=== PATIENT | female | born 1970 | race Caucasian/White ===

== ENCOUNTER 2020-08-24 21:05 | Observation (INO) | payer BC, SELFPAY ==
[2020-08-24] VITALS (17 sets, daily range): BP systolic 127–141; BP diastolic 72–91; PULSE 63–81; RESP 12–25; TEMP 36.5; O2SAT 95–100
--- NOTE | 2020-08-24 21:15 | RT.EKG_ITS ---
APPROVED REPORT Exam: Resting ECG Reason for Exam: dr orozco Patient Location: E HR:69 bpm ECG Measurements Heart Rate 69 AXIS MO 150 P -32 QRSd 94 QRS 70 QT 386 T 4 QTc 412 Conclusion Sinus rhythm...normal P axis, V-rate 60- 99 Probable left ventricular hypertrophy...multiple LVH criteria Abnormal T, consider ischemia, anterior leads...T <-0.20mV, V2-V4. T wave inversion in lead III, aVF, V2-4. 1mm ST depression in V3. No STEMI. I have reviewed and interpreted ECG and agree with software generated interpretation.
--- NOTE | 2020-08-24 21:24 | ED.GENADUL_ITS ---
Discharge Plan Disposition Patient Disposition: [facility] INPATIENT Condition: Stable Discharge Details Clinical Impression: Palpitations, Elevated troponin, Abnormal EKG Admit Date/Time: 08/24/20 22:56 Admit Provider: Baldev Tong Attending Provider: Baldev Tong Primary Care Provider: Evert Perdomo ED Provider: Radha Haro Discharge Data Discharge Date/Time-TO BE ENTERED AT DEPARTURE: 08/25/20 00:15 Medical Decision Making 50-year-old female with a history of breast cancer diagnosed in 2011 with double ostectomy, now with recurrence since February 2019 on monthly Faslodex presents with palpitations since her last Faslodex injection 4 days ag Denies any chest pain, shortness of breath or dizziness. She is hemodynamically stable. EKG notes T wave inversions in inferior and anterior leads and ST depression and V3. No STEMI but EKG is concerning. Will obtain a cardiac work- up and discuss with cardiology. She requests [facility] as she is followed by her pcp and oncology there. Labs reviewed and note an elevated troponin at 0.1. Magnesium 1.7, will replete. Chest x-ray negative. Case discussed and EKG reviewed with [facility] cardiology Dr. Hahn --he does not feel the EKG and the troponin are consistent with ischemia. Suspect most likely cardiomyopathy. Is agreeable with plan for aspirin but does not recommend P lavix or heparin. Accepts patient for transfer tomorrow as there are currently no beds available and accepting transfers in [address] Hahn --he recommends contacting him if a repeat troponin is greater than 2. Plan discussed with patient and she is agreeable. Case discussed with hospitalist who accepts patient for admission while awaiting transfer to [facility]. Medical Records Medical records reviewed: Yes I reviewed the patient's medical records. Imaging Data Radiologic Study: Radiologist's impression: XR CHEST 2V PA LATERAL CLINICAL HISTORY: palpitations, r/o acute disease TECHNIQUE: 2D digital imaging was performed. COMPARISON: No exams were available for comparison FINDINGS: MEDIASTINUM: Normal. HEART: Normal. PULMONARY VASCULATURE: Normal. LUNGS: Clear. PLEURAL SPACE: No pleural effusion or pneumothorax. BONE:Mild pectus excavatum deformity. OTHER FINDINGS:Surgical clips anterior chest related to previous breast surgery. IMPRESSION: No acute pulmonary findings. Lab Data Lab results reviewed: Yes I reviewed the patient's lab results. ECG Data Attestation: I personally reviewed and interpreted this ECG (s) as follows: Interpretation: Rate of 69, sinus, T wave inversions in lead III, aVF, V2, V3 and V4. Questionable ST depression in V3. No STEMI. HPI General Mode of arrival: ambulatory . Date/Time Provider Initiated Documentation: 08/24/20 21:23 . Limitations to Documentation: no limitations . Information obtained by: patient . HPI Narrative: Patient is a 50-year-old female with a history of breast cancer first diagnosed in 2011 treated with double discectomy and a clean lymph node resection and tamoxifen with negative follow-up PET scans with recurrence of breast cancer noted on a cystectomy to the breast in February 2019 treated briefly with tamoxifen and currently now on Faslodex for the past 6 months presents with a feeling of skipped beats after her Faslodex injection on Thursday. Patient states she has been receiving Faslodex injections once monthly for the past 6 months and denies any previous reaction to this. She states within 2 to 3 hours of the injection she developed sensation of her heart skipping or missing a beat . She denies any fever, chest pain, shortness of breath, dizziness, nausea, vomiting. She denies any recent illnesses with fever, cough, injury, other new medications including antibiotics. Patient states she called her oncologist at [facility] regarding the symptoms for the past 2 days and was advised to come to the ER for an EKG. Related Data Home Medications Medication Instructions Recorded Confirmed bupropion HCl 300 mg PO DAILY 08/24/20 08/24/20 fulvestrant 500 mg IM QMONTH 08/24/20 08/24/20 lisdexamfetamine [Vyvanse] 40 mg PO DAILY 08/24/20 08/24/20 melatonin 10 mg PO HS PRN 08/24/20 08/24/20 testosterone 1 packet TRANSDERMAL QAM 08/24/20 08/24/20 trazodone 100 mg PO HS 08/24/20 08/24/20 Allergies Allergy/AdvReac Type Severity Reaction Status Date / Time No Known Allergies Allergy Unverified 08/24/20 21:25 Review of Systems All systems reviewed & are unremarkable except as noted in HPI and below Constitutional Constitutional: Reports as per HPI, Denies chills and Denies fever(s) Eyes Eyes: Denies blurry vision ENT Ears, Nose, Mouth, and Throat: Denies dizziness, Denies sore throat and Denies throat swelling Cardiovascular Cardiovascular: Denies chest pain and Denies dyspnea Respiratory Respiratory: Denies cough and Denies dyspnea Gastrointestinal Gastrointestinal: Denies abdominal pain, Denies diarrhea and Denies vomiting Genitourinary Genitourinary: Denies hematuria and Denies dysuria Musculoskeletal Musculoskeletal: Denies back pain and Denies numbness Integumentary/Breasts Skin/Breast: Denies lesions and Denies rash Neurologic Neurologic: Denies dizziness, Denies localized weakness and Denies numbness Allergic/Immunologic Allergic/Immunologic: Denies throat swelling [facility] Medical History Breast cancer Surgical History H/O mastectomy Social History Smoking/Tobacco Use Status: Never Smoking risk assessment performed?: Yes Alcohol Intake: current Alcohol Intake frequency: holidays/special occasions only Substance use type: does not use Do you feel safe at home: Yes Do you feel safe in your relationship?: Yes Exam Const General: cooperative, healthy appearing and no acute distress HENMT Head: normal to inspection Face and sinus: normal facial exam Eyes General: appearance normal, both eyes and all related structures Pupils: PERRL EOM: EOM intact bilaterally Neck Neck: normal visual inspection and No submandibular swelling Lymphatic: no lymphadenopathy noted Chest Chest: normal inspection of the chest and no tenderness Chest/axillae images: 1. Well healed incision scar from prior cystectomy. No cellulitis. Resp Effort & Inspection: normal respiratory effort and able to speak in complete sentences Auscultation: clear to auscultation bilaterally Cardio Rate: regular rate Rhythm: regular rhythm GI Inspection: normal to inspection Palpation: soft, not firm, not rigid and nontender Auscultation: normal bowel sounds Skin General skin exam: no rashes or lesions noted Neuro General: patient alert, patient awake and patient oriented x3 Cognition: normal cognition Speech: speech normal Motor: muscle tone normal throughout Sensory Exam: no sensory deficits noted Extrem General: normal to inspection, full ROM, capillary refill normal, no calf tenderness bilaterally and no edema Psych Appearance: grossly normal Mental Status: mental status grossly normal Speech and Movement: speech and movement normal Affect: normal affect
[2020-08-24 21:40] LABS: Abs Immature Grans 0.05 10^3/uL (0.0-0.06); Absolute Basophil Count 0.03 10^3/uL (0.0-0.2); Absolute Eosinophil Count 0.07 10^3/uL (0.0-0.7); Absolute Lymphocyte Count 1.94 10^3/uL (1.2-3.4); Absolute Monocyte Count 0.55 10^3/uL (0.1-0.8); Absolute Neutrophil Count 6.83 10^3/uL (1.2-6.7); Basophils % 0.3; Eosinophils % 0.7; HCT 40.3 % (36.0-46.0); HGB 13.3 g/dL (11.2-15.7); Immature Grans % 0.5; Lymphocytes % 20.5; MCH 31.1 pg (27.0-33.0); MCV 94.2 fL (80-95); MPV 8.8 fL (8.0-11.0); Monocytes % 5.8; Neutrophils % 72.2; Nucleated RBC 0 %; Platelet Count 223 10^3/uL (130-400); RBC 4.28 10^6/uL (3.93-5.22); RDW 12.4 % (11.7-14.6); RDW-SD 42.8 fL; WBC 9.47 10^3/uL (4.4-10.8)
[2020-08-24 21:58] LABS: ALT 30 U/L (14-59); AST 22 U/L (15-37); Albumin 3.5 g/dL (3.4-5.0); Alkaline Phosphatase 50 U/L (46-116); Anion Gap 7.5 mmol/L (3-11); BUN 27 mg/dL (7-18); Bilirubin, Total 0.3 mg/dL (0.2-1.0); CO2 27.5 mmol/L (21.0-32.0); CREATININE 0.9 mg/dL (0.55-1.02); Calcium 9.2 mg/dL (8.5-10.1); Chloride 106 mmol/L (98-107); Glucose 90 mg/dL (74-106); Magnesium 1.7 mg/dL (1.8-2.4); Potassium 3.8 mmol/L (3.5-5.1); Sodium 141 mmol/L (136-145); Total Protein 6.5 g/dL (6.4-8.2)
--- NOTE | 2020-08-24 23:10 | DI.RAD_ITS ---
Exam(s) XR CHEST 2V PA LATERAL EXAM: XR CHEST 2V PA LATERAL CLINICAL HISTORY: palpitations, r/o acute disease TECHNIQUE: 2D digital imaging was performed. COMPARISON: No exams were available for comparison FINDINGS: MEDIASTINUM: Normal. HEART: Normal. PULMONARY VASCULATURE: Normal. LUNGS: Clear. PLEURAL SPACE: No pleural effusion or pneumothorax. BONE:Mild pectus excavatum deformity. OTHER FINDINGS:Surgical clips anterior chest related to previous breast surgery. IMPRESSION: No acute pulmonary findings. DATA REPOSITORY: RADIATION DOSE DELIVERED:
[2020-08-24] MEDS: Aspirin 325 MG TAB PO (23:14)
[2020-08-24 23:23] LABS: Source Nasal/Nares
--- NOTE | 2020-08-24 23:30 | DI.VRAD_ITS ---
PROCEDURE INFORMATION: Exam: XR Chest Exam date and time: 08/24/2020 11:06 PM Age: 50 years old Clinical indication: Pain; Other: Palpitations, rule out acute disease TECHNIQUE: Imaging protocol: XR of the chest. Views: 2 views. COMPARISON: No relevant prior studies available. FINDINGS: Lungs: Unremarkable. No consolidation. Pleural spaces: Unremarkable. No pleural effusion. No pneumothorax. Heart/Mediastinum: Unremarkable. No cardiomegaly. Bones/joints: Unremarkable. Soft tissues: Surgical clips are noted in the chest wall regions bilaterally, presumably related to previous breast surgery. IMPRESSION: No evidence for acute abnormality. Dictated and Authenticated by: My Hart MD. Ordering:FLACO Garcia MD
[2020-08-24] MEDS: MAGNESIUM SULFATE 1 GM/100 ML BAG IVPB (23:53)
[2020-08-25] VITALS (8 sets, daily range): BP systolic 94–106; BP diastolic 47–66; PULSE 56–77; RESP 14–20; TEMP 36.5–36.9; O2SAT 95–98
[2020-08-25 00:14] LABS: COVID-19 PCR Negative (Negative)
[2020-08-25 00:27] LABS: Troponin I 0.11 ng/mL (<0.06)
--- NOTE | 2020-08-25 07:17 | W.PM.HP.N ---
Date of service: 08/24/20 Time of Service: 21:00 [facility] Medical History Breast cancer Surgical History H/O mastectomy Social History Smoking/Tobacco Use Status: Never Smoking risk assessment performed?: Yes Alcohol Intake: current Alcohol Intake frequency: holidays/special occasions only Substance use type: does not use Do you feel safe at home: Yes Do you feel safe in your relationship?: Yes Meds Allergies and Home Medications Allergies Allergy/AdvReac Type Severity Reaction Status Date / Time No Known Allergies Allergy Unverified 08/24/20 21:25 Home Medications Medication Instructions Recorded Confirmed Type bupropion HCl 300 mg PO DAILY 08/24/20 08/24/20 History fulvestrant 500 mg IM QMONTH 08/24/20 08/24/20 History lisdexamfetamine [Vyvanse] 40 mg PO DAILY 08/24/20 08/24/20 History melatonin 10 mg PO HS PRN 08/24/20 08/24/20 History testosterone 1 packet TRANSDERMAL QAM 08/24/20 08/24/20 History trazodone 100 mg PO HS 08/24/20 08/24/20 History Results Labs Result diagrams: 08/24/20 21:30 08/24/20 21:30 Labs: Laboratory Results - last 24 hr 08/24/20 08/24/20 08/24/20 21:30 21:30 23:22 WBC 9.47 RBC 4.28 Hgb 13.3 Hct 40.3 MCV 94.2 MCH 31.1 MCHC 33.0 RDW 12.4 Plt Count 223 MPV 8.8 Immature Gran % 0.5 Neutrophils % 72.2 Lymphocytes % 20.5 Monocytes % 5.8 Eosinophils % 0.7 Basophils % 0.3 Nucleated RBC % 0 Absolute Neutrophils 6.83 H Absolute Lymphocytes 1.94 Absolute Monocytes 0.55 Absolute Eosinophils 0.07 Absolute Basophils 0.03 Sodium 141 Potassium 3.8 Chloride 106 Carbon Dioxide 27.5 Anion Gap 7.5 BUN 27 H Creatinine 0.9 Estimated GFR/1.73 m2 >= 60.00 Glucose 90 Calcium 9.2 Magnesium 1.7 L Total Bilirubin 0.3 AST 22 ALT 30 Alkaline Phosphatase 50 Troponin I 0.10 H* Total Protein 6.5 Albumin 3.5 COVID-19 Source Nasal/Nares SARS-CoV-2 (PCR) Negative 08/25/20 08/25/20 00:00 01:53 WBC RBC Hgb Hct MCV MCH MCHC RDW Plt Count MPV Immature Gran % Neutrophils % Lymphocytes % Monocytes % Eosinophils % Basophils % Nucleated RBC % Absolute Neutrophils Absolute Lymphocytes Absolute Monocytes Absolute Eosinophils Absolute Basophils Sodium Potassium Chloride Carbon Dioxide Anion Gap BUN Creatinine Estimated GFR/1.73 m2 Glucose Calcium Magnesium Total Bilirubin AST ALT Alkaline Phosphatase Troponin I 0.11 H* 0.10 H* Total Protein Albumin COVID-19 Source SARS-CoV-2 (PCR) Last Vital Signs Temp 36.9 C 08/25/20 03:10 Pulse 62 08/25/20 04:01 Resp 20 08/25/20 03:10 BP 96/60 L 08/25/20 03:10 Pulse Ox 96 08/25/20 03:10
--- NOTE | 2020-08-25 07:55 | HPE_ITS ---
Date of service: 08/24/20 Time of Service: 21:00 Assessment and Plan Assessment and plan (1) Palpitations: Status: Acute Assessment and plan: These are stable. Will admit and monitor. (2) Elevated troponin: Status: Acute Assessment and plan: Serial troponins will be done. Patient is accepted for transfer to [facility] in [place], [place] to the cardiology service when a bed is available. (3) Abnormal EKG: Status: Acute Assessment and plan: ECG is non specific. No prior ECG is available for comparison. History of Present Illness History of Present Illness Chief Complaint: Palpitations Narrative: This 50-year-old female has a history of breast cancer. She had mastectomies done in 2011. She developed a cyst that was found to be malignant a year ago. She has been treated with Faslodex by oncology at [facility]. Her last dose was done 3 days ago and she developed some nausea following that dose. She also developed intermittent palpitations since then. She has felt single episodes of skipped beats but no episodes of rapid palpitations. She called her oncologist who recommended she get a electrocardiogram done. She could not get it done through her doctor's office so she presented to the emergency department. Evaluation was done in the department and she was found to have a slightly abnormal electrocardiogram and a slightly elevated troponin. Consultation was done with [facility] cardiology who accepted her for transfer however no beds were available so she is going to be transferred on August 25 when a bed is available. Echocardiogram is not available here in the next week. Review of Systems Constitutional Constitutional: Denies body ache(s), Denies chills, Denies fever(s) and Denies weakness Cardiovascular Cardiovascular: Denies chest pain, Reports irregular heart rhythm and Denies dyspnea Respiratory Respiratory: Denies cough and Denies dyspnea Gastrointestinal Gastrointestinal: Denies constipation, Denies diarrhea and Denies vomiting Musculoskeletal Musculoskeletal: Denies joint swelling Neurologic Neurologic: Denies weakness [facility] Medical History (Updated 08/24/20 @ 22:58 by Radha Haro DO) Breast cancer Surgical History (Updated 08/24/20 @ 22:15 by Filomena Barba) H/O mastectomy Social History Smoking/Tobacco Use Status: Never Smoking risk assessment performed?: Yes Alcohol Intake: current Alcohol Intake frequency: holidays/special occasions only Substance use type: does not use Do you feel safe at home: Yes Do you feel safe in your relationship?: Yes Meds Allergies and Home Medications Allergies Allergy/AdvReac Type Severity Reaction Status Date / Time No Known Allergies Allergy Unverified 08/24/20 21:25 Home Medications Medication Instructions Recorded Confirmed Type bupropion HCl 300 mg PO DAILY 08/24/20 08/24/20 History fulvestrant 500 mg IM QMONTH 08/24/20 08/24/20 History lisdexamfetamine [Vyvanse] 40 mg PO DAILY 08/24/20 08/24/20 History melatonin 10 mg PO HS PRN 08/24/20 08/24/20 History testosterone 1 packet TRANSDERMAL QAM 08/24/20 08/24/20 History trazodone 100 mg PO HS 08/24/20 08/24/20 History Exam Const General: cooperative, healthy appearing, comfortable and no acute distress Nutritional Appearance: average body habitus and well nourished Neck Neck: normal visual inspection and no lymphadenopathy Resp Effort & Inspection: normal respiratory effort and able to speak in complete sentences Auscultation: clear to auscultation bilaterally Cardio Jugular venous pressure: no JVD Rhythm: regular rhythm and other (occasional extra beats that are PVC on monitor. ) Heart Sounds: S1 normal, S2 normal, no click, no gallops and no murmurs GI Inspection: normal to inspection and non-distended Palpation: nontender and No ascites Neuro General: patient alert, patient awake and patient oriented x3 Results Labs Result diagrams: 08/24/20 21:30 08/24/20 21:30 Labs: Laboratory Results - last 24 hr 08/24/20 08/24/20 08/24/20 21:30 21:30 23:22 WBC 9.47 RBC 4.28 Hgb 13.3 Hct 40.3 MCV 94.2 MCH 31.1 MCHC 33.0 RDW 12.4 Plt Count 223 MPV 8.8 Immature Gran % 0.5 Neutrophils % 72.2 Lymphocytes % 20.5 Monocytes % 5.8 Eosinophils % 0.7 Basophils % 0.3 Nucleated RBC % 0 Absolute Neutrophils 6.83 H Absolute Lymphocytes 1.94 Absolute Monocytes 0.55 Absolute Eosinophils 0.07 Absolute Basophils 0.03 Sodium 141 Potassium 3.8 Chloride 106 Carbon Dioxide 27.5 Anion Gap 7.5 BUN 27 H Creatinine 0.9 Estimated GFR/1.73 m2 >= 60.00 Glucose 90 Calcium 9.2 Magnesium 1.7 L Total Bilirubin 0.3 AST 22 ALT 30 Alkaline Phosphatase 50 Troponin I 0.10 H* Total Protein 6.5 Albumin 3.5 COVID-19 Source Nasal/Nares SARS-CoV-2 (PCR) Negative 08/25/20 08/25/20 00:00 01:53 WBC RBC Hgb Hct MCV MCH MCHC RDW Plt Count MPV Immature Gran % Neutrophils % Lymphocytes % Monocytes % Eosinophils % Basophils % Nucleated RBC % Absolute Neutrophils Absolute Lymphocytes Absolute Monocytes Absolute Eosinophils Absolute Basophils Sodium Potassium Chloride Carbon Dioxide Anion Gap BUN Creatinine Estimated GFR/1.73 m2 Glucose Calcium Magnesium Total Bilirubin AST ALT Alkaline Phosphatase Troponin I 0.11 H* 0.10 H* Total Protein Albumin COVID-19 Source SARS-CoV-2 (PCR) Last Vital Signs Temp 36.5 C 08/25/20 07:42 Pulse 75 08/25/20 07:42 Resp 16 08/25/20 07:42 BP 94/57 L 08/25/20 07:42 Pulse Ox 98 08/25/20 07:42
[2020-08-25] MEDS: buPROPion-XL 150 MG TABCR 300 MG PO (08:33)
[2020-08-25 08:34] LABS: Troponin I 0.09 ng/mL (<0.06)
[2020-08-25] MEDS: Aspirin 81 MG CHEW PO (08:34)
--- NOTE | 2020-08-25 08:43 | W.PM.DS.N ---
Date of service: 08/25/20 Time of Service: 08:44 DS: Diagnosis Discharge Diagnosis (1) Palpitations: Start date: 08/25/20 Start time: 08:44 Status: Acute Asessment and Plan: Stable being transferred to [facility] where she receives care for breast care and last dose Faslodex was 3 days ago. Since developing palpitations and feeling of skipped beats. Oncology would like an echo done, which is not available to us, therefore she is being transferred to [facility] for further management (2) Elevated troponin: Start date: 08/25/20 Start time: 08:55 Status: Acute Asessment and Plan: Accepted to [facility], trops trending down (3) Abnormal EKG: Start date: 08/25/20 Start time: 08:56 Status: Acute Asessment and Plan: ECG is non specific. No prior ECG is available for comparison. discussed with Dr. Salvador Discharge Plan Disposition Patient Disposition: [facility] Condition: Stable Discharge Details Reason For Visit: PALPITATIONS,ELEVATED TROPONIN,ABNORMAL EKG Admit Date/Time: 08/24/20 22:56 Admit Provider: Baldev Tong Attending Provider: Baldev Tong Primary Care Provider: Evert Perdomo Hospital Course Hospital Course: This 50-year-old female has a history of breast cancer. She had mastectomies done in 2011. She developed a cyst that was found to be malignant a year ago. She has been treated with Faslodex by oncology at [facility]. Her last dose was done 3 days ago and she developed some nausea following that dose. She also developed intermittent palpitations since then. She has felt single episodes of skipped beats but no episodes of rapid palpitations. She called her oncologist who recommended she get a electrocardiogram done. She could not get it done through her doctor's office so she presented to the emergency department. Evaluation was done in the department and she was found to have a slightly abnormal electrocardiogram and a slightly elevated troponin. Consultation was done with [facility] cardiology who accepted her for transfer however no beds were available so she is going to be transferred on August 25 when a bed is available. Echocardiogram is not available this week. [facility] called bed available, patient being transferred to [facility] for further care. Home Meds and New Rx's Prescriptions: No Action trazodone 100 mg tablet 100 mg PO HS RF: 0 fulvestrant 250 mg/5 mL Syringe 500 mg IM QMONTH RF: 0 bupropion HCl 300 mg tablet extended release 24 hr 300 mg PO DAILY RF: 0 Vyvanse 40 mg capsule 40 mg PO DAILY RF: 0 melatonin 10 mg Tablet 10 mg PO HS PRNRF: 0 testosterone 1 % (25 mg/2.5gram) Gel In Packet 1 packet TRANSDERMAL QAM RF: 0 Discharge Instructions Stand Alone Forms: Nursing Discharge Form Activity:: Activity as Tolerated Equipment/Supplies:: No Equipment Needed Diet:: As Tolerated Discharge Orders Discharge Orders: Discharge Order (Routine); Ordered 08/25/20 Ordered By: Brenda Medrano DS: Summary Time Spent with Patient providing and/or coordinating discharge services: Less than 30 minutes Status at Discharge Functional status at discharge: independent ambulation Overall status at discharge: patient is not back to baseline Mental Status: mental status grossly normal Speech and Movement: speech and movement normal Mood: congruent mood Affect: normal affect Exam Const General: cooperative, healthy appearing, comfortable and no acute distress Nutritional Appearance: average body habitus and well nourished Neck Neck: normal visual inspection and no lymphadenopathy Resp Effort & Inspection: normal respiratory effort and able to speak in complete sentences Auscultation: clear to auscultation bilaterally Cardio Jugular venous pressure: no JVD Rhythm: regular rhythm and other (occasional extra beats that are PVC on monitor. ) Heart Sounds: S1 normal, S2 normal, no click, no gallops and no murmurs GI Inspection: normal to inspection and non-distended Palpation: nontender and No ascites Neuro General: patient alert, patient awake and patient oriented x3 Psych Mental Status: mental status grossly normal Speech and Movement: speech and movement normal Mood: congruent mood Affect: normal affect DS: Data Vitals/I&O Vitals and I&O: Vital Signs Temperature 36.5 C 08/25/20 07:42 Temperature Source Skin 08/25/20 07:42 Pulse 75 08/25/20 07:42 Pulse Rhythm Regular 08/25/20 00:21 Pulse 77 08/25/20 00:00 Respiratory Rate 16 08/25/20 07:42 Respiratory Effort Non-Labored 08/25/20 00:21 Respiratory Depth Normal 08/25/20 00:21 Respiratory Pattern Normal 08/25/20 00:21 Blood Pressure 94/57 L 08/25/20 07:42 Blood Pressure Mean 100 08/24/20 22:46 Pulse Oximetry 98 08/25/20 07:42 Oxygen Delivery Method Room Air 08/25/20 07:42 Oxygen Flow Rate 0 08/25/20 07:42 Pain Level 0 08/25/20 07:42 Intake & Output 08/24/20 08/24/20 08/25/20 11:59 23:59 11:59 Output Total 250 / 250 Balance -250 / -250 Weight 63.503 kg 64.3 kg Output: Urine 250 / 250 Other: Urine Color Yellow Urine Appearance Clear Urine Odor Normal Voiding Methods Toilet Data Completed and Pending Completed studies during hospitalization [Text1]: Exam(s) PROCEDURE INFORMATION: Exam: XR Chest Exam date and time: 08/24/2020 11:06 PM Age: 50 years old Clinical indication: Pain; Other: Palpitations, rule out acute disease TECHNIQUE: Imaging protocol: XR of the chest. Views: 2 views. COMPARISON: No relevant prior studies available. FINDINGS: Lungs: Unremarkable. No consolidation. Pleural spaces: Unremarkable. No pleural effusion. No pneumothorax. Heart/Mediastinum: Unremarkable. No cardiomegaly. Bones/joints: Unremarkable. Soft tissues: Surgical clips are noted in the chest wall regions bilaterally, presumably related to previous breast surgery. IMPRESSION: No evidence for acute abnormality. Labs on day of discharge: Labs from last 24 hours 08/25/20 08/25/20 08/25/20 08:07 01:53 00:00 WBC RBC Hgb Hct MCV MCH MCHC RDW Plt Count MPV Immature Gran % Neutrophils % Lymphocytes % Monocytes % Eosinophils % Basophils % Nucleated RBC % Absolute Neutrophils Absolute Lymphocytes Absolute Monocytes Absolute Eosinophils Absolute Basophils Sodium Potassium Chloride Carbon Dioxide Anion Gap BUN Creatinine Estimated GFR/1.73 m2 Glucose Calcium Magnesium Total Bilirubin AST ALT Alkaline Phosphatase Troponin I 0.09 H* 0.10 H* 0.11 H* Total Protein Albumin COVID-19 Source SARS-CoV-2 (PCR) 08/24/20 08/24/20 08/24/20 23:22 21:30 21:30 WBC 9.47 RBC 4.28 Hgb 13.3 Hct 40.3 MCV 94.2 MCH 31.1 MCHC 33.0 RDW 12.4 Plt Count 223 MPV 8.8 Immature Gran % 0.5 Neutrophils % 72.2 Lymphocytes % 20.5 Monocytes % 5.8 Eosinophils % 0.7 Basophils % 0.3 Nucleated RBC % 0 Absolute Neutrophils 6.83 H Absolute Lymphocytes 1.94 Absolute Monocytes 0.55 Absolute Eosinophils 0.07 Absolute Basophils 0.03 Sodium 141 Potassium 3.8 Chloride 106 Carbon Dioxide 27.5 Anion Gap 7.5 BUN 27 H Creatinine 0.9 Estimated GFR/1.73 m2 >= 60.00 Glucose 90 Calcium 9.2 Magnesium 1.7 L Total Bilirubin 0.3 AST 22 ALT 30 Alkaline Phosphatase 50 Troponin I 0.10 H* Total Protein 6.5 Albumin 3.5 COVID-19 Source Nasal/Nares SARS-CoV-2 (PCR) Negative [facility] Medical History Breast cancer Surgical History H/O mastectomy Social History Smoking/Tobacco Use Status: Never Smoking risk assessment performed?: Yes Alcohol Intake: current Alcohol Intake frequency: holidays/special occasions only Substance use type: does not use Do you feel safe at home: Yes Do you feel safe in your relationship?: Yes
== END 2020-08-25 09:33 ==
LOC: ER 23:04 → MS 08-25 00:16
PROVIDERS: Admitting Provider Family Medicine; Emergency Provider Physician Assistant; PCP Internal Medicine; Visit Provider Family Medicine
DX: R00.2 Palpitations (principal); R94.31 Abnormal electrocardiogram [ECG] [EKG]; R74.8 Abnormal levels of other serum enzymes; C50.919 Malignant neoplasm of unspecified site of unspecified female breast; Z79.899 Other long term (current) drug therapy; Z20.822 Contact with and (suspected) exposure to COVID-19
CPT/HCPCS: 36415; 80053; 81025; 87635; 93005; 96365; 99285; 71046; 83735; 84484; 85025; 93010; 99217; G0378; J3475

== ENCOUNTER 2020-08-31 14:32 | Outpatient (RCR) | payer BC, SELFPAY ==
--- NOTE | 2020-08-31 14:30 | HOLTER_ITS ---
APPROVED REPORT Conclusion There is a 24-hour monitor ordered for indication of palpitations. Patient was in normal sinus rhythm with majority the recording with an average heart rate of 86 bpm. There were no episodes of ventricular tachycardia and rare PVCs. There was 1, 6 beat run of SVT and rare PACs. There were no episodes of atrial fibrillation, no pauses greater than 3 seconds and no evidence of hi gh degree. There are multiple patient triggered events (emailed to me after the monitor was delivered) associate d with skipped beats. Most of these episodes are associated with sinus tachycardia and occasional PV C.
== END 2020-09-22 23:59 | disposition home or self-care (01) ==
LOC: RT 14:32
PROVIDERS: PCP Internal Medicine; Visit Provider Physician Assistant
DX: R00.2 Palpitations (principal); I47.1 Supraventricular tachycardia; I45.9 Conduction disorder, unspecified; I49.3 Ventricular premature depolarization
CPT/HCPCS: 93225; 93226

== ENCOUNTER 2021-11-20 15:26 | Outpatient (CLI) | payer BC, SELFPAY ==
--- NOTE | 2021-11-20 15:15 | DI.RAD_ITS ---
Exam(s) XR SHOULDER RT COMPLETE 2+V EXAM: XR SHOULDER RT COMPLETE 2+V CLINICAL HISTORY: pain TECHNIQUE: COMPARISON: No exams were available for comparison FINDINGS: Three views were obtained. There are vascular clips projected over the right axilla and the thoracic midline. Cartilaginous joint space of the glenohumeral joint appears well maintained. No bony or soft tissue abnormality seen. IMPRESSION: RADIATION DOSE DELIVERED: Total DLP
== END 2021-11-20 15:27 | disposition home or self-care (01) ==
LOC: DIORS 15:27
PROVIDERS: PCP Internal Medicine; Referring Provider Internal Medicine; Visit Provider Physician Assistant Surgical
DX: S49.91XA Unspecified injury of right shoulder and upper arm, initial encounter (principal); X58.XXXA Exposure to other specified factors, initial encounter
CPT/HCPCS: 73030

== ENCOUNTER → 2021-11-29 00:18 | Outpatient (CLI) | payer BC, SELFPAY ==
--- OUTSIDE RECORDS SUMMARY | 2021-11-29 00:20 | XMS_ITS | Encounter Summary ---
:1970 Author Organization [facility] [address] Care Team Providers Name Role Phone Filomena Ochoa Primary Care Provider Reason for Referral Psychiatric (Routine) - Closed Specialty Diagnoses / Procedures Referred By Contact Refer red To Contact Hematology and Diagnoses Malignant neoplasm of overlapping sites of right breast in female, estrogen receptor positive Dustin Camp MD [facility] [address] [facility] enter [address] HEMATOLOGY/ONCOLOGY [place], [place] DEPT. [id number] [place] [address] Referral ID Status Reason Start Date Expiration Date Visits V isits Requested Authorized [id number] Closed Specialty 11/30/2019 11/29/2020 1 1 Service Requested Reason for Visit Reason Comments Follow-up Consultation (Routine) - Closed Specialty Diagnoses / Procedures Referred By Contact Refer red To Contact Hematology and Diagnoses Malignant neoplasm of unspecified site of unspecified female breast RECURRENT RIGHT BREAST CANCER Filomena Ochoa Schwartz, Gary N, [facility] [address] [place] HEMATOLOGY/ON COLOGY [id number] [place] [address] Phone: Fax: Referral ID Status Reason Start Date Expiration Date Visits V isits Requested Authorized [id number] Closed Consult, Test 10/17/2019 10/16/2020 1 [facility] PCP Updated and/or Approved Encounter Details Date Type Department Care Team Description 11/29/2019 Office Visit Hematology and Dustin Camp MD [facility] DR HEMATOLOGY/[place] [address] Malignant neoplasm of [place] [facility] Suad Worthy, LAMAR overlapping sites of [facility] right young ast in Drive female, estrogen [place], [place] [id number] Social History Tobacco Use Types Packs/Day Years Used Date Never Smoker Smokeless Tobacco: Never Used Alcohol Use Standard Drinks/Week Comments Not Currently 0 (1 standard drink = 0.6 oz pure alcoho l) occ Alcohol Habits Answer Date Recorded How often do you have a drink containing alcohol? Not asked How many drinks containing alcohol do you have on a typical Not asked day when you are drinking? How often do you have six or more drinks on one occasion? No t asked Comment: occ 11/02/2018 Sex Assigned at Date Recorded Not on file documented as of this encounter Last Filed Vital Signs Vital Sign Reading Time Taken Comments Blood Pressure 128/66 11/29/2019 9:09 AM EDT Pulse 77 11/29/2019 9:09 AM EDT Temperature 35.9 ??C (96.7 ??F) 11/29/2019 9:09 AM EDT Respiratory Rate 18 11/29/2019 9:09 AM EDT Oxygen Saturation 100% 11/29/2019 9:09 AM EDT Inhaled Oxygen Concentration - - Weight 65.2 kg (143 lb 12.8 oz) 11/29/2019 9:09 AM EDT Height 168.4 cm (5' 6.3) 11/29/2019 9:09 AM EDT Body Mass Index 23 11/29/2019 9:09 AM EDT documented in this encounter Progress Notes Dustin Camp MD - 11/29/2019 9:00 AM EDT Subjective: Patient ID: Jia Dow is a 49 y.o. female who is self-referred for an opinion regarding systemicadjuvant therapy. HPI Ms. Dow presented in 2011 with a palpable mass in the right breast. 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 On August 14, 2011 she underwent bilateral mastectomies, a right sentinel node biopsy, and bilateral immediate implant reconstructions. There was a multifocal invasive ductal carcinoma with foci measuring 12, 1.8, and less than 1 mm. Estrogen receptors were positive in 95% of cells, progesterone receptors were positive in 95% of cells, and Her-2 was 2+ by IHC but unamplified by FISH. Four sentinel nodes were negative. Her Oncotype Recurrence Score was 20. She received tamoxifen from August 2011 until February 2016 which was complicated by depression, a decline in libido, hot flashes, and a vaginal discharge. She tried toremifene briefly in 2016 and did not better. She notes a skin nodule in proximity to the mastectomy scar in mid-2017, and it was excised on March 16, 2019. There was a focus of a well-differentiated (SBR=5) invasive ductal carcinoma excised with positive margins, strongly estrogen receptor positive in 95% of cells, strongly progesterone receptor positive in 95% of cells, andHer-2 0 by IHC. There was a re-excision on April 08 that found a low grade (SBR=4) invasive ductal carcinoma with tubular features within the dermis measuring 4 mm, excised with a 1 mm inferior margin. She resumed tamoxifen at 10 mg daily on May 16, 2019, but she stopped it again on October 10. She received radiotherapy from June 26 through July 15, 2019, 40.05 Gy in 15 fractions to a field limited to the excision scar. The tamoxifen had been complicated by depression, mood swings and emotional lability, and word-finding difficulties. She also had escalating hot flashes with sweats. These side effects resolved quicklyoff the tamoxifen. Her mood is fine now on bupropion 300 mg daily, she has night sweats every night but she has infrequent hot flashes. She has pain in her lower back and in her knees. 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 Review of Systems She denies a cough, shortness of breath, chest pain, nausea, vomiting, diarrhea, constipation, headaches, double vision, skin rashes, pain, redness, or swelling in her lower extremities, or any other sites of joint or skeletal pain. The remainder of her review of systems is negative. Past Medical History: ADHD Depression S/p hand surgery in Family History: Her maternal grandmother was diagnosed with breast cancer A brother was diagnosed with thyroid cancer She tested negative for a germline mutation in BRCA 1/2 on BRACAnalysis in 2011. 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 Her Dexa scan from July 12, 2019 showed T scores of -0.8 at the femur, -1.0 at the femoral neck, and -1.[address] A [address] of the CAP from April 06, 2019 showed only a sclerotic focus in the right ilium consistent with a bone island. A bone scan from April 06, 2019 showed degenerative joint disease of bilateral shoulders, the sternoclavicular joints, and the right ankle. Assessment and Plan: Ms. Dow is a 49 year old woman with a focal chest wall recurrence of a low grade invasive ductal carcinoma, strongly estrogen and progesterone receptor positive and Her-2 negative. She has no evidence of distant metastases. She has been unable to tolerate tamoxifen and she is looking for advice on adjuvant therapy. She tells me that she had a conversation with a pathologist at [facility] who told her that the tumor in the skin was probably an implant along a needle track or had arrived by contiguous spread and did not need to be managed seriously. I first discussed with her the clinical significance of this recurrence. The metastatic implant is found in dermis, there is no evidence of normal breast tissue in the biopsy specimen. There is no evidence on the initial mastectomy specimen that the tumor involved the margin of the mastectomy specimen, so it is highly unlikely that the tumor arrived within the dermis by contiguous spread. There is no evidence that breast cancers, particularly low grade breast cancers, canseed the needle track after a percutaneous biopsy. Therefore, I have to conclude that the cancer arrived at this site through lymphovascular spread. Although the focus of spread is small and of low grade, it is illogical to conclude that this would be the only site of tumor spread. We have a number of case series of locoregional recurrence of breast cancers after mastectomy. Juan et al (IJROBP 37:853, 1996) published a series of 145 patients with locoregional recurrence after mastectomy. Five year survival for the group as a whole was only 42%, as recurrences occurred in 89% of patients within five years. They identified a number of clinical features which define a relatively favorable prognosis, including T2 or smaller primary tumors, node negativity, absence of LVI, hormone receptor positivity, small size of the recurrence, and ability to control the site of recurrence, all of which apply to Ms. Dow. The five year survival in the favorable subgroup ranged only from 33% to 65%. A second survey (Damon Junior et al. IJROBP 57:128, 2002) identified patients with chest wall recurrences who received radiotherapy for their chest wall recurrence. Among patients with T1-T2N0 primary tumors at diagnosis, five year distant metastasis free survival was 75% and overall survival was 80%. Therefore, although she has a relatively favorable prognosis for a chest wall recurrence, the mere fact of a chest wall recurrence is associated with an increased risk of distant recurrence and of breast cancer mortality. In general, adjuvant endocrine therapy reduces breast cancer mortality by one-third. If her risk of breast cancer mortality without endocrine therapy is 20-50% at five years, then endocrine therapy would be expected to reduce her absolute risk of breast cancer mortality by 7-17%. The CALOR trial showed that endocrine therapy is appropriate systemic therapy for an estrogen receptor positive Her-2 negative local recurrence. Optimal treatment for a premenopausal patient with a local recurrence after four to five years of adjuvant tamoxifen might not be tamoxifen, I would consider either ovarian suppression alone, or in combination with an aromatase inhibitor. Given that she is unable or unwilling to resume tamoxifen at either a reduced dose or a full dose, I think ovarian suppression/ablation would be a better choice forher. The ZIPP trial showed that the efficacy of two years of ovarian suppression is equivalent to that of five years of tamoxifen. Given the neuropsychiatric effects she has had from tamoxifen, I wouldrecommend a referral to Janeth Herrmann in psychiatry to help with management of depression or mood swi ngs with future endocrine interventions. I suggested starting with low dose goserelin at 3.6 mg subcut every 28 days to determine her tolerability of ovarian suppression. I told her that the effects ofone dose of goserelin may persist for three to six months and may include hot flashes, night sweats,mood swings, and longer term effects may include a loss of bone density. Jia expressed concern over the potential effects of ovarian suppression on her mood, cognition, and ability to exercise, yet she is willing to continue this discussion. She has a friend who referred her to me, and I asked her to discuss her friend's experience with her breast cancer treatment with her. I will bring her back in three weeks to meet our psychiatry HATCH TENDER, to resume this discussion, and if she agrees, to receive herfirst dose of goserelin. I answered Ms. Dow's questions, and I gave her my business card so that she could call with any questions. I spent 40 minutes with her, from 9:20 am until 10:00 am, and 30 minutes were spent in counseling about the indications for, risks, and benefits of endocrine therapy for a patient with a local breast cancer recurrence. Dustin Camp MD social services coordinator in Hematology-Oncology Cc: TANIYA Pimentel Cc: Tim Tinajero MD documented in this encounter Plan of Treatment Scheduled Referrals Name Type Priority Associated Diagnoses Order S chedule Referral to Outpatient Referral Routine Malignant neoplasm Or dered: Psychiatry of overlapping sites 020 of right breast in female, estrogen receptor positive documented as of this encounter Visit Diagnoses Diagnosis Malignant neoplasm of overlapping sites of right breast in female, estrogen receptor positive documented in this encounter Care Teams Trimmer Tailer Relationship Specialty Start Date End Date Filomena Ochoa PA PCP - General Family Medicine 11/01/[address] [place] [id number] documented as of this encounter
--- OUTSIDE RECORDS SUMMARY | 2021-11-29 00:20 | XMS_ITS | Encounter Summary ---
:1970 Author Organization [facility] [place] [address] Care Team Providers Name Role Phone Filomena Ochoa Primary Care Provider Encounter Details Date Type Department Care Team Description 11/17/2019 [place] [address] Social History Tobacco Use Types Packs/Day Years Used Date Never Smoker Smokeless Tobacco: Never Used Alcohol Use Standard Drinks/Week Comments Not Currently 0 (1 standard drink = 0.6 oz pure alcoho l) [facility] Alcohol Habits Answer Date Recorded How often [...] on file documented as of this encounter Medications at Time of Discharge Medication Sig Dispensed Refills Start Date End Date ANTHONY'S WORT ORAL Take by mouth. 0 LORAZEPAM ORAL Take by mouth. 0 tamoxifen (Nolvadex) 10 Take 10 mg by mouth 0 mg Tablet 2 times daily. albuterol 90 Inhale 1 puff into 0 12/24/2018 mcg/actuation HFA Aerosol the lungs Every 4 Inhaler hours as needed. buPROPion (WELLBUTRIN XL) 300 mg every 0 09/11/19 19 300 mg Tablet Extended morning. Release 24 hr VYVANSE 40 mg Capsule 0 09/22/2018 traZODone (DESYREL) 100 0 09/10/2018 mg Tablet melatonin/pyridoxine Take by mouth. 0 01/03/2020 (MELATONIN, WITH B6, ORAL) documented as of this encounter Plan of Treatment Not on filedocumented as of this encounter Procedures Procedure Name Priority Date/Time Associated Diagnosis Comme nts SURGICAL PATHOLOGY Routine 11/17/2019 2:32 PM Res ults for this REPORT EDT procedure are i n the results section. SURGICAL PATHOLOGY Routine 11/17/2019 2:30 PM Res ults for this REPORT EDT procedure are i n the results section. documented in this encounter Results Surgical Pathology Report (11/17/2019 2:32 PM EDT) Component Value Ref Test Analysis Performed At [facility] Range Method Time Signature Surgical [id number] ? Location: [facility] Pathology [place] Report The signing pathologist has (i) examined the relevant preparation(s) for the MEMORIAL specimen(s) and (ii) rendered or confirmed the diagnosis(es) . [facility] . ?Surgic al Pathology DIAGNOSIS CONSULTATION CASE Outside slide(s) labeled [id number], collection date 04/08/19 20. Right breast, mastectomy site, skin excision: - Well differentiated invasive adenocarcinoma, compatible wi th breast ??low-grade invasive ductal carcinoma (see Discussion). ??- Tumor measures 0.4 cm in greatest dimension in this spe cimen. ??- Margins negative; closest margin is 1.0 mm to inferior margin. ??- No lymphovascular invasion identified. ??- Focal prior biopsy/surgical site and dermal scar presen t. Electronically signed by: ??Carrie Gomez DO Verified: ??11/18/2019 ?Pathologist Performed at: ??[facility] [place], [place], [place] DISCUSSION It does not appear that ER, AR, and HER2 studies were performed on this specimen from the outside surgical p athology report. If clinically relevant, a block can be requested and these studies can be performed. Please also see [id number]. SPECIMEN(S) SUBMITTED CONSULTATION CASE A - 9 slide(s) labeled [id number], collection date 04/08/2019 . [id number] Report to: [facility] Surgical Pathology Department [facility], [place], [address], [place] ??[address] CLINICAL INFORMATION Recurrent Breast Cancer skin right mastectomy site SPECIMEN PROCESSING [facility] ([facility]) pathology slide(s) are reviewed. ??Refer to Diagnosis and Specimen Submitted for specific case infor juan carlosbuzz. For the full text of the [facility] ([facility]) report(s) please refer to Non- Documentati on Pathology in the electronic health record (eDH). Specimen (Source) Anatomical Collection Method Collection Time Re ceived Time Location / / Volume Laterality 11/17/2019 2:32 PM EDT Dustin Camp MD PATHOLOGY/CYTOLOGY ORDERABLE S Performing Organization Address City/State/[place] [address] Surgical Pathology Report (11/17/2019 2:30 PM EDT) Component Value Ref Test Analysis Performed At [facility] gist Range Method Time Signature Surgical [id number] ? Location: [facility] Report The signing pathologist has (i) examined the relevant preparation(s) for the MEMORIAL specimen(s) and (ii) rendered or confirmed the diagnosis(es) . [facility] . ? Addendum ADDENDUM DISCUSSION The addendum was created to report the margin status in this specimen. Invasive carcinoma extends broadly to the inked specimen edges. Electronically signed by: ??Carrie Gomez DO Verified: ??11/18/2019 ?Pathologist Performed at: ??[facility] [place] [place], [place], [place] ?Surgic al Pathology DIAGNOSIS CONSULTATION CASE Outside slide(s) labeled [id number], collection date 03/16/19 20. A - Right medial breast 2-3:00 region, skin ?excision: Well differentiated adenocarcinoma infiltrating the de rmis and subcutis (see Discussion). ER, AR, and HER2 studies ([facility] slides reviewed): ER: Positive (>90%, ??strong ) AR: Positive (>90%, ??strong ) HER2 IHC: Negative (score 0) B - Right anterior lateral distal upper arm, skin ?excis ion: Angiolipoma, by report (slides for part B not provided for devora torres). Electronically signed by: ??Carrie Gomez DO Verified: ??11/18/2019 ?Pathologist Performed at: ??-[facility] [place] [place], [place], [place] DISCUSSION The biopsy shows a well diff erentiated adenocarcinoma. Provided immunohistochemical stains show the tumor cells are positive for GATA3, ER, and AR, compatible with a low-grade invasive ductal carcinoma of the breast. The tumor is morphologically identical to the tumor in t he specimen labeled skin of right breast, mastectomy site ([id number]). SPECIMEN(S) SUBMITTED CONSULTATION CASE A - 6 slide(s) labeled [id number], collection date 03/16/2019 . [id number] Report to: [facility] [address] [place] [address] CLINICAL INFORMATION A(a) - Flesh-colored nodule without follicular pore present. A(b) - Soft, movable subcutaneous tumor. . SPECIMEN PROCESSING [facility] ?? pathology slide(s) are reviewed. ??Refer to Diagnosis and Specimen Submitted for specific case information. For the full text of the ?? [facility] ??report(s) please refer to Non- Documentation Pathology in the electronic health record (eD H). Specimen (Source) Anatomical Collection Method Collection Time Re ceived Time Location / / Volume Laterality 11/17/2019 2:30 PM EDT Dustin Camp MD PATHOLOGY/CYTOLOGY ORDERABLE S Performing Organization Address City/State/[place] [address] documented in this encounter Visit Diagnoses Not on filedocumented in this encounter Care Teams Computerized Mill Mill Recorder Relationship Specialty Start Date End Date Filomena Ochoa PA PCP - General Family Medicine 11/01/18 2 [place] [address] documented as of this encounter
--- OUTSIDE RECORDS SUMMARY | 2021-11-29 00:20 | XMS_ITS | Encounter Summary ---
:1970 Author Organization [facility] [place] [address] Care Team Providers Name Role Phone Filomena Ochoa Primary Care Provider Reason for Visit Reason Onset Date Comments Questions 11/01/2018 Encounter Details Date Type Department Care Team Description 11/01/2018 [place] [facility] [place], TANIYA Bales Questions [facility] [place] [address] ORTHOPAEDIC SURGERY [phone] [place] [id number] (Wo rk) Social History Tobacco Use Types Packs/Day Years Used Date Never Assessed Sex Assigned at Date Recorded Not on file documented as of this encounter Miscellaneous Notes Telephone Encounter - Deandra Hyde B - 11/01/2018 4:23 PM EDT Jia called into [facility] to see if she had to get XR done before her appt with Filomena tomorrow for her left wrist injury. I told her that we cannot make her get XR and it is her decision but it would help with Filomena's evaluation and the completeness of her care. She feels that it could be a scaphoid fracture due to the location of her pain. We discussed that with scaphoids it can take 1-2 weeks after injury to be able to see on film but it would help us rule out anything else that my be going on. She opted to wait until after seeing Filomena to get XR. Routing to S. Kuldeep so she is aware. documented in this encounter Plan of Treatment Not on filedocumented as of this encounter Visit Diagnoses Not on filedocumented in this encounter Care Teams Decorative Cutting Machine Tender Relationship Specialty Start Date End Date Filomena Ochoa PA PCP - General Family Medicine 11/01/18 2 [place] [id number] documented as of this encounter
--- OUTSIDE RECORDS SUMMARY | 2021-11-29 00:20 | XMS_ITS | Encounter Summary ---
:1970 Author Organization [facility] [place] [address] Care Team Providers Name Role Phone Filomena Ochoa Primary Care Provider Reason for Referral Diagnostic Test (Routine) - Closed Specialty Diagnoses / Procedures Referred By Contact Refer red To Contact Radiology Diagnoses Elevated troponin Cuco Caballero MD [facility] Rad Mri Procedures MRI Cardiac Morphology Function and Stress wwo Contrast [address] [place] [id number] Referral ID Status Reason Start Date Expiration Date Visits V isits Requested Authorized [id number] Closed Specialty 09/03/2020 03/06/2022 1 1 Service Requested Reason for Visit Diagnostic Test (Routine) - Closed Specialty Diagnoses / Procedures Referred By Contact Refer red To Contact Radiology Diagnoses Elevated troponin Cuco Caballero MD [facility] Rad Mri Procedures MRI Cardiac Morphology Function and Stress wwo Contrast [address] [place] [id number] Referral ID Status Reason Start Date Expiration Date Visits V isits Requested Authorized [id number] Closed Specialty 09/03/2020 03/06/2022 1 1 Service Requested Encounter Details Date Type Department Care Team Description 10/09/2020 Hospital Encounter MRI at [facility] NanciCuco barrientos, Elevated troponin [facility] [address] [place], [place], [address] [place] [address] [phone] Social History Tobacco Use Types Packs/Day Years [...] Sig Dispensed Refills Start Date End Date melatonin 5 mg Tablet Take 10 mg by mouth. 0 ANTHONY'S WORT ORAL Take by mouth. 0 LORAZEPAM ORAL Take by mouth. 0 tamoxifen (Nolvadex) 10 mg Take 10 mg by mouth 2 0 Tablet times daily. albuterol 90 mcg/actuation Inhale 1 puff into 0 1 02/23/2018 HFA Aerosol Inhaler the lungs Every 4 hours as needed. buPROPion (WELLBUTRIN XL) 300 mg every morning. 0 09/10/2018 300 mg Tablet Extended Release 24 hr VYVANSE 40 mg Capsule 0 09/22/2018 traZODone (DESYREL) 100 mg 0 9 Tablet documented as of this encounter Progress Notes Daina Varma RN - 10/09/2020 10:57 AM EDT Regadenoson injected. documented in this encounter Plan of Treatment Not on filedocumented as of this encounter Procedures Procedure Name Priority Date/Time Associated Comments Diagnosis MRI CARDIAC Routine 10/09/2020 11:13 AM Elevated troponin Res ults for this MORPHOLOGY FUNCTION EDT procedur e are in AND STRESS WWO the results CONTRAST section. documented in this encounter Results MRI Cardiac Morphology Function and Stress wwo Contrast (10/09/2020 11:13 AM EDT) Anatomical Region Laterality Modality Chest, Cardiac Magnetic Resonance Specimen (Source) Anatomical Location Collection Method / Collectio n Time Received Time / Laterality Volume Impressions 10/09/2020 1:43 PM EDT 1. ??No evidence of myocardial ischemia on this stress cardiac MRI 2. ??Normal left and right ventricular f unction 3. ??No delayed enhancement to suggest p revious infarct, myocarditis, or infiltrative disease of the left or righ t ventricles. Thank you for letting us participate in the care of this patient. ??If you are a health care provider and have any questi ons regarding this report, please contact the number below. ??For patients who have questions please contact the health healthcare consulting manager that requested your imaging first. ? Electronically signed by: Brody Kemp MD, [facility] ([phone]), at 10/09/2020 1:43 PM Narrative 10/09/2020 1:43 PM EDT EXAMINATION: MRI CARDIAC MORPHOLOGY FUNCTION AND STRESS WWO CONTRAST CLINICAL HISTORY: Palpitations; Elevated troponin; Holter monitor showed rare PVC's. COMPARISON: None TECHNIQUE: Cardiac MRI with and without IV contrast IV CONTRAST: 26 mL Dotarem Quantification: ?? LEFT VENTRICLE: End-diastolic volume 149 mL End-systolic volume 59 mL Stroke volume 90 mL Ejection fraction 60% End-diastolic volume index 85 mL/sq m 3 chamber end-diastolic width 4.1 cm 3 chamber septal thickness 1.1 cm 3 chamber inferolateral wall thickness 0 .7 cm RIGHT VENTRICLE: End-diastolic volume 186 mL End-systolic volume 88 mL Stroke volume 98 mL Ejection fraction 53% End-diastolic volume index 106 mL/sq m Chambers: At rest, the left ventricle is normal in size and function. Quantitated left ventricular ejection fraction is 60%. Th ere are no regional wall motion abnormalities present. Wall thickness is normal. The right ventricle is dilated dilated with normal function. Quantitate d right ventricular ejection fraction is 53%. There are no right ventricular gregg onal wall motion abnormalities present. The left atrium is normal in size. The r ight atrium is normal in size. Interventricular and interatrial septum are intact. The aortic root is normal in size. There is a trivial pericardial eff usion. Valves: Mitral valve: Normal in structure and fu nction with trace regurgitation and no stenosis present. Aortic valve: Trileaflet. Normal in stru cture and function with no regurgitation. There is no aortic valve stenosis present. Tricuspid valve: Normal in structure and function with trace tricuspid regurgitation and no stenosis present. Pulmonic valve: Not well visualized. Nor mal in structure and function with trace pulmonic insufficiency Stress perfusion: Stress perfusion was performed in short axis planes. There were no stress perfusion defects to suggest previous in farct or resting myocardial ischemia. Resting perfusion: Resting perfusion was performed in short axis planes. There were no resting perfusion defects to suggest previous in farct or resting myocardial ischemia. TI Cargo Vessel Stewardess: TI Cargo Vessel Stewardess demonstrates normal nulling pat terns. Delayed enhancement: Delayed enhancement was performed in bot h long and short axis planes. There was no delayed enhancement to suggest previo us infarct, myocarditis, or infiltrative disease of the left or right ventricles. Extracardiac: Extracardiac imaging performed for the p urposes of cardiac planning only. The aorta is normal in course and caliber. T here are no signficant pleural effusions present. Procedure Note Brody Kemp MD - 10/09/2020Formatt ing of this note might be different from the original. EXAMINATION: MRI CARDIAC MORPHOLOGY FUNC TION AND STRESS WWO CONTRAST CLINICAL HISTORY: Palpitations; Elevated troponin; Holter monitor showed rare PVC's. COMPARISON: None TECHNIQUE: Cardiac MRI with and without IV contrast IV CONTRAST: 26 mL Dotarem Quantification: LEFT VENTRICLE: End-diastolic volume 149 mL End-systolic volume 59 mL Stroke volume 90 mL Ejection fraction 60% End-diastolic volume index 85 mL/sq m 3 chamber end-diastolic width 4.1 cm 3 chamber septal thickness 1.1 cm 3 chamber inferolateral wall thickness 0 .7 cm RIGHT VENTRICLE: End-diastolic volume 186 mL End-systolic volume 88 mL Stroke volume 98 mL Ejection fraction 53% End-diastolic volume index 106 mL/sq m Chambers: At rest, the left ventricle is normal in size and function. Quantitated left ventricular ejection fraction is 60%. Th ere are no regional wall motion abnormalities present. Wall thickness is normal. The right ventricle is dilated dilated with normal function. Quantitate d right ventricular ejection fraction is 53%. There are no right ventricular gregg onal wall motion abnormalities present. The left atrium is normal in size. The r ight atrium is normal in size. Interventricular and interatrial septum are intact. The aortic root is normal in size. There is a trivial pericardial eff usion. Valves: Mitral valve: Normal in structure and fu nction with trace regurgitation and no stenosis present. Aortic valve: Trileaflet. Normal in stru cture and function with no regurgitation. There is no aortic valve stenosis present. Tricuspid valve: Normal in structure and function with trace tricuspid regurgitation and no stenosis present. Pulmonic valve: Not well visualized. Nor mal in structure and function with trace pulmonic insufficiency Stress perfusion: Stress perfusion was performed in short axis planes. There were no stress perfusion defects to suggest previous in farct or resting myocardial ischemia. Resting perfusion: Resting perfusion was performed in short axis planes. There were no resting perfusion defects to suggest previous in farct or resting myocardial ischemia. TI Cargo Vessel Stewardess: TI Cargo Vessel Stewardess demonstrates normal nulling pat terns. Delayed enhancement: Delayed enhancement was performed in bot h long and short axis planes. There was no delayed enhancement to suggest previo us infarct, myocarditis, or infiltrative disease of the left or right ventricles. Extracardiac: Extracardiac imaging performed for the p urposes of cardiac planning only. The aorta is normal in course and caliber. T here are no signficant pleural effusions present. IMPRESSION 1. No evidence of myocardial ischemia on this stress cardiac MRI 2. Normal left and right ventricular fun ction 3. No delayed enhancement to suggest pre vious infarct, myocarditis, or infiltrative disease of the left or righ t ventricles. Thank you for letting us participate in the care of this patient. If you are a health care provider and have any questi ons regarding this report, please contact the number below. For patients w ho have questions please contact the health healthcare consulting manager that requested your imaging first. Electronically signed by: Brody Kemp MD, [facility] ([phone]), at 10/09/2020 1:43 PM Cuco Caballero MD IMG MRI ORDERABLES documented in this encounter Visit Diagnoses Diagnosis Elevated troponin Other abnormal blood chemistry Elevated troponin Other abnormal blood chemistry documented in this encounter Administered Medications Inactive Administered Medications - up to 3 most recent administrations Medication Order MAR Action Action Date Dose Rate Site regadenoson (Lexiscan) injection Given 10/09/2020 10:40 AM EDT 0 .4 mg 0.4 mg 0.4 mg, Intravenous, ONCE, 1 dose, On Thu10/09/20 at 1000, Radiology Contrast, Routine documented in this encounter Care Teams Link Trainer Maintenance Man Relationship Specialty Start Date End Date Filomena Ochoa PA PCP - General Family Medicine 11/01/18 2 [place] [phone] documented as of this encounter
--- OUTSIDE RECORDS SUMMARY | 2021-11-29 00:20 | XMS_ITS | Encounter Summary ---
:1970 Author Organization [facility] [place] [address] Care Team Providers Name Role Phone Filomena Ochoa Primary Care Provider Encounter Details Date Type Department Care Team Description 11/16/2019 Telephone [facility] [address] Social History Tobacco Use Types Packs/Day Years Used Date Never Smoker Smokeless Tobacco: Never Used Alcohol Use Standard Drinks/Week Comments Not Currently 0 (1 standard drink = 0.6 oz pure alcoho l) [facility] Alcohol Habits Answer Date Recorded How [...] this encounter Miscellaneous Notes Telephone Encounter - Margarita Cannon - 11/16/2019 8:53 AM EDT Patient Info: Jia Dow 1970 Attn: Pathology Department From: [facility] [phone] [x]Urgent [] For Review [] Please Reply []Please Recycle Comments: Please overnight all Pathology slides to include Core Biopsy's and Surgical Path. Mail to:Department of Pathology, [facility], Attn: Carrie Gomez MD. [place] [id number] Fed-Ex # [id number] If questions please call [phone] Dustin Camp. We are looking For all, but specifically for path slides and reports dated 03/16/2019 and 04/08/2019 Notice of Confidentiality: The documents accompanying this FAX transmission cover contain information from [facility] that is confidential and privileged. The information is intended for the use of the individual or entity named on this transmittal sheet. If you are not the intended recipient, be aware that any disclosure, copying, distribution or use of the contents is prohibited. If you have received the FAX in error, please notify us by telephone (collect) immediately to permit us to arrange for theretrieval of the documents at no cost to you documented in this encounter Plan of Treatment Not on filedocumented as of this encounter Visit Diagnoses Not on filedocumented in this encounter Care Teams Qlikview Developer Relationship Specialty Start Date End Date Filomena Ochoa PA PCP - General Family Medicine 11/01/18 2 [place] [phone] documented as of this encounter
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
--- OUTSIDE RECORDS SUMMARY | 2021-11-29 00:20 | XMS_ITS | Encounter Summary ---
:1970 [place] [address] Care Team Providers Name Role Phone Filomena Ochoa Primary Care Provider Encounter Details Date Type Department Care Team Description 04/06/2019 Ancillary Procedure [facility] [place] [address] [place] [address] HEMATOLOGY/ONCOLOGY [phone] [address] [place] [id number] (Wo rk) Social History Tobacco Use Types [...] on file documented as of this encounter Plan of Treatment Not on filedocumented as of this encounter Procedures Procedure Name Priority Date/Time Associated Diagnosis Comme nts FILM LIBRARY Routine 04/06/2019 12:00 AM Results for this STORAGE ONLY EST procedure are i n NUCLEAR MEDICINE the results section. documented in this encounter Results Film Library- Storage Only nuclear medicine (04/06/2019 12:00 AM EST) Specimen (Source) Anatomical Location Collection Method / Collectio n Time Received Time / Laterality Volume Narrative RAD - 11/09/2019 4:47 PM EDT This exam is auto-finalizing. It's purpo se is for storage only. Dustin Camp MD IMG FILM LIBRARY ORDERABLES Performing Organization Address City/State/ZIP Code Phon e Number [place], [place] documented in this encounter Visit Diagnoses Not on filedocumented in this encounter Care Teams Exposure Machine Operator Relationship Specialty Start Date End Date Filomena Ochoa PA PCP - General Family Medicine 11/01/18 [address] [place] [address] documented as of this encounter
--- OUTSIDE RECORDS SUMMARY | 2021-11-29 00:20 | XMS_ITS | Encounter Summary ---
:1970 Author Organization [facility] [place] [address] Care Team Providers Name Role Phone Filomena Ochoa Primary Care Provider Encounter Details Date Type Department Care Team Description 03/11/2020 Notes Only Psychiatry and Behavioral [place] [address] [place] [phone] Social History Tobacco Use Types Packs/Day Years [...] on file documented as of this encounter Progress Notes Janeth Herrmann APRN - 03/11/2020 9:45 PM EST Patient contacted this mortgage loan underwriter thru apt scheduling and asked to cancel her apt due to making medication changes with other providers. She will contact this mortgage loan underwriter with further questions. Janeth Herrmann, Psychiatric Nurse Practitioner documented in this encounter Plan of Treatment Not on filedocumented as of this encounter Visit Diagnoses Not on filedocumented in this encounter Care Teams Stabilizing Machine Operator Relationship Specialty Start Date End Date Filomena Ochoa PA PCP - General Family Medicine 11/01/18 [address] [place] [address] documented as of this encounter
--- OUTSIDE RECORDS SUMMARY | 2021-11-29 00:20 | XMS_ITS | Encounter Summary ---
:1970 Author Organization [facility] [place] [address] Care Team Providers Name Role Phone Filomena Ochoa Primary Care Provider Reason for Visit Reason Comments Radiation Consult Consultation (Routine) - Closed Specialty Diagnoses / Procedures Referred By Contact Refer red To Contact Radiation Oncology Diagnoses Breast cancer BREAST CANCER Asa Cmaeron MD Fariss, Anna K, MD Procedures TREATMENT OPTIONS [address] [place], Level 2 RADIATION ONCOLOGY [place], [place] [id number] Referral ID Status Reason Start Date Expiration Date Visits Requ ested Visits Authorized [id number] Closed 05/06/2019 05/05/2020 1 1 Encounter Details Date Type Department Care Team Description 06/06/2019 TH Visit Radiation Oncology Livia Cabral Hormon e receptor (TeleHealth) at [facility] MD positive malignant [address] [facility] [place], [place] CENTER breast [phone] RADIATION [phone] ONCOLOGY [place], [place] [address] Social History Tobacco Use Types Packs/Day Years [...] documented as of this encounter Progress Notes Livia Cabral MD - 06/06/2019 9:00 AM EDT Images from the original note were not included. Phone consult during Covid-19 pandemic. CC: Referred by Dr. Cameron for eval for xrt for breast ca HPI: Jia is a 49 y/o f July 2011- pt presented with a palpable right breast mass in the UIQ at 3:00 07/30/11- s/p right breast u/s core bx- 3:00 (3.5 cm FN) palpable mass ([facility] path review) IDC, grade 1, 0.9 cm, LVI present DCIS-cribriform, intermediate grade with necrosis, no calcifications ER>95% / AZ>95% 08/14/11- s/p Bilateral simple mastectomy with right SLNB and bilateral tissue expanders: ([facility] path review) Left breast path: benign tissue Right breast path: IDC, grade 1, 1.2 cm in UIQ with 3 additional foci measuring 0.18 cm, <0.1cm and <0.1cm, all located in UIQ associated with DCIS and adjacent to main mass. LVI is present adjacent to larger focus of invasion. DCIS- cribriform, intermediate grade with necrosis and without microcalcifications, is associated with invasive cancer in UIQ in 2/15 blocks, EIC negative. Deep margin is negative for carcinoma by >0.3cm Skin and nipple negative 4 sentinel nodes negative HER2-2+, FISH negative Oncotype DX returned at 20 She did not receive adjuvant radiation Endocrine therapy with tamoxifen which she took for 4 years finishing in 2017. 2011- Genetic testing with BRCA 1 & 2 negative 12/31/11- [facility]- s/p bilateral tissue shot grinder operator removal with placement of bilateral permanent implants with Dr. Jozef Castellanos. Over the past year a nodule was noted in the right chest wall in UIQ just above the implant and it was believed to be a cyst (August 2017) and was observed without much change until recently when it slightly increased in size. She underwent an excision of this nodule by dermatology. 03/16/19- [place]- s/p right medial breast excision of nodule- 2:00-3:00 ([facility] path review) IDC, grade 1, 0.4 cm, no LVI, no in situ ca Cancer involving dermis, no breast tissue seen in this limited specimen. No epidermal involvement or skin ulceration seen. Carcinoma is present at inked tissue edge. This is c/w local recurrence of known breast cancer ER-95%/ AZ-95% / HER2-0 04/06/19- [facility]- Staging CT???s and Bone scan: CCT- Chest wall with bilateral implants. No enlarged SCL, axillary, mediastinal or hilar nodes. Abd/pelvis CT- no mets Sclerotic focus in right ilium which is indeterminate, likely a bone island. Bone scan- no definite uptake related to sclerotic focus in right ilium. 04/08/19- [facility]- s/p Re-excision of dermal recurrence right mastectomy site: (surgeon: Dr. Asa Cameron) (spec size: 2 x 1 x 0.5 cm) IDC with tubular features, 4 mm, grade 1, within dermis, No DCIS, no LVI, no perineural invasion,closest margin is 1mm from inferior margin. Prior bx site changes are seen. ([facility] path review) Invasive ductal carcinoma grade 1 at least 0.4 cm without in situ carcinoma seen. No lymphovascular invasion is seen. No dermal lymphovascular invasion is seen. Carcinoma involves the superficial and deep dermis and subcutis with no definite epidermal involvement and no skin ulcerations seen. No definite normal breast tissue seen. Invasive carcinoma is present 0.1 cm from the superior and 0.1 cm fromthe black inked inferior margins. 04/14/19- Consulted with [place] radiation oncologist, Dr. Cristina Avitia, who recommended radiation (simulation scheduled). Pt is reluctant to do radiation and reluctant to take ET. 05/02/19- Follow up with Dr. Tinajero, who recommended seeing radiation oncology at [facility] and recommended re-introduction of ET. 05/12/19 consult w/Dr. Reyes, rad onc [facility], w/rec for xrt to R chest wall & draining lymphatics, however review of CT images showed breast implants compressing chest wall. If DIBH did not improve geometry well enough with respect to volume of lung irradiated, Dr. Amy de la rosa'd removal of implants& then xrt. Due to concern about timely removal of implants during Covid-19 pandemic, option of partial chest wall xrt just to site of chest wall recurrence with implants in place discussed. 05/16/19 fu w/Dr. Tinajero, who rx'd gomes & Jia is taking 10 mg gomes daily. 05/27/[address] Reyes to Jia, w/discussion about communication from local [place] plastic surgeon who thinks rebound of compressed chest wall after removal of implants likely will not be immediate, will likely take months/years. Dr. Amy de la rosa'malena removal of L breast implant to improve geometry of lung irradiated, followed by xrt to full R chest wall. Subjective: Healed ok. No pain. No swelling hand/arm. ROM arms around shoulders fine. Energy level fine; exercises a lot. Past Medical History: Diagnosis Date ??? ADHD ??? Asthma ??? Breast cancer, right 2012 ??? Depression No lupus/scleroderma. No prior xrt. Past Surgical History: Procedure Laterality Date ??? HAND TENDON SURGERY 1989' ??? MASTECTOMY Bilateral 2011 with implant reconstruction Your Medications Accurate as of June 06, 2019 11:59 PM. If you have any questions, ask your nurse or doctor. Continued medications, unchanged Dose Details albuterol 90 mcg/actuation Hfaa Inhale 1 puff into the lungs Every 4 hours as needed. 1 puff Refills: 0 buPROPion XL 300 mg Tablet Extended Release 24 hr Commonly known as: Wellbutrin XL TAKE 1 TABLET DAILY Refills: 0 LORAZEPAM ORAL Take by mouth. Refills: 0 MELATONIN (WITH B6) ORAL Take by mouth. Refills: 0 ANTHONY'S WORT ORAL Take by mouth. Refills: 0 tamoxifen 10 mg Tab Commonly known as: Nolvadex Take 10 mg by mouth 2 times daily. 10 mg Refills: 0 traZODone 100 mg Tab Commonly known as: Desyrel Refills: 0 Vyvanse 40 mg Cap Generic drug: lisdexamfetamine Refills: 0 P&SHx: Never smoker A: Recurrent breast ca in reconstructed R breast/chest wall, s/p lumpectomy followed by reexcision, IDC, gr 1, ER+AZ+, Her2 neg. Her original breast ca was IDC, gr 1, ER+AZ+, Her2 neg, pmT1b pN0, +LVI,tx'd in 2011 w/B simple mastectomy, R SNB, shot grinder operator placement B, followed by recon w/B implants; on gomes until 2017. Decision Making/Plan: Discussion about standard of care treatment, which would be xrt to R reconstructed breast/chest wall & draining lymphatics. Xrt would be given in 33 fxs. We started to discuss the possible side effects of xrt. She said she had previously heard about the side effects & she is concerned about xrt to her entire R chest wall due to the amount of lung which would be irradiated. 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 I suggested that CTsimulation to assess amount of lung which would be irradiated & explained that she could be evaluated for use of deep inspiration breath hold (DIBH) to decrease amount of lung irradiated. We also discussed possible removal of L sided implant to improve geometry of lung irradiated from full R chest wall xrt, however, she is not interested in having L sided implant removed. She informed me that she prefers to undergo xrt only to site of excised recurrence, not to entire chest wall. I explained that xrt localized only to site of excised recurrence would be considered unconventional& would place her @ higher risk of another recurrence. She states she is willing to take that risk. She was very gracious throughout the encounter & ultimately informed me that because she is familiar w/[facility], she will likely contact Dr. Avitia @ [facility] to proceed w/xrt @ that locale. Patient verbally consents to this telephone visit and understands that this visit may be billed, similar to a clinic office visit. I provided care to the patient today via telephone call. The total time associated with this visit was 60 minutes, including pre phone call medical chart review, phone call & post phone call medical charting. documented in this encounter Plan of Treatment Not on filedocumented as of this encounter Visit Diagnoses Diagnosis Hormone receptor positive malignant neop lasm of right breast documented in this encounter Care Teams Tire Sorter Relationship Specialty Start Date End Date Filomena Ochoa PA PCP - General Family Medicine 11/01/18 [address] [place] [address] documented as of this encounter
--- OUTSIDE RECORDS SUMMARY | 2021-11-29 00:20 | XMS_ITS | Clinical Summary ---
:1970 Author Organization [facility] Address [place] [id number] Care Team Providers Name Role Phone Filomena Ochoa Primary Care Provider Allergies No known active allergies Medications Medication Sig Dispensed Refills Start Date End Date Status buPROPion (WELLBUTRIN 300 mg every 0 09/10/2018 Active XL) 300 mg Tablet morning. Extended Release 24 hr VYVANSE 40 mg Capsule 0 09/22/2018 Active traZODone (DESYREL) 0 09/10/2018 Active 100 mg Tablet albuterol 90 Inhale 1 puff into 0 12/24/2018 Active mcg/actuation HFA the lungs Every 4 Aerosol Inhaler hours as needed. ANTHONY'S WORT ORAL Take by mouth. 0 Active LORAZEPAM ORAL Take by mouth. 0 Active tamoxifen (Nolvadex) Take 10 mg by 0 Active 10 mg Tablet mouth 2 times daily. melatonin 5 mg Tablet Take 10 mg by 0 Active mouth. Active Problems Problem Noted Date Depression 06/02/2019 ADHD (attention deficit hyperactivity disorder), combi susie type 06/02/2019 Radon exposure 06/02/2019 Asthma 06/02/2019 Malignant neoplasm of overlapping sites of right breas t in female, 08/14/2011 estrogen receptor positive Overview: Ms. Dow presented in 2011 with a palp able mass in the right breast. A core biopsy showed a low grade invasive ductal carcinoma with lymphovascular invasion, estrogen and progesterone receptor positiv e. On August 14, 2011 she underwent bilate ral mastectomies, a right sentinel node biopsy, and bilateral immediate implant reconstructions. There was a multifocal invasive ductal carcinoma with foci measur ing 12, 1.8, and less than 1 mm. Estroge n receptors were positive in 95% of cells, progesterone receptors were positive in 95% of cells, and Her-2 was 2+ by IHC but unamplified by FISH. Four sentinel no amos were negative. Her Oncotype Recurren ce Score was 20. She received tamoxifen from August 2011 until February 2016 which was complicated by de[pression, a decline in libido, hot flashes, and a vaginal di scharge. She tried toremifene briefly in 2016 and did not better. She notes a skin nodule in proximity to the mastectomy scar in mid-2017, and it was excised on March 16, 2019. There was a focus of a well-differentiated (SBR=5) invasive silvino fanny carcinoma excised with positive margins, strongly estrogen receptor positive in 95% of cells, strongly progesterone receptor positive in 95% of cells, and Her -2 0 by IHC. There was a re-excision on April 08 that found a low grade (SBR=4) invasive ductal carcinoma with tubular features within the dermis measuring 4 mm, excised with a 1 mm inferior margin. She resumed tamoxifen at 10 mg daily on May 16, 2019, but she stopped it again on October 10. She received radiotherapy from June 26 through July 14, 40.05 Gy in 15 fractions to a field limited to the excision scar. Immunizations Name Administration Dates Next Due Moderna Covid-19 (Field Sales Manager 100mcg) Vaccine 01/02/2021 Social History Tobacco Use Types Packs/Day Years Used Date Never Smoker Smokeless Tobacco: Never Used Alcohol Use Standard Drinks/Week Comments Not Currently 0 (1 standard drink = 0.6 oz pure alcoho l) [facility] Alcohol Habits Answer Date Recorded How often do you have a drink containing alcohol? Not asked How many drinks containing alcohol do you have on a typical Not asked day when you are drinking? How often do you have six or more drinks on one occasion? No t asked Comment: [facility] 11/02/2018 Sex Assigned at Date Recorded Not on file Last Filed Vital Signs Vital Sign Reading Time Taken Comments Blood Pressure 110/57 10/09/2020 11:00 AM EDT Pulse 51 10/09/2020 11:00 AM EDT Temperature 35.9 ??C (96.7 ??F) 11/29/2019 9:09 AM EDT Respiratory Rate 18 11/29/2019 9:09 AM EDT Oxygen Saturation 100% 10/09/2020 11:00 AM EDT Inhaled Oxygen Concentration - - Weight 65.2 kg (143 lb 12.8 oz) 11/29/2019 9:09 AM EDT Height 168.4 cm (5' 6.3) 11/29/2019 9:09 AM EDT Body Mass Index 23 11/29/2019 9:09 AM EDT Plan of Treatment Health Maintenance Due Date Last Done Comments Pneumococcal Vaccine: At-Risk 5-64yrs 1978 (1 - PCV) HIV screen 1990 Hepatitis C Screening 1990 Tdap adult 05/21/1991 Tetanus vaccine 05/21/1991 HPV test 2002 PAP Smear 2002 Breast Cancer Share Decision Needed 2012 Colonoscopy 2017 Influenza (Flu) vaccine (1 - 10/24/2021 Influenza standard series) Covid-19 Vaccine Completed 01/02/2021, 05/24/2020, 04/26/2020 Insurance Payer Benefit Plan / Subscriber ID Effective Dates Phone Addre ss Type Group [facility] [id number] 2018-Prese [phone] [address] [facility] O[place] PPO nt [address] [place], [place] [address] [facility] [id number] 2019-Prese [phone] [address] [facility] [employer]ATIONAL OOS nt [address] [place], [place] [address] Care Teams Radiology Equipment Servicer Relationship Specialty Start Date End Date Filomena Ochoa, PA PCP - General Family Medicine 11/01/18 [address] [place] [address]
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
--- OUTSIDE RECORDS SUMMARY | 2021-11-29 00:20 | XMS_ITS | Encounter Summary ---
:1970 Author Organization [facility] [place] [address] Care Team Providers Name Role Phone Filomena Ochoa Primary Care Provider Encounter Details Date Type Department Care Team Description 11/17/2019 External Results Medical Records Provider, [place] [address] Social History Tobacco Use Types Packs/Day Years Used Date Never Smoker Smokeless Tobacco: Never Used Alcohol Use Standard Drinks/Week Comments Not Currently 0 (1 standard drink = 0.6 oz pure alcoho l) [facility] Alcohol Habits Answer Date Recorded How often [...] Diagnosis Comme nts SURGICAL PATHOLOGY Routine 11/17/2019 Results f or this SCAN procedure are i n the results section . documented in this encounter Results Scan Doc: Surgical Pathology (11/17/2019) Narrative This result has an attachment that is no t available. Dustin Camp MD MEDIA MGR SCAN EXT ORDR/RSLT documented in this encounter Visit Diagnoses Not on filedocumented in this encounter Care Teams Public Information Specialist Relationship Specialty Start Date End Date Filomena Ochoa PA PCP - General Family Medicine 11/01/[address] [place] [address] [place] [phone] documented as of this encounter
--- OUTSIDE RECORDS SUMMARY | 2021-11-29 00:20 | XMS_ITS | Encounter Summary ---
:1970 Author Organization [facility] [place] [address] Care Team Providers Name Role Phone Filomena Ochoa Primary Care Provider Reason for Visit Diagnostic Test (Routine) - Closed Specialty Diagnoses / Procedures Referred By Contact Refer red To Contact Radiology Diagnoses Elevated troponin Cuco Caballero MD [facility] Rad Mri Procedures MRI Cardiac Morphology Function and Stress wwo Contrast [address] [place] [id number] Referral ID Status Reason Start Date Expiration Date Visits V isits Requested Authorized [id number] Closed Specialty 09/03/2020 03/06/2022 1 1 Service Requested Encounter Details Date Type Department Care Team Description 10/09/2020 Hospital Encounter MRI at [facility] Cuco Caballero, Elevated troponin [facility] [address] [place] [address] [place] [address] [phone] Social History Tobacco Use Types Packs/Day Years [...] AND STRESS WWO the results CONTRAST section. EKG 12-LEAD Routine 10/09/2020 9:16 AM Elevated troponin Resu lts for this EDT procedure are i n the results section. documented in this encounter Results EKG 12 Lead (10/09/2020 9:16 AM EDT) Component Value Ref Range Test Analysis Performed Pathologis t Method Time At Signature Ventricular rate 57 BPM MUSE SYSTEM Atrial Rate 57 BPM MUSE SYSTEM P-R Interval 154 ms MUSE SYSTEM QRS Duration 110 ms MUSE SYSTEM Q-T Interval 436 ms MUSE SYSTEM QTC Calculated 424 ms MUSE SYSTEM (Bezet) Calculated P [place] -24 degrees MUSE SYSTEM Calculated R [place] 71 degrees MUSE SYSTEM Calculated T [place] 22 degrees MUSE SYSTEM INTERPRETATION Sinus bradycardia MUSE SY STEM Minimal voltage criteria for LVH, may be normal variant ( So kolow-Vazquez ) Nonspecific T wave abnormality Abnormal ECG No previous ECGs available I personally reviewed the tracing and edited the fellows int erpretation Confirmed by fellow Guilherme Vaughn ([id number]) on 10/09/2020 12 :13:52 PM Confirmed by MD Junior, Delonte Morocho ([id number]) on 10/09/2020 3:1 8:00 PM Specimen Anatomical Collection Method Collection Time Receive d Time (Source) Location / / Volume Laterality 10/09/2020 9:16 AM 3:18 EDT PM EDT Brody Kemp MD ECG ORDERABLES Performing Organization Address City/State/ZIP Code Phon e Number Loop SYSTEM documented in this encounter Visit Diagnoses Diagnosis Elevated troponin Other abnormal blood chemistry documented in this encounter Administered Medications Inactive Administered Medications - up to 3 most recent administrations Medication Order MAR Action Action Date Dose Rate Site gadoterate meglumine (Dotarem) Given 10/09/2020 11:15 AM EDT 26 mLs (0.5 mMol/mL) injection solution 0-100 mL 0-100 mL, Intravenous, ONCE PRN, 1 dose, Starting on Thu10/09/20 at 1114, Until Thu10/09/20 at 1115, Per Protocol, Radiology Contrast, Routine documented in this encounter Care Teams Lamination Inspector Relationship Specialty Start Date End Date Filomena Ochoa PA PCP - General Family Medicine 11/01/18 [address] [place] [phone] documented as of this encounter
--- OUTSIDE RECORDS SUMMARY | 2021-11-29 00:20 | XMS_ITS | Encounter Summary ---
:1970 Author Organization [facility] [place] [address] Care Team Providers Name Role Phone iFlomena Ochoa Primary Care Provider Encounter Details Date Type Department Care Team Description 11/02/2018 Orders Only Orthopaedics at [facility] KuldeepFilomena, Left wrist injury, [facility] [place] [address] ORTHOPAEDIC SURGERY [place] [address] Social History Tobacco Use Types Packs/Day Years [...] Not on filedocumented as of this encounter Results XR Wrist 3 Views Left (11/02/2018 11:10 [...] Diagnoses Diagnosis Left wrist injury, initial encounter Left wrist injury, initial encounter documented in this encounter Care Teams Ranch Manager Relationship Specialty Start Date End Date Filomena Ochoa PA PCP - General Family Medicine 11/01/18 [address] [place] [address] documented as of this encounter
--- OUTSIDE RECORDS SUMMARY | 2021-11-29 00:20 | XMS_ITS | Encounter Summary ---
:1970 Author Organization [place] [address] Care Team Providers Name Role Phone Filomena Ochoa Primary Care Provider Encounter Details Date Type Department Care Team Description 11/16/2019 Telephone Hematology [place] [address] Social History Tobacco Use Types Packs/Day Years Used Date Never Smoker Smokeless Tobacco: Never Used Alcohol Use Standard Drinks/Week Comments Not Currently 0 (1 standard drink = 0.6 oz pure alcoho l) [facility] Alcohol Habits Answer Date Recorded How [...] Telephone Encounter - Margarita Cannon - 11/16/2019 10:17 AM EDT Patient Info: Jia Dow 1970 Case # [id number] 03/16/2019 Attn: Pathology Department ( [facility]) From: [facility] [phone] [x]Urgent [] For Review [] Please Reply []Please Recycle Comments: Please overnight all Pathology slides to include Core Biopsy's and Surgical Path. Mail to:Department of Pathology, [facility], Attn: [place] [address] Fed-Ex # [id number] If questions please call [phone] Notice of Confidentiality: The documents accompanying this FAX transmission cover contain information from [facility] that is confidential and privileged. The [...] on filedocumented in this encounter Care Teams Complaint Adjuster Relationship Specialty Start Date End Date Filomena Ochoa PA PCP - General Family Medicine 11/01/18 [address] [place] [phone] documented as of this encounter
--- OUTSIDE RECORDS SUMMARY | 2021-11-29 00:20 | XMS_ITS | Encounter Summary ---
:1970 Author Organization [facility] [place] [address] Care Team Providers Name Role Phone Filomena Ochoa Primary Care Provider Encounter Details Date Type Department Care Team Description 12/06/2019 TH Visit Hematology and Dustin Camp Malignan t neoplasm of (TeleHealth) Oncology at [facility] MD overlapping sites of One [facility] young ast in [facility] [address] freeman, estrogen [place], [place] HEMATOLOGY/ONCOLO receptor p ositive [address] [place] DEPT. [phone] [place], [place] [address] Social History Tobacco Use Types [...] documented as of this encounter Progress Notes Dustin Camp MD - 12/06/2019 4:00 PM EDT Heme-Onc Staff Subjective: I spoke with Jia Dow by phone at her request today to followup with her with questions about my consultation on November 28. Briefly, she is a 49 year old woman with an isolated dermal recurrence in her chest wall, which presented about six years after primary therapy with a mastectomy and four and one half years of tamoxifen. The original tumor was a multifocal invasive ductal carcinoma, strongly ER/DE positive and Her-2 negative, with a Recurrence Score of 20. She underwent resection in March 2019 of a 4 mm low grade invasive ductal carcinoma within the dermis, again strongly estrogen and progesterone receptor positive and Her-2 negative. She received a limited field of chest wall radiotherapy, and she took tamoxifen at 10 mg daily from April through September 2019, but she tolerated it poorly and she stopped it. I was concerned that a chest wall recurrence carries a worrisome prognosis, and although the original tumor had a favorable prognosis and the recurrence was small, localized, low grade, and strongly ER/DE positive, I think she still had somewhere between a 20-50% risk of breast cancer mortality over the next five years. I therefore think its important for her to receive additional endocrine therapy, and as she had significant neurocognitive toxicity from tamoxifen, I suggested treatment with an alternative such as goserelin. Jia has concerns about bone health and about the possible sexual side effects of goserelin. I had asked her to speak with another patient of [facility] who has received goserelin, and I do not know if they have spoken specifically about goserelin. I told her that in my experience, goserelin or ovarian ablation generally goes well in tamoxifen intolerant premenopausal women. The advantage of starting with the monthly dose of goserelin is that if she is intolerant of it, the effects should wear off within three months. If she is willing to stick with it, I proposed that the efficacy of two years of goserelin would be equivalent to that of five years of tamoxifen based on the [facility] trial. Jia asked me about the Dee trial, published in BCRT 169(9) 570-504, 2018. In her reading of thetrial, there was a small number of patients with isolated chest wall recurrence after mastectomy fora T1-2N0 breast cancer, and These patients had a very favorable prognosis. The article cites a 97% five year survival, but that number applies to the total population of patients entered into the trial. The five year overall survival of the patients who suffered the isolated chest wall recurrence was 55%, which is in line with the estimates that I gave her last week. Decision Making/Plan: Jia is scheduled to meet with Dr. Tinajero next week at [facility], to ascertain whether he agrees with her prognosis that I have cited. If he does, she may be willing to try the goserelin. I am scheduled to followup with her here on December 22, and I have scheduled her first dose of goserelin forth day. She will let me know if she needs more time for a phone discussion prior to December 22. Patient verbally consents to this telephone visit and understands that this visit may be billed, similar to a clinic office visit. I provided care to the patient today via telephone call. The total time associated with this visit was 34 minutes. Dustin Camp MD shrink pit operator in Hematology-Oncology documented in this encounter Plan of Treatment Not on filedocumented as of this encounter Visit Diagnoses Diagnosis Malignant neoplasm of overlapping sites of right breast in female, estrogen receptor positive documented in this encounter Care Teams Yard Jacker Relationship Specialty Start Date End Date Filomena Ochoa PA PCP - General Family Medicine 11/01/18 [address] [place] [address] documented as of this encounter
--- OUTSIDE RECORDS SUMMARY | 2021-11-29 00:20 | XMS_ITS | Encounter Summary ---
:1970 Author Organization [place] [address] Care Team Providers Name Role Phone Filomena Ochoa Primary Care Provider Encounter Details Date Type Department Care Team Description 12/10/2019 Orders Only Hematology and Oncology at Dustin Carrasco MD [facility] [place] HEMATOLOGY/[place] [address] DEPT. [phone] [place] [id number] (Wo rk) Social History Tobacco Use Types [...] on filedocumented in this encounter Care Teams Shop Tech Relationship Specialty Start Date End Date Filomena Ochoa PA PCP - General Family Medicine 11/01/18 [address] [place] [address] documented as of this encounter
--- OUTSIDE RECORDS SUMMARY | 2021-11-29 00:20 | XMS_ITS | Encounter Summary ---
:1970 Author Organization [facility] [place] [address] Care Team Providers Name Role Phone Filomena Ochoa Primary Care Provider Encounter Details Date Type Department Care Team Description 11/17/2019 External Results Medical Records Provider, [place] [address] Social History Tobacco Use Types Packs/Day Years Used Date Never Smoker Smokeless Tobacco: Never Used Alcohol Use Standard Drinks/Week Comments Not Currently 0 (1 standard drink = 0.6 oz pure alcoho l) [facility] Alcohol Habits Answer Date Recorded How often [...] on filedocumented in this encounter Care Teams Soil Conservation Teacher Relationship Specialty Start Date End Date Filomena Ochoa PA PCP - General Family Medicine 11/01/[address] [place] [address] [place] [phone] documented as of this encounter
--- OUTSIDE RECORDS SUMMARY | 2021-11-29 00:20 | XMS_ITS | Encounter Summary ---
:1970 Author Organization [facility] [place] [address] Care Team Providers Name Role Phone Filomena Ochoa Primary Care Provider Encounter Details Date Type Department Care Team Description 12/23/2019 TH Visit Hematology and Dustin Camp Malignan t neoplasm of (TeleHealth) Oncology at [facility] MD overlapping sites of [facility] young ast in [facility] [address] freeman, estrogen [place], [place] HEMATOLOGY/ONCOLO receptor p ositive [id number] [place] DEPT. [phone] [place], [place] [address] Social History Tobacco Use Types [...] encounter Progress Notes Dustin Camp MD - 12/23/2019 9:00 AM EDT Heme-Onc Staff Subjective: I spoke with Jia Dow by phone this morning to followup with my consultation of November 28. Briefly, she is a 49 year old woman with an isolated dermal recurrence in her chest wall, which presentedabout six years after primary therapy with a mastectomy and four and one half years of tamoxifen. 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 There were questions raised in my consultation about her prognosis and about the next appropriate endocrine therapy. She spoke with Dr. Tinajero twice, last on December 13, and he said that he thought she had a 20-25% risk of distant recurrence after this recurrence, and he discussed treatment with ovarian suppression with an aromatase inhibitor or with fulvestrant. Jia resumed treatment with half-dose tamoxifen a week ago, and she is hoping to start fulvestrant in January. It is not clear where she will be receiving fulvestrant, she is thinking about returning to [facility]. Decision Making/Plan: Jia will get back to me if she wants me to participate in her care. Patient verbally consents to this telephone visit and understands that this visit may be billed, similar to a clinic office visit. I provided care to the patient today via telephone call. The total time associated with this visit was 20 minutes. Dustin Camp MD aerial tram operator in Hematology-Oncology documented in this encounter Plan of Treatment Not on filedocumented as of this encounter Visit Diagnoses Diagnosis Malignant neoplasm of overlapping sites of right breast in female, estrogen receptor positive documented in this encounter Care Teams Casting Wheel Operator Relationship Specialty Start Date End Date Filomena Ochoa PA PCP - General Family Medicine 11/01/18 [address] [place] [phone] documented as of this encounter
--- OUTSIDE RECORDS SUMMARY | 2021-11-29 00:20 | XMS_ITS | Encounter Summary ---
:1970 [place] [address] Care Team Providers Name Role Phone Filomena Ochoa Primary Care Provider Encounter Details Date Type Department Care Team Description 04/06/2019 Ancillary [facility] [place] [address] HEMATOLOGY/ONCOLOGY [phone] DEPT. [place] [phone] (Wo rk) Social History Tobacco Use Types [...] Diagnosis Comme nts FILM LIBRARY Routine 04/06/2019 12:05 AM Results for this STORAGE ONLY CT EST procedure ar e in CHEST ABDOMEN the results PELVIS section. documented in this encounter Results Film Library- Storage Only CT Chest Abdomen Pelvis (04/06/2019 12:05 AM EST) Specimen (Source) Anatomical Location Collection Method / Collectio n Time Received Time / Laterality Volume Narrative RAD - 11/09/2019 4:48 PM EDT This exam is auto-finalizing. It's purpo se is for storage only. Dustin Camp MD IMG FILM LIBRARY ORDERABLES Performing Organization Address City/State/ZIP Code Phon e Number RAD [place], [place] documented in this encounter Visit Diagnoses Not on filedocumented in this encounter Care Teams Machine Operator Slitter Technician Relationship Specialty Start Date End Date Filomena Ochoa PA PCP - General Family Medicine 11/01/18 [address] [place] [phone] documented as of this encounter
--- OUTSIDE RECORDS SUMMARY | 2021-11-29 00:20 | XMS_ITS | Encounter Summary ---
:1970 Author Organization [facility] [place] [address] Care Team Providers Name Role Phone Filomena Ochoa Primary Care Provider Encounter Details Date Type Department Care Team Description 06/03/2019 Telephone Radiation Oncology a t [facility] Fransisco Chung [address] [place] [phone] Social History Tobacco Use Types Packs/Day Years Used Date Never Smoker Smokeless Tobacco: Never Used Alcohol Use Standard Drinks/Week Comments Not Currently 0 (1 standard drink = 0.6 oz pure alcoho l) [facility] Alcohol Habits Answer Date Recorded How often [...] on filedocumented in this encounter Care Teams Assistant Auto Center Manager Relationship Specialty Start Date End Date Filomena Ochoa PA PCP - General Family Medicine 11/01/[address] [place] [phone] documented as of this encounter
--- OUTSIDE RECORDS SUMMARY | 2021-11-29 00:20 | XMS_ITS | Encounter Summary ---
:1970 Author Organization [facility] [place] [address] Care Team Providers Name Role Phone Filomena Ochoa Primary Care Provider Encounter Details Date Type Department Care Team Description 06/14/2019 Telephone Radiation Oncology at [facility] RN [place] [phone] Social History Tobacco Use Types Packs/Day Years Used Date Never Smoker Smokeless Tobacco: Never Used Alcohol Use Standard Drinks/Week Comments Not Currently 0 (1 standard drink = 0.6 oz pure alcoho l) [facility] Alcohol Habits Answer Date Recorded How [...] this encounter Miscellaneous Notes Telephone Encounter - Izabel Santos RN - 06/14/2019 4:50 PM EDT Telephone call to patient as requested by Dr. Livia Cabral to inquire as to if patient has decided toto have radiation therapy at [facility]. No answer. Voice mail is unidentifiable so no message left. Plan: Will try contact again tomorrow. documented in this encounter Plan of Treatment Not on filedocumented as of this encounter Visit Diagnoses Not on filedocumented in this encounter Care Teams Molded Goods Embossing Press Operator Relationship Specialty Start Date End Date Filomena Ochoa PA PCP - General Family Medicine 11/01/18 [address] [place] [phone] documented as of this encounter
--- OUTSIDE RECORDS SUMMARY | 2021-11-29 00:22 | XMS_ITS | Encounter Summary ---
:1970 Author Organization [facility] Address [address] [place] [address] Care Team Providers Name Role Phone Filomena Ochoa PA-C Primary Care Provider [phone] Reason for Visit Reason Comments Injections Prior Authorization (Routine/Next Available) - Closed Specialty Diagnoses / Procedures Referred By Contact Refer red To Contact Hematology and Diagnoses Malignant neoplasm of female breast, unspecified estrogen receptor status, unspecified laterality, unspecified site of breast ([facility]) (HCC) Jessi Pleitez MD PhD Ep2 Hem/Onc Oncology 111 [facility] [address] [place], [place] [id number] [place] [address], [address] [place], [place] Fax: [phone] Referral ID Status Reason Start Date Expiration Date Visits Requ ested Visits Authorized [id number] Closed Other 02/06/2020 09/11/2021 15 15 Encounter Details Date Type Department Care Team Description 08/19/2021 Hospital Encounter [facility] Recu rrent cancer of Hematology & Oncology right breast ([facility]) [facility] ([facility]) (Primary Dx) [address] [place] [address] Social History Tobacco Use Types Packs/Day Years Used Date Never Smoker Smokeless Tobacco: Never Used Alcohol Use Standard Drinks/Week Comments Yes 2 (1 standard drink = 0.6 oz pure alcoho l) Alcohol Habits Answer Date Recorded How often do you have a drink containing alcohol? 2-3 times a week 11/08/2019 How many drinks containing alcohol do you have on a 1 or 2 11/08/2019 typical day when you are drinking? How often do you have six or more drinks on one Never 11/08/2019 occasion? Comment: rare 12/18/2009 Food Insecurity Answer Date Recorded Within the past 12 months, you worried that your food would Never true 08/22/2019 run out before you got money to buy more. Within the past 12 months, the food you bought just didn't N ever true 08/22/2019 last and you didn't have money to get more. Sex Assigned at Date Recorded Not on file documented as of this encounter Last Filed Vital Signs Vital Sign Reading Time Taken Comments Blood Pressure 110/79 08/19/2021 1136 EDT Pulse 52 08/19/2021 1136 EDT Temperature 36.4 ??C (97.5 ??F) 08/19/2021 1136 EDT Respiratory Rate 16 08/19/2021 1136 EDT Oxygen Saturation 100% 08/19/2021 1136 EDT Inhaled Oxygen Concentration - - Weight 63 kg (138 lb 12.8 oz) 08/19/2021 1136 EDT Height - - Body Mass Index 21.79 06/12/2021 1016 EDT documented in this encounter Functional Status Functional Status Response Date of Assessment Are you deaf or do you have serious difficulty hearing? No 08/25/2020 Are you blind or do you have serious difficulty seeing, No 08/25/2020 even when wearing glasses? Do you have serious difficulty walking or climbing No 08/25/2020 stairs? (5 years old or older) Do you have difficulty dressing or bathing? (5 years old No 08/25/2020 or older) Because of a physical, mental, or emotional condition, do No 08/25/2020 you have difficulty doing errands alone such as visiting a doctor's office or shopping? (15 years old or older) Cognitive Status Response Date of Assessment Because of a physical, mental, or emotional condition, do No 08/25/2020 you have serious difficulty concentrating, remembering, or making decisions? (5 years old or older) documented as of this encounter Medications at Time of Discharge Medication Sig Dispensed Refills Start Date End Date buPROPion (WELLBUTRIN XL) Take 1 Tablet by 90 Tablet 3 04/23 300 mg XL mouth daily. tabletIndications: Depression, unspecified depression type ergocalciferol, vitamin Take by mouth. 0 D2, (VITAMIN D ORAL) fluticasone propionate Instill 100 mcg 0 (FLONASE) 50 mcg/actuation into both nostrils nasal spray as needed. LORazepam (ATIVAN) 0.5 mg Take 1 Tablet by 10 Tablet 0 02/24 tablet mouth at bedtime as needed for Anxiety or Sleep. Daily Max: 0.5 mg melatonin 10 mg tablet Take by mouth at 0 bedtime. Miscellaneous Medication - CS-TESTOSTERONE 3 1 Each 3 See Admin MG/GM Cream InstructionsIndications: Dispenser Recurrent cancer of right Directions: Apply breast (HCC-CMS) (HCC) 1 gram (4 clicks) every day. Dispense 90 grams with 3 refills traZODone (DESYREL) 100 mg Take 1.5 Tablets 135 Tablet 3 tablet by mouth at bedtime. UNABLE TO FIND as needed. Med 0 Name: Brian'cherelle Lubin lisdexamfetamine (VYVANSE) Take 1 capsule by 84 capsule 0 11/18/2021 40 mg capsule mouth every morning for 84 days. Daily Max: 40 mg documented as of this encounter Discharge Disposition Disposition Code Departure Means Destination Home or Self Care documented in this encounter Progress Notes Carmen Calloway RN - 08/19/2021 1100 EDT Patient arrives today for Cycle 16 of Faslodex. Labs were drawn prior, and there are no dose adjustments from last month's labs. Faslodex 500 mg administered IM to bilateral upper/outer gluteal muscles in two 250 mg injections; each given over approximately 2 minutes with patient lying prone in a bed. Patient tolerated these injections without issue, sites are clean/dry/intact, bands aid applied. Perpatient, she has a spot to right buttock, more medial than lateral that is sore from a previous injection. Patient will return on 09/19 for her next faslodex. She has a zometa infusion this week on 08/21. I was supervised by Dr. Delvalle who was present and immediately available in the office suite. CARMEN CALLOWAY RN 08/19/2021 11:25 documented in this encounter Miscellaneous Notes Addendum Note - Juan Joyce - 08/19/2021 1100 EDT Encounter addended by: Juan Joyce on: 08/27/2021 10:00 Actions taken: Charge Capture section accepted documented in this encounter Plan of Treatment Upcoming Encounters Date Type Specialty Care Team Description 12/16/2021 Appointment Infusion Therapy 04/15/2022 Office Visit Hematology and Oncology Poppy Felton, PAChuyC 111 [facility] 2 [place], [place] [phone] (Wo rk) 05/30/2022 Office Visit Surgical Oncology Asa Cameron MD 111 [facility] 2 [place], [place] [phone] (Wo rk) Scheduled Orders Name Type Priority Associated Diagnoses Order S chedule COMPLETE BLOOD COUNT AND Lab STAT Recurrent cancer of 20 Occurrences starting DIFFERENTIAL right breast ([facility]) 08/19 until ([facility]) 08/19/2022, 3 c ompleted documented as of this encounter Procedures Procedure Name Priority Date/Time Associated Comments Diagnosis COMPREHENSIVE STAT 08/19/2021 11:16 Recurrent cancer of Res ults for this METABOLIC PANEL EDT right breast procedure ar e in (ONCOLOGY USE ONLY-INC ([facility]) ([facility]) th e results MG) section. COMPLETE BLOOD COUNT STAT 08/19/2021 11:16 Recurrent cancer of Results for this AND DIFFERENTIAL EDT right breast procedure a re in ([facility]) ([facility]) the results section. documented in this encounter Results (ABNORMAL) COMPLETE BLOOD COUNT AND DIFFERENTIAL (10/18/2021 9:52 EDT) Pathologist Sig nature WBC 5.46 4.00 - 12.40 [facility] LABORATORY SERVICES RBC 4.17 3.86 - 5.04 [facility] LABORATORY SERVICES Hemoglobin 13.2 11.6 - 15.2 [facility] gm/dL LABORATORY SERVICES HCT 38.6 34.9 - 44.4 % [facility] LABORATORY SERVICES MCV 93 81 - 98 fl [facility] LABORATORY SERVICES MCH 31.7 26.7 - 33.3 pg [facility] LABORATORY SERVICES MCHC 34.2 32.1 - 35.9 [facility] gm/dL LABORATORY SERVICES RDW-CV 11.9 <14.7 % [facility] LABORATORY SERVICES RDW-SD 40.5 <50.4 fl [facility] LABORATORY SERVICES PLT 229 141 - 377 [facility] LABORATORY SERVICES MPV 8.5 (L) 9.5 - 12.7 fl [facility] LABORATORY SERVICES Neutrophils 51.7 % [facility] LABORATORY SERVICES Lymphocytes 36.8 % [facility] LABORATORY SERVICES Monocytes 9.3 % [facility] LABORATORY SERVICES Eosinophils 1.3 % [facility] LABORATORY SERVICES Basophils 0.7 % [facility] LABORATORY SERVICES Immature Grans 0.2 % [facility] LABORATORY SERVICES Absolute Neutrophils 2.82 2.20 - 8.85 [facility] LABORATORY SERVICES Absolute Lymphocytes 2.01 1.09 - 3.30 [facility] LABORATORY SERVICES Absolute Monocytes 0.51 0.10 - 0.80 [facility] LABORATORY SERVICES Absolute Eosinophils 0.07 0.03 - 0.61 [facility] LABORATORY SERVICES Absolute Basophils 0.04 0.01 - 0.11 [facility] LABORATORY SERVICES Absolute Immature 0.01 0.00 - 0.06 [facility] LABORATORY SERVICES Type of Differential: Auto [facility] LABORATORY SERVICES Specimen Blood - Venous blood (substance) Performing Organization Address City/State/ZIP Code Phon e Number [facility] LABORATORY [address] [place] [address] SERVICES (ABNORMAL) COMPLETE BLOOD COUNT AND DIFFERENTIAL (09/19/2021 16:28 EDT) Pathologist [facility] nature WBC 6.02 4.00 - 12.40 [facility] LABORATORY SERVICES RBC 4.13 3.86 - 5.04 [facility] LABORATORY SERVICES Hemoglobin 13.1 11.6 - 15.2 [facility] gm/dL LABORATORY SERVICES HCT 39.0 34.9 - 44.4 % [facility] LABORATORY SERVICES MCV 94 81 - 98 fl [facility] LABORATORY SERVICES MCH 31.7 26.7 - 33.3 pg [facility] LABORATORY SERVICES MCHC 33.6 32.1 - 35.9 [facility] gm/dL LABORATORY SERVICES RDW-CV 12.5 <14.7 % [facility] LABORATORY SERVICES RDW-SD 43.2 <50.4 fl [facility] LABORATORY SERVICES PLT 217 141 - 377 [facility] LABORATORY SERVICES MPV 8.6 (L) 9.5 - 12.7 fl [facility] LABORATORY SERVICES Neutrophils 54.8 % [facility] LABORATORY SERVICES Lymphocytes 35.0 % [facility] LABORATORY SERVICES Monocytes 8.1 % [facility] LABORATORY SERVICES Eosinophils 1.2 % [facility] LABORATORY SERVICES Basophils 0.7 % [facility] LABORATORY SERVICES Immature Grans 0.2 % [facility] LABORATORY SERVICES Absolute Neutrophils 3.30 2.20 - 8.85 [facility] LABORATORY SERVICES Absolute Lymphocytes 2.11 1.09 - 3.30 [facility] LABORATORY SERVICES Absolute Monocytes 0.49 0.10 - 0.80 [facility] LABORATORY SERVICES Absolute Eosinophils 0.07 0.03 - 0.61 [facility] LABORATORY SERVICES Absolute Basophils 0.04 0.01 - 0.11 [facility] LABORATORY SERVICES Absolute Immature 0.01 0.00 - 0.06 [facility] LABORATORY SERVICES Type of Differential: Auto [facility] LABORATORY SERVICES Specimen Blood - Venous blood (substance) Performing Organization Address City/State/ZIP Code Phon e Number [facility] LABORATORY [address] [place] [address] SERVICES (ABNORMAL) COMPREHENSIVE METABOLIC PANEL (ONCOLOGY USE ONLY-INC MG) (08/19/2021 11:16 EDT) Pathologist Sig nature Sodium 137 136 - 145 [facility] mmol/L LABORATORY SERVICES Potassium 4.3 3.5 - 5.0 [facility] mmol/L LABORATORY SERVICES Chloride 105 96 - 110 mmol/L [facility] LABORATORY SERVICES CO2 Total 28 22 - 32 mmol/L [facility] LABORATORY SERVICES Glucose 103 (H) 70 - 100 mg/dL [facility] LABORATORY SERVICES BUN 21 10 - 26 mg/dL [facility] LABORATORY SERVICES Creatinine 0.87 0.52 - 1.04 [facility] mg/dL LABORATORY SERVICES eGFR 82 >60 [facility] mL/min/1.73m2 LABORATORY SERVICES Total Protein 6.6 6.3 - 8.2 g/dL [facility] LABORATORY SERVICES Albumin 4.1 3.4 - 4.9 g/dL [facility] LABORATORY SERVICES Alkaline Phosphatase 45 38 - 126 U/L [facility] LABORATORY SERVICES AST 23 15 - 46 U/L [facility] LABORATORY SERVICES ALT 19 <35 U/L [facility] LABORATORY SERVICES Bilirubin, Total <0.5 <1.4 mg/dL [facility] LABORATORY SERVICES Calcium 9.5 8.5 - 10.5 [facility] mg/dL LABORATORY SERVICES Magnesium 2.2 1.7 - 2.8 mg/dL [facility] LABORATORY SERVICES Albumin/Globulin 1.6 1.0 - 2.5 [facility] Ratio LABORATORY SERVICES Anion Gap 4 (L) 5 - 14 [facility] LABORATORY SERVICES Specimen Blood - Venous blood (substance) Performing Organization Address City/State/ZIP Code Phon e Number [facility] LABORATORY [address] [place] [address] SERVICES (ABNORMAL) COMPLETE BLOOD COUNT AND DIFFERENTIAL (08/19/2021 11:16 EDT) Pathologist Sig nature WBC 5.94 4.00 - 12.40 [facility] LABORATORY SERVICES RBC 4.33 3.86 - 5.04 [facility] LABORATORY SERVICES Hemoglobin 13.7 11.6 - 15.2 [facility] gm/dL LABORATORY SERVICES HCT 41.7 34.9 - 44.4 % [facility] LABORATORY SERVICES MCV 96 81 - 98 fl [facility] LABORATORY SERVICES MCH 31.6 26.7 - 33.3 pg [facility] LABORATORY SERVICES MCHC 32.9 32.1 - 35.9 [facility] gm/dL LABORATORY SERVICES RDW-CV 13.2 <14.7 % [facility] LABORATORY SERVICES RDW-SD 46.7 <50.4 fl [facility] LABORATORY SERVICES PLT 235 141 - 377 [facility] MPV 8.5 (L) 9.5 - 12.7 fl [facility] LABORATORY SERVICES Neutrophils 47.4 % [facility] LABORATORY SERVICES Lymphocytes 41.6 % [facility] LABORATORY SERVICES Monocytes 8.8 % [facility] LABORATORY SERVICES Eosinophils 1.5 % [facility] LABORATORY SERVICES Basophils 0.5 % [facility] LABORATORY SERVICES Immature Grans 0.2 % [facility] LABORATORY SERVICES Absolute Neutrophils 2.82 2.20 - 8.85 [facility] LABORATORY SERVICES Absolute Lymphocytes 2.47 1.09 - 3.30 [facility] LABORATORY SERVICES Absolute Monocytes 0.52 0.10 - 0.80 [facility] LABORATORY SERVICES Absolute Eosinophils 0.09 0.03 - 0.61 [facility] LABORATORY SERVICES Absolute Basophils 0.03 0.01 - 0.11 [facility] LABORATORY SERVICES Absolute Immature 0.01 0.00 - 0.06 [facility] LABORATORY SERVICES Type of Differential: Auto [facility] LABORATORY SERVICES Specimen Blood - Venous blood (substance) Performing Organization Address City/State/ZIP Code Phon e Number [facility] LABORATORY [address] [place] [address] SERVICES documented in this encounter Visit Diagnoses Diagnosis Recurrent cancer of right breast (HCC-CM S) (HCC) - Primary documented in this encounter Administered Medications Inactive Administered Medications - up to 3 most recent administrations Medication Order MAR Action Action Date Dose Rate Site fulvestrant (FASLODEX) injection 500 Given 08/19/2021 11:38 EDT 500 mg mg 500 mg, intramuscular, NOW X1, 1 dose, On 08/19/21 at 1145, Routine documented in this encounter Orders Medications Ordered That Might Not Have Count Last Ord ered Date First Ordered Date Been Administered fulvestrant (FASLODEX) injection 500 mg 1 08/20/19 22 Appointment Requests Count Last Ordered Date First Ord ered Date ONCBCN INFUSION APPOINTMENT REQUEST - 1 08/19/2021 CALCULATED documented in this encounter Care Teams Aircraft Engine Mechanic Supervisor Relationship Specialty Start Date End Date Filomena Ochoa PA-C PCP - General 03/02/18 [address] [place] [phone] documented as of this encounter
--- OUTSIDE RECORDS SUMMARY | 2021-11-29 00:22 | XMS_ITS | Encounter Summary ---
:1970 Author Organization [facility] Address [address] [place] [address] Care Team Providers Name Role Phone Filomena Ochoa PA-C Primary Care Provider [phone] Reason for Visit Reason Comments Injections Prior Authorization (Routine/Next Available) - Closed Specialty Diagnoses / Procedures Referred By Contact Refer red To Contact Hematology and Diagnoses Malignant neoplasm of female breast, unspecified estrogen receptor status, unspecified laterality, unspecified site of breast ([facility]) (HCC) Jessi Pleitez MD PhD Ep2 Hem/Onc Oncology 111 [facility] [address] [place], [place] [id number] [place] [address], Level [address] [place], [place] Fax: [phone] Referral ID Status Reason Start Date Expiration Date Visits Requ ested Visits Authorized [id number] Closed Other 02/06/2020 09/11/2021 15 15 Encounter Details Date Type Department Care Team Description 06/17/[address] [facility] Cancer Center Recu rrent cancer of Hematology & Oncology right breast ([facility]) [facility] ([facility]) (Primary Dx) [address] [place] [address] Social History Tobacco Use Types Packs/Day Years [...] Assigned at Date Recorded Not on file COVID-19 Exposure Response Date Recorded In the last 10 days, have you been in contact with No / Unsu re 05/31/2021 16:05 EDT someone who was confirmed or suspected to have Coronavirus/COVID-19? documented as of this encounter Last Filed Vital Signs Vital Sign Reading Time Taken Comments Blood Pressure 94/55 06/17/2021 0839 EDT Pulse 56 06/17/2021 0839 EDT Temperature 36.8 ??C (98.2 ??F) 06/17/2021 0839 EDT Respiratory Rate 12 06/17/2021 0839 EDT Oxygen Saturation 98% 06/17/2021 0839 EDT Inhaled Oxygen Concentration - - Weight 64.4 kg (142 lb) 06/17/2021 0839 EDT Height - - Body Mass Index 22.29 06/12/2021 1016 EDT documented in this encounter [...] tablet Take by mouth at 0 bedtime. traZODone (DESYREL) 100 mg Take 1.5 Tablets 135 Tablet 3 tablet by mouth at bedtime. UNABLE TO FIND as needed. Med 0 Name: [facility] Russell lisdexamfetamine (VYVANSE) Take 1 capsule by 84 capsule 0 08/07/2021 40 mg capsule mouth every morning for 84 days. Daily Max: 40 mg documented as of this encounter Discharge Disposition Disposition Code Departure Means Destination Home or Self Care documented in this encounter Progress Notes Lisseth Armenta RN - 06/17/2021 0830 EDT .This is cycle 14 of supportive treatment with Faslodex.she reports her right side was numb after last injection to that side and flt different for several days. She does not have any complaints today or questions. Jia finds it best to lie on her stomach for administration of Fulvestrant IM into her right and left upper outer gluteus muscles. They were administered over two minutes and this improves comfort for Jia. She has a appointment next month and knows to contact team with any concerns. I was supervised by Dr. Delvalle who was present at the clinic and immediately available. Lisseth Armenta RN 06/17/2021 documented in this encounter Miscellaneous Notes Addendum Note - My Benz - 06/17/2021 0830 EDT Encounter addended by: My Benz on: 06/24/2021 14:16 Actions taken: Charge Capture section accepted documented in this encounter Plan of Treatment Upcoming Encounters Date Type Specialty Care Team Description 12/16/2021 Appointment Infusion Therapy 04/15/2022 Office Visit Hematology and Oncology Poppy Felton PA-C 111 [facility] 2 [place], [place] [phone] (Wo rk) 05/30/2022 Office Visit Surgical Oncology Asa Cameron MD [address] [phone] (Wo rk) documented as of this encounter Visit Diagnoses Diagnosis Recurrent cancer of right breast (HCC-CM S) (HCC) - Primary documented in this encounter Administered Medications Inactive Administered Medications - up to 3 most recent administrations Medication Order MAR Action Action Date Dose Rate Site fulvestrant (FASLODEX) injection 500 Given 06/17/2021 8:56 EDT 5 00 mg mg 500 mg, intramuscular, NOW X1, 1 dose, On 06/17/21 at 0915, Routine documented in this encounter Orders Medications Ordered That Might Not Have Count Last Ord ered Date First Ordered Date Been Administered fulvestrant (FASLODEX) injection 500 mg 1 06/18/19 22 Appointment Requests Count Last Ordered Date First Ord ered Date ONCBCN INFUSION APPOINTMENT REQUEST - 1 06/17/2021 CALCULATED documented in this encounter Care Teams [employer] Tube Bender Relationship Specialty Start Date End Date Filomena Ochoa PA-C PCP - General 03/02/18 [address] [place] [phone] documented as of this encounter
--- OUTSIDE RECORDS SUMMARY | 2021-11-29 00:22 | XMS_ITS | Encounter Summary ---
:1970 Author Organization [facility] Address [address] [place] [address] Care Team Providers Name Role Phone Filomena Ochoa PA-C Primary Care Provider [phone] Reason for Visit Reason Comments Follow-up Injections Encounter Details Date Type Department Care Team Description 09/19/2021 Telemedicine [facility] Jessi Pleitez MD Recur [facility] cancer of Hematology & PhD right breast Oncology - [address] ([facility]) (HCC) [address] (Primary Dx) [address] [place] [address] Pavilion, [place] [phone] (Wo rk) Social History Tobacco Use Types [...] Sign Reading Time Taken Comments Blood Pressure 215/71 09/19/2021 1602 EDT Pulse 64 09/19/2021 1602 EDT Temperature 36.1 ??C (96.9 ??F) 09/19/2021 1602 EDT Respiratory Rate 16 09/19/2021 1602 EDT Oxygen Saturation 98% 09/19/2021 1602 EDT Inhaled Oxygen Concentration - - Weight 63.1 kg (139 lb 3.2 oz) 09/19/2021 1602 EDT Height - - Body Mass Index 21.85 06/12/2021 1016 EDT documented in this encounter [...] or older) documented as of this encounter Progress Notes Jessi Pleitez MD PhD - 09/19/2021 1600 EDT REASON FOR OFFICE VISIT: Discussion of side effects related to faslodex. ? The concept of ???Telemedicine?? has been described to the patient. Patient has been informed of the anticipated benefits and possible risks. Patient understands the information provided regarding telemedicine, has had the opportunity to ask questions about this information, and all questions have been answered to patient???s satisfaction. Patient consents for the use of telemedicine in his/her medical care and authorizes the transmission of any relevant medical information to providers and their staff involved in patient???s medical or mental health care. PROBLEM LIST: ?? 1. Recurrence of invasive adenocarcinoma presenting as a nodule near right surgical scar A. Excision 03/16/2019 with a reexcision for positive margins on 04/06/2019 B. Pathology consistent with invasive ductal carcinoma with tubular features in the dermis, 4mm, thewell differentiated, ER positive 95%, AL +95%, HER-2 0 by IHC [address] scans and nuclear bone scan negative D. Radiation 15 fractions to right chest wall June 2019 E. Tamoxifen 10 mg initiated April 2019 stopped September 2019 because of mood issues. Restarted November through December and discontinued in December 2019 F. Fulvestrant initiated 02/10/20 2. Invasive adenocarcinoma of the right breast identified based palpable mass in June 2011. ?? a.??Total mastectomy and prophylactic mastectomy performed 08/14/2011 with pathology revealing a 1.2 cm invasive ductal carcinoma of the right breast, well-differentiated, lymphovascular invasion identified on the core biopsy and by DFCI there was an area on the mastectomy specimen. 0/4 lymph nodes; ER+ >90%, AL+ >??90%; HER-2 2+ by immunohistochemistry and negative by FISH. Oncotype DX score 20(intermediate range). ?? b. Tamoxifen 08/2011 until Mar 2016 with a small break to try toremefine, but then back to tamoxifen which she took approximately 4/ 1/2 years 3. Family history of breast cancer, grandmother of breast cancer; genetic testing negative for BRCA mutation 4. Gynecologic history: Perimenopausal 5. Bone Density April 2019: low end of normal spine and hips A. Zometa initiated June 2020 6. Other chronic health problems include ADHD, depression??and anxiety. ?? SUBJECTIVE: Ms Dow presents to clinic today to discuss side effects related to fluvestrant. She has been on it for about 18 months. She took tamoxifen for 6months prior to that She does not have hotflashes. She sometime she has fatigue after the injection but it is consistent. She had some aching after zometa but it is tolerable. She has occasional menstrual periods. She will be gone again Dec ROS: A 10 point review of systems was obtained. Other than described in the subjective she has no medical concerns or issues. Medications Prior to Today's Visit Medication Sig ??? buPROPion (WELLBUTRIN XL) 300 mg XL tablet Take 1 Tablet by mouth daily. ??? ergocalciferol, vitamin D2, (VITAMIN D ORAL) Take by mouth. ??? fluticasone propionate (FLONASE) 50 mcg/actuation nasal spray Instill 100 mcg into both nostrilsas needed. ??? lisdexamfetamine (VYVANSE) 40 mg capsule Take 1 capsule by mouth every morning for 84 days. Daily Max: 40 mg ??? LORazepam (ATIVAN) 0.5 mg tablet Take 1 Tablet by mouth at bedtime as needed for Anxiety or Sleep. Daily Max: 0.5 mg ??? melatonin 10 mg tablet Take by mouth at bedtime. ??? Miscellaneous Medication - See Admin Instructions CS-TESTOSTERONE 3 MG/GM Cream Dispenser Directions: Apply 1 gram (4 clicks) every day. Dispense 90 grams with 3 refills ??? traZODone (DESYREL) 100 mg tablet Take 1.5 Tablets by mouth at bedtime. ??? UNABLE TO FIND as needed. Med Name: Bourbon'cherelle Russell No facility-administered medications prior to visit. Social History Tobacco Use ??? Smoking status: Never Smoker ??? Smokeless tobacco: Never Used Substance Use Topics ??? Alcohol use: Yes Alcohol/week: 2.0 standard drinks Types: 2 Standard drinks or equivalent per week Very physically active Objective: There were no vitals taken for this visit. Estimated body mass index is 22.22 kg/m?? as calculated from the following: Height as of 06/12/21: 170 cm (66.93). Weight as of 08/21/21: 64.2 kg (141 lb 9.6 oz). ECOG Performance Status: 0 General: Comfortable, cooperative and in no apparent distress NEURO: Alert and oriented x 3; Grossly neurologically intact DIAGNOSTIC DATA No visits with results within 1 Day(s) from this visit. Latest known visit with results is: Hospital Outpatient Visit on 08/19/2021 Component Date Value Ref Range Status ??? Sodium 08/19/2021 137 136 - 145 mmol/L Final ??? Potassium 08/19/2021 4.3 3.5 - 5.0 mmol/L Final ??? Chloride 08/19/2021 105 96 - 110 mmol/L Final ??? CO2 Total 08/19/2021 28 22 - 32 mmol/L Final ??? Glucose 08/19/2021 103 (A) 70 - 100 mg/dL Final ??? BUN 08/19/2021 21 10 - 26 mg/dL Final ??? Creatinine 08/19/2021 0.87 0.52 - 1.04 mg/dL Final ? ? eGFR 08/19/2021 82 >60 mL/min/1.73m2 Final ??? Total Protein 08/19/2021 6.6 6.3 - 8.2 g/dL Final ??? Albumin 08/19/2021 4.1 3.4 - 4.9 g/dL Final ??? Alkaline Phosphatase 08/19/2021 45 38 - 126 U/L Final ??? AST 08/19/2021 23 15 - 46 U/L Final ? ? ALT 08/19/2021 19 <35 U/L Final ? ? Bilirubin, Total 08/19/2021 <0.5 <1.4 mg/dL Final ??? Calcium 08/19/2021 9.5 8.5 - 10.5 mg/dL Final ??? Magnesium 08/19/2021 2.2 1.7 - 2.8 mg/dL Final ??? Albumin/Globulin Ratio 08/19/2021 1.6 1.0 - 2.5 Final ??? Anion Gap 08/19/2021 4 (A) 5 - 14 Final ??? WBC 08/19/2021 5.94 4.00 - 12.40 K/cmm Final ??? RBC 08/19/2021 4.33 3.86 - 5.04 M/cmm Final ??? Hemoglobin 08/19/2021 13.7 11.6 - 15.2 gm/dL Final ??? HCT 08/19/2021 41.7 34.9 - 44.4 % Final ??? MCV 08/19/2021 96 81 - 98 fl Final ??? MCH 08/19/2021 31.6 26.7 - 33.3 pg Final ??? MCHC 08/19/2021 32.9 32.1 - 35.9 gm/dL Final ? ? RDW-CV 08/19/2021 13.2 <14.7 % Final ? ? RDW-SD 08/19/2021 46.7 <50.4 fl Final ??? PLT 08/19/2021 235 141 - 377 K/cmm Final ??? MPV 08/19/2021 8.5 (A) 9.5 - 12.7 fl Final ??? Neutrophils 08/19/2021 47.4 % Final ??? Lymphocytes 08/19/2021 41.6 % Final ??? Monocytes 08/19/2021 8.8 % Final ??? Eosinophils 08/19/2021 1.5 % Final ??? Basophils 08/19/2021 0.5 % Final ??? Immature Grans 08/19/2021 0.2 % Final ??? Absolute Neutrophils 08/19/2021 2.82 2.20 - 8.85 K/cmm Final ??? Absolute Lymphocytes 08/19/2021 2.47 1.09 - 3.30 K/cmm Final ??? Absolute Monocytes 08/19/2021 0.52 0.10 - 0.80 K/cmm Final ??? Absolute Eosinophils 08/19/2021 0.09 0.03 - 0.61 K/cmm Final ??? Absolute Basophils 08/19/2021 0.03 0.01 - 0.11 K/cmm Final ??? Absolute Immature Grans 08/19/2021 0.01 0.00 - 0.06 K/cmm Final ??? Type of Differential: 08/19/2021 Auto Final ASSESSMENT: ?Ms Dow is a 51-year-old female with a history of a [id number] invasive ductal carcinoma which was??ER positive, well-differentiated in 2011. She had a local recurrence February 2019. She is currently receiving monthly fulvestrant. Which she is tolerating better than tamoxifen. She willalso receive zometa every 6 months. PLAN: 1. Fulvestrant 500mg Monthly. 5 years of anti estrogen therapy would be completed July 2024 2. Next Zometa Mar 2022 when she returns to [place] 3. Next bone density scan would be due April 2023. Will check a Vit D level 4. Continued follow up with Dr Cameron who she sees in November 2021 5. Follow-up return in Mar when she will be receiving zometa again. ?? TELEMEDICINE VIDEO VISIT Today's visit was provided through telemedicine video conferencing: I have reviewed the appropriateness of using video technology with the patient with regards to today's visit. The location of the patient : clinical exam room Patient location state: Visit Location State: [place] The location of the provider: Office Provider location state: Visit Location State: [place] The following people and their roles were present for today's visit: Appointment Provider: Jessi Pleitez MD PhD Jessi Pleitez MD PhD documented in this encounter Plan of Treatment Upcoming Encounters Date Type Specialty Care Team Description 12/16/2021 Appointment Infusion Therapy 04/15/2022 Office Visit Hematology and Oncology Poppy Felton PA-C [address] [phone] (Larissa rk) 05/30/2022 Office Visit Surgical Oncology Asa Cameron MD [address] [phone] (Wo rk) documented as of this encounter Results VITAMIN D (25,OH) (09/19/2021 16:28 EDT) 25OH Vitamin D 37 30 - 100 [facility] Comment: ng/mL [facility] Vitamin D 25,OH Interpretive Ranges: SERV ICES Deficiency: ??<10.0 ng/mL Insufficiency: ??10.0 - 30.0 ng/mL Sufficiency: ??30.0 - 100.0 ng/mL Toxicity: ??>100.0 ng/mL Specimen Blood - Venous blood (substance) Performing Organization Address City/State/ZIP Code Phon e Number [facility] [address] [place] [address] SERVICES documented in this encounter Visit Diagnoses Diagnosis Recurrent cancer of right breast (HCC-CM S) (HCC) - Primary documented in this encounter Care Teams Product Ambassador Relationship Specialty Start Date End Date Filomena Ochoa PA-C PCP - General 03/02/[address] [place] [phone] documented as of this encounter
--- OUTSIDE RECORDS SUMMARY | 2021-11-29 00:22 | XMS_ITS | Encounter Summary ---
:1970 Author Organization [facility] Address [address] [place] [address] Care Team Providers Name Role Phone Filomena Ochoa PA-C Primary Care Provider Reason for Visit Reason Onset Date Comments Appointment Related 11/27/2021 Encounter Details Date Type Department Care Team Description 11/27/2021 Telephone [facility] Asa Cameron MD Appointment Related Surgical Oncology - [address] [place] [address], [address], [address] [place], [place] [id number] [place] [address] [phone] (Wo rk) Social History Tobacco Use Types [...] on file documented as of this encounter Functional Status Functional Status Response [...] or older) documented as of this encounter Miscellaneous Notes Telephone Encounter - Mary Landers - 11/27/2021 1010 EDT Gave pt a call per her message requesting to reschedule her visit with Dr. Cameron on: 11/28/2021 While on the phone with the patient I let her know that we currently have an opening on: 12/03/2021 and then the next available after that would be February, - the patient has opted to keep her appt with on 11/28/2021 Mary Landers 11/27/2021 10:11 elephone Encounter - Evelyn Levin - 11/27/2021 0949 EDT Patient calling to reschedule tomorrow's appt. Please call back to schedule documented in this encounter Plan of Treatment Upcoming Encounters Date Type Specialty Care Team Description 12/16/2021 Appointment Infusion Therapy 04/15/2022 Office Visit Hematology and Oncology Poppy Felton, PAChuyC 111 [facility] 2 [place] [phone] (Wo rk) 05/30/2022 Office Visit Surgical Oncology Asa Cameron MD 111 [facility] 2 [place] [phone] (Wo rk) documented as of this encounter Visit Diagnoses Not on filedocumented in this encounter Care Teams Database Tester Relationship Specialty Start Date End Date Filomena Ochoa PA-C PCP - General 03/02/18 [address] [place] [phone] documented as of this encounter
--- OUTSIDE RECORDS SUMMARY | 2021-11-29 00:22 | XMS_ITS | Encounter Summary ---
:1970 Author Organization [facility] Address [address] [place] [address] Care Team Providers Name Role Phone Filomena Ochoa PA-C Primary Care Provider [phone] Encounter Details Date Type Department Care Team Description 11/28/2021 Ancillary Procedure [facility] Surgical Arrived Oncology - Main [address] [address] Social History Tobacco Use Types Packs/Day Years [...] in contact with No / Unsu re 11/28/2021 15:02 EDT someone who was confirmed or suspected to have Coronavirus/COVID-19? documented as of this encounter Functional Status [...] or older) documented as of this encounter Plan of Treatment Upcoming Encounters Date Type Specialty Care Team Description 12/16/2021 Appointment Infusion Therapy 04/15/2022 Office Visit Hematology and Oncology Poppy Felton PA-C [address] [phone] (Wo rk) 05/30/2022 Office Visit Surgical Oncology Asa Cameron MD [address] [phone] (Wo rk) documented as of this encounter Procedures Procedure Name Priority Date/Time Associated Diagnosis Comme nts [facility] US BREAST - Routine 11/28/2021 16:17 Results for this BREAST CARE CENTER EDT procedure are in ONLY the results section. documented in this encounter Results [facility] BREAST - BREAST CARE CENTER ONLY (11/28/2021 16:17 EDT) Specimen Narrative [facility] POINT OF CARE - 11/28/2021 16:17 E DT This is a non-reportable exam. Performing Organization Address City/State/ZIP Code Phon e Number [facility] POINT OF CARE documented in this encounter Visit Diagnoses Not on filedocumented in this encounter Care Teams Customer Strategy Manager Relationship Specialty Start Date End Date Filomena Ochoa PA-C PCP - General 03/02/18 [address] [place] [phone] documented as of this encounter
--- OUTSIDE RECORDS SUMMARY | 2021-11-29 00:22 | XMS_ITS | Encounter Summary ---
:1970 Author Organization [facility] Address [address] [place] [address] Care Team Providers Name Role Phone Filomena Ochoa PA-C Primary Care Provider [phone] Reason for Visit Reason Onset Date Comments Medications Refill 11/18/2021 Encounter Details Date Type Department Care Team Description 11/18/2021 Refill [facility] Adult Nova Ochoa, Medications Refill Primary Care - Hallie GUDINO [address] [place] [address] [place], [place] [phone] (Wo rk) Social History Tobacco Use Types [...] or older) documented as of this encounter Ordered Prescriptions Prescription Sig Dispensed Refills Start Date End Date lisdexamfetamine (VYVANSE) Take 1 capsule by 84 capsule 0 02/10/2022 40 mg capsule mouth every morning for 84 days. Daily Max: 40 mg documented in this encounter Miscellaneous Notes Telephone Encounter - Filomena Ochoa PA-C - 11/18/2021 1655 EDT eprescribed elephone Encounter - Hermelindo Garcia RN - 11/18/2021 1638 EDT Requested Prescriptions Pending Prescriptions Disp Refills ??? lisdexamfetamine (VYVANSE) 40 mg capsule 84 capsule 0 Sig: Take 1 capsule by mouth every morning for 84 days. Daily Max: 40 mg [facility] - [place], [place] - [address] Confirmed Pharmacy? Yes Patient out of medication? Unknown Last Refill Date: 08/14/21 Refills left? (explain exceptions requiring early refill) No Recent Visits Date Type Provider Dept 05/08/21 Office Visit [place]er, Filomena H, PA-C [place] [facility] Showing recent visits within past 540 days with a meds authorizing provider and meeting all other requirements Future Appointments No visits were found meeting these conditions. Showing future appointments within next 150 days with a meds authorizing provider and meeting all other requirements Future appointment: Other no HERMELINDO GARCIA RN 11/18/2021 16:38 elephone Encounter - Hermelindo Garcia RN - 11/18/2021 1638 EDT From: Jia Dow To: Office of Filomena Ochoa PA-C Sent: 11/18/2021 2:05 EDT Subject: Medication Renewal Request Refills have been requested for the following medications: lisdexamfetamine (VYVANSE) 40 mg capsule [Filomena Ochoa PA-C] Patient Comment: Please refill abby as I am pretty much out (sorry not to request earlier; I've been out of town). I get the 3 month supply. Thank you so mu ch! Preferred pharmacy: [facility] - [address] documented in this encounter Plan of Treatment Upcoming Encounters Date Type Specialty Care Team Description 12/16/2021 Appointment Infusion Therapy 04/15/2022 Office Visit Hematology and Oncology Poppy Felton PA-C [address] [phone] (Larissa felder) 05/30/2022 Office Visit Surgical Oncology Asa Cameron MD [address] [phone] (Larissa felder) documented as of this encounter Visit Diagnoses Diagnosis Attention deficit hyperactivity disorder (ADHD), unspecified ADHD type documented in this encounter Discontinued Medications Medication Sig Discontinue Reason Start Date End Date lisdexamfetamine (VYVANSE) Take 1 capsule by Reorder 2 11/18/2021 40 mg capsule mouth every morning for 84 days. Daily Max: 40 mg documented as of this encounter Care Teams Therapy Administrative Assistant Relationship Specialty Start Date End Date Filomena Ochoa PA-C PCP - General 03/02/18 [address] [place] [phone] documented as of this encounter
--- OUTSIDE RECORDS SUMMARY | 2021-11-29 00:22 | XMS_ITS | Encounter Summary ---
:1970 Author Organization [facility] Address [address] [place] [address] Care Team Providers Name Role Phone Filomena Ochoa PA-C Primary Care Provider [phone] Encounter Details Date Type Department Care Team Description 06/17/2021 Phlebotomy Only [facility] Blood Doctor, Recurr ent cancer of Hematology & Oncology [facility] Hem Onc [facility] (HCC-CMS) (HCC) 111 [facility] (Primary Dx) [place] [address] Social History Tobacco Use Types Packs/Day [...] documented as of this encounter Progress Notes Pawan Cochran MA - 06/17/2021 0800 EDT Venipuncture performed for Dittus Per orders of Dittus Number of attempts 1, left AC I was supervised by Barbara who was present and immediately available in the office suite. PAWAN COCHRAN MA 06/17/2021 8:28 documented in this encounter Plan of Treatment Upcoming Encounters Date Type Specialty Care Team Description 12/16/2021 Appointment Infusion Therapy 04/15/2022 Office Visit Hematology and Oncology Poppy Felton PA-C 111 [facility] 2 [place], [place] [phone] (Larissa felder) 05/30/2022 Office Visit Surgical Oncology Asa Cameron MD 111 [facility], [facility] 2 [place], [place] [phone] (Larissa felder) documented as of this encounter Procedures Procedure Name Priority Date/Time Associated Comments Diagnosis COMPREHENSIVE STAT 06/17/2021 8:34 Recurrent cancer of Resu lts for this METABOLIC PANEL EDT right breast procedure ar e in (ONCOLOGY USE ONLY-INC (HCC-CMS) (HCC) th e results MG) section. documented in this encounter Results (ABNORMAL) COMPREHENSIVE METABOLIC PANEL (ONCOLOGY USE ONLY-INC MG) (06/17/2021 8:34 EDT) Pathologist Sig nature Sodium 138 136 - 145 [facility] mmol/L LABORATORY SERVICES Potassium 4.3 3.5 - 5.0 [facility] mmol/L LAB[facility]ATORY SERVICES Chloride 107 96 - 110 mmol/L [facility] CO2 Total 28 22 - 32 mmol/L [facility] Glucose 65 (L) 70 - 100 mg/dL [facility] BUN 29 (H) 10 - 26 mg/dL [facility] Creatinine 0.83 0.52 - 1.04 [facility] mg/dL LABORATORY SERVICES eGFR 86 >60 [facility] mL/min/1.73m2 LABORATORY SERVICES Total Protein 6.1 (L) 6.3 - 8.2 g/dL [facility] Albumin 3.9 3.4 - 4.9 g/dL [facility] Alkaline Phosphatase 34 (L) 38 - 126 U/L [facility] AST 20 15 - 46 U/L [facility] ALT 16 <35 U/L [facility] Bilirubin, Total <0.5 <1.4 mg/dL [facility] Calcium 9.8 8.5 - 10.5 [facility] mg/dL LABORATORY SERVICES Magnesium 2.1 1.7 - 2.8 mg/dL [facility] Albumin/Globulin 1.8 1.0 - 2.5 [facility] Ratio LAB[facility]ATORY SERVICES Anion Gap 3 (L) 5 - 14 [facility] Specimen Blood - Venous blood (substance) Performing Organization Address City/State/ZIP Code Phon e Number [facility] [address] [place] [address] SERVICES documented in this encounter Visit Diagnoses Diagnosis Recurrent cancer of right breast (HCC-CM S) (HCC) - Primary documented in this encounter Care Teams Fitness Attendant Relationship Specialty Start Date End Date Filomena Ochoa PA-C PCP - General 03/02/18 [address] [place] [phone] documented as of this encounter
--- OUTSIDE RECORDS SUMMARY | 2021-11-29 00:22 | XMS_ITS | Encounter Summary ---
:1970 Author Organization [facility] Address [address] [place] [address] Care Team Providers Name Role Phone Filomena Ochoa PA-C Primary Care Provider [phone] Reason for Visit Reason Comments Infusion Episode Based Medications (Routine) - Authorized Specialty Diagnoses / Procedures Referred By Contact Refer red To Contact Diagnoses Recurrent cancer of right breast ([facility]) ([facility]) Jessi Pleitez MD PhD Ep2 Infusion 111 [facility] e [address] [place] [address] [address], Level 2 [place] [address] Referral ID Status Reason Start Date Expiration Date Visits V isits Requested Authorized [id number] Authorized 09/19/2021 04/03/2022 4 4 Encounter Details Date Type Department Care Team Description 10/18/2021 Hospital Encounter [facility] Cancer Center Recu rrent cancer of Hematology & Oncology right breast (HCC-CMS) - [facility] ([facility]) (Primary Dx) [address] [place], [place] [address] Social History Tobacco Use Types Packs/Day Years [...] Sign Reading Time Taken Comments Blood Pressure 107/58 10/18/2021 0948 EDT Pulse 58 10/18/2021 0948 EDT Temperature 36.3 ??C (97.3 ??F) 10/18/2021 0948 EDT Respiratory Rate 16 10/18/2021 0948 EDT Oxygen Saturation 99% 10/18/2021 0948 EDT Inhaled Oxygen Concentration - - Weight 64.4 kg (142 lb) 10/18/2021 0948 EDT Height - - Body Mass Index [...] Take 1 Tablet by 90 Tablet 3 03/1 07/2021 300 mg XL mouth daily. tabletIndications: Depression, [...] Care documented in this encounter Progress Notes Minerva Atwood RN - 10/18/2021 0943 EDT Patient presents to clinic today for cycle # 18, day # 1 of Faslodex treatment plan. Labs drawn and sent to lab. ?? 500 mg IM injection administered to bilateral gluteal muscles (250 mg X 2) while lying down in bed, her preference (see MAR). No complications at sites, band-aid dressings applied. Pt d/c from clinic in stable condition. ?? Patient tolerating treatment at this time with no signs of reaction or side effects. ?? Patient education: Patient educated on all medications administered today. Patient expressed understanding of education provided and no barriers identified. I was supervised by Namrata who was present and immediately available in the office suite. MINERVA ATWOOD RN 10/18/2021 10:20 ?? documented in this encounter Miscellaneous Notes Addendum Note - Taylor Montilla - 10/18/2021 0945 EDT Encounter addended by: Taylor Montilla on: 10/25/2021 13:48 Actions taken: Charge Capture section accepted documented in this encounter Plan of Treatment Upcoming Encounters Date Type Specialty Care Team Description 12/16/2021 Appointment Infusion Therapy 04/15/2022 Office Visit Hematology and Oncology Poppy Felton PA-C 111 [facility], [facility] 2 [place] [address] (Wo rk) 05/30/2022 Office Visit Surgical Oncology Asa Cameron MD 111 [facility] 2 [place] [address] (Wo rk) documented as of this encounter Procedures Procedure Name Priority Date/Time Associated Comments Diagnosis COMPREHENSIVE STAT 10/18/2021 9:52 Recurrent cancer of Resu lts for this METABOLIC PANEL EDT right breast procedure ar e in (ONCOLOGY USE ONLY-INC ([facility]) ([facility]) th e results MG) section. COMPLETE BLOOD COUNT STAT 10/18/2021 9:52 Recurrent cancer of Results for this AND DIFFERENTIAL EDT right breast procedure a re in ([facility]) ([facility]) the results section. documented in this encounter Results (ABNORMAL) COMPREHENSIVE METABOLIC PANEL (ONCOLOGY USE ONLY-INC MG) (10/18/2021 9:52 EDT) Pathologist Sig nature Sodium 141 136 - 145 [facility] mmol/L [facility] Potassium 4.3 3.5 - 5.0 [facility] mmol/L LAB[facility] Chloride 104 96 - 110 mmol/L [facility] CO2 Total 28 22 - 32 mmol/L [facility] Glucose 55 (L) 70 - 100 mg/dL [facility] BUN 25 10 - 26 mg/dL [facility] Creatinine 0.93 0.52 - 1.04 [facility] mg/dL [facility] eGFR 75 >60 [facility] mL/min/1.73m2 LAB[facility] Total Protein 6.4 6.3 - 8.2 g/dL [facility] Albumin 4.1 3.4 - 4.9 g/dL [facility] Alkaline Phosphatase 37 (L) 38 - 126 U/L [facility] AST 24 15 - 46 U/L [facility] ALT 18 <35 U/L [facility] Bilirubin, Total <0.5 <1.4 mg/dL [facility] Calcium 9.7 8.5 - 10.5 [facility] mg/dL [facility] Magnesium 2.1 1.7 - 2.8 mg/dL [facility] Albumin/Globulin Ratio 1.8 1.0 - 2.5 [facility] Anion Gap 9 5 - 14 [facility] Specimen Blood - Venous blood (substance) Performing Organization Address City/State/ZIP Code Phon e Number [facility] [address] [place] [address] SERVICES (ABNORMAL) COMPLETE BLOOD COUNT AND DIFFERENTIAL (10/18/2021 9:52 EDT) Pathologist Sig nature WBC 5.46 4.00 - 12.40 [facility] RBC 4.17 3.86 - 5.04 [facility] hospital [facility] Hemoglobin 13.2 11.6 - 15.2 [facility] gm/dL [facility] HCT 38.6 34.9 - 44.4 % [facility] MCV 93 81 - 98 fl [facility] MCH 31.7 26.7 - 33.3 pg [facility] MCHC 34.2 32.1 - 35.9 [facility] gm/dL LAB[facility] SERVICES RDW-CV 11.9 <14.7 % [facility] RDW-SD 40.5 <50.4 fl [facility] PLT 229 141 - 377 /m [facility] MPV 8.5 (L) 9.5 - 12.7 fl [facility] Neutrophils 51.7 % [facility] Lymphocytes 36.8 % [facility] Monocytes 9.3 % [facility] Eosinophils 1.3 % [facility] Basophils 0.7 % [facility] Immature Grans 0.2 % [facility] Absolute Neutrophils 2.82 2.20 - 8.85 [facility] hospital [facility] Absolute Lymphocytes 2.01 1.09 - 3.30 [facility] access hospital LABOR[facility]ORY [facility] Absolute Monocytes 0.51 0.10 - 0.80 [facility] LABORATORY SERVICES Absolute Eosinophils 0.07 0.03 - 0.61 [facility] LABOR[facility]ORY SERVICES Absolute Basophils 0.04 0.01 - 0.11 [facility] LABORATORY SERVICES Absolute Immature 0.01 0.00 - 0.06 [facility] Type of Differential: Auto [facility] Specimen Blood - Venous blood (substance) Performing Organization Address City/State/ZIP Code Phon e Number [facility] [address] [place] [address] SERVICES documented in this encounter Visit Diagnoses Diagnosis Recurrent cancer of right breast (HCC-CM S) (HCC) - Primary documented in this encounter Administered Medications Inactive Administered Medications - up to 3 most recent administrations Medication Order MAR Action Action Date Dose Rate Site fulvestrant (FASLODEX) injection 500 Given 10/18/2021 10:08 EDT 500 mg mg 500 mg, intramuscular, NOW X1, 1 dose, On Thu10/18/21 at 1015, Routine documented in this encounter Orders Medications Ordered That Might Not Have Count Last Ord ered Date First Ordered Date Been Administered fulvestrant (FASLODEX) injection 500 mg 1 10/19/19 22 Nursing Count Last Ordered Date First Ordered Date INFORMED CONSENT 10/18/2021 Appointment Requests Count Last Ordered Date First Ord ered Date ONCBCN INJECTION APPOINTMENT REQUEST 1 10/18/2021 documented in this encounter Care Teams Distribution District Supervisor Relationship Specialty Start Date End Date Filomena Ochoa PA-C PCP - General 03/02/18 2 [place] [phone] documented as of this encounter
--- OUTSIDE RECORDS SUMMARY | 2021-11-29 00:22 | XMS_ITS | Encounter Summary ---
:1970 Author Organization [facility] Address [address] [place] [address] Care Team Providers Name Role Phone Filomena Ochoa PA-C Primary Care Provider [phone] Encounter Details Date Type Department Care Team Description 07/09/2021 Orders Only [facility] Cancer Center Jessi Pleitez MD PhD Hematology & Oncology - [address] [place] [address] 2 [place], [place] [address] [place] [phone] (Wo rk) Social History Tobacco Use Types [...] Hematology and Oncology Poppy Felton PA-C [address] [phone] (Wo rk) 05/30/2022 Office Visit Surgical Oncology Asa Cameron MD [address] [phone] (Wo rk) documented as of this encounter Visit Diagnoses Not on filedocumented in this encounter Care Teams C Software Engineer Relationship Specialty Start Date End Date Filomena Ochoa PA-C PCP - General 03/02/18 2 [place] [address] documented as of this encounter
--- OUTSIDE RECORDS SUMMARY | 2021-11-29 00:22 | XMS_ITS | Encounter Summary ---
:1970 Author Organization [facility] Address [address] [place] [address] Care Team Providers Name Role Phone Filomena Ochoa PA-C Primary Care Provider [phone] Encounter Details Date Type Department Care Team Description 10/10/2021 Orders Only [facility] Cancer Center Jessi Pleitez MD PhD Hematology & Oncology - [address] [place] [address] 2 [place], [place] [address] [place] [phone] (Wo rk) Social History Tobacco Use Types [...] Hematology and Oncology Poppy Felton PA-C [address] [phone] (Wo rk) 05/30/2022 Office Visit Surgical Oncology Asa Cameron MD [address] [phone] (Wo rk) documented as of this encounter Visit Diagnoses Not on filedocumented in this encounter Care Teams Loading Machine Tool Setter Relationship Specialty Start Date End Date Filomena Ochoa PA-C PCP - General 03/02/18 2 [place] [address] documented as of this encounter
--- OUTSIDE RECORDS SUMMARY | 2021-11-29 00:22 | XMS_ITS | Encounter Summary ---
:1970 Author Organization [facility] Address [address] [place] [address] Care Team Providers Name Role Phone Filomena Ochoa PA-C Primary Care Provider [phone] Reason for Visit Reason Onset Date Comments Appointment Related 11/27/2021 Encounter Details Date Type Department Care Team Description 11/27/2021 Telephone [facility] Asa Cameron MD Appointment Related Surgical Oncology - [address] [place] [address], [address], Level 2 [place], [place] [address] [place] [address] [phone] (Wo rk) Social History Tobacco Use [...] Telephone Encounter - Mary Landers - 11/27/2021 1014 EDT received a call back from the patient - while on the phone with the patient she requested that we reschedule her visit with Dr. Cameron on: 11/28/2021 from: 2:45pm to 3:00pm - this appt has been changes - pt is aware Mary Landers 11/27/2021 10:15 documented in this encounter Plan of Treatment Upcoming Encounters Date Type Specialty Care Team Description 12/16/2021 Appointment Infusion Therapy 04/15/2022 Office Visit Hematology and Oncology Poppy Felton PA-C 111 [place] [facility], [facility] 2 [place], [place] [phone] (Wo bradford) 05/30/2022 Office Visit Surgical Oncology Asa Cameron MD 111 [place] [facility], [facility] 2 [place], [place] [phone] (Larissa felder) documented as of this encounter Visit Diagnoses Not on filedocumented in this encounter Care Teams Scientist Engineer Relationship Specialty Start Date End Date Filomena Ochoa PA-C PCP - General 03/02/18 2 [place] [address] documented as of this encounter
--- OUTSIDE RECORDS SUMMARY | 2021-11-29 00:22 | XMS_ITS | Encounter Summary ---
:1970 Author Organization [facility] Address [address] [place] [address] Care Team Providers Name Role Phone Filomena Ochoa PA-C Primary Care Provider [phone] Encounter Details Date Type Department Care Team Description 07/15/2021 Orders Only [facility] Cancer Center Hematology & Shameka Mckeon card player - [address] [address] Social History Tobacco Use Types [...] Hematology and Oncology Poppy Felton PA-C 111 [facility] 2 [place], [place] [phone] (Wo rk) 05/30/2022 Office Visit Surgical Oncology Asa Cameron MD [address] [phone] (Wo rk) documented as of this encounter Visit Diagnoses Not on filedocumented in this encounter Care Teams Aircraft Design Engineer Relationship Specialty Start Date End Date Filomena Ochoa PA-C PCP - General 03/02/18 2 [place] [phone] documented as of this encounter
--- OUTSIDE RECORDS SUMMARY | 2021-11-29 00:22 | XMS_ITS | Encounter Summary ---
:1970 Author Organization [facility] Address [address] [place] [address] Care Team Providers Name Role Phone Filomena Ochoa PA-C Primary Care Provider [phone] Reason for Visit Reason Onset Date Comments Follow-up 09/23/2021 Encounter Details Date Type Department Care Team Description 09/23/2021 Telephone [facility] Cancer Center Hematology & MckeonShameka mooney RN Follow-up Oncology - [facility] [address] [place] [address] Social History Tobacco Use Types [...] this encounter Miscellaneous Notes Telephone Encounter - Janelle cMkeon RN - 09/23/2021 0605 EDT ----- Message from Janelle Mckeon RN sent at 09/19/2021 16:35 EDT ----- May need to help her find places to get faslodex for Dec, Jan and Feb documented in this encounter Plan of Treatment Upcoming Encounters Date Type Specialty Care Team Description 12/16/2021 Appointment Infusion Therapy 04/15/2022 Office Visit Hematology and Oncology Poppy Felton PA-C 111 [facility], [facility] 2 [place], [place] [phone] (Wo bradford) 05/30/2022 Office Visit Surgical Oncology Asa Cameron MD 111 [facility], [facility] 2 [place], [place] [phone] (Wo rk) documented as of this encounter Visit Diagnoses Not on filedocumented in this encounter Care Teams Mirror Finishing Machine Operator Relationship Specialty Start Date End Date Filomena Ochoa PA-C PCP - General 03/02/18 2 [place] [address] documented as of this encounter
--- OUTSIDE RECORDS SUMMARY | 2021-11-29 00:22 | XMS_ITS | Encounter Summary ---
:1970 Author Organization [facility] Address [address] [place] [address] Care Team Providers Name Role Phone Filomena Ochoa PA-C Primary Care Provider [phone] Reason for Visit Reason Comments Follow-up Encounter Details Date Type Department Care Team Description 11/28/2021 Office Visit [facility] Asa Cameron MD Routine cancer follow-up visit (Primary Dx); Surgical Oncology - [address] [place] [address] al history of breast cancer [facility] [address] [place] [address] [place], [place] [phone] (Wo rk) Social History Tobacco Use [...] documented as of this encounter Progress Notes Asa Cameron MD - 11/28/2021 1500 EDT Jia Dow is a 51-year-old woman seen in follow-up for history of breast cancer. Patient had a right breast cancer in 2011. Treated with a total mastectomy with sentinel node biopsy and a prophylactic left total mastectomy with bilateral implant reconstructions. Tumor stage was T1CN0. Patient took tamoxifen for 4 and half years. In June 2019 she was found to have a recurrence of disease in the mastectomy flap on the right side in the upper aspect. This was a small area. She underwent staging work-up which showed no other disease. She underwent excision of that area, this was followed by radiation. She has been on Faslodex since then. She has been tolerating that quite well so far. Patient seenhere in routine follow-up she had an injury recently to her right shoulder which is limited her range of motion otherwise is no complaints. On exam the patient is well-appearing without scleral icterus. There is no palpable neck masses. There is no palpable cervical or supraclavicular lymph nodes. There is no nodules in the thyroid gland, no carotid bruits or JVD were noted. Lungs are clear to auscultation, heart is a regular rate and rhythm without S3-S4 murmurs. Breast exam reveals bilateral mastectomies with implant reconstructions noskin changes are noted on either side. Right side is no palpable abnormality suspicious for recurrence is no palpable lymph nodes in the right axilla. The left side has no palpable abnormality suspicious for recurrence is no palpable lymph nodes in the left axilla. There is no abdominal masses, no hepatosplenomegaly was noted. There is good range of motion of the left side she has decreased range of motion on the right side no edema of the upper extremities are noted in either side. Ultrasound evaluation of the right mastectomy site shows no evidence of recurrent disease. There is no abnormal lymph nodes in the internal mammary or in the axillary region. On the left side there is no evidence of recurrent disease in the mastectomy site there is no abnormal lymph nodes in the internal mammary or axillary region. Impression: Patient is without evidence of recurrent disease we will plan follow-up again myself in 6 months. documented in this encounter Plan of Treatment Upcoming Encounters Date Type Specialty Care Team Description 12/16/2021 Appointment Infusion Therapy 04/15/2022 Office Visit Hematology and Oncology Poppy Felton PA-C 111 [facility], [facility] 2 [place], [place] [phone] (Larissa felder) 05/30/2022 Office Visit Surgical Oncology Asa Cameron MD 111 [facility], [facility] 2 [place], [place] [phone] (Larissa felder) documented as of this encounter Visit Diagnoses Diagnosis Routine cancer follow-up visit - Primary Other follow-up examination Personal history of breast cancer Personal history of malignant neoplasm o f breast documented in this encounter Care Teams Machine Tool Operator Relationship Specialty Start Date End Date Filomena Ochoa PA-C PCP - General 03/02/18 2 [address] [facility] [place] [address] documented as of this encounter
--- OUTSIDE RECORDS SUMMARY | 2021-11-29 00:22 | XMS_ITS | Encounter Summary ---
:1970 Author Organization [facility] Address [address] [place] [address] Care Team Providers Name Role Phone Filomena Ochoa PA-C Primary Care Provider [phone] Reason for Visit Reason Onset Date Comments Medications Refill 08/07/2021 Encounter Details Date Type Department Care Team Description 08/07/2021 Refill [facility] Adult Nova Ochoa, Medications Refill Primary Care - Hallie GUDINO [address] [place] [address] [place], [place] [phone] (Wo rk) Social History Tobacco Use [...] Telephone Encounter - Filomena Ochoa PA-C - 08/08/2021 0807 EDT eprscribed elephone Encounter - Susana Starr RN - 08/07/2021 1622 EDT Medication(s) Requested: vyvance Preferred Pharmacy: [facility] Is patient out of medication? Unknown Last Refill Date: 05/22, due 08/14 but it is a mail order pharmacy Last Visit Date with Ordering Provider: 05/08/21 Next Non-Acute Visit Date Scheduled with Care Team: No. Chronic controlled medication yes Vpms check No Prescription agreement No Patient due for refill yes Is there a plan for tapering of medication noted in chart? no SUSANA STARR RN 08/07/2021 16:22 elephone Encounter - Susana Starr RN - 08/07/2021 1620 EDT From: Jia Dow To: Office of Filomena Ochoa PA-C Sent: 08/07/2021 12:06 EDT Subject: Medication Renewal Request Refills have been requested for the following medications: lisdexamfetamine (VYVANSE) 40 mg capsule [Filomena Ochoa PA-C] Patient Comment: Please renew this 3 month prescription abby. Thank you! Preferred pharmacy: [facility] - [address] documented in this encounter Plan of Treatment Upcoming Encounters Date Type Specialty Care Team Description 12/16/2021 Appointment Infusion Therapy 04/15/2022 Office Visit Hematology and Oncology Poppy Felton PA-C [address] [phone] (Wo rk) 05/30/2022 Office Visit Surgical Oncology Asa Cameron MD [address] [phone] (Wo rk) documented as of this encounter Visit Diagnoses Not on filedocumented in this encounter Discontinued Medications Medication Sig Discontinue Reason Start Date End Date lisdexamfetamine (VYVANSE) Take 1 capsule by Reorder 2 08/07/2021 40 mg capsule mouth every morning for 84 days. Daily Max: 40 mg documented as of this encounter Care Teams Graduate Studies Dean Relationship Specialty Start Date End Date Filomena Ochoa PA-C PCP - General 03/02/18 2 [place] [phone] documented as of this encounter
--- OUTSIDE RECORDS SUMMARY | 2021-11-29 00:22 | XMS_ITS | Encounter Summary ---
:1970 Author Organization [facility] Address [address] [place] [address] Care Team Providers Name Role Phone Filomena Ochoa PA-C Primary Care Provider [phone] Encounter Details Date Type Department Care Team Description 08/10/2021 Orders Only [facility] Cancer Center Jessi Pleitez MD PhD Hematology & Oncology - [address] [place] [address] 2 [place], [place] [address] [place] [phone] (Wo rk) Social History Tobacco Use Types [...] Hematology and Oncology Poppy Felton PA-C [address] [phone] (Wo rk) 05/30/2022 Office Visit Surgical Oncology Asa Cameron MD [address] [phone] (Wo rk) documented as of this encounter Visit Diagnoses Not on filedocumented in this encounter Care Teams Ct Scan Tech Relationship Specialty Start Date End Date Filomena Ochoa PA-C PCP - General 03/02/18 2 [place] [address] documented as of this encounter
--- OUTSIDE RECORDS SUMMARY | 2021-11-29 00:22 | XMS_ITS | Clinical Summary ---
:1970 Author Organization [facility] Address [address] [place] [address] Care Team Providers Name Role Phone Filomena Ochoa PA-C Primary Care Provider [phone] Allergies No known active allergies Medications Medication Sig Dispensed Refills Start End Date Status Date fluticasone Instill 100 0 Active propionate (FLONASE) mcg into both 50 mcg/actuation nostrils as nasal spray needed. UNABLE TO FIND as needed. 0 Acti ve Med Name: [facility] melatonin 10 mg Take by mouth 0 Active tablet at bedtime. LORazepam (ATIVAN) Take 1 Tablet 10 Tablet 0 Active 0.5 mg tablet by mouth at 2 bedtime as needed for Anxiety or Sleep. Daily Max: 0.5 mg ergocalciferol, Take by 0 Acti ve vitamin D2, (VITAMIN mouth. D ORAL) traZODone (DESYREL) Take 1.5 135 Tablet 3 Active 100 mg tablet Tablets by 2 mouth at bedtime. buPROPion Take 1 Tablet 90 Tablet 3 Active (WELLBUTRIN XL) 300 by mouth 2 mg XL daily. tabletIndications: Depression, unspecified depression type Miscellaneous CS-TESTOSTERO 1 Each 3 Ac tive Medication - See NE 3 MG/GM 2 Admin Cream InstructionsIndicati Dispenser ons: Recurrent Directions: cancer of right Apply 1 gram breast (HCC-CMS) (4 clicks) ([facility]) every day. Dispense 90 grams with 3 refills lisdexamfetamine Take 1 84 capsule 0 02/11/20 Ac tive (VYVANSE) 40 mg capsule by 2 22 capsule mouth every morning for 84 days. Daily Max: 40 mg lisdexamfetamine Take 1 84 capsule 0 11/19/19 Di scontinued (VYVANSE) 40 mg capsule by 2 22 (Re order) capsule mouth every morning for 84 days. Daily Max: 40 mg Active Problems Patient Care Coordination Note Formatting of this note might be differe nt from the original. Per patient communication sent via [email or web address] on 03/29/19: [facility] pathologists Dr. Elyssa Renner and Dr. Marion Felton to be added to my care team so that they are able to anitha june access all of my medical information through the [employer] and/or any other system for accessing my medical information. Problem Noted Date Skipped heart beats 08/25/2020 Elevated troponin 08/25/2020 Asthma 06/02/2019 Recurrent cancer of right breast ([facility]) 04/14/2019 Cancer Staging: Clinical: cT1 - Unsigned Radon exposure 12/26/2018 S/P bilateral mastectomy 09/17/2011 Overview: Overview: S/P Bilateral mastectomy Seasonal allergies 09/17/2011 Overview: Overview: Seasonal allergy Malignant neoplasm of breast 08/04/2011 Cancer Staging: Clinical: Stage IIA (T2, N0, cM0) - Signed by Cristina Avitia MD on 08/04/2011 Pathologic: Stage IA (T1c, N0, cM0) - Si gned by Asa Cameron MD on 02/20/2014 Episodic mood disorder ([facility]) 09/09/2010 Overview: ICD10 Update Auto Replacement Depression 12/18/2009 ADHD (attention deficit hyperactivity disorder) 2009 Resolved Problems Problem Noted Date Resolved Date Personal history of malignant neoplasm of breast 02/13/2015 08/04/2016 Encounters Date Type Specialty Care Team Description 11/28/2021 Ancillary Procedure Surgical Oncology Arr ived 11/28/2021 Office Visit Surgical Oncology Asa Cameron MD Rout ine cancer follow-up visit (Primary Dx); Personal histor y of breast cancer 11/28/2021 Travel 11/27/2021 Telephone Surgical Oncology Asa Cameron MD Appo intment Related 11/27/2021 Telephone Surgical Oncology sAa Cameron MD Appo intment Related 11/18/2021 Refill General Internal Filomena Ochoa Refill Medicine SHAHAB Wolf 10/18/2021 Hospital Encounter Infusion Therapy Recur rent cancer of right breast (HCC-CMS) (HCC) (Primary Dx) 10/10/2021 Orders Only Hematology and Jessi Pleitez MD Oncology PhD 09/23/2021 Telephone Hematology and Janelle Mckeon, Follow-up street department dispatcher 09/19/2021 Phlebotomy Only Clinical Metal Bonder, Acc Recurrent c ancer Laboratory Phlebotomy of right breast (HCC-CMS) (HCC) 09/19/2021 Hospital Encounter Infusion Therapy Recur rent cancer of right breast (HCC-CMS) (HCC) (Primary Dx) 09/19/2021 Telemedicine Hematology and Jessi Pleitez MD Recurren t cancer Oncology PhD of right breast (HCC-CMS) (HCC) (Primary Dx) from Last 3 Months Immunizations Name Administration Dates Next Due Covid-19 mRNA Vaccine (MODERNA COVID-19) PF 0.5 ml IM 2020, 04/26/2020 (12 yrs+) Influenza Vaccine Quad (AFLURIA) PF 0.5 ml IM (3 02/11/2016 yrs+) Td 02/23/2005 Tdap (BOOSTRIX) Vaccine =>7YO IM 09/25/2017 Surgical History Surgery Date Site/Laterality Comments HAND TENDON SURGERY MASTECTOMY BREAST RECONSTRUCTION Medical History Medical History Date Comments Breast cancer (HCC-CMS) (HCC) 07/2011 Environmental allergies Seborrheic dermatitis 12/20/2019 [facility] Complication of anesthesia N after gener al anesthesia Mental disorder Family History Medical History Relation Name Comments Cancer Brother thyroid Colon Polyps Brother Thyroid Disease Brother Thryoid Cancer Arrhythmia Father Afib Colon Polyps Father Stroke Father debilitated, reno t Cancer Maternal Grandmother breast, pos tmenopausal Pacemaker Mother Thyroid Disease Mother Atrial fibrillation Paternal Grandmother Stroke Paternal Grandmother Breast Cancer Neg Hx Colon Cancer Neg Hx Endometrial Cancer Neg Hx Esophageal Cancer Neg Hx Ovarian Cancer Neg Hx Pancreatic Cancer Neg Hx Rectal Cancer Neg Hx Stomach Cancer Neg Hx Relation Name Status Comments Brother Father Alive Maternal Grandmother Mother Alive Paternal Grandmother Social History Tobacco Use Types Packs/Day Years Used Date Never Smoker Smokeless Tobacco: Never Used Tobacco Cessation: Counseling Given: No Alcohol Use Standard Drinks/Week Comments Yes 2 [...] was confirmed or suspected to have Coronavirus/COVID-19? Last Filed Vital Signs Vital Sign Reading Time Taken Comments Blood Pressure 107/58 10/18/2021 0948 EDT Pulse 58 10/18/2021 0948 EDT Temperature 36.3 ??C (97.3 ??F) 10/18/2021 0948 EDT Respiratory Rate 16 10/18/2021 0948 EDT Oxygen Saturation 99% 10/18/2021 0948 EDT Inhaled Oxygen Concentration - - Weight 64.4 kg (142 lb) 10/18/2021 0948 EDT Height 170 cm (5' 6.93) 06/12/2021 1016 EDT Body Mass Index 22.29 06/12/2021 1016 EDT Plan of Treatment Upcoming Encounters Date Type Specialty Care Team Description 12/16/2021 Appointment Infusion Therapy 04/15/2022 Office Visit Hematology and Oncology Poppy Felton, PAChuyC [address] [facility], [address] [place], [place] [phone] (Wo rk) 05/30/2022 Office Visit Surgical Oncology Asa Cameron MD [address] [facility], [facility] [place], [place] [phone] (Wo rk) Health Maintenance Due Date Last Done Comments Hepatitis C Screen 1970 Social Determinants Of Health 1970 (SDOH) Barium Enema (Colon Cancer 2017 Screening) Fecal Blood Test (Colon 2017 Cancer Screening) Fecal DNA (Colon Cancer 2017 Screening) Sigmoidoscopy (Colon Cancer 2017 Screening) COVID-19 Vaccine (4 - Booster 02/27/2021 01/02/2021, for Moderna series) 05/24/2020, 04/26/2020 Preventive Care Visit 08/21/2021 08/22/2019, 08/22/2019 Behavioral Health Screen 05/08/2022 05/08/2021, 05/08/2021, 02/22/2014 Cervical Cancer Screening 08/21/2022 08/22/2019, 10/22/2015, 10/22/2011 Colonoscopy (Colon Cancer 09/11/2023 09/10/2020 Screening) Colorectal Cancer Screening 09/11/2023 Lipid Profile Screening 10/18/2024 10/19/2019, (Cholesterol) 08/19/2012 Tetanus (Adult) Immunization 09/26/2027 09/25/2017, 02/23/2005 HIV Screening Completed 12/13/2007 Pertussis (Adult) Completed 09/25/2017 Immunization Asthma Action Plan Discontinued Lung Function Test Discontinued (Spirometry) Pneumococcal Immunization Aged Out No shai sudhakar eligible based on patient 's age to complete this topic Implants Implanted Type Area Contract Project Manager Device Identifier Shelf Exp iration Model / Date Serial / L ot Bilateral Silicone Breast Implants Procedures Procedure Name Priority Date/Time Associated Comments Diagnosis BCC US BREAST - BREAST Routine 11/28/2021 16:17 R esults for this CARE CENTER ONLY EDT procedure a re in the results section. COMPREHENSIVE STAT 10/18/2021 9:52 Recurrent cancer of Resu lts for this METABOLIC PANEL EDT right breast procedure ar e in (ONCOLOGY USE ONLY-INC ([facility]) ([facility]) th e results MG) section. COMPLETE BLOOD COUNT STAT 10/18/2021 9:52 Recurrent cancer of Results for this AND DIFFERENTIAL EDT right breast procedure a re in ([facility]) ([facility]) the results section. VITAMIN D (25,[place]) Routine 09/19/2021 16:28 Recurrent cancer of Results for this EDT right breast procedure are i n ([facility]) ([facility]) the results section. COMPREHENSIVE STAT 09/19/2021 16:28 Recurrent cancer of Res ults for this METABOLIC PANEL EDT right breast procedure ar e in (ONCOLOGY USE ONLY-INC ([facility]) ([facility]) th e results MG) section. COMPLETE BLOOD COUNT STAT 09/19/2021 16:28 Recurrent cancer of Results for this AND DIFFERENTIAL EDT right breast procedure a re in ([facility]) ([facility]) the results section. from Last 3 Months Results [facility] BREAST - BREAST CARE CENTER ONLY (11/28/2021 16:17 EDT) Specimen Narrative [facility] POINT OF CARE - 11/28/2021 16:17 E DT This is a non-reportable exam. Performing Organization Address City/State/ZIP Code Phon e Number [facility] POINT OF CARE (ABNORMAL) COMPREHENSIVE METABOLIC PANEL (ONCOLOGY USE ONLY-INC MG) (10/18/2021 9:52 EDT)Only the most recent of2 resultswithin the time period is included. Pathologist Sig nature Sodium 141 136 - 145 [facility] mmol/L LABORATORY SERVICES Potassium 4.3 3.5 - 5.0 [facility] mmol/L LABORATORY SERVICES Chloride 104 96 - 110 mmol/L [facility] LABOR[facility]ORY SERVICES CO2 Total 28 22 - 32 mmol/L [facility] SERVICES Glucose 55 (L) 70 - 100 mg/dL [facility] SERVICES BUN 25 10 - 26 mg/dL [facility] SERVICES Creatinine 0.93 0.52 - 1.04 [facility] mg/dL LABORATORY SERVICES eGFR 75 >60 [facility] mL/min/1.73m2 LABORATORY SERVICES Total Protein 6.4 6.3 - 8.2 g/dL [facility] LABOR[facility] SERVICES Albumin 4.1 3.4 - 4.9 g/dL [facility]OR[facility] SERVICES Alkaline Phosphatase 37 (L) 38 - 126 U/L [facility] SERVICES AST 24 15 - 46 U/L [facility] SERVICES ALT 18 <35 U/L [facility] SERVICES Bilirubin, Total <0.5 <1.4 mg/dL [facility] SERVICES Calcium 9.7 8.5 - 10.5 [facility] mg/dL LABORATORY SERVICES Magnesium 2.1 1.7 - 2.8 mg/dL [facility] LABOR[facility] SERVICES Albumin/Globulin Ratio 1.8 1.0 - 2.5 [facility] SERVICES Anion Gap 9 5 - 14 [facility] LABORATORY SERVICES Specimen Blood - Venous blood (substance) Performing Organization Address City/State/ZIP Code Phon e Number [facility] LABORATORY [address] [place] [address] SERVICES (ABNORMAL) COMPLETE BLOOD COUNT AND DIFFERENTIAL (10/18/2021 9:52 EDT)Only the most recent of2 resultswithin the time period is included. Pathologist Sig nature WBC 5.46 4.00 - 12.40 [facility] LABORATORY SERVICES RBC 4.17 3.86 - 5.04 [facility] LABORATORY SERVICES Hemoglobin 13.2 11.6 - 15.2 [facility] gm/dL LABORATORY SERVICES HCT 38.6 34.9 - 44.4 % [facility] LABORATORY SERVICES MCV 93 81 - 98 fl [facility] LABORATORY SERVICES MCH 31.7 26.7 - 33.3 pg [facility] LABORATORY SERVICES MCHC 34.2 32.1 - 35.9 [facility] gm/dL LABORATORY SERVICES RDW-CV 11.9 <14.7 % [facility] LABORATORY SERVICES RDW-SD 40.5 <50.4 fl [facility] LABORATORY SERVICES PLT 229 141 - 377 /[facility] LABORATORY SERVICES MPV 8.5 (L) 9.5 - 12.7 fl [facility] LABORATORY SERVICES Neutrophils 51.7 % [facility] LABORATORY SERVICES Lymphocytes 36.8 % [facility] LABORATORY SERVICES Monocytes 9.3 % [facility]ORATORY SERVICES Eosinophils 1.3 % [facility] LABORATORY SERVICES Basophils 0.7 % [facility] LABORATORY SERVICES Immature Grans 0.2 % [facility] LABORATORY SERVICES Absolute Neutrophils 2.82 2.20 - 8.85 [facility] LABORATORY SERVICES Absolute Lymphocytes 2.01 1.09 - 3.30 [facility] K/[facility] LABORATORY SERVICES Absolute Monocytes 0.51 0.10 - 0.80 [facility] K/[facility] LABORATORY SERVICES Absolute Eosinophils 0.07 0.03 - 0.61 [facility] K/[facility] LABORATORY SERVICES Absolute Basophils 0.04 0.01 - 0.11 [facility] K/[facility] LABORATORY SERVICES Absolute Immature 0.01 0.00 - 0.06 [facility] Grans /[facility] LABORATORY SERVICES Type of Differential: Auto [facility] LABORATORY SERVICES Specimen Blood - Venous blood (substance) Performing Organization Address [facility] Phon e Number [facility] LABORATORY [address] [place] [address] SERVICES VITAMIN D (25,[place]) (09/19/2021 16:28 EDT) 25OH Vitamin D 37 30 - 100 [facility] Comment: ng/mL CENTER LABORATORY Vitamin D 25,[place] Interpretive Ranges: SERV ICES Deficiency: ??<10.0 ng/mL Insufficiency: ??10.0 - 30.0 ng/mL Sufficiency: ??30.0 - 100.0 ng/mL Toxicity: ??>100.0 ng/mL Specimen Blood - Venous blood (substance) Performing Organization Address [facility] Phon e Number [facility] LABORATORY [address] [place] [address] SERVICES from Last 3 Months Insurance Payer Benefit Plan / Subscriber ID Effective Dates Phone Addre ss Type Group SEDRICK BROUSSARD [id number] 2018-Present [address] [address] [place] [address] [place] [address] Jia Dow Ester Personal/Family Self 1970 [address] (Home) [place] [address] Jia Dow Ester Personal/Family Self 1970 [address] (Home) [place] [address] Advance Directives For more information, please contact: [phone] Documents on File Type Date Recorded Patient I&C Tech Explanati on Advance Directives and Living Will Advance Directive 09/04/2020 8:26 Advance Direct axel for Health Care-Sign ed 2012-07-28 Latest Code Status on File Code Status Date Activated Date Inactivated Comments Full Code 08/25/2020 12:19 08/25/2020 20:08 Reason for decision includes: Full code consistent with over all plan of care Who participated in the discussion? Patient Full Code 08/14/2011 23:40 08/16/2011 17:30 Care Teams [employer] Internship Relationship Specialty Start Date End Date Filomena Ochoa PA-C PCP - General 03/02/18 [address] [place] [address]
--- OUTSIDE RECORDS SUMMARY | 2021-11-29 00:22 | XMS_ITS | Encounter Summary ---
:1970 Author Organization [facility] Address [address] [place] [address] Care Team Providers Name Role Phone Filomena Ochoa PA-C Primary Care Provider [phone] Encounter Details Date Type Department Care Team Description 11/28/2021 Travel Social History Tobacco Use Types Packs/Day Years [...] Hematology and Oncology Poppy Felton PA-C [address] [phone] (Wo rk) 05/30/2022 Office Visit Surgical Oncology Asa Cameron MD [address] [phone] (Wo rk) documented as of this encounter Visit Diagnoses Not on filedocumented in this encounter Care Teams Casino Controller Relationship Specialty Start Date End Date Filomena Ochoa PA-C PCP - General 03/02/[address] [place] [phone] documented as of this encounter
--- OUTSIDE RECORDS SUMMARY | 2021-11-29 00:22 | XMS_ITS | Encounter Summary ---
:1970 Author Organization [facility] Address [address] [place] [address] Care Team Providers Name Role Phone Filomena Ochoa PA-C Primary Care Provider [phone] Reason for Visit Reason Comments Injections Prior Authorization (Routine/Next Available) - Closed Specialty Diagnoses / Procedures Referred By Contact Refer red To Contact Hematology and Diagnoses Malignant neoplasm of female breast, unspecified estrogen receptor status, unspecified laterality, unspecified site of breast ([facility]) (HCC) Jessi Pleitez MD PhD Ep2 Hem/Onc Oncology [address] [facility] [address] [place], [place] [address] [place] [address], [address] [place], [place] Fax: [phone] Referral ID Status Reason Start Date Expiration Date Visits Requ ested Visits Authorized [id number] Closed Other 02/06/2020 09/11/2021 15 15 Encounter Details Date Type Department Care Team Description 07/19/2021 Hospital Encounter [facility] Recu rrent cancer of Hematology & Oncology right breast ([facility]) [facility] ([facility]) (Primary Dx) [address] [place] [address] Social History Tobacco Use Types Packs/Day Years [...] Sign Reading Time Taken Comments Blood Pressure 114/65 07/19/2021 1601 EDT Pulse 60 07/19/2021 1601 EDT Temperature 36.9 ??C (98.4 ??F) 07/19/2021 1601 EDT Respiratory Rate 12 07/19/2021 1601 EDT Oxygen Saturation 100% 07/19/2021 1601 EDT Inhaled Oxygen Concentration - - Weight 64.5 kg (142 lb 1.6 oz) 07/19/2021 1601 EDT Height - - Body Mass Index 22.3 06/12/2021 1016 EDT documented in this encounter [...] Care documented in this encounter Progress Notes Kendra Kenny RN - 07/19/2021 1600 EDT Patient presents to clinic today for cycle # 15, day # 1 of Faslodex treatment plan. Patient states she has been having discomfort in right buttock since receiving an injection approximately 2 months ago; it is tolerable but bothers her most when she is running. Faslodex 500 mg IM injection administered lying down in bed to bilateral gluteal muscles (250 mg X 2); see MAR. Patient prefers lying down and slow injection time (over 2 min), this is more comfortablefor her. No complications at sites, dressings applied. Pt d/c from clinic in stable condition. Patient tolerating treatment at this time with no signs of reaction or side effects. Patient education: Patient educated on all medications administered today. Patient expressed understanding of education provided and no barriers identified I was supervised by Dr. Allred who was present and immediately available in the office suite. KENDRA KENNY RN 07/19/2021 15:47 documented in this encounter Miscellaneous Notes Addendum Note - My Benz - 07/19/2021 1600 EDT Encounter addended by: My Benz on: 07/26/2021 8:29 Actions taken: Charge Capture section accepted ddendum Note - My Benz - 07/19/2021 1600 EDT Encounter addended by: My Benz on: 07/26/2021 8:17 Actions taken: Charge Capture section accepted documented in this encounter Plan of Treatment Upcoming Encounters Date Type Specialty Care Team Description 12/16/2021 Appointment Infusion Therapy 04/15/2022 Office Visit Hematology and Oncology Poppy Felton, SHAHAB [address] [phone] (Wo rk) 05/30/2022 Office Visit Surgical Oncology Asa Cameron MD [address] [phone] (Wo rk) documented as of this encounter Visit Diagnoses Diagnosis Recurrent cancer of right breast (HCC-CM S) (HCC) - Primary documented in this encounter Administered Medications Inactive Administered Medications - up to 3 most recent administrations Medication Order MAR Action Action Date Dose Rate Site fulvestrant (FASLODEX) injection 500 Given 07/19/2021 16:02 EDT 500 mg mg 500 mg, intramuscular, NOW X1, 1 dose, On Thu07/19/21 at 1615, Routine documented in this encounter Orders Medications Ordered That Might Not Have Count Last Ord ered Date First Ordered Date Been Administered fulvestrant (FASLODEX) injection 500 mg 1 07/20/19 22 Nursing Count Last Ordered Date First Ordered Date INFORMED CONSENT 1 07/19/2021 Appointment Requests Count Last Ordered Date First Ord ered Date ONCBCN INFUSION APPOINTMENT REQUEST - 1 07/19/2021 CALCULATED documented in this encounter Care Teams Oim Architect Relationship Specialty Start Date End Date Filomena Ochoa PA-C PCP - General 03/02/18 [address] [place] [phone] documented as of this encounter
--- OUTSIDE RECORDS SUMMARY | 2021-11-29 00:22 | XMS_ITS | Encounter Summary ---
:1970 Author Organization [facility] Address [address] [facility] [place] [address] Care Team Providers Name Role Phone Filomena Ochoa PA-C Primary Care Provider [phone] Encounter Details Date Type Department Care Team Description 09/19/2021 Phlebotomy Only [facility] ED Center 2 Tax Record Clerk, Acc Recurr ent cancer of Phlebotomy Phlebotomy right breast [address] [facility] ([facility]) ([facility]) [place] [address] Social History Tobacco Use Types [...] Hematology and Oncology Poppy Felton PA-C [address] [phone] (Wo rk) 05/30/2022 Office Visit Surgical Oncology Asa Cameron MD [address] [phone] (Wo rk) documented as of this encounter Procedures Procedure Name Priority Date/Time Associated Comments Diagnosis COMPREHENSIVE STAT 09/19/2021 16:28 Recurrent cancer of Res ults for this METABOLIC PANEL EDT right breast procedure ar e in (ONCOLOGY USE ONLY-INC ([facility]) ([facility]) th e results MG) section. VITAMIN D (25,[place]) Routine 09/19/2021 16:28 Recurrent cancer of Results for this EDT right breast procedure are i n ([facility]) ([facility]) the results section. COMPLETE BLOOD COUNT STAT 09/19/2021 16:28 Recurrent cancer of Results for this AND DIFFERENTIAL EDT right breast procedure a re in ([facility]) ([facility]) the results section. documented in this encounter Results VITAMIN D (25,[place]) (09/19/2021 16:28 EDT) 25OH Vitamin D 37 30 - 100 [facility] Tot Comment: ng/mL [facility] Vitamin D 25,OH Interpretive Ranges: SERV ICES Deficiency: ??<10.0 ng/mL Insufficiency: ??10.0 - 30.0 ng/mL Sufficiency: ??30.0 - 100.0 ng/mL Toxicity: ??>100.0 ng/mL Specimen Blood - Venous blood (substance) Performing Organization Address City/State/ZIP Code Phon e Number [facility] [address] [place] [address] SERVICES COMPREHENSIVE METABOLIC PANEL (ONCOLOGY USE ONLY-INC MG) (09/19/2021 16:28 EDT) Pathologist Sig nature Sodium 136 136 - 145 mmol/L [facility] SERVICES Potassium 4.0 3.5 - 5.0 mmol/L [facility] SERVICES Chloride 101 96 - 110 mmol/L [facility] SERVICES CO2 Total 30 22 - 32 mmol/L [facility] Glucose 92 70 - 100 mg/dL [facility] BUN 24 10 - 26 mg/dL [facility] SERVICES Creatinine 0.91 0.52 - 1.04 [facility] mg/dL LABORATORY SERVICES eGFR 77 >60 [facility] mL/min/1.73m2 LABORATORY SERVICES Total Protein 6.5 6.3 - 8.2 g/dL [facility] SERVICES Albumin 4.1 3.4 - 4.9 g/dL [facility] SERVICES Alkaline Phosphatase 40 38 - 126 U/L [facility] AST 25 15 - 46 U/L [facility] ALT 19 <35 U/L [facility] SERVICES Bilirubin, Total <0.5 <1.4 mg/dL [facility] SERVICES Calcium 9.8 8.5 - 10.5 mg/dL [facility] SERVICES Magnesium 2.1 1.7 - 2.8 mg/dL [facility] SERVICES Albumin/Globulin Ratio 1.7 1.0 - 2.5 [facility] Anion Gap 5 5 - 14 [facility] SERVICES Specimen Blood - Venous blood (substance) Performing Organization Address City/[facility] Code Phon e Number [facility] [address] [place] [address] SERVICES (ABNORMAL) COMPLETE BLOOD COUNT AND DIFFERENTIAL (09/19/2021 16:28 EDT) Pathologist Sig nature WBC 6.02 4.00 - 12.40 [facility] K/[facility] LABORATORY SERVICES RBC 4.13 3.86 - 5.04 [facility] M/[facility] LABORATORY SERVICES Hemoglobin 13.1 11.6 - 15.2 [facility] gm/dL LABORATORY SERVICES HCT 39.0 34.9 - 44.4 % [facility] SERVICES MCV 94 81 - 98 fl [facility] SERVICES MCH 31.7 26.7 - 33.3 pg [facility] SERVICES MCHC 33.6 32.1 - 35.9 [facility] gm/dL LABORATORY SERVICES RDW-CV 12.5 <14.7 % [facility] SERVICES RDW-SD 43.2 <50.4 fl [facility] SERVICES PLT 217 141 - 377 K/[facility] LABORATORY SERVICES MPV 8.6 (L) 9.5 - 12.7 fl [facility] SERVICES Neutrophils 54.8 % [facility] SERVICES Lymphocytes 35.0 % [facility] SERVICES Monocytes 8.1 % [facility] SERVICES Eosinophils 1.2 % [facility] SERVICES Basophils 0.7 % [facility] SERVICES Immature Grans 0.2 % [facility] SERVICES Absolute Neutrophils 3.30 2.20 - 8.85 [facility] LABORATORY SERVICES Absolute Lymphocytes 2.11 1.09 - 3.30 [facility] LABORATORY SERVICES Absolute Monocytes 0.49 0.10 - 0.80 [facility] K/[facility] LABORATORY SERVICES Absolute Eosinophils 0.07 0.03 - 0.61 [facility] LABORATORY SERVICES Absolute Basophils 0.04 0.01 - 0.11 [facility] LABORATORY SERVICES Absolute Immature 0.01 0.00 - 0.06 [facility] Grans /[facility] LABORATORY SERVICES Type of Differential: Auto [facility] SERVICES Specimen Blood - Venous blood (substance) Performing Organization Address City/State/ZIP Code Phon e Number [facility] [address] [place] [address] SERVICES documented in this encounter Visit Diagnoses Diagnosis Recurrent cancer of right breast (HCC-CM S) (HCC) documented in this encounter Care Teams Installation Drafter Relationship Specialty Start Date End Date Filomena Ochoa PA-C PCP - General 03/02/18 2 [place] [phone] documented as of this encounter
--- OUTSIDE RECORDS SUMMARY | 2021-11-29 00:22 | XMS_ITS | Encounter Summary ---
:1970 Author Organization [facility] Address [address] [place] [address] Care Team Providers Name Role Phone Filomena Ochoa PA-C Primary Care Provider [phone] Reason for Visit Reason Comments Chemotherapy And Provider Visit Episode Based Medications (Routine) - Authorized Specialty Diagnoses / Procedures Referred By Contact Refer red To Contact Diagnoses Recurrent cancer of right breast ([facility]) ([facility]) Jessi Pleitez MD PhD Ep2 Infusion [address] [place] [address] [address], Level [address] [place] [phone] Referral ID Status Reason Start Date Expiration Date Visits V isits Requested Authorized [id number] Authorized 09/19/2021 04/03/2022 4 4 Encounter Details Date Type Department Care Team Description 09/19/2021 Hospital Encounter [facility] Cancer Center Recu rrent cancer of Hematology & Oncology right breast (HCC-CMS) - [facility] ([facility]) (Primary Dx) [address] [place], [place] [address] Social History Tobacco Use Types Packs/Day Years [...] encounter Progress Notes Kendra Kenny RN - 09/19/2021 1630 EDT Patient presents to clinic today for cycle # 17, day # 1 of Faslodex treatment plan. Seen by Dr. Pleitez today and labs drawn. Jia states she still has some discomfort in the right buttock with exercise, but remains stable, has not worsened. 500 mg IM injection administered to bilateral [...] in the office suite. KENDRA KENNY RN 09/19/2021 16:23 documented in this encounter Miscellaneous Notes Addendum Note - Lianna Grimes - 09/19/2021 1630 EDT Encounter addended by: Lianna Grimes on: 09/25/2021 16:25 Actions taken: Charge Capture section accepted documented in this encounter Plan of Treatment Upcoming Encounters Date Type Specialty Care Team Description 12/16/2021 Appointment Infusion Therapy 04/15/2022 Office Visit Hematology and Oncology Poppy Felton PA-C [address] [facility] 2 [place], [place] [phone] (Wo rk) 05/30/2022 Office Visit Surgical Oncology Asa Cameron MD [address] [facility] 2 [place] [phone] (Wo rk) Scheduled Orders Name Type Priority Associated Diagnoses Order S chedule COMPREHENSIVE METABOLIC Lab STAT Recurrent cancer of 12 Occurrences starting PANEL (ONCOLOGY USE right breast (HCC-[facility] ) 09/19/2021 until ONLY-INC MG) ([facility]) 09/19/2022, 2 c ompleted documented as of this encounter Results (ABNORMAL) COMPREHENSIVE METABOLIC PANEL (ONCOLOGY USE ONLY-INC MG) (10/18/2021 9:52 EDT) Pathologist Health system Sodium 141 136 - 145 [facility] mmol/L LABORATORY SERVICES Potassium 4.3 3.5 - 5.0 [facility] mmol/L LABORATORY SERVICES Chloride 104 96 - 110 mmol/L [facility]ORY SERVICES CO2 Total 28 22 - 32 mmol/L [facility] SERVICES Glucose 55 (L) 70 - 100 mg/dL [facility]ORY SERVICES BUN 25 10 - 26 mg/dL [facility]ORY SERVICES Creatinine 0.93 0.52 - 1.04 [facility] mg/dL LABORATORY SERVICES eGFR 75 >60 [facility] mL/min/1.73m2 LABORATORY SERVICES Total Protein 6.4 6.3 - 8.2 g/dL [facility]ORATORY SERVICES Albumin 4.1 3.4 - 4.9 g/dL [facility]ORY SERVICES Alkaline Phosphatase 37 (L) 38 - 126 U/L [facility]ATORY SERVICES AST 24 15 - 46 U/L [facility]ORY SERVICES ALT 18 <35 U/L [facility] SERVICES Bilirubin, Total <0.5 <1.4 mg/dL [facility]ORY SERVICES Calcium 9.7 8.5 - 10.5 [facility] mg/dL LABORATORY SERVICES Magnesium 2.1 1.7 - 2.8 mg/dL [facility]ORATORY SERVICES Albumin/Globulin Ratio 1.8 1.0 - 2.5 [facility]OR[facility]ORY SERVICES Anion Gap 9 5 - 14 [facility] SERVICES Specimen Blood - Venous blood (substance) Performing Organization Address [facility] Phon e Number [facility] [address] [place] [address] SERVICES COMPREHENSIVE METABOLIC PANEL (ONCOLOGY USE ONLY-INC MG) (09/19/2021 16:28 EDT) Pathologist Sig nature Sodium 136 136 - 145 mmol/L [facility]ORY SERVICES Potassium 4.0 3.5 - 5.0 mmol/L [facility]ORY SERVICES Chloride 101 96 - 110 mmol/L [facility] LAB[facility]ORY SERVICES CO2 Total 30 22 - 32 mmol/L [facility] LABORATORY SERVICES Glucose 92 70 - 100 mg/dL [facility]ORATORY SERVICES BUN 24 10 - 26 mg/dL [facility]ORATORY SERVICES Creatinine 0.91 0.52 - 1.04 [facility] mg/dL LABORATORY SERVICES eGFR 77 >60 [facility] mL/min/1.73m2 LABORATORY SERVICES Total Protein 6.5 6.3 - 8.2 g/dL [facility]ORATORY SERVICES Albumin 4.1 3.4 - 4.9 g/dL [facility] LABORATORY SERVICES Alkaline Phosphatase 40 38 - 126 U/L [facility]ATORY SERVICES AST 25 15 - 46 U/L [facility]ORATORY SERVICES ALT 19 <35 U/L [facility]ATORY SERVICES Bilirubin, Total <0.5 <1.4 mg/dL [facility]ORY SERVICES Calcium 9.8 8.5 - 10.5 mg/dL [facility]ORY SERVICES Magnesium 2.1 1.7 - 2.8 mg/dL [facility]ORY SERVICES Albumin/Globulin Ratio 1.7 1.0 - 2.5 [facility]ORY SERVICES Anion Gap 5 5 - 14 [facility]ORY SERVICES Specimen Blood - Venous blood (substance) Performing Organization Address [facility] Phon e Number [facility] [address] [place] [address] SERVICES documented in this encounter Visit Diagnoses Diagnosis Recurrent cancer of right breast (HCC-CM S) (HCC) - Primary documented in this encounter Administered Medications Inactive Administered Medications - up to 3 most recent administrations Medication Order MAR Action Action Date Dose Rate Site fulvestrant (FASLODEX) injection 500 Given 09/19/2021 16:34 EDT 500 mg mg 500 mg, intramuscular, NOW X1, 1 dose, On Luz 09/19/21 at 1630, Routine documented in this encounter Orders Medications Ordered That Might Not Have Count Last Ord ered Date First Ordered Date Been Administered fulvestrant (FASLODEX) injection 500 mg 1 09/20/19 22 Nursing Count Last Ordered Date First Ordered Date INFORMED CONSENT 1 09/19/2021 Appointment Requests Count Last Ordered Date First Ord ered Date ONCBCN CLINIC APPOINTMENT REQUEST 3 09/19/2021 ONCBCN INFUSION APPOINTMENT REQUEST - 1 09/19/2021 CALCULATED documented in this encounter Care Teams Kiln Firer Relationship Specialty Start Date End Date Filomena Ochoa PA-C PCP - General 03/02/18 2 [place] [phone] documented as of this encounter
--- OUTSIDE RECORDS SUMMARY | 2021-11-29 00:22 | XMS_ITS | Encounter Summary ---
:1970 Author Organization [facility] Address [address] [place] [address] Care Team Providers Name Role Phone Filomena Ochoa PA-C Primary Care Provider [phone] Reason for Visit Reason Comments Infusion Prior Authorization (See Order Priority) - Authorized Specialty Diagnoses / Procedures Referred By Contact Refer red To Contact Infusion Therapy Diagnoses Recurrent cancer of right breast ([facility]) ([facility]) Jessi Pleitez MD PhD [facility] Adult Infusion [address] [facility] She [address] Phone: [phone] Referral ID Status Reason Start Expiration Visits Visits Date Date Requested Authorized [id number] Authorized Specialty 08/21/2021 08/21/2022 3 3 Services Required Encounter Details Date Type Department Care Team Description 08/21/2021 Hospital Encounter [facility] Cancer Center Recu rrent cancer of Hematology & Oncology right breast (HCC-[facility]) - [facility] ([facility]) (Primary Dx) [address] [place] [address] Social History Tobacco Use Types Packs/Day Years [...] Sign Reading Time Taken Comments Blood Pressure 128/84 08/21/2021 1546 EDT Pulse 66 08/21/2021 1546 EDT Temperature 35.9 ??C (96.7 ??F) 08/21/2021 1546 EDT Respiratory Rate 16 08/21/2021 1546 EDT Oxygen Saturation 98% 08/21/2021 1546 EDT Inhaled Oxygen Concentration - - Weight 64.2 kg (141 lb 9.6 oz) 08/21/2021 1546 EDT Height - - Body Mass Index 22.22 06/12/2021 1016 EDT documented in this encounter [...] Care documented in this encounter Progress Notes Ning Silveira, RN - 08/21/2021 1530 EDT Out-patient Chemotherapy Note Patient presents to clinic today for cycle Zometa infusion treatment plan. Pt states feeling well, no complaints. Reviewed lab results with patient Chemistry: Lab Results Component Value Date NA 137 08/19/2021 K 4.3 08/19/2021 BUN 21 08/19/2021 CREATININE 0.87 08/19/2021 CALCIUM 9.5 08/19/2021 MG 2.2 08/19/2021 . Parameters for today???s treatment met Patient noted with Peripheral IV Right antecubital for access. IV flushed, site unremarkable and without redness and brisk blood return noted before and after infusion. Confirmed with the patient that she has had no dental procedures done recently and she doesn't anticipate any upcoming dental procedures. Pt states she doesn't take Vit D in the summer. Zometa was administered over 20 min. Patient tolerated infusion well. Patient education: Patient verbally educated on all medications administered today. Patient expressed understanding of education provided and no barriers identified Patient' s Peripheral IV Right forearm noted to have brisk blood return and device flushed per hospital policy. Access site noted to be unremarkable and without redness. PIV removed, dressing applied. Patient and family encouraged to call clinic with any issues. I was supervised by Dr. Mandujano who was present and immediately available in the office suite. Ronel Silveira, RN documented in this encounter Miscellaneous Notes Addendum Note - Juan Joyce - 08/21/2021 1530 EDT Encounter addended by: Juan Joyce on: 08/27/2021 10:01 Actions taken: Charge Capture section accepted documented in this encounter Plan of Treatment Upcoming Encounters Date Type Specialty Care Team Description 12/16/2021 Appointment Infusion Therapy 04/15/2022 Office Visit Hematology and Oncology Poppy Felton, PACl 111 [facility] 2 [place], [place] [phone] (Larissa felder) 05/30/2022 Office Visit Surgical Oncology Asa Cameron MD [address] [facility] 2 [place], [place] [phone] (Wo rk) documented as of this encounter Visit Diagnoses Diagnosis Recurrent cancer of right breast (HCC-CM S) (HCC) - Primary documented in this encounter Administered Medications Inactive Administered Medications - up to 3 most recent administrations Medication Order MAR Action Action Date Dose Rate Site sodium chloride 0.9 % (NS) New Bag 08/21/2021 16:00 EDT 250 mL 100 mL/hr infusion at 100 mL/hr, 250 mL, intravenous, CONTINUOUS, Starting on Thu08/21/21 at 1615, Until Luz 08/22/21 at 1559, Routine zoledronic acid (ZOMETA) 4 mg/100 mL IVP B 4 mg New Bag 08/21/2021 16:02 EDT 4 mg 4 mg, intravenous, Administer over 20 Minutes, NOW X1, 1 dose, On Thu08/21/21 at 1615, Routine documented in this encounter Orders Medications Ordered That Might Not Have Count Last Ord ered Date First Ordered Date Been Administered diphenhydrAMINE (BENADRYL) injection 50 mg 1 08/21 EPINEPHrine (ADRENALIN) injection 0.3 mg 1 022 methylPREDNISolone sod suc(PF) 1 08/21/2021 (SOLU-MEDROL) injection 100 mg sodium chloride 0.9 % (flush) flush 20 mL 1 2021 Nursing Count Last Ordered Date First Ordered Date INFORMED CONSENT 1 08/21/2021 NURSING COMMUNICATION 1 08/21/2021 Appointment Requests Count Last Ordered Date First Ord ered Date ONCBCN INFUSION APPOINTMENT REQUEST - 2 08/21/2021 08/19/2021 CALCULATED documented in this encounter Care Teams Fur Cleaner Relationship Specialty Start Date End Date Filomena Ochoa PA-C PCP - General 03/02/18 2 [place] [phone] documented as of this encounter
--- OUTSIDE RECORDS SUMMARY | 2021-11-29 00:22 | XMS_ITS | Encounter Summary ---
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 Recurr ent cancer of Phlebotomy Phlebotomy right breast [address] [facility] ([facility]) ([facility]) [place] [address] Social History Tobacco Use Types [...] and Oncology Poppy Felton PA-C [address] [phone] (Wo rk) 05/30/2022 Office Visit Surgical Oncology Asa Cameron MD [address] [phone] (Wo rk) documented as of this encounter Procedures Procedure Name Priority Date/Time Associated Comments Diagnosis COMPREHENSIVE STAT 07/19/2021 13:51 Recurrent cancer of Res ults for this METABOLIC PANEL EDT right breast procedure ar e in (ONCOLOGY USE ONLY-INC ([facility]) ([facility]) th e results MG) section. documented in this encounter Results COMPREHENSIVE METABOLIC PANEL (ONCOLOGY USE ONLY-INC MG) (07/19/2021 13:51 EDT) Pathologist Sig nature Sodium 136 136 - 145 mmol/L [facility] Potassium 3.6 3.5 - 5.0 mmol/L [facility] Chloride 101 96 - 110 mmol/L [facility] CO2 Total 27 22 - 32 mmol/L [facility] SERVICES Glucose 92 70 - 100 mg/dL [facility] BUN 14 10 - 26 mg/dL [facility] Creatinine 0.82 0.52 - 1.04 [facility] mg/dL LABORATORY SERVICES eGFR 88 >60 [facility] mL/min/1.73m2 LABORATORY SERVICES Total Protein 6.4 6.3 - 8.2 g/dL [facility] SERVICES Albumin 3.9 3.4 - 4.9 g/dL [facility] Alkaline Phosphatase 40 38 - 126 U/L [facility] AST 24 15 - 46 U/L [facility] ALT 18 <35 U/L [facility] Bilirubin, Total <0.5 <1.4 mg/dL [facility] Calcium 9.3 8.5 - 10.5 mg/dL [facility] Magnesium 1.9 1.7 - 2.8 mg/dL [facility] Albumin/Globulin Ratio 1.6 1.0 - 2.5 [facility] Anion Gap 8 5 - 14 [facility] SERVICES Specimen Blood - Venous blood (substance) Performing Organization Address City/State/ZIP Code Phon e Number [facility] [address] [place] [address] SERVICES documented in this encounter Visit Diagnoses Diagnosis Recurrent cancer of right breast (HCC-CM S) (HCC) documented in this encounter Care Teams Block Layer Relationship Specialty Start Date End Date Filomena Ochoa PA-C PCP - General 03/02/18 2 [place] [phone] documented as of this encounter
--- OUTSIDE RECORDS SUMMARY | 2021-11-29 00:23 | XMS_ITS | Encounter Summary ---
:1970 Author Organization [facility] Address [address] [place] [address] Care Team Providers Name Role Phone Filomena Ochoa PA-C Primary Care Provider [phone] Reason for Visit Reason Onset Date Comments Appointment Related 02/20/2021 Encounter Details Date Type Department Care Team Description 02/20/2021 Telephone [facility] Jessi Pleitez MD PhD Appointment Related Ambulatory Infusion 111 [facility], [address] Level 2 [place], [place] [address] [place] [address] [phone] (Wo rk) Social History Tobacco Use [...] this encounter Miscellaneous Notes Telephone Encounter - Matilde Singletary - 02/20/2021 1152 EST Screening Questions prior to Med Release 1. Do you have a fever or have had a fever of 100.4 degrees F. in the last 24 hours? no 2. Are you taking any medication for a recent infection? no 3. Have you had a recent illness, or changes in your health since your last infusion? If so, is yourordering provider aware? no 4. Have you had a recent COVID vaccination or have one scheduled? If so, does your ordering provideraware? no 5. (for Remicade, Entyvio, Renflexis, Rituximab, Ocrevus, pts, 'mab' patients) Have you had any recent surgeries in the last month or have any planned in the near future? no documented in this encounter Plan of Treatment Upcoming Encounters Date Type Specialty Care Team Description 12/16/2021 Appointment Infusion Therapy 04/15/2022 Office Visit Hematology and Oncology Poppy [place], SHAHAB 111 [facility] venue [facility], [facility], [facility] 2 [place], [place] [phone] (Wo rk) 05/30/2022 Office Visit Surgical Oncology Asa [place] MD 111 [facility], [facility], [facility] 2 [place], [place] [phone] (Wo rk) documented as of this encounter Visit Diagnoses Not on filedocumented in this encounter Care Teams Wind Science And Planning Relationship Specialty Start Date End Date Filomena Ochoa PA-C PCP - General 03/02/18 2 [place] [address] documented as of this encounter
--- OUTSIDE RECORDS SUMMARY | 2021-11-29 00:23 | XMS_ITS | Encounter Summary ---
:1970 Author Organization [facility] Address [address] [place] [address] Care Team Providers Name Role Phone Filomena Ochoa PA-C Primary Care Provider Encounter Details Date Type Department Care Team Description 04/19/2021 Orders Only [facility] Hematology [place], Carmen, & Oncology - Main Ca mpus RN [address] [place] [address] Social History Tobacco Use Types [...] and Oncology Poppy [place]ton PA-C [address] [phone] (Wo rk) 05/30/2022 Office Visit Surgical Oncology Asa [place] MD [address] [phone] (Wo rk) documented as of this encounter Visit Diagnoses Not on filedocumented in this encounter Care Teams News Camera Person Relationship Specialty Start Date End Date Filomena Ochoa PA-C PCP - General 03/02/18 2 [place] [phone] documented as of this encounter
--- OUTSIDE RECORDS SUMMARY | 2021-11-29 00:23 | XMS_ITS | Encounter Summary ---
:1970 Author Organization [facility] Address [address] [place] [address] Care Team Providers Name Role Phone Filomena Ochoa PA-C Primary Care Provider [phone] Reason for Visit Reason Onset Date Comments Appointment Related 05/30/2021 Encounter Details Date Type Department Care Team Description 05/30/2021 Telephone [facility] Asa [place] MD Appointment Related Surgical Oncology - [address] [place] [address], [address], Level 2 [place], [place] [address] [place] [address] [phone] (Wo rk) Social History Tobacco Use [...] Notes Telephone Encounter - Mary Landers - 05/30/2021 1346 EDT LVM for the patient inquiring to see if she would be interested in coming in a little earlier for her visit with Dr. [place] on: 05/31/2021 @ 4:00pm instead of 4:30pm I have requested that the give us a call back to the psychiatric Mary Landers 05/30/2021 13:46 documented in this encounter Plan of Treatment Upcoming Encounters Date Type Specialty Care Team Description 12/16/2021 Appointment Infusion Therapy 04/15/2022 Office Visit Hematology and Oncology Poppy [place], PACl 111 [facility] venue [facility], [facility], [facility] 2 [place], [place] [phone] (Wo rk) 05/30/2022 Office Visit Surgical Oncology Asa [place] MD 111 [facility], [facility], Level 2 [place], [place] [phone] (Wo rk) documented as of this encounter Visit Diagnoses Not on filedocumented in this encounter Care Teams Legal Paraprofessional Relationship Specialty Start Date End Date Filomena Ochoa PA-C PCP - General 03/02/18 2 [place] [phone] documented as of this encounter
--- OUTSIDE RECORDS SUMMARY | 2021-11-29 00:23 | XMS_ITS | Encounter Summary ---
:1970 Author Organization [facility] Address [address] [place] [address] Care Team Providers Name Role Phone Filomena Ochoa PA-C Primary Care Provider [phone] Reason for Visit Reason Onset Date Comments Appointment Related 2021 Encounter Details Date Type Department Care Team Description 2021 Telephone [facility] Asa [place] MD Appointment Related Surgical Oncology - [address] [place] [address], [address], Level 2 [place], [place] [address] [place] [address] [phone] (Wo rk) Social History Tobacco Use [...] Notes Telephone Encounter - Mary Landers - 2021 1210 EDT Gave pt a call to offer her a sooner appt off of Dr. [place]'s wait list. While on the phone with thepatient she accepted a sooner appt on: 05/31/2021 @ 4:30pm Mary Landers 2021 12:10 documented in this encounter Plan of Treatment Upcoming Encounters Date Type Specialty Care Team Description 12/16/2021 Appointment Infusion Therapy 04/15/2022 Office Visit Hematology and Oncology Poppy [place] PA-C 111 [facility], [facility] 2 [place], [place] [phone] (Larissa felder) 05/30/2022 Office Visit Surgical Oncology Asa [place] MD 111 [facility], [facility] 2 [place] [phone] (Larissa felder) documented as of this encounter Visit Diagnoses Not on filedocumented in this encounter Care Teams Integration Developer Relationship Specialty Start Date End Date Filomena Ochoa PA-C PCP - General 03/02/18 2 [place] [phone] documented as of this encounter
--- OUTSIDE RECORDS SUMMARY | 2021-11-29 00:23 | XMS_ITS | Encounter Summary ---
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 Recurr ent cancer of Phlebotomy Phlebotomy right breast 111 [facility] ([facility] ([facility]) [place] [address] Social History Tobacco Use Types [...] Hematology and Oncology Poppy [place] PA-C [address] [phone] (Wo rk) 05/30/2022 Office Visit Surgical Oncology Asa [place] MD [address] [phone] (Wo rk) documented as of this encounter Procedures Procedure Name Priority Date/Time Associated Comments Diagnosis COMPREHENSIVE STAT 2021 14:51 Recurrent cancer of Res ults for this METABOLIC PANEL EDT right breast procedure ar e in (ONCOLOGY USE ONLY-INC ([facility] ([facility]) th e results MG) section. documented in this encounter Results (ABNORMAL) COMPREHENSIVE METABOLIC PANEL (ONCOLOGY USE ONLY-INC MG) (2021 14:51 EDT) Pathologist Sig nature Sodium 137 136 - 145 mmol/L [facility] Potassium 4.3 3.5 - 5.0 mmol/L [facility] Chloride 105 96 - 110 mmol/L [facility] CO2 Total 30 22 - 32 mmol/L [facility] Glucose 93 70 - 100 mg/dL [facility] BUN 20 10 - 26 mg/dL [facility] Creatinine 0.79 0.52 - 1.04 [facility] mg/dL LABOR[facility]ORY SERVICES eGFR 88 >60 [facility] mL/min/1.73m2 [facility] Total Protein 6.6 6.3 - 8.2 g/dL [facility] Albumin 4.2 3.4 - 4.9 g/dL [facility] Alkaline Phosphatase 45 38 - 126 U/L [facility] AST 28 15 - 46 U/L [facility] ALT 25 <35 U/L [facility] Bilirubin, Total <0.5 <1.4 mg/dL [facility] Calcium 9.8 8.5 - 10.5 mg/dL [facility] Magnesium 2.1 1.7 - 2.8 mg/dL [facility] Albumin/Globulin Ratio 1.8 1.0 - 2.5 [facility] Anion Gap 2 (L) 5 - 14 [facility] Specimen Blood - Venous blood (substance) Performing Organization Address City/State/ZIP Code Phon e Number [facility] [address] [place] [address] SERVICES documented in this encounter Visit Diagnoses Diagnosis Recurrent cancer of right breast (HCC-CM S) (HCC) documented in this encounter Care Teams Security Threat Analyst Relationship Specialty Start Date End Date Filomena Ochoa PA-C PCP - General 03/02/18 2 [place] [phone] documented as of this encounter
--- OUTSIDE RECORDS SUMMARY | 2021-11-29 00:23 | XMS_ITS | Encounter Summary ---
:1970 Author Organization [facility] Address [address] [place] [address] Care Team Providers Name Role Phone Filomena Ochoa PA-C Primary Care Provider Reason for Visit Reason Comments Injections Prior Authorization (Routine/Next Available) - Closed Specialty Diagnoses / Procedures Referred By Contact Refer red To Contact Hematology and Diagnoses Malignant neoplasm of female breast, unspecified estrogen receptor status, unspecified laterality, unspecified site of breast ([facility]) (HCC) Jessi Pleitez MD PhD Ep2 Hem/Onc Oncology 111 [facility] 111 [place], [place] [address] [place] [address], Level 2 [place], [place] Fax: [phone] Referral ID Status Reason Start Date Expiration Date Visits Requ ested Visits Authorized [id number] Closed Other 02/06/2020 09/11/2021 15 15 Encounter Details Date Type Department Care Team Description 03/20/2021 Hospital Encounter [facility] Cancer Center Recu rrent cancer of Hematology & Oncology right breast ([facility]) [facility] ([facility]) (Primary Dx) [address] [place] [address] Social History Tobacco Use Types Packs/Day Years [...] Sig Dispensed Refills Start Date End Date fluticasone propionate Instill 100 mcg 0 (FLONASE) 50 mcg/actuation into both nostrils nasal spray as needed. melatonin 10 mg tablet Take by mouth at 0 bedtime. UNABLE TO FIND as needed. Med 0 Name: [facility] buPROPion (WELLBUTRIN XL) TAKE 1 TABLET 90 Tab 3 021 05/08/2021 300 mg XL DAILY tabletIndications: Depression, unspecified depression type lisdexamfetamine (VYVANSE) Take 1 capsule by 28 capsule 0 03/21/2021 40 mg capsule mouth every morning for 28 days. Daily Max: 40 mg LORazepam (ATIVAN) 0.5 mg Take 1 Tablet by 10 Tablet 1 /08/202003/21/2021 tablet mouth at bedtime as needed for Anxiety or Sleep. Daily Max: 0.5 mg ondansetron (ZOFRAN-ODT) 4 Take 1 Tab by 10 Tab 0 201905/12/2021 mg disintegrating mouth every 8 tabletIndications: hours as needed Recurrent cancer of right for Nausea. breast (HCC-CMS) (HCC) traZODone (DESYREL) 100 mg Take 1.5 Tablets 45 Tablet 0 03/21/2021 tablet by mouth at bedtime. documented as of this encounter Discharge Disposition Disposition Code Departure Means Destination Home or Self Care documented in this encounter Progress Notes Christopher Beverly RN - 03/20/2021 1100 EST Patient arrives today for cycle 11 day 1 of Fulvestrant. Pt. Will have labs drawen today. Fulvestrant 500 mg administered IM to left and right gluteal region 250 mg dose x 1 to each side. Patient tolerated without issue, band aids applied. I was supervised by Dr. Pleitez who was present and immediately available in the office suite. CHRISTOPHER BEVERLY RN 03/20/2021 11:16 documented in this encounter Miscellaneous Notes Addendum Note - Yanna Astudillo - 03/20/2021 1100 EST Encounter addended by: Yanna Astudillo on: 03/27/2021 14:50 Actions taken: Charge Capture section accepted documented in this encounter Plan of Treatment Upcoming Encounters Date Type Specialty Care Team Description 12/16/2021 Appointment Infusion Therapy 04/15/2022 Office Visit Hematology and Oncology Poppy [place] PA-C 111 [place] [facility] venue [facility], [facility], [facility] 2 [place], [place] [phone] (Wo rk) 05/30/2022 Office Visit Surgical Oncology Asa [place] MD 111 [facility], [facility], Level 2 [place], [place] [phone] (Wo rk) documented as of this encounter Visit Diagnoses Diagnosis Recurrent cancer of right breast (HCC-CM S) (HCC) - Primary documented in this encounter Administered Medications Inactive Administered Medications - up to 3 most recent administrations Medication Order MAR Action Action Date Dose Rate Site fulvestrant (FASLODEX) Given 03/20/2021 11:09 500 mg Left Gluteus Medius injection 500 mg EST 500 mg, intramuscular, NOW X1, 1 dose, On Thu03/20/21 at 1130, Routine documented in this encounter Orders Medications Ordered That Might Not Have Count Last Ord ered Date First Ordered Date Been Administered fulvestrant (FASLODEX) injection 500 mg 1 03/20/19 22 Nursing Count Last Ordered Date First Ordered Date INFORMED CONSENT 03/20/2021 Appointment Requests Count Last Ordered Date First Ord ered Date ONCBCN INFUSION APPOINTMENT REQUEST - 1 03/20/2021 CALCULATED documented in this encounter Care Teams Psychology Lecturer Relationship Specialty Start Date End Date Filomena Ochoa PA-C PCP - General 03/02/18 2 [place] [address] documented as of this encounter
--- OUTSIDE RECORDS SUMMARY | 2021-11-29 00:23 | XMS_ITS | Encounter Summary ---
:1970 Author Organization [facility] Address [address] [place] [address] Care Team Providers Name Role Phone Filomena Ochoa PA-C Primary Care Provider [phone] Reason for Visit Reason Onset Date Comments Medications Refill 02/18/2021 Medications Refill 02/22/2021 Encounter Details Date Type Department Care Team Description 02/18/2021 Refill [facility] Adult Nova Ochoa Medications Refill; Primary Care - Hallie Wolf PA-C Medications Refill [address] [place] [address] [place], [place] [phone] (Wo rk) Social History Tobacco Use [...] Date lisdexamfetamine (VYVANSE) Take 1 capsule by 28 capsule 0 03/21/2021 40 mg capsule mouth every morning for 28 days. Daily Max: 40 mg documented in this encounter Miscellaneous Notes Telephone Encounter - Filomena Ochoa PA-C - 02/20/2021 1253 EST eprescribed elephone Encounter - Kenzie Osborne - 02/20/2021 1155 EST patient is out of medication and is also asking it be sent to [facility] instead of [facility] elephone Encounter - Filomena Coker RN - 02/20/2021 1128 EST From: Jia Dow To: Office of Filomena Ochoa PA-C Sent: 02/18/2021 17:29 EST Subject: Medication Renewal Request Refills have been requested for the following medications: lisdexamfetamine (VYVANSE) 40 mg capsule [Filomena Ochoa PA-C] Patient Comment: 30 day, instead of 84, please! I've been in [place] for the past couple of months andwas unable to get mail order prescriptions. I have to b e at [facility] on Thursday for my infusion and injection and am therefore hoping I can have the 40mg vyvanse 30 day called in there. Thanks! Preferred pharmacy: Other - [facility] Pharm[facility] ([address] documented in this encounter Plan of Treatment Upcoming Encounters Date Type Specialty Care Team Description 12/16/2021 Appointment Infusion Therapy 04/15/2022 Office Visit Hematology and Oncology Poppy [place] PA-C 111 [facility], [facility] 2 [place], [place] [phone] (Wo rk) 05/30/2022 Office Visit Surgical Oncology Asa [place] MD 111 [facility], [facility] 2 [place] [phone] (Wo rk) documented as of this encounter Visit Diagnoses Not on filedocumented in this encounter Discontinued Medications Medication Sig Discontinue Reason Start Date End Date lisdexamfetamine (VYVANSE) Take 1 capsule by Reorder 1 02/18/2021 40 mg capsule mouth every morning for 84 days. Daily Max: 40 mg documented as of this encounter Care Teams Body Make Up Artist Relationship Specialty Start Date End Date Filomena Ochoa PA-C PCP - General 03/02/18 2 [place] [phone] documented as of this encounter
--- OUTSIDE RECORDS SUMMARY | 2021-11-29 00:23 | XMS_ITS | Encounter Summary ---
:1970 Author Organization [facility] Address [address] [place] [address] Care Team Providers Name Role Phone Filomena Ochoa PA-C Primary Care Provider [phone] Encounter Details Date Type Department Care Team Description 03/20/2021 Phlebotomy Only [facility] Blood Doctor, Recurr ent cancer of Hematology & Oncology [facility] Hem Onc [facility] (HCC-CMS) (HCC) 111 [facility] (Primary Dx) [place] [address] Social History Tobacco Use Types [...] documented as of this encounter Progress Notes Tonny Richardson MA - 03/20/2021 1130 EST Venipuncture performed for Dittus Per orders of Pricilla Number of attempts 1 RT AC I was supervised by Pricilla who was present and immediately available in the office suite. TONNY RICHARDSON MA 03/20/2021 11:26 documented in this encounter Plan of Treatment Upcoming Encounters Date Type Specialty Care Team Description 12/16/2021 Appointment Infusion Therapy 04/15/2022 Office Visit Hematology and Oncology Poppy [place] PA-C 111 [facility], [facility] 2 [place], [place] [phone] (Larissa felder) 05/30/2022 Office Visit Surgical Oncology Asa [place] MD 111 [facility] 2 [place], [place] [address] (Larissa felder) documented as of this encounter Procedures Procedure Name Priority Date/Time Associated Comments Diagnosis COMPREHENSIVE STAT 03/20/2021 11:25 Recurrent cancer of Res ults for this METABOLIC PANEL EST right breast procedure ar e in (ONCOLOGY USE ONLY-INC (HCC-CMS) (HCC) th e results MG) section. documented in this encounter Results (ABNORMAL) COMPREHENSIVE METABOLIC PANEL (ONCOLOGY USE ONLY-INC MG) (03/20/2021 11:25 EST) Pathologist Sig nature Sodium 139 136 - 145 mmol/L [facility] Potassium 4.1 3.5 - 5.0 mmol/L [facility] Chloride 106 96 - 110 mmol/L [facility] CO2 Total 27 22 - 32 mmol/L [facility] Glucose 81 70 - 100 mg/dL [facility] BUN 25 10 - 26 mg/dL [facility] Creatinine 0.85 0.52 - 1.04 [facility] mg/dL LABOR[facility]ORY SERVICES eGFR 81 >60 [facility] mL/min/1.73m2 [facility] Total Protein 6.8 6.3 - 8.2 g/dL [facility] Albumin 4.4 3.4 - 4.9 g/dL [facility] Alkaline Phosphatase 48 38 - 126 U/L [facility] AST 31 15 - 46 U/L [facility] ALT 18 <35 U/L [facility] Bilirubin, Total <0.5 <1.4 mg/dL [facility] Calcium 9.9 8.5 - 10.5 mg/dL [facility] Magnesium 2.1 1.7 - 2.8 mg/dL [facility] Albumin/Globulin Ratio 1.8 1.0 - 2.5 [facility] Anion Gap 6 (L) 8 - 16 [facility] Specimen Blood - Venous blood (substance) Performing Organization Address City/State/ZIP Code Phon e Number [facility] [address] [place] [address] SERVICES documented in this encounter Visit Diagnoses Diagnosis Recurrent cancer of right breast (HCC-CM S) (HCC) - Primary documented in this encounter Care Teams Meat Slicer Relationship Specialty Start Date End Date Filomena Ochoa PA-C PCP - General 03/02/18 2 [place] [phone] documented as of this encounter
--- OUTSIDE RECORDS SUMMARY | 2021-11-29 00:23 | XMS_ITS | Encounter Summary ---
:1970 Author Organization [facility] Address [address] [place] [address] Care Team Providers Name Role Phone Filomena Ochoa PA-C Primary Care Provider [phone] Encounter Details Date Type Department Care Team Description 11/21/2020 Phlebotomy Only [facility] 2 Pet Care Technician, Acc Recurr ent cancer of Phlebotomy Phlebotomy right breast 111 [facility] ([facility] [place], [place] [id number] Social History Tobacco Use Types Packs/Day Years [...] Exposure Response Date Recorded In the last month, have you been in contact with No / Unsure 10/26/2020 11:40 EDT someone who was confirmed or suspected to have Coronavirus / COVID-19? documented as of this encounter Functional Status [...] Hematology and Oncology Poppy Felton PA-C [address] [phone] (Wo rk) 05/30/2022 Office Visit Surgical Oncology Asa Cameron MD [address] [phone] (Wo rk) documented as of this encounter Procedures Procedure Name Priority Date/Time Associated Comments Diagnosis COMPREHENSIVE STAT 11/21/2020 10:46 Recurrent cancer of Res ults for this METABOLIC PANEL EDT right breast procedure ar e in (ONCOLOGY USE ONLY-INC ([facility]) the r esults MG) section. BILIRUBIN Routine 11/21/2020 10:46 Recurrent cancer of Resu lts for this DIRECT/INDIRECT EDT right breast procedure ar e in ([facility]) the results section. documented in this encounter Results BILIRUBIN DIRECT/INDIRECT (11/21/2020 10:46 EDT) Pathologist Sig nature Conjugated Bilirubin 0.0 0.0 - 0.3 mg/dL [facility] Unconjugated Bilirubin 0.1 0.0 - 1.1 mg/dL [facility] Specimen Blood - Venous blood (substance) Performing Organization Address City/[facility] Phon e Number [facility] [address] [place] [address] SERVICES (ABNORMAL) COMPREHENSIVE METABOLIC PANEL (ONCOLOGY USE ONLY-INC MG) (11/21/2020 10:46 EDT) Sodium 138 136 - 145 [facility] mmol/L [facility] Potassium 4.1 3.5 - 5.0 [facility] mEq/L [facility] Chloride 103 96 - 110 [facility] mEq/L [facility] CO2 Total 29 22 - 32 mEq/L [facility] Glucose 88 70 - 100 [facility] mg/dL [facility] BUN 30 (H) 10 - 26 mg/dL [facility] Creatinine 0.83 0.52 - 1.04 [facility] mg/dL [facility] eGFR 84Comment: eGFR >60 [facility] calculated using mL/min/1.73m2 CENTER LABORATORY CKD-EPI equation SERVICES for non- Americans. Multiply eGFR by 1.16 for patients. Total Protein 6.7 6.3 - 8.2 [facility] g/dL [facility] Albumin 4.3 3.4 - 4.9 [facility] g/dL [facility] Alkaline 37 (L) 38 - 126 U/L [facility] Phosphatase [facility] AST 24 15 - 46 U/L [facility] ALT 20 <35 U/L [facility] Bilirubin, Total <0.5 <1.4 mg/dL [facility] Calcium 10.3 8.5 - 10.5 [facility] mg/dL [facility] Calculated Calcium 10.1 8.5 - 10.5 [facility] mg/dL [facility] Magnesium 2.1 1.7 - 2.8 [facility] mg/dL [facility] Specimen Blood - Venous blood (substance) Performing Organization Address City/[facility] Phon e Number [facility] [address] [place] [address] SERVICES documented in this encounter Visit Diagnoses Diagnosis Recurrent cancer of right breast (HCC-CM S) (HCC) documented in this encounter Care Teams Hair Dryer Relationship Specialty Start Date End Date Filomena Ochoa PA-C PCP - General 03/02/18 [address] [place] [phone] documented as of this encounter
--- OUTSIDE RECORDS SUMMARY | 2021-11-29 00:23 | XMS_ITS | Encounter Summary ---
:1970 Author Organization [facility] Address [address] [place] [address] Care Team Providers Name Role Phone Filomena Ochoa PA-C Primary Care Provider [phone] Reason for Visit Reason Onset Date Comments Medications Refill 03/21/2021 Encounter Details Date Type Department Care Team Description 03/21/2021 Refill [facility] Adult Nova Ochoa, Medications Refill Primary Care - Hallie GUDINO [address] [place] [address] [place], [place] [phone] (Wo rk) Social History Tobacco Use [...] Sig Dispensed Refills Start Date End Date LORazepam (ATIVAN) 0.5 mg Take 1 Tablet by 10 Tablet 0 02/24 tablet mouth at bedtime as needed for Anxiety or Sleep. Daily Max: 0.5 mg traZODone (DESYREL) 100 mg Take 1.5 Tablets 45 Tablet 0 04/22/2021 tablet by mouth at bedtime. lisdexamfetamine (VYVANSE) Take 1 capsule by 28 capsule 0 04/22/2021 40 mg capsule mouth every morning for 28 days. Daily Max: 40 mg documented in this encounter Miscellaneous Notes Telephone Encounter - Filomena North RN - 03/22/2021 1054 EST Spoke to patient who is traveling to [place] for a month tomorrow. The Vyvanse also costs her the same high copay no matter the length of prescription. Please see pended for 28 days due to travel if appropriate. Has appointment with Filomena Ochoa on 04/26. Patient has been dealing with recurrence of breast cancer so her care has been primarily through them in the past year. elephone Encounter - Kenzie Osborne - 03/22/2021 1018 EST patient schedule an appt. Will be out of state, leaving 03.23.21 and needs abby elephone Encounter - Ailyn Sequeira - 03/22/2021 0849 EST mychart sent to schedule elephone Encounter - Cesar Burns RN - 03/21/2021 1805 EST Medication(s) Requested: vyvanse 40mg, lorazepam 0.5mg, trazodone 100mg [facility]acy[facility] Is patient out of medication? Unknown Last Refill Date: 02/20/21, 08/29/20, 02/22/21 Last Visit Date with Ordering Provider: 05/04/20 Next Non-Acute Visit Date Scheduled with Care Team: No. CESAR BURNS RN 03/21/2021 18:05 elephone Encounter - Cesar Burns RN - 03/21/2021 1803 EST From: Jia Dow To: Office of Filomena Ochoa PA-C Sent: 03/21/2021 12:57 EST Subject: Medication Renewal Request Refills have been requested for the following medications: LORazepam (ATIVAN) 0.5 mg tablet [Filomena Ochoa PA-C] lisdexamfetamine (VYVANSE) 40 mg capsule [Filomena Ochoa PA-C] Preferred pharmacy: [id number] Medication renewals requested in this message routed separately: traZODone (DESYREL) 100 mg tablet [Ailyn Hernandez MD] documented in this encounter Plan of Treatment Upcoming Encounters Date Type Specialty Care Team Description 12/16/2021 Appointment Infusion Therapy 04/15/2022 Office Visit Hematology and Oncology Poppy Felton PA-C 111 [facility] [place], [facility] 2 [place], [place] [phone] (Wo rk) 05/30/2022 Office Visit Surgical Oncology Asa Cameron MD [address] [phone] (Wo rk) documented as of this encounter Visit Diagnoses Not on filedocumented in this encounter Discontinued Medications Medication Sig Discontinue Reason Start Date End Date LORazepam (ATIVAN) 0.5 mg Take 1 Tablet by Reorder 08/29/2020 03/21/2021 tablet mouth at bedtime as needed for Anxiety or Sleep. Daily Max: 0.5 mg lisdexamfetamine (VYVANSE) Take 1 capsule by Reorder 03/21/2021 40 mg capsule mouth every morning for 28 days. Daily Max: 40 mg traZODone (DESYREL) 100 mg Take 1.5 Tablets Reorder 02/22/2021 03/21/2021 tablet by mouth at bedtime. documented as of this encounter Care Teams Drag Car Racer Relationship Specialty Start Date End Date Filomena Ochoa PA-C PCP - General 03/02/18 [address] [place] [phone] documented as of this encounter
--- OUTSIDE RECORDS SUMMARY | 2021-11-29 00:23 | XMS_ITS | Encounter Summary ---
:1970 Author Organization [facility] Address [address] [place] [address] Care Team Providers Name Role Phone Filomena Ochoa PA-C Primary Care Provider [phone] Reason for Visit Reason Onset Date Comments Medications Refill 03/21/2021 Medications Refill 03/22/2021 Encounter Details Date Type Department Care Team Description 03/21/2021 Refill [facility] Ailyn Hernandez Medic ations Refill; Primary Care Weekend MD Marilyn Medications Refill Clinic [address] [phone] (Wo rk) Social History Tobacco Use Types [...] this encounter Miscellaneous Notes Telephone Encounter - Ailyn Irizarry RN - 03/22/2021 1731 EST traZODone (DESYREL) 100 mg tablet [[id number]] ?? Order Details Dose: 150 mg Route: oral Frequency: AT BEDTIME Dispense Quantity: 45 Tablet Refills: 0 ?? Sig: Take 1.5 Tablets by mouth at bedtime. ?? Start Date: 03/22/21 End Date: -- Written Date: 03/22/21 elephone Encounter - Ailyn Irizarry RN - 03/22/2021 1731 EST From: Jia Dow To: Office of Ailyn Hernandez MD Sent: 03/21/2021 12:57 EST Subject: Medication Renewal Request Refills have been requested for the following medications: traZODone (DESYREL) 100 mg tablet [Ailyn Hernandez MD] Preferred pharmacy: [id number] Medication renewals requested in this message routed separately: LORazepam (ATIVAN) 0.5 mg tablet [Filomena Ochoa PA-C] lisdexamfetamine (VYVANSE) 40 mg capsule [Filomena Ochoa PA-C] documented in this encounter Plan of Treatment Upcoming Encounters Date Type Specialty Care Team Description 12/16/2021 Appointment Infusion Therapy 04/15/2022 Office Visit Hematology and Oncology Poppy Felton PA-C [address] [phone] (Wo rk) 05/30/2022 Office Visit Surgical Oncology Asa Cameron MD [address] [phone] (Wo rk) documented as of this encounter Visit Diagnoses Not on filedocumented in this encounter Care Teams Outsole Cutter Machine Relationship Specialty Start Date End Date Filomena Ochoa PA-C PCP - General 03/02/18 [address] [place] [phone] documented as of this encounter
--- OUTSIDE RECORDS SUMMARY | 2021-11-29 00:23 | XMS_ITS | Encounter Summary ---
:1970 Author Organization [facility] Address [address] [place] [address] Care Team Providers Name Role Phone Filomena Ochoa PA-C Primary Care Provider [phone] Reason for Visit Reason Onset Date Comments Medications Refill 02/22/2021 Encounter Details Date Type Department Care Team Description 02/22/2021 Telephone [facility] Filomena Ochoa M edications Refill Primary Care Weekend SHAHAB [address] [phone] (Wo rk) Social History Tobacco Use [...] Sig Dispensed Refills Start Date End Date traZODone (DESYREL) 100 Take 1.5 Tablets by 45 Tablet 0 03/21/2021 mg tablet mouth at bedtime. documented in this encounter Miscellaneous Notes Telephone Encounter - Ailyn Hernandez MD - 02/22/2021 1115 EST The only thing I could do in the computer is right for her to take 1.5 tablets at night (it would not let me right 1.25) so I have written the prescription for that though she can continue to try to take 1-1/4 tablets. elephone Encounter - Nani [place] RN - 02/22/2021 1045 EST Spoke with patient. Reports that she has been taking Trazodone 1 1/4 tabs at bedtime on and off for couple months. Reports that she has been having increased menopause symptoms and this helps her sleep at night. Reports that she is out of medication and needs a refill through local pharmacy. Will forward to providers in clinic and to PCP for future refills. elephone Encounter - LuigicullenLesly - 02/22/2021 1005 EST Patient is calling to state she is out of her Trazodon and she takes 1 1/4 tablets. Patient is requesting this dose change be added to her new script. Patient has mail order and hasn't received her script yet. Patient would like to have this sent to [facility]. Medication(s) Requested: Trazdone Preferred Pharmacy: [facility] Is patient out of medication? Yes Last Refill Date: 06/21/2020 Last Visit Date with Ordering Provider: 08/30/2020 Next Non-Acute Visit Date Scheduled with Care Team: No. Lesly Aguirre 02/22/2021 10:06 documented in this encounter Plan of Treatment Upcoming Encounters Date Type Specialty Care Team Description 12/16/2021 Appointment Infusion Therapy 04/15/2022 Office Visit Hematology and Oncology Poppy Felton PA-C 111 [facility], [facility] 2 [place], [place] [phone] (Wo rk) 05/30/2022 Office Visit Surgical Oncology Asa Cameron MD 111 [facility] 2 [place], [place] [phone] (Wo rk) documented as of this encounter Visit Diagnoses Not on filedocumented in this encounter Discontinued Medications Medication Sig Discontinue Reason Start Date End Date traZODone (DESYREL) 100 Take 1 Tab by mouth Reorder 06/21/2020 02/22/2021 mg tablet at bedtime. documented as of this encounter Care Teams Account Services Manager Relationship Specialty Start Date End Date Filomena Ochoa PA-C PCP - General 03/02/18 2 [place] [phone] (work) documented as of this encounter
--- OUTSIDE RECORDS SUMMARY | 2021-11-29 00:23 | XMS_ITS | Encounter Summary ---
:1970 Author Organization [facility] Address [address] [place] [address] Care Team Providers Name Role Phone Filomena Ochoa PA-C Primary Care Provider [phone] Reason for Visit Reason Onset Date Comments Pre-visit Orders 11/09/2020 Encounter Details Date Type Department Care Team Description 11/09/2020 Telephone [facility], Pre-visit Orders Hematology & Oncology - [facility] [place] [address] [place], [place] [phone] Social History Tobacco Use Types Packs/Day Years [...] this encounter Miscellaneous Notes Telephone Encounter - Carmen Overton RN - 11/09/2020 1255 EDT Faxed order form and pt demographics to the [facility] for faslodex injections. documented in this encounter Plan of Treatment Upcoming Encounters Date Type Specialty Care Team Description 12/16/2021 Appointment Infusion Therapy 04/15/2022 Office Visit Hematology and Oncology Poppy Felton PA-C [address] [phone] (Wo rk) 05/30/2022 Office Visit Surgical Oncology sAa Cameron MD [address] [phone] (Wo rk) documented as of this encounter Visit Diagnoses Not on filedocumented in this encounter Care Teams Conduit Cleaner Relationship Specialty Start Date End Date Filomena Ochoa PA-C PCP - General 03/02/18 2 [place] [phone] documented as of this encounter
--- OUTSIDE RECORDS SUMMARY | 2021-11-29 00:23 | XMS_ITS | Encounter Summary ---
:1970 Author Organization [facility] Address [address] [place] [address] Care Team Providers Name Role Phone Filomena Ochoa PA-C Primary Care Provider [phone] Reason for Visit Reason Comments Follow-up Encounter Details Date Type Department Care Team Description 10/31/2020 Telemedicine [facility] Jessi Pleitez MD [facility] cancer of Hematology & PhD right breast Oncology - [address] ([facility]) (Primary [address]) [address] [place] [address] [place], [place] [phone] (Wo rk) Social History Tobacco [...] this encounter Progress Notes Jessi Pleitez MD - 10/31/2020 1300 EDT REASON FOR OFFICE VISIT: Discussion of side effects related to faslodex. ?? The concept of ???Telemedicine?? has been described to the patient.?? Patient has been informed of the anticipated benefits and possible risks.?? Patient understands the information provided regardingtelemedicine, has had the opportunity to ask questions about this information, and all questions have been answered to patient???s satisfaction. Patient consents for the use of telemedicine in his/her medical care and authorizes the transmission of any relevant medical information to providers and their staff involved in patient???s medical or mental health care. ?? PROBLEM LIST: ?? 1. Recurrence of invasive adenocarcinoma presenting as a nodule near right surgical scar A. Excision 03/16/2019 with a reexcision for positive margins on 04/06/2019 B. Pathology consistent with invasive ductal carcinoma with tubular features in the dermis, 4mm, thewell differentiated, ER positive 95%, VT +95%, HER-2 0 by IHC C. Staging [...] mastectomy specimen. 0/4 lymph nodes; ER+ >90%, VT+ >??90%; HER-2 2+ by immunohistochemistry and negative by FISH. Oncotype DX score 20(intermediate range). ?? b. Tamoxifen 08/2011 until Mar 2016 with a small break to try toremefine, but then back to tamoxifen which she took approximately 4/ /2 years 3. Family history of breast cancer, grandmother of breast cancer; genetic testing negative for BRCA mutation 4. Gynecologic history: Perimenopausal January 2020 5. Bone Density April 2019: low end of normal spine and hips A. Zometa initiated June 2020 6. Other chronic health problems include ADHD, depression??and anxiety. ?? SUBJECTIVE: Ms Dow is receiving a televideo consultation today to discuss side effects related tofluvestrant. No heart palpitations or beat skipping. For a few days after she notices smells and taste changes. Cardiology has completed their work up. She received zometa in June and tolerated it without event. She had been off fluvesterant for a bit recently because of a family member's health issue.She noticed that she was less depressed when off the drug and got more done. Activity has helped with dealing with depression. For now she is willing to continue it . She will be going out to [place] for Dec and January. ROS: A 10 point review of systems was obtained. Other than described in the subjective she has no medical concerns or issues. Medications Prior to Today's Visit Medication Sig ??? buPROPion (WELLBUTRIN XL) 300 mg XL tablet TAKE 1 TABLET DAILY ??? fluticasone propionate (FLONASE) 50 mcg/actuation nasal spray Instill 100 mcg into both nostrilsas needed. (Patient not taking: Reported on 08/25/2020) ??? lisdexamfetamine (VYVANSE) 30 mg capsule Take 1 capsule by mouth every morning for 28 days. Daily Max: 30 mg ??? LORazepam (ATIVAN) 0.5 mg tablet Take 1 Tablet by mouth at bedtime as needed for Anxiety or Sleep. Daily Max: 0.5 mg ??? melatonin 10 mg tablet Take by mouth at bedtime. ??? ondansetron (ZOFRAN-ODT) 4 mg disintegrating tablet Take 1 Tab by mouth every 8 hours as needed for Nausea. (Patient not taking: Reported on 09/10/2020) ??? traZODone (DESYREL) 100 mg tablet Take 1 Tab by mouth at bedtime. ??? UNABLE TO FIND as needed. Med Name: [facility] No facility-administered medications prior to visit. Social History Tobacco Use ??? Smoking status: Never Smoker ??? Smokeless tobacco: Never Used Substance Use Topics ??? Alcohol use: Yes Alcohol/week: 2.0 standard drinks Types: 2 Standard drinks or equivalent per week Currently in [place]. She will be returning to [place] end of May Objective: There were no vitals taken for this visit. Estimated body mass index is 22.26 kg/m?? as calculated from the following: Height as of 09/10/20: 168.9 cm (66.5). Weight as of 09/10/20: 63.5 kg (140 lb). ECOG Performance Status: 0 General: Comfortable, cooperative and in no apparent distress NEURO: Alert and oriented x 3; Grossly neurologically intact DIAGNOSTIC DATA No visits with results within 1 Day(s) from this visit. Latest known visit with results is: Hospital Outpatient Visit on 09/10/2020 Component Date Value Ref Range Status ??? Note to Patient 09/10/2020 Final Value:This result contains rich text formatting which cannot be displayed here. ??? Final Diagnosis 09/10/2020 Final Value:This result contains rich text formatting which cannot be displayed here. ??? Attestation 09/10/2020 Final Value:This result contains rich text formatting which cannot be displayed here. ??? Clinical History 09/10/2020 Final Value:This result contains rich text formatting which cannot be displayed here. ??? Gross Description 09/10/2020 Final Value:This result contains rich text formatting which cannot be displayed here. ??? Performing Lab 09/10/2020 Final Value:This result contains rich text formatting which cannot be displayed here. ASSESSMENT: ?Ms Dow is a 50-year-old female with a history of a [id number] invasive ductal carcinoma which was??ER positive, well-differentiated in 2011. She had a local recurrence February 2019. She is currently receiving monthly fulvestrant. Which she is tolerating. It is unclear of the heart palpitations are related. She has had a workup completed by cardiology. For now we will continue monthly. She will also receive zometa every 6 months. She tolerated her first infusion. PLAN: 1. Fulvestrant 500mg Monthly. We will adjust dates to accommodate a trip to [place]. 2. Zometa December 14 3. Next bone density scan would be due April 2021 4. Consider initiating zoledronic acid. We have asked the patient to check in with her dentist 5. Continued follow up with Dr Cameron who she sees in April 2020 6. Follow-up return approximately 2 months when she will be receiving Faslodex again. ?? TELEMEDICINE VIDEO VISIT ?? Today's visit was provided through telemedicine video conferencing: ?? I have reviewed the appropriateness of using video technology with the patient with regards to today's visit. The location of the patient : Home ?? The location of the provider: Office ?? The following staff and their role did participate in today's encounter visit: Jessi Pleitez MD documented in this encounter Plan of Treatment Upcoming Encounters Date Type Specialty Care Team Description 12/16/2021 Appointment Infusion Therapy 04/15/2022 Office Visit Hematology and Oncology Poppy Felton, PACl [address] [place] [address] [facility], [facility] 2 [place], [place] [phone] (Wo rk) 05/30/2022 Office Visit Surgical Oncology Asa Cameron MD [address] [place] [address] [facility], [facility], [facility] [address] [place], [place] [phone] (Wo rk) documented as of this encounter Visit Diagnoses Diagnosis Recurrent cancer of right breast (HCC-CM S) (HCC) - Primary documented in this encounter Orders Appointment Requests Count Last Ordered Date First Ord ered Date ONCBCN CLINIC APPOINTMENT REQUEST 1 10/31/2020 ONCBCN INFUSION APPOINTMENT REQUEST - 1 10/31/2020 CALCULATED documented in this encounter Care Teams Talent Manager Relationship Specialty Start Date End Date Filomena Ochoa PA-C PCP - General 03/02/18 2 [place] [phone] documented as of this encounter
--- OUTSIDE RECORDS SUMMARY | 2021-11-29 00:23 | XMS_ITS | Encounter Summary ---
:1970 Author Organization [facility] Address [address] [place] [address] Care Team Providers Name Role Phone Filomena Ochoa PA-C Primary Care Provider [phone] Encounter Details Date Type Department Care Team Description 12/12/2020 Orders Only [facility] Cancer Center Jessi Pleitez MD PhD Hematology & Oncology - [address] [place] [address] [address] [place], [place] [phone] [place] [phone] (Wo rk) Social History Tobacco Use Types [...] Hematology and Oncology Poppy Felton PA-C [address] [phone] (Wo rk) 05/30/2022 Office Visit Surgical Oncology Asa Cameron MD [address] [phone] (Wo rk) documented as of this encounter Visit Diagnoses Not on filedocumented in this encounter Care Teams Duct Cleaner Relationship Specialty Start Date End Date Filomena Ochoa PA-C PCP - General 03/02/18 2 [place] [phone] documented as of this encounter
--- OUTSIDE RECORDS SUMMARY | 2021-11-29 00:23 | XMS_ITS | Encounter Summary ---
:1970 Author Organization [facility] Address [address] [place] [address] Care Team Providers Name Role Phone Filomena Ochoa PA-C Primary Care Provider [phone] Reason for Visit Reason Onset Date Comments Medications Refill 04/22/2021 Medications Refill 04/25/2021 Encounter Details Date Type Department Care Team Description 04/22/2021 Refill [facility] Adult Jia Minor ie, Medications Refill; Primary Care - Hallie GUDINO Medications Refill 2 [place], [place] [address] Social History Tobacco Use Types Packs/Day Years [...] Start Date End Date traZODone (DESYREL) 100 mg Take 1.5 Tablets 45 Tablet 1 03/202105/08/2021 tablet by mouth at bedtime. lisdexamfetamine (VYVANSE) Take 1 capsule by 28 capsule 0 05/08/2021 40 mg capsule mouth every morning for 28 days. Daily Max: 40 mg documented in this encounter Miscellaneous Notes Telephone Encounter - Filomena Ochoa PA-C - 04/24/2021 1615 EST eprescribed elephone Encounter - Kenzie Osborne - 04/24/2021 1506 EST Requested Prescriptions Pending Prescriptions Disp Refills ??? lisdexamfetamine (VYVANSE) 40 mg capsule 28 capsule 0 Sig: Take 1 capsule by mouth every morning for 28 days. Daily Max: 40 mg ??? traZODone (DESYREL) 100 mg tablet 45 Tablet 0 Sig: Take 1.5 Tablets by mouth at bedtime. [facility] Confirmed Pharmacy? Yes Patient out of medication? Yes: Needs Refill Now Last Refill Date: Refills left? (explain exceptions requiring early refill) No Recent Visits No visits were found meeting these conditions. Showing recent visits within past 540 days with a meds authorizing provider and meeting all other requirements Future Appointments Date Type Provider Dept 04/26/21 Appointment Filomena Ochoa PA-C [facility] Showing future appointments within next 150 days with a meds authorizing provider and meeting all other requirements Future appointment: Already Scheduled Kenzie Osborne 04/24/2021 15:06 documented in this encounter Plan of Treatment Upcoming Encounters Date Type Specialty Care Team Description 12/16/2021 Appointment Infusion Therapy 04/15/2022 Office Visit Hematology and Oncology Poppy Felton PA-C [address] [phone] (Wo rk) 05/30/2022 Office Visit Surgical Oncology Asa Cameron MD [address] [phone] (Wo rk) documented as of this encounter Visit Diagnoses Not on filedocumented in this encounter Discontinued Medications Medication Sig Discontinue Reason Start Date End Date lisdexamfetamine (VYVANSE) Take 1 capsule by Reorder 2 04/22/2021 40 mg capsule mouth every morning for 28 days. Daily Max: 40 mg traZODone (DESYREL) 100 mg Take 1.5 Tablets Reorder 03/22/2021 04/22/2021 tablet by mouth at bedtime. documented as of this encounter Care Teams Forestry Extension Specialist Relationship Specialty Start Date End Date Filomena Ochoa PA-C PCP - General 03/02/18 [address] [place] [address] documented as of this encounter
--- OUTSIDE RECORDS SUMMARY | 2021-11-29 00:23 | XMS_ITS | Encounter Summary ---
:1970 Author Organization [facility] Address [address] [place] [address] Care Team Providers Name Role Phone Filomena Ochoa PA-C Primary Care Provider [phone] Reason for Visit Reason Comments Follow-up Encounter Details Date Type Department Care Team Description 12/14/2020 Telemedicine [facility] Cancer Center Jessi Pleitez MD [facility] cancer of Hematology & PhD right breast Oncology - [address] ([facility]) (HCC) [facility] (Primary Dx) [address] [place] [address] Pavilion, [place] [address] (Wo rk) Social History Tobacco [...] encounter Progress Notes Jessi Pleitez MD - 12/14/2020 1300 EDT REASON FOR OFFICE VISIT: Discussion [...] dermis, 4mm, thewell differentiated, ER positive 95%, CO +95%, HER-2 0 by IHC C. Staging [...] mastectomy specimen. 0/4 lymph nodes; ER+ >90%, CO+ >??90%; HER-2 2+ by immunohistochemistry and negative by FISH. Oncotype DX score 20(intermediate range). ?? b. Tamoxifen 08/2011 until Mar 2016 with a small break to try toremefine, but then back to tamoxifen which she took approximately 02/24 years 3. Family history of breast cancer, [...] today to discuss side effects related tofluvestrant. She has had no return of heart palpitations or beat skipping. She has not a period in 4months. She has been having hot flashes. She will be leaving for [place] soon. ROS: A 10 point review of systems [...] taking: Reported on 08/25/2020) ??? lisdexamfetamine (VYVANSE) 40 mg capsule Take [...] this visit. Estimated body mass index is 22.47 kg/m?? as calculated from the following: Height as of 11/21/20: 169 cm (66.54). Weight as of 10/25/20: 64.2 kg (141 lb 8 oz). ECOG Performance Status: 0 General: Comfortable, cooperative and in no apparent distress NEURO: Alert and oriented x 3; Grossly neurologically intact DIAGNOSTIC DATA No visits with results within 1 Day(s) from this visit. Latest known visit with results is: Phlebotomy Only on 11/21/2020 Component Date Value Ref Range Status ??? Sodium 11/21/2020 138 136 - 145 mmol/L Final ??? Potassium 11/21/2020 4.1 3.5 - 5.0 mEq/L Final ??? Chloride 11/21/2020 103 96 - 110 mEq/L Final ??? CO2 Total 11/21/2020 29 22 - 32 mEq/L Final ??? Glucose 11/21/2020 88 70 - 100 mg/dL Final ??? BUN 11/21/2020 30* 10 - 26 mg/dL Final ??? Creatinine 11/21/2020 0.83 0.52 - 1.04 mg/dL Final ? ? eGFR 11/21/2020 84 >60 mL/min/1.73m2 Final eGFR calculated using CKD-EPI equation for non- Americans. Multiply eGFR by 1.16 for AfricanAmerican patients. ??? Total Protein 11/21/2020 6.7 6.3 - 8.2 g/dL Final ??? Albumin 11/21/2020 4.3 3.4 - 4.9 g/dL Final ??? Alkaline Phosphatase 11/21/2020 37* 38 - 126 U/L Final ??? AST 11/21/2020 24 15 - 46 U/L Final ? ? ALT 11/21/2020 20 <35 U/L Final ? ? Bilirubin, Total 11/21/2020 <0.5 <1.4 mg/dL Final ??? Calcium 11/21/2020 10.3 8.5 - 10.5 mg/dL Final ??? Calculated Calcium 11/21/2020 10.1 8.5 - 10.5 mg/dL Final ??? Magnesium 11/21/2020 2.1 1.7 - 2.8 mg/dL Final ??? Conjugated Bilirubin 11/21/2020 0.0 0.0 - 0.3 mg/dL Final ??? Unconjugated Bilirubin 11/21/2020 0.1 0.0 - 1.1 mg/dL Final ASSESSMENT: ?Ms Dow is a 50-year-old female with a history of a [id number] invasive ductal carcinoma which was??ER positive, well-differentiated in 2011. She had a local recurrence February 2019. She is currently receiving monthly fulvestrant. Which she is tolerating better than tamoxifen which shehad in the past. She will also receive zometa every 6 months. PLAN: 1. Fulvestrant 500mg Monthly. November dose in Jan dose back here 2. Zometa will plan for the end of Jan 2021. 3. Next bone density scan would be due April 2021 4. Continued follow up with Dr Cameron who she sees in April 2020 5. Follow-up return in 3 months when she will be receiving Faslodex [...] Poppy Felton PA-C 111 [facility] 2 [place], [place] [phone] (Wo rk) 05/30/2022 Office Visit Surgical Oncology Asa Cameron MD 111 [facility] 2 [place], [place] [phone] (Wo rk) documented as of this encounter Visit Diagnoses Diagnosis Recurrent cancer of right breast (HCC-CM S) (HCC) - Primary documented in this encounter Orders Appointment Requests Count Last Ordered Date First Ord ered Date ONCBCN CLINIC APPOINTMENT REQUEST 1 12/14/2020 documented in this encounter Care Teams Bilingual Customer Service Specialist Relationship Specialty Start Date End Date Filomena Ochoa PA-C PCP - General 03/02/18 2 [place] [phone] documented as of this encounter
--- OUTSIDE RECORDS SUMMARY | 2021-11-29 00:23 | XMS_ITS | Encounter Summary ---
:1970 Author Organization [facility] Address [address] [place] [address] Care Team Providers Name Role Phone Filomena Ochoa PA-C Primary Care Provider [phone] Reason for Visit Reason Onset Date Comments Medications Refill 11/19/2020 Encounter Details Date Type Department Care Team Description 11/19/2020 Refill [facility] Adult Nova Ochoa, Medications Refill Primary Care - Hallie GUDINO [address] [place] [address] [place], [place] [phone] (Wo rk) Social History Tobacco Use [...] Take 1 capsule by 84 capsule 0 02/18/2021 40 mg capsule mouth every morning for 84 days. Daily Max: 40 mg documented in this encounter Miscellaneous Notes Telephone Encounter - Filomena Ochoa PA-C - 11/20/20202032 EDT Changed to 84 day rx. Eprescribed. elephone Encounter - Merlyn Drake RN - 11/20/20201910 EDT From: Jia Dow To: Office of Filomena Ochoa PA-C Sent: 11/19/2020 15:16 EDT Subject: Medication Renewal Request Refills have been requested for the following medications: lisdexamfetamine (VYVANSE) 40 mg capsule [Filomena H Bushweller, PA-C] Patient Comment: Can I please resume this prescription as a 3 month mail order, rather than 28 day local potato picker? This is how it's been done in the past and saves me money and time. Thanks! Preferred pharmacy: [facility] - [address] documented in this encounter Plan of Treatment Upcoming Encounters Date Type Specialty Care Team Description 12/16/2021 Appointment Infusion Therapy 04/15/2022 Office Visit Hematology and Oncology Poppy Felton PA-C 111 [facility] 2 [place], [place] [phone] (Wo rk) 05/30/2022 Office Visit Surgical Oncology Asa Cameron MD [address] [phone] (Wo rk) documented as of this encounter Visit Diagnoses Not on filedocumented in this encounter Discontinued Medications Medication Sig Discontinue Reason Start Date End Date lisdexamfetamine (VYVANSE) Take 1 capsule by Reorder 1 11/19/2020 40 mg capsule mouth every morning for 28 days. Daily Max: 40 mg documented as of this encounter Care Teams Shoe Lay Out Planner Relationship Specialty Start Date End Date Filomena Ochoa PA-C PCP - General 03/02/18 2 [place] [phone] documented as of this encounter
--- OUTSIDE RECORDS SUMMARY | 2021-11-29 00:23 | XMS_ITS | Encounter Summary ---
:1970 Author Organization [facility] Address [address] [place] [address] Care Team Providers Name Role Phone Filomena Ochoa PA-C Primary Care Provider Reason for Visit Reason Onset Date Comments Appointment Related 05/09/2021 Encounter Details Date Type Department Care Team Description 05/09/2021 Telephone [facility] Asa Cameron MD Appointment Related Surgical Oncology - [address] [place] [address], [address], [address] [place], [place] [address] [place] [address] [phone] (Wo rk) Social History Tobacco Use [...] Notes Telephone Encounter - Mary Landers - 05/09/2021 1124 EDT Gave pt a call to offer her an a sooner appt off of Dr. Cameron's waitlist. I was offering her an opening on: 05/10/2021 @ 1:00pm. The patient stated that she wanted a few minutes before deciding. I let the patient know that I would send her a secure imprivata text message that she can respond to (so the patient doesn't have to wait on hold when calling us back) Mary Landers 05/09/2021 11:27 received a text message back from the patient: thank you so much Mary! Unfortunately I won't be able to make this appointment tomorrow, but please do let me know if another one comes available, especially with a little more notice. And thank you so much! I sent the patient back a message: no worries, I will of course keep you on his wait list. Should anew opening become available we will give you a call. Thanks, Mary Landers 05/09/2021 13:39 documented in this encounter Plan of Treatment Upcoming Encounters Date Type Specialty Care Team Description 12/16/2021 Appointment Infusion Therapy 04/15/2022 Office Visit Hematology and Oncology Poppy Felton PA-C 111 [facility] 2 [place], [place] [phone] (Wo rk) 05/30/2022 Office Visit Surgical Oncology Asa Cameron MD [address] [phone] (Wo rk) documented as of this encounter Visit Diagnoses Not on filedocumented in this encounter Care Teams Key Person Relationship Specialty Start Date End Date Filomena Ochoa PA-C PCP - General 03/02/[address] [place] [phone] documented as of this encounter
--- OUTSIDE RECORDS SUMMARY | 2021-11-29 00:23 | XMS_ITS | Encounter Summary ---
:1970 Author Organization [facility] Address [address] [place] [address] Care Team Providers Name Role Phone Filomena Ochoa PA-C Primary Care Provider [phone] Encounter Details Date Type Department Care Team Description 06/14/2021 Orders Only [facility] Cancer Center Jessi Pleitez MD PhD Hematology & Oncology - [address] [place] [address] 2 [place], [place] [phone] [place] [phone] (Wo rk) Social History Tobacco Use Types [...] Hematology and Oncology Poppy Felton PA-C 111 [facility] 2 [place], [place] [phone] (Wo rk) 05/30/2022 Office Visit Surgical Oncology Asa Cameron MD [address] [phone] (Wo rk) documented as of this encounter Visit Diagnoses Not on filedocumented in this encounter Care Teams Forest Fire Management Officer Relationship Specialty Start Date End Date Filomena Ochoa PA-C PCP - General 03/02/[address] [place] [phone] documented as of this encounter
--- OUTSIDE RECORDS SUMMARY | 2021-11-29 00:23 | XMS_ITS | Encounter Summary ---
:1970 Author Organization [facility] Address [address] [place] [address] Care Team Providers Name Role Phone Filomena Ochoa PA-C Primary Care Provider [phone] Reason for Referral Prior Authorization (See Order Priority) - Authorized Specialty Diagnoses / Procedures Referred By Contact Refer red To Contact Infusion Therapy Diagnoses Recurrent cancer of right breast (HCC-CMS) (HCC) Jessi Pleitez MD PhD [facility] Adult Infusion 111 [facility] 4 [facility], [address], [address] 2 [place], [place] [address] [place] [address] Phone: [phone] Referral ID Status Reason Start Expiration Visits Visits Date Date Requested Authorized [id number] Authorized Specialty 08/21/2021 08/21/2022 3 3 Services Required Question Answer Is this appt for transfusion, medication, test or inje ction? Infusion How many infusions need to be ordered for appt? 1 Infusion Name Other Please specify: zometa Infusion Dose 4mg What is the infusion frequency? every 6 months Is this the first dose of infusion(s)? No Are labs to be obtained during the appt? No Have orders been place for this appt? (i.e.: Blood Tra nsfusion Order Yes Set, Therapy Plan, Lab Orders, Supportive Plan, Etc) Comments Please schedule on 02/20 after appts in hem onc around 3:30 Reason for Visit Prior Authorization (Routine/Next Available) - Closed Specialty Diagnoses / Referred By Contact Referred To Contact Procedures Hematology and Diagnoses Recurrent cancer of right breast ([facility]) ([facility]) Jessi Pleitez, PhD Ep2 Hem/Onc Oncology 111 [facility] 111 [place] [address] Pavilion, Level 2 [place], [place] Fax: [phone] Referral ID Status Reason Start Date Expiration Date Visits Requ ested Visits Authorized [id number] Closed Other 06/26/2020 06/26/2021 2 2 Encounter Details Date Type Department Care Team Description 02/20/2021 Hospital Encounter [facility] Rec urrent cancer of Ambulatory Infusion right br east ([facility]) Center ([facility]) (Primary Dx) [address] [place], [place] [id number] Social History Tobacco Use Types Packs/Day Years [...] FIND as needed. Med 0 Name: [facility] buPROPion (WELLBUTRIN XL) TAKE 1 TABLET 90 Tab 3 021 05/08/2021 300 mg XL DAILY tabletIndications: Depression, unspecified depression type lisdexamfetamine (VYVANSE) Take 1 capsule by 28 capsule 0 03/21/2021 40 mg capsule mouth every morning for 28 days. Daily Max: 40 mg LORazepam (ATIVAN) 0.5 mg Take 1 Tablet by 10 Tablet 1 08/202003/21/2021 tablet mouth at bedtime as needed for Anxiety or Sleep. Daily Max: 0.5 mg ondansetron (ZOFRAN-ODT) 4 Take 1 Tab by 10 Tab 0 201905/12/2021 mg disintegrating mouth every 8 tabletIndications: hours as needed Recurrent cancer of right for Nausea. breast (HCC-CMS) (HCC) traZODone (DESYREL) 100 mg Take 1 Tab by 90 Tab 3 202002/22/2021 tablet mouth at bedtime. documented as of this encounter Discharge Disposition Disposition Code Departure Means Destination Home or Self Group Home documented in this encounter Progress Notes Audelia Rivero RN - 02/20/2021 1530 EST Jia Dow arrived to [facility] for Zometa infusion related to diagnosis code of C50.911 Identification verified verbally and on patient wristband. Allergies verified and vital signs taken. Action: A PIV was placed by RN with one attempt pt tolerated well. Premedications:None I Main medication: Zometa 4mg Infusion started at 1524 Infusion completed at 1551. pt tolerated infusion well, no s/s of reaction. Zoledronic Acid was administered and titrated as per manufacturers directions and therapy protocol. PIV flushed with NS per protocol, removed, clean, sterile dressing applied; pt tolerated PIV removal with no adverse issues. Patient educated to call if complications or any concerns any time. Reminded of over the counter medications (ie benadryl and tylenol) to use at home for side effects of sensitivity/ allergic reaction and to call clinic and/or 911 for difficulty breathing and/or chest pain. Patient discharged home. documented in this encounter Plan of Treatment Upcoming Encounters Date Type Specialty Care Team Description 12/16/2021 Appointment Infusion Therapy 04/15/2022 Office Visit Hematology and Oncology Poppy Felton PA-C [address] [phone] (Larissa felder) 05/30/2022 Office Visit Surgical Oncology Asa Cameron MD [address] [phone] (Larissa felder) Scheduled Referrals Name Type Priority Associated Order Schedule Diagnoses AMB CONS/FOLLOW Outpatient Routine/Next Recurrent cancer 1 Occurr ences [facility] Referral Available of right breast starting INFUSIONS (HCC-CMS) ([facility]) 02/20/2021 u ntil 02/20/2021 documented as of this encounter Visit Diagnoses Diagnosis Recurrent cancer of right breast (HCC-CM S) (HCC) - Primary documented in this encounter Administered Medications Inactive Administered Medications - up to 3 most recent administrations Medication Order MAR Action Action Date Dose Rate Site zoledronic acid (ZOMETA) 4 mg/100 mL New Bag 02/20/2021 15:24 EST 4 mg IVPB 4 mg 4 mg, intravenous, Administer over 20 Minutes, NOW X1, 1 dose, On Thu02/20/21 at 1230, Routine documented in this encounter Orders Medications Ordered That Might Not Have Count Last Ord ered Date First Ordered Date Been Administered diphenhydrAMINE (BENADRYL) injection 50 mg 1 02/20 EPINEPHrine (ADRENALIN) injection 0.3 mg 1 021 methylPREDNISolone sod suc(PF) 1 02/20/2021 (SOLU-MEDROL) injection 100 mg sodium chloride 0.9 % (NS) infusion 1 02/20/2021 Nursing Count Last Ordered Date First Ordered Date INFORMED CONSENT 1 02/20/2021 NURSING COMMUNICATION 1 02/20/2021 documented in this encounter Care Teams Bowling Alley Mechanic Relationship Specialty Start Date End Date Filomena Ochoa PA-C PCP - General 03/02/18 2 [place] [phone] documented as of this encounter
--- OUTSIDE RECORDS SUMMARY | 2021-11-29 00:23 | XMS_ITS | Encounter Summary ---
:1970 Author Organization [facility] Address [address] [place] [address] Care Team Providers Name Role Phone Filomena Ochoa PA-C Primary Care Provider [phone] Reason for Visit Reason Onset Date Comments Coordination Of Care 11/09/2020 Encounter Details Date Type Department Care Team Description 11/09/2020 Telephone [facility] Hematology & Oncology - L[facility] [place] [address] [place] [address] Social History Tobacco Use Types [...] Encounter - Carmen Overton RN - 11/09/2020 1209 EDT Called and spoke to the Cancer [facility] in [place] which pt will need to have her injection in Nov and possible December. Their office will fax order form to be completed and will need to be faxed back to them along with labs and office notes. documented in this encounter Plan of Treatment Upcoming Encounters Date Type Specialty Care Team Description 12/16/2021 Appointment Infusion Therapy 04/15/2022 Office Visit Hematology and Oncology Poppy Felton PA-C 111 [facility] 2 [place], [place] [phone] (Larissa felder) 05/30/2022 Office Visit Surgical Oncology Asa Cameron MD 111 [facility], [facility] 2 [place], [place] [phone] (Larissa felder) documented as of this encounter Visit Diagnoses Not on filedocumented in this encounter Care Teams Strategic Marketing Associate Relationship Specialty Start Date End Date Filomena Ochoa PA-C PCP - General 03/02/18 2 [place] [phone] documented as of this encounter
--- OUTSIDE RECORDS SUMMARY | 2021-11-29 00:23 | XMS_ITS | Encounter Summary ---
:1970 Author Organization [facility] Address [address] [place] [address] Care Team Providers Name Role Phone Filomena Ochoa PA-C Primary Care Provider [phone] Reason for Visit Reason Onset Date Comments Medications Refill 10/26/2020 Encounter Details Date Type Department Care Team Description 10/26/2020 Refill [facility] Adult Nova Ochoa, Medications Refill Primary Care - Hallie GUDINO [address] [place] [address] [place], [place] [phone] (Wo rk) Social History Tobacco Use [...] Take 1 capsule by 28 capsule 0 11/19/2020 40 mg capsule mouth every morning for 28 days. Daily Max: 40 mg documented in this encounter Miscellaneous Notes Telephone Encounter - Filomena Ochoa PA-C - 10/26/20202056 EDT Eprescribed. elephone Encounter - Filomena Coker RN - 10/26/2020 8879 EDT From: Jia Dow To: Office of Filomena Ochoa PA-C Sent: 10/26/2020 16:00 EDT Subject: Medication Renewal Request Refills have been requested for the following medications: lisdexamfetamine (VYVANSE) 30 mg capsule [Filomena Ochoa PA-C] Patient Comment: 40 MG not 30 MG please! I was temporarily on 30 mg due to heart palpitations, but have returned to the 40 mg dose. Thank you! Preferr ed pharmacy: [id number] documented in this encounter Plan of Treatment Upcoming Encounters Date Type Specialty Care Team Description 12/16/2021 Appointment Infusion Therapy 04/15/2022 Office Visit Hematology and Oncology Poppy Felton PA-C [address] [phone] (Wo rk) 05/30/2022 Office Visit Surgical Oncology Asa Cameron MD [address] [phone] (Wo rk) documented as of this encounter Visit Diagnoses Not on filedocumented in this encounter Discontinued Medications Medication Sig Discontinue Reason Start Date End Date lisdexamfetamine (VYVANSE) Take 1 capsule by Reorder 1 10/26/2020 30 mg capsule mouth every morning for 28 days. Daily Max: 30 mg documented as of this encounter Care Teams Termite Treater Helper Relationship Specialty Start Date End Date Filomena Ochoa PA-C PCP - General 03/02/[address] [place] [phone] documented as of this encounter
--- OUTSIDE RECORDS SUMMARY | 2021-11-29 00:23 | XMS_ITS | Encounter Summary ---
:1970 Author Organization [facility] Address [address] [place] [address] Care Team Providers Name Role Phone Filomena Ochoa PA-C Primary Care Provider [phone] Encounter Details Date Type Department Care Team Description 04/22/2021 Orders Only [facility] Cancer Center Hematology [place], [place], & Oncology - Main Ca mpus RN [address] [place] [address] Social History Tobacco Use Types [...] Hematology and Oncology Poppy Felton PA-C [address] [phone] (Wo rk) 05/30/2022 Office Visit Surgical Oncology Asa Cameron MD [address] [phone] (Wo rk) documented as of this encounter Visit Diagnoses Not on filedocumented in this encounter Care Teams Prepared Foods Supervisor Relationship Specialty Start Date End Date Filomena Ochoa PA-C PCP - General 03/02/18 2 [place] [phone] documented as of this encounter
--- OUTSIDE RECORDS SUMMARY | 2021-11-29 00:23 | XMS_ITS | Encounter Summary ---
:1970 Author Organization [facility] Address [address] [place] [address] Care Team Providers Name Role Phone Filomena Ochoa PA-C Primary Care Provider [phone] Reason for Referral Prior Authorization (See Order Priority) - Authorized Specialty Diagnoses / Procedures Referred By Contact Refer red To Contact Infusion Therapy Diagnoses Recurrent cancer of right breast (HCC-CMS) (HCC) Jessi Pleitez MD PhD [facility] Adult Infusion 111 [facility] 4 [facility], [address], [address] [place], [place] [address] [place] [address] Phone: [phone] Referral ID Status Reason Start Expiration Visits Visits Date Date Requested Authorized [id number] Authorized Specialty 08/21/2021 08/21/2022 3 3 Services [...] after appts in hem onc around 3:30 Encounter Details Date Type Department Care Team Description 12/17/2020 Orders Only [facility] Cancer Center [place], [facility] cancer of Hematology & Oncology - LAMAR Morales rig breast ([facility]) Main [place] ([facility]) (Primary Dx) [address] [place] [address] Social History Tobacco Use Types Packs/Day Years [...] documented as of this encounter Progress Notes Carmen Overton RN - 12/17/2020 1124 EDT [email or web address] documented in this encounter Plan of Treatment Upcoming Encounters Date Type Specialty Care Team Description 12/16/2021 Appointment Infusion Therapy 04/15/2022 Office Visit Hematology and Oncology Poppy Felton PA-C 111 [facility] 2 [place], [place] [phone] (Wo rk) 05/30/2022 Office Visit Surgical Oncology Asa Cameron MD [address] [phone] (Wo rk) Scheduled Referrals Name Type Priority Associated Order Schedule Diagnoses AMB CONS/FOLLOW Outpatient Routine/Next Recurrent cancer Expected : UP [facility] 4 Referral Available of right breast 01/17/2021 INFUSIONS (HCC-CMS) (Approximate), Expires: 12/17/2021 documented as of this encounter Visit Diagnoses Diagnosis Recurrent cancer of right breast (HCC-CM S) (HCC) - Primary documented in this encounter Care Teams Electron Gun Inspector Relationship Specialty Start Date End Date Filomena Ochoa PA-C PCP - General 03/02/18 2 [place] [phone] documented as of this encounter
--- OUTSIDE RECORDS SUMMARY | 2021-11-29 00:23 | XMS_ITS | Encounter Summary ---
:1970 Author Organization [facility] Address [address] [place] [address] Care Team Providers Name Role Phone Filomena Ochoa PA-C Primary Care Provider [phone] Encounter Details Date Type Department Care Team Description 10/26/2020 Travel Social History Tobacco Use Types Packs/Day [...] Hematology and Oncology Poppy Felton PA-C [address] [phone] (Wo rk) 05/30/2022 Office Visit Surgical Oncology Asa Cameron MD [address] [phone] (Wo rk) documented as of this encounter Visit Diagnoses Not on filedocumented in this encounter Care Teams Electrician Ship Relationship Specialty Start Date End Date Filomena Ochoa PA-C PCP - General 03/02/18 2 [place] [phone] documented as of this encounter
--- OUTSIDE RECORDS SUMMARY | 2021-11-29 00:23 | XMS_ITS | Encounter Summary ---
:1970 Author Organization [facility] Address [address] [place] [address] Care Team Providers Name Role Phone Filomena Ochoa PA-C Primary Care Provider [phone] Reason for Visit Prior Authorization (Routine/Next Available) - Closed Specialty Diagnoses / Procedures Referred By Contact Refer red To Contact Hematology and Diagnoses Malignant neoplasm of female breast, unspecified estrogen receptor status, unspecified laterality, unspecified site of breast ([facility]) (HCC) Jessi Pleitez MD PhD Ep2 Hem/Onc Oncology [address] [place] [id number] [place] [address], Level 2 [place], [place] Fax: [phone] Referral ID Status Reason Start Date Expiration Date Visits Requ ested Visits Authorized [id number] Closed Other 02/06/2020 09/11/2021 15 15 Encounter Details Date Type Department Care Team Description 2021 Hospital Encounter [facility] Cancer Center Recu rrent cancer of Hematology & Oncology right breast ([facility]) [facility] ([facility]) (Primary Dx) [address] [place] [address] Social History Tobacco Use Types Packs/Day Years [...] Care documented in this encounter Progress Notes Coleen [place] RN - 2021 1530 EDT Out-patient Chemotherapy Note Patient presents to clinic today for cycle # 13 , day # 1 of Supportive care treatment plan. Reviewed lab results with patient LFT: Lab Results Component Value Date TBIL <0.5 2021 ALKPHOS 45 2021 AST 28 2021 ALT 25 2021 . Parameters for today???s treatment met Patient received Fulvestrant right and left upper outer gluteus region IM. Patient tolerating chemotherapy treatment at this time with no signs of reaction or side effects. Patient education: Patient educated on all medications administered today. Patient expressed understanding of education provided and no barriers identified She knows to contact team if there are any changes or concerns.i was supervised by dr. Jimenez who was present at the clinic and immediately available. COLEEN JACKSON RN 2021 15:17 documented in this encounter Miscellaneous Notes Addendum Note - Yanna Astudillo - 2021 1530 EDT Encounter addended by: Yanna Astudillo on: 05/26/2021 12:41 Actions taken: Charge Capture section accepted documented in this encounter Plan of Treatment Upcoming Encounters Date Type Specialty Care Team Description 12/16/2021 Appointment Infusion Therapy 04/15/2022 Office Visit Hematology and Oncology Poppy Felton PA-C 111 [facility] 2 [place], [place] [phone] (Wo rk) 05/30/2022 Office Visit Surgical Oncology Asa Cameron MD 111 [facility], [facility] 2 [place], [place] [phone] (Wo rk) documented as of this encounter Visit Diagnoses Diagnosis Recurrent cancer of right breast (HCC-CM S) (HCC) - Primary documented in this encounter Administered Medications Inactive Administered Medications - up to 3 most recent administrations Medication Order MAR Action Action Date Dose Rate Site fulvestrant (FASLODEX) injection 500 Given 2021 15:21 EDT 500 mg mg 500 mg, intramuscular, NOW X1, 1 dose, On 05/20/21 at 1545, Routine documented in this encounter Orders Medications Ordered That Might Not Have Count Last Ord ered Date First Ordered Date Been Administered fulvestrant (FASLODEX) injection 500 mg 1 05/21/19 22 Appointment Requests Count Last Ordered Date First Ord ered Date ONCBCN INFUSION APPOINTMENT REQUEST - 1 2021 CALCULATED documented in this encounter Care Teams Coating Machine Feeder Relationship Specialty Start Date End Date Filomena Ochoa PA-C PCP - General 03/02/18 2 [place] [phone] documented as of this encounter
--- OUTSIDE RECORDS SUMMARY | 2021-11-29 00:23 | XMS_ITS | Encounter Summary ---
:1970 Author Organization [facility] Address [address] [place] [address] Care Team Providers Name Role Phone Filomena Ochoa PA-C Primary Care Provider [phone] Reason for Visit Reason Comments Breast Cancer Radiology Services (Routine/Next Available) - Specialty Report Received Specialty Diagnoses / Procedures Referred By Contact Refer red To Contact Diagnoses Malignant neoplasm of female breast, unspecified estrogen receptor status, unspecified laterality, unspecified site of breast ([facility]) ([facility]) Jessi Pleitez MD PhD Procedures DXA DUAL XRAY ABSORPTIOMETRY FOR BONE DENSITY ([facility]) 111 [facility] 2 [place] [phone] Referral ID Status Reason Start Date Expiration Date Visits V isits Requested Authorized [id number] Specialty 03/20/2021 1 1 Report Received Encounter Details Date Type Department Care Team Description 06/12/2021 Procedure visit [facility] Center Rad, Tech 1, Malign ant neoplasm of female breast, unspecified estrogen receptor status, unspecified laterality, unspecified site of breast ([facility]) ([facility]); Endocrinology - Bernice beal MD Osteoporosis screening; [address] Encounter for monitoring [place] [address] Social History Tobacco Use Types Packs/Day Years [...] Sign Reading Time Taken Comments Blood Pressure - - Pulse - - Temperature - - Respiratory Rate - - Oxygen Saturation - - Inhaled Oxygen Concentration - - Weight 60.9 kg (134 lb 4.2 oz) 06/12/2021 1016 EDT Height 170 cm (5' 6.93) 06/12/2021 1016 EDT Body Mass Index 21.07 06/12/2021 1016 EDT documented in this encounter [...] documented as of this encounter Progress Notes Eva Woods, RT - 06/12/2021 1000 EDT Procedure Date: 06-12-2021 Referring Physician: Jessi Pleitez MD PhD Previous Scan Date: 07-11-2019 ABN Necessary: No There were no vitals taken for this visit. Done AP SPINE yes FEMUR yes TOTAL BODY FOREARM LVA/VFA HEEL US PATIENT HISTORY: Patient Active Problem List Diagnosis ??? Depression ??? ADHD (attention deficit hyperactivity disorder) ??? Episodic mood disorder (HCC-CMS) (HCC) ??? Malignant neoplasm of breast (HCC) ??? Radon exposure ??? Recurrent cancer of right breast (HCC-CMS) (HCC) ??? Asthma ??? S/P bilateral mastectomy ??? Seasonal allergies ??? Skipped heart beats ??? Elevated troponin Past Medical History: Diagnosis Date ??? Breast cancer (HCC-CMS) (HCC) 07/2011 ??? Complication of anesthesia N after general anesthesia ??? Environmental allergies ??? Mental disorder ??? Seborrheic dermatitis 12/20/2019 [facility] Additional Comments: Previous/Prior Comparison? Yes Pharmacologic? Yes Osteoporosis Center Patient Information Ethnicity/Race: Nutrition and Habits: Do you consume dairy? Yes Number of servings per day? 2-3 Do you take calcium supplements? No Amount? Do you drink 3 or more alcoholic beverages daily? No Have you now or have you had in the past an eating disorder? No Do you or have you smoked in the last 6 months? No Family History: Did your mother or father have a hip fracture? No Do you have a parent or sibling who suffered a broken hip, shoulder, wrist or ribs after age 45? No Patient History-Medications: Have you taken any of the following medications or treatments. (Now or in the past)?: Steroid (prednisone, cortisone, Medrol) 5mg. or more for at least 3 months? No Thyroid medication for thyroid cancer suppression? No Anticonvulsants (phenytoin, Dilantin, phenobarbital) No GnRH Agonist (for endometriosis or prostate cancer, Example - Lupron) No Depo Povera (Current use) No Aromatase inhibitor: Letrozol (Femera), Anastrozole (arimidex), Exemestane (Aromasin) No TZD's for diabetes (Actos, Avandia) No Medical History: Have you had any of the following?: Hyperthyroidism (over active thyroid) No Hyperparathyroidism (over active parathyroid, high blood calcium) No Kidney failure No Rheumatoid arthritis No Seizure disorder (epilepsy) No Diabetes mellitus No Bariatric surgery/Gastric bypass No Back Surgery No Back X-ray No Fractures after age 40 Yes Area: Radial head FX Treatments: Alendronate (Fosamax) Never, Date stopped: Calcitonin (Miacalcin) Never, Date stopped: Denosumab (Prolia) Never, Date stopped: Ibandronate (Boniva) Never, Date stopped: Pamidronate (Aredia) Never, Date stopped: Raloxifene (Evista) Never, Date stopped: Risendronate (Actonel) Never, Date stopped: Teriparatide (Forteo) Never, Date stopped: Zoledronic Acid (Reclast, Zomata) Currently X 2020, Date stopped: Other: Never, Date stopped: For Women Only: What was your age at menopause? N/A LMP 3 weeks ago PT jose preg Are you taking estrogen now or within the past year? Never, Date stopped: Have you been treated for breast cancer? Currently Comments: RT YULISA 06/11/2021 12:01 documented in this encounter Plan of Treatment Upcoming Encounters Date Type Specialty Care Team Description 12/16/2021 Appointment Infusion Therapy 04/15/2022 Office Visit Hematology and Oncology Poppy Felton PA-C [address] [phone] (Larissa felder) 05/30/2022 Office Visit Surgical Oncology Asa Cameron MD [address] [phone] (Larissa felder) documented as of this encounter Procedures Procedure Name Priority Date/Time Associated Diagnosis Comme nts DXA DUAL XRAY ABSORPTIOMETRY Routine 06/13/2021 Malignant ne oplasm of FOR BONE DENSITY ([facility] female breast, un specified PERFORMED) estrogen receptor status, unspecified laterality, unspecified site of breast ([facility]) ([facility]) documented in this encounter Results DXA DUAL XRAY ABSORPTIOMETRY FOR BONE DENSITY ([facility]) (06/13/2021) Pathologist Sig nature DEXA Bone Density DEXA Bone Density, External Anatomical Region Laterality Modality Other Specimen Narrative This result has an attachment that is no t available. documented in this encounter Visit Diagnoses Diagnosis Malignant neoplasm of female breast, uns pecified estrogen receptor status, unspecified laterality, unspecified site of breast ([facility]) ([facility]) Osteoporosis screening Special screening for osteoporosis Encounter for monitoring bisphosphonate therapy Encounter for therapeutic drug monitorin g documented in this encounter Care Teams Publication Distributor Relationship Specialty Start Date End Date Filomena Ochoa PA-C PCP - General 03/02/18 2 [place] [phone] documented as of this encounter
--- OUTSIDE RECORDS SUMMARY | 2021-11-29 00:23 | XMS_ITS | Encounter Summary ---
:1970 Author Organization [facility] Address [address] [place] [address] Care Team Providers Name Role Phone Filomena Ochoa PA-C Primary Care Provider [phone] Encounter Details Date Type Department Care Team Description 10/26/2020 Ancillary Procedure [facility] Surgical Oncology - Main [address] [address] Social History Tobacco Use Types [...] Hematology and Oncology Poppy Felton PA-C [address] [phone] (Wo rk) 05/30/2022 Office Visit Surgical Oncology Asa Cameron MD [address] [phone] (Wo rk) documented as of this encounter Procedures Procedure Name Priority Date/Time Associated Diagnosis Comme nts [facility] - Routine 10/26/2020 12:02 Results for this BREAST CARE CENTER EDT procedure are in ONLY the results section. documented in this encounter Results [facility] BREAST - BREAST CARE CENTER ONLY (10/26/2020 12:02 EDT) Specimen Narrative [facility] POINT OF CARE - 10/26/2020 12:02 E DT This is a non-reportable exam. Performing Organization Address City/State/ZIP Code Phon e Number [facility] documented in this encounter Visit Diagnoses Not on filedocumented in this encounter Care Teams Director Product Management Relationship Specialty Start Date End Date Filomena Ochoa PA-C PCP - General 03/02/18 2 [place] [phone] documented as of this encounter
--- OUTSIDE RECORDS SUMMARY | 2021-11-29 00:23 | XMS_ITS | Encounter Summary ---
:1970 Author Organization [facility] Address [address] [place] [address] Care Team Providers Name Role Phone Filomena Ochoa PA-C Primary Care Provider [phone] Encounter Details Date Type Department Care Team Description 05/14/2021 Orders Only [facility] Cancer Center Hematology [place], [place], & Oncology - Main Ca mpus RN [address] [place] [address] Social History Tobacco Use Types [...] Hematology and Oncology Poppy Felton PA-C [address] [phone] (Wo rk) 05/30/2022 Office Visit Surgical Oncology Asa Cameron MD [address] [phone] (Wo rk) documented as of this encounter Visit Diagnoses Not on filedocumented in this encounter Care Teams Net Software Engineer Relationship Specialty Start Date End Date Filomena Ochoa PA-C PCP - General 03/02/18 2 [place] [phone] documented as of this encounter
--- OUTSIDE RECORDS SUMMARY | 2021-11-29 00:23 | XMS_ITS | Encounter Summary ---
:1970 Author Organization [facility] Address [address] [place] [address] Care Team Providers Name Role Phone Filomena Ochoa PA-C Primary Care Provider [phone] Encounter Details Date Type Department Care Team Description 05/31/2021 Ancillary Procedure [facility] Surgical Oncology - Main [address] [address] Social History Tobacco Use Types [...] Hematology and Oncology Poppy Felton PA-C [address] [phone] (Wo rk) 05/30/2022 Office Visit Surgical Oncology Asa Cameron MD [address] [phone] (Wo rk) documented as of this encounter Procedures Procedure Name Priority Date/Time Associated Diagnosis Comme nts [facility] US BREAST - Routine 05/31/2021 16:29 Results for this BREAST CARE CENTER EDT procedure are in ONLY the results section. documented in this encounter Results [facility] BREAST - BREAST CARE CENTER ONLY (05/31/2021 16:29 EDT) Specimen Narrative [facility] POINT OF CARE - 05/31/2021 16:29 E DT This is a non-reportable exam. Performing Organization Address City/State/ZIP Code Phon e Number [facility] documented in this encounter Visit Diagnoses Not on filedocumented in this encounter Care Teams Implementation Architect Relationship Specialty Start Date End Date Filomena cOhoa PA-C PCP - General 03/02/18 2 [place] [phone] documented as of this encounter
--- OUTSIDE RECORDS SUMMARY | 2021-11-29 00:23 | XMS_ITS | Encounter Summary ---
:1970 Author Organization [facility] Address [address] [place] [address] Care Team Providers Name Role Phone Filomena Ochoa PA-C Primary Care Provider Reason for Visit Reason Comments Injections Prior Authorization (Routine/Next Available) - Closed Specialty Diagnoses / Procedures Referred By Contact Refer red To Contact Hematology and Diagnoses Malignant neoplasm of female breast, unspecified estrogen receptor status, unspecified laterality, unspecified site of breast ([facility]) (HCC) Jessi Pleitez MD PhD Ep2 Hem/Onc Oncology [address] [place] [phone] [place] [address], Level 2 [place], [place] Fax: [phone] Referral ID Status Reason Start Date Expiration Date Visits Requ ested Visits Authorized [id number] Closed Other 02/06/2020 09/11/2021 15 15 Encounter Details Date Type Department Care Team Description 11/21/2020 Hospital Encounter [facility] Cancer Center Recu rrent cancer of Hematology & Oncology right breast ([facility]) - [facility] (Primary Dx) [address] [place] [address] Social History Tobacco Use Types Packs/Day Years [...] / COVID-19? documented as of this encounter Last Filed Vital Signs Vital Sign Reading Time Taken Comments Blood Pressure 128/66 11/21/2020 1118 EDT Pulse 62 11/21/2020 1118 EDT Temperature 36.2 ??C (97.2 ??F) 11/21/2020 1118 EDT Respiratory Rate 16 11/21/2020 1118 EDT Oxygen Saturation 100% 11/21/2020 1118 EDT Inhaled Oxygen Concentration - - Weight - - Height 169 cm (5' 6.54) 11/21/2020 1118 EDT Body Mass Index - - documented in this encounter Functional Status Functional [...] type lisdexamfetamine (VYVANSE) Take 1 capsule by 84 capsule 0 02/18/2021 40 mg capsule mouth every morning for 84 days. Daily Max: 40 mg LORazepam (ATIVAN) 0.5 mg Take 1 Tablet by 10 Tablet 1 07/08/202003/21/2021 tablet mouth at bedtime as needed for [...] encounter Progress Notes Lisseth Armenta RN - 11/21/2020 1030 EDT Today is cycle 9 of treatment for Jia. Her labs were drawn prior to treatment. I administered the IM injections in her right and left ventrogluteal sites and they were well tolerated. Jia relaxes best by lying down for injections. She did not have concerns regarding her treatment. I was supervised by Dr. Pleitez who was present and immediately available at the clinic. Lisseth Armenta RN 11/21/2020 1138 documented in this encounter Miscellaneous Notes Addendum Note - Yanna Astudillo - 11/21/2020 1030 EDT Encounter addended by: Yanna Astudillo on: 11/23/2020 15:45 Actions taken: Charge Capture section accepted documented in this encounter Plan of Treatment Upcoming Encounters Date Type Specialty Care Team Description 12/16/2021 Appointment Infusion Therapy 04/15/2022 Office Visit Hematology and Oncology Poppy Felton PA-C 111 [facility], [facility] 2 [place], [place] [phone] (Wo rk) 05/30/2022 Office Visit Surgical Oncology Asa Cameron MD 111 [facility] 2 [place], [place] [phone] (Wo rk) documented as of this encounter Visit Diagnoses Diagnosis Recurrent cancer of right breast (HCC-CM S) (HCC) - Primary documented in this encounter Administered Medications Inactive Administered Medications - up to 3 most recent administrations Medication Order MAR Action Action Date Dose Rate Site fulvestrant (FASLODEX) injection 500 Given 11/21/2020 11:17 EDT 500 mg mg 500 mg, intramuscular, NOW X1, 1 dose, On 11/21/20 at 1115, Routine documented in this encounter Orders Medications Ordered That Might Not Have Count Last Ord ered Date First Ordered Date Been Administered fulvestrant (FASLODEX) injection 500 mg 1 11/22/19 21 Appointment Requests Count Last Ordered Date First Ord ered Date ONCBCN INFUSION APPOINTMENT REQUEST - 1 11/21/2020 CALCULATED documented in this encounter Care Teams Cheese Cook Relationship Specialty Start Date End Date Filomena Ochoa PA-C PCP - General 03/02/18 2 [place] [phone] documented as of this encounter
--- OUTSIDE RECORDS SUMMARY | 2021-11-29 00:23 | XMS_ITS | Encounter Summary ---
:[address] [facility] Address [address] [place] [address] Care Team Providers Name Role Phone Filomena Ochoa PA-C Primary Care Provider [phone] Encounter Details Date Type Department Care Team Description 05/31/2021 Travel Social History Tobacco Use Types Packs/Day [...] Hematology and Oncology Poppy Felton PA-C [address] [phone] (Wo rk) 05/30/2022 Office Visit Surgical Oncology Asa Cameron MD [address] [phone] (Wo rk) documented as of this encounter Visit Diagnoses Not on filedocumented in this encounter Care Teams Telephone Supervisor Relationship Specialty Start Date End Date Filomena Ochoa PA-C PCP - General 03/02/[address] [place] [phone] documented as of this encounter
--- OUTSIDE RECORDS SUMMARY | 2021-11-29 00:23 | XMS_ITS | Encounter Summary ---
:1970 Author Organization [facility] Address [address] [place] [address] Care Team Providers Name Role Phone Filomena Ochoa PA-C Primary Care Provider [phone] Encounter Details Date Type Department Care Team Description 03/01/2021 Orders Only [facility] Cancer [facility], Recurrent cancer of Hematology & Oncology - LAMAR Morales [facility] breast ([facility] [place] ([facility]) (Primary Dx) [address] [place] [address] Social History Tobacco Use Types [...] encounter Progress Notes Carmen Overton RN - 03/01/2021 1219 EST Pt called to report the pharmacy did receive the prescription for CS testosterone vaginal cream. documented in this encounter Plan of Treatment Upcoming Encounters Date Type Specialty Care Team Description 12/16/2021 Appointment Infusion Therapy 04/15/2022 Office Visit Hematology and Oncology Poppy Felton PA-C [address] [phone] (Wo rk) 05/30/2022 Office Visit Surgical Oncology Asa Cameron MD [address] [phone] (Wo rk) documented as of this encounter Visit Diagnoses Diagnosis Recurrent cancer of right breast (HCC-CM S) (HCC) - Primary documented in this encounter Care Teams Timber Robber Relationship Specialty Start Date End Date Filomena Ochoa PA-C PCP - General 03/02/[address] [place] [phone] documented as of this encounter
--- OUTSIDE RECORDS SUMMARY | 2021-11-29 00:23 | XMS_ITS | Encounter Summary ---
:1970 Author Organization [facility] Address [address] [place] [address] Care Team Providers Name Role Phone Filomena Ochoa PA-C Primary Care Provider [phone] Encounter Details Date Type Department Care Team Description 06/13/2021 Transcribe Orders [facility] Maye Giles, Endocrinology - [address] [phone] Social History Tobacco Use Types Packs/Day Years [...] and Oncology Poppy Felton PA-C [address] [phone] (Wo rk) 05/30/2022 Office Visit Surgical Oncology Asa Cameron MD [address] [phone] (Wo rk) documented as of this encounter Visit Diagnoses Not on filedocumented in this encounter Care Teams Hand Singer Relationship Specialty Start Date End Date Filomena Ochoa PA-C PCP - General 03/02/18 2 [place] [phone] documented as of this encounter
--- OUTSIDE RECORDS SUMMARY | 2021-11-29 00:23 | XMS_ITS | Encounter Summary ---
:1970 Author Organization [facility] Address [address] [place] [address] Care Team Providers Name Role Phone Filomena Ochoa PA-C Primary Care Provider [phone] Encounter Details Date Type Department Care Team Description 03/18/2021 Orders Only [facility] Cancer Center Hematology & Bharat Singletary manufacturing scheduler - [facility] [address] [place] [address] Social History Tobacco [...] Hematology and Oncology Poppy Felton PA-C [address] [phone] (Wo rk) 05/30/2022 Office Visit Surgical Oncology Asa Cameron MD [address] [phone] (Wo rk) documented as of this encounter Visit Diagnoses Not on filedocumented in this encounter Care Teams Cafeteria Supervisor Relationship Specialty Start Date End Date Filomena Ochoa PA-C PCP - General 03/02/18 2 [place] [phone] documented as of this encounter
--- OUTSIDE RECORDS SUMMARY | 2021-11-29 00:23 | XMS_ITS | Encounter Summary ---
:1970 Author Organization [facility] Address [address] [place] [address] Care Team Providers Name Role Phone Filomena Ochoa PA-C Primary Care Provider [phone] Encounter Details Date Type Department Care Team Description 02/26/2021 Orders Only [facility] Cancer Center Allen Adan ironmolder & Oncology - [address] [place], [place] [phone] [place] [phone] Social History Tobacco Use Types Packs/Day Years [...] documented as of this encounter Progress Notes Minerva Adan RN - 02/26/2021 1224 EST Left a message with [facility] for a cs testosterone cream to be refill for thept. documented in this encounter Plan of Treatment Upcoming Encounters Date Type Specialty Care Team Description 12/16/2021 Appointment Infusion Therapy 04/15/2022 Office Visit Hematology and Oncology Poppy Felton PA-C 111 [facility] 2 [place], [place] [phone] (Wo rk) 05/30/2022 Office Visit Surgical Oncology Asa Cameron MD [address] [phone] (Wo rk) documented as of this encounter Visit Diagnoses Not on filedocumented in this encounter Care Teams [place] Guide Relationship Specialty Start Date End Date Filomena Ochoa PA-C PCP - General 03/02/[address] [place] [phone] documented as of this encounter
--- OUTSIDE RECORDS SUMMARY | 2021-11-29 00:23 | XMS_ITS | Encounter Summary ---
:1970 Author Organization [facility] Address [address] [place] [address] Care Team Providers Name Role Phone Filomena Ochoa PA-C Primary Care Provider [phone] Encounter Details Date Type Department Care Team Description 11/08/2020 Orders Only [facility] Cancer Center Jessi Pleitez MD PhD Hematology & Oncology - [address] [place] [address] [address] [place], [place] [phone] [place] [phone] (Wo rk) Social History Tobacco Use Types [...] Hematology and Oncology Poppy Felton PA-C 111 [facility] 2 [place] [phone] (Wo rk) 05/30/2022 Office Visit Surgical Oncology Asa Cameron MD [address] [phone] (Wo rk) documented as of this encounter Visit Diagnoses Not on filedocumented in this encounter Care Teams Market Asset Protection Manager Relationship Specialty Start Date End Date Filomena Ochoa PA-C PCP - General 03/02/[address] [place] [phone] documented as of this encounter
--- OUTSIDE RECORDS SUMMARY | 2021-11-29 00:23 | XMS_ITS | Encounter Summary ---
:1970 Author Organization [facility] Address [address] [place] [address] Care Team Providers Name Role Phone Filomena Ochoa PA-C Primary Care Provider [phone] Encounter Details Date Type Department Care Team Description 02/20/2021 Phlebotomy Only [facility] Blood Doctor, Recurr ent cancer of Hematology & Oncology [facility] Hem Onc [facility] (HCC-CMS) (HCC) 111 [facility] (Primary Dx) [place] [address] Social History Tobacco Use Types [...] encounter Progress Notes Tonny Richardson MA - 02/20/2021 1346 EST Venipuncture performed for Dittus Per orders of Pricilla Number of attempts 1 RT AC I was supervised by Pricilla who was present and immediately available in the office suite. TONNY RICHARDSON MA 02/20/2021 14:05 documented in this encounter Plan of Treatment Upcoming Encounters Date Type Specialty Care Team Description 12/16/2021 Appointment Infusion Therapy 04/15/2022 Office Visit Hematology and Oncology Poppy Felton PA-C 111 [facility] 2 [place], [place] [phone] (Larissa felder) 05/30/2022 Office Visit Surgical Oncology Asa Cameron MD 111 [facility] [place] [facility] 2 [place], [place] [phone] (Larissa felder) documented as of this encounter Procedures Procedure Name Priority Date/Time Associated Comments Diagnosis COMPREHENSIVE STAT 02/20/2021 14:02 Recurrent cancer of Res ults for this METABOLIC PANEL EST right breast procedure ar e in (ONCOLOGY USE ONLY-INC (HCC-CMS) (HCC) th e results MG) section. documented in this encounter Results (ABNORMAL) COMPREHENSIVE METABOLIC PANEL (ONCOLOGY USE ONLY-INC MG) (02/20/2021 14:02 EST) Pathologist Sig nature Sodium 135 (L) 136 - 145 [facility] mmol/L LABORATORY SERVICES Potassium 4.1 3.5 - 5.0 [facility] mmol/L LAB[facility]ORY SERVICES Chloride 101 96 - 110 mmol/L [facility] CO2 Total 28 22 - 32 mmol/L [facility] Glucose 93 70 - 100 mg/dL [facility] BUN 18 10 - 26 mg/dL [facility] Creatinine 0.95 0.52 - 1.04 [facility] mg/dL LAB[facility]ORY SERVICES eGFR 71 >60 [facility] mL/min/1.73m2 LAB[facility] Total Protein 7.0 6.3 - 8.2 g/dL [facility] Albumin 4.1 3.4 - 4.9 g/dL [facility] Alkaline Phosphatase 55 38 - 126 U/L [facility] AST 29 15 - 46 U/L [facility] ALT 22 <35 U/L [facility] Bilirubin, Total <0.5 <1.4 mg/dL [facility] Calcium 9.8 8.5 - 10.5 [facility] mg/dL LAB[facility] Magnesium 2.1 1.7 - 2.8 mg/dL [facility] Albumin/Globulin 1.4 1.0 - 2.5 [facility] Ratio [facility] Anion Gap 6 (L) 8 - 16 [facility] SERVICES Specimen Blood - Venous blood (substance) Performing Organization Address City/State/ZIP Code Phon e Number [facility]ORY [address] [place] [address] SERVICES documented in this encounter Visit Diagnoses Diagnosis Recurrent cancer of right breast (HCC-CM S) (HCC) - Primary documented in this encounter Care Teams Expander Machine Operator Relationship Specialty Start Date End Date Filomena Ochoa PA-C PCP - General 03/02/18 [address] [place] [phone] documented as of this encounter
--- OUTSIDE RECORDS SUMMARY | 2021-11-29 00:23 | XMS_ITS | Encounter Summary ---
:1970 Author Organization [facility] Address [address] [place] [address] Care Team Providers Name Role Phone Filomena Ochoa PA-C Primary Care Provider [phone] Reason for Visit Reason Comments Medications Refill Depression, ADHD Encounter Details Date Type Department Care Team Description 05/08/2021 Office Visit [facility] Gabriela, Attention deficit hyperactivity disorder (ADHD), unspecified ADHD type (Primary Dx); Adult Primary Care - TANIYA Huang Depression, unspecified depression type Hallie [address] [place] [address] [place] [phone] Social History Tobacco Use Types Packs/Day Years [...] Sign Reading Time Taken Comments Blood Pressure 100/66 05/08/2021 1056 EDT Pulse 60 05/08/2021 1056 EDT Temperature 36.2 ??C (97.2 ??F) 05/08/2021 1056 EDT Respiratory Rate 12 05/08/2021 1056 EDT Oxygen Saturation - - Inhaled Oxygen Concentration - - Weight 64.6 kg (142 lb 6.4 oz) 05/08/2021 1056 EDT Height - - Body Mass Index 22.62 03/20/2021 1043 EST documented in this encounter Functional Status Functional [...] mouth daily. tabletIndications: Depression, unspecified depression type traZODone (DESYREL) 100 mg Take 1.5 Tablets 135 Tablet 3 tablet by mouth at bedtime. lisdexamfetamine (VYVANSE) Take 1 capsule by 84 capsule 0 08/07/2021 40 mg capsule mouth every morning for 84 days. Daily Max: 40 mg documented in this encounter Progress Notes Filomena Ochoa PA-C - 05/08/2021 1045 EDT Subjective: Patient ID: Jia Dow is an 50 y.o. female. Chief Complaint Patient presents with ??? Medications Refill Depression, ADHD Pt has been feeling well. She has felt some shooting pain in her left lateral knee at times. This isnot bothering her now. She has been feeling well. She has been seeing Oncology for a monthly injection of faslodex. She has been able to focus/concentrate OK with the vyvanse. She had no baca x 6mo. Her menses returned recently. She has not had hot flashes recently. She has been mountain biking regularly which has been extremely helpful for her. Patient Active Problem List Diagnosis ??? Depression ??? ADHD (attention deficit hyperactivity disorder) ??? Episodic mood disorder (HCC-CMS) (HCC) ??? Malignant neoplasm of breast (HCC) ??? Radon exposure ??? Recurrent cancer of right breast (HCC-CMS) (HCC) ??? Asthma ??? S/P bilateral mastectomy ??? Seasonal allergies ??? Skipped heart beats ??? Elevated troponin Outpatient Medications Marked as Taking for the 05/08/21 encounter (Office Visit) with Filomena Ochoa PA-C Medication Sig Note Dispense Refill ??? buPROPion (WELLBUTRIN XL) 300 mg XL tablet TAKE 1 TABLET DAILY 90 Tab 3 ??? ergocalciferol, vitamin D2, (VITAMIN D ORAL) Take by mouth. ??? fluticasone propionate (FLONASE) 50 mcg/actuation nasal spray Instill 100 mcg into both nostrilsas needed. ??? lisdexamfetamine (VYVANSE) 40 mg capsule Take 1 capsule by mouth every morning for 28 days. Daily Max: 40 mg 28 capsule 0 ??? LORazepam (ATIVAN) 0.5 mg tablet Take 1 Tablet by mouth at bedtime as needed for Anxiety or Sleep. Daily Max: 0.5 mg 05/08/2021: Rarely 1-2x yr 10 Tablet 0 ??? melatonin 10 mg tablet Take by mouth at bedtime. ??? traZODone (DESYREL) 100 mg tablet Take 1.5 Tablets by mouth at bedtime. 45 Tablet 1 ??? UNABLE TO FIND as needed. Med Name: [facility] Review of Systems Constitutional: Negative. Musculoskeletal: Positive for joint pain (at times - knee pain). - See HPI Objective: BP 100/66 (BP Cuff Location: Left arm, BP Patient Position: Sitting, BP Cuff Sizes: Adult, regular) Pulse 60 Temp 36.2 ??C (97.2 ??F) (Tympanic) Resp 12 Wt 64.6 kg (142 lb 6.4 oz) BMI 22.62 kg/m?? Physical Exam Constitutional: General: She is not in acute distress. Appearance: She is well-developed and well-nourished. She is not diaphoretic. Cardiovascular: Rate and Rhythm: Normal rate and regular rhythm. Pulmonary: Effort: Pulmonary effort is normal. Breath sounds: Normal breath sounds. No wheezing, rhonchi or rales. Neurological: Mental Status: She is alert and oriented to person, place, and time. Psychiatric: Mood and Affect: Mood and affect normal. Behavior: Behavior normal. Thought Content: Thought content normal. Judgment: Judgment normal. Assessment / Plan: Primary? Depression, unspecified depression type ??? Attention deficit hyperactivity disorder (ADHD), unspecified ADHD type Yes Depression - stable Taking wellbutrin XL 300mg daily Prn lorazepam 0.5mg - rare prn Trazodone 100-150mg at bedtime prn ADHD vyvanse 40mg daily Following with PSYCHIATRIC Filomena Ochoa PA-C 05/08/2021 11:02 documented in this encounter Plan of Treatment Upcoming Encounters Date Type Specialty Care Team Description 12/16/2021 Appointment Infusion Therapy 04/15/2022 Office Visit Hematology and Oncology Poppy Felton PA-C [address] [place] [address] [phone] (Wo rk) 05/30/2022 Office Visit Surgical Oncology Asa Cameron MD [address] [place] [address] [phone] (Wo rk) documented as of this encounter Visit Diagnoses Diagnosis Attention deficit hyperactivity disorder (ADHD), unspecified ADHD type - Primary Depression, unspecified depression type documented in this encounter Discontinued Medications Medication Sig Discontinue Reason Start Date End Date buPROPion (WELLBUTRIN XL) TAKE 1 TABLET Reorder 06/15/2020 0 05/08/2021 300 mg XL DAILY tabletIndications: Depression, unspecified depression type lisdexamfetamine (VYVANSE) Take 1 capsule by Reorder 2 05/08/2021 40 mg capsule mouth every morning for 28 days. Daily Max: 40 mg traZODone (DESYREL) 100 mg Take 1.5 Tablets Reorder 04/24/2021 05/08/2021 tablet by mouth at bedtime. ondansetron (ZOFRAN-ODT) 4 Take 1 Tab by Patient Stopped 02/10/2020 05/12/2021 mg disintegrating mouth every 8 Taking tabletIndications: hours as needed Recurrent cancer of right for Nausea. breast (HCC-[facility]) (HCC) documented as of this encounter Historical Medications This list may reflect changes made after this encounter. Medication Sig Dispensed Refills Start Date End Date ergocalciferol, vitamin D2, Take by mouth. 0 (VITAMIN D ORAL) added in this encounter Care Teams Shearer Operator Relationship Specialty Start Date End Date Filomena Ochoa PA-C PCP - General 03/02/18 2 [place] [phone] documented as of this encounter
--- OUTSIDE RECORDS SUMMARY | 2021-11-29 00:24 | XMS_ITS | Encounter Summary ---
:1970 Author Organization [facility] Address [address] [place] [address] Care Team Providers Name Role Phone Filomena Ochoa PA-C Primary Care Provider Reason for Visit Reason Onset Date Comments Medication Management 07/31/2020 Encounter Details Date Type Department Care Team Description 07/31/2020 Telephone [facility] Adult Nova Ochoa Medication Management Primary Care - Hallie Wolf PA-C [address] [place] [address] [place], [place] [phone] Social History Tobacco Use Types Packs/Day [...] Status Functional Status Response Date of Assessment Because of a physical, mental, or emotional condition, No 03/26/2016 does this person have difficulty doing errands alone such as visiting a doctor's office or shopping? Cognitive Status Response Date of Assessment Because of a physical, mental, or emotional condition, No 03/26/2016 does this person have serious difficulty concentrating, remembering, or making decisions? documented as of this encounter Miscellaneous Notes Telephone Encounter - Kenzie Osborne - 08/01/2020 1423 EDT Left message for patient to call and schedule appointment with gastro. Once that is done, they will sent new script elephone Encounter - Filomena Ochoa PA-C - 08/01/2020 1222 EDT This was very clearly conveyed to providers that GI was the one to prescribe and change prep due to this being a GI procedure. Please call GI so they can correct this. Telephone Encounter - Kenzie Osborne - 08/01/2020 1207 EDT Gastro sent them back to us because script was written out of this office.. They can switch it verbally to what they have which is PEG 3350 powder lemon flavored 4000ml [phone] to call back verbally Ref [id number] elephone Encounter - Filomena Ochoa PA-C - 07/31/2020 1526 EDT This is supposed to be directed to GI. They are supposed to sign any changes to prep. Telephone Encounter - Cristiane Bautista - 07/31/2020 1443 EDT Rec'd fax from [facility] regarding the Rx that was done for Golytely for this pt's colonoscopy. [facility] states that the medication is on back order. It says that PEG-3350 POW HARINI, 4000 (PEG 420GM, [id number] (NaCI/NaHCO3/KCL/peg) gen Nulytely is available. They are asking for a new Rx. documented in this encounter Plan of Treatment Upcoming Encounters Date Type Specialty Care Team Description 12/16/2021 Appointment Infusion Therapy 04/15/2022 Office Visit Hematology and Oncology Poppy Felton PA-C 111 [facility] 2 [place], [place] [phone] (Wo rk) 05/30/2022 Office Visit Surgical Oncology Asa Cameron MD [address] [phone] (Wo rk) documented as of this encounter Visit Diagnoses Not on filedocumented in this encounter Care Teams Director Of Strategic Sales Relationship Specialty Start Date End Date Filomena Ochoa PA-C PCP - General 03/02/18 2 [place] [phone] documented as of this encounter
--- OUTSIDE RECORDS SUMMARY | 2021-11-29 00:24 | XMS_ITS | Encounter Summary ---
:1970 Author Organization [facility] Address [address] [place] [address] Care Team Providers Name Role Phone Filomena Ochoa PA-C Primary Care Provider [phone] Reason for Visit Reason Onset Date Comments Medications Refill 06/28/2020 Encounter Details Date Type Department Care Team Description 06/28/2020 Refill [facility] Adult Nova Ochoa, Medications Refill Primary Care - Hallie GUDINO [address] [place] [address] [place], [place] [phone] (Wo rk) Social History Tobacco Use [...] making decisions? documented as of this encounter Ordered Prescriptions Prescription Sig Dispensed Refills Start Date End Date lisdexamfetamine (VYVANSE) Take 1 Cap by 84 Cap 0 202008/25/2020 40 mg capsule mouth every morning for 84 days. Daily Max: 40 mg documented in this encounter Miscellaneous Notes Telephone Encounter - Filomena Ochoa PA-C - 06/28/2020 1132 EDT eprescribe elephone Encounter - Filomena Coker RN - 06/28/2020 1021 EDT From: Jia Dow To: Office of Filomena Ochoa PA-C Sent: 06/28/2020 0:17 EDT Subject: Medication Renewal Request Refills have been requested for the following medications: lisdexamfetamine (VYVANSE) 40 mg capsule [Filomena Ochoa PA-C] Patient Comment: Please note: I picked this up at a pharmacy last month, so they could only fill a one month supply (even though written for 3 months). A thr ee month supply needs to go through the mail order pharmacy ([facility]). As it takes several days for them to process, it would be great if this prescription could be sent at this time, for the 3 month supply. Thanks very much. Jia Preferred pharmacy: [facility] [place], [place] - [address] [place] [address] COURT documented in this encounter Plan of Treatment Upcoming Encounters Date Type Specialty Care Team Description 12/16/2021 Appointment Infusion Therapy 04/15/2022 Office Visit Hematology and Oncology Poppy Felton PA-C 111 [facility] 2 [place], [place] [phone] (Wo rk) 05/30/2022 Office Visit Surgical Oncology Asa Cameron MD 111 [facility] 2 [place], [place] [phone] (Wo rk) documented as of this encounter Visit Diagnoses Not on filedocumented in this encounter Discontinued Medications Medication Sig Discontinue Reason Start Date End Date lisdexamfetamine (VYVANSE) Take 1 Cap by Reorder 06/06/2020 06/28/2020 40 mg capsule mouth every morning for 84 days. Daily Max: 40 mg documented as of this encounter Care Teams Head Of Strategy Relationship Specialty Start Date End Date Filomena Ochoa PA-C PCP - General 03/02/18 2 [place] [phone] documented as of this encounter
--- OUTSIDE RECORDS SUMMARY | 2021-11-29 00:24 | XMS_ITS | Encounter Summary ---
:1970 Author Organization [facility] Address [address] [place] [address] Care Team Providers Name Role Phone Filomena Ochoa PA-C Primary Care Provider [phone] Reason for Visit Reason Onset Date Comments Appointment Related 09/21/2020 Encounter Details Date Type Department Care Team Description 09/21/2020 Telephone [facility] Cancer Center Poppy Felton, Mary ointment Related Hematology & Oncology PA-Nori - [address] [address] [address], [place] [phone] (Wo rk) Social History Tobacco [...] been in contact with No / Unsure 09/10/2020 13:39 EDT someone who was confirmed or suspected [...] this encounter Miscellaneous Notes Telephone Encounter - Cuba Mueller MA - 09/21/2020 1134 EDT Called Patient regarding telemedicine visit on 09/24/2020. Left a voicemail and will call back later CUBA MUELLER MA 09/21/2020 11:34 documented in this encounter Plan of Treatment Upcoming Encounters Date Type Specialty Care Team Description 12/16/2021 Appointment Infusion Therapy 04/15/2022 Office Visit Hematology and Oncology Poppy Felton PA-C [address] [phone] (Wo rk) 05/30/2022 Office Visit Surgical Oncology Asa Cameron MD [address] [phone] (Wo rk) documented as of this encounter Visit Diagnoses Not on filedocumented in this encounter Care Teams Jig And Fixture Builder Apprentice Relationship Specialty Start Date End Date Filomena Ochoa PA-C PCP - General 03/02/[address] [place] [phone] documented as of this encounter
--- OUTSIDE RECORDS SUMMARY | 2021-11-29 00:24 | XMS_ITS | Encounter Summary ---
:1970 Author Organization [facility] Address [address] [place] [address] Care Team Providers Name Role Phone Filomena Ochoa PA-C Primary Care Provider [phone] Encounter Details Date Type Department Care Team Description 09/14/2020 Orders Only [facility] Jessi Pleitez MD PhD Hematology & Oncology - [address] [place] [address] [address] [place], [place] [id number] [place] [phone] (Wo rk) Social History Tobacco Use Types [...] Hematology and Oncology Poppy Felton PA-C 111 [facility] 2 [place], [place] [phone] (Wo rk) 05/30/2022 Office Visit Surgical Oncology Asa Cameron MD [address] [phone] (Wo rk) documented as of this encounter Visit Diagnoses Not on filedocumented in this encounter Care Teams Housekeeping Supervisor Hotel Relationship Specialty Start Date End Date Filomena Ochoa PA-C PCP - General 03/02/[address] [place] [phone] documented as of this encounter
--- OUTSIDE RECORDS SUMMARY | 2021-11-29 00:24 | XMS_ITS | Encounter Summary ---
:1970 Author Organization [facility] Address [address] [place] [id number] Care Team Providers Name Role Phone Filomena Ochoa PA-C Primary Care Provider [phone] Reason for Visit Reason Onset Date Comments Appointment Related 10/25/2020 Encounter Details Date Type Department Care Team Description 10/25/[address] [facility] Asa Cameron MD Appointment Related Surgical Oncology - [address] [place] [address], [address] [place], [place] [address] [place] [address] [phone] (Wo rk) Social History Tobacco Use [...] this encounter Miscellaneous Notes Telephone Encounter - Yuliana Nieves - 10/25/2020 1419 EDT Patient calling back; rescheduled appt to 10/26/2020 @ 11:[address] Cameron. Patient is aware. Yuliana Nieves 10/25/2020 14:19 elephone Encounter - Yuliana Feng - 10/25/2020 1327 EDT Reschedule from wait list; rescheduled appt to 10/26/2020 @ 15:[address] Cameron. Patient is aware.Yuliana Nieves 10/25/2020 13:28 documented in this encounter Plan of Treatment Upcoming Encounters Date Type Specialty Care Team Description 12/16/2021 Appointment Infusion Therapy 04/15/2022 Office Visit Hematology and Oncology Poppy Felton PA-C [address] [facility] 2 [place], [place] [phone] (Wo rk) 05/30/2022 Office Visit Surgical Oncology Asa Cameron MD 111 [facility], Level [address] [place], [place] [phone] (Wo rk) documented as of this encounter Visit Diagnoses Not on filedocumented in this encounter Care Teams First Beater Relationship Specialty Start Date End Date Filomena Ochoa PA-C PCP - General 03/02/18 [address] [place] [phone] documented as of this encounter
--- OUTSIDE RECORDS SUMMARY | 2021-11-29 00:24 | XMS_ITS | Encounter Summary ---
:1970 Author Organization [facility] Address [address] [place] [address] Care Team Providers Name Role Phone Filomena Ochoa PA-C Primary Care Provider Encounter Details Date Type Department Care Team Description 07/24/2020 Phlebotomy Only [facility] Blood Doctor, Recurr ent cancer of Hematology & Oncology [facility] Hem Onc [facility] (Primary 111 [facility] Dx) [place] [address] Social History Tobacco Use Types [...] making decisions? documented as of this encounter Progress Notes Tonny Richardson MA - 07/24/2020 1530 EDT Venipuncture performed for Dittus Per orders of Dittus Number of attempts 1 RT AC I was supervised by Miller who was present and immediately available in the office suite. TONNY RICHARDSON MA 07/24/2020 15:57 documented in this encounter Plan of Treatment Upcoming Encounters Date Type Specialty Care Team Description 12/16/2021 Appointment Infusion Therapy 04/15/2022 Office Visit Hematology and Oncology Poppy Felton, PAChuyC [address] [phone] (Wo rk) 05/30/2022 Office Visit Surgical Oncology Asa Cameron MD [address] [phone] (Wo rk) documented as of this encounter Procedures Procedure Name Priority Date/Time Associated Diagnosis Comme nts HEPATIC FUNCTION Routine 07/24/2020 15:54 Recurrent cancer of Results for this PANEL (ALB,ALK EDT right breast procedure are in PHOS,ALT,AST,DBIL,T (HCC-CMS) the resu lts OT YOLANDA,TOT PROT) section. documented in this encounter Results (ABNORMAL) HEPATIC FUNCTION PANEL (ALB,ALK PHOS,ALT,AST,DBIL,TOT YOLANDA,TOT PROT) (07/24/2020 15:54 EDT) Pathologist Sig nature Total Protein 7.2 6.3 - 8.2 g/dL [facility] Albumin 4.6 3.4 - 4.9 g/dL [facility] Bilirubin, Total <0.5 <1.4 mg/dL [facility] Conjugated Bilirubin 0.0 0.0 - 0.3 mg/dL [facility] Unconjugated Bilirubin 0.6 0.0 - 1.1 mg/dL [facility] Alkaline Phosphatase 64 38 - 126 U/L [facility] ALT 36 (H) <35 U/L [facility] AST 35 15 - 46 U/L [facility] Specimen Blood - Venous blood (substance) Performing Organization Address City/State/ZIP Code Phon e Number [facility] [address] [place] [address] SERVICES documented in this encounter Visit Diagnoses Diagnosis Recurrent cancer of right breast (HCC-CM S) (HCC) - Primary documented in this encounter Care Teams Dining Room Host Relationship Specialty Start Date End Date Filomena Ochoa PA-C PCP - General 03/02/18 [address] [place] [phone] documented as of this encounter
--- OUTSIDE RECORDS SUMMARY | 2021-11-29 00:24 | XMS_ITS | Encounter Summary ---
:1970 Author Organization [facility] Address [address] [place] [address] Care Team Providers Name Role Phone Filomena Ochoa PA-C Primary Care Provider [phone] Reason for Referral Consult (Routine) - Closed Specialty Diagnoses / Procedures Referred By Contact Refer red To Contact Cardiology Diagnoses NSTEMI (non-ST elevated myocardial infarction) (HCC-CMS) ([facility]) Elevated troponin Skipped heart beats [facility] [address] [address] [place] [address] [place] [address] Phone: Fax: Referral ID Status Reason Start Date Expiration Date Visits V isits Requested Authorized [id number] Closed Specialty 08/25/2020 1 1 Services Required Question Answer Reason for Request: After holter- for skipped be ats with intermittent palpitations ardiology (Routine/Next Available) - Authorization Not Required Specialty Diagnoses / Procedures Referred By Contact Refer red To Contact Diagnoses Skipped heart beats Bassam Cort[facility] Cardiology Procedures HOLTER MONITOR - [address] [place] [address] Referral ID Status Reason Start Expiration Visits Visits Date Date Requested Authorized [id number] Authorization Not 08/25/2020 1 1 Required ollow Up (Routine) - New Request Specialty Diagnoses / Procedures Referred By Contact Refer red To Contact Diagnoses NSTEMI (non-ST elevated myocardial infarction) (HCC-CMS) ([facility]) Elevated troponin Skipped heart beats Filomena Ochoa PA-C [address] [place] [phone] Referral ID Status Reason Start Expiration Visits Visits Date Date Requested Authorized [id number] New Request Continuity of 08/25/2020 1 1 Care Question Answer Reason for Request: hospital f/u Reason for Visit Auth/Cert Specialty Diagnoses / Procedures Referred By Contact Refer red To Contact Diagnoses Skipped heart beats Abnormal EKG Referral ID Status Reason Start Date Expiration Date Visits Requ ested Visits Authorized [id number] 1 1 Encounter Details Date Type Department Care Team Description 08/25/2020 Hospital Encounter [facility] Jeancarlos Hahn MD [address] [phone] Elevated troponin (Primary Dx); Cardiac Unit Bob Andrews MD [address] [phone] NSTEMI (non-ST elevated myocardial infar ction) ([facility]-CMS); [address] [place] [address] Skipped heart beats [place], [place] [id number] Social History Tobacco Use Types Packs/Day Years [...] month, have you been in contact with Unable to a ssess 08/24/2020 22:26 EDT someone who was confirmed or suspected to have Coronavirus / COVID-19? documented as of this encounter Last Filed Vital Signs Vital Sign Reading Time Taken Comments Blood Pressure 114/74 08/25/2020 1646 EDT Pulse - - Temperature 37.5 ??C (99.5 ??F) 08/25/2020 1646 EDT Respiratory Rate 16 08/25/2020 1646 EDT Oxygen Saturation 99% 08/25/2020 1646 EDT Inhaled Oxygen Concentration - - Weight 63.8 kg (140 lb 10.5 oz) 08/25/2020 1200 EDT Height 167.6 cm (5' 6) 08/25/2020 1200 EDT Body Mass Index 22.7 08/25/2020 1200 EDT documented in this encounter Functional Status [...] or older) documented as of this encounter Discharge Summaries Lupis Santillan MD - 08/25/2020 1750 EDT Cardiology Discharge Summary Primary Care Provider: Filomena Ochoa Attending Physician: Bob Andrews,* Admit Date: 08/25/2020 Discharge Date: 08/25/20 Disposition: Home or self care Problems and Procedures Admitting Diagnosis: Elevated troponin Final Hospital Diagnosis: Elevated Troponin and Palpitation with skipped beats Additional Problems Managed in the Hospital Active Hospital Problems Diagnosis Date Noted ??? *Elevated troponin 08/25/2020 Resolved Hospital Problems No resolved problems to display. Principal Procedure: ECHO Date: 08/25/20 Normal study Hospital Course Ms. Botello is a pleasant and athletic 50 y.o. female with PMH significant for breast cancer s/p B/L Mastectomies, malignant breast cyst (Feb 2019) on Faslodex therapy since January 2020 who was referred from [facility] for evaluation of adynamic troponin elevation, intermittent palpitation and skipped beat. She reported that the episodes of intermitted palpitations with episodes of skipped beat associated with nausea started after her Faslodex therapy 3 days ago. Documentation at [facility] included ECG with sinus rhythm and some ST depressions with t wave inversions in anterior leads with some PVCs. Lab results at [facility] were significant for troponin elevation- 0.11; 0.10; 0.09 (most recent). She had no episodes of skipped beat or palpitations since she was admitted at [facility]. Her ECG showed ectopic atrial bradycardia with RSr' pattern in lead V2 with possible LVH and non-specific ST & T wave abnormality. Her TTE studies were normal. Telemetry evaluation showed sinus rhythm with HR in 60's-70's. The likely etiology of her skipped beats is premature atrial or premature ventricular complexes. Thetroponin elevation appears to be adynamic secondary to unknown causes rather than myocardial infarction. We further ordered TSH, Lyme test, and Holter monitoring with follow-up outpatient to evaluatethe cause of her skipped beat with palpitations. Allergies and Immunizations No Known Allergies Immunization History Administered Date(s) Administered ??? Influenza Vaccine Quad (AFLURIA) PF 0.5 ml IM (3 yrs+) 02/11/2016 ??? Td 02/23/2005 ? ? Tdap Vaccine =>7YO IM 09/25/2017 Transition of Care Plans Condition at Discharge Excellent Assessment at Discharge Vital signs: Patient Vitals for the past 12 hrs: BP Heart Rate Resp Temp SpO2 O2 Device 08/25/20 1646 114/74 80 BPM 16 37.5 ??C (99.5 ??F) 99 % ??? 08/25/20 1130 113/76 65 BPM 16 36.8 ??C (98.2 ??F) 98 % None Is the patient being discharged with a diagnosis of Systolic Heart Failure? No Coumadin Management N/A Non-Cardiac Studies at Time of Discharge none Results Pending at Discharge Test results still pending from this admission Procedure Component Value Units Date/Time Lyme Antibody [[id number]] Collected: 08/25/20 1623 Lab Status: In process Specimen: Blood, Venous Updated: 08/25/20 1630 Last Lab Results at Discharge BUN: Lab Results Component Value Date BUN 21 08/25/2020 Creatinine: Lab Results Component Value Date CREATININE 0.96 08/25/2020 CBC: Lab Results Component Value Date WBC 6.02 08/25/2020 RBC 4.20 08/25/2020 HGB 13.0 08/25/2020 HCT 37.8 08/25/2020 MCV 90 08/25/2020 MCH 31.0 08/25/2020 MCHC 34.4 08/25/2020 PLT 204 08/25/2020 DIFFTYPE Auto 06/26/2020 Electrolytes: Lab Results Component Value Date NA 140 08/25/2020 K 4.3 08/25/2020 CL 104 08/25/2020 CO2 28 08/25/2020 INR: Lab Results Component Value Date INR 1.0 08/25/2020 INR 1.0 12/11/2015 PROTIME 11.5 08/25/2020 PROTIME 11.9 12/11/2015 No results found for: HGBA1C Discharge Follow Up Upcoming Appointments Sep 10, 2020 13:30 Colonoscopy Request with Matthew Cho MD [facility] Endoscopy - [facility] ([facility] All Departments) [address] [facility] [id number] Sep 18, 2020 9:30 LAB VISIT with BLOOD DOCTOR, [facility] HEM ONC [facility] Hematology & Oncology - [facility] ([facility] Cancer Center) [address] [facility] [id number] Sep 18, 2020 10:00 Follow Up Visit with Poppy Felton PA-C [facility] Hematology & Oncology [facility] ([facility]) [address] [facility] [id number] Sep 18, 2020 11:00 Injection with SHORT STAY CHAIR 1, HEM/ONC INF [facility] Hematology & Oncology [facility] ([facility]) [address] [facility] [id number] Oct 08, 2020 15:15 (Arrive by 15:05) Follow Up Visit with Asa Cameron MD [facility] Surgical Oncology [facility] ([facility]) [address] [facility] [address] Oct 16, 2020 13:30 LAB VISIT with BLOOD DOCTOR, [facility] HEM ONC [facility] Hematology & Oncology [facility] ([facility]) [address] [facility] [address] Oct 16, 2020 14:00 Injection with SHORT STAY CHAIR 1, HEM/ONC INF [facility] Hematology & Oncology [facility] ([facility]) [address] [facility] [address] Follow-up appointments and procedures Amb Consult/Follow Up Cardiology Reason for Request: After holter- for skipped beats with intermittent palpitations Authorizing Provider: Lupis Santillan MD Amb Consult/Follow Up Primary Care Physician Reason for Request: hospital f/u Authorizing Provider: Lupis Santillan MD Follow-up labs and tests HOLTER MONITOR - 24 HOUR Complete by: Aug 26, 2020 (Approximate) Authorizing Provider: Lupis Santillan MD Appointments We Recommend but have not been Scheduled N/A LUPIS SANTILLAN MD 08/25/2020 17:57 Associated attestation - Bob Andrews MD - 08/26/2020 0922 EDT I evaluated the patient (on 08/25/2020) and agree with the discharge summary as outlined by Dr. Santillan. Ms. Botello's echocardiogram was completely normal. Left ventricular size, wall thickness, systolic function, diastolic function, and strain imaging were all normal. Right ventricular size and function were also normal. The mild troponin elevation was not secondary to a myocardial infarction. There was also no echocardiographic evidence of myocarditis or a stress cardiomyopathy. The skipped beats were secondary to premature ectopic complexes. Bob Andrews MD Attending Tandem Operator [facility] documented in this encounter Medications at Time of Discharge Medication Sig Dispensed Refills Start Date End Date fluticasone propionate Instill 100 mcg into 0 (FLONASE) 50 both nostrils as mcg/actuation nasal spray needed. melatonin 10 mg tablet Take by mouth at 0 bedtime. UNABLE TO FIND as needed. Med Name: 0 [facility] buPROPion (WELLBUTRIN XL) TAKE 1 TABLET DAILY 90 Tab 3 0 06/15/2020 05/08/2021 300 mg XL tabletIndications: Depression, unspecified depression type lisdexamfetamine Take 1 Cap by mouth 28 Cap 0 07/04/2020 08/29/2020 (VYVANSE) 40 mg capsule every morning for 28 days. Daily Max: 40 mg ondansetron (ZOFRAN-ODT) Take 1 Tab by mouth 10 Tab 0 05/12/2021 4 mg disintegrating every 8 hours as tabletIndications: needed for Nausea. Recurrent cancer of right breast (HCC-CMS) (HCC) polyethylene glycol Instructions mailed 4000 mL 0 021 09/10/2020 (GOLYTELY;NULYTELY) once procedure 236-22.74-6.74 -5.86 gram scheduled. suspension Questions: [facility] Gastroenterology: [phone] or GI Doctor's Office. traZODone (DESYREL) 100 Take 1 Tab by mouth 90 Tab 3 02/22/2021 mg tablet at bedtime. documented as of this encounter Discharge Disposition Disposition Code Departure Means Destination Home or Self Retirement documented in this encounter H&P Notes Lupis Santillan MD - 08/25/2020 1155 EDT Cardiology Admitting H&P Inpatient Admit Date: 08/25/20 Initial Observation Date (if different): 08/25/2020 Date of Service: 08/25/2020 PCP: Filomena Ochoa Code Status: Full Code Chief Complaint: Intermittent Palpitation with single skipped beat with NSTEMI evaluation for mild troponin increase. HPI: Ms. Botello is a pleasant and athletic 50 y.o. female with PMH significant for breast cancer s/p B/L Mastectomies ( 2011). She was diagnosed with a malignant breast cyst in Feb 2019. She was started on Faslodex therapy in January 2020 (Initial dosage- twice/ month decreased to once per month). Her last injection was 3 days back by [facility] Oncology. She reports episodes of intermitted palpitations with single episode of skipped beat with associated Nausea. She also reports that the skipped beat was evident on her electronic watch. She reports that her HR and BP usually runs low. She went to ED at [facility] where significant findings documented include- 1. EKG at [facility]- ?? Sinus rhythm but having some ST depressions and t wave inversions in anterior leads concerning for ischemic changes. Some PVCs noted. 2. Troponin elevation- 08/24/20 (From 2100 to 2300)- 0.11; 0.10; 0.09 (most recent) She reports episode of skipped beat at [facility] and ambulance. She had no episodes since she was admitted at [facility]. She reports some episodes of skipped beat 4 years ago in [place] where her doctor recommended her Holter monitoring but the skipped beats stopped, so she never got the Holter. She denies any episode ofchest pain, dizziness, edema, bowel/ bladder discomfort. PMH PSH Past Medical History: Diagnosis Date ??? Breast cancer ([facility]) 07/2011 ??? Environmental allergies ??? Seborrheic dermatitis 12/20/2019 [facility] Past Surgical History: Procedure Laterality Date ??? BREAST RECONSTRUCTION ??? HAND TENDON SURGERY ??? MASTECTOMY Social History Family History Social History Tobacco Use ??? Smoking status: Never Smoker ??? Smokeless tobacco: Never Used Substance Use Topics ??? Alcohol use: Yes Alcohol/week: 2.0 standard drinks Types: 2 Standard drinks or equivalent per week Family History Problem Relation Age of Onset ??? Cancer Brother thyroid ??? Cancer Maternal Grandmother breast, postmenopausal ??? Pacemaker Mother ??? Thyroid Disease Mother ??? Arrhythmia Father Afib Medications Medications Prior to Admission Medication Sig Dispense Refill Last Dose ??? buPROPion (WELLBUTRIN XL) 300 mg XL tablet TAKE 1 TABLET DAILY 90 Tab 3 ??? fluticasone propionate (FLONASE) 50 mcg/actuation nasal spray Instill 100 mcg into both nostrilsas needed. ??? lisdexamfetamine (VYVANSE) 40 mg capsule Take 1 Cap by mouth every morning for 28 days. Daily Max: 40 mg 28 Cap 0 ??? lisdexamfetamine (VYVANSE) 40 mg capsule Take 1 Cap by mouth every morning for 84 days. Daily Max: 40 mg 84 Cap 0 ??? melatonin 10 mg tablet Take by mouth at bedtime. ??? ondansetron (ZOFRAN-ODT) 4 mg disintegrating tablet Take 1 Tab by mouth every 8 hours as needed for Nausea. (Patient not taking: Reported on 04/02/2020) 10 Tab 0 ??? polyethylene glycol (GOLYTELY;NULYTELY) 236-22.74-6.74 -5.86 gram suspension Instructions mailedonce procedure scheduled. Questions: [facility] Gastroenterology: [phone] or GI Doctor's Office. 4000 mL 0 ??? polyethylene glycol (GOLYTELY;NULYTELY) 236-22.74-6.74 -5.86 gram suspension Instructions mailedonce procedure scheduled. Questions: [facility] Gastroenterology: [phone] or GI Doctor's Office. 4000 mL 0 ??? traZODone (DESYREL) 100 mg tablet Take 1 Tab by mouth at bedtime. 90 Tab 3 ??? UNABLE TO FIND as needed. Med Name: [place] Allergies No Known Allergies Review of Systems: Pertinent items are noted in Subjective/HPI Objective/Physical Exam: VS: Patient Vitals for the past 8 hrs: BP Heart Rate Temp SpO2 08/25/20 1130 113/76 65 BPM 36.8 ??C (98.2 ??F) 98 % Pain: No data found. Weight: Weight : 63.8 kg (140 lb 10.5 oz) Body mass index is 22.7 kg/m??. Glucose Readings (last 8 hours): No results for input(s): GLUCOSEFINGE in the last 72 hours. Exam: General appearance: alert, cooperative, no distress Skin: Skin color, temperature, turgor normal. No rashes or lesions Lungs: clear to auscultation bilaterally Heart: regular rate and rhythm, S1, S2 normal, no murmur, click, rub or gallop Abdomen: soft, non-tender; bowel sounds normal; no masses, no organomegaly Mental Status: awake and alert; oriented to person, place, and time Extremities: extremities warm, atraumatic, no cyanosis or edema positive pulses bilat Pulses: 2+ and symmetric Pressure Ulcer Present on admission? No Data Review: Labs: I have personally reviewed NA CBC: Lab Results Component Value Date WBC 6.39 06/26/2020 RBC 4.45 06/26/2020 HGB 14.1 06/26/2020 HCT 40.5 06/26/2020 MCV 91 06/26/2020 MCH 31.7 06/26/2020 MCHC 34.8 06/26/2020 PLT 217 06/26/2020 NEUTROABS 4.00 06/26/2020 BMP: Lab Results Component Value Date NA 142 08/21/2020 K 3.9 08/21/2020 CL 105 08/21/2020 CO2 27 08/21/2020 BUN 24 08/21/2020 CREATININE 0.90 08/21/2020 CALCIUM 10.0 08/21/2020 MG 2.1 08/21/2020 LABALBU 4.4 08/21/2020 Coagulation: Lab Results Component Value Date PROTIME 11.9 12/11/2015 PTT 28 12/11/2015 Other Studies: N/A eGFR calculation: eGFR Date Value Ref Range Status 08/21/2020 76 >60 mL/min/1.73m2 Final Comment: eGFR calculated using CKD-EPI equation for non- Americans. Multiply eGFR by 1.16 for AfricanAmerican patients. Assessment: Ms. Botello is pleasant 50 y.o. F with complaint of episodes of skipped beats with intermittent palpitations who was admitted for evaluation of NSTEMI. NSTEMI: Asymptomatic. Type 2. Positive biomarkers without ST-elevations or ST- depression / non-specific changes. Likely secondary to Faslodex therapy or skipped beats. - Monitor on class I telemetry - Supplemental O2 if needed Labs/imaging: - Echo ordered - EKG ordered Skipped beat with intermittent palpitations: - telemetry monitoring - NSR VTE Prophylaxis: Unchanged plan Discharge Plan: Home or self care Admission status Observation admission due to anticipated duration of hospitalization is less than two midnights. Patient warrants hospitalization because Episodes of skipped beat LUPIS SANTILLAN MD 08/25/2020 12:41 Associated attestation - Bob Andrews MD - 08/25/2020 1412 EDT I have evaluated the patient. I agree with the assessment and plan as outlined by Dr. Santillan. I have reviewed all of 's clinical data. She is undoubtedly having premature atrial or premature ventricular complexes as the etiology of her skipped beats. I very much doubt that she has had a myocardial infarction but rather has a troponin elevation for unknown reasons. The troponin elevation appears to be adynamic. We are going to do an echocardiogram to evaluate for a regional wall motion abnormality, cardiomyopathy, and stress-induced cardiomyopathy. BOB ANDREWS MD Attending Tandem Operator [facility] documented in this encounter Miscellaneous Notes Plan of Care - Pari Wells RN - 08/25/2020 1712 EDT D: Pt admitted today from [facility] for palpitations at home following monthly chemo infusion and EKG changed upon ED arrival. Denies CP, SOB, nausea, and all other pain, very few episodes of palpitations while here. NSR on tele, VSS, A/Ox3 and independent; anxious about hospital admissionand needing to stay when nothing was being done. A: Pt received echo, labs collected, EKG. notified of pts desire to go home rather than stay awaiting results. Education provided. Pt disconnected from tele, IV removed, discharge teaching provided. R: Pt discharged to home via , plan for holter monitor follow up. Denies further questions atthis time. Problem: Daily Care Plan Goals Goal: Care Plan Documentation Outcome: Completed documented in this encounter Plan of Treatment Upcoming Encounters Date Type Specialty Care Team Description 12/16/2021 Appointment Infusion Therapy 04/15/2022 Office Visit Hematology and Oncology Poppy Felton PA-C 111 [facility], [facility], [facility] [address] [place], [place] [address] (Wo rk) 05/30/2022 Office Visit Surgical Oncology Asa Cameron MD [address] [facility], [facility], [facility] [address] [place], [place] [phone] (Wo rk) Scheduled Referrals Name Type Priority Associated Order Schedule Diagnoses AMB CONS/FOLLOW UP Outpatient Referral Routine NSTEMI (non-ST Expected: PRIMARY CARE elevated myocardial 09/02/19 21 PHYSICIAN infarction) (Approximate) ([facility]) Elevated troponi n Skipped heart beats AMB CONS/FOLLOW UP Outpatient Referral Routine NSTEMI (non-ST Expected: CARDIOLOGY elevated myocardial 09/02/19 infarction) (Approximate) ([facility]) Elevated troponi n Skipped heart beats documented as of this encounter Procedures Procedure Name Priority Date/Time Associated Comments Diagnosis ECG REPORT - SCANNED 08/30/2020 12:14 EDT ECG REPORT - SCANNED 08/30/2020 12:14 EDT TROPONIN I Routine 08/25/2020 16:27 NSTEMI (non-ST Results f or this EDT elevated myocardial procedur e are in infarction) the results ([facility]) section. LYME AB Routine 08/25/2020 16:23 Results for this EDT procedure are i n the results section. PROTIME Routine 08/25/2020 16:23 Results for this EDT procedure are i n the results section. COMPLETE BLOOD COUNT Routine 08/25/2020 16:23 Res ults for this EDT procedure are i n the results section. TSH Routine 08/25/2020 16:23 Results for this EDT procedure are i n the results section. NT PRO BNP Routine 08/25/2020 16:23 Results for this EDT procedure are i n the results section. BASIC METABOLIC PANEL Routine 08/25/2020 16:23 Re sults for this (BMP) EDT procedure are i n the results section. TRANSTHORACIC ECHO Routine 08/25/2020 15:35 Resul ts for this (TTE) COMPLETE EDT procedure are in the results section. ECG REPORT - SCANNED 08/25/2020 14:13 EDT EKG 12-LEAD Routine 08/25/2020 12:41 Results for this EDT procedure are i n the results section. documented in this encounter Results TROPONIN I (08/25/2020 16:27 EDT) [facility] Troponin I (ng/mL) <0.034 <0.034 ng/mL [facility] LABORATORY SERVICES Specimen Blood - Venous blood (substance) Narrative [facility] - 08/25/2020 16:59 EDT The results of this assay can be falsely lowered due to the consumption of Biotin. Performing Organization Address City/[facility]/ZIP Code Phon e Number [facility]ORY [address] [place] [address] SERVICES LYME AB (08/25/2020 16:23 EDT) Pathologist [facility] Lyme Ab NegativeComment: New Negative [facility] 3rd generation assay LABORATORY SERVICES in use 08/03/2019 Specimen Blood - Venous blood (substance) Performing Organization Address City/[facility]/ZIP Code Phon e Number [facility] [address] [place] [address] SERVICES NT PRO BNP (08/25/2020 16:23 EDT) [facility] NT-pro BNP 59Comment: The results <125 pg/mL [facility] of this assay can be LABORATORY SERVICES falsely lowered due to consumption of Biotin. Specimen Blood - Venous blood (substance) Performing Organization Address City/State/ZIP Code Phon e Number [facility]ORY [address] [place] [address] SERVICES TSH (08/25/2020 16:23 EDT) [facility] TSH 1.55 0.47 - 4.68 uIU/mL [facility]OR[facility]ORY SERVICES Specimen Blood - Venous blood (substance) [facility] LABORATORY SERVICES - 08/25/2020 17:31 EDT The results of this assay can be falsely lowered due to the consumption of Biotin. Performing Organization Address City/[facility]/ZIP Code Phon e Number [facility]ORY [address] [place] [address] SERVICES PROTIME (08/25/2020 16:23 EDT) Pathologist Sig nature I.N.R. 1.0 0.9 - 1.1 Ratio [facility] LABORA TORY SERVICES Pro Time 11.5 10.4 - 12.6 secs [facility] LABOR ATORY SERVICES Specimen Blood - Venous blood (substance) Narrative [facility]ORY SERVICES - 08/25/2020 16:53 EDT Moderate Intensity Coumadin INR = 2.0-3.0 Adjustments in anticoagulant therapy dos e should be based on the INR and NOT on the Protime. Performing Organization Address [facility] e Number [facility] LABORATORY [address] [phone] SERVICES BASIC METABOLIC PANEL (BMP) (08/25/2020 16:23 EDT) Sodium 140 136 - 145 [facility] [facility] mEq/L LABORATORY SERVICES Potassium 4.3 3.5 - 5.0 [facility] mEq/L LABORATORY SERVICES Chloride 104 96 - 110 [facility] mEq/L LABORATORY SERVICES CO2 Total 28 22 - 32 mEq/L [facility] LABORATORY SERVICES Glucose 99 70 - 100 [facility] mg/dL LABORATORY SERVICES Calcium 10.1 8.5 - 10.5 [facility] mg/dL LABORATORY SERVICES Calculated Calcium 10.2 8.5 - 10.5 [facility] mg/dL LABORATORY SERVICES BUN 21 10 - 26 mg/dL [facility] LABORATORY SERVICES Creatinine 0.96 0.52 - 1.04 [facility] mg/dL LABORATORY SERVICES eGFR 70Comment: eGFR >60 [facility] calculated using mL/min/1.73m2 LABORATORY CKD-EPI equation SERVICES for non- Americans. Multiply eGFR by 1.16 for patients. Specimen Blood - Venous blood (substance) Performing Organization Address [facility] Phon e Number [facility] LABORATORY [address] [place] [phone] SERVICES (ABNORMAL) COMPLETE BLOOD COUNT (08/25/2020 16:23 EDT) Pathologist Sig nature WBC 6.02 4.00 - 12.40 K/cmm [facility] LABORATORY SERVICES RBC 4.20 3.86 - 5.04 M/cmm [facility] LABORATORY SERVICES Hemoglobin 13.0 11.6 - 15.2 gm/dL [facility] LABORATORY SERVICES HCT 37.8 34.9 - 44.4 % [facility] LABORATORY SERVICES MCV 90 81 - 98 fl [facility] LABORATORY SERVICES MCH 31.0 26.7 - 33.3 pg [facility] LABORATORY SERVICES MCHC 34.4 32.1 - 35.9 gm/dL [facility] LABORATORY SERVICES RDW-CV 12.6 <14.7 % [facility] LABORATORY SERVICES RDW-SD 41.5 <50.4 fl [facility] LABORATORY SERVICES PLT 204 141 - 377 K/cmm [facility] LABORATORY SERVICES MPV 8.8 (L) 9.5 - 12.7 fl [facility] LABORATORY SERVICES Specimen Blood - Venous blood (substance) Performing Organization Address City/State/ZIP Code Phon e Number [facility] LABORATORY [address] [place] [address] SERVICES TRANSTHORACIC ECHO (TTE) COMPLETE W/DOPPLER W/CF NO CONTRAST (08/25/2020 15:35 EDT) Pathologist Sig nature [place] Atrial Length A2C 4.9 cm [facility] [place] Atrial Area A4C 16.4 cm2 [facility] LA ID/bsa, A-P 1.7 cm/m2 [facility] LA ID, A-P, ES 3.0 cm [facility] LV PW thickness, ED, PLAX 1.0 0.6 - 1.1 cm [facility] Aortic root ID 3.1 cm [facility] LV ejection fraction, 1-p 60 % [facility] A4C LV e', lateral 0.14 m/s [facility] Mitral deceleration time 173 ms [facility] LVOT area 3.5 cm2 [facility] Mitral peak gradient, D 4 mmHg [facility] RE Mitral E-wave peak 1.0 m/s [facility] velocity Mitral A-wave peak 0.7 m/s [facility] velocity LV Systolic Volume Index 19.0 mL/m2 [facility] LV Diastolic Volume Index 51.0 mL/m2 [facility] LA Atrial Length A4C 4.9 cm [facility] LVOT ID, S 2.1 cm [facility] EF 63 % [facility] LA volume, ES, BP 44.0 ml [facility] LA volume/bsa, ES, A4C 24.0 ml/m2 [facility] LA volumes, ES, A4C 42.0 ml [facility] LA volume/bsa, ES, BP 26.0 ml/m2 [facility] LV Systolic Volume 33 mL [facility] LV Diastolic Volume 88 mL [facility] Interventricular Septum to 1 [facility] Posterior Wall Thickness Ratio IVS thickness, ED, PLAX 1.0 cm [facility] LV e', medial 0.11 m/s [facility] LV e', average 0.13 m/s [facility] LA Atrial Area A2C 16.4 cm2 [facility] LA/aortic root ratio 0.97 [facility] LV ID, ED, PLAX 4.1 3.5 - 6.0 cm [facility] LV ID, ES, PLAX 2.7 2.1 - 4.0 cm [facility] LV end diastolic volume 82 ml [facility] RE 1-p A2C LV ejection fraction, 1-p 65 % [facility] A2C LV E/e', lateral 7.0 [facility] LV E/e', medial 7.0 [facility] LV E/e', average 7 [facility] LV end-diastolic volume, 84 ml [facility] 1-p A4C Specimen Narrative [facility] - 08/25/2020 16:37 E DT ?Normal study - see below for details. Performing Organization Address City/State/ZIP Code Phon e Number [facility] EKG 12-LEAD (08/25/2020 12:41 EDT) Specimen Narrative [facility] EKG - 08/25/2020 14:0 8 EDT ? [facility] ? Test Date: ?2020-08-25 Pat Name: ? JIA ROSMERY ?Department: ?? [place] [address] ? Room: ? YT0385 Gender: ? Female ? Data Steward: ?? [id number] : ?1970 ? Requested By: DEBO SOSA Order Number: [id number] ? Reading MD: ?? BOB ANDREWS MD ? Measurements Intervals ?[place] ? Rate: ? 56 ? P: ?-33 DC: ? 155 ?QRS: ?57 QRSD: ? 102 ?T: ?3 QT: ? 426 ? QTc: ?413 ? Interpretive Statements ECTOPIC ATRIAL BRADYCARDIA RSr' PATTERN IN LEAD V2 POSSIBLE LEFT VENTRICULAR HYPERTROPHY NONSPECIFIC ST & T-WAVE ABNORMALITY No previous ECG available for comparison I reviewed the tracing and have either a greed or edited the findings in this report. Electronically Signed On 14:08:06 EDT by BOB ANDREWS MD. Procedure Note Bob Andrews MD - 08/25/2020 [facility] Test Date: 2020-08-25 Pat Name: JIA BOTELLO Department: [place] [address] Room: [facility] Gender: Female Data Steward: [id number] : 1970 Requested By: DEBO MCCLELLAN Order Number: [id number] Reading MD: Destini ANDREWS MD Measurements Intervals [place] Rate: 56 P: -33 DC: 155 QRS: 57 QRSD: 102 T: 3 QT: 426 QTc: 413 Interpretive Statements ECTOPIC ATRIAL BRADYCARDIA RSr' PATTERN IN LEAD V2 POSSIBLE LEFT VENTRICULAR HYPERTROPHY NONSPECIFIC ST & T-WAVE ABNORMALITY No previous ECG available for comparison I reviewed the tracing and have either a greed or edited the findings in this report. Electronically Signed On 14:08:06 EDT by BOB ANDREWS MD. Performing Organization Address City/State/ZIP Code Phon e Number [facility] EKG documented in this encounter Visit Diagnoses Diagnosis Elevated troponin - Primary Other abnormal blood chemistry NSTEMI (non-ST elevated myocardial infar ction) ([facility]) ([facility]) Acute myocardial infarction, subendocard ial infarction, episode of care unspecified Skipped heart beats Cardiac dysrhythmia, unspecified documented in this encounter Admitting Diagnoses Diagnosis Skipped heart beats Cardiac dysrhythmia, unspecified documented in this encounter Administered Medications Inactive Administered Medications - up to 3 most recent administrations Medication Order MAR Action Action Date Dose Rate Site acetaminophen (TYLENOL) tablet 325 mg 325 mg, oral, EVERY 4 HOURS PRN, Startin g on 08/25/20 at 1209, Until 08/25/20 at 2002, Pain, Routine melatonin tablet 3 mg 3 mg, oral, AT BEDTIME PRN, Starting on 08/25/20 at 1209, Until 08/25/20 at 2002, insomnia, Routine polyethylene glycol 3350 (MIRALAX) packe t 17 g 17 g, oral, DAILY PRN, Starting on Sat at 1209, Until 08/25/20 at 2002, Constipation, Routine senna (SENOKOT) tablet 1 Tablet 1 Tablet, oral, DAILY PRN, Starting on 08/25/20 at 1 209, Until 08/25/20 at 2002, Constipation, Routine documented in this encounter Discontinued Medications Medication Sig Discontinue Reason Start Date End Date lisdexamfetamine Take 1 Cap by mouth Duplicate order 07/04/2020 0 08/25/2020 (VYVANSE) 40 mg capsule every morning for 84 days. Daily Max: 40 mg polyethylene glycol Instructions mailed 07/27/2020 0 08/25/2020 (GOLYTELY;NULYTELY) once procedure [id number] scheduled. gram suspension Questions: [facility] Gastroenterology: [phone] or GI Doctor's Office. documented as of this encounter Active and Recently Administered Medications Times are shown in EDT. Scheduled Medication Order 08/23/2020 08/24/2020 08/25/2020 buPROPion (WELLBUTRIN XL) XL tablet 300 mg 1351 (Not Given - Provider: Pari Wells RN - Reason: Other - Comment: given at OSH) 300 mg, oral, DAILY, First dose on Sat at 1345, Until Discontinued, Routine melatonin tablet 10 mg 10 mg, oral, AT BEDTIME, First dose on 08/25/20 at 2100, Until Discontinued traZODone (DESYREL) tablet 100 mg 100 mg, oral, AT BEDTIME, First dose on 08/25/20 at 2100, Until Discontinued, Routine PRN Medication Order 08/23/2020 08/24/2020 08/25/2020 acetaminophen (TYLENOL) tablet 325 mg 325 mg, oral, EVERY 4 HOURS PRN, Startin g on 08/25/20 at 1209, Until 08/25/20 at 2002, Pain, Routine melatonin tablet 3 mg 3 mg, oral, AT BEDTIME PRN, Starting on 08/25/20 at 1209, Until 08/25/20 at 2002, insomnia, Routine ondansetron (ZOFRAN-ODT) disintegrating tablet 4 mg 4 mg, oral, EVERY 8 HOURS PRN, Starting on 08/25/20 at 1322, Until 08/25/20 at 2002, Nausea, Routine polyethylene glycol 3350 (MIRALAX) packet 17 g 17 g, oral, DAILY PRN, Starting on Sat at 1209, Until 08/25/20 at 2002, Constipation, Routine senna (SENOKOT) tablet 1 Tablet 1 Tablet, oral, DAILY PRN, Starting on S at 08/25/20 at 1209, Until 08/25/20 at 2002, Constipation, Routine documented in this encounter Orders Medications Ordered That Might Not Have Count Last Ord ered Date First Ordered Date Been Administered acetaminophen (TYLENOL) tablet 325 mg 1 08/25/2020 buPROPion (WELLBUTRIN XL) XL tablet 300 mg 1 08/25 lisdexamfetamine (VYVANSE) capsule capsule 1 08/25 40 mg melatonin tablet 10 mg 1 08/25/2020 melatonin tablet 3 mg 1 08/25/2020 ondansetron (ZOFRAN-ODT) disintegrating 1 08/26/19 21 tablet 4 mg polyethylene glycol 3350 (MIRALAX) packet 1 2020 17 g senna (SENOKOT) tablet 1 Tablet 1 08/25/2020 traZODone (DESYREL) tablet 100 mg 1 08/25/2020 Procedures Count Last Ordered Date First Ordered Date ECG REPORT - SCANNED 3 08/30/2020 08/25/2020 Nursing Count Last Ordered Date First Ordered Date PATIENT AT LOW RISK FOR VTE: RISK OF 1 08/25/2020 PHARMACOLOGIC PROPHYLAXIS OUTWEIG Cardiac Services Count Last Ordered Date First Ordered Date HOLTER MONITOR - 24 1 08/25/2020 Admission Count Last Ordered Date First Ordered Date INITIATE OBSERVATION STATUS 1 08/25/2020 Discharge Count Last Ordered Date First Ordered Date DISCHARGE PATIENT 1 08/25/2020 documented in this encounter Care Teams Economic Research Analyst Relationship Specialty Start Date End Date Filomena Ochoa PA-C PCP - General 03/02/18 2 [place] [phone] documented as of this encounter
--- OUTSIDE RECORDS SUMMARY | 2021-11-29 00:24 | XMS_ITS | Encounter Summary ---
:1970 Author Organization [facility] Address [address] [place] [address] Care Team Providers Name Role Phone Filomena Ochoa PA-C Primary Care Provider [phone] Encounter Details Date Type Department Care Team Description 08/24/2020 Travel Social History Tobacco Use Types Packs/Day [...] making decisions? documented as of this encounter Plan of Treatment Upcoming Encounters Date Type Specialty Care Team Description 12/16/2021 Appointment Infusion Therapy 04/15/2022 Office Visit Hematology and Oncology Poppy Felton PA-C [address] [phone] (Wo rk) 05/30/2022 Office Visit Surgical Oncology Asa Cameron MD [address] [phone] (Wo rk) documented as of this encounter Visit Diagnoses Not on filedocumented in this encounter Care Teams Call Specialist Relationship Specialty Start Date End Date Filomena Ochoa PA-C PCP - General 03/02/18 2 [place] [phone] documented as of this encounter
--- OUTSIDE RECORDS SUMMARY | 2021-11-29 00:24 | XMS_ITS | Encounter Summary ---
:1970 Author Organization [facility] Address [address] [place] [address] Care Team Providers Name Role Phone Filomena Ochoa PA-C Primary Care Provider [phone] Encounter Details Date Type Department Care Team Description 09/24/[address] [facility] Cancer Center Hematology [place], [place], & Oncology - Main Ca mpus RN [address] [place] [address] Social History Tobacco Use Types [...] Office Visit Hematology and Oncology Poppy Felton PAChuyC [address] [phone] (Wo rk) 05/30/2022 Office Visit Surgical Oncology Asa Cameron MD [address] [phone] (Wo rk) documented as of this encounter Visit Diagnoses Not on filedocumented in this encounter Care Teams Division Superintendent Relationship Specialty Start Date End Date Filomena Ochoa PA-C PCP - General 03/02/18 [address] [place] [phone] documented as of this encounter
--- OUTSIDE RECORDS SUMMARY | 2021-11-29 00:24 | XMS_ITS | Encounter Summary ---
:1970 Author Organization [facility] Address [address] [place] [address] Care Team Providers Name Role Phone Filomena Ochoa PA-C Primary Care Provider [phone] Reason for Visit Reason Comments Injections Prior Authorization (Routine/Next Available) - Closed Specialty Diagnoses / Procedures Referred By Contact Refer red To Contact Hematology and Diagnoses Malignant neoplasm of female breast, unspecified estrogen receptor status, unspecified laterality, unspecified site of breast ([facility]) (HCC) Jessi Pleitez MD PhD Ep2 Hem/Onc Oncology [address] [place] [id number] [place] [address], Level [address] [place], [place] Fax: [phone] Referral ID Status Reason Start Date Expiration Date Visits Requ ested Visits Authorized [id number] Closed Other 02/06/2020 09/11/2021 15 15 Encounter Details Date Type Department Care Team Description 06/26/2020 Hospital Encounter [facility] Cancer Center Recu rrent cancer of Hematology & Oncology right breast ([facility]) - [facility] (Primary Dx) [address] [place] [address] Social History Tobacco Use Types Packs/Day Years [...] Sign Reading Time Taken Comments Blood Pressure 105/59 06/26/2020 1134 EDT Pulse 59 06/26/2020 1134 EDT Temperature 36 ??C (96.8 ??F) 06/26/2020 1134 EDT Respiratory Rate 16 06/26/2020 1134 EDT Oxygen Saturation 100% 06/26/2020 1134 EDT Inhaled Oxygen Concentration - - Weight 63.7 kg (140 lb 8 oz) 06/26/2020 1134 EDT Height 169 cm (5' 6.54) 06/26/2020 1134 EDT Body Mass Index 22.31 06/26/2020 1134 EDT documented in this encounter Functional Status [...] making decisions? documented as of this encounter Medications at [...] unspecified depression type lisdexamfetamine (VYVANSE) Take 1 Cap by 84 Cap 0 202006/28/2020 40 mg capsule mouth every morning for 84 days. Daily Max: 40 mg ondansetron (ZOFRAN-ODT) 4 Take 1 Tab [...] Care documented in this encounter Progress Notes Annalise Michael RN - 06/26/2020 1130 EDT Pt presents for faslodex. Per Dr Pleitez OK to treat with lab results pending. Fasolodex in two syringes administered IM to left and right gluteus without incident. Well tolerated. Sites intact. Band aids applied. Pt per her preference lay flat on abdomen in reclining chair for injections. Discharged to [facility] for infusion. Stable. No new or immediate concerns expressed. I was supervised by Wilman who was present and immediately available in the office suite. ANNALISE MIHCAEL RN 06/26/2020 12:09 documented in this encounter Miscellaneous Notes Addendum Note - Juan Joyce - 06/26/2020 1130 EDT Encounter addended by: Juan Joyce on: 07/25/2020 8:55 Actions taken: Charge Capture section accepted documented in this encounter Plan of Treatment Upcoming Encounters Date Type Specialty Care Team Description 12/16/2021 Appointment Infusion Therapy 04/15/2022 Office Visit Hematology and Oncology Poppy Felton, PAChuyC [address] [facility] 2 [place], [place] [phone] (Wo rk) 05/30/2022 Office Visit Surgical Oncology Asa Cameron MD [address] [place] [facility] 2 [place], [place] [phone] (Wo rk) documented as of this encounter Visit Diagnoses Diagnosis Recurrent cancer of right breast ([facility]CC-[facility] S) (HCC) - Primary documented in this encounter Administered Medications Inactive Administered Medications - up to 3 most recent administrations Medication Order MAR Action Action Date Dose Rate Site fulvestrant (FASLODEX) injection 500 Given 06/26/2020 11:57 EDT 500 mg mg 500 mg, intramuscular, NOW X1, 1 dose, On Thu06/26/20 at 1215, Routine documented in this encounter Orders Medications Ordered That Might Not Have Count Last Ord ered Date First Ordered Date Been Administered fulvestrant (FASLODEX) injection 500 mg 1 06/27/19 21 Appointment Requests Count Last Ordered Date First Ord ered Date ONCBCN INFUSION APPOINTMENT REQUEST - 1 06/26/2020 CALCULATED documented in this encounter Care Teams Preforming Machine Operator Relationship Specialty Start Date End Date Filomena Ochoa PA-C PCP - General 03/02/18 [address] [place] [phone] documented as of this encounter
--- OUTSIDE RECORDS SUMMARY | 2021-11-29 00:24 | XMS_ITS | Encounter Summary ---
:1970 Author Organization [facility] Address [address] [place] [address] Care Team Providers Name Role Phone Filomena Ochoa PA-C Primary Care Provider Encounter Details Date Type Department Care Team Description 09/10/2020 Travel Social History Tobacco Use Types Packs/Day [...] Hematology and Oncology Poppy Felton PA-C [address] [phone] (Wo rk) 05/30/2022 Office Visit Surgical Oncology Asa Cameron MD [address] [phone] (Wo rk) documented as of this encounter Visit Diagnoses Not on filedocumented in this encounter Care Teams Delivery Coordinator Relationship Specialty Start Date End Date Filomena Ochoa PA-C PCP - General 03/02/18 2 [place] [phone] documented as of this encounter
--- OUTSIDE RECORDS SUMMARY | 2021-11-29 00:24 | XMS_ITS | Encounter Summary ---
:1970 Author Organization [facility] Address [address] [place] [address] Care Team Providers Name Role Phone Filomena Ochoa PA-C Primary Care Provider [phone] Reason for Visit Reason Comments Injections Prior Authorization (Routine/Next Available) - Closed Specialty Diagnoses / Procedures Referred By Contact Refer red To Contact Hematology and Diagnoses Malignant neoplasm of female breast, unspecified estrogen receptor status, unspecified laterality, unspecified site of breast ([facility]) (HCC) Jessi Pleitez MD PhD Ep2 Hem/Onc Oncology [address] [place] [id number] [place] [address], [address] [place], [place] Fax: [phone] Referral ID Status Reason Start Date Expiration Date Visits Requ ested Visits Authorized [id number] Closed Other 02/06/2020 09/11/2021 15 15 Encounter Details Date Type Department Care Team Description 10/25/2020 Hospital Encounter [facility] Cancer Center Recu rrent cancer of Hematology & Oncology right breast ([facility]) - [facility] (Primary Dx) [address] [place] [address] Social History Tobacco Use Types Packs/Day Years [...] Sign Reading Time Taken Comments Blood Pressure 105/68 10/25/2020 1149 EDT Pulse 72 10/25/2020 1149 EDT Temperature 36.7 ??C (98 ??F) 10/25/2020 1149 EDT Respiratory Rate 16 10/25/2020 1149 EDT Oxygen Saturation 100% 10/25/2020 1149 EDT Inhaled Oxygen Concentration - - Weight 64.2 kg (141 lb 8 oz) 10/25/2020 1149 EDT Height - - Body Mass Index 22.5 09/10/2020 1331 EDT documented in this encounter Functional Status [...] Take 1 capsule by 28 capsule 0 10/26/2020 30 mg capsule mouth every morning for 28 days. Daily Max: 30 mg LORazepam (ATIVAN) 0.5 mg Take 1 [...] Care documented in this encounter Progress Notes Eden Lane, RN - 10/25/2020 1200 EDT Patient presents to clinic today for cycle # 8 , day # 1 of Faslodex treatment plan. Faslodex 500 mg IM injection administered to bilat gluteal muscles outer/upper (250 mg X 2). Patientlayed on abdomen in chair as flat as possible and received both injections simultaneously (given by 2 RNs). No complications at sites, dressings applied. Pt d/c from clinic in stable condition. She will call if she develops heart palpitations or present to the ED if chest pain, SOB and palpitations occur. Patient tolerating treatment at this time with no signs of reaction or side effects. Patient education: Patient educated on all medications administered today. Patient expressed understanding of education provided and no barriers identified I was supervised by Dr. Mcwilliams who was present and immediately available in the office suite. EDEN LANE RN 10/25/2020 documented in this encounter Miscellaneous Notes Addendum Note - Yanna Astudillo - 10/25/2020 1200 EDT Encounter addended by: Yanna Astudillo on: 11/23/2020 15:44 Actions taken: Charge Capture section accepted documented in this encounter Plan of Treatment Upcoming Encounters Date Type Specialty Care Team Description 12/16/2021 Appointment Infusion Therapy 04/15/2022 Office Visit Hematology and Oncology Poppy Felton, PAChuyC [address] [phone] (Wo rk) 05/30/2022 Office Visit Surgical Oncology Asa Cameron MD [address] [phone] (Wo rk) documented as of this encounter Visit Diagnoses Diagnosis Recurrent cancer of right breast (HCC-CM S) (HCC) - Primary documented in this encounter Administered Medications Inactive Administered Medications - up to 3 most recent administrations Medication Order MAR Action Action Date Dose Rate Site fulvestrant (FASLODEX) injection 500 Given 10/25/2020 12:06 EDT 500 mg mg 500 mg, intramuscular, NOW X1, 1 dose, On Luz 10/25/20 at 1215, Routine documented in this encounter Orders Medications Ordered That Might Not Have Count Last Ord ered Date First Ordered Date Been Administered fulvestrant (FASLODEX) injection 500 mg 1 10/26/19 21 Appointment Requests Count Last Ordered Date First Ord ered Date ONCBCN INFUSION APPOINTMENT REQUEST - 1 10/25/2020 CALCULATED documented in this encounter Care Teams Art Gilder Relationship Specialty Start Date End Date Filomena Ochoa PA-C PCP - General 03/02/18 2 [place] [phone] documented as of this encounter
--- OUTSIDE RECORDS SUMMARY | 2021-11-29 00:24 | XMS_ITS | Encounter Summary ---
:1970 Author Organization [facility] Address [address] [place] [address] Care Team Providers Name Role Phone Filomena Ochoa PA-C Primary Care Provider [phone] Reason for Referral Prior Authorization (Urgent) - Closed Specialty Diagnoses / Procedures Referred By Contact Refer red To Contact Infusion Therapy Diagnoses Recurrent cancer of right breast ([facility]) (HCC) Jessi Pleitez MD PhD [facility] Adult Infusion Procedures NV IV INFUSION, THERAP/PROPH/DIAGNOST,INITIAL,1ST HOUR [place] ZOLEDRONIC ACID 1MG [address] 2 [place], [place] [address] [place] [address] Phone: [phone] Referral ID Status Reason Start Date Expiration Date Visits V isits Requested Authorized [id number] Closed Specialty 06/26/2020 06/26/2020 0 0 Services Required Question Answer Is this appt for transfusion, medication, test or inje ction? Infusion How many infusions need to be ordered for appt? 1 Infusion Name Other Please specify: zometa Infusion Dose 4mg What is the infusion frequency? every 6 months Is this the first dose of infusion(s)? Yes Are labs to be obtained during the appt? No Have orders been place for this appt? (i.e.: Blood Tra nsfusion Order No Set, Therapy Plan, Lab Orders, Supportive Plan, Etc) Comments Spoke with charge-scheduled 5/4 at 12:30 in chair 5. Reason for Visit Prior Authorization (Routine/Next Available) - Closed Specialty Diagnoses / Referred By Contact Referred To Contact Procedures Hematology and Diagnoses Recurrent cancer of right breast ([facility]) ([facility]) Jessi Pleitez MD PhD Ep2 Hem/Onc Oncology [address] [place] [address] [address], [address] 2 [place], [place] Fax: [phone] Referral ID Status Reason Start Date Expiration Date Visits Requ ested Visits Authorized [id number] Closed Other 06/26/2020 06/26/2021 2 2 Encounter Details Date Type Department Care Team Description 06/26/2020 Hospital Encounter [facility] Jessi Pleitez M D Recurrent cancer of Ambulatory Infusion PhD right breast Center [address] [place] [address] ([facility]) (Primary 111 [facility] D[facility]) [facility] [address] [address], [place] [address] Social History Tobacco Use Types Packs/Day Years [...] making decisions? documented as of this encounter Discharge Instructions Bonnie Warren RN - 06/26/2020 Zoledronate (Zoledronic Acid) Reclast 5 mg/Zometa 4 mg Zoledronate Discharge Instructions: You received a Zoledronic Acid infusion today 06/26/20 Signs and symptoms of an allergic reaction include: - Difficulty breathing, wheezing - Swelling of face, lips, tongue, or throat. - Chest tightness - Fever - Rash, Itching - Severe nausea or vomiting - Chest pain or pressure Please notify your health care provider or seek medical attention if you have any signs of an allergic reaction. Also report any new adverse symptoms to your physician immediately: - Occasionally patients experience a flu-like syndrome consisting of fever, chills, bone pain and muscle aches. This may last up to 72 hours. - GI reactions such as nausea and vomiting have been reported. - Local reactions at the infusion site, such as redness or swelling are observed infrequently. Applya warm moist compress intermittently if this occurs. - Continue your supplemental Calcium and Vitamin D unless your Provider advises otherwise. - Stay well hydrated with water. Increase hydration over the next 2-3 days after the infusion. - Notify your Provider prior to any dental surgery. - Regular dental exams are recommended. - Notify your Provider of any jaw or thigh pain. Health Care Provider: Jessi Pleitez Phone [phone]--lenaoard documented in this encounter Medications at Time of Discharge Medication Sig Dispensed Refills Start Date End Date fluticasone propionate Instill 100 mcg 0 (FLONASE) 50 mcg/actuation into both nostrils nasal spray as needed. melatonin 10 mg tablet Take by mouth at 0 bedtime. UNABLE TO FIND as needed. Med 0 Name: [facility] buPROPion (WELLBUTRIN XL) TAKE 1 TABLET [...] Code Departure Means Destination Home or Self Mcc documented in this encounter Progress Notes Bonnie Gibbs RN - 06/26/2020 1230 EDT Jia Dow here for first dose zometa infusion secondary to C50.911. Identification verified verbally and on patient wristband. 1237 Infusion started 1303 Infusion completed, pt tolerated well, will continue to monitor per protocol. 1330 Pt feeling well, PIV flushed with NS, removed, CSD applied documented in this encounter Plan of Treatment Upcoming Encounters Date Type Specialty Care Team Description 12/16/2021 Appointment Infusion Therapy 04/15/2022 Office Visit Hematology and Oncology Poppy Felton PA-C 111 [facility], [facility] 2 [place], [place] [address] (Larissa felder) 05/30/2022 Office Visit Surgical Oncology Asa Cameron MD 111 [facility], [facility] 2 [place], [place] [address] (Larissa felder) Scheduled Referrals Name Type Priority Associated Order Schedule Diagnoses AMB CONS/FOLLOW UP Outpatient Referral STAT Recurrent cance r of 1 Occurrences INFUSION right breast starting 2020 (HCC-CMS) until documented as of this encounter Visit Diagnoses Diagnosis Recurrent cancer of right breast (HCC-CM S) (HCC) - Primary documented in this encounter Administered Medications Inactive Administered Medications - up to 3 most recent administrations Medication Order MAR Action Action Date Dose Rate Site sodium chloride 0.9 % (NS) New Bag 06/26/2020 12:37 EDT 250 mL 100 mL/hr infusion at 100 mL/hr, 250 mL, intravenous, CONTINUOUS, Starting on Thu06/26/20 at 1230, Until Thu06/27/20 at 1236, Routine zoledronic acid (ZOMETA) IVPB 4 mg New Bag 06/26/2020 12:37 EDT 4 mg 4 mg, intravenous, Administer over 20 Minutes, NOW X1, 1 dose, On Thu06/26/20 at 1230, Routine documented in this encounter Orders Medications Ordered That Might Not Have Count Last Ord ered Date First Ordered Date Been Administered alteplase (CATHFLO ACTIVASE) injection 2 1 021 mg diphenhydrAMINE (BENADRYL) injection 50 mg 1 06/26 EPINEPHrine (ADRENALIN) injection 0.3 mg 1 021 heparin (PF) lock flush 500 Units 1 06/26/2020 methylPREDNISolone sod suc(PF) 1 06/26/2020 (SOLU-MEDROL) injection 100 mg sodium chloride 0.9 % (flush) flush 20 mL 1 2020 Nursing Count Last Ordered Date First Ordered Date INFORMED CONSENT 1 06/26/2020 NURSING COMMUNICATION 1 06/26/2020 Appointment Requests Count Last Ordered Date First Ord ered Date ONCBCN INFUSION APPOINTMENT REQUEST - 1 07/03/2020 CALCULATED documented in this encounter Care Teams Cargo Supervisor Relationship Specialty Start Date End Date Filomena Ochoa PA-C PCP - General 03/02/18 2 [place] [phone] documented as of this encounter
--- OUTSIDE RECORDS SUMMARY | 2021-11-29 00:24 | XMS_ITS | Encounter Summary ---
:[address] [facility] Address [address] [place] [address] Care Team Providers Name Role Phone Filomena Ochoa PA-C Primary Care Provider [phone] Encounter Details Date Type Department Care Team Description 08/21/2020 Orders Only [facility] Cancer Center [place], Recurrent cancer of Hematology & Oncology - LAMAR Anderson breast ([facility]) [place] (Primary Dx) [address] [place] [address] Social History Tobacco Use Types [...] documented as of this encounter Progress Notes Monica Lindsye, RN - 08/21/2020 0830 EDT Standing CMP ordered for Faslodex and future Zometas. documented in this encounter Plan of Treatment Upcoming Encounters Date Type Specialty Care Team Description 12/16/2021 Appointment Infusion Therapy 04/15/2022 Office Visit Hematology and Oncology Poppy Felton PA-C [address] [phone] (Wo rk) 05/30/2022 Office Visit Surgical Oncology Asa Cameron MD [address] [phone] (Wo rk) documented as of this encounter Visit Diagnoses Diagnosis Recurrent cancer of right breast (HCC-CM S) (HCC) - Primary documented in this encounter Care Teams Foaming Machine Operator Relationship Specialty Start Date End Date Filomena Ochoa PA-C PCP - General 03/02/18 2 [place] [address] documented as of this encounter
--- OUTSIDE RECORDS SUMMARY | 2021-11-29 00:24 | XMS_ITS | Encounter Summary ---
:1970 Author Organization [facility] Address [address] [place] [address] Care Team Providers Name Role Phone Filomena Ochoa PA-C Primary Care Provider [phone] Reason for Visit Reason Onset Date Comments Coordination Of Care 09/03/2020 Encounter Details Date Type Department Care Team Description 09/03/2020 Telephone [facility] Shantell Goodwin RN Extension Clerk rdination Of Care Cardiology - Amita Amita Villarreal [place], [place] [address] Social History Tobacco Use Types [...] this encounter Miscellaneous Notes Telephone Encounter - Shantell Goodwin RN - 09/03/2020 1454 EDT Patient called back and ended up follow up with [facility] Cardiology; she saw them today in fact so does not need an appointment with us. SHANTELL GOODWIN RN elephone Encounter - Shantell Goodwin RN - 09/03/2020 1008 EDT Patient had called and spoke to someone in scheduling in regards to having her follow up care here at [facility] instead of [facility] as she had requested previously. She is still waiting on getting her holter monitor placed at [facility]. Left message for her to call me back to discuss symptoms. SHANTELL GOODWIN RN documented in this encounter Plan of Treatment Upcoming Encounters Date Type Specialty Care Team Description 12/16/2021 Appointment Infusion Therapy 04/15/2022 Office Visit Hematology and Oncology Poppy Felton PA-C 111 [facility] 2 [place], [place] [phone] (Wo rk) 05/30/2022 Office Visit Surgical Oncology Asa Cameron MD [address] [facility], [facility], Level 2 [place], [place] [phone] (Wo rk) documented as of this encounter Visit Diagnoses Not on filedocumented in this encounter Care Teams Plug Assembler Relationship Specialty Start Date End Date Filomena Ochoa PA-C PCP - General 03/02/18 2 [place] [phone] documented as of this encounter
--- OUTSIDE RECORDS SUMMARY | 2021-11-29 00:24 | XMS_ITS | Encounter Summary ---
:[address] [facility] Address [address] [place] [address] Care Team Providers Name Role Phone Filomena Ochoa PA-C Primary Care Provider [phone] Encounter Details Date Type Department Care Team Description 10/25/2020 Orders Only [facility] Cancer Center Jessi Pleitez MD Recur [facility] cancer of Hematology & Oncology PhD right [facility] - [address] ([facility]) (Primary 111 [facility] Dx) [place], [place] [address] [place] [address] [place], [address] [place] [address] (Wo rk) Social History Tobacco [...] and Oncology Poppy Felton PA-C [address] [phone] (Wo rk) 05/30/2022 Office Visit Surgical Oncology Asa Cameron MD [address] [phone] (Wo rk) documented as of this encounter Visit Diagnoses Diagnosis Recurrent cancer of right breast (HCC-CM S) (HCC) - Primary documented in this encounter Orders Appointment Requests Count Last Ordered Date First Ord ered Date ONCBCN CLINIC APPOINTMENT REQUEST 3 03/20/2021 10/25/2020 ONCBCN INFUSION APPOINTMENT REQUEST - 3 03/20/2021 11/21/2020 CALCULATED documented in this encounter Care Teams Transportation Security Screener Relationship Specialty Start Date End Date Filomena Ochoa PA-C PCP - General 03/02/18 2 [place] [address] documented as of this encounter
--- OUTSIDE RECORDS SUMMARY | 2021-11-29 00:24 | XMS_ITS | Encounter Summary ---
:1970 Author Organization [facility] Address [address] [place] [address] Care Team Providers Name Role Phone Filomena Ochoa PA-C Primary Care Provider Encounter Details Date Type Department Care Team Description 08/17/2020 Orders Only [facility] Cancer Center Jessi Pleitez MD PhD Hematology & Oncology - [address] [place] [address] 2 [place], [place] [address] [place] [phone] (Wo rk) Social History Tobacco Use Types [...] Hematology and Oncology Poppy Felton PA-C 111 [facility], [facility] 2 [place], [place] [phone] (Wo rk) 05/30/2022 Office Visit Surgical Oncology Asa Cameron MD 111 [facility], [facility] 2 [place], [place] [phone] (Wo rk) documented as of this encounter Visit Diagnoses Not on filedocumented in this encounter Care Teams Signals Intelligence Analyst Relationship Specialty Start Date End Date Filomena Ochoa PA-C PCP - General 03/02/18 2 [place] [phone] documented as of this encounter
--- OUTSIDE RECORDS SUMMARY | 2021-11-29 00:24 | XMS_ITS | Encounter Summary ---
:1970 Author Organization [facility] Address [address] [place] [address] Care Team Providers Name Role Phone Filomena Ochoa PA-C Primary Care Provider [phone] Reason for Visit Reason Comments Follow-up Telemedicine Video Visit Encounter Details Date Type Department Care Team Description 09/25/2020 Telemedicine [facility] Cancer Center Poppy Felton Can celed (Patient: Hematology & PACl Cancelled via Oncology - [address]) [address] [place] [address] Pavilion, [place] [address] (Wo rk) Social History Tobacco [...] Hematology and Oncology Poppy Felton PA-C 111 [facility], [facility] 2 [place], [place] [phone] (Wo rk) 05/30/2022 Office Visit Surgical Oncology Asa Cameron MD 111 [facility] 2 [place], [place] [phone] (Wo rk) documented as of this encounter Visit Diagnoses Not on filedocumented in this encounter Care Teams Shrimp Peeling Machine Tender Relationship Specialty Start Date End Date Filomena Ochoa PA-C PCP - General 03/02/[address] [place] [phone] documented as of this encounter
--- OUTSIDE RECORDS SUMMARY | 2021-11-29 00:24 | XMS_ITS | Encounter Summary ---
:1970 Author Organization [facility] Address [address] [place] [address] Care Team Providers Name Role Phone Filomena Ochoa PA-C Primary Care Provider [phone] Reason for Visit Reason Onset Date Comments Results 09/03/2020 Holter Monitor Encounter Details Date Type Department Care Team Description 09/03/2020 Telephone [facility] Filomena Ochoa lts (Holter Adult Primary Care - SHAHAB Wolf Monitor) Hallie [address] [place] [phone] Social History Tobacco Use Types Packs/Day [...] this encounter Miscellaneous Notes Telephone Encounter - Marcus Ellis RN - 09/17/2020 1427 EDT Confirmed with pharmacy patient has additional refill elephone Encounter - Filomena Ochoa PA-C - 09/16/2020 1730 EDT Back to 40mg vyvanse eprescribed lorazepam #10 lorazepam with refill was called in on 08/29 Is pt out of this? Or had she not realized she had a refill at the pharmacy? Telephone Encounter - Filomena Ochoa PA-C - 09/11/2020 1020 EDT Medication adjustment was already made Checking to see how this med change has been working for pt S/p hospitalization at [facility] [employer] message sent. Telephone Encounter - Filomena Sequeira - 09/03/2020 1506 EDT Received Holter Monitor results from [facility]. Results scanned into pt's chart. documented in this encounter Plan of Treatment Upcoming Encounters Date Type Specialty Care Team Description 12/16/2021 Appointment Infusion Therapy 04/15/2022 Office Visit Hematology and Oncology Poppy Felton PA-C 111 [facility], [facility] 2 [place], [place] [phone] (Wo rk) 05/30/2022 Office Visit Surgical Oncology Asa Cameron MD 111 [facility], [address] [phone] (Wo rk) documented as of this encounter Visit Diagnoses Not on filedocumented in this encounter Care Teams Supervisor Putty And Caluking Relationship Specialty Start Date End Date Filomena Ochoa PA-C PCP - General 03/02/18 2 [place] [phone] documented as of this encounter
--- OUTSIDE RECORDS SUMMARY | 2021-11-29 00:24 | XMS_ITS | Encounter Summary ---
:1970 Author Organization [facility] Address [address] [place] [address] Care Team Providers Name Role Phone Filomena Ochoa PA-C Primary Care Provider [phone] Reason for Visit Reason Comments Telemedicine Video Visit Follow-up Encounter Details Date Type Department Care Team Description 09/24/2020 Telemedicine [facility] Cancer Center Poppy Felton Rec urrent cancer of Hematology & SHAHAB right breast Oncology - [address] ([facility]) [address] [place] [address] Pavilion, [place] [address] (Wo rk) Social History Tobacco [...] documented as of this encounter Progress Notes Poppy Felton PA-C - 09/24/2020 0920 EDT Signed on to Zoom at scheduled time, waited 15 mins, pt no show. Called her about 5 mins into Zoom visit time, LM on voice mail, asked her to call to reschedule if not available to Zoom now. documented in this encounter Plan of Treatment Upcoming Encounters Date Type Specialty Care Team Description 12/16/2021 Appointment Infusion Therapy 04/15/2022 Office Visit Hematology and Oncology Poppy Felton PA-C 111 [facility] venue [facility], [facility], [facility] 2 [place], [place] [phone] (Wo rk) 05/30/2022 Office Visit Surgical Oncology Asa Cameron MD 111 [facility] [address] [facility], [facility], Level 2 [place], [place] [phone] (Wo rk) documented as of this encounter Visit Diagnoses Diagnosis Recurrent cancer of right breast (HCC-CM S) (HCC) documented in this encounter Orders Appointment Requests Count Last Ordered Date First Ord ered Date ONCBCN CLINIC APPOINTMENT REQUEST 1 09/24/2020 documented in this encounter Care Teams Heading Saw Operator Relationship Specialty Start Date End Date Filomena Ochoa PA-C PCP - General 03/02/18 2 [place] [phone] documented as of this encounter
--- OUTSIDE RECORDS SUMMARY | 2021-11-29 00:24 | XMS_ITS | Encounter Summary ---
:1970 Author Organization [facility] Address [address] [place] [address] Care Team Providers Name Role Phone Filomena Ochoa PA-C Primary Care Provider [phone] Encounter Details Date Type Department Care Team Description 06/26/2020 Orders Only [facility] Cancer Center Jessi Pleitez MD PhD Hematology & Oncology - [address] [place] [address] 2 [place], [place] [address] [place] [phone] (Wo rk) Social History Tobacco Use Types [...] Oncology Poppy Felton PA-C 111 [facility], [facility] 2 [place], [place] [phone] (Wo rk) 05/30/2022 Office Visit Surgical Oncology Asa Cameron MD 111 [facility], [facility] 2 [place], [place] [phone] (Wo rk) documented as of this encounter Visit Diagnoses Not on filedocumented in this encounter Care Teams Singing Messenger Relationship Specialty Start Date End Date Filomena Ochoa PA-C PCP - General 03/02/18 2 [place] [phone] documented as of this encounter
--- OUTSIDE RECORDS SUMMARY | 2021-11-29 00:24 | XMS_ITS | Encounter Summary ---
:[address] [facility] Address [address] [place] [address] Care Team Providers Name Role Phone Filomena Ochoa PA-C Primary Care Provider [phone] Reason for Visit Reason Onset Date Comments Results 09/11/2020 Encounter Details Date Type Department Care Team Description 09/11/2020 Telephone [facility] Jae Cho MD Results Gastroenterology - Main 111 [facility], [address], Level [address] [place], [place] [address] [place] [address] [phone] (Wo rk) Social History Tobacco Use [...] this encounter Miscellaneous Notes Telephone Encounter - Matthew Cho MD - 09/11/2020 3606 EDT Patient called with results of colonoscopy. She should have a follow up colonoscopy in 3 years documented in this encounter Plan of Treatment Upcoming Encounters Date Type Specialty Care Team Description 12/16/2021 Appointment Infusion Therapy 04/15/2022 Office Visit Hematology and Oncology Poppy Felton, SHAHAB 111 [facility], [facility] 2 [place], [place] [phone] (Larissa felder) 05/30/2022 Office Visit Surgical Oncology Asa Cameron MD 111 [facility] 2 [place], [place] [phone] (Larissa felder) documented as of this encounter Visit Diagnoses Not on filedocumented in this encounter Care Teams Diesel Service Journeyman Relationship Specialty Start Date End Date Filomena Ochoa PA-C PCP - General 03/02/18 2 [place] [phone] documented as of this encounter
--- OUTSIDE RECORDS SUMMARY | 2021-11-29 00:24 | XMS_ITS | Encounter Summary ---
:1970 Author Organization [facility] Address [address] [place] [address] Care Team Providers Name Role Phone Filomena Ochoa PA-C Primary Care Provider [phone] Reason for Visit Reason Onset Date Comments Medications Refill 06/21/2020 Encounter Details Date Type Department Care Team Description 06/21/2020 Refill [facility] Nova Ochoa, Medications Refill Primary Care - Hallie GUDINO [address] [place] [address] [place] [address] [phone] (Wo rk) Social History Tobacco Use [...] End Date traZODone (DESYREL) 100 mg Take 1 Tab by mouth 90 Tab 3 06/21/2020 02/22/2021 tablet at bedtime. documented in this encounter Plan of Treatment Upcoming Encounters Date Type Specialty Care Team Description 12/16/2021 Appointment Infusion Therapy 04/15/2022 Office Visit Hematology and Oncology Poppy Felton PA-C [address] [phone] (Wo rk) 05/30/2022 Office Visit Surgical Oncology Asa Cameron MD [address] [phone] (Wo rk) documented as of this encounter Visit Diagnoses Not on filedocumented in this encounter Discontinued Medications Medication Sig Discontinue Reason Start Date End Date traZODone (DESYREL) 100 Take 1 Tab by mouth Reorder 03/07/2020 06/21/2020 mg tablet at bedtime. documented as of this encounter Care Teams Patient Care Secretary Relationship Specialty Start Date End Date Filomena Ochoa PA-C PCP - General 03/02/18 2 [place] [phone] documented as of this encounter
--- OUTSIDE RECORDS SUMMARY | 2021-11-29 00:24 | XMS_ITS | Encounter Summary ---
:1970 Author Organization [facility] Address [address] [place] [address] Care Team Providers Name Role Phone Filomena Ochoa PA-C Primary Care Provider [phone] Encounter Details Date Type Department Care Team Description 06/26/2020 Phlebotomy Only [facility] Jessi Pleitez MD PhD [address] [facility] [address] [place] [address] Recurrent cancer of Hematology & Blood Doctor, [facility] Hem Onc right breast Oncology - Main (HCC-CMS) ([facility] Dx) [address] [place] [address] Social History Tobacco Use Types [...] encounter Progress Notes Tonny Richardson MA - 06/26/2020 1100 EDT Venipuncture performed for Dittus Per orders of Dittus Number of attempts 1 RT AC I was supervised by Adecherelle who was present and immediately available in the office suite. TONNY RICHARDSON MA 06/26/2020 11:33 documented in this encounter Plan of Treatment Upcoming Encounters Date Type Specialty Care Team Description 12/16/2021 Appointment Infusion Therapy 04/15/2022 Office Visit Hematology and Oncology Poppy Felton, PAChuyC [address] [facility] [address] [place], [place] [address] (Wo rk) 05/30/2022 Office Visit Surgical Oncology Asa Cameron MD [address] [facility] 2 [place], [place] [address] (Wo rk) documented as of this encounter Procedures Procedure Name Priority Date/Time Associated Comments Diagnosis COMPREHENSIVE STAT 06/26/2020 11:30 Recurrent cancer of Res ults for this METABOLIC PANEL EDT right breast procedure ar e in (ONCOLOGY USE ONLY-INC ([facility]) the r esults MG) section. VITAMIN D (25,[place]) Routine 06/26/2020 11:30 Recurrent cancer of Results for this EDT right breast procedure are i n ([facility]) the results section. COMPLETE BLOOD COUNT STAT 06/26/2020 11:30 Recurrent cancer of Results for this AND DIFFERENTIAL EDT right breast procedure a re in ([facility]) the results section. documented in this encounter Results VITAMIN D (25,[place]) (06/26/2020 11:30 EDT) 25OH Vitamin D 53.3 30.0 - 100.0 [facility] Comment: ng/mL [facility] Vitamin D 25,OH Interpretive Ranges: SERV ICES Deficiency: ??<10.0 ng/mL Insufficiency: ??10.0 - 30.0 ng/mL Sufficiency: ??30.0 - 100.0 ng/mL Toxicity: ??>100.0 ng/mL Specimen Blood - Venous blood (substance) Performing Organization Address City/State/ZIP Code Phon e Number [facility] [address] [place] [address] SERVICES (ABNORMAL) COMPLETE BLOOD COUNT AND DIFFERENTIAL (06/26/2020 11:30 EDT) Pathologist Sig nature WBC 6.39 4.00 - 12.40 [facility] LABORATORY SERVICES RBC 4.45 3.86 - 5.04 [facility] LABORATORY SERVICES Hemoglobin 14.1 11.6 - 15.2 [facility] gm/dL LABORATORY SERVICES HCT 40.5 34.9 - 44.4 % [facility] SERVICES MCV 91 81 - 98 fl [facility] SERVICES MCH 31.7 26.7 - 33.3 pg [facility] SERVICES MCHC 34.8 32.1 - 35.9 [facility] gm/dL LABORATORY SERVICES RDW-CV 12.3 <14.7 % [facility] SERVICES RDW-SD 40.9 <50.4 fl [facility] SERVICES PLT 217 141 - 377 K/[facility] LABORATORY SERVICES MPV 8.6 (L) 9.5 - 12.7 fl [facility] SERVICES Neutrophils 62.6 % [facility] SERVICES Lymphocytes 28.3 % [facility] Monocytes 7.5 % [facility] SERVICES Eosinophils 0.8 % [facility] SERVICES Basophils 0.3 % [facility] Immature Grans 0.5 % [facility] SERVICES Absolute Neutrophils 4.00 2.20 - 8.85 [facility] LABORATORY SERVICES Absolute Lymphocytes 1.81 1.09 - 3.30 [facility] LABORATORY SERVICES Absolute Monocytes 0.48 0.10 - 0.80 [facility] LABORATORY SERVICES Absolute Eosinophils 0.05 0.03 - 0.61 [facility] LABORATORY SERVICES Absolute Basophils 0.02 0.01 - 0.11 [facility] LABORATORY SERVICES Absolute Immature 0.03 0.00 - 0.06 [facility] LABORATORY SERVICES Type of Differential: Auto [facility] SERVICES Specimen Blood - Venous blood (substance) Performing Organization Address City/State/ZIP Code Phon e Number [facility] [address] [place] [address] SERVICES (ABNORMAL) COMPREHENSIVE METABOLIC PANEL (ONCOLOGY USE ONLY-INC MG) (06/26/2020 11:30 EDT) Sodium 138 136 - 145 [facility] mEq/L [facility] Potassium 3.5 3.5 - 5.0 [facility] mEq/L [facility] Chloride 102 96 - 110 [facility] mEq/L [facility] CO2 Total 28 22 - 32 mEq/L [facility] SERVICES Glucose 102 (H) 70 - 100 [facility] mg/dL [facility] BUN 21 10 - 26 mg/dL [facility] SERVICES Creatinine 0.82 0.52 - 1.04 [facility] mg/dL [facility] eGFR 85Comment: eGFR >60 [facility] calculated using mL/min/1.73m2 [facility] CKD-EPI equation SERVICES for non- Americans. Multiply eGFR by 1.16 for patients. Total Protein 6.9 6.3 - 8.2 [facility] g/dL [facility] Albumin 4.1 3.4 - 4.9 [facility] g/dL [facility] Alkaline 59 38 - 126 U/L [facility] Phosphatase [facility] AST 30 15 - 46 U/L [facility] SERVICES ALT 20 <35 U/L [facility] SERVICES Bilirubin, Total <0.5 <1.4 mg/dL [facility] SERVICES Calcium 10.1 8.5 - 10.5 [facility] mg/dL [facility] Calculated Calcium 10.0 8.5 - 10.5 [facility] mg/dL [facility] Magnesium 2.1 1.7 - 2.8 [facility] mg/dL [facility] Specimen Blood - Venous blood (substance) Performing Organization Address City/State/ZIP Code Phon e Number [facility] [address] [place] [address] SERVICES documented in this encounter Visit Diagnoses Diagnosis Recurrent cancer of right breast (HCC-CM S) (HCC) - Primary documented in this encounter Care Teams Mens Locker Room Attendant Relationship Specialty Start Date End Date Filomena Ochoa PA-C PCP - General 03/02/18 [address] [place] [id number] documented as of this encounter
--- OUTSIDE RECORDS SUMMARY | 2021-11-29 00:24 | XMS_ITS | Encounter Summary ---
:1970 Author Organization [facility] Address [address] [place] [address] Care Team Providers Name Role Phone Filomena Ochoa PA-C Primary Care Provider [phone] Reason for Visit Prior Authorization (Routine/Next Available) - Closed Specialty Diagnoses / Procedures Referred By Contact Refer red To Contact Hematology and Diagnoses Malignant neoplasm of female breast, unspecified estrogen receptor status, unspecified laterality, unspecified site of breast ([facility]) (HCC) Jessi Pletiez MD PhD Ep2 Hem/Onc Oncology [address] [place] [address] [address] [place], [place] [id number] [place] [address], [address] [place], [place] Fax: [phone] Referral ID Status Reason Start Date Expiration Date Visits Requ ested Visits Authorized [id number] Closed Other 02/06/2020 09/11/2021 15 15 Encounter Details Date Type Department Care Team Description 07/24/2020 Hospital Encounter [facility] Recu rrent cancer of Hematology & Oncology right breast ([facility]) - [facility] (Primary Dx) [address] [place] [address] Social History Tobacco Use Types Packs/Day Years [...] type lisdexamfetamine (VYVANSE) Take 1 Cap by 28 Cap 0 202008/29/2020 40 mg capsule mouth every morning for 28 days. Daily Max: 40 mg lisdexamfetamine (VYVANSE) Take 1 Cap by 84 [...] encounter Progress Notes Annalise Michael RN - 07/24/2020 1600 EDT Pt presents for faslodex Cycle 6 day 1 OK to treat with lab results pending per treatment plan condition. Fasolodex in two syringes administered IM to left and right upper lateral gluteus without incident. Well tolerated. Sites intact. Band aids applied. Pt per her preference lay flat on abdomen in reclining chair for injections. Stable. No new or immediate concerns expressed. ? I was supervised by Dr Bhatt who was present and immediately available in the office suite. ANNALISE MICHAEL RN 07/24/2020 1601 documented in this encounter Miscellaneous Notes Addendum Note - Taylor Montilla - 07/24/2020 1600 EDT Encounter addended by: Taylor Montilla on: 08/24/2020 8:38 Actions taken: Charge Capture section accepted documented in this encounter Plan of Treatment Upcoming Encounters Date Type Specialty Care Team Description 12/16/2021 Appointment Infusion Therapy 04/15/2022 Office Visit Hematology and Oncology Poppy Felton PA-C [address] [facility] [address] [place], [place] [address] (Wo rk) 05/30/2022 Office Visit Surgical Oncology Asa Cameron MD [address] [facility] 2 [place], [place] [address] (Wo rk) documented as of this encounter Visit Diagnoses Diagnosis Recurrent cancer of right breast (HCC-CM S) (HCC) - Primary documented in this encounter Administered Medications Inactive Administered Medications - up to 3 most recent administrations Medication Order MAR Action Action Date Dose Rate Site fulvestrant (FASLODEX) injection 500 Given 07/24/2020 16:11 EDT 500 mg mg 500 mg, intramuscular, NOW X1, 1 dose, On Thu07/24/20 at 1615, Routine documented in this encounter Orders Medications Ordered That Might Not Have Count Last Ord ered Date First Ordered Date Been Administered fulvestrant (FASLODEX) injection 500 mg 1 07/25/19 21 Appointment Requests Count Last Ordered Date First Ord ered Date ONCBCN INFUSION APPOINTMENT REQUEST - 1 07/24/2020 CALCULATED documented in this encounter Care Teams Communications Professor Relationship Specialty Start Date End Date Filomena Ochoa PA-C PCP - General 03/02/18 [address] [place] [phone] documented as of this encounter
--- OUTSIDE RECORDS SUMMARY | 2021-11-29 00:24 | XMS_ITS | Encounter Summary ---
:1970 Author Organization [facility] Address [address] [place] [address] Care Team Providers Name Role Phone Filomena Ochoa PA-C Primary Care Provider [phone] Reason for Referral Referral (Routine) - Authorized Specialty Diagnoses / Referred By Contact Referred To Contact Procedures Gastroenterology and Diagnoses Family history of colorectal cancer Matthew Cho Mp5 Gi Hepatology Procedures COLONOSCOPY CO COLONOSCOPY FLX DX W/COLLJ SPEC WHEN KOREY ROA [address], [facility] Phone: [employer], [address] [place] [address] Referral ID Status Reason Start Date Expiration Date Visits V isits Requested Authorized [id number] Authorized 08/09/2020 02/22/2021 1 1 Reason for Visit Referral (Routine) - Authorized Specialty Diagnoses / Referred By Contact Referred To Contact Procedures Gastroenterology and Diagnoses Family history of colorectal cancer Matthew Cho Mp5 Gi Hepatology Procedures COLONOSCOPY CO COLONOSCOPY FLX DX W/COLLJ SPEC WHEN KOREY ROA 111 [facility] [address], [facility] Phone: [employer], [address] [place] [address] Referral ID Status Reason Start Date Expiration Date Visits V isits Requested Authorized [id number] Authorized 08/09/2020 02/22/2021 1 1 Encounter Details Date Type Department Care Team Description 09/10/2020 Hospital Encounter [facility] Matthew Cho Family history of Endoscopy - Augusto John MD colorectal cancer [address] [address] [address], [place] [address] Social History Tobacco Use Types [...] Sign Reading Time Taken Comments Blood Pressure 97/70 09/10/2020 1446 EDT Pulse - - Temperature 36.4 ??C (97.5 ??F) 09/10/2020 1426 EDT Respiratory Rate 20 09/10/2020 1446 EDT Oxygen Saturation 97% 09/10/2020 1446 EDT Inhaled Oxygen Concentration - - Weight 63.5 kg (140 lb) 09/10/2020 1331 EDT Height 168.9 cm (5' 6.5) 09/10/2020 1331 EDT Body Mass Index 22.26 09/10/2020 1331 EDT documented in this encounter [...] TO FIND as needed. [facility] bu[facility]ion (WELLBUTRIN XL) TAKE 1 TABLET 90 [...] Recurrent cancer of right for Nausea. breast ([facility]) (HCC) traZODone (DESYREL) 100 mg Take 1 Tab by 90 Tab 3 202002/22/2021 tablet mouth at bedtime. documented as of this encounter Discharge Disposition Disposition Code Departure Means Destination Home or Self Long-Term documented in this encounter H&P Notes Matthew Cho MD - 09/10/2020 1330 EDT Endoscopy Sedation for Procedure History & Physical Date: 09/10/2020 Time: 13:40 Location: [facility] Endoscopy - [facility] Planned Procedure: Colonoscopy Request Chief Complaint/Indications for Procedure: Family history of colorectal cancer History Previous Complication with Sedation and/or Anesthesia? No Allergies: No Known Allergies Current Medications: Current Outpatient Medications Medication ??? buPROPion (WELLBUTRIN XL) 300 mg XL tablet ??? fluticasone propionate (FLONASE) 50 mcg/actuation nasal spray ??? lisdexamfetamine (VYVANSE) 30 mg capsule ??? LORazepam (ATIVAN) 0.5 mg tablet ??? melatonin 10 mg tablet ??? ondansetron (ZOFRAN-ODT) 4 mg disintegrating tablet ??? traZODone (DESYREL) 100 mg tablet ??? UNABLE TO FIND Current Facility-Administered Medications Medication Route Frequency ??? diphenhydrAMINE (BENADRYL) injection 25 mg intravenous Once PRN ??? sodium chloride 0.9 % (NS) infusion intravenous PRN Or ??? lactated ringers (LR) infusion intravenous PRN ??? lidocaine (PF) 10 mg/mL (1 %) injection 2 mg intradermal PRN ??? lidocaine (PF) 10 mg/mL (1 %) injection 2 mg intradermal PRN ??? sodium chloride 0.9 % (flush) flush 3 mL intravenous PRN ??? sodium chloride 0.9 % (flush) flush 5 mL intravenous Q8H Past Medical History: Past Medical History: Diagnosis Date ??? Breast cancer ([facility]) 07/2011 ??? Complication of anesthesia N after general anesthesia ??? Environmental allergies ??? Mental disorder ??? Seborrheic dermatitis 12/20/2019 [facility] Social History: Past Surgical History: Procedure Laterality Date ??? BREAST RECONSTRUCTION ??? HAND TENDON SURGERY 1990s ??? MASTECTOMY Social History Tobacco Use ??? Smoking status: Never Smoker ??? Smokeless tobacco: Never Used Substance Use Topics ??? Alcohol use: Yes Alcohol/week: 2.0 standard drinks Types: 2 Standard drinks or equivalent per week Family History: Family History Problem Relation Age of Onset ??? Cancer Brother thyroid ??? Colon Polyps Brother ??? Thyroid Disease Brother Thryoid Cancer ??? Cancer Maternal Grandmother breast, postmenopausal ??? Pacemaker Mother ??? Thyroid Disease Mother ??? Arrhythmia Father Afib ??? Colon Polyps Father ??? Breast Cancer Neg Hx ??? Colon Cancer Neg Hx ??? Endometrial Cancer Neg Hx ??? Esophageal Cancer Neg Hx ??? Ovarian Cancer Neg Hx ??? Pancreatic Cancer Neg Hx ??? Rectal Cancer Neg Hx ??? Stomach Cancer Neg Hx Review of Systems as pertinent: Physical Exam Vital Signs: BP 112/65 Temp 37 ??C (98.6 ??F) (Tympanic) Resp 12 Ht 168.9 cm (66.5) Wt 63.5kg (140 lb) SpO2 97% BMI 22.26 kg/m?? Heart Examination: Cardiac Regularity: Regular Respiratory Examination: Respiratory Pattern: Regular Breath Sounds Right: Clear Breath Sounds Left: Clear Abdominal Examination: Soft, non-tender, bowel sounds normal, no masses, no organomegaly Additional physical exam related to the proposed procedure, patient activity, disease state and treatment as pertinent: Assessment Previous complications with sedation or anesthesia?: No Airway Concerns: None/NA Plan: Proceed with sedation for procedure Fasting Time: Date of Last Liquid: 09/10/20 Time of Last Liquid: 914 Date of Last Solid: 09/08/20 Time of Last Solid: 2199 Patient Appropriate Candidate for Planned Sedation?: Yes Matthew Cho MD 09/10/2020 13:40 documented in this encounter Plan of Treatment Upcoming Encounters Date Type Specialty Care Team Description 12/16/2021 Appointment Infusion Therapy 04/15/2022 Office Visit Hematology and Oncology Poppy Felton PA-C 111 [facility], [facility] 2 [place] [address] (Wo rk) 05/30/2022 Office Visit Surgical Oncology Asa Cameron MD 111 [facility], [facility] 2 [place] [address] (Wo rk) Pending Results Name Type Priority Associated Diagnoses Date/Ti me COLONOSCOPY GI Routine Family history of colorectal cancer 09/10/2020 13:56 EDT Scheduled Orders Name Type Priority Associated Diagnoses Order S chedule COLONOSCOPY GI Routine Family history of colorectal 1 Occurrences starting cancer 09/10/2020 unti l 09/10/2020 documented as of this encounter Procedures Procedure Name Priority Date/Time Associated Comments Diagnosis COLONOSCOPY PROCEDURE Routine 09/10/2020 14:20 Re sults for this EDT procedure are i n the results section. SURGICAL PATHOLOGY Routine 09/10/2020 14:07 Family history of Results for this EDT colorectal cancer procedure are in the results section. documented in this encounter Results COLONOSCOPY PROCEDURE (09/10/2020 14:20 EDT) Specimen Narrative [facility] - 14:20 EDT Procedure Performed Colonoscopy Indications for Exam Screening Colonoscopy. family Hx of colo n cancer Procedure Technique A physical exam was performed. Informed consent was obtained from the patient after explaining all the risks (perforation, bleeding, mi ssed findings, injury to nearby organs, infection and adverse effects to the medicine), benefi ts and alternatives to the procedure which the patient appeared to understand and so stated. ?? The patient was connected to the monitoring devices and placed in the left lateral position. Con tinuous oxygen was provided with a nasal cannula and IV medicine administered thru an indwellin g cannula. After adequate sedation was achieved, a digital exam was performed and the colon oscope introduced into the rectum and advanced under direct visualization to the terminal ile um. The terminal ileum was identified by vis ual landmarks. The endoscope was subsequently removed slowly while carefully examining the col or, texture, anatomy, and integrity of the mucosa on withdrawal. Retroflexion was performed i n the rectum: Yes. The patient was subsequently transferred to the recovery area in sati sfactory condition. Rectal Exam:Normal Estimated Blood Loss: None Complications None Medications Demerol 75 mg Versed 3 mg I was in continuous face to face attenda nce during the administration of moderate sedation services that were monitored by an indep endent trained observer who had no other duties during the procedure. ??Total sedation time was ??28 ??minutes. [place] Bowel Prep Right Colon: 3 ? Transverse Colon: 3 ? Left Colon: 3 ?Total: 9 Findings 14 mm sessile polyp in the cecum. Polype ctomy performed with EMR with submucosal injection and snare resection using forced coag 2 sett ings, endoclip(s) placed. Polyp retrieved. Biopsy obtained. 7 mm sessile polyp in the ascending colo n. Polypectomy performed with snare cautery polypectomy. Polyp retrieved. Biopsy obt ained. 5 mm sessile polyp in the descending col on. Polypectomy performed with snare cautery polypectomy. Polyp retrieved. Biopsy obt ained. 3 mm sessile polyp in the sigmoid colon. Polypectomy performed with cold biopsy forcep. Polyp retrieved. Biopsy obtained. Diagnosis 14 mm sessile polyp in the cecum. Polype ctomy performed with EMR with submucosal injection and snare resection using forced coag 2 sett ings, endoclip(s) placed. Polyp retrieved. Biopsy obtained. 7 mm sessile polyp in the ascending colo n. Polypectomy performed with snare cautery polypectomy. Polyp retrieved. Biopsy obt ained. 5 mm sessile polyp in the descending col on. Polypectomy performed with snare cautery polypectomy. Polyp retrieved. Biopsy obt ained. 3 mm sessile polyp in the sigmoid colon. Polypectomy performed with cold biopsy forcep. Polyp retrieved. Biopsy obtained. Recommendations Follow biopsy results. This electronic signature authenticates all electronic and/or handwritten documentation, including orders, generated by the ottoniel r during the episode of care contained in this record. 09/10/2020 02:20:59 PM By Matthew Cho MD Performing Organization Address City/State/ZIP Code Phon e Number [facility] SURGICAL PATHOLOGY (09/10/2020 14:07 EDT) Note to Patient The following [facility] pathology results CENTER have been interpreted LABORATORY by your pathologist SERVICES and may be available to you before your health provider has had the opportunity to review them. Please allow time for your provider to receive these results and explore management options, if applicable. Final Diagnosis A. COLON, CECUM, POLYP, BIOPSY: [facility] - Fragments of sessile serrated adenoma. [facility]ENTER LABORATORY B. COLON, ASCENDING, POLYP, BIOPSY: [facility] - Fragments of sessile serrated adenoma. C. COLON, DESCENDING, POLYP, BIOPSY: - Fragments of tubular adenoma. - Hyperplastic polyp. D. COLON, SIGMOID, POLYP, BIOPSY: - Hyperplastic polyp. Attestation By the signature [facility] Electronica lly below, the attending CENTER signed by Sanam Morse, physician certifies LABORATORY Kevin Cortes MD on that they have 1) SERVICES 09/11/2020 at 1254 personally conducted a gross and/or microscopic examination of the described specimen(s), and/or personally interpreted the results of laboratory testing of the described specimen(s), and 2) personally rendered or confirmed the above diagnosis. Clinical History Screening, family hx [facility] of colon polyps CENTER LABORATORY SERVICES Gross Description A. [facility] Received in formalin jenny d with proper patient identification (initials S, A) and cecal polyp are nine pale aguirre-pink focally red speckled tissues (0.5 x 0.4 x 0.1 cm to 0.2 x 0.2 x 0.1 cm). Entirely submitted in A1-A2. CENTER LABORATORY B. SERVICES Received in formalin jenny d with proper patient identification (initials S, A) and ascending colon polyp are three insert SP focally red speckled tissues (0.4 x 0.2 x 0.2 cm to 0.3 x 0.2 by less than 0.1 cm). Entirely submitted in B1. C. Received in formalin jenny d with proper patient identification (initials S, A) and descending colon polyp are five white-pink focally pinpoint red tissues (0.3 x 0.2 by less than 0.1 cm to 0.1 by le ss than 0.1 by less than 0.1 cm). Entirely submitted i n C1. D. Received in formalin jenny d with proper patient identification (initials S, A) and sigmoid colon polyp is a pink focally red speckled tissue (0.5 x 0.3 x 0.2 cm). Submitted intact in D1Giovani Owens 09/10/2020 15:41 Performing Lab [facility] LAB [facility] LABORAT[facility] SERVICES Scanned Images [facility] LAB[facility] SERVICES Specimen Tissue - Colon, Polyp Tissue specimen (specimen) - Colon, Poly p Tissue specimen (specimen) - Colon, Poly p Tissue specimen (specimen) - Colon, Poly p Performing Organization Address City/State/ZIP Code Phon e Number [facility] [address] [place] [address] SERVICES documented in this encounter Visit Diagnoses Diagnosis Family history of colorectal cancer Family history of malignant neoplasm of gastrointestinal tract documented in this encounter Administered Medications Inactive Administered Medications - up to 3 most recent administrations Medication Order MAR Action Action Date Dose Rate Site lactated ringers (LR) infusion New Bag 09/10/2020 13:31 EDT 30 mL/hr 30 mL/hr at 30 mL/hr, 30 mL/hr, intravenous, PRN, Starting on Thu09/10/20 at 1321, Until Luz 09/13/20 at 0202, Routine, Preprocedure meperidine (PF) (DEMEROL) injection Given 09/10/2020 13:55 EDT 25 mg IV intravenous, PRN, Starting on Thu09/10/20 at 1353, Until Thu09/10/20 at 1355, Routine Given 09/10/2020 13:53 EDT 50 mg IV midazolam (MDV) (VERSED) injection Given 09/10/2020 13:55 EDT 1 mg IV intravenous, PRN, Starting on Thu09/10/20 at 1352, Until Thu09/10/20 at 1355, Routine Given 09/10/2020 13:52 EDT 2 mg IV ondansetron (PF) (ZOFRAN) injection Given 09/10/2020 13:53 EDT 4 mg IV intravenous, PRN, Starting on Thu09/10/20 at 1353, Until Thu09/10/20 at 1353, Routine documented in this encounter Discontinued Medications Medication Sig Discontinue Reason Start Date End Date polyethylene glycol Instructions mailed Therapy completed 09/10/2020 (GOLYTELY;NULYTELY) once procedure [id number] scheduled. Questions: gram suspension [facility] Gastroenterology: [phone] or GI Doctor's Office. documented as of this encounter Orders Medications Ordered That Might Not Have Count Last Ord ered Date First Ordered Date Been Administered diphenhydrAMINE (BENADRYL) injection 25 mg 1 09/10 lidocaine (PF) 10 mg/mL (1 %) injection 2 2 2020 mg sodium chloride 0.9 % (flush) flush 3 mL 1 021 sodium chloride 0.9 % (flush) flush 5 mL 1 021 sodium chloride 0.9 % (NS) infusion 1 09/10/2020 documented in this encounter Care Teams Calender Tender Relationship Specialty Start Date End Date Filomena Ochoa PA-C PCP - General 03/02/18 [address] [place] [address] documented as of this encounter
--- OUTSIDE RECORDS SUMMARY | 2021-11-29 00:24 | XMS_ITS | Encounter Summary ---
:1970 Author Organization [facility] Address [address] [place] [address] Care Team Providers Name Role Phone Filomena Ochoa PA-C Primary Care Provider [phone] Reason for Referral Referral (Routine) - Authorized Specialty Diagnoses / Referred By Contact Referred To Contact Procedures Gastroenterology and Diagnoses Family history of colorectal cancer Matthew Cho, Mp5 Gi Hepatology Procedures COLONOSCOPY SC COLONOSCOPY FLX DX W/COLLJ SPEC WHEN PFRMD 111 [facility] [address] Phone: [facility] 5 [place] [address] Referral ID Status Reason Start Date Expiration Date Visits V isits Requested Authorized [id number] Authorized 08/09/2020 02/22/2021 1 1 Encounter Details Date Type Department Care Team Description 08/09/2020 Orders Only [facility] Matthew Cho Famil y history of Gastroenterology - Augusto John MD colorectal cancer [address] (Primary Dx) [address] [phone] [address] [place] [address] Social History Tobacco Use Types [...] Sig Dispensed Refills Start Date End Date polyethylene glycol Instructions mailed 4000 mL 0 021 09/10/2020 (GOLYTELY;NULYTELY) once procedure [id number] scheduled. Questions: gram suspension [facility] Gastroenterology: [phone] or GI Doctor's Office. documented in this encounter Plan of Treatment Upcoming Encounters Date Type Specialty Care Team Description 12/16/2021 Appointment Infusion Therapy 04/15/2022 Office Visit Hematology and Oncology Poppy Felton PA-C 111 [facility], [address] [place] [address] (Wo rk) 05/30/2022 Office Visit Surgical Oncology Asa Cameron MD 111 [facility], [address] [place], [place] [address] (Wo rk) Pending Results Name Type Priority Associated Diagnoses Date/Ti me COLONOSCOPY GI Routine Family history of colorectal cancer 09/10/2020 13:56 EDT Scheduled Orders Name Type Priority Associated Diagnoses Order S chedule COLONOSCOPY GI Routine Family history of colorectal Expected: 11/09/2020 cancer (Approximate) documented as of this encounter Visit Diagnoses Diagnosis Family history of colorectal cancer - Pr imary Family history of malignant neoplasm of gastrointestinal tract documented in this encounter Care Teams Public Services Librarian Relationship Specialty Start Date End Date Filomena Ochoa PA-C PCP - General 03/02/18 [address] [place] [address] documented as of this encounter
--- OUTSIDE RECORDS SUMMARY | 2021-11-29 00:24 | XMS_ITS | Encounter Summary ---
:1970 Author Organization [facility] Address [address] [place] [address] Care Team Providers Name Role Phone Filomena Ochoa PA-C Primary Care Provider [phone] Reason for Visit Reason Onset Date Comments Appointment Related 09/17/2020 Encounter Details Date Type Department Care Team Description 09/17/2020 Telephone [facility] Poppy Felton, Mary ointment Related Hematology & Oncology PA-Nori - [address] [address] [address], [place] [address] (Wo rk) Social History Tobacco [...] this encounter Miscellaneous Notes Telephone Encounter - Suad Grover - 09/17/2020 0727 EDT Patient cancelled their 09/18/20 visit at 10:00 with Poppy Felton PA-C via Televox reminder call. Please call patient to reschedule their appointment. documented in this encounter Plan of Treatment Upcoming Encounters Date Type Specialty Care Team Description 12/16/2021 Appointment Infusion Therapy 04/15/2022 Office Visit Hematology and Oncology Poppy Felton PA-C [address] [phone] (Wo rk) 05/30/2022 Office Visit Surgical Oncology Asa Cameron MD [address] [phone] (Wo rk) documented as of this encounter Visit Diagnoses Not on filedocumented in this encounter Care Teams Dynamic Balancer Relationship Specialty Start Date End Date Filomena Ochoa PA-C PCP - General 03/02/[address] [place] [phone] documented as of this encounter
--- OUTSIDE RECORDS SUMMARY | 2021-11-29 00:24 | XMS_ITS | Encounter Summary ---
:1970 Author Organization [facility] Address [address] [place] [address] Care Team Providers Name Role Phone Filomena Ochoa PA-C Primary Care Provider [phone] Encounter Details Date Type Department Care Team Description 06/25/2020 Orders Only [facility] Cancer [facility], Recurrent cancer of Hematology & Oncology - [facility] breast ([facility]) Main [place] (Primary Dx) [address] [place] [address] Social History Tobacco Use Types [...] Hematology and Oncology Poppy [place], PAChuyC [address] [phone] (Wo rk) 05/30/2022 Office Visit Surgical Oncology Asa [place] MD [address] [phone] (Wo rk) documented as of this encounter Results (ABNORMAL) COMPLETE BLOOD COUNT AND DIFFERENTIAL (06/26/2020 11:30 EDT) Pathologist Sig nature WBC 6.39 4.00 - 12.40 [facility] LABORATORY SERVICES RBC 4.45 3.86 - 5.04 [facility] LABORATORY SERVICES Hemoglobin 14.1 11.6 - 15.2 [facility] gm/dL LABORATORY SERVICES HCT 40.5 34.9 - 44.4 % [facility] LABORATORY SERVICES MCV 91 81 - 98 fl [facility] LABORATORY SERVICES MCH 31.7 26.7 - 33.3 pg [facility] LABORATORY SERVICES MCHC 34.8 32.1 - 35.9 [facility] gm/dL LABORATORY SERVICES RDW-CV 12.3 <14.7 % [facility] LABORATORY SERVICES RDW-SD 40.9 <50.4 fl [facility] LABORATORY SERVICES PLT 217 141 - 377 K/[facility] LABORATORY SERVICES MPV 8.6 (L) 9.5 - 12.7 fl [facility] LABORATORY SERVICES Neutrophils 62.6 % [facility] LABORATORY SERVICES Lymphocytes 28.3 % [facility] LABORATORY SERVICES Monocytes 7.5 % [facility] LABORATORY SERVICES Eosinophils 0.8 % [facility] LABORATORY SERVICES Basophils 0.3 % [facility] LABORATORY SERVICES Immature Grans 0.5 % [facility] LABORATORY SERVICES Absolute Neutrophils 4.00 2.20 - 8.85 [facility] LABORATORY SERVICES Absolute Lymphocytes 1.81 1.09 - 3.30 [facility] LABORATORY SERVICES Absolute Monocytes 0.48 0.10 - 0.80 [facility] LABORATORY SERVICES Absolute Eosinophils 0.05 0.03 - 0.61 [facility] LABORATORY SERVICES Absolute Basophils 0.02 0.01 - 0.11 [facility] LABORATORY SERVICES Absolute Immature 0.03 0.00 - 0.06 [facility] LABORATORY SERVICES Type of Differential: Auto [facility] LABORATORY SERVICES Specimen Blood - Venous blood (substance) Performing Organization Address City/State/ZIP Code Phon e Number [facility] LABORATORY [address] [place] [address] SERVICES (ABNORMAL) COMPREHENSIVE METABOLIC PANEL (ONCOLOGY USE ONLY-INC MG) (06/26/2020 11:30 EDT) Sodium 138 136 - 145 [facility] mEq/L [facility] Potassium 3.5 3.5 - 5.0 [facility] mEq/L [facility] Chloride 102 96 - 110 [facility] mEq/L [facility] CO2 Total 28 22 - 32 mEq/L [facility] LABORATORY SERVICES Glucose 102 (H) 70 - 100 [facility] mg/dL [facility] BUN 21 10 - 26 mg/dL [facility] LABORATORY SERVICES Creatinine 0.82 0.52 - 1.04 [facility] mg/dL [facility] eGFR 85Comment: eGFR >60 [facility] calculated using mL/min/1.73m2 [facility] CKD-EPI equation SERVICES for non- Americans. Multiply eGFR by 1.16 for patients. Total Protein 6.9 6.3 - 8.2 [facility] g/dL [facility] Albumin 4.1 3.4 - 4.9 [facility] g/dL [facility] Alkaline 59 38 - 126 U/L [facility] Phosphatase [facility] AST 30 15 - 46 U/L [facility] LABORATORY SERVICES ALT 20 <35 U/L [facility] LABORATORY SERVICES Bilirubin, Total <0.5 <1.4 mg/dL [facility] LABORATORY SERVICES Calcium 10.1 8.5 - 10.5 [facility] MEDICAL mg/dL [facility] SERVICES Calculated Calcium 10.0 8.5 - 10.5 [facility] MEDICAL mg/dL [facility] Magnesium 2.1 1.7 - 2.8 [facility] MEDICAL mg/dL [facility] Specimen Blood - Venous blood (substance) Performing Organization Address City/State/ZIP Code Phon e Number [facility] LABORATORY [address] [place] [address] SERVICES documented in this encounter Visit Diagnoses Diagnosis Recurrent cancer of right breast (HCC-CM S) (HCC) - Primary documented in this encounter Care Teams Skiver Counter Relationship Specialty Start Date End Date Filomena Ochoa PA-C PCP - General 03/02/18 2 [place] [address] documented as of this encounter
--- OUTSIDE RECORDS SUMMARY | 2021-11-29 00:24 | XMS_ITS | Encounter Summary ---
:1970 Author Organization [facility] Address [address] [place] [address] Care Team Providers Name Role Phone Filomena Ochoa PA-C Primary Care Provider [phone] Encounter Details Date Type Department Care Team Description 06/26/2020 Orders Only [facility] Cancer Center Jessi Pleitez MD [facility] cancer of Hematology & Oncology PhD right [facility] - [address] ([facility]) (Primary 111 [facility] Dx) [place], [place] [id number] [place] [address] [place], [address] [place] [address] (Wo rk) Social History Tobacco [...] Hematology and Oncology Poppy [place] PA-C [address] [phone] (Wo rk) 05/30/2022 Office Visit Surgical Oncology Asa [place] MD [address] [phone] (Wo rk) documented as of this encounter Results VITAMIN D (25,OH) (06/26/2020 11:30 EDT) 25OH Vitamin D 53.3 30.0 - 100.0 [facility] MEDICAL [facility] Comment: ng/mL [facility]ENTER LABORATORY Vitamin D 25,OH Interpretive Ranges: SERV ICES Deficiency: ??<10.0 ng/mL Insufficiency: ??10.0 - 30.0 ng/mL Sufficiency: ??30.0 - 100.0 ng/mL Toxicity: ??>100.0 ng/mL Specimen Blood - Venous blood (substance) Performing Organization Address City/State/ZIP Code Phon e Number [facility] LABORATORY [address] [place] [address] SERVICES documented in this encounter Visit Diagnoses Diagnosis Recurrent cancer of right breast (HCC-CM S) (HCC) - Primary documented in this encounter Orders Appointment Requests Count Last Ordered Date First Ord ered Date ONCBCN INFUSION APPOINTMENT REQUEST - 1 07/03/2020 CALCULATED documented in this encounter Care Teams Mail Clerk Bills Relationship Specialty Start Date End Date Filomena Ochoa PA-C PCP - General 03/02/18 [address] [place] [phone] documented as of this encounter
--- OUTSIDE RECORDS SUMMARY | 2021-11-29 00:24 | XMS_ITS | Encounter Summary ---
:[address] [facility] Address [address] [place] [address] Care Team Providers Name Role Phone Filomena Ochoa PA-C Primary Care Provider [phone] Reason for Visit Reason Comments Injections Prior Authorization (Routine/Next Available) - Closed Specialty Diagnoses / Procedures Referred By Contact Refer red To Contact Hematology and Diagnoses Malignant neoplasm of female breast, unspecified estrogen receptor status, unspecified laterality, unspecified site of breast ([facility]) (HCC) Jessi Pleitez MD PhD Ep2 Hem/Onc Oncology [address] [place] [id number] [place] [address], [address] [place], [place] Fax: [phone] Referral ID Status Reason Start Date Expiration Date Visits Requ ested Visits Authorized [id number] Closed Other 02/06/2020 09/11/2021 15 15 Encounter Details Date Type Department Care Team Description 08/21/2020 Hospital Encounter [facility] Cancer Center Recu rrent cancer of Hematology & Oncology right breast ([facility]) - [facility] (Primary Dx) [address] [place] [address] Social History Tobacco Use Types Packs/Day Years [...] Sign Reading Time Taken Comments Blood Pressure 109/64 08/21/2020 1041 EDT Pulse 72 08/21/2020 1041 EDT Temperature 36.6 ??C (97.8 ??F) 08/21/2020 1041 EDT Respiratory Rate 16 08/21/2020 1041 EDT Oxygen Saturation 100% 08/21/2020 1041 EDT Inhaled Oxygen Concentration - - Weight 63.7 kg (140 lb 8 oz) 08/21/2020 1041 EDT Height - - Body Mass Index 22.31 06/26/2020 1134 EDT [...] TO FIND as needed. Med Name: 0 Brian'cherelle [facility] buPROPion (WELLBUTRIN XL) TAKE 1 TABLET DAILY 90 Tab 3 0 06/15/2020 05/08/2021 300 mg XL tabletIndications: Depression, unspecified depression type lisdexamfetamine Take 1 Cap by mouth 28 Cap 0 07/04/2020 08/29/2020 (VYVANSE) 40 mg capsule every morning for 28 days. Daily Max: 40 mg lisdexamfetamine Take 1 Cap by mouth 84 Cap 0 07/04/2020 08/25/2020 (VYVANSE) 40 mg capsule every morning for 84 days. Daily Max: 40 mg ondansetron (ZOFRAN-ODT) Take 1 Tab by mouth 10 Tab 0 05/12/2021 4 mg disintegrating every 8 hours as tabletIndications: needed for Nausea. Recurrent cancer of right breast (HCC-CMS) (HCC) polyethylene glycol Instructions mailed 4000 mL 0 021 09/10/2020 (GOLYTELY;NULYTELY) once procedure [id number] -5.86 gram scheduled. suspension Questions: [facility] Gastroenterology: [phone] or GI Doctor's Office. polyethylene glycol Instructions mailed 4000 mL 0 07/27/ 021 08/25/2020 (GOLYTELY;NULYTELY) once procedure [id number] -5.86 gram scheduled. suspension Questions: [facility] Gastroenterology: [phone] or GI Doctor's Office. traZODone (DESYREL) 100 Take 1 Tab by mouth 90 Tab 3 02/22/2021 mg tablet at bedtime. documented as of this encounter Discharge Disposition Disposition Code Departure Means Destination Home or Self Care documented in this encounter Progress Notes Candice Adams RN - 08/21/2020 1100 EDT Jia presents today for faslodex injections. Noted to have had labs earlier in this clinic visit. Labs from last visit in range, no need for dose adjustment. Bilateral IM injections given in gluteal muscle while in prone position per patient request. I was supervised by Dr. Stovall who was present and immediately available in the office suite. CANDICE ADAMS RN 08/21/2020 18:42 documented in this encounter Plan of Treatment Upcoming Encounters Date Type Specialty Care Team Description 12/16/2021 Appointment Infusion Therapy 04/15/2022 Office Visit Hematology and Oncology Poppy [place] PA-C 111 [facility] 2 [place], [place] [phone] (Wo rk) 05/30/2022 Office Visit Surgical Oncology Asa [place] MD 111 [facility] 2 [place] [phone] (Wo rk) documented as of this encounter Visit Diagnoses Diagnosis Recurrent cancer of right breast (HCC-CM S) (HCC) - Primary documented in this encounter Administered Medications Inactive Administered Medications - up to 3 most recent administrations Medication Order MAR Action Action Date Dose Rate Site fulvestrant (FASLODEX) injection 500 Given 08/21/2020 10:49 EDT 500 mg mg 500 mg, intramuscular, NOW X1, 1 dose, On Thu08/21/20 at 1045, Routine documented in this encounter Orders Medications Ordered That Might Not Have Count Last Ord ered Date First Ordered Date Been Administered fulvestrant (FASLODEX) injection 500 mg 1 08/22/19 21 Appointment Requests Count Last Ordered Date First Ord ered Date ONCBCN INFUSION APPOINTMENT REQUEST - 1 08/21/2020 CALCULATED documented in this encounter Care Teams Tool Grinder Relationship Specialty Start Date End Date Filomena Ochoa PA-C PCP - General 03/02/18 2 [place] [phone] documented as of this encounter
--- OUTSIDE RECORDS SUMMARY | 2021-11-29 00:24 | XMS_ITS | Encounter Summary ---
:1970 Author Organization [facility] Address [address] [place] [address] Care Team Providers Name Role Phone Filomena Ochoa PA-C Primary Care Provider [phone] Encounter Details Date Type Department Care Team Description 07/24/2020 Orders Only [facility] Cancer Center Jessi Pleitez MD PhD Hematology & Oncology - [address] [place] [address] 2 [place], [place] [phone] [place] [phone] (Wo rk) Social History Tobacco Use Types [...] Hematology and Oncology [place] PA-C 111 [facility], [facility] 2 [place], [place] [phone] (Wo rk) 05/30/2022 Office Visit Surgical Oncology Asa [place] MD 111 [facility], [facility] 2 [place], [place] [phone] (Wo rk) documented as of this encounter Visit Diagnoses Not on filedocumented in this encounter Care Teams Pickling Machine Operator Relationship Specialty Start Date End Date Filomena Ochoa PA-C PCP - General 03/02/18 2 [place] [phone] documented as of this encounter
--- OUTSIDE RECORDS SUMMARY | 2021-11-29 00:24 | XMS_ITS | Encounter Summary ---
:1970 Author Organization [facility] Address [address] [place] [address] Care Team Providers Name Role Phone Filomena Ochoa PA-C Primary Care Provider [phone] Encounter Details Date Type Department Care Team Description 06/22/2020 Orders Only [facility] Cancer Center Jessi Pleitez MD PhD Hematology & Oncology - [address] [place] [address] [address] [place], [place] [address] [place] [phone] (Wo rk) Social History Tobacco Use Types [...] and Oncology Poppy [place] PA-C 111 [facility], [facility] 2 [place], [place] [phone] (Wo rk) 05/30/2022 Office Visit Surgical Oncology Asa [place] MD 111 [facility], [facility] 2 [place], [place] [phone] (Wo rk) documented as of this encounter Visit Diagnoses Not on filedocumented in this encounter Care Teams Dust Handler Relationship Specialty Start Date End Date Filomena Ochoa PA-C PCP - General 03/02/18 2 [place] [phone] documented as of this encounter
--- OUTSIDE RECORDS SUMMARY | 2021-11-29 00:24 | XMS_ITS | Encounter Summary ---
:1970 Author Organization [facility] Address [address] [place] [address] Care Team Providers Name Role Phone Filomena Ochoa PA-C Primary Care Provider [phone] Reason for Visit Reason Onset Date Comments Appointment Related 08/20/2020 Encounter Details Date Type Department Care Team Description 08/20/2020 Telephone [facility] Cancer Center Jessi Pleitez MD PhD Appointment Related Hematology & Oncology 111 [facility], [address], [address] [place], [place] [address] [place] [address] [phone] (Wo rk) Social History Tobacco Use [...] this encounter Miscellaneous Notes Telephone Encounter - Audelia Heaton - 08/20/2020 1617 EDT Patient asking if she might be able to reschedule her 6.29 appointments to Thursday 6.30. If she does not hear back she will be here on 6.29 documented in this encounter Plan of Treatment Upcoming Encounters Date Type Specialty Care Team Description 12/16/2021 Appointment Infusion Therapy 04/15/2022 Office Visit Hematology and Oncology [place] PA-C 111 [facility], [facility] 2 [place], [place] [phone] (Wo rk) 05/30/2022 Office Visit Surgical Oncology Asa [place] MD 111 [facility], [facility] 2 [place], [place] [phone] (Wo rk) documented as of this encounter Visit Diagnoses Not on filedocumented in this encounter Care Teams Quality Technician Fiberglass Relationship Specialty Start Date End Date Filomena Ochoa PA-C PCP - General 03/02/[address] [place] [phone] documented as of this encounter
--- OUTSIDE RECORDS SUMMARY | 2021-11-29 00:24 | XMS_ITS | Encounter Summary ---
:1970 Author Organization [facility] Address [address] [place] [address] Care Team Providers Name Role Phone Filomena Ochoa PA-C Primary Care Provider [phone] Encounter Details Date Type Department Care Team Description 10/25/2020 Phlebotomy Only [facility] Blood Doctor, Recurr ent cancer of Hematology & Oncology [facility] Hem Onc [facility] ([facility]CC-[facility]) (Primary 111 [facility] Dx) [place] [address] Social History Tobacco Use Types [...] documented as of this encounter Progress Notes Dhara Peterson MA - 10/25/2020 1130 EDT Venipuncture performed for Dittus Per orders of Dittus Number of attempts 1 right ac PC I was supervised by Ades who was present and immediately available in the office suite. DHARA PETERSON MA 10/25/2020 11:48 documented in this encounter Plan of Treatment Upcoming Encounters Date Type Specialty Care Team Description 12/16/2021 Appointment Infusion Therapy 04/15/2022 Office Visit Hematology and Oncology [place] PA-C 111 [facility], [facility] 2 [place], [place] [phone] (Wo bradford) 05/30/2022 Office Visit Surgical Oncology Asa [place] MD 111 [facility], [facility] 2 [place], [place] [phone] (Wo rk) documented as of this encounter Procedures Procedure Name Priority Date/Time Associated Comments Diagnosis COMPREHENSIVE STAT 10/25/2020 11:46 Recurrent cancer of Res ults for this METABOLIC PANEL EDT right breast procedure ar e in (ONCOLOGY USE ONLY-INC ([facility]) the r esults MG) section. BILIRUBIN Routine 10/25/2020 11:46 Recurrent cancer of Resu lts for this DIRECT/INDIRECT EDT right breast procedure ar e in ([facility]) the results section. documented in this encounter Results BILIRUBIN DIRECT/INDIRECT (10/25/2020 11:46 EDT) Pathologist Sig nature Conjugated Bilirubin 0.0 0.0 - 0.3 mg/dL [facility] Unconjugated Bilirubin 0.4 0.0 - 1.1 mg/dL [facility] LABORATORY SERVICES Specimen Blood - Venous blood (substance) Performing Organization Address City/State/ZIP Code Phon e Number [facility] [address] [place] [address] SERVICES COMPREHENSIVE METABOLIC PANEL (ONCOLOGY USE ONLY-INC MG) (10/25/2020 11:46 EDT) Sodium 139 136 - 145 [facility] mmol/L [place] [facility] Potassium 4.0 3.5 - 5.0 [facility] mEq/L [place] [facility] Chloride 103 96 - 110 [facility] mEq/L [place] [facility] CO2 Total 30 22 - 32 mEq/L [facility] LABOR[facility] SERVICES Glucose 84 70 - 100 [facility] mg/dL [facility] BUN 23 10 - 26 mg/dL [facility] SERVICES Creatinine 0.81 0.52 - 1.04 [facility] mg/dL [place] [facility] eGFR 86Comment: eGFR >60 [facility] calculated using mL/min/1.73m2 [facility] CKD-EPI equation SERVICES for non- Americans. Multiply eGFR by 1.16 for patients. Total Protein 6.7 6.3 - 8.2 [facility] g/dL [facility] Albumin 4.4 3.4 - 4.9 [facility] g/dL [facility] Alkaline 41 38 - 126 U/L [facility] Phosphatase [facility] AST 29 15 - 46 U/L [facility] SERVICES ALT 21 <35 U/L [facility] SERVICES Bilirubin, Total <0.5 <1.4 mg/dL [facility] SERVICES Calcium 10.3 8.5 - 10.5 [facility] mg/dL [place] [facility] Calculated Calcium 10.0 8.5 - 10.5 [facility] mg/dL [place] [facility] Magnesium 2.1 1.7 - 2.8 [facility] mg/dL [facility] Specimen Blood - Venous blood (substance) Performing Organization Address City/State/ZIP Code Phon e Number [facility] [address] [place] [address] SERVICES documented in this encounter Visit Diagnoses Diagnosis Recurrent cancer of right breast (HCC-CM S) (HCC) - Primary documented in this encounter Care Teams Sheriffs Officer Relationship Specialty Start Date End Date Filomena Ochoa PA-C PCP - General 03/02/18 2 [place] [phone] documented as of this encounter
--- OUTSIDE RECORDS SUMMARY | 2021-11-29 00:25 | XMS_ITS | Encounter Summary ---
:1970 Author Organization [facility] Address [address] [place] [address] Care Team Providers Name Role Phone Filomena Ochoa PA-C Primary Care Provider [phone] Reason for Visit Reason Comments Mass Mass Consult (Routine) - Specialty Report Received Specialty Diagnoses / Procedures Referred By Contact Refer red To Contact Orthopedic Surgery Diagnoses Dupuytren contracture Filomena Ochoa, Asa Pandey PA-C MD [address] [place] [phone] Fax: Referral ID Status Reason Start Expiration Visits Visits Date Date Requested Authorized [id number] Specialty Specialty 08/22/2019 1 1 Report Services Received Required Encounter Details Date Type Department Care Team Description 11/08/2019 Office Visit [facility] Asa Pandey Orthopedic Surgery - MD Alec fibromatosis Bam uBrnso Dr [address] (dupuytren) (Primary [address] [facility]) [place] [phone] Social History Tobacco Use Types Packs/Day Years [...] been in contact with No / Unsure 10/20/2019 13:39 EDT someone who was confirmed or suspected to have Coronavirus / COVID-19? documented as of this encounter Last Filed Vital Signs Vital Sign Reading Time Taken Comments Blood Pressure - - Pulse - - Temperature - - Respiratory Rate - - Oxygen Saturation - - Inhaled Oxygen Concentration - - Weight 64 kg (141 lb) 11/08/2019 0912 EDT per pt Height 169.5 cm (5' 6.75) 11/08/2019 09 EDT per pt Body Mass Index 22.25 11/08/2019 0912 EDT documented in this encounter Functional Status [...] as of this encounter Progress Notes Asa Pandey MD - 11/08/2019 0900 EDT The patient presents with a mass involving her Right ring finger and left ring finger. The patient'yevgeniy is rated as 0 (No Pain) and does not radiate. Symptom onset was gradual approximately 1 years(s) ago due to unknown reasons. Symptoms are associated with nothing. REVIEW OF SYSTEMS: Yes No Yes No Fever/Chills x Joint pain x Fatigue x Muscle pain x Night sweats x Morning stiffness x Weight change x If yes, duration Gain or loss? Numbness/tingling x Headaches x If yes, where? Dizziness x Muscle weakness x Chest pain x Excessive thirst x Shortness of breath x Change in mood x Cough x Nervous or anxious x Nausea/vomiting x Sad or depressed x Abdomnial pains/cramps x Excessive bruising x Heartburn/Reflux x Urinary Changes x Rash x Balance Issues x The patient is a 49-year-old vjdpe-eunq-kqafreqb woman who presents today with bilateral ring fingerpalmar cords. She noticed the right side first and this is the more severe cord. She has some minimal pain associated with this that today she rates as a 0 out of 10. She noticed the right side cord about a year ago and does not recall any specific injury. She does enjoy mountain biking pretty aggressively and has calluses at her ring and middle fingers bilaterally associated with that mountain biking. She denies any numbness or tingling. She has seen Dr. Greenfield in the past regarding this problem. She has not had any treatment for this issue. The past medical, family and social history have been reviewed in the patient chart. OBJECTIVE: Ht 169.5 cm (66.75) Comment: per pt Wt 64 kg (141 lb) Comment: per pt BMI 22.25 kg/m?? Psych: She is alert and oriented x 3 with normal affect. Constitutional: She is well-developed and in no significant distress. Eyes: Sclerae clear. Heart: Regular rate and rhythm Resp: Breathing is regular and nonlabored without audible wheezing. Musculoskeletal: Right hand: A Dupuytren's cord is present in the palm of the hand that extends from the digital crease proximally. The total length of the cord is about 2.5 cm. She has no tenderness over the cord. Shehas no contracture present associated with the cord. Again a callus is present at her middle and ring fingers overlying the MCP joint. Digital ranges of motion are full and she is able to make a normalfist. She has good capillary refill throughout and has normal sensation to light touch throughout the hand. Left hand: A slightly less robust Dupuytren's cord is present in the palm of the hand that extends from the digital crease proximally. The total length of the cord is about 2.5 cm. She has no tenderness over the cord. She has no contracture present associated with the cord. Again a callus is present at her middle and ring fingers overlying the MCP joint. Digital ranges of motion are full and she is able to make a normal fist. She has good capillary refill throughout and has normal sensation to lighttouch throughout the hand. ASSESSMENT/PLAN: Encounter Diagnosis Name Primary? Palmar fascial fibromatosis (dupuytren) Yes The patient does not have a family history of Dupuytren's disease and I am not sure whether this represents Dupuytren's disease or palmar fasciitis associated with the repetitive microtrauma from mountain biking. At this point I think that treatment is the same either way. I have suggested that she domassage over the palmar fascia to try and soften it and she should continue to do the stretching exercises that she has been doing. I will follow-up with her as needed if the patient sees a progressionof the disease. I explained to her that if this is palmar fasciitis then we would not expect to see any progression of the disease in terms of the development of a contracture whereas if this represents Dupuytren's disease then we would anticipate that the cord will cause a contracture over time. I also gave her some literature on Dupuytren's disease. documented in this encounter Plan of Treatment Upcoming Encounters Date Type Specialty Care Team Description 12/16/2021 Appointment Infusion Therapy 04/15/2022 Office Visit Hematology and Oncology Poppy Felton PA-C [address] [phone] ([place]) 05/30/2022 Office Visit Surgical Oncology Asa Cameron MD [address] [phone] ([place]) documented as of this encounter Visit Diagnoses Diagnosis Palmar fascial fibromatosis (dupuytren) - Primary documented in this encounter Care Teams Application Development Intern Relationship Specialty Start Date End Date Filomena Ochoa PA-C PCP - General 03/02/18 [address] [place] [phone] documented as of this encounter
--- OUTSIDE RECORDS SUMMARY | 2021-11-29 00:25 | XMS_ITS | Encounter Summary ---
:1970 Author Organization [facility] Address [address] [place] [address] Care Team Providers Name Role Phone Filomena Ochoa PA-C Primary Care Provider [phone] Reason for Visit Reason Onset Date Comments Referral Request 12/21/2019 Encounter Details Date Type Department Care Team Description 12/21/2019 Telephone [facility] Asa Cameron MD Referral Request Surgical Oncology - Main [address] [place] [address], [address] [place], [place] [address] [place] [address] [phone] (Wo rk) Social History Tobacco Use [...] this encounter Miscellaneous Notes Telephone Encounter - Freida Kaba - 12/21/2019 1032 EDT Reason for Call: Referral Request Summary/Symptoms: Patient would like Dr. Cameron to put in a referral for her to be seen by Jessi Pleitez Please call back if any further questions Freida Kaba 12/21/2019 10:33 documented in this encounter Plan of Treatment Upcoming Encounters Date Type Specialty Care Team Description 12/16/2021 Appointment Infusion Therapy 04/15/2022 Office Visit Hematology and Oncology Poppy Felton PA-C 111 [facility] [place] [phone] (Wo rk) 05/30/2022 Office Visit Surgical Oncology Asa Cameron MD 111 [facility] [place] [address] (Wo rk) documented as of this encounter Visit Diagnoses Not on filedocumented in this encounter Care Teams Slat Grader Relationship Specialty Start Date End Date Filomena Ochoa PA-C PCP - General 03/02/18 2 [place] [phone] documented as of this encounter
--- OUTSIDE RECORDS SUMMARY | 2021-11-29 00:25 | XMS_ITS | Encounter Summary ---
:1970 Author Organization [facility] Address [address] [place] [address] Care Team Providers Name Role Phone Maycol Bravo PA-C Primary Care Provider Reason for Visit Reason Onset Date Comments Medications Refill 05/09/2020 Encounter Details Date Type Department Care Team Description 05/09/2020 Refill [facility] Adult Nova Bravo, Medications Refill Primary Care - Hallie GUDINO [address] [place] [address] [place], [place] [phone] (Wo rk) Social History Tobacco Use [...] Take 1 Cap by 84 Cap 0 202006/05/2020 40 mg capsule mouth every morning for 84 days. Daily Max: 40 mg documented in this encounter Miscellaneous Notes Telephone Encounter - Maycol North RN - 05/09/2020 1257 EDT Pharmacy confirmed previous script cancelled electronically at 12:23 today. elephone Encounter - Maycol Bravo PA-C - 05/09/2020 1219 EDT I signed rx and [facility] has my NICOLE attached to my signature. eprescribed again Please cancel previously sent rx. elephone Encounter - Eva Harrison RN - 05/09/2020 1024 EDT New rx pended for maycol bravo Other rx will need to be cx at mail order elephone Encounter - Kenzie Osborne - 05/09/2020 0944 EDT Requested Prescriptions Pending Prescriptions Disp Refills ??? lisdexamfetamine (VYVANSE) 40 mg capsule 84 Cap 0 Sig: Take 1 Cap by mouth every morning for 84 days. Daily Max: 40 mg *pateint states that her mail order informed her that they had some wrong information for her scriptand they have not filled it yet. Patient is asking if that one can be cancelled and a one month supply can go the [facility] [place]. Mail order will need a new script going forward. mailorder told her that the NICOLE was wrong on script Alondra loyola Confirmed Pharmacy? Yes Patient out of medication? Yes: Needs Refill Now Last Refill Date: 05.09.20 Refills left? (explain exceptions requiring early refill) No Recent Visits Date Type Provider Dept 08/22/19 Office Visit Maycol Bravo PA-C [place] [facility] 12/24/18 Office [facility] Showing recent visits within past 540 days with a meds authorizing provider and meeting all other requirements Future Appointments No visits were found meeting these conditions. Showing future appointments within next 150 days with a meds authorizing provider and meeting all other requirements Future appointment: Other saw SB last week Kenzie Osborne 05/09/2020 9:45 documented in this encounter Plan of Treatment Upcoming Encounters Date Type Specialty Care Team Description 12/16/2021 Appointment Infusion Therapy 04/15/2022 Office Visit Hematology and Oncology Poppy Felton PA-C 111 [facility], [facility] 2 [place], [place] [phone] (Wo rk) 05/30/2022 Office Visit Surgical Oncology Asa Cameron MD 111 [facility], [facility] 2 [place], [place] [phone] (Wo rk) documented as of this encounter Visit Diagnoses Not on filedocumented in this encounter Discontinued Medications Medication Sig Discontinue Reason Start Date End Date lisdexamfetamine (VYVANSE) Take 1 Cap by Reorder 05/09/2020 05/09/2020 40 mg capsule mouth every morning for 84 days. Daily Max: 40 mg documented as of this encounter Care Teams Senior Cognos Developer Relationship Specialty Start Date End Date Maycol Bravo PA-C PCP - General 03/02/18 2 [place] [phone] documented as of this encounter
--- OUTSIDE RECORDS SUMMARY | 2021-11-29 00:25 | XMS_ITS | Encounter Summary ---
:1970 Author Organization [facility] Address [address] [place] [address] Care Team Providers Name Role Phone Filomena Ochoa PA-C Primary Care Provider [phone] Reason for Visit Reason Onset Date Comments Medications Refill 06/05/2020 Encounter Details Date Type Department Care Team Description 06/05/2020 Refill [facility] Adult Nova Ochoa, Medications Refill Primary Care - Hallie GUDINO [address] [place] [address] [place], [place] [phone] (Wo rk) Social History Tobacco Use [...] Telephone Encounter - Filomena Ochoa PA-C - 06/06/2020 1425 EDT Noted. Telephone Encounter - Filomena Coker RN - 06/06/2020 1407 EDT Call to [facility] - 05/11 picked up #30 of Vvanse 40mg capsules at [place] [facility]. elephone Encounter - Filomena Ochoa PA-C - 06/06/2020 1320 EDT Please verify this with pharmacy and ensure the other 60 tabs were not dispensed. Eprescribed to new pharmacy. elephone Encounter - Filomena Coker RN - 06/06/2020 1111 EDT Patient was only able to receive #30 at local pharmacy. Now is in [place], needs 3 month fill. Pended to pcp, #84. elephone Encounter - Filomena Coker RN - 06/06/2020 1109 EDT From: Jia Dow To: Office of Filomena Ochoa PA-C Sent: 06/05/2020 12:54 EDT Subject: Medication Renewal Request Refills have been requested for the following medications: lisdexamfetamine (VYVANSE) 40 mg capsule [Filomena Ochoa PA-C] Patient Comment: As I picked up this prescription last month at my local pharmacy, they could only fill 30 days, not 90. This month I am in [place] and was hop ing e-script for 40 mg Vyvanse (30 days supply) could be sent to [place] pharmacy listed below. Please call [phone] with any questions. Thank you! Preferred pharmacy: [facility], [address] [facility] [address] documented in this encounter Plan of Treatment Upcoming Encounters Date Type Specialty Care Team Description 12/16/2021 Appointment Infusion Therapy 04/15/2022 Office Visit Hematology and Oncology Poppy Felton PA-C [address] [phone] (Wo rk) 05/30/2022 Office Visit Surgical Oncology Asa Cameron MD [address] [phone] (Wo rk) documented as of this encounter Visit Diagnoses Not on filedocumented in this encounter Discontinued Medications Medication Sig Discontinue Reason Start Date End Date lisdexamfetamine (VYVANSE) Take 1 Cap by Reorder 05/09/2020 06/05/2020 40 mg capsule mouth every morning for 84 days. Daily Max: 40 mg documented as of this encounter Care Teams Irrigation District Manager Relationship Specialty Start Date End Date Filomena Ochoa PA-C PCP - General 03/02/18 2 [place] [phone] documented as of this encounter
--- OUTSIDE RECORDS SUMMARY | 2021-11-29 00:25 | XMS_ITS | Encounter Summary ---
:1970 Author Organization [facility] Address [address] [place] [address] Care Team Providers Name Role Phone Filomena Ochoa PA-C Primary Care Provider [phone] Reason for Visit Reason Comments Telemedicine Video Visit Medication mgr., ankle injur y Encounter Details Date Type Department Care Team Description 05/04/2020 Telemedicine [facility] Filomena Ochoa ankle swelling (Primary Dx); Adult Primary Care - SHAHAB Wolf Foot swelling Hallie [address] [place] [address] [place] [phone] Social History Tobacco Use Types Packs/Day [...] documented as of this encounter Progress Notes Filomena Ochoa PA-C - 05/04/2020 6483 EST TELEMEDICINE VIDEO VISIT Today's visit was provided through telemedicine video conferencing: The location of the patient : pt at home The location of the provider: provider at office The following staff and their role did participate in today's encounter visit: ANETA Menonhe concept of ???Telemedicine?? has been described to the patient.? Patient has been informed of the anticipated benefits and possible risks.? Patient understands the information provided regarding telemedicine, has had the opportunity to ask questions about this information,and all questions have been answered to patient???s satisfaction. Patient consents for the use of telemedicine in his/her medical care and authorizes the transmission of any relevant medical information to providers and their staff involved in patient???s medical or mental health care. S: pt has pain and swelling in her right ankle after hitting it on a rock. She was biking. She did not think that she fx this. She did use ice, elevation and nsaids. She felt better after biking today as the swelling improved. She has discomfort with walking. Pt flies home on Thursday b/c she is at her 2nd home. She had the 1st covid vaccine in [place] and will get the 2nd one in [place]. Pt felt better with her ankle taking ibuprofen 600mg tid, A/P: ankle sprain R/o fx given ecchymosis Edema improved with exercise Xray ankle/foot ordered - If pain returns, then xray locally where pt is located Xu wrap/neoprene support Elevation, heat in Am, ice after use documented in this encounter Plan of Treatment Upcoming Encounters Date Type Specialty Care Team Description 12/16/2021 Appointment Infusion Therapy 04/15/2022 Office Visit Hematology and Oncology Poppy Felton PA-C [address] [phone] (Wo rk) 05/30/2022 Office Visit Surgical Oncology Asa Cameron MD [address] [phone] (Wo rk) documented as of this encounter Visit Diagnoses Diagnosis Right ankle swelling - Primary Effusion of ankle and foot joint Foot swelling Swelling of limb documented in this encounter Care Teams Nuclear Fuels Research Engineer Relationship Specialty Start Date End Date Filomena Ochoa PA-C PCP - General 03/02/18 2 [place] [phone] documented as of this encounter
--- OUTSIDE RECORDS SUMMARY | 2021-11-29 00:25 | XMS_ITS | Encounter Summary ---
:1970 Author Organization [facility] Address [address] [place] [address] Care Team Providers Name Role Phone Filomena Ochoa PA-C Primary Care Provider [phone] Reason for Visit Reason Onset Date Comments Appointment Related 02/08/2020 Encounter Details Date Type Department Care Team Description 02/08/2020 Telephone [facility] Jessi Pleitez MD PhD Appointment Related Hematology & Oncology 111 [facility], [facility] 111 [facility], Level 2 [place], [place] [address] [place] [address] [phone] (Wo rk) Social History Tobacco Use [...] this encounter Miscellaneous Notes Telephone Encounter - Jose Rafael Charles - 02/08/2020 1044 EST Spoke with pt she aware of new inj on 02/09 labs @1 inj at 130 left PAC# elephone Encounter - Brenda Pressley - 02/08/2020 1009 EST Patient states she was to call if she couldn't make 02/08/20 and she can't. Calling care team coordinator scheduler. I can't leave a voicemail, it just goes to busy. Please call to reschedule. documented in this encounter Plan of Treatment Upcoming Encounters Date Type Specialty Care Team Description 12/16/2021 Appointment Infusion Therapy 04/15/2022 Office Visit Hematology and Oncology Poppy Felton PA-C [address] [phone] (Wo rk) 05/30/2022 Office Visit Surgical Oncology Asa Cameron MD [address] [facility] 2 [place], [place] [phone] (Wo rk) documented as of this encounter Visit Diagnoses Not on filedocumented in this encounter Care Teams Manager Bar Relationship Specialty Start Date End Date Filomena Ochoa PA-C PCP - General 03/02/18 2 [place] [phone] documented as of this encounter
--- OUTSIDE RECORDS SUMMARY | 2021-11-29 00:25 | XMS_ITS | Encounter Summary ---
:1970 Author Organization [facility] Address [address] [place] [address] Care Team Providers Name Role Phone Filomena Ochoa PA-C Primary Care Provider [phone] Reason for Visit Reason Onset Date Comments Medications Refill 03/05/2020 Encounter Details Date Type Department Care Team Description 03/05/2020 Refill [facility] Adult Nova Ochoa, Medications Refill Primary Care - Hallie GUDINO [address] [place] [id number] [place] [address] [phone] (Wo rk) Social History Tobacco Use [...] 100 mg Take 1 Tab by mouth 30 Tab 1 03/07/2020 06/21/2020 tablet at bedtime. buPROPion (WELLBUTRIN XL) Take 1 Tab by mouth 30 Tab 1 0 03/07/2020 06/15/2020 300 mg XL daily. tabletIndications: Depression, unspecified depression type buPROPion (WELLBUTRIN XL) Take 1 Tab by mouth 90 Tab 1 0 03/07/2020 03/07/2020 300 mg XL daily. tabletIndications: Depression, unspecified depression type traZODone (DESYREL) 100 mg Take 1 Tab by mouth 90 Tab 1 03/07/2020 03/07/2020 tablet at bedtime. documented in this encounter Miscellaneous Notes Telephone Encounter - Filomena Ochoa PA-C - 03/07/2020 0842 EST Eprescribed. elephone Encounter - Filomena Coker RN - 03/07/2020 0817 EST Patient needing 30 day fill to local pharmacy as mail order did not send her last 90 day refill. Sheis going to contact them as directed by their message. rx pended to pcp. elephone Encounter - Filomena Coker RN - 03/06/2020 1529 EST mychart message sent. elephone Encounter - Filomena Coker RN - 03/06/2020 1527 EST From: Jia Dow To: Office of Fliomena Ochoa PA-C Sent: 03/05/2020 15:43 EST Subject: Medication Renewal Request Refills have been requested for the following medications: traZODone (DESYREL) 100 mg tablet [Filomena Ochoa PA-C] Patient Comment: I usually get these as 90 day prescriptions, which [facility], but they never came (perhaps due to the ), so I am out. So ... just hoping for a one time 30 day in-store berry picker machine operator on these 2 prescriptions ... thank you! buPROPion (WELLBUTRIN XL) 300 mg XL tablet [Filomena Ochoa PA-C] Preferred pharmacy: [facility], [address] [place] [address] documented in this encounter Plan of Treatment Upcoming Encounters Date Type Specialty Care Team Description 12/16/2021 Appointment Infusion Therapy 04/15/2022 Office Visit Hematology and Oncology Poppy Felton PA-C 111 [facility] 2 [place], [place] [phone] (Larissa rk) 05/30/2022 Office Visit Surgical Oncology Asa Cameron MD 111 [facility] 2 [place], [place] [phone] (Wo rk) documented as of this encounter Visit Diagnoses Diagnosis Depression, unspecified depression type documented in this encounter Discontinued Medications Medication Sig Discontinue Reason Start Date End Date traZODone (DESYREL) 100 Take 1 Tab by mouth Reorder 05/18/2019 03/05/2020 mg tablet at bedtime. buPROPion (WELLBUTRIN XL) Take 1 Tab by mouth Reorder 05/18/19 20 03/05/2020 300 mg XL daily. tabletIndications: Depression, unspecified depression type traZODone (DESYREL) 100 Take 1 Tab by mouth Reorder 03/07/2020 03/07/2020 mg tablet at bedtime. buPROPion (WELLBUTRIN XL) Take 1 Tab by mouth Reorder 03/07/19 21 03/07/2020 300 mg XL daily. tabletIndications: Depression, unspecified depression type documented as of this encounter Care Teams Research Archaeologist Relationship Specialty Start Date End Date Filomena Ochoa PA-C PCP - General 03/02/18 2 [place] [phone] documented as of this encounter
--- OUTSIDE RECORDS SUMMARY | 2021-11-29 00:25 | XMS_ITS | Encounter Summary ---
:1970 Author Organization [facility] Address [address] [place] [address] Care Team Providers Name Role Phone Filomena Ochoa PA-C Primary Care Provider [phone] Reason for Visit Reason Comments Follow-up discussion, implant exchange Encounter Details Date Type Department Care Team Description 10/20/2019 Office Visit [facility] Roman Chino Plastic, Reconstructive Cindy Norwood FACS reconstruction (Primary & Cosmetic Surgery - [address]) [place], [place] [address] [address] [address], [address] [place] [address] (Work) [phone] Social History Tobacco Use Types Packs/Day Years [...] Pressure - - Pulse - - Temperature 36.3 ??C (97.3 ??F) 10/20/2019 1339 EDT Respiratory Rate - - Oxygen Saturation - - Inhaled Oxygen Concentration - - Weight - - Height - - Body Mass Index - - documented in [...] documented as of this encounter Progress Notes Roman Chino MD FACS - 10/20/2019 1330 EDT Jia follows up to discuss her breast implants. I last saw her in 2017. She had an MRI in March2018 that indicated her implants were intact. Since I saw her last she has had a recurrence of her breast cancer and been treated with local excision and subsequent radiation she finished in May. Sai previously stopped her hormone therapy due to intolerance but is now back on it and seems to be doing well. We discussed that her implants are textured implants. She has a sternal notch to reconstructed nipple distance of 20.5 cm on the left and 20 cm on the right. She has no ptosis bilaterally. Her reconstructed nipple to inframammary fold distance is 8.5 cm on the left and 8.5 cm on the right. Her left inframammary fold is 1.5 cm lower than the right. Her skin envelope is tight. Her implants displace easily in their pocket. I discussed with Elyssa that she has a good result. 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 We discussed that there are only 850 or so cases in the world out of millions of implants placed and that it is very unlikely to develop ALCL. We discussed signs and symptoms of ALCL. She will need another MRI for implant surveillance 2 years fromlast. I spent 35 minutes with this patient; 30 minutes was spent in counseling and coordination of care asdescribed in the progress note. Ingrid Mercado, RN - 10/20/2019 1330 EDT Examination chaperoned by INGRID MERCADO RN. documented in this encounter Plan of Treatment Upcoming Encounters Date Type Specialty Care Team Description 12/16/2021 Appointment Infusion Therapy 04/15/2022 Office Visit Hematology and Oncology Poppy Felton PA-C [address] [phone] (Wo rk) 05/30/2022 Office Visit Surgical Oncology Asa Cameron MD [address] [phone] (Wo rk) documented as of this encounter Visit Diagnoses Diagnosis S/P breast reconstruction - Primary Breast replaced by other means documented in this encounter Discontinued Medications Medication Sig Discontinue Reason Start Date End Date LORazepam (ATIVAN) 0.5 Take 1 Tab by mouth 2 Therapy completed 02/2410/20/2019 mg tabletIndications: times daily as needed Episodic mood disorder for Anxiety (PMS). ([facility]) (HCC) Use sparingly Daily Max: 1 mg documented as of this encounter Additional Health Concerns Infection Onset Date Last Indicated Resolved Time R/O COVID-19 10/16/2019 10/16/2019 10/21/2019 22:15 EDT documented as of this encounter Care Teams Test Analyst Relationship Specialty Start Date End Date Filomena Ochoa PA-C PCP - General 03/02/[address] [place] [phone] documented as of this encounter
--- OUTSIDE RECORDS SUMMARY | 2021-11-29 00:25 | XMS_ITS | Encounter Summary ---
:1970 Author Organization [facility] Address [address] [place] [address] Care Team Providers Name Role Phone Filomena Ochoa PA-C Primary Care Provider [phone] Reason for Visit Reason Onset Date Comments Results 11/18/2019 5.18.20 DXA Encounter Details Date Type Department Care Team Description 11/16/2019 Telephone [facility] Claudio Wright MD Result s (5.18.20 DXA) Endocrinology - [place] [address] [place], [place] [address] Social History Tobacco Use [...] this encounter Miscellaneous Notes Telephone Encounter - Maye Giles - 11/18/2019 1145 EDT refaxed DXA report elephone Encounter - Alexia Richardson - 11/18/2019 0819 EDT Betsey from [facility] Breast imaging states she did not receive patients 07/10 DXA report. Please re send to [phone] signed by Alexia Richardson at 11/18/2019 8:20 EDTTelephone Encounter - Maye Giles - 11/16/2019 1318 EDT Spoke with Betsey at [facility], faxing 07/11/2019 DXA report, no images to send as our office is an outpatient clinic not radiology. elephone Encounter - Audelia Heaotn - 11/16/2019 0906 EDT Betsey asking that the July 11, 2019 DXA report be faxed to her and that the images be sent to the Film Library at [facility]. Please call with any questions. documented in this encounter Plan of Treatment Upcoming Encounters Date Type Specialty Care Team Description 12/16/2021 Appointment Infusion Therapy 04/15/2022 Office Visit Hematology and Oncology Poppy Felton PA-C [address] [place] [address] [facility] 2 [place], [place] [phone] (Wo rk) 05/30/2022 Office Visit Surgical Oncology Asa Cameron MD 111 [facility], [facility] 2 [place], [place] [phone] (Wo rk) documented as of this encounter Visit Diagnoses Not on filedocumented in this encounter Care Teams Bar Staff Relationship Specialty Start Date End Date Filomena Ochoa PA-C PCP - General 03/02/18 [address] [place] [phone] documented as of this encounter
--- OUTSIDE RECORDS SUMMARY | 2021-11-29 00:25 | XMS_ITS | Encounter Summary ---
:1970 Author Organization [facility] Address [address] [place] [address] Care Team Providers Name Role Phone Filomena Ochoa PA-C Primary Care Provider [phone] Reason for Visit Reason Comments Injections Prior Authorization (Routine/Next Available) - Closed Specialty Diagnoses / Procedures Referred By Contact Refer red To Contact Hematology and Diagnoses Malignant neoplasm of female breast, unspecified estrogen receptor status, unspecified laterality, unspecified site of breast ([facility]) (HCC) Jessi Pleitez MD PhD Ep2 Hem/Onc Oncology [address] [place] [address] [place] [address], Level [address] [place], [place] Fax: [phone] Referral ID Status Reason Start Date Expiration Date Visits Requ ested Visits Authorized [id number] Closed Other 02/06/2020 09/11/2021 15 15 Encounter Details Date Type Department Care Team Description 03/12/2020 Hospital Encounter [facility] Recu rrent cancer of Hematology & Oncology right breast ([facility]) - [facility] (Primary Dx) [address] [place] [address] Social History Tobacco Use Types Packs/Day Years [...] Sign Reading Time Taken Comments Blood Pressure 107/71 03/12/2020 1353 EST Pulse 62 03/12/2020 1353 EST Temperature 35.9 ??C (96.7 ??F) 03/12/2020 1353 EST Respiratory Rate 16 03/12/2020 1353 EST Oxygen Saturation - - Inhaled Oxygen Concentration - - Weight 65.1 kg (143 lb 9.6 oz) 03/12/2020 1353 EST Height - - Body Mass Index 22.66 11/08/2019 0912 EDT documented in this encounter [...] Name: [facility] buPROPion (WELLBUTRIN XL) Take 1 Tab by 30 Tab 1 021 06/15/2020 300 mg XL mouth daily. tabletIndications: Depression, unspecified depression type lisdexamfetamine (VYVANSE) Take 1 Cap by 84 Cap 0 201904/20/2020 40 mg capsule mouth every morning for 84 days. Daily Max: 40 mg ondansetron (ZOFRAN-ODT) 4 Take 1 Tab by 10 Tab 0 201905/12/2021 mg disintegrating mouth every 8 tabletIndications: hours as needed Recurrent cancer of right for Nausea. breast (HCC-CMS) (HCC) traZODone (DESYREL) 100 mg Take 1 Tab by 30 Tab 1 202006/21/2020 tablet mouth at bedtime. documented as of this encounter Discharge Disposition Disposition Code Departure Means Destination Home or Self Care documented in this encounter Progress Notes Norma Choen RN - 03/12/2020 2308 EST Patient presents to clinic today for Fulvestrant injections. Last administered on 02/27/20. Administered as 2 IM injections into bilateral gluteus. Pt tolerated without incident. Patient education: Patient verbally educated on all medications administered today. Patient expressed understanding of education provided and no barriers identified I was supervised by Dr. Jimenez who was present and immediately available in the office suite. Norma Cohen RN documented in this encounter Miscellaneous Notes Addendum Note - Danae Vargas - 03/12/2020 1400 EST Encounter addended by: Danae Vargas on: 03/30/2020 13:31 Actions taken: Charge Capture section accepted documented in this encounter Plan of Treatment Upcoming Encounters Date Type Specialty Care Team Description 12/16/2021 Appointment Infusion Therapy 04/15/2022 Office Visit Hematology and Oncology Poppy Felton, MARINAC [address] [phone] (Wo rk) 05/30/2022 Office Visit Surgical Oncology Asa Cameron MD [address] [phone] (Wo rk) documented as of this encounter Visit Diagnoses Diagnosis Recurrent cancer of right breast (HCC-CM S) (HCC) - Primary documented in this encounter Administered Medications Inactive Administered Medications - up to 3 most recent administrations Medication Order MAR Action Action Date Dose Rate Site fulvestrant (FASLODEX) Given 03/12/2020 14:33 500 mg Right Gluteus injection 500 mg EST Medius 500 mg, intramuscular, NOW X1, 1 dose, On 03/12/20 at 1430, Routine documented in this encounter Orders Medications Ordered That Might Not Have Count Last Ord ered Date First Ordered Date Been Administered fulvestrant (FASLODEX) injection 500 mg 1 03/12/19 21 Appointment Requests Count Last Ordered Date First Ord ered Date ONCBCN INFUSION APPOINTMENT REQUEST - 1 03/12/2020 CALCULATED documented in this encounter Care Teams Quality Control Inspector Relationship Specialty Start Date End Date Filomena Ochoa PA-C PCP - General 03/02/18 [address] [place] [phone] documented as of this encounter
--- OUTSIDE RECORDS SUMMARY | 2021-11-29 00:25 | XMS_ITS | Encounter Summary ---
:1970 Author Organization [facility] Address [address] [place] [address] Care Team Providers Name Role Phone Filomena Ochoa PA-C Primary Care Provider [phone] Encounter Details Date Type Department Care Team Description 03/12/2020 Phlebotomy Only [facility] Blood Doctor, Recurr ent cancer of Hematology & Oncology [facility] Hem Onc [facility] (HCC-[facility]) (Primary [address] [facility] Dx) [place] [address] Social History Tobacco Use Types [...] documented as of this encounter Progress Notes Krystal Barnett MA - 03/12/2020 1330 EST Venipuncture performed per orders. Venipuncture established in LAC. Patient tolerated well. I was supervised by Dr. Jimenez who was present and immediately available in the office suite. KRYSTAL BARNETT MA 03/12/2020 13:55 documented in this encounter Plan of Treatment Upcoming Encounters Date Type Specialty Care Team Description 12/16/2021 Appointment Infusion Therapy 04/15/2022 Office Visit Hematology and Oncology Poppy Felton, PAChuyC [address] [phone] (Wo rk) 05/30/2022 Office Visit Surgical Oncology Asa Cameron MD [address] [phone] (Wo rk) documented as of this encounter Procedures Procedure Name Priority Date/Time Associated Diagnosis Comme nts HEPATIC FUNCTION Routine 03/12/2020 13:52 Recurrent cancer of Results for this PANEL (ALB,ALK EST right breast procedure are in PHOS,ALT,AST,DBIL,T (HCC-CMS) the resu lts OT YOLANDA,TOT PROT) section. documented in this encounter Results HEPATIC FUNCTION PANEL (ALB,ALK PHOS,ALT,AST,DBIL,TOT YOLANDA,TOT PROT) (03/12/2020 13:52 EST) Pathologist Sig nature Total Protein 6.5 6.3 - 8.2 g/dL [facility] Albumin 4.1 3.4 - 4.9 g/dL [facility] Bilirubin, Total <0.5 <1.4 mg/dL [facility] Conjugated Bilirubin 0.0 0.0 - 0.3 mg/dL [facility] Unconjugated Bilirubin 0.2 0.0 - 1.1 mg/dL [facility] Alkaline Phosphatase 53 38 - 126 U/L [facility] ALT 22 <35 U/L [facility] AST 25 15 - 46 U/L [facility] Specimen Blood - Venous blood (substance) Performing Organization Address City/State/ZIP Code Phon e Number [facility] [address] [place] [address] SERVICES documented in this encounter Visit Diagnoses Diagnosis Recurrent cancer of right breast (HCC-CM S) (HCC) - Primary documented in this encounter Care Teams Public Health Sanitarian Technician Relationship Specialty Start Date End Date Filomena Ochoa PA-C PCP - General 03/02/18 [address] [place] [phone] documented as of this encounter
--- OUTSIDE RECORDS SUMMARY | 2021-11-29 00:25 | XMS_ITS | Encounter Summary ---
:1970 Author Organization [facility] Address [address] [place] [address] Care Team Providers Name Role Phone Filomena Ochoa PA-C Primary Care Provider [phone] Reason for Visit Reason Onset Date Comments Medications Refill 04/20/2020 Encounter Details Date Type Department Care Team Description 04/20/2020 Refill [facility] Adult Nova Ochoa, Medications Refill Primary Care - Hallie GUDINO [address] [place] [address] [place], [place] [phone] (Wo rk) Social History Tobacco Use [...] been in contact with No / Unsure 04/02/2020 15:43 EST someone who was confirmed or suspected to [...] Take 1 Cap by 84 Cap 0 202005/09/2020 40 mg capsule mouth every morning for 84 days. Daily Max: 40 mg documented in this encounter Miscellaneous Notes Telephone Encounter - Filomena Ochoa PA-C - 04/25/2020 1402 EST Eprescribed. elephone Encounter - Filomena North RN - 04/25/2020 0911 EST To PCP for script consideration To [facility] for my chart message about scheduling F/U elephone Encounter - Cristiane Bautista - 04/24/2020 1028 EST Requested Prescriptions Pending Prescriptions Disp Refills ??? lisdexamfetamine (VYVANSE) 40 mg capsule 84 Cap 0 Sig: Take 1 Cap by mouth every morning for 84 days. Daily Max: 40 mg [facility] - [place], [place] - [address] Confirmed Pharmacy? Yes Patient out of medication? Unknown Last Refill Date: 02.09.20 Refills left? (explain exceptions requiring early refill) No Recent Visits Date Type Provider Dept 08/22/19 Office Visit Filomena Ochoa PA-C [place] [facility] 12/24/18 Office Visit Dustin Fitzpatrick MD [place] [facility] Showing recent visits within past 540 days with a meds authorizing provider and meeting all other requirements Future Appointments No visits were found meeting these conditions. Showing future appointments within next 150 days with a meds authorizing provider and meeting all other requirements Future appointment: Other - pt CX'd her last appt Jacques on 12.23.19, My Chart msg sent Cristiane Bautista 04/24/2020 10:30 Telephone Encounter - Cristiane Bautista - 04/24/2020 1028 EST From: Jia Dow To: Office of Filomena Ochoa PA-C Sent: 04/20/2020 10:19 EST Subject: Medication Renewal Request Refills have been requested for the following medications: lisdexamfetamine (VYVANSE) 40 mg capsule [Filomena Ochoa PA-C] Patient Comment: Note that the only option I'm given is picker tender helper at pharmacy, but this would come through home delivery, 3 month supply. Thanks!! Preferred pharmacy: [facility] - [address] documented in this encounter Plan of Treatment Upcoming Encounters Date Type Specialty Care Team Description 12/16/2021 Appointment Infusion Therapy 04/15/2022 Office Visit Hematology and Oncology Poppy Felotn PA-C 111 [facility], [facility] 2 [place], [place] [phone] (Larissa felder) 05/30/2022 Office Visit Surgical Oncology Asa Cameron MD 111 [facility], Level 2 [place], [place] [phone] (Larissa felder) documented as of this encounter Visit Diagnoses Not on filedocumented in this encounter Discontinued Medications Medication Sig Discontinue Reason Start Date End Date lisdexamfetamine (VYVANSE) Take 1 Cap by Reorder 02/09/2020 04/20/2020 40 mg capsule mouth every morning for 84 days. Daily Max: 40 mg documented as of this encounter Care Teams Teleradiologist Relationship Specialty Start Date End Date Filomena Ochoa PA-C PCP - General 03/02/[address] [place] [phone] documented as of this encounter
--- OUTSIDE RECORDS SUMMARY | 2021-11-29 00:25 | XMS_ITS | Encounter Summary ---
:1970 Author Organization [facility] Address [address] [place] [address] Care Team Providers Name Role Phone Filomena Ochoa PA-C Primary Care Provider [phone] Encounter Details Date Type Department Care Team Description 12/19/2019 Phlebotomy Only [facility] [address] [place], Brooke herrera, unspecified COVID TESTING Phlebotomy type [address] [place] [address] Social History Tobacco Use Types Packs/Day Years [...] and Oncology Poppy Felton PA-C [address] [phone] (Wo rk) 05/30/2022 Office Visit Surgical Oncology Asa Cameron MD [address] [phone] (Wo rk) documented as of this encounter Procedures Procedure Name Priority Date/Time Associated Comments Diagnosis COMPLETE BLOOD COUNT Routine 12/19/2019 15:17 Fatigue, Res ults for this EDT unspecified type procedure a re in the results section. T3, TOTAL Routine 12/19/2019 15:16 Fatigue, Results for this EDT unspecified type procedure a re in the results section. TSH Routine 12/19/2019 15:16 Fatigue, Results for this EDT unspecified type procedure a re in the results section. T4 FREE Routine 12/19/2019 15:16 Fatigue, Results for this EDT unspecified type procedure a re in the results section. COMPREHENSIVE Routine 12/19/2019 15:16 Fatigue, Results fo r this METABOLIC PANEL (CMP) EDT unspecified type pr ocedure are in the results section. documented in this encounter Results (ABNORMAL) COMPLETE BLOOD COUNT (12/19/2019 15:17 EDT) Pathologist Sig nature WBC 6.41 4.00 - 12.40 K/cmm [facility] RBC 4.36 3.86 - 5.04 M/cmm [facility] Hemoglobin 13.3 11.6 - 15.2 gm/dL [facility] HCT 40.4 34.9 - 44.4 % [facility] MCV 93 81 - 98 fl [facility] MCH 30.5 26.7 - 33.3 pg [facility] MCHC 32.9 32.1 - 35.9 gm/dL [facility] RDW-CV 12.7 <14.7 % [facility] RDW-SD 43.5 <50.4 fl [facility] PLT 247 141 - 377 K/cmm [facility] MPV 8.9 (L) 9.5 - 12.7 [facility]ORY SERVICES Specimen Blood - Venous blood (substance) Performing Organization Address [facility]/ZIP Code Phon e Number [facility] [address] [place] [phone] SERVICES TSH (12/19/2019 15:16 EDT) Pathologist Sig nature TSH 2.78 0.47 - 4.68 uIU/mL [facility] Specimen Blood - Venous blood (substance) Narrative [facility] - 12/19/2019 18:40 EDT The results of this assay can be falsely lowered due to the consumption of Biotin. Performing Organization Address City/[facility] Code Phon e Number [facility] [address] [place] [address] SERVICES T3, TOTAL (12/19/2019 15:16 EDT) Pathologist Sig nature T3, Total 105 97 - 169 ng/dL [facility] ORY SERVICES Specimen Blood - Venous blood (substance) Performing Organization Address [facility] Phon e Number [facility] [address] [place] [address] SERVICES T4 FREE (12/19/2019 15:16 EDT) Pathologist Sig nature T4, Free 1.0 0.8 - 2.2 ng/dL [facility] T[facility] SERVICES Specimen Blood - Venous blood (substance) Performing Organization Address [facility]/ZIP [facility] Phon e Number [facility] [address] [place] [phone] SERVICES COMPREHENSIVE METABOLIC PANEL (CMP) (12/19/2019 15:16 EDT) Sodium 139 136 - 145 [facility] mEq/L [facility] Potassium 4.4 3.5 - 5.0 [facility] mEq/L [facility] Chloride 103 96 - 110 [facility] mEq/L [facility] CO2 Total 27 22 - 32 mEq/L [facility] Glucose 82 70 - 100 [facility] mg/dL [facility] BUN 19 10 - 26 mg/dL [facility] Creatinine 0.84 0.52 - 1.04 [facility] mg/dL [facility] eGFR 83Comment: eGFR >60 [facility] calculated using mL/min/1.73m2 CENTER LAB[facility] CKD-EPI equation SERVICES for non- Americans. Multiply eGFR by 1.16 for patients. Total Protein 6.4 6.3 - 8.2 [facility] g/dL [facility] Albumin 3.9 3.4 - 4.9 [facility] g/dL [facility] Alkaline 63 38 - 126 U/L [facility] Phosphatase [facility] AST 34 15 - 46 U/L [facility] ALT 26 <35 U/L [facility] Bilirubin, Total <0.5 <1.4 mg/dL [facility] Calcium 9.7 8.5 - 10.5 [facility] mg/dL [facility] Calculated Calcium 9.8 8.5 - 10.5 [facility] mg/dL [facility] Specimen Blood - Venous blood (substance) Performing Organization Address City/State/ZIP Code Phon e Number [facility] [address] [place] [address] SERVICES documented in this encounter Visit Diagnoses Diagnosis Fatigue, unspecified type documented in this encounter Care Teams Nailer Hand Relationship Specialty Start Date End Date Filomena Ochoa PA-C PCP - General 03/02/18 [address] [place] [phone] documented as of this encounter
--- OUTSIDE RECORDS SUMMARY | 2021-11-29 00:25 | XMS_ITS | Encounter Summary ---
:1970 Author Organization [facility] Address [address] [place] [address] Care Team Providers Name Role Phone Filomena Ochoa PA-C Primary Care Provider [phone] Reason for Visit Reason Onset Date Comments Medications Refill 01/23/2020 Encounter Details Date Type Department Care Team Description 01/23/2020 Refill [facility] Adult Nova Ochoa, Medications Refill Primary Care - Hallie GUDINO [address] [place] [id number] [place] [address] [phone] (Wo rk) Social History Tobacco Use [...] Take 1 Cap by 84 Cap 0 201902/09/2020 40 mg capsule mouth every morning for 84 days. Daily Max: 40 mg documented in this encounter Miscellaneous Notes Telephone Encounter - Filomena Ochoa PA-C - 01/24/2020 1627 EST Eprescribed. elephone Encounter - Filomena Yusuf RN - 01/24/2020 1618 EST Requested Prescriptions Pending Prescriptions Disp Refills ??? lisdexamfetamine (VYVANSE) 40 mg capsule 84 Cap 0 Sig: Take 1 Cap by mouth every morning for 84 days. Daily Max: 40 mg [id number] - [place], [place] - [phone] Confirmed Pharmacy? Yes Patient out of medication? No Last Refill Date: 11/04/19 Refills left? (explain exceptions requiring early refill) No Recent Visits Date Type Provider Dept 12/23/19 Appointment Filomena Ochoa PA-C [facility] 08/22/19 Office Visit Filomena Ochoa PA-C [facility] 12/24/18 Office Visit Dustin Fitzpatrick MD [facility] 10/15/18 Office Visit Jia Minor PA-C [facility] Showing recent visits within past 540 days with a meds authorizing provider and meeting all other requirements Future Appointments No visits were found meeting these conditions. Showing future appointments within next 150 days with a meds authorizing provider and meeting all other requirements Future appointment: Other [facility] patient seen during down time unsure recommended F/U time FILOMENA YUSUF RN 01/24/2020 16:18 elephone Encounter - Filomena Yusuf RN - 01/24/2020 1616 EST From: Jia Dow To: Office of Filomena Ochoa PA-C Sent: 01/23/2020 14:32 EST Subject: Medication Renewal Request Refills have been requested for the following medications: lisdexamfetamine (VYVANSE) 40 mg capsule [Filomena Ochoa PA-C] Patient Comment: Note that delivery method in [facility] is only giving me the option to select crop picker at pharmacy, however I use a home delivery pharmac y. The correct Pharmacy is displayed ([facility]), but I will not be picking up there. Also, please ensure that the prescription is 3 months, us usual. Thank you so much! Preferred pharmacy: [facility] - [address] documented in this encounter Plan of Treatment Upcoming Encounters Date Type Specialty Care Team Description 12/16/2021 Appointment Infusion Therapy 04/15/2022 Office Visit Hematology and Oncology Poppy Felton PA-C [address] [facility] [address] [place], [place] [phone] (Wo [place]) 05/30/2022 Office Visit Surgical Oncology Asa Cameron MD [address] [facility] [address] [place], [place] [phone] (Wo rk) documented as of this encounter Visit Diagnoses Not on filedocumented in this encounter Discontinued Medications Medication Sig Discontinue Reason Start Date End Date lisdexamfetamine (VYVANSE) Take 1 Cap by Reorder 11/04/2019 01/23/2020 40 mg capsule mouth every morning for 84 days. Daily Max: 40 mg documented as of this encounter Care Teams Epic Beacon Analyst Relationship Specialty Start Date End Date Filomena Ochao PA-C PCP - General 03/02/18 2 [place] [phone] documented as of this encounter
--- OUTSIDE RECORDS SUMMARY | 2021-11-29 00:25 | XMS_ITS | Encounter Summary ---
:1970 Author Organization [facility] Address [address] [place] [address] Care Team Providers Name Role Phone Filomena Ochoa PA-C Primary Care Provider [phone] Reason for Visit Reason Comments Follow-up Encounter Details Date Type Department Care Team Description 04/02/2020 Office Visit [facility] Asa Cameron MD Routine cancer follow-up visit (Primary Dx); Surgical Oncology - [address] [place] [address] al history of breast cancer [facility] [address] [place] [address] [place], [place] [address] (Wo rk) Social History Tobacco [...] encounter Progress Notes Asa Cameron MD - 04/02/2020 1547 EST Jia Dow is a 49-year-old woman seen in follow-up for history of breast cancer. Patient developed a right breast cancer in 2011 and opted to have bilateral total mastectomies with implant reconstructions. She had sentinel node biopsy on the right done at that time. Her tumor stage was T1CN0, it was a low- grade tumor and she was put on tamoxifen which she was on for about 4 and half years. Aftercoming off of tamoxifen she had noticed a small nodule that very slowly grew in the skin this was subsequently biopsied and found to be a recurrence of cancer. Metastatic work-up showed no evidence of distant disease. She underwent excision of this area in March 2019. We had clear margins on this area. She got some radiation to that local area. And after several discussions she has begun adjuvant treatment with Faslodex. So far she is tolerating that relatively well. Patient has no other complaints. On clinical exam the patient is in no acute distress, there is no scleral icterus, there is no palpable cervical or supraclavicular lymph nodes. There is no nodules in the thyroid gland, no carotid bruits or JVD were noted. Her lungs are clear to auscultation, her heart is a regular rate and rhythm there is no S3-S4 murmurs noted. Breast exam reveals bilateral mastectomies with implant reconstructions. The excision site is in the upper inner aspect of her mastectomy site on the right. Palpation of the right side reveals no palpable abnormality suspicious for recurrence, there is no palpable lymph nodes in the right axilla. On the left side there is no palpable abnormality suspicious for recurrence, there is no palpable lymph nodes in the left axilla. There is no abdominal masses, no hepatosplenomegaly was noted. Ultrasound evaluation of the right mastectomy site shows no evidence of recurrent disease the implant was a good position there are no abnormal lymph nodes seen in the internal mammary or axillary region. On the left side the implant was a good position, there is no evidence of recurrent disease in the mastectomy site, there was no abnormal lymph nodes in the internal mammary or axillary region. Impression patient has no evidence of recurrence. We will plan to follow-up with myself in 6 months. documented in this encounter Plan of Treatment Upcoming Encounters Date Type Specialty Care Team Description 12/16/2021 Appointment Infusion Therapy 04/15/2022 Office Visit Hematology and Oncology Poppy Felton PA-C [address] [phone] (Wo rk) 05/30/2022 Office Visit Surgical Oncology Asa Cameron MD [address] [phone] (Wo rk) documented as of this encounter Procedures Procedure Name Priority Date/Time Associated Diagnosis Comme nts ORDERS - SCANNED 05/29/2020 10:26 EDT documented in this encounter Visit Diagnoses Diagnosis Routine cancer follow-up visit - Primary Other follow-up examination Personal history of breast cancer Personal history of malignant neoplasm o f breast documented in this encounter Orders Admission Count Last Ordered Date First Ordered Date ORDERS - SCANNED 1 05/29/2020 documented in this encounter Care Teams Curriculum Writer Relationship Specialty Start Date End Date Filomena Ochoa PA-C PCP - General 03/02/[address] [place] [phone] documented as of this encounter
--- OUTSIDE RECORDS SUMMARY | 2021-11-29 00:25 | XMS_ITS | Encounter Summary ---
:1970 Author Organization [facility] Address [address] [place] [address] Care Team Providers Name Role Phone Filomena Ochoa PA-C Primary Care Provider [phone] Reason for Visit Reason Comments Follow-up Encounter Details Date Type Department Care Team Description 03/08/2020 Telemedicine [facility] Jessi Pleitez MD [facility] of Hematology & PhD right breast Oncology - [address] ([facility]) (Primary [address] Dx) [address] [place] [address] [address], [place] [address] (Wo rk) Social History Tobacco [...] encounter Progress Notes Jessi Pleitez MD - 03/08/2020 0919 EST REASON FOR OFFICE VISIT: Discussion of side [...] dermis, 4mm, thewell differentiated, ER positive 95%, DC +95%, HER-2 0 by IHC C. Staging [...] mastectomy specimen. 0/4 lymph nodes; ER+ >90%, DC+ >??90%; HER-2 2+ by immunohistochemistry and negative by FISH. Oncotype DX score 20(intermediate range). ?? b. Tamoxifen 08/2011 until Mar 2016 with a small break to try toremefine, but then back to tamoxifen which she took approximately 4/ /2 years 3. Family history of breast cancer, genetic testing negative for BRCA mutation 4. Gynecologic history: Perimenopausal January 2020 5. Bone Density April 2019: low end of normal spine and hips 6. Other chronic health problems include ADHD, depression??and anxiety. ?? SUBJECTIVE: Ms Dow is receiving a televideo consultation today to discuss side effects after starting fulfestrant in January. The first injection was painful. She also experienced some nausea. The 2nd injecton was better. She took zofran right before. She has not had hot flashes. She has had constipation. She has also noted more trouble sleeping. ROS: A 10 point review of systems was obtained. Other than described in the subjective she has no medical concerns or issues. Medications Prior to Today's Visit Medication Sig ??? buPROPion (WELLBUTRIN XL) 300 mg XL tablet Take 1 Tab by mouth daily. ??? fluticasone propionate (FLONASE) 50 mcg/actuation nasal spray Instill 100 mcg into both nostrilsas needed. ??? lisdexamfetamine (VYVANSE) 40 mg capsule Take 1 Cap by mouth every morning for 84 days. Daily Max: 40 mg ??? melatonin 10 mg tablet Take by mouth at bedtime. ??? ondansetron (ZOFRAN-ODT) 4 mg disintegrating tablet Take 1 Tab by mouth every 8 hours as needed for Nausea. ??? traZODone (DESYREL) 100 mg tablet Take 1 Tab by mouth at bedtime. ??? UNABLE TO FIND as needed. Med Name: [facility]Administ[facility] Medications Prior to Visit Medication ??? ondansetron (ZOFRAN-ODT) disintegrating tablet 4 mg Social History Tobacco Use ??? Smoking status: Never Smoker ??? Smokeless tobacco: Never Used Substance Use Topics ??? Alcohol use: Yes Alcohol/week: 2.0 standard drinks Types: 2 Standard drinks or equivalent per week Frequency: 2-3 times a week Drinks per session: 1 or 2 Binge frequency: Never Objective: There were no vitals taken for this visit. Estimated body mass index is 22.69 kg/m?? as calculated from the following: Height as of 11/08/19: 169.5 cm (66.75). Weight as of 02/27/20: 65.2 kg (143 lb 12.8 oz). ECOG Performance Status: 0 General: Comfortable, cooperative and in no apparent distress NEURO: Alert and oriented x 3; Grossly neurologically intact DIAGNOSTIC DATA No visits with results within 1 Day(s) from this visit. Latest known visit with results is: Phlebotomy Only on 02/27/2020 Component Date Value Ref Range Status ??? Total Protein 02/27/2020 6.5 6.3 - 8.2 g/dL Final ??? Albumin 02/27/2020 3.9 3.4 - 4.9 g/dL Final ? ? Bilirubin, Total 02/27/2020 <0.5 <1.4 mg/dL Final ??? Conjugated Bilirubin 02/27/2020 0.0 0.0 - 0.3 mg/dL Final ??? Unconjugated Bilirubin 02/27/2020 0.2 0.0 - 1.1 mg/dL Final ??? Alkaline Phosphatase 02/27/2020 54 38 - 126 U/L Final ? ? ALT 02/27/2020 25 <35 U/L Final ??? 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 She was noted to have multifocal invasive carcinoma. She received bilateral mastectomies and a right sentinel lymph node evaluation as well as bilateralimplant reconstruction.??Her Oncotype DX score??was??20 and she did not receive chemotherapy. Anti estrogen options were tried however side effects were intolerable. She had a local recurrence a year ago. She retried tamoxifen but again experienced side effects. She proceeded with a trial of fulvestrant in January. She is experiencing some constipation and sleep disruption but is otherwise tolerating it. She will continue to see Dr Cameron. ?? PLAN: 1. Fulvestrant Mar 12 and then monthly 2. Next bone density scan would be due April 2021 3. Consider initiating zoledronic acid. We have asked the patient to check in with her dentist 4. Continued follow up with Dr Cameron 5. Follow-up return April when she is due for an injection ?? TELEMEDICINE VIDEO VISIT ?? Today's visit was provided through telemedicine video conferencing: ?? I have reviewed the appropriateness of using video technology with the patient with regards to today's visit. The location of the patient : Home ?? The location of the provider: Office ?? The following staff and their role did participate in today's encounter visit: MD Jessi Posada MD 03/06/2020 10:10 documented in this encounter Plan of Treatment Upcoming Encounters Date Type Specialty Care Team Description 12/16/2021 Appointment Infusion Therapy 04/15/2022 Office Visit Hematology and Oncology Poppy Felton PA-C [address] [phone] (Wo rk) 05/30/2022 Office Visit Surgical Oncology Asa Cameron MD [address] [phone] (Wo rk) documented as of this encounter Visit Diagnoses Diagnosis Recurrent cancer of right breast (HCC-CM S) (HCC) - Primary documented in this encounter Orders Appointment Requests Count Last Ordered Date First Ord ered Date ONCBCN CLINIC APPOINTMENT REQUEST 1 03/07/2020 documented in this encounter Care Teams Lidar Scientist Relationship Specialty Start Date End Date Filomena Ochoa PA-C PCP - General 03/02/18 2 [place] [phone] documented as of this encounter
--- OUTSIDE RECORDS SUMMARY | 2021-11-29 00:25 | XMS_ITS | Encounter Summary ---
:1970 Author Organization [facility] Address [address] [place] [address] Care Team Providers Name Role Phone Filomena Ochoa PA-C Primary Care Provider [phone] Encounter Details Date Type Department Care Team Description 10/20/2019 Travel Social History Tobacco Use Types Packs/Day [...] Hematology and Oncology Poppy Felton PA-C [address] [phone] (Wo rk) 05/30/2022 Office Visit Surgical Oncology Asa Cameron MD [address] [phone] (Wo rk) documented as of this encounter Visit Diagnoses Not on filedocumented in this encounter Additional Health Concerns Infection Onset Date Last Indicated Resolved Time R/O COVID-19 10/16/2019 10/16/2019 10/21/2019 22:15 EDT documented as of this encounter Care Teams Data Consultant Relationship Specialty Start Date End Date Filomena Ochoa PA-C PCP - General 03/02/18 [address] [place] [phone] documented as of this encounter
--- OUTSIDE RECORDS SUMMARY | 2021-11-29 00:25 | XMS_ITS | Encounter Summary ---
:1970 Author Organization [facility] Address [address] [place] [address] Care Team Providers Name Role Phone Filomena Ochoa PA-C Primary Care Provider [phone] Encounter Details Date Type Department Care Team Description 05/04/2020 Orders Only [facility] Cancer Center Nikky Camacho RN Recurr ent cancer of Hematology & Oncology [facility] ([facility]) [facility] [place] (Primary Dx) [address] [place] [address] Social History Tobacco Use Types [...] Hematology and Oncology Poppy Felton, PAChuyC [address] [phone] (Wo rk) 05/30/2022 Office Visit Surgical Oncology Asa Cameron MD [address] [phone] (Wo rk) documented as of this encounter Results (ABNORMAL) COMPLETE BLOOD COUNT AND DIFFERENTIAL (05/09/2020 14:38 EDT) WBC 8.23 4.00 - 12.40 [facility] LABORATORY SERVICES RBC 5.00 3.86 - 5.04 [facility] LABORATORY SERVICES Hemoglobin 15.4 (H) 11.6 - 15.2 [facility] gm/dL LABORATORY SERVICES HCT 45.9 (H) 34.9 - 44.4 % [facility] LABORATORY SERVICES MCV 92 81 - [address] [facility] LABORATORY SERVICES MCH 30.8 26.7 - 33.[address] [facility] LABORATORY SERVICES MCHC 33.6 32.1 - 35.9 [facility] gm/dL LABORATORY SERVICES RDW-CV 12.3 <14.7 % [facility] LABORATORY SERVICES RDW-SD 41.3 <50.[address] [facility] LABORATORY SERVICES PLT [phone] /[facility] LABORATORY SERVICES MPV 8.7 (L) 9.5 - 12.[address] [facility] LABORATORY SERVICES Neutrophils 56.6 % [facility] LABORATORY SERVICES Lymphocytes 33.7 % [facility] LABORATORY SERVICES Monocytes 7.8 % [facility] LABORATORY SERVICES Eosinophils 0.9 % [facility] LABORATORY SERVICES Basophils 0.6 % [facility] LABORATORY SERVICES Immature Grans 0.4 % [facility] LABORATORY SERVICES Absolute Neutrophils 4.67 2.20 - 8.85 [facility] LABORATORY SERVICES Absolute Lymphocytes 2.77 1.09 - 3.30 [facility] LABORATORY SERVICES Absolute Monocytes 0.64 0.10 - 0.80 [facility] LABORATORY SERVICES Absolute Eosinophils 0.07 0.03 - 0.61 [facility] LABORATORY SERVICES Absolute Basophils 0.05 0.01 - 0.11 [facility] LABORATORY SERVICES Absolute Immature 0.03 0.00 - 0.06 [facility] LABORATORY SERVICES Type of Differential: Auto [facility] LABORATORY SERVICES Specimen Blood - Venous blood (substance) Performing Organization Address City/State/ZIP Code Phon e Number [facility] LABORATORY [address] [place] [address] SERVICES (ABNORMAL) COMPREHENSIVE METABOLIC PANEL (ONCOLOGY USE ONLY-INC MG) (05/09/2020 14:38 EDT) Sodium 136 136 - 145 [facility] mEq/L [facility] Potassium 4.2 3.5 - 5.0 [facility] mEq/L [facility] Chloride 99 96 - 110 [facility] mEq/L [facility] CO2 Total 27 22 - 32 mEq/L [facility] LABORATORY SERVICES Glucose 100 70 - 100 [facility] mg/dL [facility] BUN 33 (H) 10 - 26 mg/dL [facility] LABORATORY SERVICES Creatinine 0.81 0.52 - 1.04 [facility] mg/dL [facility] eGFR 87Comment: eGFR >60 [facility] calculated using mL/min/1.73m2 [facility] CKD-EPI equation SERVICES for non- Americans. Multiply eGFR by 1.16 for patients. Total Protein 8.0 6.3 - 8.2 [facility] g/dL [facility] Albumin 4.8 3.4 - 4.9 [facility] g/dL [facility] Alkaline 65 38 - 126 U/L [facility] Phosphatase [facility] AST 25 15 - 46 U/L [facility] LABORATORY SERVICES ALT 22 <35 U/L [facility] LABORATORY SERVICES Bilirubin, Total <0.5 <1.4 mg/dL [facility] LABORATORY SERVICES Calcium 10.5 8.5 - 10.5 [facility] MEDICAL mg/dL [facility] LABORAT[facility] SERVICES Calculated Calcium 9.9 8.5 - 10.5 [facility] MEDICAL mg/dL [facility] Magnesium 2.2 1.7 - 2.8 [facility] MEDICAL mg/dL [facility] Specimen Blood - Venous blood (substance) Performing Organization Address City/State/ZIP Code Phon e Number [facility] LABORATORY [address] [place] [address] SERVICES documented in this encounter Visit Diagnoses Diagnosis Recurrent cancer of right breast (HCC-CM S) (HCC) - Primary documented in this encounter Care Teams Transportation Escort Relationship Specialty Start Date End Date Filomean Ochoa PA-C PCP - General 03/02/18 [address] [place] [phone] documented as of this encounter
--- OUTSIDE RECORDS SUMMARY | 2021-11-29 00:25 | XMS_ITS | Encounter Summary ---
:1970 Author Organization [facility] Address [address] [place] [address] Care Team Providers Name Role Phone Filomena Ochoa PA-C Primary Care Provider Reason for Visit Reason Onset Date Comments Ankle Injury 05/02/2020 Encounter Details Date Type Department Care Team Description 05/02/2020 Telephone [facility] Adult Nova Ochoa, Ankle Injury Primary Care - Hallie GUDINO [address] [place] [address] [place], [place] [phone] (Wo rk) Social History Tobacco Use [...] encounter Miscellaneous Notes Telephone Encounter - Filomena Coker RN - 05/02/2020 1707 EST Spoke with patient, advised directions from pcp. She is currently in [place] and unable to come in herefor an appointment. Advised if swelling does not go down, she may need to go to a local urgent care for an xray and evaluation. She is going to try and rest, use heat/ice, and ibuprofen for a few days. elephone Encounter - Filomena Ochoa PA-C - 05/02/2020 1507 EST I would suggest ibuprofen 400-800mg q6-8hrs with food as needed for pain/inflammation. She may use heat when she first wakes up, ice after walking around or during the day. Recommend evaluation to see if she needs PT or if lots of swelling and ecchymosis, she may need xray. Can't tell over phone. I'm glad she can weight bare at this time without pain. That is reassuring. elephone Encounter - Lucero Ly RN - 05/02/2020 1425 EST Patient injured ankle mountain biking and slipped on a rock. Came down on ankle as it turned. No impact Didn't think broke anything. Had to finish the ride. Ankle is so swollen. Can put weight on it. Patient took ibuprofen for several days. No longer having constant pain. Patient asking how long should continue the ibuprofen? Is it better to take aspirin? Patient has been elevating, compression and icing ankle. For the first day took a lot of ibuprofen. Patient no longer having pain at rest. Patient has pressure from swelling. Toes are fat, everything is fat and swollen. Pain is not bother some.unless she walks on it. Encouraged patient to continue to elevate, rest ice and compression until appointment with PCP on Thursday. Should patient continue ibuprofen or aspirin? Any additional recommendations? elephone Encounter - Elida Negrete - 05/02/2020 1027 EST Reason for Call: Ankle Injury Summary/Symptoms: Patient reports she sprained her ankle Thursday and the swelling and pain is not getting any better wondering what else she can do for it. She has been taking Ibuprofen and Tylenol and would like to know how long she should be doing that. Patient is in [place] and has a video visit scheduled with Filomena Thursday05/04/20 Onset and Duration: 4 days Does the patient have a computer, laptop or smart phone with high speed & video capability? Yes If so, would they be interested in doing a video visit via Zoom? Yes Appointment Offered? No Elida Negrete 05/02/2020 10:28 documented in this encounter Plan of Treatment Upcoming Encounters Date Type Specialty Care Team Description 12/16/2021 Appointment Infusion Therapy 04/15/2022 Office Visit Hematology and Oncology Poppy Felton PA-C [address] [phone] (Wo rk) 05/30/2022 Office Visit Surgical Oncology Asa Cameron MD [address] [phone] (Wo rk) documented as of this encounter Visit Diagnoses Not on filedocumented in this encounter Care Teams Coconut Boiler Relationship Specialty Start Date End Date Filomena Ochoa PA-C PCP - General 03/02/18 2 [place] [phone] documented as of this encounter
--- OUTSIDE RECORDS SUMMARY | 2021-11-29 00:25 | XMS_ITS | Encounter Summary ---
:1970 Author Organization [facility] Address [address] [place] [address] Care Team Providers Name Role Phone Filomena Ochoa PA-C Primary Care Provider [phone] Reason for Referral Prior Authorization (Routine/Next Available) - Closed Specialty Diagnoses / Procedures Referred By Contact Refer red To Contact Hematology and Diagnoses Malignant neoplasm of female breast, unspecified estrogen receptor status, unspecified laterality, unspecified site of breast ([facility]) ([facility]) Jessi Pleitez MD PhD Ep2 Hem/Onc Oncology [address] [place] [address] [address] [place], [place] [phone] [place] [address], [address] 2 [place], [place] Fax: [phone] Referral ID Status Reason Start Date Expiration Date Visits Requ ested Visits Authorized [id number] Closed Other 02/06/2020 09/11/2021 15 15 Question Answer Medication to be Prior Authorized: faslodex [facility] Precertification Request f or Medications 02/01/2020 URGENT: No Medication Administration: SQ Inj, Clini c Patient Name: Jia Dow Patient : [id number] Ordering MD: vick Nurse: yoni Phone: [phone] Is this a dosage change, renewal or a ne w medication? New Med Medication Start Date & Number of Cycles : Start next week PT BSA: There is no height or weight on file to calculate BSA. What is the reason for taking this medic ation? Breast cancer Is this an on label usage of this medica tion? Yes What is the patient's current drug regim en? Toremifene Similar drugs patient has been on and fa iled? Tamoxifen, Aromatase inhibitor, toremifene- didn't tolerate due to side effects Please Prior Auth Medications Listed bel ow: faslodex IM: Initial: 500 mg on days 1, 15, and 29; Maintenance: 500 mg once monthly Encounter Details Date Type Department Care Team Description 02/01/2020 Orders Only [facility] Cancer Center [facility], Malignant neoplasm of Hematology & Oncology - LAMAR Morales fem quinn breast, Main [place] unspecified estrogen [address] receptor status, [place] [address] unspecified laterality, unspecified sit e of breast ([facility] ) (Primary Dx) Social History Tobacco Use Types Packs/Day Years [...] encounter Progress Notes Carmen Overton RN - 02/01/2020 1225 EST re documented in this encounter Plan of Treatment Upcoming Encounters Date Type Specialty Care Team Description 12/16/2021 Appointment Infusion Therapy 04/15/2022 Office Visit Hematology and Oncology Poppy Felton PA-C [address] [phone] (Wo rk) 05/30/2022 Office Visit Surgical Oncology Asa Cameron MD [address] [phone] (Wo rk) Scheduled Referrals Name Type Priority Associated Order Schedule Diagnoses AMB MEDICATION PRIOR Outpatient Referral Routine Malignant elio plasm Expected: AUTHORIZATION of female breast, 0 unspecified (Approximate) estrogen receptor status, unspecified laterality, unspecified site of breast (HCC-CMS) documented as of this encounter Visit Diagnoses Diagnosis Malignant neoplasm of female breast, uns pecified estrogen receptor status, unspecified laterality, unspecified site of breast (HCC-CMS) (HCC) - Primary documented in this encounter Care Teams Forming Acid Dumper Relationship Specialty Start Date End Date Filomena Ochoa PA-C PCP - General 03/02/18 2 [place] [phone] documented as of this encounter
--- OUTSIDE RECORDS SUMMARY | 2021-11-29 00:25 | XMS_ITS | Encounter Summary ---
:1970 Author Organization [facility] Address [address] [place] [address] Care Team Providers Name Role Phone Filomena Ochoa PA-C Primary Care Provider [phone] Reason for Visit Reason Comments Injections Encounter Details Date Type Department Care Team Description 04/06/2020 Hospital Encounter [facility] Cancer Center Recu rrent cancer of Hematology & Oncology right breast (HCC-CMS) - Main [place] [address] [place] [address] Social History Tobacco Use Types [...] Sign Reading Time Taken Comments Blood Pressure 132/65 04/06/2020 1531 EST Pulse 71 04/06/2020 1531 EST Temperature 36.7 ??C (98 ??F) 04/06/2020 1531 EST Respiratory Rate 16 04/06/2020 1531 EST Oxygen Saturation 100% 04/06/2020 1531 EST Inhaled Oxygen Concentration - - Weight 64.2 kg (141 lb 8 oz) 04/06/2020 1531 EST Height - - Body Mass Index 22.33 11/08/2019 0912 EDT documented in this encounter [...] Care documented in this encounter Progress Notes Olivia Cueto RN - 04/06/2020 1530 EST Jia presents today for Faslodex injections. She is feeling well today. LFTs drawn and sent to thelab. Cycle 3 day 1 Fulvestrant 500 mg given in 2 - 250 mg IM injections left and right upper outer quadrant gluteal muscles without incident. Gauze and tape applied to both sites. I was supervised by Dr Bhatt who was present and immediately available in the office suite. OLIVIA CUETO RN 04/06/2020 15:52 documented in this encounter Miscellaneous Notes Addendum Note - Juan Joyce - 04/06/2020 1530 EST Encounter addended by: Juan Joyce on: 04/24/2020 13:15 Actions taken: Charge Capture section accepted documented in this encounter Plan of Treatment Upcoming Encounters Date Type Specialty Care Team Description 12/16/2021 Appointment Infusion Therapy 04/15/2022 Office Visit Hematology and Oncology Poppy Felton, SHAHAB 111 [facility], [facility] 2 [place], [place] [phone] (Wo bradford) 05/30/2022 Office Visit Surgical Oncology Asa Cameron MD 111 [facility], [facility] 2 [place], [place] [phone] (Wo rk) documented as of this encounter Procedures Procedure Name Priority Date/Time Associated Diagnosis Comme nts HEPATIC FUNCTION Routine 04/06/2020 15:32 Recurrent cancer of Results for this PANEL (ALB,ALK EST right breast procedure are in PHOS,ALT,AST,DBIL,T (HCC-CMS) the resu lts OT YOLANDA,TOT PROT) section. documented in this encounter Results HEPATIC FUNCTION PANEL (ALB,ALK PHOS,ALT,AST,DBIL,TOT YOLANDA,TOT PROT) (04/06/2020 15:32 EST) Pathologist Sig nature Total Protein 6.7 6.3 - 8.2 g/dL [facility] Albumin 4.1 3.4 - 4.9 g/dL [facility] Bilirubin, Total <0.5 <1.4 mg/dL [facility] Conjugated Bilirubin 0.0 0.0 - 0.3 mg/dL [facility] Unconjugated Bilirubin 0.4 0.0 - 1.1 mg/dL [facility] Alkaline Phosphatase 49 38 - 126 U/L [facility] ALT 20 <35 U/L [facility] AST 24 15 - 46 U/L [facility] Specimen Blood - Venous blood (substance) Performing Organization Address City/State/ZIP Code Phon e Number [facility] [address] [place] [address] SERVICES documented in this encounter Visit Diagnoses Diagnosis Recurrent cancer of right breast (HCC-CM S) (HCC) documented in this encounter Administered Medications Inactive Administered Medications - up to 3 most recent administrations Medication Order MAR Action Action Date Dose Rate Site fulvestrant (FASLODEX) injection 500 Given 04/06/2020 15:35 EST 500 mg mg 500 mg, intramuscular, NOW X1, 1 dose, On Thu04/06/20 at 1530, Routine documented in this encounter Orders Lab Orders Without Results Count Last Ordered Date Fir st Ordered Date ALBUMIN 1 04/06/2020 documented in this encounter Care Teams Shampoo Assistant Relationship Specialty Start Date End Date Filomena Ochoa PA-C PCP - General 03/02/18 2 [place] [phone] documented as of this encounter
--- OUTSIDE RECORDS SUMMARY | 2021-11-29 00:25 | XMS_ITS | Encounter Summary ---
:1970 Author Organization [facility] Address [address] [place] [address] Care Team Providers Name Role Phone Filomena Ochoa PA-C Primary Care Provider [phone] Reason for Visit Reason Comments Injections Prior Authorization (Routine/Next Available) - Closed Specialty Diagnoses / Procedures Referred By Contact Refer red To Contact Hematology and Diagnoses Malignant neoplasm of female breast, unspecified estrogen receptor status, unspecified laterality, unspecified site of breast ([facility]) (HCC) Jessi Pleitez MD PhD Ep2 Hem/Onc Oncology [address] [place] [phone] [place] [address], [address] [place], [place] Fax: [phone] Referral ID Status Reason Start Date Expiration Date Visits Requ ested Visits Authorized [id number] Closed Other 02/06/2020 09/11/2021 15 15 Encounter Details Date Type Department Care Team Description 02/10/2020 Hospital Encounter [facility] Cancer Center Recu rrent cancer of Hematology & Oncology right breast ([facility]) - [facility] (Primary Dx) [address] [place] [address] Social History Tobacco Use Types Packs/Day Years [...] Sign Reading Time Taken Comments Blood Pressure 120/62 02/10/2020 1318 EST Pulse 72 02/10/2020 1318 EST Temperature 36.8 ??C (98.3 ??F) 02/10/2020 1318 EST Respiratory Rate 16 02/10/2020 1318 EST Oxygen Saturation 100% 02/10/2020 1318 EST Inhaled Oxygen Concentration - - Weight 66.2 kg (146 lb) 02/10/2020 1318 EST Height - - Body Mass Index 23.04 11/08/2019 0912 EDT documented in this encounter [...] buPROPion (WELLBUTRIN XL) Take 1 Tab by 90 Tab 3 020 03/05/2020 300 mg XL mouth daily. tabletIndications: Depression, [...] Take 1 Tab by 90 Tab 3 201903/05/2020 tablet mouth at bedtime. documented as of this encounter Discharge Disposition Disposition Code Departure Means Destination Home or Self Care documented in this encounter Progress Notes Kendra Lombardi RN - 02/10/2020 1330 EST Out-patient Chemotherapy Note Patient presents to clinic today for cycle # 1 , day # 1 of FASLODEX treatment plan. Reviewed lab results with patient CBC: Lab Results Component Value Date WBC 6.41 12/19/2019 HGB 13.3 12/19/2019 HCT 40.4 12/19/2019 PLT 247 12/19/2019 NEUTROABS 2.96 03/30/2019 Chemistry: Lab Results Component Value Date NA 140 02/10/2020 K 4.1 02/10/2020 BUN 24 02/10/2020 CREATININE 0.82 02/10/2020 CALCIUM 9.6 02/10/2020 MG 2.1 11/21/2011 Parameters for today???s treatment met Faslodex given (see MAR) IM to bilateral gluteals. Dressings applied. Patient tolerated treatment, however, experienced nausea after receiving both injections, states shehas a low tolerance and gets nauseous easily, based on prior experiences with medications. Jazmine Delaney PECAN PICKER at chair to assess, ordered 4 mg Zofran ODT and given (see MAR). MD Pleitez primary RN notified and patient requested prescription for Zofran. Pt requests to receive zofran prior to future Faslodex injections as well. Patient education: Patient educated on all medications administered today. Patient expressed understanding of education provided and no barriers identified Patient and family encouraged to call clinic with any issues. I was supervised by Dr. Ott who was present and immediately available in the office suite. KENDRA LOMBARDI RN 02/10/2020 14:43 documented in this encounter Miscellaneous Notes Addendum Note - Tera Silva - 02/10/2020 1330 EST Encounter addended by: Tera Silva on: 02/27/2020 11:18 Actions taken: Charge Capture section accepted documented in this encounter Plan of Treatment Upcoming Encounters Date Type Specialty Care Team Description 12/16/2021 Appointment Infusion Therapy 04/15/2022 Office Visit Hematology and Oncology Poppy Felton PA-C 111 [facility], [facility] 2 [place], [place] [phone] (Wo rk) 05/30/2022 Office Visit Surgical Oncology Asa Cameron MD 111 [facility] 2 [place], [place] [phone] (Wo rk) documented as of this encounter Visit Diagnoses Diagnosis Recurrent cancer of right breast (HCC-CM S) (HCC) - Primary documented in this encounter Administered Medications Inactive Administered Medications - up to 3 most recent administrations Medication Order MAR Action Action Date Dose Rate Site fulvestrant (FASLODEX) injection 500 Given 02/10/2020 14:30 EST 500 mg mg 500 mg, intramuscular, NOW X1, 1 dose, On Thu02/10/20 at 1430, Routine ondansetron (ZOFRAN-ODT) disintegrating tablet 4 Given 02/10/2020 14:36 EST 4 mg mg 4 mg, oral, NOW X1, 1 dose, On Thu02/10/20 at 1445, Routine documented in this encounter Orders Nursing Count Last Ordered Date First Ordered Date INFORMED CONSENT 1 02/10/2020 Appointment Requests Count Last Ordered Date First Ord ered Date ONCBCN INFUSION APPOINTMENT REQUEST - 1 02/27/2020 CALCULATED ONCBCN INJECTION APPOINTMENT REQUEST 1 02/10/2020 documented in this encounter Care Teams Director Equipment Relationship Specialty Start Date End Date Filomena Ochoa PA-C PCP - General 03/02/18 2 [facility] [phone] documented as of this encounter
--- OUTSIDE RECORDS SUMMARY | 2021-11-29 00:25 | XMS_ITS | Encounter Summary ---
:1970 Author Organization [facility] Address [address] [place] [address] Care Team Providers Name Role Phone Filomena Ochoa PA-C Primary Care Provider Encounter Details Date Type Department Care Team Description 05/09/2020 Phlebotomy Only [facility] Blood Doctor, Recurr ent cancer of Hematology & Oncology [facility] Hem Onc [facility] ([facility]) (Primary 111 [facility] Dx) [place] [address] Social History Tobacco Use Types [...] as of this encounter Progress Notes Tonny iRchardson MA - 05/09/2020 1430 EDT Venipuncture performed for Dittus Per orders of Dittus Number of attempts 1 RT AC I was supervised by Delbert who was present and immediately available in the office suite. TONNY RICHARDSON MA 05/09/2020 14:43 documented in this encounter Plan of Treatment Upcoming Encounters Date Type Specialty Care Team Description 12/16/2021 Appointment Infusion Therapy 04/15/2022 Office Visit Hematology and Oncology Poppy Felton, PAChuyC 111 [facility], [facility] 2 [place], [place] [phone] (Wo rk) 05/30/2022 Office Visit Surgical Oncology Asa Cameron MD 111 [facility] 2 [place], [place] [phone] (Wo rk) documented as of this encounter Procedures Procedure Name Priority Date/Time Associated Comments Diagnosis COMPREHENSIVE STAT 05/09/2020 14:38 Recurrent cancer of Res ults for this METABOLIC PANEL EDT right breast procedure ar e in (ONCOLOGY USE ONLY-INC ([facility]) the r esults MG) section. COMPLETE BLOOD COUNT STAT 05/09/2020 14:38 Recurrent cancer of Results for this AND DIFFERENTIAL EDT right breast procedure a re in ([facility]) the results section. documented in this encounter Results (ABNORMAL) COMPLETE BLOOD COUNT AND DIFFERENTIAL (05/09/2020 14:38 EDT) WBC 8.23 4.00 - 12.40 [facility] RBC 5.00 3.86 - 5.04 [facility] M/[facility] LABORATORY SERVICES Hemoglobin 15.4 (H) 11.6 - 15.2 [facility] gm/dL LABORATORY SERVICES HCT 45.9 (H) 34.9 - 44.4 % [facility] MCV 92 81 - 98 fl [facility] MCH 30.8 26.7 - 33.3 pg [facility] MCHC 33.6 32.1 - 35.9 [facility] gm/dL LABORATORY SERVICES RDW-CV 12.3 <14.7 % [facility]OR[facility]ORY SERVICES RDW-SD 41.3 <50.4 fl [facility]OR[facility]ORY SERVICES PLT 275 141 - 377 K/[facility] LABORATORY SERVICES MPV 8.7 (L) 9.5 - 12.7 fl [facility] SERVICES Neutrophils 56.6 % [facility] Lymphocytes 33.7 % [facility] Monocytes 7.8 % [facility] Eosinophils 0.9 % [facility] Basophils 0.6 % [facility] Immature [place] 0.4 % [facility] Absolute Neutrophils 4.67 2.20 - 8.85 [facility] LABORATORY SERVICES Absolute Lymphocytes 2.77 1.09 - 3.30 [facility] LABORATORY SERVICES Absolute Monocytes 0.64 0.10 - 0.80 [facility] LABORATORY SERVICES Absolute Eosinophils 0.07 0.03 - 0.61 [facility] LABORATORY SERVICES Absolute Basophils 0.05 0.01 - 0.11 [facility] LABORATORY SERVICES Absolute Immature 0.03 0.00 - 0.06 [facility] [place] [facility]ATORY SERVICES Type of Differential: Auto [facility] Specimen Blood - Venous blood (substance) Performing Organization Address City/State/ZIP Code Phon e Number [facility] [address] [place] [address] SERVICES (ABNORMAL) COMPREHENSIVE METABOLIC PANEL (ONCOLOGY USE ONLY-INC MG) (05/09/2020 14:38 EDT) Sodium 136 136 - 145 [facility] mEq/L [facility] SERVICES Potassium 4.2 3.5 - 5.0 [facility] mEq/L [facility] Chloride 99 96 - 110 [facility] mEq/L [facility] SERVICES CO2 Total 27 22 - 32 mEq/L [facility] SERVICES Glucose 100 70 - 100 [facility] mg/dL [facility] BUN 33 (H) 10 - 26 mg/dL [facility] SERVICES Creatinine 0.81 0.52 - 1.04 [facility] mg/dL [facility] eGFR 87Comment: eGFR >60 [facility] calculated using mL/min/1.73m2 [facility] LAB[facility]ORY CKD-EPI equation SERVICES for non- Americans. Multiply eGFR by 1.16 for patients. Total Protein 8.0 6.3 - 8.2 [facility] g/dL [facility] Albumin 4.8 3.4 - 4.9 [facility] g/dL [facility] Alkaline 65 38 - 126 U/L [facility] Phosphatase [facility] AST 25 15 - 46 U/L [facility] ALT 22 <35 U/L [facility] Bilirubin, Total <0.5 <1.4 mg/dL [facility] Calcium 10.5 8.5 - 10.5 [facility] mg/dL [facility] Calculated Calcium 9.9 8.5 - 10.5 [facility] mg/dL [facility] Magnesium 2.2 1.7 - 2.8 [facility] mg/dL [facility] Specimen Blood - Venous blood (substance) Performing Organization Address City/State/ZIP Code Phon e Number [facility] [address] [place] [address] SERVICES documented in this encounter Visit Diagnoses Diagnosis Recurrent cancer of right breast (HCC-CM S) (HCC) - Primary documented in this encounter Care Teams Stock Selector Relationship Specialty Start Date End Date Filomena Ochoa PA-C PCP - General 03/02/18 [address] [place] [phone] documented as of this encounter
--- OUTSIDE RECORDS SUMMARY | 2021-11-29 00:25 | XMS_ITS | Encounter Summary ---
:1970 Author Organization [facility] Address [address] [place] [address] Care Team Providers Name Role Phone Filomena Ochoa PA-C Primary Care Provider [phone] Reason for Visit Reason Comments Follow-up Encounter Details Date Type Department Care Team Description 01/30/2020 [facility] Jessi Pleitez MD Malig nant neoplasm of Hematology & PhD female breast, Oncology - Main [address] unspecifie d estrogen [address] receptor status, [address] [facility], [place] [address] Pavilion, Level 2 laterality, [place] [phone] breast ([facility]) [phone] (Wo rk) (Primary Dx) Social History Tobacco Use Types [...] encounter Progress Notes Jessi Pleitez MD - 01/30/2020 1000 EST REASON FOR OFFICE VISIT: Discussion of cancer management The concept of ???Telemedicine?? has been described [...] dermis, 4mm, thewell differentiated, ER positive 95%, SC +95%, HER-2 0 by IHC C. [address] CT scans and nuclear bone scan negative D. Radiation 15 fractions to right chest wall June 2019 E. Initiation of tamoxifen 10 mg April 2019 stopped September 2019 because of mood issues. Restarted November through December and discontinued in December 2019 2. Invasive adenocarcinoma of the right breast identified based palpable mass in June 2011. ?? a. Total mastectomy and prophylactic mastectomy performed 08/14/2011 with pathology revealing a 1.2 cm invasive ductal carcinoma of the right breast, well-differentiated, lymphovascular invasion identified on the core biopsy and by DFCI there was an area on the mastectomy specimen. 0/4 lymph nodes; ER+>90%, SC+ > 90%; HER-2 2+ by immunohistochemistry and negative by FISH. Oncotype DX score 20 (intermediate range). ?? b. Tamoxifen 08/2011 until Mar [...] 6. Other chronic health problems include ADHD, depression and anxiety. SUBJECTIVE: Ms Dow is receiving a televideo consultation today to discuss antiestrogen therapy for a breast cancer recurrence. She has a history of breast cancer and she completed almost 5 years of anti estrogen therapy. A skin nodule was noted close to the mastectomy scar in mid 2017 and was excised March 16, 2019. It was thought to be a cyst. It was removed by dermatology. Pathology revealed awell-differentiated invasive ductal carcinoma ER +95% SC +90%, and HER-2 0 by IHC. Positive margins were noted and a reexcision was completed on 04/08/2019. Invasive ductal carcinoma with tubular features was noted in the dermis and measured 4 mm this was excised with a 1 mm inferior margin. It was felt that this represented her initial cancer. Radiation was provided from June 26 to July 14 with 15 fractions provided to the area. She restarted tamoxifen at 10 mg in April 2019 but discontinued it in September. The tamoxifen again has resulted in depression, mood swings and emotional lability. As well she notes word finding difficulty. Additionally she has hot flashes. The symptoms resolve quickly when she discontinued the tamoxifen in September. She restarted it again the end of November and took it for a month and the symptoms returned. After she discontinued the tamoxifen after taking it for 4-1/2 years it took several months but then she felt much better by the fall 2016. Her depression symptoms had significantly improved. She felt that this was related to discontinuing the tamoxifen but also to being more rigorously physicallyactive. She has been on Wellbutrin. When she takes the tamoxifen she feels dullness and inability tofind mike. She is currently perimenopausal. ROS: A 10 point review of systems [...] tablet Take by mouth at bedtime. ??? tamoxifen (NOLVADEX) 10 mg tablet Take 10 mg by mouth daily. ??? traZODone (DESYREL) 100 mg tablet Take 1 Tab by mouth at bedtime. ??? UNABLE TO FIND as needed. Med Name: [facility] No facility-administered medications prior to visit. Social [...] this visit. Estimated body mass index is 22.25 kg/m?? as calculated from the following: Height as of 11/08/19: 169.5 cm (66.75). Weight as of 11/08/19: 64 kg (141 lb). ECOG Performance Status: 0 General: Comfortable, cooperative and in no apparent distress NEURO: Alert and oriented x 3; Grossly neurologically intact DIAGNOSTIC DATA No visits with results within 1 Day(s) from this visit. Latest known visit with results is: Lab Requisition on 12/19/2019 Component Date Value Ref Range Status ??? Final Diagnosis 12/19/2019 Final Value:This result contains rich text formatting which cannot be displayed here. ??? Attestation 12/19/2019 Final Value:This result contains rich text formatting which cannot be displayed here. ??? Clinical History 12/19/2019 Final Value:This result contains rich text formatting which cannot be displayed here. ??? Gross Description 12/19/2019 Final Value:This result contains rich text formatting which cannot be displayed here. ??? Performing Lab 12/19/2019 Final Value:This result contains rich text formatting which cannot be displayed here. ASSESSMENT: Ms Dow is a 49-year-old female with a history of a [id number] invasive ductal carcinomawhich was ER positive, well-differentiated. She was noted to have multifocal invasive carcinoma. Shereceived bilateral mastectomies and a right sentinel lymph node evaluation as well as bilateral implant reconstruction. Her Oncotype DX score was 20 and she did not receive chemotherapy. She initiated tamoxifen in August of 2011 A trial of toremifene was initiated in 2017 but was also noted to have sideeffects. She took antiestrogen therapy approximately 4-1/2 years. Her side effects were predominantly worsening of depression that she has been dealing with for most of her life. Off of tamoxifen the symptoms have consistently been better. She has met with providers from [facility] and [facility]. Antiestrogen therapy has been recommended. Options include restarting tamoxifen. Given the recurrence of her cancerI would prefer to provide tamoxifen with ovarian suppression. Ideally however an aromatase inhibitorwith ovarian suppression would provide greater benefit at decreasing risk of recurrence. Alternatively Faslodex could be considered. The patient is aware of these options. We discussed the fact that Faslodex could be started without ovarian suppression at least initially. Providing ovarian suppressionwith the Faslodex would provide more antiestrogen therapy. Side effects of Faslodex include hot flashes., Joint aches and discomfort. She understands that Faslodex is provided monthly after loading doses. She is reminded that symptoms would resolve if she discontinued the Faslodex. Additionally she has had a bone density scan with a small amount of bone density loss we could consider adding zoledronic acid as well. We discussed the fact that zoledronic acid has the potential to decrease the incidence of cancer spreading to bone. Additionally the Zometa would help with osteoporosis prevention if she proceeds with ovarian suppression. PLAN: 1. Faslodex will be initiated next week 2. Obtain labs as needed for Faslodex 3. Next bone density scan would be due April 2021 4. Consider initiating zoledronic acid. We have asked the patient to check in with her dentist 5. Follow-up return to discuss side effects the last week in January when she would be due for her second loading dose of Faslodex. TELEMEDICINE VIDEO VISIT Today's visit was provided through telemedicine video conferencing: I have reviewed the appropriateness of using video technology with the patient with regards to today's visit. The location of the patient : Home The location of the provider: Office The following staff and their role did participate in today's encounter visit: MD Jessi Posada MD 01/28/2020 14:11 documented in this encounter Plan of Treatment Upcoming Encounters Date Type Specialty Care Team Description 12/16/2021 Appointment Infusion Therapy 04/15/2022 Office Visit Hematology and Oncology Poppy Felton PAChuyC [address] [phone] (Wo rk) 05/30/2022 Office Visit Surgical Oncology Asa Cameron MD [address] [phone] (Wo rk) documented as of this encounter Visit Diagnoses Diagnosis Malignant neoplasm of female breast, uns pecified estrogen receptor status, unspecified laterality, unspecified site of breast ([facility]) (HCC) - Primary documented in this encounter Discontinued Medications Medication Sig Discontinue Reason Start Date End Date tamoxifen (NOLVADEX) 10 Take 10 mg by Patient Stopped Taking 01/30/2020 mg tablet mouth daily. documented as of this encounter Care Teams Document Management Consultant Relationship Specialty Start Date End Date Filomena Ochoa PA-C PCP - General 03/02/[address] [place] [phone] documented as of this encounter
--- OUTSIDE RECORDS SUMMARY | 2021-11-29 00:25 | XMS_ITS | Encounter Summary ---
:1970 Author Organization [facility] Address [address] [place] [address] Care Team Providers Name Role Phone Filomena Ochoa PA-C Primary Care Provider [phone] Encounter Details Date Type Department Care Team Description 02/08/2020 Orders Only [facility], [facility] cancer of Hematology & Oncology - [place]AM[place] rig breast ([facility]) Main [place] (Primary Dx) [address] [place] [address] Social History Tobacco Use Types [...] and Oncology Poppy Felton PA-C [address] [phone] (Wo rk) 05/30/2022 Office Visit Surgical Oncology Asa Cameron MD [address] [phone] (Wo rk) documented as of this encounter Visit Diagnoses Diagnosis Recurrent cancer of right breast ([facility]) (HCC) - Primary documented in this encounter Orders Appointment Requests Count Last Ordered Date First Ord ered Date ONCBCN INJECTION APPOINTMENT REQUEST 1 02/10/2020 documented in this encounter Care Teams Correspondence Coordinator Relationship Specialty Start Date End Date Filomena Ochoa PA-C PCP - General 03/02/18 [address] [place] [phone] documented as of this encounter
--- OUTSIDE RECORDS SUMMARY | 2021-11-29 00:25 | XMS_ITS | Encounter Summary ---
:1970 Author Organization [facility] Address [address] [place] [address] Care Team Providers Name Role Phone Filomena Ochoa PA-C Primary Care Provider [phone] Reason for Visit Reason Comments Follow-up Encounter Details Date Type Department Care Team Description 05/24/2020 Telemedicine [facility] Jessi Pleitez MD [facility] cancer of Hematology & PhD right breast Oncology - [address] ([facility]) (Primary [address] Dx) [address] [place] [address] [address], [place] [phone] (Wo rk) Social History Tobacco [...] encounter Progress Notes Jessi Pleitez MD - 05/24/2020 0900 EDT REASON FOR OFFICE VISIT: Discussion of [...] dermis, 4mm, thewell differentiated, ER positive 95%, OK +95%, HER-2 0 by IHC C. Staging [...] mastectomy specimen. 0/4 lymph nodes; ER+ >90%, OK+ >??90%; HER-2 2+ by immunohistochemistry and negative [...] discuss side effects related tofluvestrant. She has not noticed hot flashes with the faslodex. The injection interferes with sleep.Hard to fall asleep and then wakes up easily. Trazadone helps. She is no longer nauseated when she gets the injections and the zofran was causing constipation so it was discontinued. She has some hot flashes but they are better than they were on tamoxifen. She would like to consider initiating Zometa for bone strengthening and prevention. ROS: A 10 point review of systems [...] Nausea. (Patient not taking: Reported on 04/02/2020) ??? traZODone (DESYREL) 100 mg tablet Take 1 Tab by mouth at bedtime. ??? UNABLE TO FIND as needed. [facility] No facility-administered medications prior to visit. Social History Tobacco Use ??? Smoking status: Never Smoker ??? Smokeless tobacco: Never Used Substance Use Topics ??? Alcohol use: Yes Alcohol/week: 2.0 standard drinks Types: 2 Standard drinks or equivalent per week Frequency: 2-3 times a week Drinks per session: 1 or 2 Binge frequency: Never Currently in [place]. She will be returning to [place] end of May Objective: There were no vitals taken for this visit. Estimated body mass index is 22.33 kg/m?? as calculated from the following: Height as of 11/08/19: 169.5 cm (66.75). Weight as of 04/06/20: 64.2 kg (141 lb 8 oz). ECOG Performance Status: 0 General: Comfortable, cooperative and in no apparent distress NEURO: Alert and oriented x 3; Grossly neurologically intact DIAGNOSTIC DATA No visits with results within 1 Day(s) from this visit. Latest known visit with results is: Phlebotomy Only on 05/09/2020 Component Date Value Ref Range Status ??? Sodium 05/09/2020 136 136 - 145 mEq/L Final ??? Potassium 05/09/2020 4.2 3.5 - 5.0 mEq/L Final ??? Chloride 05/09/2020 99 96 - 110 mEq/L Final ??? CO2 Total 05/09/2020 27 22 - 32 mEq/L Final ??? Glucose 05/09/2020 100 70 - 100 mg/dL Final ??? BUN 05/09/2020 33* 10 - 26 mg/dL Final ??? Creatinine 05/09/2020 0.81 0.52 - 1.04 mg/dL Final ? ? eGFR 05/09/2020 87 >60 mL/min/1.73m2 Final eGFR calculated using CKD-EPI equation for non- Americans. Multiply eGFR by 1.16 for AfricanAmerican patients. ??? Total Protein 05/09/2020 8.0 6.3 - 8.2 g/dL Final ??? Albumin 05/09/2020 4.8 3.4 - 4.9 g/dL Final ??? Alkaline Phosphatase 05/09/2020 65 38 - 126 U/L Final ??? AST 05/09/2020 25 15 - 46 U/L Final ? ? ALT 05/09/2020 22 <35 U/L Final ? ? Bilirubin, Total 05/09/2020 <0.5 <1.4 mg/dL Final ??? Calcium 05/09/2020 10.5 8.5 - 10.5 mg/dL Final ??? Calculated Calcium 05/09/2020 9.9 8.5 - 10.5 mg/dL Final ??? Magnesium 05/09/2020 2.2 1.7 - 2.8 mg/dL Final ??? WBC 05/09/2020 8.23 4.00 - 12.40 K/cmm Final ??? RBC 05/09/2020 5.00 3.86 - 5.04 M/cmm Final ??? Hemoglobin 05/09/2020 15.4* 11.6 - 15.2 gm/dL Final ??? HCT 05/09/2020 45.9* 34.9 - 44.4 % Final ??? MCV 05/09/2020 92 81 - 98 fl Final ??? MCH 05/09/2020 30.8 26.7 - 33.3 pg Final ??? MCHC 05/09/2020 33.6 32.1 - 35.9 gm/dL Final ? ? RDW-CV 05/09/2020 12.3 <14.7 % Final ? ? RDW-SD 05/09/2020 41.3 <50.4 fl Final ??? PLT 05/09/2020 275 141 - 377 K/cmm Final ??? MPV 05/09/2020 8.7* 9.5 - 12.7 fl Final ??? Neutrophils 05/09/2020 56.6 % Final ??? Lymphocytes 05/09/2020 33.7 % Final ??? Monocytes 05/09/2020 7.8 % Final ??? Eosinophils 05/09/2020 0.9 % Final ??? Basophils 05/09/2020 0.6 % Final ??? Immature Grans 05/09/2020 0.4 % Final ??? Absolute Neutrophils 05/09/2020 4.67 2.20 - 8.85 K/cmm Final ??? Absolute Lymphocytes 05/09/2020 2.77 1.09 - 3.30 K/cmm Final ??? Absolute Monocytes 05/09/2020 0.64 0.10 - 0.80 K/cmm Final ??? Absolute Eosinophils 05/09/2020 0.07 0.03 - 0.61 K/cmm Final ??? Absolute Basophils 05/09/2020 0.05 0.01 - 0.11 K/cmm Final ??? Absolute Immature Grans 05/09/2020 0.03 0.00 - 0.06 K/cmm Final ??? 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 She had a local recurrence February 2019. She is currently receiving monthly fulvestrant. Which she is tolerating. She will try to arrange for a fulvestrant injection in [place] or [place]. If she is not able to do this she will receive fulvestrantwhen she returns to [place] the last week of May. Given that that is only 2 weeks late we will notneed to reload the fulvestrant. We discussed the possibility of initiating zoledronic acid for both bone strengthening and for prevention. We explained that the medically concerning side effect of zoledronic acid is osteonecrosis of the jaw. We have suggested that she discuss with her dentist the possibility of initiating zoledronicacid and whether she requires any invasive dental procedures such as a root canal or crown. PLAN: 1. Fulvestrant 500mg monthly 2. Next bone density scan would be due April 2021 3. Consider initiating zoledronic acid. We have asked the patient to check in with her dentist 4. Continued follow up with Dr Cameron who she sees in September 2020 5. Follow-up return approximately 3 months when she will be receiving [...] Oncology Poppy Felton PA-C 111 [facility] 2 [place], [place] [phone] (Wo rk) 05/30/2022 Office Visit Surgical Oncology Asa Cameron MD 111 [facility] 2 [place], [place] [phone] (Wo rk) documented as of this encounter Visit Diagnoses Diagnosis Recurrent cancer of right breast ([facility]CC[facility]) (HCC) - Primary documented in this encounter Orders Appointment Requests Count Last Ordered Date First Ord ered Date ONCBCN CLINIC APPOINTMENT REQUEST 1 05/24/2020 documented in this encounter Care Teams Sweep Molder Relationship Specialty Start Date End Date Filomena Ochoa PA-C PCP - General 03/02/18 [address] [place] [phone] documented as of this encounter
--- OUTSIDE RECORDS SUMMARY | 2021-11-29 00:25 | XMS_ITS | Encounter Summary ---
:1970 Author Organization [facility] Address [address] [place] [address] Care Team Providers Name Role Phone Filomena Ochoa PA-C Primary Care Provider [phone] Reason for Visit Reason Onset Date Comments Other 10/23/2019 Encounter Details Date Type Department Care Team Description 10/23/[address] [facility] Adult Nova Ochoa, Other Primary Care - Hallie GUDINO [address] [place] [address] [place], [place] [phone] (Wo rk) Social History Tobacco Use [...] encounter Miscellaneous Notes Telephone Encounter - Filomena cOhoa PA-C - 10/23/20194 EDT [employer] message sent. documented in this encounter Plan of Treatment Upcoming Encounters Date Type Specialty Care Team Description 12/16/2021 Appointment Infusion Therapy 04/15/2022 Office Visit Hematology and Oncology Poppy Felton PA-C 111 [facility] 2 [place], [place] [phone] (Wo rk) 05/30/2022 Office Visit Surgical Oncology Asa Cameron MD 111 [facility] 2 [place], [place] [phone] (Wo rk) documented as of this encounter Visit Diagnoses Not on filedocumented in this encounter Care Teams Piping Drafter Relationship Specialty Start Date End Date Filomena Ochoa PA-C PCP - General 03/02/18 [address] [place] [phone] documented as of this encounter
--- OUTSIDE RECORDS SUMMARY | 2021-11-29 00:25 | XMS_ITS | Encounter Summary ---
:1970 Author Organization [facility] Address [address] [place] [address] Care Team Providers Name Role Phone Filomena Ochoa PA-C Primary Care Provider [phone] Encounter Details Date Type Department Care Team Description 12/20/[address] [facility] Armas Ne oplasm of Pathology & PA uncertain behavior Laboratory Medicine [address] [place] [address] [address] [place] [phone] Social History Tobacco Use Types Packs/Day Years [...] decisions? documented as of this encounter Discharge Disposition Disposition Code Departure Means Destination Home or Self Care documented in this encounter Plan of Treatment Upcoming Encounters Date Type Specialty Care Team Description 12/16/2021 Appointment Infusion Therapy 04/15/2022 Office Visit Hematology and Oncology Poppy Felton PA-C [address] [phone] (Wo rk) 05/30/2022 Office Visit Surgical Oncology Asa Cameron MD [address] [phone] (Wo rk) documented as of this encounter Procedures Procedure Name Priority Date/Time Associated Diagnosis Comme [facility] SURGICAL PATHOLOGY Today 12/19/2019 14:52 Neoplasm of Resul ts for this EDT uncertain behavior procedure are in of skin the results section. documented in this encounter Results SURGICAL PATHOLOGY (12/19/2019 14:52 EDT) Final Diagnosis See [facility] CENTER LABORATORY SERVICES Attestation By the [facility] MEDICAL Electronica lly below, the attending CENTER signed by Rhianna, physician certifies LABORATORY Trista valadez MD on that they have 1) SERVICES 01/23/2020 at 1323 personally conducted a gross and/or microscopic examination of the described specimen(s), and/or personally interpreted the results of laboratory testing of the described specimen(s), and 2) personally rendered or confirmed the above diagnosis. Clinical History See scanned [facility] MEDICAL [facility]. [facility] Gross Description A. [facility] MED[facility] This gross represents the or iginal gross description prior to the [facility]. [facility] Received in formalin jenny d with proper patient identification (initials S, A) and right central adventism is a punch biopsy of granular cheng skin (0.3 cm in diameter by 0.4 cm in depth). The specimen is submitted intact in A1. SERVICES B. Received in formalin jenny d with proper patient identification (initials S, A) and right inferior central kalani... Is a punch biopsy of granular cheng skin (0.3 cm in diameter by 0.3 cm in depth). The specimen is submitted intact in B1. C. Received in formalin jenny d with proper patient identification (initials S, A) and right lower cutaneous lip is a punch biopsy of granular cheng skin (0.3 cm in diameter by 0.4 cm in depth). The specimen is submitted intact in C1. TANIYA RODRÍGUEZ([facility]) 12/21/2019 7:58 Performing Lab [facility]ORATORY SERVICES Scanned Images [facility]ORATORY SERVICES Specimen Tissue - Entire lip (body structure) Tissue specimen (specimen) - Skin (tissu e) specimen (specimen) Tissue specimen (specimen) - Entire lip (body structure) Narrative This result has an attachment that is no t available. Performing Organization Address City/State/ZIP Code Phon e Number [facility] [address] [place] [address] SERVICES documented in this encounter Visit Diagnoses Diagnosis Neoplasm of uncertain behavior of skin documented in this encounter Care Teams Associate Programmer Relationship Specialty Start Date End Date Filomena Ochoa PA-C PCP - General 03/02/18 [address] [place] [phone] documented as of this encounter
--- OUTSIDE RECORDS SUMMARY | 2021-11-29 00:25 | XMS_ITS | Encounter Summary ---
:1970 Author Organization [facility] Address [address] [place] [address] Care Team Providers Name Role Phone Filomena Ochoa PA-C Primary Care Provider [phone] Reason for Visit Reason Comments Other Encounter Details Date Type Department Care Team Description 06/15/2020 Refill [facility] Adult Filomena Angelo PA-C Other Primary Care - [address] [phone] (Wo rk) Social History Tobacco Use Types [...] Date buPROPion (WELLBUTRIN XL) TAKE 1 TABLET DAILY 90 Tab 3 0 06/15/2020 05/08/2021 300 mg XL tabletIndications: Depression, unspecified depression type documented in this encounter Miscellaneous Notes Telephone Encounter - Marcus Ellis RN - 06/15/2020 1300 EDT filled Telephone Encounter - Cristiane Bautista - 06/15/2020 0837 EDT Requested Prescriptions Pending Prescriptions Disp Refills ??? buPROPion (WELLBUTRIN XL) 300 mg XL tablet [Pharmacy Med Name: BUPROP 24 XL TAB 300MG XL] 90 Tab3 Sig: TAKE 1 TABLET DAILY [facility] - [place], [place] - [address] Confirmed Pharmacy? Yes Patient out of medication? Unknown Last Refill Date: 03.07.20 Refills left? (explain exceptions requiring early refill) No Recent Visits Date Type Provider Dept 08/22/19 Office Visit Filomena Ochoa PA-C [facility] 12/24/18 [facility] Showing recent visits within past 540 days with a meds authorizing provider and meeting all other requirements Future Appointments No visits were found meeting these conditions. Showing future appointments within next 150 days with a meds authorizing provider and meeting all other requirements Last appt: video appt Jacques on 05.04.20 Future appointment: Other - not scheduled, Filomena's notes do not say when the pt needs to be seen again Cristiane Bautista 06/15/2020 8:37 documented in this encounter Plan of Treatment Upcoming Encounters Date Type Specialty Care Team Description 12/16/2021 Appointment Infusion Therapy 04/15/2022 Office Visit Hematology and Oncology Poppy Felton PA-C 111 [facility], [facility] 2 [place], [place] [phone] (Wo rk) 05/30/2022 Office Visit Surgical Oncology Asa Cameron MD 111 [facility] 2 [place], [place] [address] (Wo rk) documented as of this encounter Visit Diagnoses Diagnosis Depression, unspecified depression type - Primary documented in this encounter Discontinued Medications Medication Sig Discontinue Reason Start Date End Date buPROPion (WELLBUTRIN XL) Take 1 Tab by mouth 03/07/19 21 06/15/2020 300 mg XL daily. tabletIndications: Depression, unspecified depression type documented as of this encounter Care Teams Personnel Officer Relationship Specialty Start Date End Date Filomena Ochoa PA-C PCP - General 03/02/18 2 [place] [phone] documented as of this encounter
--- OUTSIDE RECORDS SUMMARY | 2021-11-29 00:25 | XMS_ITS | Encounter Summary ---
:1970 Author Organization [facility] Address [address] [place] [address] Care Team Providers Name Role Phone Filomena Ochoa PA-C Primary Care Provider [phone] Reason for Referral Consult (Routine) - Authorization Not Required Specialty Diagnoses / Procedures Referred By Contact Refer red To Contact Hematology and Diagnoses Malignant neoplasm of female breast, unspecified estrogen receptor status, unspecified laterality, unspecified site of breast ([facility]) ([facility]) Filomena Ochoa Kim L, MD PhD Oncology SHAHAB Wolf [address] Luis A Zapata [facility] [address] [place] [address] Phone: Fax: Referral ID Status Reason Start Expiration Visits Visits Date Date Requested Authorized [id number] Authorization Specialty 01/17/20 1 1 Not Required Services 20 Required Question Answer Reason for Request: s/p breast cancer tx, pt req uesting consult Dr. Pleitez Reason for Visit Reason Onset Date Comments Referral Request 01/17/2020 Encounter Details Date Type Department Care Team Description 01/17/[address] [facility] Adult Nova Ochoa, Referral Request Primary Care - Hallie UGDINO [address] [phone] (Wo rk) Social History Tobacco Use [...] encounter Miscellaneous Notes Telephone Encounter - Filomena Sequeira - 01/17/2020 1202 EST LM msg for pt to call office. Please relay Filomena Ochoa's msg below. elephone Encounter - Filomena Ochoa PA-C - 01/17/2020 0911 EST Pt requested referral to Dr. Jessi Pleitez on 12/20. Message was not received until today. Please let pt know that I placed the referral for Dr. Pleitez at the [facility] today. [employer] messaging is not working yet so I can't send message to pt to let her know. documented in this encounter Plan of Treatment Upcoming Encounters Date Type Specialty Care Team Description 12/16/2021 Appointment Infusion Therapy 04/15/2022 Office Visit Hematology and Oncology Poppy Felton PA-C 111 [facility], [facility] 2 [place], [place] [phone] (Wo rk) 05/30/2022 Office Visit Surgical Oncology Asa Cameron MD 111 [facility] 2 [place], [place] [phone] (Wo rk) Scheduled Referrals Name Type Priority Associated Diagnoses Order S chedule AMB CONS/FOLLOW Outpatient Referral Routine Malignant neoplasm of Expected: UP BREAST CANCER female breast, 0 MDC unspecified estrogen (Approx imate) receptor status, unspecified laterality, unspecified site of breast (HCC-CMS) documented as of this encounter Visit Diagnoses Diagnosis Malignant neoplasm of female breast, uns pecified estrogen receptor status, unspecified laterality, unspecified site of breast (HCC-CMS) (HCC) - Primary documented in this encounter Care Teams Care Director Rn Relationship Specialty Start Date End Date Filomena Ochoa PA-C PCP - General 03/02/18 2 [place] [phone] documented as of this encounter
--- OUTSIDE RECORDS SUMMARY | 2021-11-29 00:25 | XMS_ITS | Encounter Summary ---
:1970 Author Organization [facility] Address [address] [place] [address] Care Team Providers Name Role Phone Filomena Ochoa PA-C Primary Care Provider [phone] Encounter Details Date Type Department Care Team Description 02/12/2020 Orders Only [facility] Cancer Center Jessi Pleitez MD PhD Hematology & Oncology - [address] [place] [address] Level 2 [place], [place] [phone] [place] [phone] (Wo rk) Social History Tobacco Use Types [...] and Oncology Poppy Felton PA-C 111 [facility], [facility] 2 [place], [place] [phone] (Wo rk) 05/30/2022 Office Visit Surgical Oncology Asa Cameron MD 111 [facility] 2 [place], [place] [phone] (Wo rk) documented as of this encounter Visit Diagnoses Not on filedocumented in this encounter Care Teams Refrigeration Person Relationship Specialty Start Date End Date Filomena Ochoa PA-C PCP - General 03/02/18 2 [place] [phone] documented as of this encounter
--- OUTSIDE RECORDS SUMMARY | 2021-11-29 00:25 | XMS_ITS | Encounter Summary ---
:1970 Author Organization [facility] Address [address] [place] [address] Care Team Providers Name Role Phone Filomena Ochoa PA-C Primary Care Provider [phone] Encounter Details Date Type Department Care Team Description 04/06/2020 Hospital Encounter [facility] Recu rrent cancer of Hematology & Oncology right breast (HCC-CMS) - Main [place] (Primary Dx) [address] [place] [address] Social History Tobacco Use Types [...] Hematology and Oncology Poppy Felton PA-C 111 [facility], [facility] 2 [place], [place] [phone] (Wo rk) 05/30/2022 Office Visit Surgical Oncology Asa Cameron MD 111 [facility] Level 2 [place], [place] [phone] (Wo rk) documented as of this encounter Visit Diagnoses Diagnosis Recurrent cancer of right breast (HCC-CM S) (HCC) - Primary documented in this encounter Orders Medications Ordered That Might Not Have Count Last Ord ered Date First Ordered Date Been Administered fulvestrant (FASLODEX) injection 500 mg 1 04/06/19 21 Appointment Requests Count Last Ordered Date First Ord ered Date ONCBCN INFUSION APPOINTMENT REQUEST - 1 04/06/2020 CALCULATED documented in this encounter Care Teams Sandblaster Paint Sprayer Relationship Specialty Start Date End Date Filomena Ochoa PA-C PCP - General 03/02/18 2 [place] [phone] documented as of this encounter
--- OUTSIDE RECORDS SUMMARY | 2021-11-29 00:25 | XMS_ITS | Encounter Summary ---
:1970 Author Organization [facility] Address [address] [place] [address] Care Team Providers Name Role Phone Filomena Ochoa PA-C Primary Care Provider [phone] Encounter Details Date Type Department Care Team Description 02/10/2020 Phlebotomy Only [facility] Blood Doctor, Recurr ent cancer of Hematology & Oncology [facility] Hem Onc [facility] ([facility]CC[facility]) (Primary [address] Dx) [place] [address] Social History Tobacco Use Types [...] encounter Progress Notes Dhara Peterson MA - 02/10/2020 1300 EST Venipuncture performed for Dittus Per orders of Dittus Number of attempts 1 right ac PC I was supervised by Namrata who was present and immediately available in the office suite. DHARA PETERSON MA 02/10/2020 13:17 documented in this encounter Plan of Treatment Upcoming Encounters Date Type Specialty Care Team Description 12/16/2021 Appointment Infusion Therapy 04/15/2022 Office Visit Hematology and Oncology Poppy Felton PA-C 111 [facility] [place] [facility] 2 [place], [place] [phone] (Wo rk) 05/30/2022 Office Visit Surgical Oncology Asa Cameron MD 111 [facility] [place] [facility] 2 [place], [place] [phone] (Wo rk) documented as of this encounter Procedures Procedure Name Priority Date/Time Associated Comments Diagnosis COMPREHENSIVE STAT 02/10/2020 13:13 Recurrent cancer of Res ults for this METABOLIC PANEL (CMP) EST right breast proced ure are in ([facility]) the results section. documented in this encounter Results COMPREHENSIVE METABOLIC PANEL (CMP) (02/10/2020 13:13 EST) Sodium 140 136 - 145 [facility] mEq/L [facility] Potassium 4.1 3.5 - 5.0 [facility] Chloride 106 96 - 110 [facility] mEq/L [facility] CO2 Total 27 22 - 32 mEq/L [facility] Glucose 95 70 - 100 [facility] mg/dL [facility] BUN 24 10 - 26 mg/dL [facility] Creatinine 0.82 0.52 - 1.04 [facility] mg/dL [facility] eGFR 85Comment: eGFR >60 [facility] calculated using mL/min/1.73m2 [facility] CKD-EPI equation SERVICES for non- Americans. Multiply eGFR by 1.16 for patients. Total Protein 6.4 6.3 - 8.2 [facility] g/dL [facility] Albumin 3.8 3.4 - 4.9 [facility] g/dL [facility] Alkaline 50 38 - 126 U/L [facility] Phosphatase [facility] AST 25 15 - 46 U/L [facility] ALT 22 <35 U/L [facility] Bilirubin, Total <0.5 <1.4 mg/dL [facility] Calcium 9.6 8.5 - 10.5 [facility] mg/dL [facility] Calculated Calcium 9.8 8.5 - 10.5 [facility] mg/dL [facility] Specimen Blood - Venous blood (substance) Performing Organization Address City/State/ZIP Code Phon e Number [facility] [address] [place] [address] SERVICES documented in this encounter Visit Diagnoses Diagnosis Recurrent cancer of right breast (HCC-CM S) (HCC) - Primary documented in this encounter Care Teams Welder Explosion Relationship Specialty Start Date End Date Filomena Ochoa PA-C PCP - General 03/02/18 2 [place] [phone] documented as of this encounter
--- OUTSIDE RECORDS SUMMARY | 2021-11-29 00:25 | XMS_ITS | Encounter Summary ---
:1970 Author Organization [facility] Address [address] [place] [address] Care Team Providers Name Role Phone Filomena Ochoa PA-C Primary Care Provider [phone] Reason for Visit Reason Comments Injections Prior Authorization (Routine/Next Available) - Closed Specialty Diagnoses / Procedures Referred By Contact Refer red To Contact Hematology and Diagnoses Malignant neoplasm of female breast, unspecified estrogen receptor status, unspecified laterality, unspecified site of breast ([facility]) (HCC) Jessi Pleitez MD PhD Ep2 Hem/Onc Oncology [address] [place] [phone] [place] [address], Level 2 [place], [place] Fax: [phone] Referral ID Status Reason Start Date Expiration Date Visits Requ ested Visits Authorized [id number] Closed Other 02/06/2020 09/11/2021 15 15 Encounter Details Date Type Department Care Team Description 02/27/2020 Hospital Encounter [facility] Cancer Center Recu rrent cancer of Hematology & Oncology right breast ([facility]) - [facility] (Primary Dx) [address] [place] [address] Social History Tobacco Use Types Packs/Day Years [...] Sign Reading Time Taken Comments Blood Pressure 116/56 02/27/2020 0932 EST Pulse 84 02/27/2020 0932 EST Temperature 37.2 ??C (98.9 ??F) 02/27/2020 0932 EST Respiratory Rate 16 02/27/2020 0932 EST Oxygen Saturation 100% 02/27/2020 0932 EST Inhaled Oxygen Concentration - - Weight 65.2 kg (143 lb 12.8 oz) 02/27/2020 0932 EST Height - - Body Mass Index 22.69 11/08/2019 0912 EDT documented in this encounter [...] Take 1 Tab by 90 Tab 3 05/17/2 020 03/05/2020 300 mg XL mouth daily. [...] encounter Progress Notes Carmen Calloway RN - 02/27/2020 1000 EST Patient arrives today for cycle 1 Day 15 loading dose of Faslodex. With her first injections patienthad significant pain accompanied by nausea. She took zofran and ativan prior to arrival. She is safeto drive per her report. Zofran is ordered in her treatment plan should she need it in the future. Today, Faslodex 500 mg administered IM in two 250 mg injections to upper/outer gluteal muscles. These were given simultaneously, other RN Ally Singletary. These were done with patient lying prone on a bed. Today she verbalized they felt much better. She rested for a bit on the bed after completed with nocomplaints of pain or nausea. This RN encouraged her to walk as tolerated today. She has no questions or concerns. Per discussion, she would like to have her injections administered in the same manner for her subsequent visits if space permits. Patient has her next appointment scheduled for 03/07. I was supervised by Dr. Delvalle who was present and immediately available in the office suite. CARMEN CALLOWAY RN 02/27/2020 10:16 documented in this encounter Miscellaneous Notes Addendum Note - Danae Vargas - 02/27/2020 1000 EST Encounter addended by: Danae Vargas on: 03/30/2020 13:29 Actions taken: Charge Capture section accepted documented in this encounter Plan of Treatment Upcoming Encounters Date Type Specialty Care Team Description 12/16/2021 Appointment Infusion Therapy 04/15/2022 Office Visit Hematology and Oncology Poppy Felton PA-C 111 [facility], [facility] 2 [place], [place] [phone] (Wo rk) 05/30/2022 Office Visit Surgical Oncology Asa Cameron MD 111 [facility], [facility] 2 [place], [place] [phone] (Wo rk) documented as of this encounter Visit Diagnoses Diagnosis Recurrent cancer of right breast (HCC-CM S) (HCC) - Primary documented in this encounter Administered Medications Inactive Administered Medications - up to 3 most recent administrations Medication Order MAR Action Action Date Dose Rate Site fulvestrant (FASLODEX) injection 500 Given 02/27/2020 9:50 EST 5 00 mg mg 500 mg, intramuscular, NOW X1, 1 dose, On 02/27/20 at 1000, Routine documented in this encounter Orders Medications Ordered That Might Not Have Count Last Ord ered Date First Ordered Date Been Administered fulvestrant (FASLODEX) injection 500 mg 1 02/26/19 21 ondansetron (ZOFRAN-ODT) disintegrating 1 02/26/19 21 tablet 4 mg Appointment Requests Count Last Ordered Date First Ord ered Date ONCBCN INFUSION APPOINTMENT REQUEST - 1 02/27/2020 CALCULATED documented in this encounter Care Teams Electric Meter Repairer Relationship Specialty Start Date End Date Filomena Ochoa PA-C PCP - General 03/02/18 [address] [place] [phone] documented as of this encounter
--- OUTSIDE RECORDS SUMMARY | 2021-11-29 00:25 | XMS_ITS | Encounter Summary ---
:[address] [facility] Address [address] [place] [address] Care Team Providers Name Role Phone Filomena Ochoa PA-C Primary Care Provider [phone] Encounter Details Date Type Department Care Team Description 02/13/2020 Orders Only [facility] Cancer Center Ildefonso Keating RN Recurrent cancer of Hematology & Oncology 111 [facility] ([facility]) (Primary [address] [place] [address] Dx) [place], [place] [phone] Social History Tobacco Use Types Packs/Day Years [...] and Oncology Poppy Felton PA-C [address] [phone] (Wo rk) 05/30/2022 Office Visit Surgical Oncology Asa Cameron MD [address] [phone] (Wo rk) documented as of this encounter Visit Diagnoses Diagnosis Recurrent cancer of right breast (HCC-CM S) (HCC) - Primary documented in this encounter Orders Appointment Requests Count Last Ordered Date First Ord ered Date ONCBCN CLINIC APPOINTMENT REQUEST 3 05/24/2020 02/13/2020 ONCBCN INFUSION APPOINTMENT REQUEST - 2 05/09/2020 04/06/2020 CALCULATED documented in this encounter Care Teams Social Media Job Titles Relationship Specialty Start Date End Date Filomena Ochoa PA-C PCP - General 03/02/18 2 [place] [phone] documented as of this encounter
--- OUTSIDE RECORDS SUMMARY | 2021-11-29 00:25 | XMS_ITS | Encounter Summary ---
:1970 Author Organization [facility] Address [address] [place] [address] Care Team Providers Name Role Phone Filomena Ochoa PA-C Primary Care Provider [phone] Encounter Details Date Type Department Care Team Description 04/02/2020 Ancillary Procedure [facility] Surgical Oncology - Main [address] [address] Social History Tobacco Use Types [...] Oncology Poppy Felton PA-C 111 [facility], [facility] 2 [place], [place] [phone] (Wo rk) 05/30/2022 Office Visit Surgical Oncology Asa Cameron MD [address] [phone] (Wo rk) documented as of this encounter Procedures Procedure Name Priority Date/Time Associated Diagnosis Comme nts [facility] BREAST - Routine 04/02/2020 16:37 Results for this [facility] EST procedure are in ONLY the results section. documented in this encounter Results [facility] BREAST - BREAST CARE CENTER ONLY (04/02/2020 16:37 EST) Specimen Narrative [facility] POINT OF CARE - 04/02/2020 16:[address] This is a non-reportable exam. Performing Organization Address City/State/[facility] Code Phon e Number [facility] POINT OF CARE documented in this encounter Visit Diagnoses Not on filedocumented in this encounter Care Teams Marketing Development Manager Relationship Specialty Start Date End Date Filomena Ochoa PA-C PCP - General 03/02/18 2 [place] [phone] documented as of this encounter
--- OUTSIDE RECORDS SUMMARY | 2021-11-29 00:25 | XMS_ITS | Encounter Summary ---
:1970 Author Organization [facility] Address [address] [place] [address] Care Team Providers Name Role Phone Filomena Ochoa PA-C Primary Care Provider [phone] Encounter Details Date Type Department Care Team Description 05/07/2020 Orders Only [facility] Cancer Center Jessi Pleitez MD PhD Hematology & Oncology - [address] [place] [address] 2 [place], [place] [phone] [place] [phone] (Wo rk) Social History Tobacco Use Types [...] Hematology and Oncology Poppy Felton PA-C 111 [facility], [facility] 2 [place], [place] [phone] (Wo rk) 05/30/2022 Office Visit Surgical Oncology Asa Cameron MD 111 [facility], [facility] 2 [place], [place] [phone] (Wo rk) documented as of this encounter Visit Diagnoses Not on filedocumented in this encounter Care Teams Sales Support Manager Relationship Specialty Start Date End Date Filomena Ochoa PA-C PCP - General 03/02/18 2 [place] [phone] documented as of this encounter
--- OUTSIDE RECORDS SUMMARY | 2021-11-29 00:25 | XMS_ITS | Encounter Summary ---
:[address] [facility] Address [address] [place] [address] Care Team Providers Name Role Phone Filomena Ochoa PA-C Primary Care Provider [phone] Reason for Visit Reason Onset Date Comments Medications Refill 06/21/2020 Encounter Details Date Type Department Care Team Description 06/21/2020 Refill [facility] Adult Nova Ochoa, Medications Refill Primary Care - Hallie GUDINO [address] [place] [address] [place], [place] [phone] (Wo rk) Social History Tobacco Use [...] encounter Miscellaneous Notes Telephone Encounter - Ailyn Sequeira - 06/21/2020 1249 EDT Requested Prescriptions Pending Prescriptions Disp Refills ??? traZODone (DESYREL) 100 mg tablet 30 Tab 1 Sig: Take 1 Tab by mouth at bedtime. [facility] - [place] [address] Confirmed Pharmacy? Yes Patient out of medication? Unknown Last Refill Date: 03.07.20 Refills left? (explain exceptions requiring early refill) No Recent Visits Date Type Provider Dept 08/22/19 Office Visit Filomena Ochoa PA-C [facility] Showing recent visits within past 540 days with a meds authorizing provider and meeting all other requirements Future Appointments No visits were found meeting these conditions. Showing future appointments within next 150 days with a meds authorizing provider and meeting all other requirements Future appointment: Other mychart sent to schedule Ailyn Sequeira 06/21/2020 12:49 documented in this encounter Plan of Treatment Upcoming Encounters Date Type Specialty Care Team Description 12/16/2021 Appointment Infusion Therapy 04/15/2022 Office Visit Hematology and Oncology Poppy Felton PA-C [address] [phone] (Wo rk) 05/30/2022 Office Visit Surgical Oncology Asa Cameron MD [address] [phone] (Wo rk) documented as of this encounter Visit Diagnoses Not on filedocumented in this encounter Care Teams Film Archivist Relationship Specialty Start Date End Date Filomena Ochoa PA-C PCP - General 03/02/18 2 [place] [phone] documented as of this encounter
--- OUTSIDE RECORDS SUMMARY | 2021-11-29 00:25 | XMS_ITS | Encounter Summary ---
:1970 Author Organization [facility] Address [address] [place] [address] Care Team Providers Name Role Phone Filomena Ochoa PA-C Primary Care Provider [phone] Encounter Details Date Type Department Care Team Description 04/02/2020 Travel Social History Tobacco Use Types Packs/Day [...] Hematology and Oncology Poppy Felton PA-C [address] [phone] (Wo rk) 05/30/2022 Office Visit Surgical Oncology Asa Cameron MD [address] [phone] (Wo rk) documented as of this encounter Visit Diagnoses Not on filedocumented in this encounter Care Teams Office Services Manager Relationship Specialty Start Date End Date Filomena Ochoa PA-C PCP - General 03/02/18 2 [place] [phone] documented as of this encounter
--- OUTSIDE RECORDS SUMMARY | 2021-11-29 00:25 | XMS_ITS | Encounter Summary ---
:1970 Author Organization [facility] Address [address] [place] [address] Care Team Providers Name Role Phone Filomena Ochoa PA-C Primary Care Provider [phone] Encounter Details Date Type Department Care Team Description 02/07/2020 Orders Only [facility] Jessi Pleitez MD PhD Hematology & Oncology - [address] [place] [address] Level [address] [place], [place] [phone] [place] [phone] (Wo rk) Social History Tobacco Use Types [...] Hematology and Oncology Poppy Felton PA-C 111 [facility], [facility] 2 [place], [place] [phone] (Wo rk) 05/30/2022 Office Visit Surgical Oncology Asa Cameron MD 111 [facility] 2 [place] [phone] (Wo rk) documented as of this encounter Visit Diagnoses Not on filedocumented in this encounter Care Teams Deck Molder Relationship Specialty Start Date End Date Filomena Ochoa PA-C PCP - General 03/02/18 2 [place] [phone] documented as of this encounter
--- OUTSIDE RECORDS SUMMARY | 2021-11-29 00:26 | XMS_ITS | Encounter Summary ---
:1970 Author Organization [facility] Address [address] [place] [address] Care Team Providers Name Role Phone Filomena Ochoa PA-C Primary Care Provider [phone] Encounter Details Date Type Department Care Team Description 06/20/2019 - Hospital Encounter [facility] 06/21/2019 Radiation Oncology - Main [address] [address] Social History Tobacco Use Types Packs/Day Years [...] Sig Dispensed Refills Start Date End Date albuterol 90 mcg/actuation Inhale 1 Puff as 1 Inhaler 2 02/201806/24/2019 inhaler directed every 4 hours as needed for Wheezing (Before exercise). buPROPion (WELLBUTRIN XL) Take 1 Tab by mouth 90 Tab 3 0 05/18/2019 03/05/2020 300 mg XL daily. tabletIndications: Depression, unspecified depression type conjugated estrogens Place 1 g vaginally 0 201910/19/2019 0.625mg/G (PREMARIN) daily. vaginal cream lisdexamfetamine (VYVANSE) Take 1 Cap by mouth 84 Cap 0 05/18/2019 08/10/2019 40 mg capsule every morning for 84 days. Daily Max: 40 mg LORazepam (ATIVAN) 0.5 mg Take 1 Tab by mouth 30 Tab 1 0 03/16/2018 10/20/2019 tabletIndications: 2 times daily as Episodic mood disorder needed for Anxiety (HCC-CMS) (HCC) (PMS). Use sparingly Daily Max: 1 mg traZODone (DESYREL) 100 mg Take 1 Tab by mouth 90 Tab 3 05/18/2019 03/05/2020 tablet at bedtime. documented as of this encounter Discharge Disposition Disposition Code Departure Means Destination Home or Self Care documented in this encounter Plan of Treatment Upcoming Encounters Date Type Specialty Care Team Description 12/16/2021 Appointment Infusion Therapy 04/15/2022 Office Visit Hematology and Oncology Poppy Felton, PACl 111 [facility], [facility] 2 [place], [place] [phone] (Wo bradford) 05/30/2022 Office Visit Surgical Oncology Asa Cameron MD 111 [facility], [facility] 2 [place] [phone] (Larissa felder) documented as of this encounter Visit Diagnoses Not on filedocumented in this encounter Care Teams Assembler Billiard Table Relationship Specialty Start Date End Date Filomena Ochoa PA-C PCP - General 03/02/18 2 [place] [phone] documented as of this encounter
--- OUTSIDE RECORDS SUMMARY | 2021-11-29 00:26 | XMS_ITS | Encounter Summary ---
:1970 Author Organization [facility] Address [address] [place] [address] Care Team Providers Name Role Phone Filomena Ochoa PA-C Primary Care Provider [phone] Reason for Visit Reason Comments Other Encounter Details Date Type Department Care Team Description 07/08/2019 Refill [facility] Primary Marion Boateng MD Other Care [facility] - [address] [place] [phone] [place] [address] [place] [address] [phone] Social History Tobacco Use Types Packs/Day Years [...] been in contact with No / Unsure 07/07/2019 12:45 EDT someone who was confirmed or suspected [...] this encounter Miscellaneous Notes Telephone Encounter - Jazmine Wisdom, RN - 07/11/2019 1114 EDT Doxy one time dose for tick bite Refused refill documented in this encounter Plan of Treatment Upcoming Encounters Date Type Specialty Care Team Description 12/16/2021 Appointment Infusion Therapy 04/15/2022 Office Visit Hematology and Oncology Poppy Felton PA-C 111 [facility], [facility] 2 [place], [place] [phone] (Wo rk) 05/30/2022 Office Visit Surgical Oncology Asa Cameron MD 111 [facility], [facility] 2 [place], [place] [phone] (Wo rk) documented as of this encounter Visit Diagnoses Not on filedocumented in this encounter Care Teams Account Installation Specialist Relationship Specialty Start Date End Date Filomena Ochoa PA-C PCP - General 03/02/18 2 [place] [phone] documented as of this encounter
--- OUTSIDE RECORDS SUMMARY | 2021-11-29 00:26 | XMS_ITS | Encounter Summary ---
:1970 Author Organization [facility] Address [address] [place] [address] Care Team Providers Name Role Phone Filomena Ochoa PA-C Primary Care Provider [phone] Reason for Visit Reason Comments Cancer Encounter Details Date Type Department Care Team Description 06/24/2019 Radiation Therapy [facility] Neha Vaughn RN Recurrent cancer of Visit Radiation Oncology [address] [place] [address] ([facility]) (Primary [address] [place], [place] Dx) [place] [id number] Social History Tobacco Use Types Packs/Day Years [...] documented as of this encounter Progress Notes Neha Vaughn RN - 06/24/2019 1341 EDT The following information was obtained via telephone. Patient Education Topic: Radiation Therapy Method: Handout and Verbal Taught to: Patient Barriers: None Outcomes: Verbalized Understanding Jia Dow will be receiving radiation therapy treatment and is being seen today for her education session. The encounter diagnosis was Recurrent cancer of right breast ([facility] Assessment: Assessment Completed By: Neha Vaughn RN (06/24/19 1412) Treatment Information Plan for Treatment: Radiation Therapy to the Right Partial Breast Start Date/Time: 06/27/19 Radiation Plan: Right Partial Breast 15 x 267 cGy = 4005 cGy. Chemotherapy Plan: Tamoxifen Transport Plan: Patient will provide her own transportation Education Session Established contact and assessed patient readiness to learn: Yes Reviewed treatment plan, goals and possible acute side effects:Yes Reviewed site specific skin care, anticipated acute side effects and care management of the acute side effects:Yes Physician specific care management reviewed:Yes Learning objective met and will reinforce as needed:Yes Comments: Written patient and family education material provided: Yes Patient Information Alerts reviewed: Yes Allergies reviewed: Yes Cardiac pacemaker: No Implantable defibrillator: No Medication reconciliation completed: Yes Patient Intake form reviewed: Yes Pharmacy confirmed: Yes([facility]. [place], [place]) Smoking Information Current smoker: No If yes, was smoking cessation discussed? Was patient referral initiated? 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 She is s/p mastectomy in 2011, followed by reconstruction. She is here for radiation simulation andeducation. She denies right breast pain and feels that she has healed well from her most recent surgery. Nutrition: Regular diet Pain: Right breast Numeric Pain Level (Scale 1-10): 0 Narcotic: No Psychosocial: Anxious. Feels that she has good support. Working for [employer] Physical Exam: General: Independent with ADLs. Pleasant General Appearance: Appears comfortable, no acute distress Here With: alone Impression: Performance Status: 0-Fully active, able to carry on all pre-disease performance without restriction Plan: Plan: Continue per plan documented in this encounter Plan of Treatment Upcoming Encounters Date Type Specialty Care Team Description 12/16/2021 Appointment Infusion Therapy 04/15/2022 Office Visit Hematology and Oncology Poppy Felton PA-C [address] [phone] (Wo rk) 05/30/2022 Office Visit Surgical Oncology Asa Cameron MD [address] [phone] (Wo rk) documented as of this encounter Visit Diagnoses Diagnosis Recurrent cancer of right breast (HCC-CM S) (HCC) - Primary documented in this encounter Discontinued Medications Medication Sig Discontinue Reason Start Date End Date albuterol 90 Inhale 1 Puff as Patient Stopped Taking 12/24/2018 0 06/24/2019 mcg/actuation inhaler directed every 4 hours as needed for Wheezing (Before exercise). documented as of this encounter Historical Medications This list may reflect changes made after this encounter. Medication Sig Dispensed Refills Start Date End Date UNABLE TO FIND as needed. Med Name: 0 [place] fluticasone propionate Instill 100 mcg into 0 (FLONASE) 50 both nostrils as mcg/actuation nasal needed. spray tamoxifen (NOLVADEX) 10 Take 10 mg by mouth 0 01/30/2020 mg tablet daily. added in this encounter Care Teams Home Care Giver Relationship Specialty Start Date End Date Filomena Ochoa PA-C PCP - General 03/02/18 2 [place] [phone] documented as of this encounter
--- OUTSIDE RECORDS SUMMARY | 2021-11-29 00:26 | XMS_ITS | Encounter Summary ---
:1970 Author Organization [facility] Address [address] [place] [address] Care Team Providers Name Role Phone Filomena Ochoa PA-C Primary Care Provider [phone] Encounter Details Date Type Department Care Team Description 10/19/2019 Travel Social History Tobacco Use Types Packs/Day [...] been in contact with No / Unsure 10/19/2019 8:59 EDT someone who was confirmed or suspected [...] and Oncology Poppy Felton PA-C [address] [phone] (Wo rk) 05/30/2022 Office Visit Surgical Oncology Asa Cameron MD [address] [phone] (Wo rk) documented as of this encounter Visit Diagnoses Not on filedocumented in this encounter Additional Health Concerns Infection Onset Date Last Indicated Resolved Time R/O COVID-19 10/16/2019 10/16/2019 10/21/2019 22:15 EDT documented as of this encounter Care Teams Strategic Solutions Consultant Relationship Specialty Start Date End Date Filomena Ochoa PA-C PCP - General 03/02/18 2 [place] [phone] documented as of this encounter
--- OUTSIDE RECORDS SUMMARY | 2021-11-29 00:26 | XMS_ITS | Encounter Summary ---
:1970 Author Organization [facility] Address [address] [place] [address] Care Team Providers Name Role Phone Filomena Ochoa PA-C Primary Care Provider [phone] Encounter Details Date Type Department Care Team Description 06/24/2019 - Hospital Encounter [facility] 06/25/2019 Radiation Oncology - Main [address] [phone] Social History Tobacco Use Types Packs/Day Years [...] into both nostrils nasal spray as needed. UNABLE TO FIND as needed. Med 0 [...] (PMS). Use sparingly Daily Max: 1 mg tamoxifen (NOLVADEX) 10 mg Take 10 mg by mouth 0 01/30/2020 tablet daily. traZODone (DESYREL) 100 mg Take 1 Tab by mouth 90 Tab 3 05/18/2019 03/05/2020 tablet at bedtime. documented as of this encounter Discharge Disposition Disposition Code Departure Means Destination Home or Self Care documented in this encounter Plan of Treatment Upcoming Encounters Date Type Specialty Care Team Description 12/16/2021 Appointment Infusion Therapy 04/15/2022 Office Visit Hematology and Oncology Poppy Felton PA-C [address] [phone] (Wo rk) 05/30/2022 Office Visit Surgical Oncology Asa Cameron MD [address] [phone] (Wo rk) documented as of this encounter Visit Diagnoses Not on filedocumented in this encounter Care Teams Information Assurance Relationship Specialty Start Date End Date Filomena Ochoa PA-C PCP - General 03/02/18 2 [place] [address] documented as of this encounter
--- OUTSIDE RECORDS SUMMARY | 2021-11-29 00:26 | XMS_ITS | Encounter Summary ---
:1970 Author Organization [facility] Address [address] [place] [address] Care Team Providers Name Role Phone Filomena Ochoa PA-C Primary Care Provider [phone] Encounter Details Date Type Department Care Team Description 04/11/2019 Documentation Visit [facility] Jia Gary RN Surgical Oncology - Main [place] [address] [place] [address] Social History Tobacco Use Types Packs/Day [...] documented as of this encounter Progress Notes Jia Gary RN - 04/11/2019 1143 EST Post-operative followup phone call made. Patients states no questions or concerns at this time. Postoperative appointment date and time reviewed with the patient. Patient has contact information to the clinic if any questions or concerns arise. documented in this encounter Plan of Treatment Upcoming Encounters Date Type Specialty Care Team Description 12/16/2021 Appointment Infusion Therapy 04/15/2022 Office Visit Hematology and Oncology Poppy Felton PA-C [address] [phone] (Wo rk) 05/30/2022 Office Visit Surgical Oncology Asa Cameron MD [address] [phone] (Wo rk) documented as of this encounter Visit Diagnoses Not on filedocumented in this encounter Care Teams Extension Course Counselor Relationship Specialty Start Date End Date Filomena Ochoa PA-C PCP - General 03/02/[address] [place] [phone] documented as of this encounter
--- OUTSIDE RECORDS SUMMARY | 2021-11-29 00:26 | XMS_ITS | Encounter Summary ---
:1970 Author Organization [facility] Address [address] [place] [address] Care Team Providers Name Role Phone Filomena Ochoa PA-C Primary Care Provider [phone] Reason for Visit Reason Onset Date Comments Appointment Related 09/26/2019 09/29/19 Encounter Details Date Type Department Care Team Description 09/26/2019 Telephone [facility] Asa Cameron MD Appointment Related Surgical Oncology - [address] [place] [address] (09/29/19) [facility], [address], [address] [place], [place] [address] [place] [address] [phone] (Wo rk) Social History Tobacco Use [...] Notes Telephone Encounter - Yuliana Nieves - 09/26/2019 1557 EDT Called patient; next available appt with Dr Cameron is in December. Patient opted to keep her 09/29/2019 appt. Yuliana Nieves 09/26/2019 15:58 Telephone Encounter - Brenda Pressley - 09/26/2019 1540 EDT Please call to possibly reschedule 09/29/19 as she is having hare getting a ride for that day. Please call to review other options before reschedling current appointment. documented in this encounter Plan of Treatment Upcoming Encounters Date Type Specialty Care Team Description 12/16/2021 Appointment Infusion Therapy 04/15/2022 Office Visit Hematology and Oncology Poppy Felton PA-C [address] [phone] (Wo rk) 05/30/2022 Office Visit Surgical Oncology Asa Cameron MD [address] [phone] (Wo rk) documented as of this encounter Visit Diagnoses Not on filedocumented in this encounter Care Teams Silk Screen Printer Helper Relationship Specialty Start Date End Date Filomena Ochoa PA-C PCP - General 03/02/18 2 [place] [phone] documented as of this encounter
--- OUTSIDE RECORDS SUMMARY | 2021-11-29 00:26 | XMS_ITS | Encounter Summary ---
:1970 Author Organization [facility] Address [address] [place] [address] Care Team Providers Name Role Phone Filomena Ochoa PA-C Primary Care Provider [phone] Reason for Visit Reason Comments Follow-up Encounter Details Date Type Department Care Team Description 09/29/2019 Office Visit [facility] Asa Cameron MD Routine cancer follow-up visit (Primary Dx); Surgical Oncology - [address] [place] [address] al history of breast cancer [facility] [address] [place] [address] [place], [place] [address] (Wo rk) Social History Tobacco [...] been in contact with No / Unsure 09/29/2019 13:40 EDT someone who was confirmed or suspected to have Coronavirus / COVID-19? documented as of this encounter Last Filed Vital Signs Vital Sign Reading Time Taken Comments Blood Pressure - - Pulse - - Temperature 36.1 ??C (97 ??F) 09/29/2019 1342 EDT Respiratory Rate - - Oxygen Saturation [...] encounter Progress Notes Asa Cameron MD - 09/29/2019 1340 EDT [facility] BREAST CANCER PROGRAM PROGRESS / FOLLOWUP NOTE - 09/29/2019 SUBJECTIVE: The patient is seen in followup for a history of breast cancer. The patient is a 49-year-old woman who had a right breast cancer in 2011. She opted for a right total mastectomy, sentinel node biopsy, and a prophylactic left total mastectomy with bilateral implant reconstructions. Tumor stage was T1cN0. She was on tamoxifen for about 4 years and then stopped because she did not tolerate itwell. The patient had been doing well until this past winter when she was found to have a recurrencein the skin in 1 location near her core needle biopsy site in the upper inner aspect of her right breast. Workup showed no evidence of any distant disease. She underwent local excision of that area. Sub sequently, had radiation just to the local area and has been started on tamoxifen. She is now on 10 mg a day. She is tolerating that okay. She is seen here in routine followup. She has no new complaints. OBJECTIVE: On exam, the patient is well abnormal-appearing without scleral icterus. There are no palpable neck masses, no cervical or supraclavicular lymph nodes are palpable. There are no nodules in the thyroid gland. No carotid bruits or JVD are noted. Lungs are clear to auscultation. Heart has a regular rate and rhythm without S3, S4, or murmurs. Breast exam reveals mastectomies on both right and left sides with the excision site in the upper inner aspect of the right mastectomy site. No other skin changes are noted. Palpation of the right mastectomy site reveals no palpable abnormalities suspicious for recurrence. There are no palpable lymph nodes in the right axilla. The left side has no palpable abnormality suspicious for recurrence. There are no palpable lymph nodes in the left axilla. There were no abdominal masses. No hepato or splenomegaly was noted. DIAGNOSTIC DATA: Ultrasound of the soft tissue of the mastectomy site on the right shows no evidenceof recurrent disease. No abnormal-appearing lymph nodes are seen in the axilla or in the internal mammary area. On the left side, no evidence of recurrent disease is seen in the mastectomy site: There are no abnormal lymph nodes in the internal mammary or axillary region. ASSESSMENT: The patient is without evidence of recurrence. Will plan a followup again in 6 months. Asa Cameron MD / COOPER/WENDY Dictation ID: [id number] cc: Jeancarlos Tinajero MD, [facility], [address] [place] [address] TANIYA Pimentel, [facility] [place] [address] Jessi Pleitez MD, [facility] - Hematology Oncology, [address] [place] [id number] signed by Asa Cameron MD at 09/30/2019 17:07 EDTHAsa sheppard MD - 09/29/2019 1340 EDT This office note has been dictated. documented in this encounter Plan of Treatment Upcoming Encounters Date Type Specialty Care Team Description 12/16/2021 Appointment Infusion Therapy 04/15/2022 Office Visit Hematology and Oncology Poppy Felton PA-C 111 [facility] 2 [place], [place] [phone] (Wo rk) 05/30/2022 Office Visit Surgical Oncology Asa Cameron MD 111 [facility] 2 [place], [place] [phone] (Wo rk) documented as of this encounter Procedures Procedure Name Priority Date/Time Associated Diagnosis Comme nts ORDERS - SCANNED 10/05/2019 11:41 EDT documented in this encounter Visit Diagnoses Diagnosis Routine cancer follow-up visit - Primary Other follow-up examination Personal history of breast cancer Personal history of malignant neoplasm o f breast documented in this encounter Orders Admission Count Last Ordered Date First Ordered Date ORDERS - SCANNED 1 10/06/2019 documented in this encounter Care Teams Territory Manager General Sales Relationship Specialty Start Date End Date Filomena Ochoa PA-C PCP - General 03/02/18 2 [place] [phone] documented as of this encounter
--- OUTSIDE RECORDS SUMMARY | 2021-11-29 00:26 | XMS_ITS | Encounter Summary ---
:1970 Author Organization [facility] Address [address] [place] [address] Care Team Providers Name Role Phone Filomena Ochoa PA-C Primary Care Provider Reason for Visit Reason Comments Breast Cancer Encounter Details Date Type Department Care Team Description 06/29/2019 Radiation Therapy [facility] Cristina Avitia MD Recurrent cancer of Visit Radiation Oncology PhD right [facility] - [address] ([facility]) (Primary [address] [facility]) [facility], [address] [place] [address] Level 2 [place] [phone] Social History Tobacco Use Types Packs/Day Years [...] documented as of this encounter Progress Notes Cristina Avitia MD - 06/29/2019 1103 EDT On Treatment Visit Assessment: Jia Dow is currently receiving radiation therapy treatment and is being seen today for her weekly on treatment visit. There were no encounter diagnoses. Assessment: Assessment Completed By: Cristina Avitia MD (06/29/19 1104) Radiation Therapy: Cumulative RT Dose 801 cGy Daily RT Dose 267 cGy Total RT Planned Dose 4005 cGy Chemotherapy Agent Subjective Note: General: No complaints Pain: right chest wall Numeric Pain Level (Scale 1-10): 0 Physical Exam: General Appearance: Appears comfortable, no acute distress Skin Reaction: none Incision: well healed Seroma Present: No Treatment Related Toxicity: Fatigue: 0-None Pain: 0-None Dermatitis: 0-None Seroma: 0- None Edema: 0-None Fibrosis: 0-None Anorexia: 0-None Weekly Review: Radiation Set-up Imaging Reviewed: Yes Impression: Performance Status: 0-Fully active, able to carry on all pre-disease performance without restriction Disease State: No evidence of disease Treatment Break/Deviation: No Plan: Plan: Continue per plan documented in this encounter Plan of Treatment Upcoming Encounters Date Type Specialty Care Team Description 12/16/2021 Appointment Infusion Therapy 04/15/2022 Office Visit Hematology and Oncology Poppy Felton PA-C 111 [facility], [facility], [facility] 2 [place], [place] [phone] (Wo rk) 05/30/2022 Office Visit Surgical Oncology Asa Cameron MD 111 [facility], [facility], Level 2 [place], [place] [phone] (Wo rk) documented as of this encounter Visit Diagnoses Diagnosis Recurrent cancer of right breast (HCC-CM S) (HCC) - Primary documented in this encounter Care Teams Mobile Equipment Mechanic Relationship Specialty Start Date End Date Filomena Ochoa PA-C PCP - General 03/02/18 2 [place] [phone] documented as of this encounter
--- OUTSIDE RECORDS SUMMARY | 2021-11-29 00:26 | XMS_ITS | Encounter Summary ---
:1970 Author Organization [facility] Address [address] [place] [address] Care Team Providers Name Role Phone Filomena Ochoa PA-C Primary Care Provider [phone] Encounter Details Date Type Department Care Team Description 04/11/2019 Documentation Visit [facility] Jia Gary RN Surgical Oncology - Main [place] [address] [place] [address] Social History Tobacco Use Types Packs/Day [...] as of this encounter Progress Notes Jia Gary, LAMAR - 04/11/2019 1207 EST Date: 04/11/19 Attn: Michelle [facility] Radiology???SEND ESTHER Fax #: [phone] Comments: Please send CT Scan and Bone Scan Images to [facility]???please PUSH images into our system. Please send fax reports to Attn: Dr. Asa Cameron Continuity of Care??? For questions or concerns- please call Jia Gary RN at [phone] Patient: Jia Dow : 74 documented in this encounter Plan of Treatment Upcoming Encounters Date Type Specialty Care Team Description 12/16/2021 Appointment Infusion Therapy 04/15/2022 Office Visit Hematology and Oncology Poppy Felton PA-C 111 [facility], [facility] 2 [place], [place] [phone] (Wo rk) 05/30/2022 Office Visit Surgical Oncology Asa Cameron MD 111 [facility], [facility] 2 [place], [place] [phone] (Wo rk) documented as of this encounter Visit Diagnoses Not on filedocumented in this encounter Care Teams Piling Cutter Relationship Specialty Start Date End Date Filomena Ochoa PA-C PCP - General 03/02/18 2 [place] [phone] documented as of this encounter
--- OUTSIDE RECORDS SUMMARY | 2021-11-29 00:26 | XMS_ITS | Encounter Summary ---
:1970 Author Organization [facility] Address [address] [place] [address] Care Team Providers Name Role Phone Filomena Ochoa PA-C Primary Care Provider [phone] Reason for Visit Reason Onset Date Comments Medications Refill 07/08/2019 Encounter Details Date Type Department Care Team Description 07/08/2019 Telephone [facility] Adult Nova Ochoa, Medications Refill Primary Care - Hallie GUDINO [address] [place] [address] [place], [place] [phone] (Wo rk) Social History Tobacco Use [...] Refills Start Date End Date albuterol 90 Inhale 1 Puff as 1 Inhaler 2 07/08/20192019 mcg/actuation inhaler directed every 4 hours as needed for Wheezing (Before exercise). documented in this encounter Miscellaneous Notes Telephone Encounter - Eva Harrison RN - 07/08/2019 1147 EDT Will refill Telephone Encounter - Filomena Sequeira - 07/08/2019 1139 EDT albuterol 90 mcg/actuation inhaler [id number] - [place] - [address] [address] Confirmed Pharmacy? Yes Patient out of medication? Yes: Needs Refill Now Last Refill Date: 12.24.18 Refills left? (explain exceptions requiring early refill) No Recent Visits Date Type Provider Dept 12/24/18 Office Visit Dustin Fitzpatrick MD [facility] 10/15/18 Office Visit Jia Minor PA-C [facility] 03/15/18 Office Visit Filomena Ochoa PA-C [facility] Showing recent visits within past 540 days with a meds authorizing provider and meeting all other requirements Future Appointments Date Type Provider Dept 08/22/19 Appointment Filomena Ochoa PA-C [facility] Showing future appointments within next 150 days with a meds authorizing provider and meeting all other requirements Future appointment: Scheduled Today. Filomena Sequeira 07/08/2019 11:39 documented in this encounter Plan of Treatment Upcoming Encounters Date Type Specialty Care Team Description 12/16/2021 Appointment Infusion Therapy 04/15/2022 Office Visit Hematology and Oncology Poppy Felton PA-C 111 [facility] 2 [place], [place] [phone] (Wo rk) 05/30/2022 Office Visit Surgical Oncology Asa Cameron MD [address] [phone] (Wo rk) documented as of this encounter Visit Diagnoses Not on filedocumented in this encounter Care Teams Help Desk Coordinator Relationship Specialty Start Date End Date Filomena Ochoa PA-C PCP - General 03/02/18 2 [place] [phone] documented as of this encounter
--- OUTSIDE RECORDS SUMMARY | 2021-11-29 00:26 | XMS_ITS | Encounter Summary ---
:1970 Author Organization [facility] Address [address] [place] [address] Care Team Providers Name Role Phone Filomena Ochoa PA-C Primary Care Provider Encounter Details Date Type Department Care Team Description 07/21/2019 Documentation Visit [facility] Boaz Avitia MD PhD Radiation Oncology - [address] [place] [address], [address] Level 2 [place], [place] [address] [place] [address] [phone] (Wo rk) Social History Tobacco Use [...] documented as of this encounter Miscellaneous Notes Treatment Summary - Cristina Avitia MD - 07/21/2019 0000 EDT [facility] RADIATION ONCOLOGY TREATMENT SUMMARY - 07/21/2019 DIAGNOSIS: Recurrent right breast cancer. REGION TREATED: Partial right chest wall. SUBJECTIVE: The patient is a 49-year-old woman who was diagnosed in 2011 with an invasive ductal carcinoma, presented as a palpable mass in the upper inner quadrant of the right breast. She underwent total mastectomy and sentinel lymph node biopsy. Pathology revealed a 1.2 cm invasive ductal carcinoma. Margins of excision were negative. The tumor was well-differentiated. Four sentinel lymph nodes were negative. The tumor was ER positive, MT positive, Her-2 negative and there was no LVI. 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 She also underwent contralateral prophylactic mastectomy and she had bilateral implant reconstructions. Oncotype DX was 20. She underwent subsequently endocrine therapy. She was BRCA negative. Recently, she was found to have a palpable nodule on the upper inner part of her reconstructed chest. This was excised with negative margins and measured approximately 1 cm. Pathology revealed well-differentiated invasive ductal carcinoma. She was seen for a second opinion at [facility] by Dr. Jeancarlos Tinajero and Dr. La Reyes. The recommendation from [facility] was because of the patient's anatomy, to proceed with partial chest wall radiation with electrons and in a hypofractionated schedule. TREATMENT SUMMARY: The patient was treated with radiation therapy to a field around the excision scar, between 06/27/2019 and 07/15/2019, to a total dose of 4005 cGy in 15 fractions, 18 elapsed days. Ihad multiple discussions with the patient and she had multiple discussions also at [facility]. The questions that were raised were whether the implant should be removed and for the patient to be treated whole chest wall radiation. The patient opted not to have the implant removed. I also had numerousdiscussions with the patient regarding standard fractionation versus the hypofractionation. The patient ultimately opted for the hypofractionated schedule. She was treated with electrons using 6 MeV of electrons prescribed to 1.6 cm depth. Sixteen fractions of 267 cGy were delivered. TOLERANCE: The patient tolerated treatments well, completed them without any interruptions. She developed minimal erythema. The skin remained intact. The skin remained mobile on the reconstruction. DISPOSITION: I will continue seeing the patient on an as-needed basis. Cristina Avitia MD 01 25 PM - Cristina Avitia MD cn Dictation ID: [id number] cc: Jeancarlos Tinajero MD, [facility] [place] [address] [place] [address] Asa Cameron MD, [facility] - Breast Care Program [address] [place] [address] documented in this encounter Plan of Treatment Upcoming Encounters Date Type Specialty Care Team Description 12/16/2021 Appointment Infusion Therapy 04/15/2022 Office Visit Hematology and Oncology Poppy Felton PA-C [address] [place] [phone] (Wo bradford) 05/30/2022 Office Visit Surgical Oncology Asa Cameron MD [address] [place] [phone] (Wo bradford) documented as of this encounter Visit Diagnoses Not on filedocumented in this encounter Additional Health Concerns Infection Onset Date Last Indicated Resolved Time R/O COVID-19 10/16/2019 10/16/2019 10/21/2019 22:15 EDT documented as of this encounter Care Teams Program Arranger Relationship Specialty Start Date End Date Filomena Ochoa PA-C PCP - General 03/02/18 2 [place] [phone] documented as of this encounter
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
--- OUTSIDE RECORDS SUMMARY | 2021-11-29 00:26 | XMS_ITS | Encounter Summary ---
:1970 Author Organization [facility] Address [address] [place] [address] Care Team Providers Name Role Phone Filomena Ochoa PA-C Primary Care Provider [phone] Reason for Visit Reason Onset Date Comments Medications Refill 08/10/2019 Encounter Details Date Type Department Care Team Description 08/10/2019 Refill [facility] Adult Nova Ochoa, Medications Refill Primary Care - Hallie GUDINO [address] [place] [address] [place] [address] [phone] (Wo rk) Social History Tobacco Use [...] Take 1 Cap by 84 Cap 0 201910/29/2019 40 mg capsule mouth every morning for 84 days. Daily Max: 40 mg documented in this encounter Miscellaneous Notes Telephone Encounter - Filomena Ochoa PA-C - 08/10/2019 1640 EDT Eprescribed. elephone Encounter - Eva Hammond RN - 08/10/2019 1624 EDT Requested Prescriptions Pending Prescriptions Disp Refills ??? lisdexamfetamine (VYVANSE) 40 mg capsule 84 Cap 0 Sig: Take 1 Cap by mouth every morning for 84 days. Daily Max: 40 mg [email or web address] - [place], [place] - [address] [address] Confirmed Pharmacy? Yes Patient out of medication? Unknown Last Refill Date: 05/17 Refills left? (explain exceptions requiring early refill) No Recent Visits Date Type Provider Dept 12/24/18 Office Visit Dustin Fitzpatrick MD [facility] 10/15/18 Office Visit Jia Minor PA-C [facility] 03/15/18 Office Visit Filomena Ochoa PA-C [facility] Showing recent visits within past 540 days with a meds authorizing provider and meeting all other requirements Future Appointments Date Type Provider Dept 08/22/19 Appointment Filomena Ochoa PA-C [facility] Showing future appointments within next 150 days with a meds authorizing provider and meeting all other requirements Future appointment: Already Scheduled Will pend for Filomena HAMMOND RN 08/10/2019 16:24 elephone Encounter - Eva Hammond RN - 08/10/2019 1624 EDT From: Jia Dow Sent: 08/10/2019 14:23 EDT Subject: Medication Renewal Request Jia Dow would like a refill of the following medications: lisdexamfetamine (VYVANSE) 40 mg capsule [Filomena Ochoa PA-C] Preferred pharmacy: [facility] - [address] documented in this encounter Plan of Treatment Upcoming Encounters Date Type Specialty Care Team Description 12/16/2021 Appointment Infusion Therapy 04/15/2022 Office Visit Hematology and Oncology Poppy Felton PA-C [address] [phone] (Wo rk) 05/30/2022 Office Visit Surgical Oncology Asa Cameron MD [address] [phone] (Wo rk) documented as of this encounter Visit Diagnoses Not on filedocumented in this encounter Discontinued Medications Medication Sig Discontinue Reason Start Date End Date lisdexamfetamine (VYVANSE) Take 1 Cap by Reorder 05/18/2019 08/10/2019 40 mg capsule mouth every morning for 84 days. Daily Max: 40 mg documented as of this encounter Additional Health Concerns Infection Onset Date Last Indicated Resolved Time R/O COVID-19 10/16/2019 10/16/2019 10/21/2019 22:15 EDT documented as of this encounter Care Teams Boiler Maker Relationship Specialty Start Date End Date Filomena Ochoa PA-C PCP - General 03/02/18 2 [place] [phone] documented as of this encounter
--- OUTSIDE RECORDS SUMMARY | 2021-11-29 00:26 | XMS_ITS | Encounter Summary ---
:[address] [facility] Address [address] [place] [address] Care Team Providers Name Role Phone Filomena Ochoa PA-C Primary Care Provider [phone] Encounter Details Date Type Department Care Team Description 09/29/2019 Travel Social History Tobacco Use Types Packs/Day [...] Hematology and Oncology Poppy Felton PA-C [address] [phone] (Wo rk) 05/30/2022 Office Visit Surgical Oncology Asa Cameron MD [address] [phone] (Wo rk) documented as of this encounter Visit Diagnoses Not on filedocumented in this encounter Care Teams Publisher Assistant Relationship Specialty Start Date End Date Filomena Ochoa PA-C PCP - General 03/02/18 2 [place] [phone] documented as of this encounter
--- OUTSIDE RECORDS SUMMARY | 2021-11-29 00:26 | XMS_ITS | Encounter Summary ---
:[address] [facility] Address [address] [place] [address] Care Team Providers Name Role Phone Filomena Ochoa PA-C Primary Care Provider [phone] Encounter Details Date Type Department Care Team Description 06/27/2019 Documentation Visit [facility] Thang Vaughn, RN Radiation Oncology - [address] [place], [place] [phone] [place] [address] Social History Tobacco Use Types Packs/Day Years [...] as of this encounter Progress Notes Neha Vaughn, RN - 06/27/2019 0920 EDT Jia Dow was seen following her radiation therapy this morning. Today was her first treatment. She denies questions or concerns. She denies right breast pain. She was given samples of Aquaphor and skin care was discussed. Jia has agreed to stop taking Brian's Wort during her radiation therapy as it can increase her skin reaction. documented in this encounter Plan of Treatment Upcoming Encounters Date Type Specialty Care Team Description 12/16/2021 Appointment Infusion Therapy 04/15/2022 Office Visit Hematology and Oncology Poppy Felton PA-C [address] [phone] (Wo rk) 05/30/2022 Office Visit Surgical Oncology Asa Cameron MD 111 [facility] 2 [place], [place] [phone] (Wo rk) documented as of this encounter Visit Diagnoses Not on filedocumented in this encounter Care Teams Assistant Restaurant General Manager Relationship Specialty Start Date End Date Filomena Ochoa PA-C PCP - General 03/02/18 2 [place] [phone] documented as of this encounter
--- OUTSIDE RECORDS SUMMARY | 2021-11-29 00:26 | XMS_ITS | Encounter Summary ---
:1970 Author Organization [facility] Address [address] [place] [address] Care Team Providers Name Role Phone Filomena Ochoa PA-C Primary Care Provider [phone] Reason for Visit Reason Onset Date Comments Insect Bite 09/09/2019 bee stings Encounter Details Date Type Department Care Team Description 09/09/2019 Telephone [facility] Filomena Ochoa ct Bite (bee Adult Primary Care - SHAHAB Wolf stings) Hallie [address] [place] [phone] Social History Tobacco Use Types Packs/Day [...] encounter Miscellaneous Notes Telephone Encounter - Ailyn Maciel RN - 09/09/2019 1309 EDT Returned call to Jia who reports she has several bee stings; no concerns of healing or infection and no concerns of severe allergic reaction. Bee stings from yesterday. Reports the bee sting on her hand is very itchy and she's asking what she can take to help with this. She's tried benadryl with little relief. Encouraged oral benadryl as directed along with topical hydrocortisone cream to the affected area. Patient verbalized understanding with no barriers to learning and agrees with plan of care. Aware to call back with any concerns of healing or other questions/concerns. elephone Encounter - Cristiane Bautista - 09/09/2019 1136 EDT Reason for Call: Insect Bite (bee stings) Summary/Symptoms: pt says she got stung by bees on her hand, head & the back of her shoulder. She say she is having a lot of localized swelling, no problems breathing. Pt has questions regarding antihistamines. Onset and Duration: Thu evening Does the patient have a computer, laptop or smart phone with high speed & video capability? Yes If so, would they be interested in doing a video visit via Zoom? Yes Appointment Offered? No Cristiane Bautista 09/09/2019 11:37 documented in this encounter Plan of Treatment Upcoming Encounters Date Type Specialty Care Team Description 12/16/2021 Appointment Infusion Therapy 04/15/2022 Office Visit Hematology and Oncology Poppy Felton PA-C 111 [facility], [facility] 2 [place], [place] [phone] (Wo rk) 05/30/2022 Office Visit Surgical Oncology Asa Cameron MD 111 [facility], [facility] 2 [place], [place] [phone] (Wo rk) documented as of this encounter Visit Diagnoses Not on filedocumented in this encounter Care Teams Clinical Faculty Relationship Specialty Start Date End Date Filomena Ochoa PA-C PCP - General 03/02/18 2 [place] [phone] documented as of this encounter
--- OUTSIDE RECORDS SUMMARY | 2021-11-29 00:26 | XMS_ITS | Encounter Summary ---
:1970 Author Organization [facility] Address [address] [place] [address] Care Team Providers Name Role Phone Filomena Ochoa PA-C Primary Care Provider Reason for Visit Reason Onset Date Comments Follow-up 07/07/2019 Encounter Details Date Type Department Care Team Description 07/07/2019 Telephone [facility] Neha Vaughn RN Follow-up Radiation Oncology - Main [address] [place], [place] [address] [place] [address] Social History Tobacco Use Types Packs/Day Years [...] this encounter Miscellaneous Notes Telephone Encounter - Neha Vaughn RN - 07/07/2019 1216 EDT Jia Dow is tolerating her radiation therapy well. She has faint erythema throughout the treatment area. She is using Aquaphor to moisturize the right breast. She has no pain and no change in energy level. documented in this encounter Plan of Treatment Upcoming Encounters Date Type Specialty Care Team Description 12/16/2021 Appointment Infusion Therapy 04/15/2022 Office Visit Hematology and Oncology Poppy Felton PA-C [address] [phone] (Wo rk) 05/30/2022 Office Visit Surgical Oncology Asa Cameron MD [address] [phone] (Wo rk) documented as of this encounter Visit Diagnoses Not on filedocumented in this encounter Care Teams Sprinkler Worker Relationship Specialty Start Date End Date Filomena Ochoa PA-C PCP - General 03/02/18 2 [place] [phone] documented as of this encounter
--- OUTSIDE RECORDS SUMMARY | 2021-11-29 00:26 | XMS_ITS | Encounter Summary ---
:1970 Author Organization [facility] Address [address] [place] [address] Care Team Providers Name Role Phone Filomena Ochoa PA-C Primary Care Provider [phone] Encounter Details Date Type Department Care Team Description 04/14/2019 Travel Social History Tobacco Use Types Packs/Day [...] Hematology and Oncology Poppy Felton PA-C [address] [phone] (Wo rk) 05/30/2022 Office Visit Surgical Oncology Asa Cameron MD [address] [phone] (Wo rk) documented as of this encounter Visit Diagnoses Not on filedocumented in this encounter Care Teams Photography Intern Relationship Specialty Start Date End Date Filomena Ochoa PA-C PCP - General 03/02/18 2 [place] [phone] documented as of this encounter
--- OUTSIDE RECORDS SUMMARY | 2021-11-29 00:26 | XMS_ITS | Encounter Summary ---
:1970 Author Organization [facility] Address [address] [place] [address] Care Team Providers Name Role Phone Filomena Ochoa PA-C Primary Care Provider [phone] Encounter Details Date Type Department Care Team Description 10/19/2019 Phlebotomy Only [facility] 2 Certified Meeting Professional, [facility] Lipid screening Phlebotomy Phlebotomy (Primary Dx) [address] [place] [address] Social History Tobacco Use Types [...] Hematology and Oncology Poppy Felton PA-C 111 [facility], [facility] 2 [place], [place] [phone] (Wo rk) 05/30/2022 Office Visit Surgical Oncology Asa Cameron MD [address] [phone] (Wo rk) documented as of this encounter Procedures Procedure Name Priority Date/Time Associated Diagnosis Comme nts LIPID PROFILE Routine 10/19/2019 9:14 EDT Lipid screening Resu lts for this (INCLUDES procedure are i n CHOLESTEROL, the results TRIGLYCERIDES, HDL, section. LDL) documented in this encounter Results LIPID PROFILE (INCLUDES CHOLESTEROL, TRIGLYCERIDES, HDL, LDL) (10/19/2019 9:14 EDT) Cholesterol 157 See Note [facility] Comment: mg/dL [facility] Acceptable: ?<200 mg/dL SERVICES Borderline High: 200-239 mg/dL High: ?> or = 240 mg/dL HDL 70 See Note [facility] Comment: mg/dL [facility] Low: ? <40 mg/dL SERVICES Normal: ??40-60 mg/dL High: ?>60 mg/dL LDL, Calculated 71 See Note [facility] Comment: mg/dL [facility] Optimal: ? <100 mg/dL SERVICES Near Optimal: ?100-129 mg/dL Borderline High: 130-159 mg/dL High: ?160-189 mg/dL Very High: ? > or = 190 mg/dL Triglyceride 82 See Note [facility] Comment: mg/dL [facility] Normal: ? <150 mg/dL SERVICE S Borderline High: ??150 - 199 mg/dL High: ? 200 - 499 mg/dL Very High: ?> or = 500 mg/dL Chol/HDL Ratio 2.2Comment: No See Note [facility] reference range [facility] has been SERVICES established for CHOL/HDL ratio. Non HDL Cholesterol 87 See Note [facility] Comment: mg/dL [facility] Desirable: ?<130 mg/dL SERVICES Borderline High: ??130-159 mg/dL High: ? 160-189 mg/dL Very High: ?> or = 190 mg/dL Specimen Blood - Venous blood (substance) Performing Organization Address City/State/ZIP Code Phon e Number [facility] [address] [place] [address] SERVICES documented in this encounter Visit Diagnoses Diagnosis Lipid screening - Primary Screening for lipoid disorders documented in this encounter Additional Health Concerns Infection Onset Date Last Indicated Resolved Time R/O COVID-19 10/16/2019 10/16/2019 10/21/2019 22:15 EDT documented as of this encounter Care Teams Equine Breeder Relationship Specialty Start Date End Date Filomena Ochoa PA-C PCP - General 03/02/18 2 [place] [phone] documented as of this encounter
--- OUTSIDE RECORDS SUMMARY | 2021-11-29 00:26 | XMS_ITS | Encounter Summary ---
:1970 Author Organization [facility] Address [address] [place] [address] Care Team Providers Name Role Phone Filomena Ochoa PA-C Primary Care Provider [phone] Encounter Details Date Type Department Care Team Description 07/07/2019 Travel Social History Tobacco Use Types Packs/Day [...] and Oncology Poppy Felton PA-C [address] [phone] (Wo rk) 05/30/2022 Office Visit Surgical Oncology Asa Cameron MD [address] [phone] (Wo rk) documented as of this encounter Visit Diagnoses Not on filedocumented in this encounter Care Teams Rodent Control Worker Relationship Specialty Start Date End Date Filomena Ochoa PA-C PCP - General 03/02/18 2 [place] [phone] documented as of this encounter
--- OUTSIDE RECORDS SUMMARY | 2021-11-29 00:26 | XMS_ITS | Encounter Summary ---
:1970 Author Organization [facility] Address [address] [place] [address] Care Team Providers Name Role Phone Filomena Ochoa PA-C Primary Care Provider [phone] Encounter Details Date Type Department Care Team Description 07/12/2019 Transcribe Orders [facility] Filomena Ochoa [facility] emigdio Wolf PA-C [address] [place], [place] [address] [place], [place] [phone] Social History Tobacco Use Types Packs/Day [...] and Oncology Poppy Felton PA-C [address] [phone] (Wo rk) 05/30/2022 Office Visit Surgical Oncology Asa Cameron MD [address] [phone] (Wo rk) documented as of this encounter Visit Diagnoses Not on filedocumented in this encounter Care Teams Forest Fire Control Officer Relationship Specialty Start Date End Date Filomena Ochoa PA-C PCP - General 03/02/[address] [place] [phone] documented as of this encounter
--- OUTSIDE RECORDS SUMMARY | 2021-11-29 00:26 | XMS_ITS | Encounter Summary ---
:1970 Author Organization [facility] Address [address] [place] [address] Care Team Providers Name Role Phone Filomena Ochoa PA-C Primary Care Provider [phone] Reason for Visit Reason Onset Date Comments COVID-19 10/13/2019 Encounter Details Date Type Department Care Team Description 10/13/2019 Telephone [facility] Jerrell Munoz, [address] Hallie ROA [place] [facility] [address] [address] [facility] [place], [place] [address] (Wo rk) Social History Tobacco Use Types [...] this encounter Miscellaneous Notes Telephone Encounter - Geena Ponce - 10/13/2019 0906 EDT Called patient to schedule COVID-19 testing. Requested a call back [phone]. This is our 1ST attempt at contacting patient documented in this encounter Plan of Treatment Upcoming Encounters Date Type Specialty Care Team Description 12/16/2021 Appointment Infusion Therapy 04/15/2022 Office Visit Hematology and Oncology Poppy Felton PA-C 111 [facility], [facility] 2 [place], [place] [phone] (Wo rk) 05/30/2022 Office Visit Surgical Oncology Asa Cameron MD 111 [facility] 2 [place], [place] [phone] (Wo rk) documented as of this encounter Visit Diagnoses Not on filedocumented in this encounter Additional Health Concerns Infection Onset Date Last Indicated Resolved Time R/O COVID-19 10/16/2019 10/16/2019 10/21/2019 22:15 EDT documented as of this encounter Care Teams Sampling Theory Teacher Relationship Specialty Start Date End Date Filomena Ochoa PA-C PCP - General 03/02/18 2 [place] [phone] documented as of this encounter
--- OUTSIDE RECORDS SUMMARY | 2021-11-29 00:26 | XMS_ITS | Encounter Summary ---
:1970 Author Organization [facility] Address [address] [place] [address] Care Team Providers Name Role Phone Filomena Ochoa PA-C Primary Care Provider [phone] Reason for Visit Reason Onset Date Comments Medications Refill 05/17/2019 Encounter Details Date Type Department Care Team Description 05/17/2019 Refill [facility] Nova Ochoa, Medications Refill Primary Care - Hallie GUDINO [address] [place] [phone] [place] [address] [phone] (Wo rk) Social History Tobacco Use [...] Take 1 Cap by 84 Cap 0 201908/10/2019 40 mg capsule mouth every morning for 84 days. Daily Max: 40 mg buPROPion (WELLBUTRIN XL) Take 1 Tab by 90 Tab 3 020 03/05/2020 300 mg XL mouth daily. tabletIndications: Depression, unspecified depression type traZODone (DESYREL) 100 mg Take 1 Tab by 90 Tab 3 201903/05/2020 tablet mouth at bedtime. documented in this encounter Miscellaneous Notes Telephone Encounter - Filomena Ochoa PA-C - 05/18/2019 0856 EDT eprescribed to mail order pharmacy. elephone Encounter - Filomena Ochoa PA-C - 05/18/2019 0851 EDT From: Jia Dow Sent: 05/17/2019 23:34 EDT Subject: Medication Renewal Request Jia Dow would like a refill of the following medications: traZODone (DESYREL) 100 mg tablet [Filomena Ochoa PA-C] Patient Comment: Please order 90 day prescription from mail-order. Thank you! buPROPion (WELLBUTRIN XL) 300 mg XL tablet [Filomena Ochoa PA-C] Patient Comment: Please order 90 day prescription from mail-order. Thank you! lisdexamfetamine (VYVANSE) 40 mg capsule [Filomena Ochoa PA-C] Patient Comment: Please order 90 day prescription from mail-order. Thank you! Preferred pharmacy: Other - [facility], [address], [facility] [phone] documented in this encounter Plan of Treatment Upcoming Encounters Date Type Specialty Care Team Description 12/16/2021 Appointment Infusion Therapy 04/15/2022 Office Visit Hematology and Oncology Poppy Felton PA-C [address] [phone] (Wo rk) 05/30/2022 Office Visit Surgical Oncology Asa Cameron MD [address] [phone] (Wo rk) documented as of this encounter Visit Diagnoses Diagnosis Depression, unspecified depression type - Primary documented in this encounter Discontinued Medications Medication Sig Discontinue Reason Start Date End Date traZODone (DESYREL) 100 mg Take 1 Tab by Reorder 03/31/2019 05/17/2019 tablet mouth at bedtime. buPROPion (WELLBUTRIN XL) Take 1 Tab by Reorder 03/31/2019 0 05/17/2019 300 mg XL mouth daily. tabletIndications: Depression, unspecified depression type lisdexamfetamine (VYVANSE) Take 1 Cap by Reorder 05/05/2019 05/17/2019 40 mg capsule mouth every morning for 28 days. Daily Max: 40 mg documented as of this encounter Care Teams Net Software Engineer Relationship Specialty Start Date End Date Filomena Ochoa PA-C PCP - General 03/02/18 2 [place] [phone] documented as of this encounter
--- OUTSIDE RECORDS SUMMARY | 2021-11-29 00:26 | XMS_ITS | Encounter Summary ---
:1970 Author Organization [facility] Address [address] [place] [address] Care Team Providers Name Role Phone Filomena Ochoa PA-C Primary Care Provider [phone] Encounter Details Date Type Department Care Team Description 10/16/2019 Phlebotomy Only [facility] - Pre- procedure lab exam DESIRAEREMBERTO ALBA MOBILE (Primary Dx) [address] [place] [address] Social History Tobacco Use Types Packs/Day Years [...] Hematology and Oncology Poppy Felton, SHAHAB 111 [facility], [facility] 2 [place], [place] [phone] (Wo rk) 05/30/2022 Office Visit Surgical Oncology Asa Cameron MD [address] [phone] (Wo rk) documented as of this encounter Procedures Procedure Name Priority Date/Time Associated Comments Diagnosis DO NOT ORDER Today 10/16/2019 11:41 Pre-procedure lab Result s for this STANDALONE - BROAD EDT exam procedure are in COVID TEST the results section. COVID-19 TESTING Routine 10/16/2019 11:41 Pre-procedure lab Re sults for this EDT exam procedure are i n the results section. documented in this encounter Results DO NOT ORDER STANDALONE - BROAD COVID TEST (10/16/2019 11:41 EDT) COVID-19 rt-PCR NEGATIVE Negative [facility] Result Comment: LABORATORY 2019-novel Coronavirus (2019 -nCoV) not detected by the qRT-PCR assay. Consider testing for other respiratory viruses or re-collecting for 2019-nCoV testing. Note: Optimum timing for peak viral levels du ring infections caused by 20 -nCoV have not been determined. Collection of multiple specimens from the same patient may be necessary to detect the virus. Limitations Positive results are indicat axel of active infection with SARS-CoV-2 but do not rule out bacterial infection or co-infection with other viruses. The agent detected may not be the definite cause of diseas e. In addition, detection of viral RNA may not indicate the presence of infectious virus or that SARS-CoV-2 is the causative agent for clinical symptoms. Negative results do not prec lude SARS-CoV-2 infection and should not be used as the sole basis for patient management decisions. Negative results must be combined with clinical observations, patient his tory, and epidemiological in formation. False negative results may also occur if amplification inhibitors are present in the specimen or if inadequate numbers of organisms are present in the specimen. Op timum specimen types and lisa ing for peak viral levels during infections caused by SARS-CoV-2 have not been fully determined. Collection of multiple specimens (types and time points) from the same patient may be necessary to detect the virus. The test was validated for u se with upper respiratory specimens obtained via nasopharyngeal or oropharyngeal swabs in VTM, UTM, M4, M5, M6, saline, and MTM media. The performance of this test has not be en established for other spe cimens. Specimens collected using other FDA recommended Specimen Collection Materials listed in the FDA COVID-19 [employer] communication (May 19, 2019) are pr ocessed with the caveat that they were not all validated for use with this test and the result must be interpreted in this context. Furthermore, a false negative results may occur if a specimen is improperly collected, transported or handled. If the virus mutates in the RT-PCR target region, SARS-CoV-2 may not be detected or may be detected less predictably. Inhibitors or other types of interference may produce a false negative result. An interference study evaluating the effect of common cold medications was not performed. This test is not FDA-cleared but its performance characteristics were established by our CLIA-certified, CAP-accredited, high complexity laboratory in accordance with CLIA regulations, College of [employer] an Pathologists (CAP) guidel natividad (May 12, 2019), and FDA guidance (Apr 23, 2019). This test is only for use un annabelle the Food and Drug Administration's Emergency Use Authorization. Specimen Swab - Entire nasopharynx (body structur e) Performing Organization Address City/State/ZIP Code Phon e Number [facility] [place] [place] COVID-19 TESTING (10/16/2019 11:41 EDT) COVID-19 rt-PCR NEGATIVE Negative [facility] Result Comment: LABORATORY 2019-novel Coronavirus (2019 -nCoV) not detected by the qRT-PCR assay. Consider testing for other respiratory viruses or re-collecting for 2019-nCoV testing. Note: Optimum timing for peak viral levels du ring infections caused by 20 -nCoV have not been determined. Collection of multiple specimens from the same patient may be necessary to detect the virus. Limitations Positive results are indicat axel of active infection with SARS-CoV-2 but do not rule out bacterial infection or co-infection with other viruses. The agent detected may not be the definite cause of diseas e. In addition, detection of viral RNA may not indicate the presence of infectious virus or that SARS-CoV-2 is the causative agent for clinical symptoms. Negative results do not prec lude SARS-CoV-2 infection and should not be used as the sole basis for patient management decisions. Negative results must be combined with clinical observations, patient his tory, and epidemiological in formation. False negative results may also occur if amplification inhibitors are present in the specimen or if inadequate numbers of organisms are present in the specimen. Op timum specimen types and lisa ing for peak viral levels during infections caused by SARS-CoV-2 have not been fully determined. Collection of multiple specimens (types and time points) from the same patient may be necessary to detect the virus. The test was validated for u se with upper respiratory specimens obtained via nasopharyngeal or oropharyngeal swabs in VTM, UTM, M4, M5, M6, saline, and MTM media. The performance of this test has not be en established for other spe cimens. Specimens collected using other FDA recommended Specimen Collection Materials listed in the FDA COVID-19 [employer] communication (May 19, 2019) are pr ocessed with the caveat that they were not all validated for use with this test and the result must be interpreted in this context. Furthermore, a false negative results may occur if a specimen is improperly collected, transported or handled. If the virus mutates in the RT-PCR target region, SARS-CoV-2 may not be detected or may be detected less predictably. Inhibitors or other types of interference may produce a false negative result. An interference study evaluating the effect of common cold medications was not performed. This test is not FDA-cleared but its performance characteristics were established by our CLIA-certified, CAP-accredited, high complexity laboratory in accordance with CLIA regulations, College of [employer] an Pathologists (CAP) guidel natividad (May 12, 2019), and FDA guidance (Apr 23, 2019). This test is only for use un annabelle the Food and Drug Administration's Emergency Use Authorization. Performing Lab [facility] LABORATORY SERVICES Specimen Swab - Entire nasopharynx (body structur e) Performing Organization Address City/State/ZIP Code Phon e Number [facility] [address] [place] [address] SERVICES [facility] [place] documented in this encounter Visit Diagnoses Diagnosis Pre-procedure lab exam - Primary Pre-procedural laboratory examination documented in this encounter Care Teams [employer] Member Relationship Specialty Start Date End Date Filomena Ochoa PA-C PCP - General 03/02/18 2 [place] [phone] documented as of this encounter
--- OUTSIDE RECORDS SUMMARY | 2021-11-29 00:26 | XMS_ITS | Encounter Summary ---
:1970 Author Organization [facility] Address [address] [place] [address] Care Team Providers Name Role Phone Filomena Ochoa PA-C Primary Care Provider [phone] Encounter Details Date Type Department Care Team Description 09/29/2019 Ancillary Procedure [facility] Surgical Oncology - Main [address] [address] Social History Tobacco Use Types [...] Hematology and Oncology Poppy Felton PAChuyC 111 [facility], [facility] 2 [place], [place] [phone] (Wo rk) 05/30/2022 Office Visit Surgical Oncology Asa Cameron MD [address] [phone] (Wo rk) documented as of this encounter Procedures Procedure Name Priority Date/Time Associated Diagnosis Comme nts [facility] US BREAST - Routine 09/29/2019 14:11 Results for this [facility] EDT procedure are in ONLY the results section. documented in this encounter Results [facility] BRE[facility] - BREAST CARE CENTER ONLY (09/29/2019 14:11 EDT) Specimen Narrative POINT OF CARE [facility] - 09/29/2019 14:11 E DT This is a non-reportable exam. Performing Organization Address City/State/[facility] Code Phon e Number [facility] POINT OF CARE POINT OF CARE [facility] documented in this encounter Visit Diagnoses Not on filedocumented in this encounter Care Teams Sand Temperer Relationship Specialty Start Date End Date Filomena Ochoa PA-C PCP - General 03/02/18 2 [place] [phone] documented as of this encounter
--- OUTSIDE RECORDS SUMMARY | 2021-11-29 00:26 | XMS_ITS | Encounter Summary ---
:1970 Author Organization [facility] Address [address] [place] [address] Care Team Providers Name Role Phone Filomena Ochoa PA-C Primary Care Provider [phone] Encounter Details Date Type Department Care Team Description 07/12/2019 Documentation Visit [facility] Thang Vaughn, RN Radiation Oncology - [address] [place], [place] [address] [place] [address] Social History Tobacco Use Types Packs/Day Years [...] encounter Progress Notes Neha Vaughn RN - 07/12/2019 1214 EDT Jia Dow states she is tolerating radiation therapy well and declined to be seen by the RN today. She will see Dr. Avitia tomorrow. documented in this encounter Plan of Treatment Upcoming Encounters Date Type Specialty Care Team Description 12/16/2021 Appointment Infusion Therapy 04/15/2022 Office Visit Hematology and Oncology Poppy Felton PA-C [address] [phone] (Wo rk) 05/30/2022 Office Visit Surgical Oncology Asa Cameron MD [address] [phone] (Wo rk) documented as of this encounter Visit Diagnoses Not on filedocumented in this encounter Care Teams Colorer Machine Relationship Specialty Start Date End Date Filomena Ochoa PA-C PCP - General 03/02/18 2 [place] [phone] documented as of this encounter
--- OUTSIDE RECORDS SUMMARY | 2021-11-29 00:26 | XMS_ITS | Encounter Summary ---
:1970 Author Organization [facility] Address [address] [place] [address] Care Team Providers Name Role Phone Filomena Ochoa PA-C Primary Care Provider [phone] Reason for Visit Reason Comments Procedure Encounter Details Date Type Department Care Team Description 04/08/2019 Procedure visit [facility] Asa Cameron MD Recurrent breast Surgical Oncology - [address] [place] [address] ([facility]) (Primary [address] [facility]) [place], [place] Pav[facility], Level [id number] [place] [address] [phone] (Wo rk) Social History Tobacco Use [...] Sign Reading Time Taken Comments Blood Pressure 109/73 04/08/2019 0915 EST Pulse 62 04/08/2019 0915 EST Temperature 34.6 ??C (94.3 ??F) 04/08/2019 0831 EST Respiratory Rate 12 04/08/2019 0831 EST Oxygen Saturation - - Inhaled Oxygen [...] making decisions? documented as of this encounter Patient Instructions Patient InstructionsJia Gary RN - 04/08/2019 8:00 EST Surgical Procedures MINOR SURGERY 04/08/2019 ACTIVITY: Avoid lifting and/or straining situations that might stress your incisional area for 3-7 days. Then gradually increase your activity. You may shower on Thursday. WOUND CARE: Your incision is closed with sutures that are absorbable . Apply ice pack to incision for 2-3 days as needed for pain control. Ice can be applied for 10-15 minutes every hour as needed. Dermabond (surgical glue) will flake off on its own in 7-14 days. Steri-strip will fall off in the same time frame. If both still present in 3 weeks and then both can be removed. A small amount of swelling and/or bruising around your incision is normal. DIET: Diet as tolerated. PAIN OR DISCOMFORT: Generally Tylenol, Tylenol Extra Strength or Advil is adequate for pain relief. If you are taking a narcotic pain medicine, it is important that you do NOT DRIVE OR CONSUME ALCOHOLwhile taking this drug. Although you may feel reasonably alert, your reaction time and coordination may be impaired. Any narcotic is best tolerated taken with food. NOTIFY YOUR DOCTOR IF YOU HAVE ANY OF THE FOLLOWING SYMPTOMS: Incision becomes red, hot, swollen. Pain unrelieved by your medication. Persistent or increased bleeding/drainage. Fever greater than 100F (38C). CALL IF YOU HAVE ANY QUESTIONS OR PROBLEMS: Doctor: Asa Cameron MD (15/09) Appointment: See 1st page with appointments. documented in this encounter Progress Notes Jia Gary RN - 04/08/2019 0800 EST [facility] Operative Note PreProcedure Assessment Available: Yes Emla cream applied by patient prior to procedure: No Nursing History Reviewed: Yes Operative Permit Signed: Yes Prep: Betadine Solution 10% Local Anesthetic: 1% Lidocaine 20cc mixed with Sodium Bicarbonate 8.4% 3cc and Marcaine 0.5% 30cc Irrigation: 50,000u Bacitracin in 500cc Normal Saline Operative Note/Findings: Correct site and laterality noted prior to surgical start time: Yes. GoldenMoment observed per [facility] policy. Preop: Recurrent Breast Cancer Skin Right Mastectomy Site Postop: same Procedure: Excision Skin Recurrence Right Breast Cancer Surgeon: Rakesh Anesthesia: Local Nursing Diagnosis: Potential for Anxiety Related to Knowledge Deficit. Expected Outcome: Patient demonstrates decreased anxiety. Provide a quiet relaxed atmosphere, [place] to the environment/explain routines, Encourage patient toverbalize concerns and ask questions, Encourage patient and/or family to participate in decisions affecting care Nursing Diagnosis: Potential for Injury. Expected Outcome: Patient is free of signs and symptoms of perioperative injury. Skin integrity assessment verified, Patient never unattended, Lock stretcher and or table prior to patient transfer, Place electrosurgical dispersive pad on non- compromised skin surface, Prevent pooling of prep solutions, Check skin integrity when drapes/dispersive pad are removed, Maintain sponge, instrument, sharps, miscellaneous counts per policy Transferred to OR by RN via: ambulatory Safety Strap Applied: No Position for Surgery: Supine Positioning Equipment/Accessories: Pillows under head and knees Armboard: No Electrosurgical Unit: # [id number] Electrosurgical Settings: Coag, 15. Cut, 15. Duration of Case: 40 minutes Estimated Blood Loss: minimal Nursing Diagnosis: Potential for infection. Expected Outcome: Patient will remain free of signs/symptoms of infection. All instruments and supplies used on sterile field meet sterility checks, Doors closed for proper air exchange, Room traffic kept at a minimum, No identified breaks in aseptic technique identified during intraoperative care Evaluation: Aseptic Technique Maintained Complications: None Disposition: Home in care of self, and daughter. Drains/Packs/Foreign Materials Retained: None Specimen: Yes Condition: Good The patient tolerated this procedure. Patient was given an ice bag. Wound is dry and intact and dressed with dermabond and steri-strip. Follow up appointment made. Education Flow Sheet: Topics/Methods: Verbal and written instructions were given to the patient on incision and dressing care, activity, pain control, use of ice pack and reasons to call MD. Barriers: No barriers were identified. Who Was Instructed: Patient Outcomes: The patient verbalized understanding. documented in this encounter Procedure Notes Asa Cameron MD - 04/08/2019 0000 EST [facility] CANCER [place] BREAST CANCER PROGRAM OFFICE PROCEDURE - 04/08/2019 PREOPERATIVE DIAGNOSIS: Dermal recurrence of breast cancer, right mastectomy site. POSTOPERATIVE DIAGNOSIS: Dermal recurrence of breast cancer, right mastectomy site. PROCEDURE: Excision dermal recurrence of breast cancer, right mastectomy site. Excision was 1 cm wide x 3 cm long excision with intermediate closure. SURGEON: Asa Cameron MD ANESTHESIA: Local. INDICATIONS: The patient is a 48-year-old woman who had a breast cancer of the right breast diagnosed in 2011. She underwent a total mastectomy with sentinel node biopsy and a prophylactic left total mastectomy with implant reconstructions. Tumor stage was T1cN0. The tumor was well-differentiated. There was some lymphovascular invasion seen on the initial biopsies. She was given hormonal therapy, which she took for about 4 years, but was not tolerating well and then stopped. On routine, she had beennoted to have a small dermal nodule, which eventually got biopsied. It did not change significantly over the past year or so, but the biopsy did show recurrence of a well-differentiated breast cancer. Metastatic workup showed no other evidence of distant disease. The lesion itself was about 6 mm in size. She presents for excision of that area. FINDINGS: On operation, we were able to excise the lesion with a margin of normal-appearing tissue. It measured 1 cm in width and 3 cm in length. We excised all the way down to the underlying pectoralis fascia. NARRATIVE: The patient was brought to the [facility] outpatient surgical suite. Prior to starting the procedure, we confirmed the patient's name and date of , the procedure to be performed, identified the site of the lesion on the right breast area. This area was then prepped and draped in sterile fashion. We mapped out an elliptical incision with the above-noted dimensions. We injected 1% lidocaine with bicarb for local anesthetic. We then excised through the skin and subcutaneous tissues and this fairly superficially down all the way to the underlying pectoralis fascia, which was quite close. We did not have to disrupt the pectoralis muscle itself. Once it was removed, the specimen was marked and s ent to pathology for permanent evaluation. Bleeding was controlled with electrocautery. We irrigatedwith saline and bacitracin solution. Some 0.5% Marcaine was injected into the deep tissue edges for local anesthetic. We closed the subcu layers with interrupted 3-0 Vicryl suture and the skin was closed with a 5-0 Monocryl in a subcuticular fashion. Dermabond and lengthwise Steri-Strips were placed as dressings. The patient was discharged to home in stable condition. Sponge, instrument counts were correct. Blood loss was about 5 mL. Asa Cameron MD 09 21 AM - Asa Cameron MD an Dictation ID: [id number] cc: Cuco MONAHAN, [facility] - Dermatology [address] [facility], [place] [address] Jeancarlos Tinajero MD, [facility] [place] [address] [place] [address] Jessi Pleitez MD, [facility] - Hematology Oncology [address] [place] [address] Kal Blackburn MD, [facility] [place] [address] [place] [address] Filomena MONAHAN, [facility] - [place] [address] documented in this encounter Plan of Treatment Upcoming Encounters Date Type Specialty Care Team Description 12/16/2021 Appointment Infusion Therapy 04/15/2022 Office Visit Hematology and Oncology Poppy Felton, PACl [address] [facility], [facility] [address] [place], [place] [phone] (Wo rk) 05/30/2022 Office Visit Surgical Oncology Asa Cameron MD [address] [facility], [facility] [address] [place] [phone] (Wo rk) documented as of this encounter Procedures Procedure Name Priority Date/Time Associated Diagnosis Comme nts SURGICAL PATHOLOGY Routine 04/08/2019 8:56 EST Recurrent breas t Results for this cancer, right procedure are in ([facility]) the results section. documented in this encounter Results SURGICAL PATHOLOGY (04/08/2019 8:56 EST) Final Diagnosis A. SKIN OF RIGHT BREAST, MASTECTOMY SITE, EXCISI ON: [facility] Electronically - Well differentiated adenoc arcinoma, invasive, ductal with tubular features, within dermis. See comment. CENTER signed by Marika vazquez, - Margins negative for carcinoma. REYNA Coleman MD - Tumor measures 1.0 mm from closest inferior margin. SERVICES on 04/14/2019 at - Prior biopsy site reaction identified. 1104 - No ductal carcinoma in situ identified. - No lymphovascular invasion identified. - No perineural invasion identified. Diagnosis Comment Histologic sections reveal a focus of well-differentated invasive adenocarcinoma, predominantly in the deep dermis with involvement of the superficial dermis adjacent to a recent biopsy reaction. By [facility] MEDICAL nical history, this patient had a recent ? cyst? removed at the site of the original location of her core biopsy for her breast cancer in 2011. The 2012 core biopsies ([id number]) and mastectomy speci CENTER men ([id number]) have been re viewed in correlation with this case. The tumor from the current skin specimen measures 0.4 cm in greatest dimension, however the size of the tumor in the recent skin biopsy LABORATORY (performed outside clinic ) was not indicated on the report, and therefore the exact stage of this lesion is unclear. We have requested to review the previous biopsy, and receipt of the slides is SERVICES still pending. Per outside report, the gross description of the excised cyst measured 6.0 mm in greatest dimension, estrogen and progesterone receptor positive in 95% of tumor cells with strong intensity, and negative HER2 receptor analysis. Given the lobulated, dispers ed foci of tumor in the original mastectomy specimen and the association of the current tumor focus with the original core biopsy site, the current findings most likely repre sent a slow growing persiste nt focus from the original tumor that was not encompassed in the mastectomy. In addition, microscopically there is a very small focus of cystic fat necrosis and given the cli nical impression of a cyst a t this location, this finding would lend support to the theory of residual tumor near the prior biopsy site. However, given a very small focus of residual benign breast tissu e, the current tumor focus c ould represent a new invasive carcinoma arising from residual tissue (post total mastectomy) although there is no DCIS in this specimen to help support that theory. Dr. Adan Hightower, breast pathologist, has reviewed this case in consultation and agrees with the diagnosis rendered. This case was also reviewed at the intradepartmental consultation conference. Microscopic The current tumor shows a No ttingham Combined Histologic Score of 4 (tubular differentiation=1, nuclear pleomorphism= 2, mitosis=1 (actual count: 3 mitosis per 10 hpf) and is classified as well differen [facility] ED[facility] Description tiated. The tumor focus is e ncompassed by the surgical resection margins and measures 1.0 mm from inferior margin and 5.0 mm from superior margin. The tumor invades the superficial dermis but does not i CENTER nvolve the skin appendages o r cutaneous surface as supported by immunohistochemical stains (outlined below). Within the dermis, adjacent to the tumor and bx reaction, there is a small focus of cystic fa L ABORATORY t necrosis. There is no lymp hovascular invasion or perineural invasion identified. Deeper levels have been examined. SERVICES Immunoperoxidase stains were performed on this case to further characterize the lesion. ANTIBODY(CLONE)(BLOCK):RESULT CK7 (RN7, Leica) (A1 and A2) : Negative in epidermis (highlights tumor cells in block A2) CEA Monoclonal (CEA31, Venta na) (A1 and A2): Negative in epidermis and tumor cells NOTE: One or more of the re agents used in immunoperoxidase testing in this case may not have been cleared or approved by the U.S. Food and Drug Administration (FDA). The FDA has determined that such cl earance or approval is not n ecessary. These tests are used for clinical purposes. They should not be regarded as investigational or for research. These reagents' performance characteristics have been de termined by [facility] and/or by the referring laboratory. The positive and negative controls worked appropriately. If immunoperoxidase staining has been performed on alcoh ol fixed cytology specimens, which has not been fully validated, the assays should be interpreted with caution and correlated with clinical data. This laboratory is certified under the Clinical Laborato ry Improvement Amendments of 1988 (CLIA-88) as qualified to perform high complexity clinical laboratory testing. Clinical History Recurrent Breast Cancer [facility] Skin Right Mastectomy CENTER Site LABORATORY SERVICES Attestation By the signature below, [facility] Elec tronically the attending physician CENTER sign ed by Zurdo, certifies that they have LABORATORY All gerardo Coleman MD 1) personally conducted SERVICES on at a gross and/or 1104 microscopic examination of the described specimen(s), and/or personally interpreted the results of laboratory testing of the described specimen(s), and 2) personally rendered or confirmed the above diagnosis. Gross Description A. Received in normal saline labelled with proper patient identification (initials S, A) and excision recurrence breast cancer, skin right breast is an oriented elliptical skin, 2.0 x 1.0 cm and excis [facility] ed to a depth of 0.5 cm. A s radha suture denotes superior and 2 black sutures denote lateral. The skin surface shows a faint area of linear retraction. The margins are inked with blue representing super CENTER ior and black representing i nferior. The specimen is serially sectioned from lateral to medial and entirely submitted as follows: LABOR ORY SERVICES BLOCK CATES A1- lateral tip, reverse en face A2-A3- 4 consecutive central sections A4- medial tip, reverse en face Time removed from patient: 8:55 hours 04/08/2019 Time placed in formalin: 09:00 04/08/2019 Time out of formalin: 01:30 hours 04/09/2019 Eli Shaffer 04/08/2019 14:37 Scanned Images [facility] LABORATORY SERVICES Specimen Tissue - Skin (tissue) specimen (specime n) Performing Organization Address City/State/ZIP Code Phon e Number [facility] LABORATORY [address] [place] [address] SERVICES documented in this encounter Visit Diagnoses Diagnosis Recurrent breast cancer, right (HCC-CMS) (HCC) - Primary documented in this encounter Care Teams Jewelry Enameler Relationship Specialty Start Date End Date Filomena Ochoa PA-C PCP - General 03/02/18 [address] [place] [phone] documented as of this encounter
--- OUTSIDE RECORDS SUMMARY | 2021-11-29 00:26 | XMS_ITS | Encounter Summary ---
:1970 Author Organization [facility] Address [address] [place] [address] Care Team Providers Name Role Phone Filomena Ochoa PA-C Primary Care Provider [phone] Reason for Visit Reason Onset Date Comments Social Work 06/29/2019 Encounter Details Date Type Department Care Team Description 06/29/2019 Telephone [facility] Cancer Center Radiation Oncology Chen Infante Social Work - [facility] [address] [place] [address] Social History Tobacco Use Types [...] this encounter Miscellaneous Notes Telephone Encounter - Street, Chen - 06/30/2019 0914 EDT SOCIAL WORK NOTE: Patient currently undergoing daily radiation. Outreach to patient to introduce therole of social work and complete distress tool. Pt was not available, left a brief VM requesting a return call at her convenience. CHEN STRE[address], MSW documented in this encounter Plan of Treatment Upcoming Encounters Date Type Specialty Care Team Description 12/16/2021 Appointment Infusion Therapy 04/15/2022 Office Visit Hematology and Oncology Poppy Felton PA-C [address] [phone] (Wo rk) 05/30/2022 Office Visit Surgical Oncology Asa Cameron MD [address] [phone] (Wo rk) documented as of this encounter Visit Diagnoses Not on filedocumented in this encounter Care Teams Senior Program Analyst Relationship Specialty Start Date End Date Filomena Ochoa PA-C PCP - General 03/02/18 [address] [place] [phone] documented as of this encounter
--- OUTSIDE RECORDS SUMMARY | 2021-11-29 00:26 | XMS_ITS | Encounter Summary ---
:1970 Author Organization [facility] Address [address] [place] [address] Care Team Providers Name Role Phone Filomena Ochoa PA-C Primary Care Provider [phone] Reason for Visit (Routine) - Receiving Office to Obtain Authorization Specialty Diagnoses / Procedures Referred By Contact Refer red To Contact Procedures Unknown, Provider, [place] OUTSIDE IMAGES Referral ID Status Reason Start Expiration Visits Visits Date Date Requested Authorized [id number] Receiving Office 04/22/2019 1 1 to Obtain Authorization Encounter Details Date Type Department Care Team Description 04/22/2019 Hospital Encounter [facility] Radiology - Main [place] [address] [place], [place] [id number] Social History Tobacco Use Types Packs/Day Years [...] Tab by mouth 30 Tab 1 0 03/31/2019 05/17/2019 300 mg XL daily. tabletIndications: Depression, unspecified depression type conjugated estrogens Place 1 g vaginally 0 201910/19/2019 0.625mg/G (PREMARIN) daily. vaginal cream lisdexamfetamine (VYVANSE) Take 1 Cap by mouth 28 Cap 0 03/31/2019 05/02/2019 30 mg capsule every morning for 28 days. Daily Max: 30 mg LORazepam (ATIVAN) 0.5 mg Take 1 Tab by mouth 30 Tab 1 0 03/16/2018 10/20/2019 tabletIndications: 2 times daily as Episodic mood disorder needed for Anxiety ([facility]) (HCC) (PMS). Use sparingly Daily Max: 1 mg traZODone (DESYREL) 100 mg Take 1 Tab by mouth 30 Tab 1 03/31/2019 05/17/2019 tablet at bedtime. documented as of this encounter Discharge Disposition Disposition Code Departure Means Destination Home or Self Care documented in this encounter Plan of Treatment Upcoming Encounters Date Type Specialty Care Team Description 12/16/2021 Appointment Infusion Therapy 04/15/2022 Office Visit Hematology and Oncology Poppy Felton PA-C [address] [facility], [facility], [facility] [address] [place], [place] [phone] (Wo rk) 05/30/2022 Office Visit Surgical Oncology Asa Cameron MD [address] [facility], [facility], Level [address] [place], [place] [phone] (Wo rk) documented as of this encounter Procedures Procedure Name Priority Date/Time Associated Diagnosis Comme nts CT OUTSIDE IMAGES Routine 04/22/2019 10:32 Result s for this BODY EST procedure are i n the results section. NM OUTSIDE IMAGES Routine 04/22/2019 10:30 Result s for this EST procedure are i n the results section. documented in this encounter Results CT OUTSIDE IMAGES BODY (04/22/2019 10:32 EST) Specimen Narrative [place] - 04/22/2019 10:32 EST This is a non-reportable exam. Performing Organization Address City/State/ZIP Code Phon e Number [place] OUTSIDE IMAGES (04/22/2019 10:30 EST) Specimen Narrative [place] - 04/22/2019 10:30 EST This is a non-reportable exam. Performing Organization Address City/State/[facility] Phon e Number [place] documented in this encounter Visit Diagnoses Not on filedocumented in this encounter Care Teams Buggy Man Relationship Specialty Start Date End Date Filomena Ochoa PA-C PCP - General 03/02/18 [address] [place] [phone] documented as of this encounter
--- OUTSIDE RECORDS SUMMARY | 2021-11-29 00:26 | XMS_ITS | Encounter Summary ---
:1970 Author Organization [facility] Address [address] [place] [address] Care Team Providers Name Role Phone Filomena Ochoa PA-C Primary Care Provider [phone] Reason for Visit Reason Comments New Patient Visit Throat Problems Consult (Routine) - Specialty Report Received Specialty Diagnoses / Procedures Referred By Contact Refer red To Contact Otolaryngology Diagnoses Hoarseness Filomena Ochoa, Wp4 Ent [facility] [place], [place] [id number] [place] [address] Phone: [phone] Referral ID Status Reason Start Expiration Visits Visits Date Date Requested Authorized [id number] Specialty Specialty 08/22/2019 1 1 Report Services Received Required Encounter Details Date Type Department Care Team Description 10/19/2019 Office Visit [facility] Emil Mnuoz Cough (Primary Dx); ENT- [facility] MD Arik Globus pharyngeus; [address] [place] [address] Avenue [phone] [facility], [address] [place] [phone] (Wo rk) Social History Tobacco [...] documented as of this encounter Progress Notes Emil Munoz MD - 10/19/2019 1000 EDT Subjective: Patient ID: Jia Dow is an 49 y.o. female. Chief Complaint Patient presents with ??? New Patient Visit Throat Problems Filomena Ochoa has requested that I see Jia Dow in consultation regarding chronic cough and throat clearing.. HPI Jia Dow is seen today due to difficulties with a chronic cough and throat clearing. She describes symptoms predominantly occurring at times of exercise such as biking, skiing or, more recently,when having to run in the airport to catch a plane. She feels like she will have something stuck in her throat and she cannot seem to clear it. There is some mild throat discomfort but this is intermittent, usually exacerbated by coughing or repetitive throat clearing. She does experience some hoarseness and vocal fatigue with increased voice use. She is able to swallow and has not been coughing up any blood or have any ear pain. She was seen at [facility] several yearsago and was found to be allergic to birch tree pollen but her throat symptoms do not occur seasonally and are more persistent throughout the year. She does not experience nasal congestion, itchy eyes or sneezing fits. She does not have a diagnosis of asthma and an empiric trial with an albuterol inhaler was not beneficial. She denies history of or symptoms of GERD. She does not smoke (she has a sensitivity to smoke which makes her symptoms worse). She maintains good hydration. She has alcohol in moderation 2-3 nights per week. Patient Active Problem List Diagnosis ??? Depression ??? ADHD (attention deficit hyperactivity disorder) ??? Episodic mood disorder (HCC-CMS) ??? Malignant neoplasm of breast (HCC-CMS) ??? Radon exposure ??? Recurrent cancer of right breast (HCC-CMS) ??? Asthma ??? S/P bilateral mastectomy ??? Seasonal allergies Past Medical History: Diagnosis Date ??? Breast cancer (HCC-CMS) 07/2011 ??? Environmental allergies Past Surgical History: Procedure Laterality Date ??? BREAST RECONSTRUCTION ??? HAND TENDON SURGERY ??? MASTECTOMY Family History Problem Relation Age of Onset ??? Cancer Brother thyroid ??? Cancer Maternal Grandmother breast, postmenopausal ??? Pacemaker Mother ??? Thyroid Disease Mother ??? Arrhythmia Father Afib Social Social History Socioeconomic History ??? Marital status: Spouse name: Not on file ??? Number of children: Not on file ??? Years of education: Not on file ??? Highest education level: Not on file Occupational History ??? Not on file Social Needs ??? Financial resource strain: Not on file ??? Food insecurity Worry: Not on file Inability: Not on file ??? Transportation needs Medical: Not on file Non-medical: Not on file Tobacco Use ??? Smoking status: Never Smoker ??? Smokeless tobacco: Never Used Substance and Sexual Activity ??? Alcohol use: Yes Alcohol/week: 2.0 standard drinks Types: 2 Standard drinks or equivalent per week Frequency: 2-3 times a week Drinks per session: 1 or 2 Binge frequency: Never ??? Drug use: Never ??? Sexual activity: Not on file Lifestyle ??? Physical activity Days per week: Not on file Minutes per session: Not on file ??? Stress: Not on file Relationships ??? Social connections Talks on phone: Not on file Gets together: Not on file Attends jainism service: Not on file Active member of club or organization: Not on file Attends meetings of clubs or organizations: Not on file Relationship status: Not on file ??? Intimate partner violence Fear of current or ex partner: Not on file Emotionally abused: Not on file Physically abused: Not on file Forced sexual activity: Not on file Other Topics Concern ??? Not on file Social History Narrative ??? Not on file Outpatient Medications Marked as Taking for the 10/19/19 encounter (Office Visit) with Emil Munoz MD Medication Sig Dispense Refill ??? buPROPion (WELLBUTRIN XL) 300 mg XL tablet Take 1 Tab by mouth daily. 90 Tab 3 ??? fluticasone propionate (FLONASE) 50 mcg/actuation nasal spray Instill 100 mcg into both nostrilsas needed. ??? lisdexamfetamine (VYVANSE) 40 mg capsule Take 1 Cap by mouth every morning for 84 days. Daily Max: 40 mg 84 Cap 0 ??? LORazepam (ATIVAN) 0.5 mg tablet Take 1 Tab by mouth 2 times daily as needed for Anxiety (PMS). Use sparingly Daily Max: 1 mg 30 Tab 1 ??? melatonin 10 mg tablet Take by mouth at bedtime. ??? tamoxifen (NOLVADEX) 10 mg tablet Take 10 mg by mouth daily. ??? traZODone (DESYREL) 100 mg tablet Take 1 Tab by mouth at bedtime. 90 Tab 3 ??? UNABLE TO FIND as needed. Med Name: Brian's Wart No Known Allergies Review of Systems Constitutional: Negative for chills, fever, malaise/fatigue and weight loss. HENT: Negative for congestion, ear pain, hearing loss and sore throat. Eyes: Negative for blurred vision, double vision and photophobia. Respiratory: Negative for cough, hemoptysis, shortness of breath and wheezing. Cardiovascular: Negative for chest pain, palpitations, claudication and leg swelling. Gastrointestinal: Negative for heartburn. Musculoskeletal: Negative for joint pain and myalgias. Skin: Negative for rash. Neurological: Negative for sensory change, focal weakness and headaches. Endo/Heme/Allergies: Negative for environmental allergies. Does not bruise/bleed easily. - See HPI Objective: There were no vitals taken for this visit. Physical Exam Department of Otolaryngology PHYSICAL EXAMINATION CONSTITUTIONAL: VITAL SIGNS: Not reviewed APPEARANCE: The patient appears alert, cooperative, and comfortable. ABILITY TO COMMUNICATE / VOICE: Voice quality: normal. No wheeze or stridor. HEAD AND FACE: INSPECTION: Normal without apparent scars, lesions, or masses. PALPATION: There are no masses or sinus tenderness. SALIVARY GLANDS: Submandibular and Parotid glands are normal bilaterally FACIAL STRENGTH: Intact and symmetrical bilaterally EXTERNAL EAR & NOSE: No external ear or nose deformity noted EYES: EYES: no nystagmus EARS, NOSE, MOUTH AND THROAT: OTOSCOPY: Right external auditory canal: patent and non-inflamed Left external auditory canal: patent and non-inflamed Right tympanic membrane: intact and normally mobile without retraction, perforation or effusion Left tympanic membrane: intact and normally mobile without retraction, perforation or effusion WHISPER/TUNING FORK: Hearing subjectively normal NOSE: normal turbinates and mucosa: septum in midline LIPS, TEETH & GUMS: normal for age ORAL CAVITY & OROPHARYNX: normal HYPOPHARYNX & PHARYNGEAL PETER: See flexible exam report LARYNX: See flexible exam report NASOPHARYNX: See flexible exam report NECK: GENERAL: Supple, no asymmetry or crepitus, trachea midline THYROID: Normal LYMPHATIC: CERVICAL LYMPH NODES: No pathologic cervical lymphadenopathy noted RESPIRATORY: LUNGS: Not examined CARDIOVASCULAR: CARDIOVASCULAR: Not examined NEUROLOGIC: NEUROLOGIC: Normal mood and affect Endoscopy Procedure Note Pre-procedure Diagnosis: Hoarseness / Dysphonia and cough, throat clearing Post-procedure Diagnosis: same Indications: Hoarseness, dysphagia or aspiration - not able to be clearly evaluated by indirect laryngoscopy Evaluation of the larynx and immediate subglottis - unable to be visualized by mirror examination Anesthesia: Cophenylcaine Endoscopy Type: Laryngoscopy using a flexible laryngoscope Procedure Details: With the patient sitting upright in the examining chair informed consent was obtained. The right nostril was topically anesthetized with cotton pledgets. After waiting an appropriate period of time foranesthesia/ vasoconstriction to become effective (if this was applicable), the scope was passed intothe right nostril and the nasopharynx, oropharynx, hypopharynx and larynx were examined. Condition: Patient tolerated procedure well and left the office in a stable condition. Complications: None Findings: Nasopharynx: Normal exam of choanae, eustachian tubes, and adenoids for age Oropharynx: Normal exam of tongue base, tonsils, and posterior pharynx Hypopharynx: Normal piriform sinuses noted, no pooling of secretions Supraglottis: Normal Posterior Commissure: Very mild nonspecific erythema Right True Vocal Fold: Normal Left True Vocal Fold: Normal Vocal Fold Mobility: Normal bilaterally Subglottis is clear No aspiration noted Assessment: Encounter Diagnoses Name Primary? Cough Yes ??? Globus pharyngeus ??? Dysphonia Plan: Chronic cough/throat clearing with intermittent lump in throat sensation and dysphonia. She is most bothered by the the cough need to clear her throat with a sensation of something stuck in her throat that she cannot seem to clear. This tends to occur during times of exercise but, fortunately, she is not having shortness of breath and no difficulty swallowing. We discussed possible etiologies including asthma, allergy and LPR/GERD. Her history and symptoms do not strongly support either of these etiologies and flexible laryngoscopy is unremarkable with exception of mild, nonspecific posterior laryngeal erythema. Previous work-up for asthma and allergies at [facility] was negative for asthma and, while she did have allergies to birch trees, her cough and throat symptoms are not seasonal and she denies associated rhinorrhea, nasal congestion or ocular symptoms. Her symptoms may be suggestive of mild laryngopharyngeal reflux (LPR) and we discussed diet and lifestyle mo difications directed minimizing acid reflux into the throat (including eating late at night before bed) but the evidence for LPR is insufficient at this time to warrant prescribing anti-reflux medication such as omeprazole. She thinks her symptoms may be modestly improved and we will monitor to see how she does over the next several months. She was reassured regarding the absence of any concerning lesions or pathology on careful head and neck examination including flexible laryngoscopy in the officetoday. documented in this encounter Plan of Treatment Upcoming Encounters Date Type Specialty Care Team Description 12/16/2021 Appointment Infusion Therapy 04/15/2022 Office Visit Hematology and Oncology Poppy Felton PA-C [address] [facility], [facility] 2 [place], [place] [phone] (Wo rk) 05/30/2022 Office Visit Surgical Oncology Asa Cameron MD [address] [facility], [facility] 2 [place], [place] [phone] (Wo rk) documented as of this encounter Visit Diagnoses Diagnosis Cough - Primary Globus pharyngeus Gastrointestinal malfunction arising fro m mental factors Dysphonia documented in this encounter Discontinued Medications Medication Sig Discontinue Reason Start Date End Date conjugated estrogens Place 1 g vaginally Therapy completed 03/23/19 20 10/19/2019 0.625mg/G (PREMARIN) daily. vaginal cream albuterol 90 Inhale 1 Puff as Therapy completed 07/08/20192019 mcg/actuation inhaler directed every 4 hours as needed for Wheezing (Before exercise). documented as of this encounter Historical Medications This list may reflect changes made after this encounter. Medication Sig Dispensed Refills Start Date End Date melatonin 10 mg tablet Take by mouth at 0 bedtime. added in this encounter Additional Health Concerns Infection Onset Date Last Indicated Resolved Time R/O COVID-19 10/16/2019 10/16/2019 10/21/2019 22:15 EDT documented as of this encounter Care Teams Compressed Yeast Supervisor Relationship Specialty Start Date End Date Filomena Ochoa PA-C PCP - General 03/02/18 2 [place] [address] documented as of this encounter
--- OUTSIDE RECORDS SUMMARY | 2021-11-29 00:26 | XMS_ITS | Encounter Summary ---
:1970 Author Organization [facility] Address [address] [place] [address] Care Team Providers Name Role Phone Filomena Ochoa PA-C Primary Care Provider [phone] Reason for Visit Reason Comments Breast Cancer Encounter Details Date Type Department Care Team Description 07/06/[address] [facility] Cristina Avitia MD Recurrent cancer of Visit Radiation Oncology PhD right [facility] - [address] ([facility]) (Primary [address] [facility] Dx) [facility], [address] [place] [address] [address] [place] [phone] Social History Tobacco Use Types Packs/Day Years [...] encounter Progress Notes Cristina Avitia MD - 07/06/2019 1011 EDT On Treatment Visit Assessment: Jia Dow is currently receiving radiation therapy treatment and is being seen today for her weekly on treatment visit. The encounter diagnosis was Recurrent cancer of right breast (HCC-CMS). Assessment: Assessment Completed By: Cristina Avitia MD (07/06/19 1012) Radiation Therapy: Cumulative RT Dose 2136 cGy Daily RT Dose 267 cGy Total RT Planned Dose 4005 cGy Chemotherapy Agent Subjective Note: General: No complaints Pain: Right chest wall Numeric Pain Level (Scale 1-10): 0 Physical Exam: General Appearance: Appears comfortable, no acute distress Skin Reaction: erythema Incision: well healed Seroma Present: No Treatment Related Toxicity: Fatigue: 1-Fatigue relieved by rest Pain: 0-None Dermatitis: 1-Faint erythema or dry desquamation Seroma: 0- None Edema: 0-None Fibrosis: 0-None Weekly Review: Radiation Set-up Imaging Reviewed: [...] and Oncology Poppy Felton PA-C [address] [facility], [facility], [facility] 2 [place], [place] [phone] (Wo rk) 05/30/2022 Office Visit Surgical Oncology Asa Cameron MD [address] [facility], [facility], [address] [place], [place] [phone] (Wo rk) documented as of this encounter Visit Diagnoses Diagnosis Recurrent cancer of right breast (HCC-CM S) (HCC) - Primary documented in this encounter Care Teams Rn Occupational Relationship Specialty Start Date End Date Filomena Ochoa PA-C PCP - General 03/02/18 2 [place] [phone] documented as of this encounter
--- OUTSIDE RECORDS SUMMARY | 2021-11-29 00:26 | XMS_ITS | Encounter Summary ---
:1970 Author Organization [facility] Address [address] [place] [address] Care Team Providers Name Role Phone Filomena Ochoa PA-C Primary Care Provider [phone] Reason for Visit Reason Comments Breast Cancer Consult (Routine) - Authorization Not Required Specialty Diagnoses / Procedures Referred By Contact Refer red To Contact Radiation Oncology Diagnoses Recurrent cancer of right breast ([facility]) ([facility]) Asa Cameron MD [facility] [address] [place] [address] [address] [place] [address] Pavilion, Level 2 [place], [place] Fax: [phone] Referral ID Status Reason Start Expiration Visits Visits Date Date Requested Authorized [id number] Authorization Specialty 03/30/2019 1 1 Not Required Services Required Encounter Details Date Type Department Care Team Description 04/14/2019 Initial consult [facility] Cristina Avitia MD Re current cancer of Radiation Oncology PhD right breast - [address] ([facility]) (Primary 111 [facility] Dx) [facility] [address] [address], [place] [address] (Wo rk) Social History Tobacco [...] Sign Reading Time Taken Comments Blood Pressure 107/73 04/14/2019 1356 EST Pulse 80 04/14/2019 1356 EST Temperature 37.1 ??C (98.8 ??F) 04/14/2019 1356 EST Respiratory Rate - - Oxygen Saturation 100% 04/14/2019 1356 EST Inhaled Oxygen Concentration - - Weight 63.3 kg (139 lb 9.6 oz) 04/14/2019 1356 EST Height 168.6 cm (5' 6.38) 04/14/2019 1356 EST Body Mass Index 22.28 04/14/2019 1356 EST documented in this encounter Functional Status [...] encounter Progress Notes Cristina Avitia MD - 04/14/2019 1400 EST Subjective: Patient ID: Jia Dow is an 48 y.o. female. Chief Complaint Patient presents with ??? Breast Cancer Recurrent Right Breast Cancer. HPI The patient is a 48-year-old woman who is being seen at the request of Dr Cameron. The patient's pasthistory is significant for an invasive ductal carcinoma of the right breast diagnosed in 2011. She presented with a palpable mass in the upper inner quadrant of the right breast. The mass seems to be large in relationship to the size of the breast, and she ultimately, therefore, underwent total mastectomy and sentinel lymph node biopsy on 08/14/2011. Pathology revealed a 1.2 cm invasive ductal carcinoma. Margins were negative. The tumor was well-differentiated. Four sentinel lymph nodes were negative. The tumor was ER positive in 90% of the cells, TX positive in 90% of the cells. There was no LVI. There was 1.2 cm DCIS associated with the tumor. She underwent left-sided prophylactic mastectomy, and she had bilateral implant reconstruction. Oncotype DX at that time was 20. The recommendation at [facility] was against chemotherapy. She underwent endocrine therapy for approximately 4 to 4-1/2 years. The patient was then tested, and she was BRCA2 negative. A nodule was detected for approximately 1to 1-1/2 years in the upper inner quadrant of the right breast just above the implant. The assumption was that this was a cyst and it was observed. It slightly increased in size, and therefore was excised by dermatology. Clinically, the nodule measured approximately 1 cm. She underwent an excision. Pathology revealed 6 mm invasive ductal carcinoma, well-differentiated, ER positive, TX positive. Dr Cameron reexcised the area. Pathology reveals well-differentiated adenocarcinoma, ductal with tubular features within the dermis. The margins are negative. The closest margin is 1 mm from the inferior margin. In the reexcision, the tumor measured approximately 4 mm. The patient is being seen today for discussion regarding adjuvant radiation therapy. She has seen Dr Jeancarlos Tinajero at [facility], who recommended radiation followed by endocrine treatment. That was also recommendation from Dr Cameron. The patient is very reluctant to undergo radiation and is being seen today for discussion regarding details of the radiation. Metastatic work up including CT of the chest, abdomen and bone scan are negative. Patient Active Problem List Diagnosis ??? Depression ??? ADHD (attention deficit hyperactivity disorder) ??? Episodic mood disorder (HCC-CMS) ??? Malignant neoplasm of breast (HCC-CMS) ??? Radon exposure ??? Recurrent cancer of right breast (HCC-CMS) Past Medical History: Diagnosis Date ??? Breast cancer (HCC-CMS) 07/2011 Past Surgical History: Procedure Laterality Date ??? BREAST RECONSTRUCTION ??? HAND TENDON SURGERY 1990s ??? MASTECTOMY Family History Problem Relation Age of Onset ??? Cancer Brother thyroid ??? Cancer Maternal Grandmother breast, postmenopausal ??? Pacemaker Mother ??? Arrhythmia Father Afib Social Social History Tobacco Use ??? Smoking status: Never Smoker ??? Smokeless tobacco: Never Used Substance Use Topics ??? Alcohol use: Yes Alcohol/week: 2.0 standard drinks Types: 2 Standard drinks or equivalent per week ??? Drug use: Not on file Current Outpatient Medications on File Prior to Visit Medication Sig Dispense Refill ??? albuterol 90 mcg/actuation inhaler Inhale 1 Puff as directed every 4 hours as needed for Wheezing (Before exercise). (Patient not taking: Reported on 03/30/2019) 1 Inhaler 2 ??? buPROPion (WELLBUTRIN XL) 300 mg XL tablet Take 1 Tab by mouth daily. 30 Tab 1 ??? lisdexamfetamine (VYVANSE) 30 mg capsule Take 1 Cap by mouth every morning for 28 days. Daily Max: 30 mg 28 Cap 0 ??? LORazepam (ATIVAN) 0.5 mg tablet Take 1 Tab by mouth 2 times daily as needed for Anxiety (PMS). Use sparingly Daily Max: 1 mg 30 Tab 1 ??? traZODone (DESYREL) 100 mg tablet Take 1 Tab by mouth at bedtime. 30 Tab 1 No Known Allergies Review of Systems Constitutional: Negative. HENT: Negative. Eyes: Negative. Respiratory: Negative. Cardiovascular: Negative. Gastrointestinal: Negative. Genitourinary: Negative. Musculoskeletal: Negative. Skin: Negative. Neurological: Negative. Endo/Heme/Allergies: Negative. Psychiatric/Behavioral: The patient is nervous/anxious. - See HPI Objective: BP 107/73 Pulse 80 Temp 37.1 ??C (98.8 ??F) (Tympanic) Ht 168.6 cm (66.38) Wt 63.3 kg (139 lb 9.6 oz) LMP 04/07/2019 SpO2 100% BMI 22.28 kg/m?? Pulse: 80 Temp: 37.1 ??C (98.8 ??F) Weight : 63.3 kg (139 lb 9.6 oz) Pain Score: 0 - No pain Physical Exam Constitutional: She is oriented to person, place, and time. She appears well- developed and well-nourished. No distress. HENT: Head: No signs of injury. Eyes: Conjunctivae are normal. No scleral icterus. Pulmonary/Chest: Effort normal and breath sounds normal. Abdominal: Soft. Musculoskeletal: Normal range of motion. She exhibits no edema. Lymphadenopathy: She has no cervical adenopathy. Neurological: She is alert and oriented to person, place, and time. Skin: Skin is warm and dry. Psychiatric: She has a normal mood and affect. Her behavior is normal. Vitals reviewed. There is no supraclavicular, infraclavicular, or axillary lymphadenopathy on either right or left side. There are no suspicious nodularities on either reconstruction. In the upper inner quadrant of theright reconstructed breast, there is a healing local excision scar. Assessment/Plan A 48-year-old woman status post mastectomy and sentinel lymph node biopsy in 2011 for a 1.2 cm invasive ductal carcinoma, well differentiated, ER/TX positive. The patient had a new lesion in the upper inner quadrant of the right breast that was present for approximately a 1 to 1-1/2 years. Pathology reveals an approximately 1 cm well-differentiated invasive ductal carcinoma excised with negative margins. I recommend radiation to decrease the risk of recurrence and improve survival. I discussed with her the indications for radiation. I discussed the daily treatments, treatment planning, and simulation, as well as acute and long-term side effects. I discussed with her the possibility of encapsulation of the implant. There is a 25% to 30% chance that there would be some complication, scar formation around the capsule that would necessitate removal of the implant. The patient is very reluctant and very anxious. She will think about the treatment option. We scheduled her for a tentative simulation. I f she wishes to cancel it, she will call us. Cristina Avitia MD documented in this encounter Plan of Treatment Upcoming Encounters Date Type Specialty Care Team Description 12/16/2021 Appointment Infusion Therapy 04/15/2022 Office Visit Hematology and Oncology Poppy Felton PA-C 111 [facility] 2 [place], [place] [phone] (Wo rk) 05/30/2022 Office Visit Surgical Oncology Asa Cameron MD 111 [facility], [facility] 2 [place], [place] [phone] (Wo rk) documented as of this encounter Visit Diagnoses Diagnosis Recurrent cancer of right breast (HCC-CM S) (HCC) - Primary documented in this encounter Care Teams Stroke Coordinator Relationship Specialty Start Date End Date Filomena Ochoa PA-C PCP - General 03/02/18 2 [place] [phone] documented as of this encounter
--- OUTSIDE RECORDS SUMMARY | 2021-11-29 00:26 | XMS_ITS | Encounter Summary ---
:1970 Author Organization [facility] Address [address] [place] [address] Care Team Providers Name Role Phone Filomena Ochoa PA-C Primary Care Provider [phone] Reason for Visit Reason Onset Date Comments Appointment Related 09/20/2019 Referral Request 09/20/2019 Encounter Details Date Type Department Care Team Description 09/20/2019 Telephone [facility] Filomena Ochoa intment Related; Adult Primary Care - [facility] Wolf Referral Request [place] [address] [place] [phone] Social History Tobacco Use Types Packs/Day [...] Notes Telephone Encounter - Ailyn Sequeira - 09/22/2019 09 EDT Pt has not returned calls from Ortho as well as my calls to schedule, closing this referral for now.If we hear back from the pt we can reopen the referral . elephone Encounter - Ailyn Sequeira - 09/20/2019 0907 EDT Filomena referred this pt to Ortho for Dupuytren contracture. The pt has not returned calls from them to schedule. Left msg/sent Mychart for pt to call - ?does she want to schedule? documented in this encounter Plan of Treatment Upcoming Encounters Date Type Specialty Care Team Description 12/16/2021 Appointment Infusion Therapy 04/15/2022 Office Visit Hematology and Oncology Poppy Felton PA-C [address] [facility], [facility] 2 [place], [place] [phone] (Wo rk) 05/30/2022 Office Visit Surgical Oncology Asa Cameron MD [address] [facility], [facility] 2 [place], [place] [phone] (Wo rk) documented as of this encounter Visit Diagnoses Not on filedocumented in this encounter Care Teams Coder Relationship Specialty Start Date End Date Filomena Ochoa PA-C PCP - General 03/02/18 2 [place] [phone] documented as of this encounter
--- OUTSIDE RECORDS SUMMARY | 2021-11-29 00:26 | XMS_ITS | Encounter Summary ---
:1970 Author Organization [facility] Address [address] [place] [address] Care Team Providers Name Role Phone Filomena Ochoa PA-C Primary Care Provider [phone] Reason for Visit Reason Onset Date Comments Patient Education 06/22/2019 Encounter Details Date Type Department Care Team Description 06/22/2019 Telephone [facility] Neha Vaughn RN Patient Education Radiation Oncology - [address] [place] [phone] [place] [address] Social History Tobacco Use Types Packs/Day Years [...] Telephone Encounter - Neha Vaughn RN - 06/22/2019 1309 EDT A phone call was placed to Jia Dow to provide her with patient education regarding her upcoming radiation therapy. No answer, message was left to contact the Radiation Oncology Department. documented in this encounter Plan of Treatment Upcoming Encounters Date Type Specialty Care Team Description 12/16/2021 Appointment Infusion Therapy 04/15/2022 Office Visit Hematology and Oncology Poppy Felton PA-C [address] [phone] (Wo rk) 05/30/2022 Office Visit Surgical Oncology Asa Cameron MD [address] [phone] (Wo rk) documented as of this encounter Visit Diagnoses Not on filedocumented in this encounter Care Teams [employer] Remover Relationship Specialty Start Date End Date Filomena Ochoa PA-C PCP - General 03/02/18 2 [place] [phone] documented as of this encounter
--- OUTSIDE RECORDS SUMMARY | 2021-11-29 00:26 | XMS_ITS | Encounter Summary ---
:[address] [facility] Address [address] [place] [address] Care Team Providers Name Role Phone Filomena Ochoa PA-C Primary Care Provider [phone] Reason for Visit Reason Comments Breast Cancer Encounter Details Date Type Department Care Team Description 07/13/2019 Radiation Therapy [facility] Cristina Avitia MD Recurrent cancer of Visit Radiation Oncology PhD right [facility] - [address] ([facility]) (Primary 111 [facility] Dx) [facility], [address] [place] [address] Level [address] [place] [phone] Social History Tobacco Use Types Packs/Day Years [...] encounter Progress Notes Cristina Avitia MD - 07/13/2019 1037 EDT On Treatment Visit Assessment: Jia Dow is currently receiving radiation therapy treatment and is being seen today for her weekly on treatment visit. The encounter diagnosis was Recurrent cancer of right breast ([facility]). Assessment: Assessment Completed By: Cristina Avitia MD (07/13/19 1037) Radiation Therapy: Cumulative RT Dose 3471 cGy Daily RT Dose 267 cGy Total RT Planned Dose 4005 cGy Chemotherapy Agent None Subjective Note: General: Fatigue Pain: rigtht chest wall Numeric Pain Level (Scale 1-10): [...] evidence of disease Treatment Break/Deviation: No Plan: Plan Comment: Finishes Thursday. Has minimal skin changes. Nursing will call in one week, and pt will return to see me on an as needed basis. documented in this encounter Plan of Treatment Upcoming Encounters Date Type Specialty Care Team Description 12/16/2021 Appointment Infusion Therapy 04/15/2022 Office Visit Hematology and Oncology Poppy Felton PA-C 111 [facility] 2 [place], [place] [phone] (Wo rk) 05/30/2022 Office Visit Surgical Oncology Asa Cameron MD 111 [facility] 2 [place], [place] [phone] (Wo rk) documented as of this encounter Visit Diagnoses Diagnosis Recurrent cancer of right breast (HCC-CM S) (HCC) - Primary documented in this encounter Care Teams Sales And Marketing Analyst Relationship Specialty Start Date End Date Filomena Ochoa PA-C PCP - General 03/02/[address] [place] [phone] documented as of this encounter
--- OUTSIDE RECORDS SUMMARY | 2021-11-29 00:26 | XMS_ITS | Encounter Summary ---
:1970 Author Organization [facility] Address [address] [place] [address] Care Team Providers Name Role Phone Filomena Ochoa PA-C Primary Care Provider [phone] Reason for Visit Reason Onset Date Comments Follow-up 07/21/2019 Encounter Details Date Type Department Care Team Description 07/21/2019 Telephone [facility] Neha Vaughn RN Follow-up Radiation Oncology - Main [address] [place], [place] [phone] [place] [address] Social History Tobacco Use Types Packs/Day Years [...] encounter Miscellaneous Notes Telephone Encounter - Neha Vaughn, RN - 07/21/2019 1134 EDT Jia Dow completed her radiation therapy to her right breast on 07/15/2019, she received 4005 cGy. Follow-up phone call was made. No answer, message was left. Jia Dow was instructed to call Radiation Oncology with any questions or concerns. documented in this encounter Plan of Treatment Upcoming Encounters Date Type Specialty Care Team Description 12/16/2021 Appointment Infusion Therapy 04/15/2022 Office Visit Hematology and Oncology Poppy Felton PA-C 111 [facility] 2 [place], [place] [phone] (Wo rk) 05/30/2022 Office Visit Surgical Oncology Asa Cameron MD 111 [facility] 2 [place], [place] [phone] (Wo rk) documented as of this encounter Visit Diagnoses Not on filedocumented in this encounter Care Teams Street Car Inspector Relationship Specialty Start Date End Date Filomena Ochoa PA-C PCP - General 03/02/[address] [place] [phone] documented as of this encounter
--- OUTSIDE RECORDS SUMMARY | 2021-11-29 00:26 | XMS_ITS | Encounter Summary ---
:1970 Author Organization [facility] Address [address] [place] [address] Care Team Providers Name Role Phone Filomena Ochoa PA-C Primary Care Provider [phone] Reason for Visit Reason Onset Date Comments Follow-up 07/04/2019 Encounter Details Date Type Department Care Team Description 07/04/2019 Telephone [facility] Neha Vaughn RN Follow-up Radiation Oncology - Main [address] [place], [place] [phone] [place] [phone] Social History Tobacco Use Types Packs/Day Years [...] Telephone Encounter - Neha Vaughn RN - 07/04/2019 2209 EDT Jia Dow was contacted to assess how she is tolerating radiation therapy. A message was left asking her to return a call to the Radiation Oncology Department. documented in this encounter Plan of Treatment Upcoming Encounters Date Type Specialty Care Team Description 12/16/2021 Appointment Infusion Therapy 04/15/2022 Office Visit Hematology and Oncology Poppy Felton PA-C [address] [phone] (Wo rk) 05/30/2022 Office Visit Surgical Oncology Asa Cameron MD [address] [phone] (Wo rk) documented as of this encounter Visit Diagnoses Not on filedocumented in this encounter Care Teams Dispatcher Refinery Relationship Specialty Start Date End Date Filomena Ochoa PA-C PCP - General 03/02/18 2 [place] [phone] documented as of this encounter
--- OUTSIDE RECORDS SUMMARY | 2021-11-29 00:26 | XMS_ITS | Encounter Summary ---
:1970 Author Organization [facility] Address [address] [place] [address] Care Team Providers Name Role Phone Filomena Ochoa PA-C Primary Care Provider [phone] Reason for Visit Reason Onset Date Comments Appointment Related 06/08/2019 Encounter Details Date Type Department Care Team Description 06/08/2019 Telephone [facility] Asa Cameron MD Appointment Related Surgical Oncology - [address] [place] [address], [address], [address] [place], [place] [address] [place] [address] [phone] (Wo rk) Social History Tobacco Use [...] Notes Telephone Encounter - Yuliana Nieves - 06/08/2019 0953 EDT Fax received 06/07; progress note from Livia Cabral MD at [facility]. Put in Dr Cameron's inbox to review. documented in this encounter Plan of Treatment Upcoming Encounters Date Type Specialty Care Team Description 12/16/2021 Appointment Infusion Therapy 04/15/2022 Office Visit Hematology and Oncology Poppy Felton PA-C 111 [facility], [facility] 2 [place], [place] [phone] (Wo rk) 05/30/2022 Office Visit Surgical Oncology Asa Cameron MD 111 [facility], [facility] 2 [place], [place] [phone] (Wo rk) documented as of this encounter Visit Diagnoses Not on filedocumented in this encounter Care Teams Band Saw Filer Relationship Specialty Start Date End Date Filomena Ochoa PA-C PCP - General 03/02/18 2 [place] [phone] documented as of this encounter
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
--- OUTSIDE RECORDS SUMMARY | 2021-11-29 00:26 | XMS_ITS | Encounter Summary ---
:1970 Author Organization [facility] Address [address] [place] [address] Care Team Providers Name Role Phone Filomena Ochoa PA-C Primary Care Provider [phone] Reason for Visit Reason Onset Date Comments Appointment Related 05/10/2019 Encounter Details Date Type Department Care Team Description 05/10/2019 Telephone [facility] Asa Cameron MD Appointment Related Surgical Oncology - [address] [place] [address], [address], [address] [place], [place] [address] [place] [address] [phone] (Wo rk) Social History Tobacco Use [...] Notes Telephone Encounter - Suad Grover - 05/10/2019 1104 EDT Patient will be rescheduled secondary to Covid19 precautions. Patient has been placed on Bump list and will be rescheduled when clinic operations are back to normal. documented in this encounter Plan of Treatment Upcoming Encounters Date Type Specialty Care Team Description 12/16/2021 Appointment Infusion Therapy 04/15/2022 Office Visit Hematology and Oncology Poppy Felton PA-C [address] [phone] (Wo rk) 05/30/2022 Office Visit Surgical Oncology Asa Cameron MD [address] [phone] (Wo rk) documented as of this encounter Visit Diagnoses Not on filedocumented in this encounter Care Teams Donor Relations Officer Relationship Specialty Start Date End Date Filomena Ochoa PA-C PCP - General 03/02/18 [address] [place] [phone] documented as of this encounter
--- OUTSIDE RECORDS SUMMARY | 2021-11-29 00:26 | XMS_ITS | Encounter Summary ---
:1970 Author Organization [facility] Address [address] [place] [address] Care Team Providers Name Role Phone Filomena Ochoa PA-C Primary Care Provider [phone] Reason for Visit Reason Onset Date Comments Medications Refill 05/02/2019 Encounter Details Date Type Department Care Team Description 05/02/2019 Refill [facility] Adult Nova Ochoa, Medications Refill Primary Care - Hallie GUDINO [address] [place] [address] [place] [address] [phone] (Wo rk) Social History Tobacco Use [...] Date lisdexamfetamine (VYVANSE) Take 1 Cap by 28 Cap 0 201905/17/2019 40 mg capsule mouth every morning for 28 days. Daily Max: 40 mg documented in this encounter Miscellaneous Notes Telephone Encounter - Filomena Ochoa PA-C - 05/05/2019 0820 EDT Eprescribed elephone Encounter - Filomena Yusuf RN - 05/05/2019 0730 EDT Requested Prescriptions Pending Prescriptions Disp Refills ??? lisdexamfetamine (VYVANSE) 30 mg capsule 28 Cap 0 Sig: Take 1 Cap by mouth every morning for 28 days. Daily Max: 30 mg [id number] - [place], [place] - [address] [place] [address] Confirmed Pharmacy? Yes Patient out of medication? Unknown Last Refill Date: 03/31/19 Refills left? (explain exceptions requiring early refill) No Recent Visits Date Type Provider Dept 12/24/18 Office Visit Dustin Fitzpatrick MD [facility] 10/15/18 Office Visit Jia Minor PA-C [facility] 03/15/18 Office Visit Filomena Ochao PA-C [facility] Showing recent visits within past 540 days with a meds authorizing provider and meeting all other requirements Future Appointments No visits were found meeting these conditions. Showing future appointments within next 150 days with a meds authorizing provider and meeting all other requirements Future appointment: Other mult appointment with cancer specialists FILOMENA YUSUF RN 05/05/2019 7:30 elephone Encounter - Filomena Yusuf RN - 05/05/2019 0730 EDT From: Jia Dow Sent: 05/02/2019 2:54 EDT Subject: Medication Renewal Request Jia Dow would like a refill of the following medications: lisdexamfetamine (VYVANSE) 30 mg capsule [Filomena Ochoa PA-C] Patient Comment: Please increase to my normal dose of 40 mg daily. I requested a lesser dose last month due to anxiety over recent cancer recurrence diagnosis, but would like to now return to normal dose. Thank you. Preferred pharmacy: [id number] documented in this encounter Plan of Treatment Upcoming Encounters Date Type Specialty Care Team Description 12/16/2021 Appointment Infusion Therapy 04/15/2022 Office Visit Hematology and Oncology Poppy Felton PA-C [address] [phone] (Wo rk) 05/30/2022 Office Visit Surgical Oncology Asa Cameron MD [address] [phone] (Wo rk) documented as of this encounter Visit Diagnoses Not on filedocumented in this encounter Discontinued Medications Medication Sig Discontinue Reason Start Date End Date lisdexamfetamine (VYVANSE) Take 1 Cap by Reorder 03/31/2019 05/02/2019 30 mg capsule mouth every morning for 28 days. Daily Max: 30 mg documented as of this encounter Additional Health Concerns Infection Onset Date Last Indicated Resolved Time R/O COVID-19 10/16/2019 10/16/2019 10/21/2019 22:15 EDT documented as of this encounter Care Teams Steam Presser Relationship Specialty Start Date End Date Filomena Ochoa PA-C PCP - General 03/02/18 2 [place] [phone] documented as of this encounter
--- OUTSIDE RECORDS SUMMARY | 2021-11-29 00:27 | XMS_ITS | Encounter Summary ---
:1970 Author Organization [facility] Address [address] [place] [address] Care Team Providers Name Role Phone Filomena Ochoa PA-C Primary Care Provider [phone] Encounter Details Date Type Department Care Team Description 03/30/2019 Orders Only [facility] Asa Cameron MD Recurrent malignant Surgical Oncology - [address] [place] [facility] of [facility] [address] breast (HCC-CMS) 111 [facility] (Primary Dx) [place] [address] Pavilion, [place] [phone] (Wo rk) Social History Tobacco Use Types [...] Hematology and Oncology Poppy Felton PA-C [address] [phone] (Wo rk) 05/30/2022 Office Visit Surgical Oncology Asa Cameron MD [address] [phone] (Wo rk) documented as of this encounter Visit Diagnoses Diagnosis 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
--- OUTSIDE RECORDS SUMMARY | 2021-11-29 00:27 | XMS_ITS | Encounter Summary ---
:[address] [facility] Address [address] [place] [address] Care Team Providers Name Role Phone Philip Schulz MD Primary Care Provider Reason for Referral Radiology Services (Routine) - Closed Specialty Diagnoses / Procedures Referred By Contact Refer red To Contact Plastic Surgery Diagnoses S/P breast reconstruction, bilateral Roman Chino Nesbit, Roman Mead, Procedures MR BREAST BILATERAL WO CONTRAST CHG MRI BREAST, W/WO CONTRAST, BILATERAL MD GENARO ROA FACS [address] [place] [address] [place] [address] Fax: Referral ID Status Reason Start Date Expiration Date Visits Requ ested Visits Authorized [id number] Closed 12/06/2017 1 1 Encounter Details Date Type Department Care Team Description 12/06/2017 Orders Only [facility] Roman Chino S/Ariel young ast Plastic, Reconstructive & MD GENARO [place] reconstruction, Cosmetic Surgery - 130 [facility] ad bilateral (Primary [place], [place] Dx) 354 [facility], [address] [place] [address] [address] [place] [address] (Work) [phone] Social History Tobacco Use Types Packs/Day Years [...] Oncology Poppy Felton, PAChuyC 111 [facility], [facility] 2 [place], [place] [phone] (Wo rk) 05/30/2022 Office Visit Surgical Oncology Asa Cameron MD 111 [facility], [facility] 2 [place], [place] [phone] (Wo rk) documented as of this encounter Procedures Procedure Name Priority Date/Time Associated Diagnosis Comme nts MR BREAST BILATERAL Routine 04/14/2018 14:56 S/P breast Resu lts for this WO CONTRAST EST reconstruction, procedure ar e in bilateral the results section. documented in this encounter Results MR BREAST BILATERAL WO CONTRAST (04/14/2018 14:56 EST) Anatomical Region Laterality Modality Other Specimen Narrative [facility] RADIOLOGY MRI [facility] Phil LINDSAY - 04/14/2018 15:51 EST MR BREAST BILATERAL WO CONTRAST 04/14/2018 3:09 PM Signs and Symptoms/Comments: ?? Z98.890-Other specified postprocedural s [id number]; Silicone implants - assess for rupture Comparison: None available Technique: Sagittal STIR, axial silicone , silicone suppression as well as an axial STIR images of both young asts was performed. Findings: Both breasts: The patient is status post bilateral mastectomies. Bilateral retropectoral intact silicone implants are present. Metallic artifact from surgery is noted bilaterally. Impression: Both breasts: No evidence of intra or ex tracapsular rupture of the silicone implants. Of note, this exam is not diagnostic for neoplasm or recurrence given that contrast was not administered . A member of the radiology department ester naylor call the patient to inform her of the above findings and follow-up recommendations. Portions of this document may have been prepared with speech recognition software or keyboard data en try techniques. Minor irregularities or keyboarding misprints may be present. Procedure Note Debby Roberts MD - 04/14/2018 MR BREAST BILATERAL WO CONTRAST 3:09 PM Signs and Symptoms/Comments: Z98.890-Other specified postprocedural s [id number]; Silicone implants - assess for rupture Comparison: None available Technique: Sagittal STIR, axial silicone , silicone suppression as well as an axial STIR images of both young asts was performed. Findings: Both breasts: The patient is status post bilateral mastectomies. Bilateral retropectoral intact silicone implants are present. Metallic artifact from surgery is noted bilaterally. Impression: Both breasts: No evidence of intra or ex tracapsular rupture of the silicone implants. Of note, this exam is not diagnostic for neoplasm or recurrence given that contrast was not administered . A member of the radiology department ester naylor call the patient to inform her of the above findings and follow-up recommendations. Portions of this document may have been prepared with speech recognition software or keyboard data en try techniques. Minor irregularities or keyboarding misprints may be present. Performing Organization Address City/State/ZIP Code Phon e Number [facility] RADIOLOGY MRI [place] documented in this encounter Visit Diagnoses Diagnosis S/P breast reconstruction, bilateral - P rimary Breast replaced by other means documented in this encounter Care Teams Career Services Manager Relationship Specialty Start Date End Date Philip Schulz MD PCP - General 05/14/16 12/06/[address] [place] [address] [place] [phone] documented as of this encounter
--- OUTSIDE RECORDS SUMMARY | 2021-11-29 00:27 | XMS_ITS | Encounter Summary ---
:1970 Author Organization [facility] Address [address] [place] [address] Care Team Providers Name Role Phone Filomena Ochoa PA-C Primary Care Provider Reason for Visit Reason Comments Follow-up Encounter Details Date Type Department Care Team Description 08/30/2018 Office Visit [facility] Asa Cameron MD Routine cancer follow-up visit (Primary Dx); Surgical Oncology - [address] [place] [address] al history of breast cancer [facility] [address] [place] [address] [address], [place] [phone] (Wo rk) Social History Tobacco Use Types [...] of this encounter Progress Notes Asa Cameron MD, MD - 08/30/2018 1630 EDT This office note has been dictated. Asa sheppard MD, MD - 08/30/2018 0000 EDT [facility] BREAST CANCER PROGRAM PROGRESS / FOLLOWUP NOTE - 08/30/2018 PROBLEM: The patient is seen in followup. SUBJECTIVE: The patient is a 48-year-old woman had a breast cancer on the right breast, operated on in 07/2011. She had a right total mastectomy with sentinel node biopsy and a prophylactic left total mastectomy. She had implant reconstructions on both sides. Tumor stage was T1c N0. She was on hormonal therapies for about 4 years and did not tolerate that further. She is seen here now in routine followup. Her last visit was in November when she had a small lump that she felt in the skin on the right side. This appeared to be an epidermal cyst. That has not significantly changed since that time. The patient otherwise has no complaints. OBJECTIVE: On exam, she is in no distress. There is no scleral icterus. There are no palpable neck masses. No cervical or supraclavicular lymph nodes are palpable. There are no nodules in her thyroid. No carotid bruits or JVD are noted. Lungs are clear. Heart has a regular rate and rhythm without S3, S4, or murmurs. Breast exam reveals bilateral mastectomies. There implant reconstructions. On the right side, there is the small epidermal cyst near the previous core biopsy site. This is about 4 or 5 mm in size. It is firm in the dermis and is very benign-feeling. No other dominant masses are felt in the right. There are no palpable lymph nodes in the right axilla. The left breast has no discrete palpable abnormalities in the mastectomy site. The implant was in good position. There are no palpable lymph nodes in the axilla. There are no abdominal masses. No hepato or splenomegaly was noted. DIAGNOSTIC DATA: Ultrasound of the breast on the right shows the small epidermal cyst to be about 4 or 5 mm in size. It has a benign appearance. No other architectural changes or evidence of recurrent disease is seen in the right side. There are no abnormal lymph nodes in the intramammary or axillary region. There was no fluid around her implant. On the left side, the implant was in good position. There is no fluid around it. There was no evidence of recurrent disease in the mastectomy site. There were no lymph nodes in the intramammary or axillary region. The patient had an MRI of the breast done on April 14, which showed no suspicious findings. ASSESSMENT AND PLAN: At this point, the patient is doing well, has no evidence of recurrent disease and will go to followup in 1 year. Asa Cameron MD 04 43 PM - Asa Cameron MD dn Dictation ID: [id number] cc: Philip Schulz MD, [facility] [address] [place] [address] Jessi Pleitez MD, [facility] - Hematology Oncology [address] [place] [address] Roman Chino MD, [facility] - Plastic Surgery [address] [facility], [address], [place] [address] Filomena MONAHAN, [facility] [place] [address] documented in this encounter Plan of Treatment Upcoming Encounters Date Type Specialty Care Team Description 12/16/2021 Appointment Infusion Therapy 04/15/2022 Office Visit Hematology and Oncology Poppy Felton, SHAHAB [address] [place] [address], [facility] 2 [place], [place] [phone] (Wo rk) 05/30/2022 Office Visit Surgical Oncology Asa Cameron MD [address] [facility], [facility], [facility] 2 [place], [place] [phone] (Wo rk) documented as of this encounter Visit Diagnoses Diagnosis Routine cancer follow-up visit - Primary Other follow-up examination Personal history of breast cancer Personal history of malignant neoplasm o f breast documented in this encounter Care Teams Patient Case Coordinator Relationship Specialty Start Date End Date Filomena Ochoa PA-C PCP - General 03/02/18 2 [place] [phone] documented as of this encounter
--- OUTSIDE RECORDS SUMMARY | 2021-11-29 00:27 | XMS_ITS | Encounter Summary ---
:1970 Author Organization [facility] Address [address] [place] [address] Care Team Providers Name Role Phone Philip Schulz MD Primary Care Provider Encounter Details Date Type Department Care Team Description 11/24/2017 Results Only [facility] Asa Cameron MD Imaging Surgical Oncology - [address] [place] [address], [address], [address] [place], [place] [phone] [place] [phone] (Wo rk) Social History Tobacco Use Types [...] Hematology and Oncology Poppy Felton PA-C 111 [facility], [facility], [facility] 2 [place], [place] [phone] (Wo rk) 05/30/2022 Office Visit Surgical Oncology Asa Cameron MD 111 [facility] 2 [place], [place] [phone] (Wo rk) documented as of this encounter Procedures Procedure Name Priority Date/Time Associated Diagnosis Comme [facility] 11/24/2017 15:07 Results for this BREAST-BREAST CARE EDT procedure are in CENTER ONLY the results section. documented in this encounter Results [facility] ONLY (11/24/2017 15:07 EDT) Anatomical Region Laterality Modality Other Specimen Narrative [facility] BREAST IMAGING MAIN C AMP[facility] - 11/24/2017 15:07 EDT See Notes Tab. Procedure Note [employer], IMAGING - 11/24/2017 See Notes Tab. Performing Organization Address City/State/ZIP Code Phon e Number [facility] BREAST IMAGING MAIN [place] documented in this encounter Visit Diagnoses Not on filedocumented in this encounter Care Teams Extension Forester Relationship Specialty Start Date End Date Philip Schulz MD PCP - General 05/14/16 12/06/[address] [place], [place] [phone] documented as of this encounter
--- OUTSIDE RECORDS SUMMARY | 2021-11-29 00:27 | XMS_ITS | Encounter Summary ---
:1970 Author Organization [facility] Address [address] [place] [address] Care Team Providers Name Role Phone Filomena Ochoa PA-C Primary Care Provider [phone] Reason for Visit Reason Onset Date Comments Pre-op Exam 03/30/2019 LABS Encounter Details Date Type Department Care Team Description 03/30/2019 Orders Only [facility] Asa Cameron MD Recurrent breast Surgical Oncology - [address] [place] [address] ([facility]) (Primary [address] [facility], [facility]) [place] [address] [address], [place] [address] (Wo rk) Social History Tobacco [...] documented as of this encounter Progress Notes Nicolle Hilton, LAMAR - 03/30/2019 1402 EST Pre-op orders done. documented in this encounter Plan of Treatment Upcoming Encounters Date Type Specialty Care Team Description 12/16/2021 Appointment Infusion Therapy 04/15/2022 Office Visit Hematology and Oncology Poppy Felton PA-C [address] [phone] (Wo rk) 05/30/2022 Office Visit Surgical Oncology Asa Cameron MD 111 [facility] 2 [place], [place] [phone] (Wo rk) documented as of this encounter Results COMPREHENSIVE METABOLIC PANEL (CMP) (03/30/2019 14:28 EST) Sodium 138 136 - 145 [facility] mEq/L [facility] Potassium 4.5 3.5 - 5.0 [facility] mEq/L [facility] Chloride 109 96 - 110 [facility] mEq/L [facility] CO2 Total 23 22 - 32 mEq/L [facility] Glucose 90 70 - 100 [facility] mg/dL [facility] BUN 20 10 - 26 mg/dL [facility] Creatinine 0.78 0.52 - 1.04 [facility] mg/dL [facility] eGFR 91Comment: eGFR >60 [facility] calculated using mL/min/1.73m2 [facility] CKD-EPI equation SERVICES for non- Americans. Multiply eGFR by 1.16 for patients. Total Protein 6.6 6.3 - 8.2 [facility] g/dL [facility] Albumin 4.1 3.4 - 4.9 [facility] g/dL [facility] Alkaline 45 38 - 126 U/L [facility] Phosphatase [place] [facility] AST 25 15 - 46 U/L [facility] ALT 17 <35 U/L [facility] Bilirubin, Total <0.5 <1.4 mg/dL [facility] Calcium 10.1 8.5 - 10.5 [facility] mg/dL [place] [facility] Calculated Calcium 10.0 8.5 - 10.5 [facility] mg/dL [place] [facility] Specimen Blood - Venous blood (substance) Narrative [facility] - 03/30/2019 16:09 EST 2 Performing Organization Address City/State/ZIP Code Phon e Number [facility] [address] [place] [address] SERVICES (ABNORMAL) COMPLETE BLOOD COUNT AND DIFFERENTIAL (03/30/2019 14:28 EST) Pathologist Sig nature WBC 5.60 4.00 - 12.40 [facility] LABORATORY SERVICES RBC 4.61 3.86 - 5.04 [facility] M[facility] LABORATORY SERVICES Hemoglobin 14.1 11.6 - 15.2 [facility] gm/dL LABORATORY SERVICES HCT 42.2 34.9 - 44.4 % [facility] SERVICES MCV 92 81 - 98 fl [facility] SERVICES MCH 30.6 26.7 - 33.3 pg [facility] SERVICES MCHC 33.4 32.1 - 35.9 [facility] gm/dL LABORATORY SERVICES RDW-CV 12.8 <14.7 % [facility] SERVICES RDW-SD 42.5 <50.4 fl [facility] SERVICES PLT 212 141 - 377 K/m [facility] SERVICES MPV 9.3 (L) 9.5 - 12.7 fl [facility] SERVICES Neutrophils 52.9 % [facility] SERVICES Lymphocytes 35.5 % [facility] SERVICES Monocytes 9.3 % [facility] SERVICES Eosinophils 1.6 % [facility] SERVICES Basophils 0.5 % [facility] SERVICES Immature Grans 0.2 % [facility] SERVICES Absolute Neutrophils 2.96 2.20 - 8.85 [facility] LABORATORY SERVICES Absolute Lymphocytes 1.99 1.09 - 3.30 [facility] LABORATORY SERVICES Absolute Monocytes 0.52 0.10 - 0.80 [facility] LABORATORY SERVICES Absolute Eosinophils 0.09 0.03 - 0.61 [facility] LABORATORY SERVICES Absolute Basophils 0.03 0.01 - 0.11 [facility] LABORATORY SERVICES Absolute Immature 0.01 0.00 - 0.06 [facility] LABORATORY SERVICES Type of Differential: Auto [facility] SERVICES Specimen Blood - Venous blood (substance) Performing Organization Address City/State/ZIP Code Phon e Number [facility] [address] [place] [address] SERVICES documented in this encounter Visit Diagnoses Diagnosis Recurrent breast cancer, right (HCC-CMS) (HCC) - Primary documented in this encounter Care Teams Shoemaker Apprentice Relationship Specialty Start Date End Date Filomena Ochoa PA-C PCP - General 03/02/18 [address] [place] [phone] documented as of this encounter
--- OUTSIDE RECORDS SUMMARY | 2021-11-29 00:27 | XMS_ITS | Encounter Summary ---
:[address] [facility] Address [address] [place] [address] Care Team Providers Name Role Phone Filomena Ochoa PA-C Primary Care Provider [phone] Reason for Visit Reason Onset Date Comments Medications Refill 03/28/2019 Encounter Details Date Type Department Care Team Description 03/28/2019 Refill [facility] Adult Nova Ochoa, Medications Refill Primary Care - Hallie GUDINO [address] [place] [phone] [place] [address] [phone] (Wo rk) Social History Tobacco Use [...] Take 1 Cap by 28 Cap 0 201905/02/2019 30 mg capsule mouth every morning for 28 days. Daily Max: 30 mg buPROPion (WELLBUTRIN XL) Take 1 Tab by 30 Tab 1 020 05/17/2019 300 mg XL mouth daily. tabletIndications: Depression, unspecified depression type traZODone (DESYREL) 100 mg Take 1 Tab by 30 Tab 1 201905/17/2019 tablet mouth at bedtime. documented in this encounter Miscellaneous Notes Telephone Encounter - Filomena Ochoa PA-C - 03/31/2019 1220 EST Called pt. Pt would like a temporary reduction in her vyvanse dose to 30mg daily for the 1mo she is getting at local pharmacy. She has new insurance wand will have a new mail order but is still figuring this out. She will want to return to 40mg daily in 1mo. For now, she has more visits and testing over the next month so she wants to have less of the vyvanse. She will let us know what her new mailorder is in a few weeks to rxs can be eprescribed. Pt is seeing Oncology in [place] as well as Dr. Cameron at [facility]. elephone Encounter - Filomena North RN - 03/31/2019 1202 EST Please see telephone encounter from 03/29/19. Patient requesting short fills to a local pharmacy. elephone Encounter - Lucero Sadler RN - 03/31/2019 0928 EST Requested Prescriptions Pending Prescriptions Disp Refills ??? traZODone (DESYREL) 100 mg tablet 90 Tab 3 Sig: Take 1 Tab by mouth at bedtime. ??? buPROPion (WELLBUTRIN XL) 300 mg XL tablet 90 Tab 3 Sig: Take 1 Tab by mouth daily. ??? lisdexamfetamine (VYVANSE) 40 mg capsule 84 Cap 0 Sig: Take 1 Cap by mouth every morning for 84 days. Daily Max: 40 mg [facility] - [place], [place] - [address] AT [facility] Sites Confirmed Pharmacy? Yes Patient out of medication? Unknown Last Refill Date: Multiple daates Refills left? (explain exceptions requiring early refill) No Recent Visits Date Type Provider Dept 12/24/18 Office Visit Dustin Fitzpatrick MD [facility] 10/15/18 Office Visit Jia Minor PA-C [facility] 03/15/18 Office Visit Filomena Ochoa PA-C [facility] Showing recent visits within past 540 days with a meds authorizing provider and meeting all other requirements Today's Visits Date Type Provider Dept 03/31/19 Appointment Jia Minor PA-C [facility] Showing today's visits with a meds authorizing provider and meeting all other requirements Future Appointments No visits were found meeting these conditions. Showing future appointments within next 150 days with a meds authorizing provider and meeting all other requirements Future appointment: Other patient has telehealth visit scheduled for today. LUCERO SADLER RN 03/31/2019 9:28 elephone Encounter - Lucero Sadler RN - 03/31/2019 0927 EST From: Jia Dow Sent: 03/28/2019 1:50 EST Subject: Medication Renewal Request Jia Dow would like a refill of the following medications: traZODone (DESYREL) 100 mg tablet [Filomena Ochoa PA-C] Patient Comment: As I have new insurance, please call in a 30 day supply to [facility]. Thanks very much! Please contact me at [phone] with any questions buPROPion (WELLBUTRIN XL) 30 0 mg XL tablet [Filomena Ochoa PA-C] Patient Comment: As I have new insurance, please call in a 30 day supply to [facility]. Thanks very much! Please contact me at [phone] with any questions lisdexamfetamine (VYVANSE) 40 mg capsule [Filomena Ochoa PA-C] Patient Comment: As I have new insurance, please e-script a 30 day supply 40 mg to [facility]. Thanks very much! Please contact me at with any questions Preferred pharmacy: [facility] - [address] documented in this encounter Plan of Treatment Upcoming Encounters Date Type Specialty Care Team Description 12/16/2021 Appointment Infusion Therapy 04/15/2022 Office Visit Hematology and Oncology Poppy Felton PA-C [address] [phone] (Wo rk) 05/30/2022 Office Visit Surgical Oncology Asa Cameron MD [address] [phone] (Wo rk) documented as of this encounter Visit Diagnoses Diagnosis Depression, unspecified depression type - Primary documented in this encounter Discontinued Medications Medication Sig Discontinue Reason Start Date End Date traZODone (DESYREL) 100 mg TAKE 1 TABLET AT [facility] 09/10/2018 03/28/2019 tablet BEDTIME buPROPion (WELLBUTRIN XL) TAKE 1 TABLET [facility] 09/10/2018 0 03/28/2019 300 mg XL DAILY tabletIndications: Depression, unspecified depression type lisdexamfetamine (VYVANSE) Take 1 Cap by [facility] 12/13/2018 03/28/2019 40 mg capsule mouth every morning for 84 days. Daily Max: 40 mg documented as of this encounter Care Teams Civil Cad Tech Relationship Specialty Start Date End Date Filomena Ochoa PA-C PCP - General 03/02/18 [address] [place] [phone] documented as of this encounter
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
--- OUTSIDE RECORDS SUMMARY | 2021-11-29 00:27 | XMS_ITS | Encounter Summary ---
:1970 Author Organization [facility] Address [address] [place] [address] Care Team Providers Name Role Phone Filomena Ochoa PA-C Primary Care Provider [phone] Reason for Visit Reason Onset Date Comments Appointment Related 01/17/2019 Encounter Details Date Type Department Care Team Description 01/17/2019 Telephone [facility] Hand Jaquelin Reynolds Appointment Related & Upper Extremity [facility] Program - [facility] [address] [place], [place] [phone] (Wo rk) Social History Tobacco Use Types [...] this encounter Miscellaneous Notes Telephone Encounter - Dior Duvall MA - 01/17/2019 0911 EST Left message for Jia with date/time of upcoming MRI. MRI - 12.16.19 @ 1:45pm with 1:15pm check in with registration at [facility]. F/U - by phone DIOR DUVALL MA 01/17/19 documented in this encounter Plan of Treatment Upcoming Encounters Date Type Specialty Care Team Description 12/16/2021 Appointment Infusion Therapy 04/15/2022 Office Visit Hematology and Oncology Poppy Felton PA-C [address] [facility], [facility] 2 [place], [place] [phone] (Wo rk) 05/30/2022 Office Visit Surgical Oncology Asa Cameron MD [address] [facility], [facility] 2 [place], [place] [phone] (Wo rk) documented as of this encounter Visit Diagnoses Not on filedocumented in this encounter Care Teams Pot Lining Supervisor Relationship Specialty Start Date End Date Filomena Ochoa PA-C PCP - General 03/02/18 2 [place] [phone] documented as of this encounter
--- OUTSIDE RECORDS SUMMARY | 2021-11-29 00:27 | XMS_ITS | Encounter Summary ---
:1970 Author Organization [facility] Address [address] [place] [address] Care Team Providers Name Role Phone Filomena Ochoa PA-C Primary Care Provider [phone] Reason for Referral Consult (Routine) - Specialty Report Received Specialty Diagnoses / Procedures Referred By Contact Refer red To Contact Diagnoses Epidermal inclusion cyst Jia Minor PA-C [facility], [address] [place] [address] [place] [address] Phone: Fax: Referral ID Status Reason Start Expiration Visits Visits Date Date Requested Authorized [id number] Specialty Specialty 10/15/2018 1 1 Report Services Received Required Question Answer Reason for Request: Epidermal inclusion cyst rig ht breast - would like it removed. onsult (Routine) - Specialty Report Received Specialty Diagnoses / Procedures Referred By Contact Refer red To Contact Orthopedic Surgery Diagnoses Nodule of flexor tendon sheath Epidermal inclusion cyst Jia Minor Tilley [facility] SHAHAB [place] [address] [place] [address] [place] [address] Phone: Fax: Referral ID Status Reason Start Expiration Visits Visits Date Date Requested Authorized [id number] Specialty Specialty 10/15/2018 1 1 Report Services Received Required Question Answer Reason for Request: Right 4th tendon nodule in p zeyad - painful. ? injection. Not going away with massage. Reason for Visit Reason Comments ADHD review meds Other recent bee sting, but seems to be almost normal today Encounter Details Date Type Department Care Team Description 10/15/2018 Office Visit [facility] Jia Minor Attention deficit hyperactivity disorder (ADHD), unspecified ADHD type (Primary Dx); Adult Primary Care - SHAHAB Arana Nodule of flexor tendon sheath; [facility] Epidermal inclusion cyst; [address] Bee sting reaction, accident al or unintentional, initial encounter; [place] [address] Exposure to radon, sequela [phone] Social History Tobacco Use Types Packs/Day Years [...] Sign Reading Time Taken Comments Blood Pressure 110/70 10/15/2018 1148 EDT Pulse 60 10/15/2018 1148 EDT reg Temperature 36.5 ??C (97.7 ??F) 10/15/2018 1148 EDT Respiratory Rate 14 10/15/2018 1148 EDT reg Oxygen Saturation - - Inhaled Oxygen Concentration - - Weight 64 kg (141 lb) 10/15/2018 1148 EDT Height 170.2 cm (5' 7) 10/15/2018 1148 EDT Body Mass Index 22.08 10/15/2018 1148 EDT documented in this encounter Functional Status [...] as of this encounter Progress Notes Jia Byrd - 10/15/2018 1115 EDT Images from the original note were not included. Subjective: Patient ID: Jia Dow is an 48 y.o. female. Chief Complaint Patient presents with ??? ADHD review meds ??? Other recent bee sting, but seems to be almost normal today Jia is here for a 6-month follow-up for ADHD. She has been stable on current dose of Vyvanse. Shetakes it every day. She was stung by a bee on her left wrist 2 days ago. She had not been stung in over 20 years. She had a reaction where her wrist swelled and the swelling extended up her forearm and down to her hand. She took Benadryl every 4 hours until last night. It is much better overall. Its only slightly red in the area of the bee sting. She denied any difficulty breathing associated with the reaction. She has had a nodule on her right palm since the beginning amount biking season. She rubs on it daily but it is not getting any better. It is becoming painful to hold onto the handlebar. She has had a bump on her right breast for quite some time now. She believes it is a cyst. It is quite bothersome as it is in the area where she found her breast cancer. She would like to have it removed. She just found out the house she grew up in has [employer]. According to the health department it is 4 times the limit of normal. She is concerned about possible lung cancer risk. She is already had breast cancer. Her brother had thyroid cancer at a young age. Patient Active Problem List Diagnosis ??? Depression ??? ADHD (attention deficit hyperactivity disorder) ??? Episodic mood disorder (HCC-CMS) ??? Malignant neoplasm of breast (HCC-CMS) Outpatient Medications Marked as Taking for the 10/15/18 encounter (Office Visit) with Jia Minor PA Medication Sig Dispense Refill ??? buPROPion (WELLBUTRIN XL) 300 mg XL tablet TAKE 1 TABLET DAILY 90 Tab 3 ??? lisdexamfetamine (VYVANSE) 40 mg capsule Take 1 Cap by mouth every morning for 84 days. Daily Max: 40 mg 84 Cap 0 ??? traZODone (DESYREL) 100 mg tablet TAKE 1 TABLET AT BEDTIME 90 Tab 3 ROS - unremarkable except as noted in the HPI Objective: BP 110/70 (BP Cuff Location: Right arm, Patient Position: Sitting, BP Cuff Sizes: Adult, regular) Pulse 60 Comment: reg Temp 36.5 ??C (97.7 ??F) (Tympanic) Resp 14 Comment: reg Ht 170.2 cm (67) Wt 64 kg (141 lb) BMI 22.08 kg/m?? Physical Exam Constitutional: She appears well-developed and well-nourished. No distress. Pulmonary/Chest: Musculoskeletal: Right hand???palmar aspect: Well-defined nodule along fourth tender ann marie. No restriction in range of motion. Mildly tender to palpation. Left wrist???dorsal aspect: Mild erythema and swelling. No tenderness to palpation. Full AROM and all motions. Psychiatric: She has a normal mood and affect. Her behavior is normal. Judgment and thought content normal. Assessment / Plan: Jia was seen today for adhd and other. Diagnoses and all orders for this visit: Attention deficit hyperactivity disorder (ADHD), unspecified ADHD type Stable on current dose of Vyvanse. Nodule of flexor tendon sheath As it has not improved with massage will refer to orthopedics for possible injection. - AMB CONS/FOLLOW UP ORTHOPEDICS Epidermal inclusion cyst She would like to have this removed so will refer to dermatology. - AMB CONS/FOLLOW UP DERMATOLOGY Bee sting reaction, accidental or unintentional, initial encounter Resolving. Continue Benadryl as needed. Exposure to radon, sequela She may need low dose lung cancer screening at some point. Portions of this document have been prepared with speech recognition software or keyboard data entrytechniques. Minor irregularities or keyboarding misprints may be present. TANIYA De La Cruz 10/15/2018 12:21 documented in this encounter Plan of Treatment Upcoming Encounters Date Type Specialty Care Team Description 12/16/2021 Appointment Infusion Therapy 04/15/2022 Office Visit Hematology and Oncology Poppy Felton PA-C 111 [facility] 2 [place], [place] [address] (Wo rk) 05/30/2022 Office Visit Surgical Oncology Asa Cameron MD 111 [facility] 2 [place], [place] [address] (Wo rk) Scheduled Referrals Name Type Priority Associated Order Schedule Diagnoses AMB CONS/FOLLOW UP Outpatient Referral Routine Nodule of flexo r Ordered: ORTHOPEDICS tendon sheath 10/15/2018 Epidermal inclusion cyst AMB CONS/FOLLOW UP Outpatient Referral Routine Epidermal inclu slick Ordered: DERMATOLOGY cyst 10/15/2018 documented as of this encounter Visit Diagnoses Diagnosis Attention deficit hyperactivity disorder (ADHD), unspecified ADHD type - Primary Nodule of flexor tendon sheath Other disorders of synovium, tendon, and bursa Epidermal inclusion cyst Sebaceous cyst Bee sting reaction, accidental or uninte ntional, initial encounter Exposure to radon, sequela documented in this encounter Care Teams Warehouse Checker Relationship Specialty Start Date End Date Filomena Ochoa PA-C PCP - General 03/02/18 2 [place] [address] documented as of this encounter
--- OUTSIDE RECORDS SUMMARY | 2021-11-29 00:27 | XMS_ITS | Encounter Summary ---
:1970 Author Organization [facility] Address [address] [place] [address] Care Team Providers Name Role Phone Filomena Ochoa PA-C Primary Care Provider [phone] Encounter Details Date Type Department Care Team Description 03/30/2019 Orders Only [facility] Jia Gary, Sushant ent breast Surgical Oncology - RN cancer, right ([facility] Main [place] (Primary Dx) [address] [place] [address] Social History Tobacco Use Types [...] of this encounter Progress Notes Jia Gary, RN - 03/30/2019 1427 EST Plan: Re-Excision Med Onc Follow up NPV with Rad Onc Assist in 2nd Opinion [facility] Staging (CT Scan and Bone Scan) documented in this encounter Plan of Treatment Upcoming Encounters Date Type Specialty Care Team Description 12/16/2021 Appointment Infusion Therapy 04/15/2022 Office Visit Hematology and Oncology Poppy Felton PA-C 111 [facility] 2 [place], [place] [address] (Wo rk) 05/30/2022 Office Visit Surgical Oncology Asa Cameron MD 111 [facility], [facility] 2 [place], [place] [address] (Wo rk) documented as of this encounter Visit Diagnoses Diagnosis Recurrent breast cancer, right (HCC-CMS) (HCC) - Primary documented in this encounter Care Teams Wood Cutter Relationship Specialty Start Date End Date Filomena Ochoa PA-C PCP - General 03/02/18 2 [place] [phone] documented as of this encounter
--- OUTSIDE RECORDS SUMMARY | 2021-11-29 00:27 | XMS_ITS | Encounter Summary ---
:1970 Author Organization [facility] Address [address] [place] [address] Care Team Providers Name Role Phone Filomena Ochoa PA-C Primary Care Provider [phone] Reason for Referral Consult (Routine) - Authorization Not Required Specialty Diagnoses / Procedures Referred By Contact Refer red To Contact Radiation Oncology Diagnoses Recurrent cancer of right breast ([facility]) ([facility]) Asa Cameron MD [facility] 111 [facility] e [address] [place] [address] [place], Level [address] [place], [place] Fax: [phone] Referral ID Status Reason Start Expiration Visits Visits Date Date Requested Authorized [id number] Authorization Specialty 03/30/2019 1 1 Not Required Services Required Question Answer Reason for Request: Recurrent Right Breast Cance r: s/p re-excision 04/07/19 Scheduling Comments (optional ? call jia [phone] describe specific scheduling needs if applicable): Encounter Details Date Type Department Care Team Description 03/30/2019 Documentation Visit [facility] Gary current cancer of Surgical Oncology - LAMAR Ro right [facility] ([facility]) (Primary 111 [facility]) [place], [place] [id number] Social History Tobacco Use Types Packs/Day Years [...] Hematology and Oncology Poppy Felton PA-C 111 [facility] 2 [place], [place] [address] (Wo rk) 05/30/2022 Office Visit Surgical Oncology Asa Cameron MD 111 [facility] 2 [place], [place] [address] (Wo rk) Scheduled Referrals Name Type Priority Associated Diagnoses Order S chedule AMB CONS/FOLLOW UP Outpatient Referral Routine Recurrent cance r of Ordered: RADIATION ONCOLOGY right breast 0 (HCC-CMS) documented as of this encounter Visit Diagnoses Diagnosis Recurrent cancer of right breast (HCC-CM S) (HCC) - Primary documented in this encounter Additional Health Concerns Infection Onset Date Last Indicated Resolved Time R/O COVID-19 10/16/2019 10/16/2019 10/21/2019 22:15 EDT documented as of this encounter Care Teams Copy Lathe Tender Relationship Specialty Start Date End Date Filomena Ochoa PA-C PCP - General 03/02/18 2 [place] [address] documented as of this encounter
--- OUTSIDE RECORDS SUMMARY | 2021-11-29 00:27 | XMS_ITS | Encounter Summary ---
:1970 Author Organization [facility] Address [address] [place] [address] Care Team Providers Name Role Phone Filomena Ochoa PA-C Primary Care Provider [phone] Reason for Visit Reason Onset Date Comments Medications Refill 07/06/2018 Encounter Details Date Type Department Care Team Description 07/06/2018 Refill [facility] Adult Nova Ochoa, Medications Refill Primary Care - Halile GUDINO [address] [place] [address] [place] [address] [phone] (Wo rk) Social History Tobacco Use [...] Take 1 Cap by 84 Cap 0 201809/09/2018 40 mg capsule mouth every morning for 84 days. Daily Max: 40 mg documented in this encounter Miscellaneous Notes Telephone Encounter - Filomena Mcnair PA - 07/08/2018 1400 EDT Eprescribed. elephone Encounter - Tara Saavedra RN - 07/08/2018 1339 EDT Medication(s) Requested: Vyvnicholee Preferred Pharmacy: [facility] Is patient out of medication? Unknown Last Refill Date: 04/08/18 Last Visit Date with Ordering Provider: 03/15/18 Plan to f/u 3-6 mo Next Non-Acute Visit Date Scheduled with Care Team: No. Tara Saavedra RN 07/08/2018 13:39 elephone Encounter - Tara Saavedra RN - 07/08/2018 1338 EDT From: Jia Dow Sent: 07/06/2018 1:22 EDT Subject: Medication Renewal Request Jia Dow would like a refill of the following medications: lisdexamfetamine (VYVANSE) 40 mg capsule [TANIYA [place]] Preferred pharmacy: [facility] [place] [place] [facility] [address] AT [address] TO REGISTERED [facility] documented in this encounter Plan of Treatment Upcoming Encounters Date Type Specialty Care Team Description 12/16/2021 Appointment Infusion Therapy 04/15/2022 Office Visit Hematology and Oncology Poppy Felton PA-C 111 [facility], [facility] 2 [place], [place] [phone] (Wo rk) 05/30/2022 Office Visit Surgical Oncology Asa Cameron MD [address] [phone] (Wo rk) documented as of this encounter Visit Diagnoses Not on filedocumented in this encounter Discontinued Medications Medication Sig Discontinue Reason Start Date End Date lisdexamfetamine (VYVANSE) Take 1 Cap by Reorder 04/08/2018 07/06/2018 40 mg capsule mouth every morning for 90 days. Daily Max: 40 mg documented as of this encounter Additional Health Concerns Infection Onset Date Last Indicated Resolved Time R/O COVID-19 10/16/2019 10/16/2019 10/21/2019 22:15 EDT documented as of this encounter Care Teams Deep Fat Fry Cook Relationship Specialty Start Date End Date Filomena Ochoa PA-C PCP - General 03/02/18 2 [place] [address] documented as of this encounter
--- OUTSIDE RECORDS SUMMARY | 2021-11-29 00:27 | XMS_ITS | Encounter Summary ---
:1970 Author Organization [facility] Address [address] [place] [address] Care Team Providers Name Role Phone Maycol Ochoa PA-C Primary Care Provider [phone] Reason for Visit Reason Onset Date Comments Pharyngitis 02/25/2019 Cough 02/25/2019 Medication Management 02/25/2019 Encounter Details Date Type Department Care Team Description 02/25/2019 Telephone [facility] Maycol Ochoa Phar yngitis; Cough; Adult Primary Care - SHAHAB Wolf Medication Management [address] [phone] Social History Tobacco Use Types Packs/Day [...] encounter Miscellaneous Notes Telephone Encounter - Ailyn Hall RN - 02/25/2019 1228 EST Jia notified that triage reviewed symptoms with alonso doss Jia advised of symptoms ; typically high fever; chills; cough for 3 days Jia; advised to follow care for upper respiratory infection; rest; fluids; bone based soup. No barriers. elephone Encounter - Maycol Ochoa PA - 02/25/2019 1201 EST tamiflu is used when we are concerned about influenza. Influenza is typically high fever, chills, cough x 3+ days. This sound more like a URI, not influenza. elephone Encounter - Ailyn Hall RN - 02/25/2019 0948 EST Jia has sx of sore throat; fatigue; started last night Family members have been sick for over a week; no dx of flu; or treatment with antibiotics; She has to leave town for one week She is leaving Thursday No fever; that she is aware of today She is in [facility] today She is at her fathers house in [place] She wonders if she is a canidate for tamiflu? Office visit recommended to patient; but will discuss with maycol gupta for recommendations elephone Encounter - Fabby Maycol - 02/25/2019 0922 EST Reason for Call: Pharyngitis; Cough; and Medication Management Summary/Symptoms: Pt reports sore throat, dry cough, & feeling fatigue. Pt declines fever or chills. Pt states their family have all been really sick for over a week with flu like symptoms, pt reports she's starting to get those. ?Pt wondering if it's appropriate to get a rx for tamiflu? Onset and Duration? Started last night. Appointment Offered? No. Sent to triage. Maycol Sequeira 02/25/2019 9:26 documented in this encounter Plan of Treatment Upcoming Encounters Date Type Specialty Care Team Description 12/16/2021 Appointment Infusion Therapy 04/15/2022 Office Visit Hematology and Oncology Poppy Felton PA-C [address] [phone] (Wo rk) 05/30/2022 Office Visit Surgical Oncology Asa Cameron MD 111 [facility] 2 [place], [place] [phone] (Wo rk) documented as of this encounter Visit Diagnoses Not on filedocumented in this encounter Care Teams Photographic Enlarger Operator Relationship Specialty Start Date End Date Maycol Ochoa PA-C PCP - General 03/02/18 2 [place] [phone] documented as of this encounter
--- OUTSIDE RECORDS SUMMARY | 2021-11-29 00:27 | XMS_ITS | Encounter Summary ---
:1970 Author Organization [facility] Address [address] [place] [address] Care Team Providers Name Role Phone Filomena Ochoa PA-C Primary Care Provider [phone] Encounter Details Date Type Department Care Team Description 03/30/2019 Orders Only [facility] Radiology Andrew Adwoa garcia, - [facility] [address] [place] [address] [place], [place] [address] [phone] Social History Tobacco Use Types Packs/Day Years [...] Hematology and Oncology Poppy Felton PA-C [address] [phone] (Wo rk) 05/30/2022 Office Visit Surgical Oncology Asa Cameron MD [address] [phone] (Wo rk) documented as of this encounter Visit Diagnoses Not on filedocumented in this encounter Care Teams Ventilator Specialist Relationship Specialty Start Date End Date Filomena Ochoa PA-C PCP - General 03/02/18 2 [place] [address] documented as of this encounter
--- OUTSIDE RECORDS SUMMARY | 2021-11-29 00:27 | XMS_ITS | Encounter Summary ---
:1970 Author Organization [facility] Address [address] [place] [address] Care Team Providers Name Role Phone Filomena Ochoa PA-C Primary Care Provider [phone] Reason for Visit (Routine) - Receiving Office to Obtain Authorization Specialty Diagnoses / Procedures Referred By Contact Refer red To Contact Procedures Unknown, Provider, CT OUTSIDE IMAGES CHEST Phone: Referral ID Status Reason Start Expiration Visits Visits Date Date Requested Authorized [id number] Receiving Office 04/22/2019 1 1 to Obtain Authorization Encounter Details Date Type Department Care Team Description 04/06/2019 Hospital Encounter [facility] Radiology - Main [place] [address] [place] [address] Social History Tobacco Use Types Packs/Day Years [...] Hematology and Oncology Poppy Felton PA-C [address] [facility], [facility], [facility] 2 [place], [place] [phone] (Wo rk) 05/30/2022 Office Visit Surgical Oncology Asa Cameron MD [address] [facility], [facility], Level [address] [place], [place] [phone] (Wo rk) documented as of this encounter Procedures Procedure Name Priority Date/Time Associated Diagnosis Comme nts CT OUTSIDE IMAGES Routine 04/22/2019 10:33 Result s for this CHEST EST procedure are i n the results section. documented in this encounter Results CT OUTSIDE IMAGES CHEST (04/22/2019 10:33 EST) Specimen Narrative [place] - 04/22/2019 10:33 EST This is a non-reportable exam. Performing Organization Address City/State/ZIP Code Phon e Number [place] documented in this encounter Visit Diagnoses Not on filedocumented in this encounter Care Teams Orthopedic Cast Specialist Relationship Specialty Start Date End Date Filomena Ochoa PA-C PCP - General 03/02/18 2 [place] [phone] documented as of this encounter
--- OUTSIDE RECORDS SUMMARY | 2021-11-29 00:27 | XMS_ITS | Encounter Summary ---
:1970 Author Organization [facility] Address [address] [place] [address] Care Team Providers Name Role Phone Jia Minor PA-C Primary Care Provider Unavailable Reason for Visit Reason Onset Date Comments Other 12/17/2017 Encounter Details Date Type Department Care Team Description 12/17/2017 Telephone [facility] Plastic, oPllo Raymond, Other Reconstructive & Cosmetic MD [facility] S Surgery - [address] [place] [address] [facility] [place] [address] [phone] Social History Tobacco Use Types Packs/Day Years [...] this encounter Miscellaneous Notes Telephone Encounter - Radha Mcginnis - 12/17/2017 1146 EDT Patient was a walk in without an appt. She arrived in my office to attempt to get some answers in regards to her last visit with Dr. Raymond is August. The follow up plan for that visit, Dr. Raymond was going to reach out her original surgeon to get information about the implants needed. The patient was able to contact the original surgeon and the op not with implant record was faxed to me and provided to Dr. Raymond. Dr. Raymond made a call to the original surgeon but had not heard back from him. Patientwants to discuss with Dr. Raymond what the next step is going to be and if they plan to just order anMRI. I offered to schedule the patient an appointment to come in and speak with Dr. Raymond and she refused stating thats not what he told me, he told me he was going to call me, he doesn't want me to make an appointment. I approached Dr. raymond who happened to be in the office today and asked him ifhe would be willing to talk to her. He responded if she wants to wait until I am finished with thispatient I can talk to her I relayed the information to Jia who stated she is not able to wait because she has a flight and needs to go to the airport. She instead wrote a letter to Dr. raymond that will be scanned into her account. She would like a call from Dr. raymond as soon as possible. documented in this encounter Plan of Treatment Upcoming Encounters Date Type Specialty Care Team Description 12/16/2021 Appointment Infusion Therapy 04/15/2022 Office Visit Hematology and Oncology Poppy Felton PA-C 111 [facility], [facility] 2 [place], [place] [phone] (Wo rk) 05/30/2022 Office Visit Surgical Oncology Asa Cameron MD 111 [facility], [facility] 2 [place], [place] [phone] (Wo rk) documented as of this encounter Visit Diagnoses Not on filedocumented in this encounter Care Teams Food Specialist Relationship Specialty Start Date End Date Jia Minor PA-C PCP - General 12/07/1703/01/18 documented as of this encounter
--- OUTSIDE RECORDS SUMMARY | 2021-11-29 00:27 | XMS_ITS | Encounter Summary ---
:1970 Author Organization [facility] Address [address] [place] [address] Care Team Providers Name Role Phone Filomena Ochoa PA-C Primary Care Provider [phone] Reason for Referral Radiology Services (Routine) - New Request Specialty Diagnoses / Procedures Referred By Contact Refer red To Contact Diagnoses Mass of right hand Palmar fascial fibromatosis (dupuytren) Jazmine Reynolds, Procedures MR EXTREMITY HAND WO CONTRAST PA-C [address] [place] [phone] Referral ID Status Reason Start Date Expiration Date Visits V isits Requested Authorized [id number] New Request 12/30/2018 1 1 Reason for Visit Reason Comments Cyst rt hand cyst no doi/dos Consult (Routine) - Specialty Report Received Specialty Diagnoses / Procedures Referred By Contact Refer red To Contact Orthopedic Surgery Diagnoses Nodule of flexor tendon sheath Epidermal inclusion cyst Jia Minor Tilley Upper PA-C Extremity [address] [place] [address] [address] [facility] [address] [facility] [place] [address] [place] [address] Phone: Fax: Referral ID Status Reason Start Expiration Visits Visits Date Date Requested Authorized [id number] Specialty Specialty 10/15/2018 1 1 Report Services Received Required Encounter Details Date Type Department Care Team Description 12/30/2018 Office Visit [facility] Rodolfo, Mass of right hand (Primary Dx); Hand & Upper Jazmine Sandra PA-C Palmar fascial fibromatosis (dupuytren) Extremity Program - [address], [facility] [place] [address] [place], [place] [phone] (Work) [phone] Social History Tobacco Use Types Packs/Day Years [...] documented as of this encounter Progress Notes Jazmine Reynolds PA - 12/30/2018 1300 EST PROBLEM: Right hand masses SUBJECTIVE: Jia Dow is a 48 y.o. right hand dominant female who presents to the office today for evaluation of her right espino hand lesion which has been present for about 5 months. She did not have an injury but she does have recurrent trauma to the area while mountain biking. Over the last few weeks she has also noticed a mass or a fullness on the dorsum of her hand. She is interested in having the palmar lesion excised because it is irritating while mountain biking. She denies any paresthesias into her fingers. ROS: A 10-point review of systems has been documented on the patient intake form and reviewed by me.This will be scanned into their chart. The past medical, family and social history have been reviewed in the patient chart. She is a never smoker. She is not a diabetic. 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 She has lots of hobbies and activities. She has a history of breast cancer. Past Medical History: Diagnosis Date ??? Breast cancer ([facility]) 07/2011 Past Surgical History: Procedure Laterality Date ??? BREAST RECONSTRUCTION ??? HAND TENDON SURGERY ??? MASTECTOMY Current Outpatient Medications on File Prior to Visit Medication Sig Dispense Refill ??? albuterol 90 mcg/actuation inhaler Inhale 1 Puff as directed every 4 hours as needed for Wheezing (Before exercise). 1 Inhaler 2 ??? buPROPion (WELLBUTRIN XL) [...] 1 ??? traZODone (DESYREL) 100 mg tablet TAKE 1 TABLET AT BEDTIME 90 Tab 3 No current facility-administered medications on file prior to visit. OBJECTIVE: There were no vitals taken for this visit. On physical exam, the patient is found to be a very plus and cooperative white female. Psych: She is alert and oriented x 3 with normal affect. Constitutional: She is well-developed and in no significant distress. Eyes: Sclerae clear. Resp: Breathing is regular and nonlabored without audible wheezing. Skin: On examination of the right hand the skin is intact. Hem: There is no ecchymosis. Msk: On examination of her right hand she has a mass which is fixed to the skin along the fourth rayof the palm. This is not significantly painful to palpation. She also has a mass over the dorsum of the hand between the fourth and fifth metacarpals distally. This is not significantly painful to palpation. Neuro-vascularly: Sensation intact with good cap refill. ASSESSMENT: 48-year-old female with right hand palmar Dupuytren's nodule and right dorsal hand mass PLAN: 1. Dr. Greenfield joined me for her visit to discuss if these could be excised. He recommended observation of the palmar nodule and noted that it is probably a result of the impact of mountain biking. Excising it could cause recurrence or worsening of this. It also may resolve on its own. She should continue to observe it. 2. We will obtain an MRI of her hand for further evaluation of dorsal hand mass. We expect that thiscould be involved with the extensor tendons but will know better with MRI evaluation. This also may resolve with time. 3. I will call her with the results of the MRI. 4. She voices understanding of the plan. She will call with any questions or concerns arise. Dr. Lazo was the attending physician available in the clinic today if needed. A consultation was not required. This note was prepared using voice recognition software and the EMR. There may be inadvertent errors and omissions. Jazmine Reynolds PA-C 12/30/2018 documented in this encounter Plan of Treatment Upcoming Encounters Date Type Specialty Care Team Description 12/16/2021 Appointment Infusion Therapy 04/15/2022 Office Visit Hematology and Oncology Poppy Felton PA-C [address] [phone] (Larissa felder) 05/30/2022 Office Visit Surgical Oncology Asa Cameron MD [address] [facility] 2 [place], [place] [address] (Wo rk) Scheduled Orders Name Type Priority Associated Diagnoses Order S chedule MR EXTREMITY HAND WO Imaging Routine Mass of rig ht hand Ordered: 12/30/2018 CONTRAST Palmar fascial fibromatosis (dupuytren) documented as of this encounter Visit Diagnoses Diagnosis Mass of right hand - Primary Palmar fascial fibromatosis (dupuytren) documented in this encounter Care Teams Soil Expert Relationship Specialty Start Date End Date Filomena Ochoa PA-C PCP - General 03/02/18 2 [place] [address] documented as of this encounter
--- OUTSIDE RECORDS SUMMARY | 2021-11-29 00:27 | XMS_ITS | Encounter Summary ---
:1970 Author Organization [facility] Address [address] [place] [address] Care Team Providers Name Role Phone Minor Jia Yasmeen GUDINO Primary Care Provider Unavailable Filomena Ochoa PA-C Primary Care Provider [phone] Encounter Details Date Type Department Care Team Description 01/13/2018 Historical Results [facility] Only [facility] MD Cindy Results [address] [facility] [address] [place] [address] [address] [place] [phone] (Wo rk) Social History Tobacco Use Types [...] Poppy Felton PA-C 111 [facility] 2 [place], [place] [address] (Wo rk) 05/30/2022 Office Visit Surgical Oncology Asa Cameron MD 111 [facility] 2 [place], [place] [address] (Wo rk) documented as of this encounter Procedures Procedure Name Priority Date/Time Associated Diagnosis Comme nts XR ELBOW LEFT 1-2 01/13/2018 11:39 Result s for this VIEWS EST procedure are i n the results section. documented in this encounter Results XR ELBOW LEFT 1-2 VIEWS (01/13/2018 11:39 EST) Specimen Narrative [facility] - 01/13/2018 11:43 EST ? EXAM: RADIOLOGY/ELBOW - LEFT - 2 VIEW ? EX. D/ (1049) ? CLINICAL INFORMATION: ? M25.522 ELBOW PAIN, LEFT ? INDICATION: M25.522 ELBOW PAIN, L EFT. ? COMPARISON: None. ? TECHNIQUE: Two views of the left elbow were obtained. ? FINDINGS: ? Mild swelling of the posterior el bow soft tissues. No elbow joint ? effusion. Questionable smooth dep ression of the lateral aspect of the ? radial head. A nondisplaced impac mervat fracture is not completely ? excluded. No dislocation. ? REPORT SIGNED IN OTHER VENDOR SYSTEM 01/13/2018 ?Reported B y: Jozef Weaver MD ? CC: ? Transcribed Date/Time: 01/13/2018 (1143) ? Bedspread Seamer: ? Printed Date/Time: 08/15/2018 (94 48) ? PAGE 1 ? Marina d Report ? Procedure Note Jozef Weaver MD - 12/30/2018 EXAM: RADIOLOGY/ELBOW - LEFT - 2 VIEW E X. D/ (1049) CLINICAL INFORMATION: M25.522 ELBOW PAIN, LEFT INDICATION: M25.522 ELBOW PAIN, LEFT. COMPARISON: None. TECHNIQUE: Two views of the left elbow were obtained. FINDINGS: Mild swelling of the posterior elbow so ft tissues. No elbow joint effusion. Questionable smooth depressio n of the lateral aspect of the radial head. A nondisplaced impacted fr acture is not completely excluded. No dislocation. REPORT SIGNED IN OTHER VENDOR SYSTEM 01/13/2018 Reported By: Jozef Weaver MD CC: Transcribed Date/Time: 01/13/2018 (1143 ) Bedspread Seamer: Printed Date/Time: 08/15/2018 (0692) PAGE 1 Signed Report Performing Organization Address City/State/ZIP Code Phon e Number [facility] documented in this encounter Visit Diagnoses Not on filedocumented in this encounter Care Teams Certified Drug Counselor Relationship Specialty Start Date End Date Jia Minor PA-C PCP - General 12/07/1703/01/18 Filomena Ochoa PA-C PCP - General 03/02/18 [address] [place] [address] documented as of this encounter
--- OUTSIDE RECORDS SUMMARY | 2021-11-29 00:27 | XMS_ITS | Encounter Summary ---
:1970 Author Organization [facility] Address [address] [place] [address] Care Team Providers Name Role Phone Filomena Ochoa PA-C Primary Care Provider Reason for Visit Reason Onset Date Comments Medications Refill 03/15/2018 Encounter Details Date Type Department Care Team Description 03/15/2018 Telephone [facility] Adult Nova Ochoa, Medications Refill Primary Care - Hallie GUDINO [address] [place] [address] [place], [place] [phone] (Wo rk) Social History Tobacco Use [...] 0.5 Take 1 Tab by mouth 2 30 Tab 1 10/20/2019 mg tabletIndications: times daily as needed Episodic mood disorder for Anxiety (PMS). ([facility] ([facility]) Use sparingly Daily Max: 1 mg documented in this encounter Miscellaneous Notes Telephone Encounter - Filomena Ochoa PA - 03/16/2018 0759 EST Changed rx to 0.5mg lorazepam 1 tab po bid prn #30 x 1 refill. eprescribed instead. Telephone Encounter - Eva Harrison RN - 03/15/2018 1558 EST Call to pharmacy Spoke lyly Ruiz Confirmed message from Cristiane Will send to Filomena Ochoa to advise on refill dosage for meds elephone Encounter - Cristiane Bautista - 03/15/2018 1529 EST Medication(s) Requested: Per Sara at [facility] in [facility], Lorazepam, 1 mg, is on back order. They need a new order foreither 0.5 mg, two daily or 2 mg, 1/2 daily. Preferred Pharmacy: [facility] Is patient out of medication? Unknown Last Visit Date with Ordering Provider: today Next Non-Acute Visit Date Scheduled with Care Team: not scheduled Cristiane Bautista 03/15/2018 15:30 documented in this encounter Plan of Treatment Upcoming Encounters Date Type Specialty Care Team Description 12/16/2021 Appointment Infusion Therapy 04/15/2022 Office Visit Hematology and Oncology Poppy Felton PA-C 111 [facility], [facility] 2 [place], [place] [phone] (Wo rk) 05/30/2022 Office Visit Surgical Oncology Asa Cameron MD 111 [facility], [facility] 2 [place], [place] [address] (Wo rk) documented as of this encounter Visit Diagnoses Diagnosis Depression, unspecified depression type Episodic mood disorder (HCC-CMS) (HCC) Unspecified episodic mood disorder documented in this encounter Discontinued Medications Medication Sig Discontinue Reason Start Date End Date LORazepam (ATIVAN) 1 mg Take 1 Tab by mouth 2 Reorder 03/15/19 19 03/16/2018 tabletIndications: times daily as needed Episodic mood disorder for Anxiety (PMS). (HCC-CMS) (HCC) Use sparingly Daily Max: 2 mg documented as of this encounter Care Teams Security Manager Relationship Specialty Start Date End Date Filomena Ochoa PA-C PCP - General 03/02/18 2 [place] [phone] documented as of this encounter
--- OUTSIDE RECORDS SUMMARY | 2021-11-29 00:27 | XMS_ITS | Encounter Summary ---
:1970 Author Organization [facility] Address [address] [place] [address] Care Team Providers Name Role Phone Filomena Ochoa PA-C Primary Care Provider [phone] Reason for Visit Reason Comments Mass right hand Cough during and after exercising Other exposure to radon Encounter Details Date Type Department Care Team Description 12/24/2018 Office Visit [facility] Dustin Fitzpatrick exe rcise-induced asthma (Primary Dx); Adult Primary Care - MD Holger Lipoma of right upper extremity; Hallie [address] Exposure to radon, initial encounter [address] [place] [address] [place] [phone] Social History Tobacco Use Types [...] Sign Reading Time Taken Comments Blood Pressure 114/82 12/24/2018 1327 EDT Pulse 76 12/24/2018 1327 EDT r Temperature 37.5 ??C (99.5 ??F) 12/24/2018 1327 EDT Respiratory Rate 16 12/24/2018 1327 EDT Oxygen Saturation - - Inhaled Oxygen Concentration - - Weight 63.5 kg (140 lb) 12/24/2018 1327 EDT Height - - Body Mass Index 21.93 10/15/2018 1148 EDT documented in this encounter [...] Inhale 1 Puff as 1 Inhaler 2 12/24/20182019 mcg/actuation inhaler directed every 4 hours as needed for Wheezing (Before exercise). documented in this encounter Progress Notes Dustin Fitzpatrick III, MD - 12/24/2018 1315 EDT S: Jia Dow is a 48 y.o. female with PMHx of anxiety disorder, depression, ADHD who presents with a CC of concerns on bumps on her right hand, radon exposure and exercised induce coughing spells. Together we discussed several acute concerns Bumps on back of right hand: Larissa notes the presence of a non-painful 1 cm wide bump/lump on the back of her right hand just inferior to the 2nd MCP joint. She states it has been present for several months. She denies any pain around the lump, erythema or recent changes in size. SHe notes the presence of similar bumps/lumps that were daignosed as Lipomas, two on her right upper extremity and similar in size to the lesion on her hand. She reports that she [facility] to address the upper extremity lesions and just wants to know if she should be concerned aboutthe lesion on her hand. Radon exposure: Reportedly just informed by father that childhood home was tested for Radon and found to have very high levels. States she had been living and out of the home for 10-15 years. Was reportedly told be the [place] department of health to talk to her PCP about lung cancer screening. Confirms a history of breast cancer, but thankfully denies any history of tobacco use. She denies any unexplained weight loss, night sweats, lymphadenopathy or shortness of breath. Exercised induce coughing fits: Reports for several years has had intermittent coughing spells with work-outs. Doesn't occur after every work-out, but notes frequently she develops a coughing fit that lasts over 30 minutes. Feels like she has something in her throat. Denies SOB and denies occurrence of symptoms at rest. Does note similar symptoms will occur in winter with breathing in cold air. Neverbeen diagnosed with asthma. ROS as above Medications and history reviewed. Current Outpatient Medications: albuterol 90 mcg/actuation inhaler buPROPion (WELLBUTRIN XL) 300 mg XL tablet lisdexamfetamine (VYVANSE) 40 mg capsule LORazepam (ATIVAN) 0.5 mg tablet traZODone (DESYREL) 100 mg tablet No current facility-administered medications for this visit. O: BP 114/82 (BP Cuff Location: Left arm, Patient Position: Sitting, BP Cuff Sizes: Adult, regular) Pulse 76 Comment: r Temp 37.5 ??C (99.5 ??F) (Tympanic) Resp 16 Wt 63.5 kg (140 lb) BMI 21.93 kg/m?? Gen: Well appearing adult female, NAD HEENT: EOMI, PERRL, oropharynx moist, conjunctiva pink, no scleral injection/ icterus Neck: no cervical lymphadenopathy CV: RRR, no murmurs, rubs or gallops Pulm: CTAB, good air movement, no wheezes, rales, or rhonchi Extrem: no edema, warm and well perfused Skin: No rashes or erythema, intact. Small 1 cm wide firm lesion/lump inferior to 2nd MCP joint on back of right hand. Non-tender to palpation Recent Labs/Imaging: Reviewed in Epic A and P: Jia was seen today for right hand mass, cough and radon exposure Coughing fits: Highest suspicion for Mild exercise-induced asthma - Will trial use of albuterol with a spacer, 15-20 minutes prior to exercise. If improvement in symptoms then the diagnosis is likely confirmed as exercise induced asthma - If albuterol is ineffective, then low threshold for referral for PFTs with bronchoconstriction testing - If PFTs come back unremarkable, then would refer to ENT for chronic cough work-up Lipoma of right upper extremity: Benign lesion of right hand - Will continue to monitor - Encouraged patient to also follow-up about it with dermatology Exposure to radon, initial encounter: Notable for her past medical history, however radon exposure alone is not indicative for yearly low dose CT lung scans. As far as my reading into the literature can tell, only a significant smoking history of >25 pack years justifies yearly radiation exposure with a CT scan to screen for lung cancer. - Will continue to monitor - Encouraged patient to return to clinic if respiratory symptoms develop (SOB, exercise intolerance,etc.) F/u: Return if symptoms worsen or fail to improve. Dustin Fitzpatrick III, MD 12/26/2018 12:32 documented in this encounter Plan of Treatment Upcoming Encounters Date Type Specialty Care Team Description 12/16/2021 Appointment Infusion Therapy 04/15/2022 Office Visit Hematology and Oncology Poppy Felton PA-C [address] [phone] (Wo rk) 05/30/2022 Office Visit Surgical Oncology Asa Cameron MD [address] [phone] (Wo rk) documented as of this encounter Visit Diagnoses Diagnosis Mild exercise-induced asthma - Primary Lipoma of right upper extremity Lipoma of other specified sites Exposure to radon, initial encounter documented in this encounter Orders Equipment Count Last Ordered Date First Ordered Date INHALER SPACER 1 12/24/2018 documented in this encounter Care Teams Natural Gas Basis Trader Relationship Specialty Start Date End Date Filomena Ochoa PA-C PCP - General 03/02/18 2 [place] [address] documented as of this encounter
--- OUTSIDE RECORDS SUMMARY | 2021-11-29 00:27 | XMS_ITS | Encounter Summary ---
:1970 Author Organization [facility] Address [address] [place] [address] Care Team Providers Name Role Phone Filomena Ochoa PA-C Primary Care Provider [phone] Encounter Details Date Type Department Care Team Description 03/30/2019 Orders Only [facility] Daniel Pichardo MD Radiology - Main Cam pus [address] [phone] (Wo rk) Social History Tobacco Use Types [...] Poppy Felton PA-C 111 [facility] [address] [place], [place] [phone] (Wo rk) 05/30/2022 Office Visit Surgical Oncology Asa Cameron MD [address] [phone] (Wo rk) documented as of this encounter Visit Diagnoses Not on filedocumented in this encounter Care Teams It Sales Executive Relationship Specialty Start Date End Date Filomena Ochoa PA-C PCP - General 03/02/18 2 [place] [address] documented as of this encounter
--- OUTSIDE RECORDS SUMMARY | 2021-11-29 00:27 | XMS_ITS | Encounter Summary ---
:1970 Author Organization [facility] Address [address] [place] [address] Care Team Providers Name Role Phone Filomena Ochoa PA-C Primary Care Provider [phone] Encounter Details Date Type Department Care Team Description 04/14/2018 Hospital Encounter [facility] - Roman Chino MD [place] [address] [address] [place], [place] [address] [place] [phone] (Wo rk) Social History Tobacco Use Types [...] decisions? documented as of this encounter Discharge Diagnoses Diagnosis Z98.82 Breast implant status-Z98.82[ICD- 10-CM] documented in this encounter Medications at Time of Discharge Medication Sig Dispensed Refills Start Date End Date buPROPion (WELLBUTRIN XL) TAKE 1 TABLET DAILY 90 Tab 3 0 08/24/2017 09/09/2018 300 mg XL tabletIndications: Depression, unspecified depression type lisdexamfetamine (VYVANSE) Take 1 Cap by mouth 90 Cap 0 04/08/2018 07/06/2018 40 mg capsule every morning for 90 days. Daily Max: 40 mg LORazepam (ATIVAN) 0.5 mg Take 1 Tab by mouth 30 Tab 1 0 03/16/2018 10/20/2019 tabletIndications: 2 times daily as Episodic mood disorder needed for Anxiety (HCC-CMS) (HCC) (PMS). Use sparingly Daily Max: 1 mg traZODone (DESYREL) 100 mg Take 1 Tab by mouth 4 Tab 0 12/21/2017 09/10/2018 tablet at bedtime. documented as of this encounter Discharge Disposition Disposition Code Departure Means Destination Auto Discharge Home documented in this encounter Plan of Treatment Upcoming Encounters Date Type Specialty Care Team Description 12/16/2021 Appointment Infusion Therapy 04/15/2022 Office Visit Hematology and Oncology Poppy Felton PA-C [address] [phone] (Wo rk) 05/30/2022 Office Visit Surgical Oncology Asa Cameron MD [address] [phone] (Wo rk) documented as of this encounter Visit Diagnoses Not on filedocumented in this encounter Care Teams Division Chief Relationship Specialty Start Date End Date Filomena Ochoa PA-C PCP - General 03/02/18 2 [place] [phone] documented as of this encounter
--- OUTSIDE RECORDS SUMMARY | 2021-11-29 00:27 | XMS_ITS | Encounter Summary ---
:1970 Author Organization [facility] Address [address] [place] [address] Care Team Providers Name Role Phone Filomena Ochoa PA-C Primary Care Provider [phone] Encounter Details Date Type Department Care Team Description 03/26/2018 Results Only Imaging [facility]- Unknown, PRISM Provider, Social History Tobacco Use Types Packs/Day Years [...] and Oncology Poppy Felton PA-C [address] [phone] (Wo rk) 05/30/2022 Office Visit Surgical Oncology Asa Cameron MD [address] [phone] (Wo rk) Pending Results Name Type Priority Associated Diagnoses Date/Ti me OUTSIDE IMAGES - PLAIN Imaging 03/26 14:26 EST FILM MSK documented as of this encounter Visit Diagnoses Not on filedocumented in this encounter Care Teams Deputy [place] Marshal Relationship Specialty Start Date End Date Filomena Ochoa PA-C PCP - General 03/02/18 2 [place] [phone] documented as of this encounter
--- OUTSIDE RECORDS SUMMARY | 2021-11-29 00:27 | XMS_ITS | Encounter Summary ---
:1970 Author Organization [facility] Address [address] [place] [address] Care Team Providers Name Role Phone Filomena Ochoa PA-C Primary Care Provider [phone] Reason for Visit Reason Onset Date Comments Appointment Related 03/09/2018 Encounter Details Date Type Department Care Team Description 03/09/2018 Telephone [facility] Roman Chino Appoint ment Related Plastic, Reconstructive & MD [facility] Cosmetic Surgery - [address], [address] [address] [place] [address] (Work) [phone] Social History Tobacco Use Types Packs/Day Years [...] Notes Telephone Encounter - Radha Mcginnis - 03/18/2018 0814 EST Left message for patient to confirm is she is able to make the MRI apt for 03/24. Asked her to call back at her convenience. elephone Encounter - Radha Mcginnis - 03/11/2018 1128 EST Peer to peer with Dr. Chino provided an authorization. Call placed to patient with message left letting her know the auth has been obtained but the expiration date is 04/22/18. I know she had mentionedshe was going to be away so I asked that she call me back to discuss timing. elephone Encounter - Radha Mcginnis - 03/10/2018 1016 EST Patient called back stating that she had made multiple calls this morning and found out that her MRIhad been rescheduled. I answered that yes it had been rescheduled and a message was left for her yesterday asking her to call back to discuss. Due to the insurance denial and the peer to peer taking place on 03/11 we would have to move the MRI to a date after 03/11. The new apt provided by the MRI dept was 03/24. Patient states there is a chance she will be leaving the state for a month on either 03/22 or 03/27. If she is leaving 03/22 she will call radiology scheduling and reschedule the MRI to a date when she is back in [place]. I told her I would call her as soon as I heard from the insurance the result of the peer to peer. Telephone Encounter - Radha Mcginnis - 03/09/2018 1552 EST Patient has been contacted and informed of a MRI scheduled Saturday, March 24, 2018 at 12:00 PM. Patient was been informed to arrive 30 minutes prior. Location: [employer] Location. Patients insurance is requiring a peer to peer scheduled for 03/11 which is the same date she is scheduled for MRi. Patient has been rescheduled to 03/24 and a message left for patient asking them to call back to discuss. documented in this encounter Plan of Treatment Upcoming Encounters Date Type Specialty Care Team Description 12/16/2021 Appointment Infusion Therapy 04/15/2022 Office Visit Hematology and Oncology Poppy Felton PA-C 111 [facility], [facility] 2 [place], [place] [address] (Wo rk) 05/30/2022 Office Visit Surgical Oncology Asa Cameron MD 111 [facility] 2 [place], [place] [address] (Wo rk) documented as of this encounter Visit Diagnoses Not on filedocumented in this encounter Care Teams Environmental Monitoring Technician Relationship Specialty Start Date End Date Filomena Ochoa PA-C PCP - General 03/02/18 2 [place] [address] documented as of this encounter
--- OUTSIDE RECORDS SUMMARY | 2021-11-29 00:27 | XMS_ITS | Encounter Summary ---
:1970 Author Organization [facility] Address [address] [place] [address] Care Team Providers Name Role Phone Filomena Ochoa PA-C Primary Care Provider [phone] Reason for Visit Reason Onset Date Comments Pharyngitis 12/22/2018 Personal Problem 12/22/2018 Pt did not want to d iscuss over the phone Encounter Details Date Type Department Care Team Description 12/22/2018 Telephone [facility] Filomena Ochoar yngitis; Personal Adult Primary Care - SHAHAB Wolf Problem (Pt did not Hallie [address] [place] [address] want to discuss over [address] [place] [address] the phone) [place] [phone] Social History Tobacco Use Types Packs/Day Years [...] Telephone Encounter - Filomena North RN - 12/22/2018 1430 EDT Patient reports coughing without chest tightness while exercising. She had been contacted by the department of health because her childhood home tested very high for radon and they were suggesting a lung scan. Patient is getting some very small lumps on her hand removed next week, but she has a new one and just want to make sure it looks like the same thing. Requesting to be seen by Dr Fitzpatrick, she is unsure if she would want to switch to him as PCP in the future. elephone Encounter - Jenna Gordillo - 12/22/2018 1145 EDT Reason for Call: Pharyngitis and Personal Problem (Pt did not want to discuss over the phone) Summary/Symptoms: Pt would like to have a lung scan but did not want to go in to details. SHe is requesting to see Filomena Ochoa as she is currently her PCP Onset and Duration? Appointment Offered? No Jenna Gordillo 12/22/2018 11:45 documented in this encounter Plan of Treatment Upcoming Encounters Date Type Specialty Care Team Description 12/16/2021 Appointment Infusion Therapy 04/15/2022 Office Visit Hematology and Oncology Poppy Felton, SHAHAB [address] [place] [facility], Level 2 [place], [place] [phone] (Wo rk) 05/30/2022 Office Visit Surgical Oncology Asa Cameron MD 111 [facility], [facility], Level 2 [place], [place] [address] (Wo rk) documented as of this encounter Visit Diagnoses Not on filedocumented in this encounter Care Teams Adolescent Counselor Relationship Specialty Start Date End Date Filomena Ochoa PA-C PCP - General 03/02/18 2 [place] [address] documented as of this encounter
--- OUTSIDE RECORDS SUMMARY | 2021-11-29 00:27 | XMS_ITS | Encounter Summary ---
:1970 Author Organization [facility] Address [address] [place] [address] Care Team Providers Name Role Phone Filomena Ochoa PA-C Primary Care Provider [phone] Reason for Visit Reason Onset Date Comments Medications Refill 12/10/2018 Encounter Details Date Type Department Care Team Description 12/10/2018 Refill [facility] Adult Nova Ochoa, Medications Refill Primary Care - Hallie GUDINO [address] [place] [address] [place] [address] [phone] [address] (Wo rk) Social History Tobacco Use [...] Take 1 Cap by 84 Cap 0 201803/28/2019 40 mg capsule mouth every morning for 84 days. Daily Max: 40 mg documented in this encounter Miscellaneous Notes Telephone Encounter - Filomena Mcnair PA - 12/13/2018 1334 EDT Eprescribed. elephone Encounter - Tara Saavedra RN - 12/12/2018 1157 EDT Medication(s) Requested: Varrone Preferred Pharmacy: [facility] Is patient out of medication? Unknown Last Refill Date: 09/10/18 Last Visit Date with Ordering Provider: 10/15/18 Next Non-Acute Visit Date Scheduled with Care Team: No. Tara Saavedra RN 12/12/2018 11:57 elephone Encounter - Tara Saavedra RN - 12/12/2018 1157 EDT From: Jia Dow Sent: 12/10/2018 14:42 EDT Subject: Medication Renewal Request Jia Dow would like a refill of the following medications: lisdexamfetamine (VYVANSE) 40 mg capsule [TANIYA Menon] Patient Comment: Please note this is a 3 month supply, as usual. Thank you! Preferred pharmacy: [facility] [place], [place] - [address] AT [facility] documented in this encounter Plan of Treatment Upcoming Encounters Date Type Specialty Care Team Description 12/16/2021 Appointment Infusion Therapy 04/15/2022 Office Visit Hematology and Oncology Poppy Feltno PA-C 111 [facility], [facility] 2 [place], [place] [address] (Wo rk) 05/30/2022 Office Visit Surgical Oncology Asa Cameron MD 111 [facility], [facility] 2 [place], [place] [address] (Wo rk) documented as of this encounter Visit Diagnoses Not on filedocumented in this encounter Discontinued Medications Medication Sig Discontinue Reason Start Date End Date lisdexamfetamine (VYVANSE) Take 1 Cap by Reorder 09/10/2018 12/10/2018 40 mg capsule mouth every morning for 84 days. Daily Max: 40 mg documented as of this encounter Additional Health Concerns Infection Onset Date Last Indicated Resolved Time R/O COVID-19 10/16/2019 10/16/2019 10/21/2019 22:15 EDT documented as of this encounter Care Teams Specialty Molder Relationship Specialty Start Date End Date Filomena Ochoa PA-C PCP - General 03/02/18 2 [place] [address] documented as of this encounter
--- OUTSIDE RECORDS SUMMARY | 2021-11-29 00:27 | XMS_ITS | Encounter Summary ---
:[address] [facility] Address [address] [place] [address] Care Team Providers Name Role Phone Philip Schulz MD Primary Care Provider Reason for Visit Reason Comments Other Encounter Details Date Type Department Care Team Description 10/17/2017 Refill [facility] Adult Philip Hopkins MD Other Primary Care - [address] [address] [place] [address] [phone] Social History Tobacco Use Types Packs/Day Years [...] this encounter Miscellaneous Notes Telephone Encounter - Yonathan Vallejo RN - 10/19/2017 1042 EDT Requested Prescriptions Pending Prescriptions Disp Refills ??? traZODone (DESYREL) 100 mg tablet [Pharmacy Med Name: TRAZODONE TAB 100MG] 90 Tab 1 Sig: TAKE 1 TABLET AT BEDTIME Pharmacy: [facility] Last Refill Date: 08/24/17 Last Visit Date: 09/25/17 Next Non-Acute Visit Date Scheduled with Care Team: No. Visit date not found YONATHAN VALLEJO RN 10/19/2017 10:42 Patient received 90 day supply with 3 refills to this pharmacy on 08/24/17 Current request denied documented in this encounter Plan of Treatment Upcoming Encounters Date Type Specialty Care Team Description 12/16/2021 Appointment Infusion Therapy 04/15/2022 Office Visit Hematology and Oncology Poppy Felton PA-C 111 [facility], [facility] 2 [place], [place] [address] (Wo bradford) 05/30/2022 Office Visit Surgical Oncology Asa Cameron MD 111 [facility], [facility] 2 [place], [place] [address] (Wo rk) documented as of this encounter Visit Diagnoses Not on filedocumented in this encounter Care Teams Gimp Buttonhole Machine Operator Relationship Specialty Start Date End Date Philip Schulz MD PCP - General 05/14/16 12/06/[address] [place] [address] [address] [place], FOUZ[place] [phone] documented as of this encounter
--- OUTSIDE RECORDS SUMMARY | 2021-11-29 00:27 | XMS_ITS | Encounter Summary ---
:1970 Author Organization [facility] Address [address] [place] [address] Care Team Providers Name Role Phone Jia Minor PA-C Primary Care Provider Unavailable Encounter Details Date Type Department Care Team Description 01/13/2018 [facility] [phone] [place] [address] (Work) [place] [address] Social History Tobacco Use Types Packs/Day Years [...] Date buPROPion (WELLBUTRIN XL) TAKE 1 TABLET 90 Tab 3 018 09/09/2018 300 mg XL DAILY tabletIndications: Depression, unspecified depression type lisdexamfetamine (VYVANSE) Take 1 Cap by 90 Cap 0 201703/15/2018 40 mg capsule mouth every morning for 90 days. Daily Max: 40 mg LORazepam (ATIVAN) 1 mg Take 1 Tab by 30 Tab 0 7 03/15/2018 tabletIndications: Episodic mouth 2 times mood disorder (HCC-CMS) daily as needed (HCC) for Anxiety (PMS). Daily Max: 2 mg traZODone (DESYREL) 100 mg Take 1 Tab by 4 Tab 0 201709/10/2018 tablet mouth at bedtime. documented as of this encounter Discharge Disposition Disposition Code Departure Means Destination Home or Self Correction documented in this encounter Plan of Treatment Upcoming Encounters Date Type Specialty Care Team Description 12/16/2021 Appointment Infusion Therapy 04/15/2022 Office Visit Hematology and Oncology Poppy Felton PA-C [address] [facility] 2 [place], [place] [address] (Wo rk) 05/30/2022 Office Visit Surgical Oncology Asa Cameron MD [address] [facility] 2 [place], [place] [address] (Wo rk) documented as of this encounter Visit Diagnoses Not on filedocumented in this encounter Care Teams Advertising Agent Relationship Specialty Start Date End Date Jia Minor PA-C PCP - General 12/07/1703/01/18 documented as of this encounter
--- OUTSIDE RECORDS SUMMARY | 2021-11-29 00:27 | XMS_ITS | Encounter Summary ---
:1970 Author Organization [facility] Address [address] [place] [address] Care Team Providers Name Role Phone Filomena Ochoa PA-C Primary Care Provider [phone] Encounter Details Date Type Department Care Team Description 08/30/2018 Results Only [facility] Asa Cameron MD Imaging Surgical Oncology - 111 [facility], [address], Level 2 [place], [place] [address] [place] [address] [phone] (Wo rk) Social History Tobacco Use [...] and Oncology Poppy Felton PA-C 111 [facility], [facility], [facility] 2 [place], [place] [address] (Wo rk) 05/30/2022 Office Visit Surgical Oncology Asa Cameron MD 111 [facility] 2 [place], [place] [address] (Wo rk) documented as of this encounter Procedures Procedure Name Priority Date/Time Associated Diagnosis Comme [facility] 08/30/2018 16:44 Results for this BREAST-BREAST CARE EDT procedure are in CENTER ONLY the results section. documented in this encounter Results [facility] BREAST-BREAST CARE CENTER ONLY (08/30/2018 16:44 EDT) Anatomical Region Laterality Modality Other Specimen Narrative [facility] BREAST IMAGING MAIN C AMPUS - 08/30/2018 16:44 EDT See Notes Tab. Procedure Note RECREATION COORDINATOR, IMAGING - 08/30/2018 See Notes Tab. Performing Organization Address City/State/ZIP Code Phon e Number [facility] BREAST IMAGING [facility] documented in this encounter Visit Diagnoses Not on filedocumented in this encounter Care Teams Dot Net Developer Relationship Specialty Start Date End Date Filomena Ochoa PA-C PCP - General 03/02/18 2 [place] [phone] documented as of this encounter
--- OUTSIDE RECORDS SUMMARY | 2021-11-29 00:27 | XMS_ITS | Encounter Summary ---
:1970 Author Organization [facility] Address [address] [place] [address] Care Team Providers Name Role Phone Filomena Ochoa PA-C Primary Care Provider [phone] Encounter Details Date Type Department Care Team Description 03/30/2019 Phlebotomy Only [facility] ED Center 2 Copyright Expert, Acc Recurr ent breast Phlebotomy Phlebotomy cancer, right 111 [facility] (Primary [place], [place] Dx) [id number] Social History Tobacco Use Types Packs/Day Years [...] Hematology and Oncology Poppy Felton PA-C [address] [address] (Wo rk) 05/30/2022 Office Visit Surgical Oncology Asa Cameron MD [address] [phone] (Wo rk) documented as of this encounter Procedures Procedure Name Priority Date/Time Associated Comments Diagnosis COMPLETE BLOOD COUNT Routine 03/30/2019 14:28 Recurrent breast Results for this AND DIFFERENTIAL EST cancer, right procedure are in ([facility]) the results section. COMPREHENSIVE Routine 03/30/2019 14:28 Recurrent breast Result s for this METABOLIC PANEL (CMP) EST cancer, right proce dure are in ([facility]) the results section. documented in this encounter Results COMPREHENSIVE METABOLIC PANEL (CMP) (03/30/2019 14:28 EST) Sodium 138 136 - 145 [facility] mEq/L [facility] Potassium 4.5 3.5 - 5.0 [facility] m[facility] Chloride 109 96 - 110 [facility] mEq/L [facility] CO2 Total 23 22 - 32 mEq/L [facility] Glucose 90 70 - 100 [facility] mg/dL [facility] BUN 20 10 - 26 mg/dL [facility] Creatinine 0.78 0.52 - 1.04 [facility] mg/dL [facility] eGFR 91Comment: eGFR >60 [facility] calculated using mL/min/1.73m2 [facility] CKD-EPI equation SERVICES for non- Americans. Multiply eGFR by 1.16 for patients. Total Protein 6.6 6.3 - 8.2 [facility] g/dL [facility] Albumin 4.1 3.4 - 4.9 [facility] g/dL [facility] Alkaline 45 38 - 126 U/L [facility] Phosphatase [facility] AST 25 15 - 46 U/L [facility] SERVICES ALT 17 <35 U/L [facility] SERVICES Bilirubin, Total <0.5 <1.4 mg/dL [facility] SERVICES Calcium 10.1 8.5 - 10.5 [facility] mg/dL [facility] Calculated Calcium 10.0 8.5 - 10.5 [facility] mg/dL [facility] Specimen Blood - Venous blood (substance) Narrative [facility] LABORATORY SERVICES - 03/30/2019 16:09 EST 2 Performing Organization Address City/State/[facility] Code Phon e Number [facility] LABORATORY [address] [place] [address] SERVICES (ABNORMAL) COMPLETE BLOOD COUNT AND DIFFERENTIAL (03/30/2019 14:28 EST) Pathologist Sig nature WBC 5.60 4.00 - 12.40 [facility] K/[facility] LABORATORY SERVICES RBC 4.61 3.86 - 5.04 [facility] LABORATORY SERVICES Hemoglobin 14.1 11.6 - 15.2 [facility] gm/dL LABORATORY SERVICES HCT 42.2 34.9 - 44.4 % [facility] LABORATORY SERVICES MCV 92 81 - 98 fl [facility]ORY SERVICES MCH 30.6 26.7 - 33.3 pg [facility] LABORATORY SERVICES MCHC 33.4 32.1 - 35.9 [facility] gm/dL LABORATORY SERVICES RDW-CV 12.8 <14.7 % [facility] LABORATORY SERVICES RDW-SD 42.5 <50.4 fl [facility] LABORATORY SERVICES PLT 212 141 - 377 /[facility] LABORATORY SERVICES MPV 9.3 (L) 9.5 - 12.7 fl [facility] LABORATORY SERVICES Neutrophils 52.9 % [facility] LABORATORY SERVICES Lymphocytes 35.5 % [facility] LABORATORY SERVICES Monocytes 9.3 % [facility] LABORATORY SERVICES Eosinophils 1.6 % [facility] LABORATORY SERVICES Basophils 0.5 % [facility]ORATORY SERVICES Immature Grans 0.2 % [facility] LABORATORY SERVICES Absolute Neutrophils 2.96 2.20 - 8.85 [facility] K/[facility] LABORATORY SERVICES Absolute Lymphocytes 1.99 1.09 - 3.30 [facility] K/[facility] LABORATORY SERVICES Absolute Monocytes 0.52 0.10 - 0.80 [facility] LABORATORY SERVICES Absolute Eosinophils 0.09 0.03 - 0.61 [facility] K/[facility] LABORATORY SERVICES Absolute Basophils 0.03 0.01 - 0.11 [facility] K/[facility] LABORATORY SERVICES Absolute Immature 0.01 0.00 - 0.06 [facility] Grans /[facility] LABORATORY SERVICES Type of Differential: Auto [facility]ORY SERVICES Specimen Blood - Venous blood (substance) Performing Organization Address City/State/ZIP Code Phon e Number [facility] [address] [place] [address] SERVICES documented in this encounter Visit Diagnoses Diagnosis Recurrent breast cancer, right (HCC-CMS) (HCC) - Primary documented in this encounter Care Teams Senior Operations Manager Relationship Specialty Start Date End Date Filomena Ochoa PA-C PCP - General 03/02/18 2 [place] [phone] documented as of this encounter
--- OUTSIDE RECORDS SUMMARY | 2021-11-29 00:27 | XMS_ITS | Encounter Summary ---
:1970 Author Organization [facility] Address [address] [place] [address] Care Team Providers Name Role Phone Jai Minor PA-C Primary Care Provider Unavailable Reason for Visit Reason Onset Date Comments Appointment Related 12/24/2017 Encounter Details Date Type Department Care Team Description 12/24/2017 Telephone [facility] Roman Chino ment Related Plastic, Reconstructive & MD [facility] Cosmetic Surgery - [address], [address] [place] [address] [address] [place] [address] (Work) [phone] Social History Tobacco Use Types Packs/Day Years [...] Notes Telephone Encounter - Radha Mcginnis - 12/30/2017 0811 EST Spoke to patient, confirmed date/time/location of MRI elephone Encounter - Radha Mcginnis - 12/28/2017 0819 EST Message left for patient to call back to discuss MRI apt and f/u apt to review the results. Telephone Encounter - Radha Mcginnis - 12/24/2017 0913 EDT Images from the original note were not included. documented in this encounter Plan of Treatment Upcoming Encounters Date Type Specialty Care Team Description 12/16/2021 Appointment Infusion Therapy 04/15/2022 Office Visit Hematology and Oncology Poppy Felton PA-C [address] [phone] (Wo rk) 05/30/2022 Office Visit Surgical Oncology Asa Cameron MD [address] [place] [address] [address] (Wo rk) documented as of this encounter Visit Diagnoses Not on filedocumented in this encounter Care Teams Nursing Clinical Director Relationship Specialty Start Date End Date Jia Minor PA-C PCP - General 12/07/1703/01/18 documented as of this encounter
--- OUTSIDE RECORDS SUMMARY | 2021-11-29 00:27 | XMS_ITS | Encounter Summary ---
:1970 Author Organization [facility] Address [address] [place] [address] Care Team Providers Name Role Phone Philip Schulz MD Primary Care Provider Jia Minor PA-C Primary Care Provider Unavailable Reason for Visit Reason Onset Date Comments Breast Problem 11/20/2017 right breast Encounter Details Date Type Department Care Team Description 11/20/2017 Telephone [facility] Asa Cameron MD Breast Problem (right Surgical Oncology - 111 [facility] breast) Main [facility], [address], [address] [place], [place] [address] [place] [address] [phone] (Wo rk) Social History Tobacco Use [...] this encounter Miscellaneous Notes Telephone Encounter - Ilana Mercado RN - 11/20/2017 0959 EDT Patient given appt with Dr. Cameron on 11/24 @ 1130, check in at 1115. She voiced understanding, no barriers. ILANA MERCADO RN elephone Encounter - Audelia Heaton V. - 11/20/2017 0836 EDT Patient has found a new lump on her right breast right next to where her last tumor was. She is in [place] today and is hoping to be seen. documented in this encounter Plan of Treatment Upcoming Encounters Date Type Specialty Care Team Description 12/16/2021 Appointment Infusion Therapy 04/15/2022 Office Visit Hematology and Oncology Poppy Felton PA-C [address] [phone] (Wo rk) 05/30/2022 Office Visit Surgical Oncology Asa Cameron MD [address] [address] (Wo rk) documented as of this encounter Visit Diagnoses Not on filedocumented in this encounter Care Teams Work Force Advisor Relationship Specialty Start Date End Date Philip Schulz MD PCP - General 05/14/16 12/06/[address] [place] [address] Jia Minor PA-C PCP - General 12/07/1703/01/18 documented as of this encounter
--- OUTSIDE RECORDS SUMMARY | 2021-11-29 00:27 | XMS_ITS | Encounter Summary ---
:1970 Author Organization [facility] Address [address] [place] [address] Care Team Providers Name Role Phone Philip Schulz MD Primary Care Provider Reason for Visit Reason Onset Date Comments Medications Refill 09/28/2017 Encounter Details Date Type Department Care Team Description 09/28/2017 Refill [facility] Adult Philip Hopkins MD Medications Refill Primary Care - Hallie [address] [place] [phone] [place] [address] [phone] Social History Tobacco Use Types Packs/Day Years [...] Date lisdexamfetamine (VYVANSE) Take 1 Cap by 90 Cap 0 201701/07/2018 40 mg capsule mouth every morning for 90 days. Daily Max: 40 mg documented in this encounter Miscellaneous Notes Telephone Encounter - Eva Harrison RN - 09/30/2017 1022 EDT Per pts note; pended rx for 90 day rx Routed to Dr Ellisectronically signed by Eva Harrison RN at 09/30/2017 10:23 EDTTelephone Encounter - Filomena Ochoa PA - 09/29/2017 1942 EDT I can write a 7 day supply but suspect pt would want a 28 day supply since current PCP is in office this week. elephone Encounter - Lucero Ly RN - 09/29/2017 1120 EDT Requested Prescriptions Pending Prescriptions Disp Refills ??? lisdexamfetamine (VYVANSE) 40 mg capsule 28 Cap 0 Sig: Take 1 Cap by mouth every morning for 28 days. Earliest Fill Date: 09/29/17 Daily Max: 40 mg [facility] Last Refill Date: 09-09-17 Last Visit Date: 08-24-17. Next Non-Acute Visit Date Scheduled with Care Team: No. Visit date not found Lucero Ly RN 09/29/2017 11:20 Telephone Encounter - Melanie Oconnor RN - 09/28/2017 1658 EDT From: Jia Dow To: Philip Schulz MD Sent: 09/28/2017 15:11 EDT Subject: Medication Renewal Request Original authorizing provider: MD Jia Francisco would like a refill of the following medications: lisdexamfetamine (VYVANSE) 40 mg capsule [Philip Schulz MD] [facility] [place], [place] - [address] [facility] Comment: Please order a 90 day supply of this medication to [facility] mail service. It is much more expensive for me to pay for a 28-30 day supply. I regularly received the [address] Perdomo wasmy primary care physician. Thank you. documented in this encounter Plan of Treatment Upcoming Encounters Date Type Specialty Care Team Description 12/16/2021 Appointment Infusion Therapy 04/15/2022 Office Visit Hematology and Oncology Poppy Felton PA-C [address] [phone] (Wo rk) 05/30/2022 Office Visit Surgical Oncology Asa Cameron MD [address] [phone] (Wo rk) documented as of this encounter Visit Diagnoses Not on filedocumented in this encounter Discontinued Medications Medication Sig Discontinue Reason Start Date End Date lisdexamfetamine (VYVANSE) Take 1 Cap by 10/07/2017 09/30/2017 40 mg capsule mouth every morning for 28 days. Daily Max: 40 mg lisdexamfetamine (VYVANSE) Take 1 Cap by 11/04/2017 09/30/2017 40 mg capsule mouth every morning for 28 days. Daily Max: 40 mg lisdexamfetamine (VYVANSE) Take 1 Cap by Reorder 09/09/2017 09/28/2017 40 mg capsule mouth every morning for 28 days. Daily Max: 40 mg documented as of this encounter Care Teams Lead Coater Relationship Specialty Start Date End Date Philip Schulz MD PCP - General 05/14/16 12/06/[address] [place] [address] [place] [address] documented as of this encounter
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
--- OUTSIDE RECORDS SUMMARY | 2021-11-29 00:27 | XMS_ITS | Encounter Summary ---
:1970 Author Organization [facility] Address [address] [place] [address] Care Team Providers Name Role Phone Filomena Ochoa PA-C Primary Care Provider [phone] Encounter Details Date Type Department Care Team Description 03/30/2019 Ancillary Procedure [facility] Surgical Oncology - Main [address] [address] Social History Tobacco Use Types [...] Hematology and Oncology Poppy Felton PA-C [address] [facility], [facility], [facility] [address] [place], [place] [phone] (Wo rk) 05/30/2022 Office Visit Surgical Oncology Asa Cameron MD 111 [facility], [facility] [address] [place], [place] [phone] (Wo rk) documented as of this encounter Procedures Procedure Name Priority Date/Time Associated Diagnosis Comme nts [facility] BREAST - Routine 03/30/2019 15:32 Results for this BREAST CARE CENTER EST procedure are in ONLY the results section. documented in this encounter Results [facility] BREAST - BREAST CARE CENTER ONLY (03/30/2019 15:32 EST) Specimen Narrative POINT OF CARE [facility] - 03/30/2019 15:[address] This is a non-reportable exam. Performing Organization Address City/State/ZIP Code Phon e Number [facility] POINT OF CARE [facility] documented in this encounter Visit Diagnoses Not on filedocumented in this encounter Care Teams Hide Sorter Relationship Specialty Start Date End Date Filomena Ochoa PA-C PCP - General 03/02/18 [address] [place] [phone] documented as of this encounter
--- OUTSIDE RECORDS SUMMARY | 2021-11-29 00:27 | XMS_ITS | Encounter Summary ---
:1970 Author Organization [facility] Address [address] [place] [address] Care Team Providers Name Role Phone Filomena Ochoa PA-C Primary Care Provider [phone] Encounter Details Date Type Department Care Team Description 04/07/2019 Orders Only [facility] Surgical Jenifer Gary, sausage maker - [address] [address] Social History Tobacco Use Types [...] and Oncology Poppy Felton PA-C [address] [phone] (Wo rk) 05/30/2022 Office Visit Surgical Oncology Asa Cameron MD [address] [phone] (Wo rk) documented as of this encounter Visit Diagnoses Not on filedocumented in this encounter Orders Medications Ordered That Might Not Have Count Last Ord ered Date First Ordered Date Been Administered bacitracin injection 50,000 Units 1 04/07/2019 documented in this encounter Care Teams Tool Clerk Relationship Specialty Start Date End Date Filomena Ochoa PA-C PCP - General 03/02/18 [address] [place] [phone] documented as of this encounter
--- OUTSIDE RECORDS SUMMARY | 2021-11-29 00:27 | XMS_ITS | Encounter Summary ---
:1970 Author Organization [facility] Address [address] [place] [address] Care Team Providers Name Role Phone Filomena Ochoa PA-C Primary Care Provider [phone] Reason for Referral (Routine) - New Request Specialty Diagnoses / Procedures Referred By Contact Refer red To Contact Diagnoses Malignant neoplasm of female breast, unspecified estrogen receptor status, unspecified laterality, unspecified site of breast ([facility]) (HCC) Filomena Ochoa, Procedures DXA DUAL XRAY ABSORPTIOMETRY FOR BONE DENSITY [facility] [address] [place] [address] Referral ID Status Reason Start Date Expiration Date Visits V isits Requested Authorized [id number] New Request 03/29/2019 1 1 Reason for Visit Reason Onset Date Comments Orders (Non Pre-visit) 03/29/2019 Encounter Details Date Type Department Care Team Description 03/29/2019 Telephone [facility] Filomena Ochoa (Non Pre-visit) Adult Primary Care - [facility] Wolf Hallie [address] [place] [phone] Social History Tobacco Use Types Packs/Day [...] Encounter - Filomena Ochoa PA-C - 03/31/2019 1215 EST Pt has Oncologist in [place]. Pt is also seeing Dr. Cameron. Pt is feeling a bit better today. Spoke with pt via telephone. elephone Encounter - Filomena North RN - 03/31/2019 1204 EST Spoke to patient, who is cancelling her 1545 appointment with Jia Minor today, stating that her oncologist from [place] will be managing her acute anxiety medication. She is requesting the short refills her her longterm medications, other encounter sent to PCP. elephone Encounter - Elida Negrete - 03/31/2019 1127 EST Patient calling and would like to talk to Nurse Filomena in regards to cancelling appt with TANIYA Cruz telemedicine appt. Patient has talked to her Oncologist and wants to relay message from him. elephone Encounter - Filomena North, RN - 03/29/2019 1657 EST Patient has been taking her trazodone and Wellbutrin. Took 1 mg lorazepam last night and this morning and didn't take her Vyvanse this morning. Is meeting with the onocolgy surgery office at [facility] tomorrow. Is requesting a telemedicine appointment on . Appointment scheduled in the afternoon with Jia to be changed to telemedicine. Let patient know that Filomena Ochoa is recommending to only take the larger dose of lorazepam if absolutely needed and not to drive for at least 8 hours after lorazepam. Patient states she will try to cut back as able. Patient updated on the 3:45 time with Jia on . elephone Encounter - Elida Negrete - 03/29/2019 1633 EST Patient calling and would like to talk to someone about her anxiety since her diagnosis yesterday she has been feeling very anxious and would like to talk to someone about taking her Lorazepam again and what dose she should be taking. elephone Encounter - Filomena Ochoa PA-C - 03/29/2019 1401 EST Ordered dexa scan elephone Encounter - Elida Negrete - 03/29/2019 1342 EST Patient said her Oncologist in [place] wants her to get a Bone Density test. Orders pended, please review complete and sign. documented in this encounter Plan of Treatment Upcoming Encounters Date Type Specialty Care Team Description 12/16/2021 Appointment Infusion Therapy 04/15/2022 Office Visit Hematology and Oncology Poppy Felton PA-C 111 [facility], [facility] [address] [place], [place] [phone] (Wo rk) 05/30/2022 Office Visit Surgical Oncology Asa Cameron MD 111 [facility], [facility] [address] [place], [place] [phone] (Wo rk) documented as of this encounter Results DXA DUAL XRAY ABSORPTIOMETRY FOR BONE DENSITY (07/12/2019 8:57 EDT) Pathologist Sig nature DEXA Bone Density DEXA Bone Density, External Anatomical Region Laterality Modality Other Specimen Narrative This result has an attachment that is no t available. documented in this encounter Visit Diagnoses Diagnosis Malignant neoplasm of female breast, uns pecified estrogen receptor status, unspecified laterality, unspecified site of breast ([facility]) ([facility]) - Primary documented in this encounter Care Teams Mining Captain Relationship Specialty Start Date End Date Filomena Ochoa PA-C PCP - General 03/02/18 [address] [place] [phone] documented as of this encounter
--- OUTSIDE RECORDS SUMMARY | 2021-11-29 00:27 | XMS_ITS | Encounter Summary ---
:[address] [facility] Address [address] [place] [address] Care Team Providers Name Role Phone Jia Minor PA-C Primary Care Provider Unavailable Reason for Visit Reason Onset Date Comments Medications Refill 12/21/2017 Encounter Details Date Type Department Care Team Description 12/21/2017 Refill [facility] Adult IvánJamiJiamaulik Magana ie, Medications Refill Primary Care - Hallie GUDINO [address] [place] [phone] Social History Tobacco Use Types Packs/Day Years [...] 0 12/21/2017 09/10/2018 tablet at bedtime. documented in this encounter Miscellaneous Notes Telephone Encounter - Eva Harrison RN - 12/21/2017 1146 EDT Pt advised rx sent elephone Encounter - Eva Harrison RN - 12/21/2017 1103 EDT rx sent to mail order on 08/24 for 90 w/ 3 rfs Will pend rx for Jia Minor who is here this afternoon elephone Encounter - Graciela Saenz - 12/21/2017 1050 EDT Patient out of town, requesting 4 pills of the Trazodone. She will pay out of pocket. Her will bring her script to her in a few days. [facility] [place] documented in this encounter Plan of Treatment Upcoming Encounters Date Type Specialty Care Team Description 12/16/2021 Appointment Infusion Therapy 04/15/2022 Office Visit Hematology and Oncology Poppy Felton PA-C 111 [facility], [facility] 2 [place], [place] [phone] (Larissa felder) 05/30/2022 Office Visit Surgical Oncology Asa Cameron MD 111 [facility], [facility] 2 [place], [place] [phone] (Wo rk) documented as of this encounter Visit Diagnoses Not on filedocumented in this encounter Discontinued Medications Medication Sig Discontinue Reason Start Date End Date traZODone (DESYREL) 100 Take 1 Tab by mouth Reorder 08/24/2017 12/21/2017 mg tablet at bedtime. documented as of this encounter Care Teams Finish Opener Relationship Specialty Start Date End Date Jia Minor PA-C PCP - General 12/07/1703/01/18 documented as of this encounter
--- OUTSIDE RECORDS SUMMARY | 2021-11-29 00:27 | XMS_ITS | Encounter Summary ---
:1970 Author Organization [facility] Address [address] [place] [address] Care Team Providers Name Role Phone Filomena Ochoa PA-C Primary Care Provider Encounter Details Date Type Department Care Team Description 03/30/2019 Orders Only [facility] Radiology Keegan Martin MD - [facility] [address] [place] [phone] (Wo rk) Social History Tobacco Use Types [...] Hematology and Oncology Poppy Felton PA-C [address] [phone] (Wo rk) 05/30/2022 Office Visit Surgical Oncology Asa Cameron MD [address] [phone] (Wo rk) documented as of this encounter Visit Diagnoses Not on filedocumented in this encounter Care Teams Snow Maker Relationship Specialty Start Date End Date Filomena Ochoa PA-C PCP - General 03/02/18 [address] [place] [phone] documented as of this encounter
--- OUTSIDE RECORDS SUMMARY | 2021-11-29 00:27 | XMS_ITS | Encounter Summary ---
:1970 Author Organization [facility] Address [address] [place] [address] Care Team Providers Name Role Phone Filomena Ochoa PA-C Primary Care Provider [phone] Reason for Visit Reason Onset Date Comments Insect Bite 10/13/2018 Encounter Details Date Type Department Care Team Description 10/13/2018 Telephone [facility] Adult Nova Ochoa, Insect Bite Primary Care - Hallie GUDINO [address] [place] [address] [place], [place] [phone] (Wo rk) Social History Tobacco Use [...] Telephone Encounter - Filomena North RN - 10/13/2018 1552 EDT Updated patient about the recommendations from Dr Jacinto below. The patient indicates understanding of these issues and agrees with the plan. No barriers. Patient declined appointment tomorrow, appointment booked for Thursday. elephone Encounter - Kyleigh Jacinto MD - 10/13/2018 1459 EDT Recommend an OV tomorrow. ED for any concerning symptoms. Should continue Benadryl. Telephone Encounter - Filomena North RN - 10/13/2018 1413 EDT Spoke to patient who was stung by a bee in the left wrist last evening about 6 pm. Has no history ofa bee allergy, but hasn't been stung in years. Swelling continues to expand, even this afternoon from hand to mid forearm. Skin is tight, but not painful. Patient has been trying to ice the area, and took 2 benadryl last night, but has been trying to get work done this morning so hasn't taken any. Denies any throat tightening, or heart racing. I feel fine except for my wrist. Recommendation? Telephone Encounter - Elida Negrete - 10/13/2018 1346 EDT Reason for Call: Insect Bite Summary/Symptoms: Patient was stung on left wrist yesterday. Hand and wrist are swollen about 8 inches now. Onset and Duration? 1 day Appointment Offered? No Elida Negrete 10/13/2018 13:47 documented in this encounter Plan of Treatment Upcoming Encounters Date Type Specialty Care Team Description 12/16/2021 Appointment Infusion Therapy 04/15/2022 Office Visit Hematology and Oncology Poppy Felton PA-C [address] [phone] (Wo rk) 05/30/2022 Office Visit Surgical Oncology Asa Cameron MD [address] [phone] (Wo rk) documented as of this encounter Visit Diagnoses Not on filedocumented in this encounter Care Teams Zoo Keeper Relationship Specialty Start Date End Date Filomena Ochoa PA-C PCP - General 03/02/18 2 [place] [phone] documented as of this encounter
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
--- OUTSIDE RECORDS SUMMARY | 2021-11-29 00:27 | XMS_ITS | Encounter Summary ---
:1970 Author Organization [facility] Address [address] [place] [address] Care Team Providers Name Role Phone Filomena Ochoa PA-C Primary Care Provider [phone] Encounter Details Date Type Department Care Team Description 03/28/2019 Documentation Visit [facility] Jia Gary RN Surgical Oncology - Main [place] [address] [place] [address] Social History Tobacco Use Types Packs/Day [...] encounter Progress Notes Jia Gary, LAMAR - 03/28/2019 1615 EST Received the pathology report from Cuco Armas - showing (+) invasive carcinoma: he reports that hewillyll have pathology slides sent over to [facility] for review. I have contacted the patient to review the pathology report- I will discuss with Dr. Cameron regarding next treatment steps and get back to her as soon as possible. She has my phone # to give me a call. documented in this encounter Plan of Treatment Upcoming Encounters Date Type Specialty Care Team Description 12/16/2021 Appointment Infusion Therapy 04/15/2022 Office Visit Hematology and Oncology Poppy Felton PA-C [address] [phone] (Wo rk) 05/30/2022 Office Visit Surgical Oncology Asa Cameron MD 111 [facility] 2 [place], [place] [phone] (Wo rk) documented as of this encounter Visit Diagnoses Not on filedocumented in this encounter Care Teams Card Cutter Helper Relationship Specialty Start Date End Date Filomena Ochoa PA-C PCP - General 03/02/18 2 [place] [phone] documented as of this encounter
--- OUTSIDE RECORDS SUMMARY | 2021-11-29 00:27 | XMS_ITS | Encounter Summary ---
:1970 Author Organization [facility] Address [address] [place] [address] Care Team Providers Name Role Phone Filomena Ochoa PA-C Primary Care Provider [phone] Reason for Visit Reason Comments Other Encounter Details Date Type Department Care Team Description 09/09/2018 Refill [facility] Adult Filomena Angelo PA-C Other Primary Care - [address] [phone] (Wo rk) Social History Tobacco Use Types [...] 1 TABLET DAILY 90 Tab 3 0 09/10/2018 03/28/2019 300 mg XL tabletIndications: Depression, unspecified depression type traZODone (DESYREL) 100 TAKE 1 TABLET AT 90 Tab 3 201803/28/2019 mg tablet BEDTIME documented in this encounter Miscellaneous Notes Telephone Encounter - Cristiane Bautista - 09/14/2018 1022 EDT Letter sent - needs 6 month f/u from her 03.15.18 appt. elephone Encounter - Filomena Mcnair PA - 09/10/2018 1720 EDT eprescribed elephone Encounter - Filomena Yusuf RN - 09/10/2018 1651 EDT Images from the original note were not included. Requested Prescriptions Pending Prescriptions Disp Refills ??? traZODone (DESYREL) 100 mg tablet [Pharmacy Med Name: TRAZODONE TAB 100MG] 90 Tab 3 Sig: TAKE 1 TABLET AT BEDTIME ??? buPROPion (WELLBUTRIN XL) 300 mg XL tablet [Pharmacy Med Name: BUPROP 24 XL TAB 300MG] 90 Tab 3 Sig: TAKE 1 TABLET DAILY Pharmacy: [facility] Last Refill Date: 08/24/17 Last Visit Date: 03/15/18 Next Non-Acute Visit Date Scheduled with Care Team: Please Schedule an Appointment. Visit date not found FILOMENA YUSUF RN 09/10/2018 16:51 [facility] please schedule Instructions Return in about 6 months (around 09/12/2018), or if symptoms worsen or fail to improve, for f/u physical. documented in this encounter Plan of Treatment Upcoming Encounters Date Type Specialty Care Team Description 12/16/2021 Appointment Infusion Therapy 04/15/2022 Office Visit Hematology and Oncology Poppy Felton PA-C [address] [phone] (Wo rk) 05/30/2022 Office Visit Surgical Oncology Asa Cameron MD [address] [phone] (Wo rk) documented as of this encounter Visit Diagnoses Diagnosis Depression, unspecified depression type - Primary documented in this encounter Discontinued Medications Medication Sig Discontinue Reason Start Date End Date traZODone (DESYREL) 100 Take 1 Tab by mouth Duplicate Therapy 12/2109/10/2018 mg tablet at bedtime. buPROPion (WELLBUTRIN XL) TAKE 1 TABLET DAILY Reorder 08/25/19 18 09/09/2018 300 mg XL tabletIndications: Depression, unspecified depression type documented as of this encounter Care Teams Radio Division Captain Relationship Specialty Start Date End Date Filomena Ochoa PA-C PCP - General 03/02/18 2 [place] [phone] documented as of this encounter
--- OUTSIDE RECORDS SUMMARY | 2021-11-29 00:28 | XMS_ITS | Encounter Summary ---
:1970 Author Organization [facility] Address [address] [place] [address] Care Team Providers Name Role Phone Philip Schulz MD Primary Care Provider Reason for Visit Reason Onset Date Comments Medications Refill 10/05/2016 Encounter Details Date Type Department Care Team Description 10/05/2016 Refill [facility] Adult Philip Hopkins MD Medications Refill Primary Care - Wing [address] [place] [phone] [place] [address] [phone] Social History Tobacco Use Types Packs/Day Years [...] 1 Tab by mouth 30 Tab 0 03/15/2018 tabletIndications: 2 times daily as Episodic mood disorder needed for Anxiety (HCC-CMS) (HCC) (PMS). Daily Max: 2 mg documented in this encounter Miscellaneous Notes Telephone Encounter - Mamta Mayorga - 10/06/2016 1715 EDT Phoned in Telephone Encounter - Lucero Ly RN - 10/06/2016 1638 EDT Medication(s) Requested: lorazepam Pharmacy: [facility] Last Refill Date: 08-04-16 Last Visit Date: 08-04-16 Next Visit Date: 10/06/2016 Is patient out of medication? Yes Lucero Ly RN 10/06/2016 16:39 Telephone Encounter - Mamta Mayorga - 10/06/2016 1507 EDT Patient out med documented in this encounter Plan of Treatment Upcoming Encounters Date Type Specialty Care Team Description 12/16/2021 Appointment Infusion Therapy 04/15/2022 Office Visit Hematology and Oncology Poppy Felton PA-C 111 [facility], [facility] 2 [place], [place] [phone] (Wo rk) 05/30/2022 Office Visit Surgical Oncology Asa Cameron MD 111 [facility], [facility], Level [address] [place], [place] [phone] (Wo rk) documented as of this encounter Visit Diagnoses Diagnosis Episodic mood disorder (HCC-CMS) (HCC) - Primary Unspecified episodic mood disorder documented in this encounter Discontinued Medications Medication Sig Discontinue Reason Start Date End Date LORazepam (ATIVAN) 1 mg Take 1 Tab by mouth Reorder 08/04/2016 10/05/2016 tabletIndications: 2 times daily as Episodic mood disorder needed for Anxiety (HCC-CMS) ([facility]) (PMS). Daily Max: 2 mg documented as of this encounter Care Teams Architectural Model Maker Relationship Specialty Start Date End Date Philip Schulz MD PCP - General 05/14/16 12/06/[address] [place] [address] [place] [phone] documented as of this encounter
--- OUTSIDE RECORDS SUMMARY | 2021-11-29 00:28 | XMS_ITS | Encounter Summary ---
:1970 Author Organization [facility] Address [address] [place] [address] Care Team Providers Name Role Phone Evert Perdomo MD Primary Care Provider Reason for Visit Reason Onset Date Comments Requesting Sooner Appointment 03/03/2016 Encounter Details Date Type Department Care Team Description 03/03/2016 Telephone [facility] Jessi Pleitez MD PhD Requesting Sooner Hematology & Oncology 111 [facility] Appointment - [facility], [address], [address] [place], [place] [phone] [place] [address] [phone] (Wo rk) Social History Tobacco Use [...] a physical, mental, or emotional condition, No 01/21/2016 does this person have difficulty doing errands alone such as visiting a doctor's office or shopping? Cognitive Status Response Date of Assessment Because of a physical, mental, or emotional condition, No 01/21/2016 does this person have serious difficulty concentrating, remembering, or making decisions? documented as of this encounter Miscellaneous Notes Telephone Encounter - Lianna Carroll - 03/03/2016 1402 EST Patient will see Dr. Pleitez on 03/12/16 at 1pm. Patient aware and agreed elephone Encounter - Fariha Sood - 03/03/2016 1139 EST Pt requesting to move her / visit sooner. Looking to know what is open before moving the visit, would like to speak directly to rs documented in this encounter Plan of Treatment Upcoming Encounters Date Type Specialty Care Team Description 12/16/2021 Appointment Infusion Therapy 04/15/2022 Office Visit Hematology and Oncology Poppy Felton PA-C 111 [facility], [facility] 2 [place], [place] [phone] (Wo rk) 05/30/2022 Office Visit Surgical Oncology Asa Cameron MD 111 [facility], [facility] 2 [place], [place] [phone] (Wo rk) documented as of this encounter Visit Diagnoses Not on filedocumented in this encounter Care Teams Steam Distribution Supervisor Relationship Specialty Start Date End Date Evert Perdomo MD PCP - General 10/13/08 05/13/[address] [phone] documented as of this encounter
--- OUTSIDE RECORDS SUMMARY | 2021-11-29 00:28 | XMS_ITS | Encounter Summary ---
:1970 Author Organization [facility] Address [address] [place] [address] Care Team Providers Name Role Phone Philip Schulz MD Primary Care Provider Reason for Visit Reason Onset Date Comments Medications Refill 06/19/2016 Encounter Details Date Type Department Care Team Description 06/19/2016 Refill [facility] Adult Evert Perdomo MD Medications Refill Primary Care - [address] [address] [phone] (Wo rk) Social History Tobacco Use Types [...] 1 Tab by mouth 30 Tab 0 08/04/2016 tabletIndications: 2 times daily as Episodic mood disorder needed for Anxiety ([facility]-CMS) (HCC) (PMS). Daily Max: 2 mg documented in this encounter Miscellaneous Notes Telephone Encounter - Mamta Mayorga - 06/19/2016 1016 EDT Phoned in Telephone Encounter - Khadra Vaughn RN - 06/19/2016 0724 EDT Medication: Ativan Last Refill: Last Visit Date: 03/12/16 - w/ Dr. Perdomo elephone Encounter - Khadra Vaughn RN - 06/19/2016 0724 EDT From: Jia Dow To: Evert Perdomo MD Sent: 06/19/2016 0:13 EDT Subject: Medication Renewal Request Original authorizing provider: MD Jia Ellis would like a refill of the following medications: LORazepam (ATIVAN) 1 mg tablet [Evert Perdomo MD] Preferred pharmacy: [id number] Comment: documented in this encounter Plan of Treatment Upcoming Encounters Date Type Specialty Care Team Description 12/16/2021 Appointment Infusion Therapy 04/15/2022 Office Visit Hematology and Oncology Poppy Felton PA-C 111 [facility], [facility] 2 [place], [place] [phone] (Wo rk) 05/30/2022 Office Visit Surgical Oncology Asa Cameron MD 111 [facility], [facility] 2 [place], [place] [phone] (Wo rk) documented as of this encounter Visit Diagnoses Diagnosis Episodic mood disorder (HCC-CMS) (HCC) - Primary Unspecified episodic mood disorder documented in this encounter Discontinued Medications Medication Sig Discontinue Reason Start Date End Date LORazepam (ATIVAN) 1 mg Take 1 Tab by mouth Reorder 04/21/2016 06/19/2016 tabletIndications: 2 times daily as Episodic mood disorder needed for Anxiety (HCC-CMS) (HCC) (PMS). Daily Max: 2 mg documented as of this encounter Care Teams In Processing Instructor Relationship Specialty Start Date End Date Philip Schulz MD PCP - General 05/14/16 12/06/[address] [place] [address] [place] [phone] documented as of this encounter
--- OUTSIDE RECORDS SUMMARY | 2021-11-29 00:28 | XMS_ITS | Encounter Summary ---
:1970 Author Organization [facility] Address [address] [place] [address] Care Team Providers Name Role Phone Evert Perdomo MD Primary Care Provider Reason for Visit Reason Comments Follow-up Encounter Details Date Type Department Care Team Description 01/21/2016 Office Visit [facility] Asa Cameron MD Personal history of Surgical Oncology - [address] malign ant neoplasm of [facility] [address] breast (Primary Dx) [address] [place] [address] Pav[address], [place] [phone] (Wo rk) Social History Tobacco Use Types [...] encounter Progress Notes Asa Cameron MD - 01/21/2016 1233 EST [facility] BREAST CANCER PROGRAM PROGRESS / FOLLOWUP NOTE - 01/21/2016 SUBJECTIVE: Patient seen in followup. She is a 45-year-old woman who had a right breast cancer diagnosed in July 2011. She underwent surgery with a total mastectomy with sentinel node biopsy and a prophylactic left total mastectomy. She had bilateral implant reconstructions. Tumor stage was T1c N0. She was treated with tamoxifen, which was recently converted to toremifene. The patient is doing relatively well, has no new complaints. OBJECTIVE: On exam today, she is in no acute distress. There is no scleral icterus. Palpation of theneck reveals no palpable cervical or supraclavicular lymph nodes. There are no nodules in the thyroid gland. There are no carotid bruits or JVD. Lungs are clear to auscultation. Heart has a regular rate and rhythm without S3, S4, or murmurs. Breast exam reveals bilateral skin-sparing mastectomies withimplant reconstructions. Palpation of the right side reveals the implant in good position. There areno palpable abnormalities suspicious for recurrence. There are no palpable lymph nodes in the right axilla. The left side has no palpable abnormalities suspicious for recurrence. There are no palpable a bnormalities in the axilla. The implant was in good position. There are no abdominal masses, no abdominal tenderness, no hepato or splenomegaly is noted. She has good range of motion of the upper extremities without edema. DIAGNOSTIC DATA: Ultrasound of the right mastectomy site shows the implant in good position. There is no evidence of recurrent disease in the mastectomy site. There are no abnormal lymph nodes in the internal mammary or axillary region. On the left side, the implant is in good position. There are no abnormal findings suspicious for recurrent disease in the mastectomy site. There are no abnormal lymphnodes in the internal mammary or axillary region. ASSESSMENT: The patient is 4-1/2 years out without evidence of recurrent disease. PLAN: To have her return for a followup again in 1 year. Asa Cameron MD 09 29 AM - Asa Cameron MD cn Dictation ID: [id number] cc: Jessi Pleitez MD, [facility] - Hematology Oncology [address] [place] [address] Evert Perdomo MD, [facility] [place] [address] Asa Brennan MD - 01/21/2016 0830 EST This office note has been dictated. documented in this encounter Plan of Treatment Upcoming Encounters Date Type Specialty Care Team Description 12/16/2021 Appointment Infusion Therapy 04/15/2022 Office Visit Hematology and Oncology Poppy Felton, PAChuyC [address] [place] [phone] (Wo rk) 05/30/2022 Office Visit Surgical Oncology Asa Cameron MD [address] [place] [phone] (Wo rk) documented as of this encounter Visit Diagnoses Diagnosis Personal history of malignant neoplasm o f breast - Primary documented in this encounter Historical Medications This list may reflect changes made after this encounter. Medication Sig Dispensed Refills Start Date End Date Toremifene (FARESTON) 60 Take 60 mg by mouth 0 01/28/2016 mg tablet daily. added in this encounter Care Teams Sintering Press Operator Relationship Specialty Start Date End Date Evert Perdomo MD PCP - General 10/13/08 05/13/[address] [address] documented as of this encounter
--- OUTSIDE RECORDS SUMMARY | 2021-11-29 00:28 | XMS_ITS | Encounter Summary ---
:1970 Author Organization [facility] Address [address] [place] [address] Care Team Providers Name Role Phone Philip Schulz MD Primary Care Provider Reason for Visit Reason Onset Date Comments Palpitations 06/09/2016 Encounter Details Date Type Department Care Team Description 06/09/[address] [facility] Adult Philip Hopkins MD Palpitations Primary Care - [address] [phone] [place] [address] [phone] Social History Tobacco Use Types Packs/Day Years [...] this encounter Miscellaneous Notes Telephone Encounter - Lucero Ly RN - 06/09/2016 1654 EDT Has had heart palpitations for many years. When was 26 years old. Was diagnosed with Mitrial valve prolapse Under some stress. Having some anxiety attacks. Wears fit bit. Resting heart rate is around 60 . At night when tries to go to sleep HR in 90. Does exercised frequently. Does run. Heart rate drops quickly after exercise. Patient states the palpitations are fleeting. Not associated with Shortness of breath dizziness, or pain , then patient should be seen urgently inthe ER. .appointment scheduled to evaluate elevated HR and anxiety. .The patient indicates understanding of these issues and agrees with the plan. No barriers. elephone Encounter - Mamta Mayorga - 06/09/2016 1652 EDT Reason for Call: Palpitations Summary/Symptoms: Patient calling for appointment for medication management, but also for palpitations . Onset and Duration? Has been had for awhile but worse now Appointment Offered? No Mamta Mayorga 06/09/2016 16:52 documented in this encounter Plan of Treatment Upcoming Encounters Date Type Specialty Care Team Description 12/16/2021 Appointment Infusion Therapy 04/15/2022 Office Visit Hematology and Oncology Poppy Felton PA-C 111 [facility], [facility], Level [address] [place], [place] [phone] (Wo rk) 05/30/2022 Office Visit Surgical Oncology Asa Cameron MD [address] [place] [facility], [facility], [address] [place], [place] [phone] (Wo rk) documented as of this encounter Visit Diagnoses Not on filedocumented in this encounter Care Teams Order Analyst Relationship Specialty Start Date End Date Philip Schulz MD PCP - General 05/14/16 12/06/[address] [place] [address] [place] [address] documented as of this encounter
--- OUTSIDE RECORDS SUMMARY | 2021-11-29 00:28 | XMS_ITS | Encounter Summary ---
:1970 Author Organization [facility] Address [address] [place] [address] Care Team Providers Name Role Phone Philip Schulz MD Primary Care Provider Reason for Visit Reason Comments Other Encounter Details Date Type Department Care Team Description 03/20/2017 Refill [facility] Adult Philip Hopkins MD Other Primary Care - [address] [address] [place] [address] [phone] Social History Tobacco Use Types Packs/Day Years [...] Start Date End Date traZODone (DESYREL) 100 TAKE 1 TABLET AT 90 Tab 1 201707/30/2017 mg tablet BEDTIME documented in this encounter Miscellaneous Notes Telephone Encounter - Melanie Oconnor RN - 03/20/2017 1341 EST Last OV 08/04/16. No future OV's scheduled. Last trazodone script was 09/24/16, #90, 0 RF. E-prescribed. documented in this encounter Plan of Treatment Upcoming Encounters Date Type Specialty Care Team Description 12/16/2021 Appointment Infusion Therapy 04/15/2022 Office Visit Hematology and Oncology Poppy Fleton, PAChuyC [address] [phone] (Wo rk) 05/30/2022 Office Visit Surgical Oncology Asa Cameron MD 111 [facility] 2 [place], [place] [phone] (Wo rk) documented as of this encounter Visit Diagnoses Not on filedocumented in this encounter Discontinued Medications Medication Sig Discontinue Reason Start Date End Date traZODone (DESYREL) 100 TAKE 1 TABLET AT Reorder 09/24/2016 03/20/2017 mg tablet BEDTIME documented as of this encounter Care Teams Stepdown Nurse Relationship Specialty Start Date End Date Philip Schulz MD PCP - General 05/14/16 12/06/[address] [place] [address] DR [place], FOUZIA [phone] documented as of this encounter
--- OUTSIDE RECORDS SUMMARY | 2021-11-29 00:28 | XMS_ITS | Encounter Summary ---
:1970 Author Organization [facility] Address [address] [place] [address] Care Team Providers Name Role Phone Philip Schulz MD Primary Care Provider Encounter Details Date Type Department Care Team Description 01/12/2017 Results Only [facility] Asa Cameron MD Imaging Surgical Oncology - [address] [place] [address], [address], [address] [place], [place] [phone] [place] [phone] (Wo rk) Social History Tobacco Use Types [...] Poppy Felton PA-C 111 [facility], [facility] 2 [place], [place] [phone] (Wo rk) 05/30/2022 Office Visit Surgical Oncology Asa Cameron MD 111 [facility], [facility] 2 [place], [place] [phone] (Wo rk) documented as of this encounter Visit Diagnoses Not on filedocumented in this encounter Care Teams Order Picker Relationship Specialty Start Date End Date Philip Schulz MD PCP - General 05/14/16 12/06/[address] [place] [address] [place] [address] documented as of this encounter
--- OUTSIDE RECORDS SUMMARY | 2021-11-29 00:28 | XMS_ITS | Encounter Summary ---
:1970 Author Organization Health system Address [address] [place] [address] Care Team Providers Name Role Phone Evert Perdomo MD Primary Care Provider Reason for Visit Reason Comments Medication Management please review, pt requesting flu shot today Encounter Details Date Type Department Care Team Description 02/11/2016 Office Visit [facility] Philip Schulz Pr imary insomnia (Primary Dx); Adult Primary Care - Episodic mood disorder ([facility]); [place] [address] Needs flu shot [address] [place] [phone] (Wo rk) Social History Tobacco Use Types [...] Sign Reading Time Taken Comments Blood Pressure 96/76 02/11/2016 1423 EST Pulse 60 02/11/2016 1423 EST Temperature 36.8 ??C (98.3 ??F) 02/11/2016 1423 EST Respiratory Rate 12 02/11/2016 1423 EST Oxygen Saturation - - Inhaled Oxygen Concentration - - Weight 62.4 kg (137 lb 9.6 oz) 02/11/2016 1423 EST Height - - Body Mass Index 21.88 12/19/2015 1118 EDT documented in this encounter Functional Status [...] 1 Tab by mouth 30 Tab 0 04/21/2016 tabletIndications: 2 times daily as Episodic mood disorder needed for Anxiety (HCC-CMS) (HCC) (PMS). Daily Max: 2 mg zolpidem (AMBIEN) 10 mg Take 1 Tab by mouth 30 Tab 1 03/26/2016 tablet at bedtime as needed for Sleep. Daily Max: 10 mg documented in this encounter Progress Notes Polly Leal LPN - 02/11/2016 1415 EST Patient Education Topic: Influenza Vaccine Method: Handout and Verbal Taught to: Patient Barriers: None Outcomes: independent and verbalized understanding Signature: Polly Leal LPN I was supervised by Philip Schulz who was present and immediately available in the office suite. Polly Leal LPN 02/11/2016 15:22 Philpi Gonzalez MD - 02/11/2016 1415 EST Internal Medicine Clinic Note Date : 02/11/2016 Jia Dow is a 45 y.o. year old female presenting to clinic to address the followin. Insomnia The patient suffers from insomnia that was previously well controlled with evening trazodone. However, she is now taking Toremifine so she had to discontinue trazodone given concerns of possible cardiac effects. She has been taking Ambien 5 mg once a day with moderate improvement, but would like to goup on the dose or find an alternative treatment option. Of note, the patient is also taking Ativan for occasional mood/anxiety exacerbations. SUBJECTIVE: The patient states she otherwise feels well and denies any distress. No Known Allergies Past Medical History Diagnosis Date ??? Breast cancer 07/2011 Past Surgical History Procedure Laterality Date ??? Hand tendon surgery ??? Mastectomy ??? Breast reconstruction Family History Problem Relation Age of Onset ??? Cancer Brother thyroid ??? Cancer Maternal Grandmother breast, postmenopausal Social History Social History ??? Marital status: Spouse name: N/A ??? Number of children: N/A ??? Years of education: N/A Social History Main Topics ??? Smoking status: Never Smoker ??? Smokeless tobacco: Never Used ??? Alcohol use 1.2 oz/week 2 Standard drinks or equivalent per week ??? Drug use: None ??? Sexual activity: Not Asked Other Topics Concern ??? None Social History Narrative Review of Systems - History obtained from the patient General: Positive for fatigue, poor sleep Psychological: Positive for depression and anxiety Musculoskeletal : negative for - gait disturbance, joint pain, muscle pain or muscular weakness Dermatological: negative for - skin lesion changes Hematological and Lymphatic : Positive for breast cancer Neurological : negative for - dizziness Physical Exam: Vitals: 02/11/16 1423 BP: 96/76 BP Cuff Location: Left arm Patient Position: Sitting BP Cuff Sizes: Adult, regular Pulse: 60 Resp: 12 Temp: 36.8 ??C (98.3 ??F) TempSrc: Tympanic Weight: 62.4 kg (137 lb 9.6 oz) General Appearance: alert and oriented, appears tired but is pleasant and conversant Head: Normocephalic, without obvious abnormality, atraumatic Neurologic: Alert and oriented X 3, normal strength and tone. Extremities: extremities warm, atraumatic, no cyanosis or edema Skin: Skin color, temperature, turgor normal. No rashes or lesions Laboratory Data: Reviewed ASSESSMENT AND PLAN: 1. Primary insomnia Increased Ambien to 10 mg daily at bedtime. Interestingly, the patient states that Dramamine significantly improves her ability to sleep. I encouraged the patient to try using Benadryl, which she is agreeable to. She will also discuss with her oncologist whether resuming trazodone would be appropriate(apparently her pharmacist seemed to suggest that the risk of long QT or other arrhythmia was not significant) 2. Episodic mood disorder - LORazepam (ATIVAN) 1 mg tablet; Take 1 Tab by mouth 2 times daily as needed for Anxiety (PMS). Daily Max: 2 mg Dispense: 30 Tab; Refill: 0 3. Needs flu shot - [id number] - Influenza Vaccine =>3YO Quad Preservative Free IM I spent a total of 35 minutes in face to face time with this patient and 30 minutes of that time wasspent in counseling and coordination of care as described in the progress note. Philip Schulz MD documented in this encounter Plan of Treatment Upcoming Encounters Date Type Specialty Care Team Description 12/16/2021 Appointment Infusion Therapy 04/15/2022 Office Visit Hematology and Oncology Poppy Felton, PACl 111 [facility], [facility] 2 [place], [place] [phone] (Wo rk) 05/30/2022 Office Visit Surgical Oncology Asa Cameron MD 111 [facility], [facility] 2 [place], [place] [phone] (Wo rk) documented as of this encounter Visit Diagnoses Diagnosis Primary insomnia - Primary Persistent disorder of initiating or rossana ntaining sleep Episodic mood disorder (HCC-CMS) (HCC) Unspecified episodic mood disorder Needs flu shot Need for prophylactic vaccination and in oculation against influenza documented in this encounter Discontinued Medications Medication Sig Discontinue Reason Start Date End Date zolpidem (AMBIEN) 5 mg Take 1 Tab by mouth 12/11/2015 02/11/2016 tablet at bedtime as needed for Sleep. Daily Max: 5 mg LORazepam (ATIVAN) 1 mg Take 1 Tab by mouth Reorder 01/22/2016 02/11/2016 tablet 2 times daily as needed for Anxiety (PMS). Daily Max: 2 mg documented as of this encounter Orders Immunization/Injection Count Last Ordered Date First O rdered Date INFLUENZA VACCINE =>3YO QUAD PRESERVATIVE 1 2015 FREE IM documented in this encounter Care Teams Wheel Cutter Relationship Specialty Start Date End Date Evert Perdomo MD PCP - General 10/13/08 05/13/[address] [place] [address] documented as of this encounter
--- OUTSIDE RECORDS SUMMARY | 2021-11-29 00:28 | XMS_ITS | Encounter Summary ---
:1970 Author Organization [facility] Address [address] [place] [address] Care Team Providers Name Role Phone Evert Perdomo MD Primary Care Provider Philip Schulz MD Primary Care Provider Reason for Visit Reason Onset Date Comments Appointment Related 03/18/2016 needs to cancel ashley rrow's appt and try to reschedule for Thursday Encounter Details Date Type Department Care Team Description 03/18/2016 Telephone [facility] Jessi Pleitez MD PhD Appointment Related Hematology & Oncology 111 [facility] (needs to cancel - [facility] tomorrow's appt and 111 [facility], Level 2 try to reschedule for [place], [place] [phone] [place] [address] Thursday) [phone] (Wo rk) Social History Tobacco Use [...] Notes Telephone Encounter - Lianna Carroll - 03/18/2016 1518 EST Talked to Jia and scheduled her to see Dr. Pleitez on 03/26 at 900am elephone Encounter - Laine Burgos - 03/18/2016 1403 EST Patient needs to cancel her Appt for tomorrow and has an appt at 2 for her daughter on Thursday and wants to find out if there is a chance of coming in sometime on thursday documented in this encounter Plan of Treatment Upcoming Encounters Date Type Specialty Care Team Description 12/16/2021 Appointment Infusion Therapy 04/15/2022 Office Visit Hematology and Oncology Poppy Felton PA-C [address] [place] [address] [facility], [facility] 2 [place], [place] [phone] (Larissa felder) 05/30/2022 Office Visit Surgical Oncology Asa Cameron MD [address] [place] [address] [facility], [facility] 2 [place], [place] [phone] (Wo rk) documented as of this encounter Visit Diagnoses Not on filedocumented in this encounter Care Teams Supervisor Phosphatic Fertilizer Relationship Specialty Start Date End Date Evert Perdomo MD PCP - General 10/13/08 05/13/[address] [place] [address] Philip Schulz MD PCP - General 05/14/16 12/06/[address] [place] [address] [place] [address] documented as of this encounter
--- OUTSIDE RECORDS SUMMARY | 2021-11-29 00:28 | XMS_ITS | Encounter Summary ---
:1970 Author Organization [facility] Address [address] [place] [address] Care Team Providers Name Role Phone Evert Perdomo MD Primary Care Provider Encounter Details Date Type Department Care Team Description 12/11/2015 Phlebotomy Only [facility] Principal Solutions ArchitectLivia history of - [facility] [place] [facility] malignant neoplasm 111 [facility] of breast (Primary [place], [place] Dx) [phone] Social History Tobacco Use Types Packs/Day Years [...] a physical, mental, or emotional condition, No 10/31/2015 does this person have difficulty doing errands alone such as visiting a doctor's office or shopping? Cognitive Status Response Date of Assessment Because of a physical, mental, or emotional condition, No 10/31/2015 does this person have serious difficulty concentrating, remembering, or making decisions? documented as of this encounter Plan of Treatment Upcoming Encounters Date Type Specialty Care Team Description 12/16/2021 Appointment Infusion Therapy 04/15/2022 Office Visit Hematology and Oncology Poppy Felton PA-C [address] [phone] (Wo rk) 05/30/2022 Office Visit Surgical Oncology Asa Cameron MD [address] [phone] (Wo rk) documented as of this encounter Procedures Procedure Name Priority Date/Time Associated Diagnosis Comme nts PTT Routine 12/11/2015 13:43 Personal history of Resu lts for this EDT malignant neoplasm procedure are in of breast the results section. PROTIME Routine 12/11/2015 13:43 Personal history of Resu lts for this EDT malignant neoplasm procedure are in of breast the results section. COMPLETE BLOOD Routine 12/11/2015 13:43 Personal history of Re sults for this COUNT EDT malignant neoplasm procedure are in of breast the results section. BASIC METABOLIC Routine 12/11/2015 13:43 Personal history of R esults for this PANEL (BMP) EDT malignant neoplasm procedure are in of breast the results section. documented in this encounter Results PTT (12/11/2015 13:43 EDT) Pathologist Sig nature PTT 28 26 - 37 secs [facility] Specimen Blood specimen (specimen) - Blood Performing Organization Address City/State/ZIP Code Phon e Number [facility] [address] [place] [address] SERVICES PROTIME (12/11/2015 13:43 EDT) Pro Time 11.9Comment: New 10.3 - 13.1 [facility] prothrombin time range secs LABORATORY SERVICE S effective 11/20/15 I.N.R. 1.0 0.9 - 1.1 [facility] Comment: Ratio LABORATORY SERVICES Moderate Intensity Coumadin INR = 2.0-3.0 Adjustments in anticoagulant therapy dose should be based upon the INR and NOT the Pro Time. Specimen Blood specimen (specimen) - Blood Performing Organization Address City/[facility]/ZIP Code Phon e Number [facility] [address] [place] [address] SERVICES BASIC METABOLIC PANEL (12/11/2015 13:43 EDT) Sodium 142 136 - 145 [facility] mEq/L [facility] Potassium 3.8 3.5 - 5.0 [facility] mEq/L [facility] Chloride 105 96 - 110 [facility] mEq/L [facility] CO2 26Comment: Note new 22 - 32 mEq/L [facility] reference range [facility] 12/11/15 SERVICES BUN 14 10 - 26 mg/dl [facility] SERVICES Creatinine 0.95 0.52 - 1.04 [facility] mg/dl [facility] GFR, Calculated 74 >60 [facility] Comment: ml/min/1.73m2 [facility] eGFR calculated using CKD-EPI equation for SERVICES non Americans. Multiply eGFR by 1.16 for Americans. Calcium 9.8 8.5 - 10.5 [facility] mg/dl [facility] Calculated Calcium 9.9 8.5 - 10.5 [facility] Comment: mg/dl [facility] Note new formula for calculation SERVICES in use 11/28/2015 Glucose, Serum 76 70 - 100 [facility] mg/dl [facility] SERVICES Fasting? No [facility] SERVICES Specimen Blood specimen (specimen) - Blood Performing Organization Address City/[facility]/ZIP Code Phon e Number [facility] [address] [place] [address] SERVICES (ABNORMAL) HEMAGRAM (12/11/2015 13:43 EDT) Pathologist Sig nature WBC 6.46 4.0 - 12.4 K/cmm [facility] SERVICES RBC 4.36 3.86 - 5.04 M/cmm [facility] SERVICES Hemoglobin 13.2 11.6 - 15.2 gm/dl [facility] HCT 39.9 34.9 - 44.4 % [facility] SERVICES MCV 92 81 - 98 fl [facility] MCH 30.3 26.7 - 33.3 pg [facility] MCHC 33.1 32.1 - 35.9 gm/dl [facility] SERVICES RDW-CV 12.8 11.7 - 14.6 % [facility] SERVICES RDW-SD 42.8 37.6 - 50.3 fl [facility] SERVICES PLT 207 141 - 377 K/cmm [facility] SERVICES MPV 9.2 (L) 9.5 - 12.7 fl [facility] SERVICES Specimen Blood specimen (specimen) - Blood Performing Organization Address City/State/ZIP Code Phon e Number [facility] [address] [place] [address] SERVICES documented in this encounter Visit Diagnoses Diagnosis Personal history of malignant neoplasm o f breast - Primary documented in this encounter Orders Lab Orders Without Results Count Last Ordered Date Fir st Ordered Date BASIC METABOLIC PANEL 1 12/11/2015 HEMAGRAM 1 12/11/2015 PROTIME 1 12/11/2015 PTT 1 12/11/2015 documented in this encounter Care Teams Tongue And Groove Machine Feeder Relationship Specialty Start Date End Date Evert Perdomo MD PCP - General 10/13/08 05/13/[address] [phone] documented as of this encounter
--- OUTSIDE RECORDS SUMMARY | 2021-11-29 00:28 | XMS_ITS | Encounter Summary ---
:1970 Author Organization [facility] Address [address] [place] [address] Care Team Providers Name Role Phone Evert Perdomo MD Primary Care Provider Reason for Visit Reason Onset Date Comments Medications Refill 01/21/2016 Encounter Details Date Type Department Care Team Description 01/21/2016 Refill [facility] Adult Evert Perdomo MD Medications Refill Primary Care - [address] [phone] (Wo rk) Social History Tobacco Use Types [...] 1 Tab by mouth 30 Tab 0 02/11/2016 tablet 2 times daily as needed for Anxiety (PMS). Daily Max: 2 mg documented in this encounter Miscellaneous Notes Telephone Encounter - Elyssa Pal - 01/22/2016 0906 EST Phoned into [facility] [email or web address] [place]. elephone Encounter - Khadra Vaughn RN - 01/22/2016 0803 EST Last office visit 12/11/15 Refill for: ativan Last prescribed: 11/14/15 elephone Encounter - Khadra Vaughn RN - 01/22/2016 0803 EST From: Jia Dow To: Evert Perdomo MD Sent: 01/21/2016 23:31 EST Subject: Medication Renewal Request Original authorizing provider: MD Jia Ellis would like a refill of the following medications: LORazepam (ATIVAN) 1 mg tablet [Evert Perdomo MD] Preferred pharmacy: [facility] [address] Comment: *Please renew lorazepam at [facility] documented in this encounter Plan of Treatment Upcoming Encounters Date Type Specialty Care Team Description 12/16/2021 Appointment Infusion Therapy 04/15/2022 Office Visit Hematology and Oncology Poppy Felton, PACl 111 [facility] 2 [place], [place] [phone] (Wo rk) 05/30/2022 Office Visit Surgical Oncology Asa Cameron MD 111 [facility], [address] [phone] (Wo rk) documented as of this encounter Visit Diagnoses Not on filedocumented in this encounter Discontinued Medications Medication Sig Discontinue Reason Start Date End Date LORazepam (ATIVAN) 1 mg Take 1 Tab by mouth Reorder 11/14/2015 01/21/2016 tablet 2 times daily as needed for Anxiety (PMS). Daily Max: 2 mg documented as of this encounter Care Teams Head And Neck Surgeon Relationship Specialty Start Date End Date Evert Perdomo MD PCP - General 10/13/08 05/13/[address] [address] documented as of this encounter
--- OUTSIDE RECORDS SUMMARY | 2021-11-29 00:28 | XMS_ITS | Encounter Summary ---
:1970 Author Organization [facility] Address [address] [place] [address] Care Team Providers Name Role Phone Philip Schulz MD Primary Care Provider Encounter Details Date Type Department Care Team Description 08/24/2017 Results Only [facility] Asa Cameron MD Imaging Surgical Oncology - [address] [place] [address], [address], [address] [place], [place] [address] [place] [phone] (Wo rk) Social History Tobacco Use Types [...] Oncology Poppy Felton PA-C 111 [facility] 2 [place], [place] [phone] (Wo rk) 05/30/2022 Office Visit Surgical Oncology Asa Cameron MD 111 [facility] 2 [place], [place] [phone] (Wo rk) documented as of this encounter Procedures Procedure Name Priority Date/Time Associated Diagnosis Comme [facility] 08/24/2017 16:50 Results for this BREAST-BREAST CARE EDT procedure are in CENTER ONLY the results section. documented in this encounter Results [facility] BREAST-BREAST CARE CENTER ONLY (08/24/2017 16:50 EDT) Anatomical Region Laterality Modality Other Specimen Narrative [facility] BREAST IMAGING MAIN C AMPUS - 08/24/2017 16:50 EDT See Notes Tab. Procedure Note CROP SCOUT, IMAGING - 08/24/2017 See Notes Tab. Performing Organization Address City/State/ZIP Code Phon e Number [facility] BREAST IMAGING [facility] documented in this encounter Visit Diagnoses Not on filedocumented in this encounter Care Teams Link Machine Operator Relationship Specialty Start Date End Date Philip Schulz MD PCP - General 05/14/16 12/06/[address] [place], [place] [phone] documented as of this encounter
--- OUTSIDE RECORDS SUMMARY | 2021-11-29 00:28 | XMS_ITS | Encounter Summary ---
:1970 Author Organization [facility] Address [address] [place] [address] Care Team Providers Name Role Phone Philip Schulz MD Primary Care Provider Reason for Visit Reason Onset Date Comments Appointment Related 02/09/201702/12 Encounter Details Date Type Department Care Team Description 02/09/2017 Telephone [facility] Asa Cameron MD Appointment Related Surgical Oncology - [address] [place] [address] (02/12) [facility], [address], [address] [place], [place] [address] [place] [address] [phone] (Wo rk) Social History Tobacco Use [...] this encounter Miscellaneous Notes Telephone Encounter - Alexus Perez - 02/09/2017 1240 EST LMOM letting the patient know that Dr. Cameron is booking out into the New Year. Let the patient knowthat I would be happy to help her schedule an appointment. Left my name and number. elephone Encounter - Laine Burgos - 02/09/2017 1128 EST Reason for Call: Appointment Related (02/12) Summary/Symptoms: Patient asking if there is any chance of being seen on 02/[address] Cameron and if not, she still needs to schedule an appt Laine Burgos 02/09/2017 11:29 documented in this encounter Plan of Treatment Upcoming Encounters Date Type Specialty Care Team Description 12/16/2021 Appointment Infusion Therapy 04/15/2022 Office Visit Hematology and Oncology Poppy Felton, PACl 111 [facility], [facility] 2 [place], [place] [phone] (Wo bradford) 05/30/2022 Office Visit Surgical Oncology Asa Cameron MD 111 [facility] 2 [place], [place] [phone] (Wo bradford) documented as of this encounter Visit Diagnoses Not on filedocumented in this encounter Care Teams Bread Pan Greaser Relationship Specialty Start Date End Date Philip Schulz MD PCP - General 05/14/16 12/06/[address] [place] [address] [place] [phone] documented as of this encounter
--- OUTSIDE RECORDS SUMMARY | 2021-11-29 00:28 | XMS_ITS | Encounter Summary ---
:1970 Author Organization [facility] Address [address] [place] [address] Care Team Providers Name Role Phone Philip Schulz MD Primary Care Provider Reason for Visit Reason Onset Date Comments Toe Injury 09/20/2016 Encounter Details Date Type Department Care Team Description 09/20/2016 Telephone [facility] Primary Philip Cristina MD Toe Injury Care [facility] - [address] [place] [address] [place] [address] [place] [address] [place], [place] [address] [phone] Social History Tobacco Use Types Packs/Day Years [...] this encounter Miscellaneous Notes Telephone Encounter - Nika Landers RN - 09/20/2016 1401 EDT Outgoing call: Currently in [facility] Son stpped on foot/toe: Right big toe Swollen and immediately bruised 15-20mins then resolved Painful now to walk onTx: Ice, but still painful Not taking advil/tylenol Advised patient to stay off foot as much as possible and elevate foot Use OTC medication for pain control (advil or tylenol) Proceed to UC in [facility] if symptoms worsen Would like an appt to be seen when she returns to [place] Apt made with Gabriela MONAHAN in [place]: 09/22 at 1615 elephone Encounter - Katelyn Mejia - 09/20/2016 1233 EDT Reason for Call: Toe Injury Summary/Symptoms: Patient hurt her big toe on her right foot, not sure what (if anything) she shoulddo. Onset and Duration? Yesterday, hurts a lot more today Appointment Offered? No Katelyn Mejia 09/20/2016 12:33 documented in this encounter Plan of Treatment Upcoming Encounters Date Type Specialty Care Team Description 12/16/2021 Appointment Infusion Therapy 04/15/2022 Office Visit Hematology and Oncology Poppy Felton PA-C 111 [facility], [facility], Level [address] [place], [place] [phone] (Wo rk) 05/30/2022 Office Visit Surgical Oncology Asa Cameron MD 111 [facility], [facility], Level [address] [place], [place] [phone] (Wo rk) documented as of this encounter Visit Diagnoses Not on filedocumented in this encounter Care Teams Core Mounter Relationship Specialty Start Date End Date Philip Schulz MD PCP - General 05/14/16 12/06/[address] [place] [address] [address] [place], [place] [phone] documented as of this encounter
--- OUTSIDE RECORDS SUMMARY | 2021-11-29 00:28 | XMS_ITS | Encounter Summary ---
:1970 Author Organization [facility] Address [address] [place] [address] Care Team Providers Name Role Phone Evert Perdomo MD Primary Care Provider Encounter Details Date Type Department Care Team Description 12/11/2015 Hospital Encounter [facility] - Unknown, Provider, Marzena Child MD [address] [facility] [address] [place] [address] [address] [place] [address] Social History Tobacco Use Types Packs/Day Years [...] as of this encounter Discharge Diagnoses Diagnosis Z85.3 Personal history of malignant neop lasm of breast-Z85.3[ICD-10-CM] documented in this encounter Medications at Time of Discharge Medication Sig Dispensed Refills Start Date End Date buPROPion (WELLBUTRIN XL) Take 1 Tab by 90 Tab 1 016 12/24/2015 150 mg XL mouth daily. tabletIndications: Depression, unspecified depression type, Malignant neoplasm of female breast, unspecified laterality, unspecified site of breast doxycycline (ADOXA) 100 mg Take 1 Tab by 14 Tab 0 201512/27/2015 tablet mouth 2 times daily for 7 days. ibuprofen (MOTRIN) 600 mg Take 1 Tab by 0 015 12/20/2015 tablet mouth every 6 hours as needed for Pain lisdexamfetamine (VYVANSE) Take 1 Cap by 90 Cap 0 201501/21/2016 40 mg capsule mouth every morning for 90 days. Earliest Fill Date: 10/27/15 Daily Max: 40 mg LORazepam (ATIVAN) 1 mg Take 1 Tab by 30 Tab 0 6 01/21/2016 tablet mouth 2 times daily as needed for Anxiety (PMS). Daily Max: 2 mg Toremifene 60 mg Take 60 mg by 30 Tab 1 11/15/201512/19 tabletIndications: mouth daily. Malignant neoplasm of female breast, unspecified laterality, unspecified site of breast traMADol (ULTRAM) 50 mg Take 1 Tab by 30 Tab 0 6 03/26/2016 tablet mouth every 6 hours as needed for Pain. Daily Max: 200 mg traZODone (DESYREL) 50 mg Take 50 mg by 0 03/12/2016 tablet mouth at bedtime. Reported on 01/21/2016 zolpidem (AMBIEN) 5 mg Take 1 Tab by 30 Tab 2 12/11/2015 02/11/2016 tablet mouth at bedtime as needed for Sleep. Daily Max: 5 mg documented as of this encounter Discharge Disposition Disposition Code Departure Means Destination Auto Discharge Home documented in this encounter Plan of Treatment Upcoming Encounters Date Type Specialty Care Team Description 12/16/2021 Appointment Infusion Therapy 04/15/2022 Office Visit Hematology and Oncology Poppy Felton PA-C [address] [phone] (Wo rk) 05/30/2022 Office Visit Surgical Oncology Asa Cameron MD [address] [phone] (Wo rk) documented as of this encounter Visit Diagnoses Not on filedocumented in this encounter Care Teams Duralumin Mechanic Relationship Specialty Start Date End Date Evert Perdomo MD PCP - General 10/13/08 05/13/[address] [address] documented as of this encounter
--- OUTSIDE RECORDS SUMMARY | 2021-11-29 00:28 | XMS_ITS | Encounter Summary ---
:1970 Author Organization [facility] Address [address] [place] [address] Care Team Providers Name Role Phone Philip Schulz MD Primary Care Provider Reason for Visit Reason Comments Other Encounter Details Date Type Department Care Team Description 08/12/2017 Refill [facility] Hematology Dit Jessi mehta MD PhD Other & Oncology - [facility] [address] [address] [address] [place], [place] [phone] (Wo rk) Social History [...] XL) TAKE 1 TABLET DAILY 90 Tab 0 0 08/12/2017 08/24/2017 300 mg XL tabletIndications: Depression, unspecified depression type, Malignant neoplasm of female breast (HCC-CMS) (HCC) documented in this encounter Miscellaneous Notes Telephone Encounter - Carmen Overton RN - 08/12/2017 9639 EDT Renewal prescription processed for bupropion through [facility] per Dr Pleitez. Sanitation Associate will contact pt with a follow-up visit because she currently isn't scheduled to be seen. Sanitation Associate contacted pt and she is currently being followed by a provider at [facility] and would prefer to not be schedule in our clinic at this time. Prescription for wellbutrin has been canceled if pt isn't being followed by Dr Pleitez. Called and left message for Ms Dow to notify her the prescription for wellbutrin will not be filled by Dr Pleitez and pt should contact her PCP for this prescription. [facility] was going to contact pt's PCP to request refill as well. documented in this encounter Plan of Treatment Upcoming Encounters Date Type Specialty Care Team Description 12/16/2021 Appointment Infusion Therapy 04/15/2022 Office Visit Hematology and Oncology Poppy Felton PA-C 111 [facility], [facility], [facility] 2 [place], [place] [phone] (Wo rk) 05/30/2022 Office Visit Surgical Oncology Asa Cameron MD 111 [facility] venue [facility], [facility], Level [address] [place], [place] [phone] (Wo rk) documented as of this encounter Visit Diagnoses Diagnosis Depression, unspecified depression type Malignant neoplasm of female breast ([facility]) Malignant neoplasm of breast (female), u nspecified site documented in this encounter Discontinued Medications Medication Sig Discontinue Reason Start Date End Date buPROPion (WELLBUTRIN XL) Take 1 Tab by mouth Reorder 08/28/19 17 08/12/2017 300 mg XL daily. tabletIndications: Depression, unspecified depression type, Malignant neoplasm of female breast, unspecified laterality, unspecified site of breast documented as of this encounter Care Teams Taxi Servicer Relationship Specialty Start Date End Date Philip Schulz MD PCP - General 05/14/16 12/06/[address] [place] [address] documented as of this encounter
--- OUTSIDE RECORDS SUMMARY | 2021-11-29 00:28 | XMS_ITS | Encounter Summary ---
:1970 Author Organization [facility] Address [address] [place] [address] Care Team Providers Name Role Phone Evert Perdomo MD Primary Care Provider Reason for Visit Reason Comments Follow-up Encounter Details Date Type Department Care Team Description 03/26/2016 Office Visit [facility] Jessi Pleitez MD Malig nant neoplasm of female breast, unspecified laterality, unspecified site of breast (Primary Dx); Hematology & PhD Personal history of malignant neoplasm o f breast Oncology - [facility] [address] [place], [place] [address] [place] [address], [place] [id number] (Wo rk) Social History Tobacco Use Types [...] Sign Reading Time Taken Comments Blood Pressure 98/62 03/26/2016 0922 EST Pulse 100 03/26/2016 0922 EST Temperature 37.3 ??C (99.2 ??F) 03/26/2016 0922 EST Respiratory Rate 16 03/26/2016 0922 EST Oxygen Saturation 98% 03/26/2016 0922 EST Inhaled Oxygen Concentration - - Weight 62.2 kg (137 lb 1.6 oz) 03/26/2016 0922 EST Height - - Body Mass Index 21.8 12/19/2015 1118 EDT documented in this encounter [...] of this encounter Progress Notes Poppy Felton PA - 03/26/2016 0900 EST Jia Dow is a 45 y.o.yo female presenting in clinic today for regular follow up of breast cancer, and discussion of therapy options. Chief Complaint Patient presents with ??? Follow-up PROBLEM LIST: ?? 1. Invasive adenocarcinoma of the right breast identified based palpable mass in June 2011. ?? a. Total mastectomy and prophylactic mastectomy performed 08/14/2011 with pathology revealing a 1.2 cm invasive ductal carcinoma of the right breast, well-differentiated, lymphovascular invasion identified on the core biopsy and by DFCI there was an area on the mastectomy specimen. 0/4 lymph nodes; ER+>90%, AZ+ > 90%; HER-2 2+ by immunohistochemistry and negative by FISH. Oncotype DX score 20 (intermediate range). ?? b. Initiated tamoxifen 08/2011. Reported side effects including depression, reduced libido, hot flashes, and memory changes. Stopped due to interaction with Wellbutrin, with a trial of toremifene (requiring hold on trazodone). Side effects and symptoms related to these several med changes. 2. Family history of breast cancer, genetic testing negative for BRCA mutation 3. Other chronic health problems include ADHD, depression and anxiety. From Dr Perdomo's note of 03/12/16: She has had a tumultuous course with her medications as she stopped tamoxifen, was then able to restart Wellbutrin, began toremifene, and then had to stop trazodone. She feels like the coincidence of stopping the trazodone and beginning the new hormonal medication mayhave led to the recent anxiety. For over a year, she has felt that her speed of processing has been poor as well, but notes that that has been much better off of tamoxifen. HISTORY OF THE PRESENT ILLNESS: Jia returns for routine surveillance, and to discuss antiestrogen treatment. Of note, she is up to date on surveillance with Dr Cameron, having seen him about 3 months ago, with no worrisome findings. She has implant reconstruction and does not merit mammography. Shewill be seeing Dr Cameron annually, each December. Regarding tamoxifen and toremifene, the patient has had a nicho experience with switching around her medication for her mood and ADHD, and this is documented above, from Dr Perdomo's note. Ultimately she is now off all antiestrogen, and would like to know how important it would be for her to restart. She knows she has completed almost 5 years, but alsoknows that 10 years is now becoming more the norm. She is dealing currently with her teenage daughter going through depression, and feels that when she herself is on tamoxifen or toremifene and not on her usual meds, she is less able to deal calmly with her daughter's mood problems. REVIEW OF SYSTEMS: Symptom report form was completed and reviewed with the patient. Symptoms as discussed above. She notes fatigue, which she rates as grade 1 to 2. Insomnia, which is longstanding and rated at grade 2. Anxiety and depression, grades 1 to 2, at times interfering with activities. Last menstrual period was March 04 of this year. Remainder of system review is negative. Past Medical History: Diagnosis Date ??? Breast cancer 07/2011 Patient Active Problem List Diagnosis Date Noted ??? Personal history of malignant neoplasm of breast 02/13/2015 Priority: Medium ??? Malignant neoplasm of breast 08/04/2011 ??? Episodic mood disorder 09/09/2010 ??? Depression 12/18/2009 ??? ADHD (attention deficit hyperactivity disorder) 12/18/2009 Past Surgical History: Procedure Laterality Date ??? [...] Topics Concern ??? None Social History Narrative Medications Prior to Today's Visit Medication Sig ??? buPROPion (WELLBUTRIN XL) 300 mg XL tablet Take 1 Tab by mouth daily. ??? lisdexamfetamine (VYVANSE) 40 mg capsule Take 1 Cap by mouth every morning for 90 days. EarliestFill Date: 01/25/16 Daily Max: 40 mg ??? LORazepam (ATIVAN) 1 mg tablet Take 1 Tab by mouth 2 times daily as needed for Anxiety (PMS). Daily Max: 2 mg ??? Toremifene (FARESTON) 60 mg tablet Take 60 mg by mouth daily. ??? traMADol (ULTRAM) 50 mg tablet Take 1 Tab by mouth every 6 hours as needed for Pain. Daily Max: 200 mg (Patient not taking: Reported on 01/21/2016) ??? traZODone (DESYREL) 50 mg tablet Take 1 Tab by mouth at bedtime. Reported on 01/21/2016 ??? zolpidem (AMBIEN) 10 mg tablet Take 1 Tab by mouth at bedtime as needed for Sleep. Daily Max: 10mg (Patient not taking: Reported on 03/26/2016) No facility-administered medications prior to visit. No Known Allergies Objective: Visit Vitals ??? BP 98/62 ??? Pulse 100 ??? Temp 37.3 ??C (99.2 ??F) (Tympanic) ??? Resp 16 ??? Wt 62.2 kg (137 lb 1.6 oz) ??? LMP 03/04/2016 (Exact Date) ??? SpO2 98% ??? BMI 21.8 kg/m2 Body mass index is 21.8 kg/(m^2). The patient appears well. Affect is a little flat Mood appropriate, speech and thought process intact. HEENT exam benign. Neck is supple without lymphadenopathy. No supraclavicular lymphadenopathy. Lungs are clear. Heart has regular rate and rhythm. Reconstruction exam deferred given recent exam with Dr Cameron. Abdomen is soft and nontender without mass or organomegaly. Lower extremities are without edema. ASSESSMENT: Jia's breast cancer diagnosis and therapy thus far are well documented above. She hashad a difficult time with antiestrogen (tamoxifen and toremifene), by virtue of the side effect profiles, and also difficulty with managing her mental health medications, given interactions. Currently,she is off antiestrogen therapy and feels she would prefer to stay off therapy for the time being, as she is trying to stay grounded to deal with her daughter's own issues with depression. Jia feelsmuch better on her own current regimen of Wellbutrin, Vyvanse and trazodone. We had a long discussion about options. Jia has completed over 4 years of treatment and 5 years is generally recommended; however, there may be benefit to continuing for a full 10 years. We discussed the option of checking the Breast Cancer Index in order to clarify how much benefit Jia will receive from extended therapy with tamoxifen. iJa is willing to go ahead with this testing, in order to help make choices going forward. We will plan to send the testing and see Jia back in a few months to review the result. The patient was seen and discussed with Dr Jessi Pleitez. PLAN: 1. Continue to hold tamoxifen for the time being. 2. Breast Cancer Index will be sent. 3. Continue routine surveillance with Dr Asa Cameron, now scheduled for every December. 4. We will see Jia back in about 2 months, to review the BCI results and for further discussion of plan. Jia is well aware to contact us sooner than her scheduled visit with any acute concerns orquestions. TANIYA Soni 03/26/2016 12:30 documented in this encounter Plan of Treatment Upcoming Encounters Date Type Specialty Care Team Description 12/16/2021 Appointment Infusion Therapy 04/15/2022 Office Visit Hematology and Oncology Poppy Felton PA-C [address] [facility], [facility] 2 [place], [place] [phone] (Wo rk) 05/30/2022 Office Visit Surgical Oncology Asa Cameron MD 111 [facility] 2 [place], [place] [phone] (Wo rk) documented as of this encounter Visit Diagnoses Diagnosis Malignant neoplasm of female breast, uns pecified laterality, unspecified site of breast - Primary Personal history of malignant neoplasm o f breast documented in this encounter Discontinued Medications Medication Sig Discontinue Reason Start Date End Date traMADol (ULTRAM) 50 mg Take 1 Tab by mouth 12/20/2015 03/26/2016 tablet every 6 hours as needed for Pain. Daily Max: 200 mg zolpidem (AMBIEN) 10 mg Take 1 Tab by mouth 02/11/2016 03/26/2016 tablet at bedtime as needed for Sleep. Daily Max: 10 mg Toremifene (FARESTON) 60 Take 60 mg by mouth 6 03/26/2016 mg tabletIndications: daily. Malignant neoplasm of female breast, unspecified laterality, unspecified site of breast documented as of this encounter Care Teams Unix Engineer Relationship Specialty Start Date End Date Evert Perdomo MD PCP - General 10/13/08 05/13/[address] [address] documented as of this encounter
--- OUTSIDE RECORDS SUMMARY | 2021-11-29 00:28 | XMS_ITS | Encounter Summary ---
:[address] [facility] Address [address] [place] [address] Care Team Providers Name Role Phone Evert Perdomo MD Primary Care Provider Reason for Visit Reason Onset Date Comments Medications Refill 02/20/2016 Encounter Details Date Type Department Care Team Description 02/20/2016 Refill [facility] Jessi Pleitez MD PhD Medications Refill Hematology & Oncology - [address] [place] [address], [address] [place], [place] [address] [place] [address] [phone] (Wo rk) Social History Tobacco Use [...] 1 Tab by mouth 90 Tab 1 1 04/22/2015 08/27/2016 300 mg XL daily. tabletIndications: Depression, unspecified depression type, Malignant neoplasm of female breast, unspecified laterality, unspecified site of breast documented in this encounter Miscellaneous Notes Telephone Encounter - Carmen Overton RN - 02/20/2016 1446 EST Renewal prescription for wellbutrin XL processed through [facility] pharmacy. Telephone Encounter - Carmen Overton RN - 02/20/2016 1417 EST From: Jia Dow To: Jessi Pleitez MD Sent: 02/20/2016 13:16 EST Subject: Medication Renewal Request Original authorizing provider: MD Jia Posada would like a refill of the following medications: buPROPion (WELLBUTRIN XL) 300 mg XL tablet [Jessi Pleitez MD] [facility] [address] [facility] Comment: Please call in a 90 day supply abby. My insurance will not pay for another 30 day supply as it has been filled twice. Thanks! documented in this encounter Plan of Treatment Upcoming Encounters Date Type Specialty Care Team Description 12/16/2021 Appointment Infusion Therapy 04/15/2022 Office Visit Hematology and Oncology Poppy Felton PA-C 111 [facility], [facility] 2 [place], [place] [phone] (Wo rk) 05/30/2022 Office Visit Surgical Oncology Asa Cameron MD [address] [facility], [facility] 2 [place], [place] [phone] (Wo rk) documented as of this encounter Visit Diagnoses Diagnosis Depression, unspecified depression type Malignant neoplasm of female breast, uns pecified laterality, unspecified site of breast documented in this encounter Discontinued Medications Medication Sig Discontinue Reason Start Date End Date buPROPion (WELLBUTRIN XL) Take 1 Tab by mouth Reorder 12/27/19 16 02/20/2016 300 mg XL daily. tabletIndications: Depression, unspecified depression type, Malignant neoplasm of female breast, unspecified laterality, unspecified site of breast documented as of this encounter Care Teams Edge Roller Relationship Specialty Start Date End Date Evert Perdomo MD PCP - General 10/13/08 05/13/[address] [address] documented as of this encounter
--- OUTSIDE RECORDS SUMMARY | 2021-11-29 00:28 | XMS_ITS | Encounter Summary ---
:1970 Author Organization [facility] Address [address] [place] [address] Care Team Providers Name Role Phone Evert Perdomo MD Primary Care Provider Reason for Visit Reason Onset Date Comments Medications Refill 12/24/2015 Encounter Details Date Type Department Care Team Description 12/24/2015 Refill [facility] Jessi Pleitez MD PhD Medications Refill Hematology & Oncology - [address] [place] [address], [address], [address] [place], [place] [address] [place] [address] [phone] (Wo rk) Social History Tobacco Use [...] Take 1 Tab by mouth 30 Tab 2 1 02/25/2015 02/20/2016 300 mg XL daily. tabletIndications: Depression, unspecified depression type, Malignant neoplasm of female breast, unspecified laterality, unspecified site of breast documented in this encounter Miscellaneous Notes Telephone Encounter - Carmen Overton RN - 12/27/2015 1047 EDT Renewal prescription for bupropion has been processed through [facility] in [place], [place]. Pt has stopped tamoxifen and is now taking toremifene. Telephone Encounter - Carmen Overton RN - 12/26/2015 0807 EDT From: Jia Dow To: Jessi Pleitez MD Sent: 12/24/2015 14:45 EDT Subject: Medication Renewal Request Original authorizing provider: MD Jia Posada would like a refill of the following medications: buPROPion (WELLBUTRIN XL) 150 mg XL tablet [Jessi Pleitez MD] Preferred pharmacy: [id number] Comment: Can I please change this dose to my regular dose of 300 mg? I discussed with Dr. Pleitez that I'd increase this dose once I'd discontinued tamoxifen. Thanks! documented in this encounter Plan of Treatment Upcoming Encounters Date Type Specialty Care Team Description 12/16/2021 Appointment Infusion Therapy 04/15/2022 Office Visit Hematology and Oncology Poppy Felton PA-C 111 [facility], [facility] 2 [place], [place] [phone] (Wo rk) 05/30/2022 Office Visit Surgical Oncology Asa Cameron MD 111 [facility] 2 [place], [place] [phone] (Wo rk) documented as of this encounter Visit Diagnoses Diagnosis Depression, unspecified depression type Malignant neoplasm of female breast, uns pecified laterality, unspecified site of breast documented in this encounter Discontinued Medications Medication Sig Discontinue Reason Start Date End Date buPROPion (WELLBUTRIN XL) Take 1 Tab by mouth Reorder 11/06/19 16 12/24/2015 150 mg XL daily. tabletIndications: Depression, unspecified depression type, Malignant neoplasm of female breast, unspecified laterality, unspecified site of breast documented as of this encounter Care Teams Verifier Operator Relationship Specialty Start Date End Date Evert Perdomo MD PCP - General 10/13/08 05/13/[address] [address] documented as of this encounter
--- OUTSIDE RECORDS SUMMARY | 2021-11-29 00:28 | XMS_ITS | Encounter Summary ---
:1970 Author Organization [facility] Address [address] [place] [address] Care Team Providers Name Role Phone Philip Schulz MD Primary Care Provider Reason for Visit Reason Onset Date Comments Medications Refill 07/30/2017 Encounter Details Date Type Department Care Team Description 07/30/2017 Refill [facility] Adult Philip Hopkins MD Medications Refill Primary Care - [place] [address] [place] [address] [place] [address] [phone] Social History Tobacco Use Types Packs/Day Years [...] Take 1 Tab by mouth 90 Tab 0 07/31/2017 08/24/2017 tablet at bedtime. documented in this encounter Miscellaneous Notes Telephone Encounter - Yonathan Vallejo RN - 07/31/2017 8391 EDT Requested Prescriptions Pending Prescriptions Disp Refills ??? traZODone (DESYREL) 100 mg tablet 90 Tab 1 [facility] Last Refill Date: 03/20/17 Last Visit Date: 08/04/16 Next Non-Acute Visit Date Scheduled with Care Team: Yes. Visit date not found YONATHAN VALLEJO RN 07/31/2017 16:54 elephone Encounter - Yonathan Vallejo RN - 07/31/2017 [id number] EDT From: Jia Dow To: Philip Schulz MD Sent: 07/30/2017 11:26 EDT Subject: Medication Renewal Request Original authorizing provider: MD Jia Francisco would like a refill of the following medications: traZODone (DESYREL) 100 mg tablet [Philip Schulz MD] [facility] [place] [place] - [address] [facility] Comment: My insurance company ([employer]) should call for approval today for a mail- order 90 day refill. However I am down to just 4 of these left, so if it is possible to follow up with them, if they haven't yet called, this would be much appreciated. documented in this encounter Plan of Treatment Upcoming Encounters Date Type Specialty Care Team Description 12/16/2021 Appointment Infusion Therapy 04/15/2022 Office Visit Hematology and Oncology Poppy Felton, PAChuyC 111 [facility], [facility] 2 [place], [place] [phone] (Wo rk) 05/30/2022 Office Visit Surgical Oncology Asa Cameron MD 111 [facility] 2 [place] [phone] (Wo rk) documented as of this encounter Visit Diagnoses Not on filedocumented in this encounter Discontinued Medications Medication Sig Discontinue Reason Start Date End Date traZODone (DESYREL) 100 TAKE 1 TABLET AT Reorder 03/20/2017 07/30/2017 mg tablet BEDTIME documented as of this encounter Care Teams Annual Giving Officer Relationship Specialty Start Date End Date Philip Schulz MD PCP - General 05/14/16 12/06/[address] [place], [place] [address] [place] [address] documented as of this encounter
--- OUTSIDE RECORDS SUMMARY | 2021-11-29 00:28 | XMS_ITS | Encounter Summary ---
:1970 Author Organization [facility] Address [address] [place] [address] Care Team Providers Name Role Phone Philip Schulz MD Primary Care Provider Reason for Visit Reason Onset Date Comments Medications Refill 06/19/2016 Encounter Details Date Type Department Care Team Description 06/19/2016 Refill [facility] Adult Evert Perdomo MD Medications Refill Primary Care - [address] [address] [phone] (Wo rk) Social History Tobacco Use Types [...] 100 TAKE 1 TABLET AT 90 Tab 0 201609/21/2016 mg tablet BEDTIME documented in this encounter Miscellaneous Notes Telephone Encounter - Khadra Vaughn RN - 06/19/2016 4576 EDT Medication(s) Requested: Trazodone [facility] Last Refill Date: 05/09/16 Last Visit Date: 03/12/16 - w/ Dr. Perdomo Next Visit Date: Visit date not found, pt states it is difficult for her to schedule visits due to her distance away. Is patient out of medication? Unknown Khadra Vaughn RN 06/19/2016 7:59 documented in this encounter Plan of Treatment Upcoming Encounters Date Type Specialty Care Team Description 12/16/2021 Appointment Infusion Therapy 04/15/2022 Office Visit Hematology and Oncology Poppy Felton PA-C [address] [phone] (Larissa felder) 05/30/2022 Office Visit Surgical Oncology Asa Cameron MD [address] [place] [address] [phone] (Wo rk) documented as of this encounter Visit Diagnoses Not on filedocumented in this encounter Discontinued Medications Medication Sig Discontinue Reason Start Date End Date traZODone (DESYREL) 100 TAKE 1 TABLET AT 05/09/2016 06/19/2016 mg tablet BEDTIME documented as of this encounter Care Teams Assistant Plant Control Operator Relationship Specialty Start Date End Date Philip Schulz MD PCP - General 05/14/16 12/06/[address] [place] [address] [place] [address] documented as of this encounter
--- OUTSIDE RECORDS SUMMARY | 2021-11-29 00:28 | XMS_ITS | Encounter Summary ---
:1970 Author Organization [facility] Address [address] [place] [address] Care Team Providers Name Role Phone Evert Perdomo MD Primary Care Provider Reason for Referral Laboratory Services (Routine) - Closed Specialty Diagnoses / Procedures Referred By Contact Refer red To Contact Diagnoses Personal history of malignant neoplasm of breast Christiana Jo RN Procedures PROTIME Referral ID Status Reason Start Date Expiration Date Visits Requ ested Visits Authorized Closed 12/11/2015 1 1 aboratory Services (Routine) - Closed Specialty Diagnoses / Procedures Referred By Contact Refer red To Contact Diagnoses Personal history of malignant neoplasm of breast Christiana Jo RN Procedures PTT Referral ID Status Reason Start Date Expiration Date Visits Requ ested Visits Authorized Closed 12/11/2015 1 1 aboratory Services (Routine) - Closed Specialty Diagnoses / Procedures Referred By Contact Refer red To Contact Diagnoses Personal history of malignant neoplasm of breast Christiana Jo RN Procedures BASIC METABOLIC PANEL Referral ID Status Reason Start Date Expiration Date Visits Requ ested Visits Authorized Closed 12/11/2015 1 1 aboratory Services (Routine) - Closed Specialty Diagnoses / Procedures Referred By Contact Refer red To Contact Diagnoses Personal history of malignant neoplasm of breast Christiana Jo RN Procedures HEMAGRAM Referral ID Status Reason Start Date Expiration Date Visits Requ ested Visits Authorized Closed 12/11/2015 1 1 Reason for Visit Reason Comments Pre-op Exam Encounter Details Date Type Department Care Team Description 12/11/2015 Office Visit [facility] Marzena Ordonez onal history of Plastic, Reconstructive SMD malignant neoplasm & Cosmetic Surgery - [address] of breast (Primary [place] [address] Dx) [address] [facility], [address] [address] [place] [address] [phone] Social History Tobacco Use Types Packs/Day Years [...] documented as of this encounter Progress Notes Marzena Ordonez MD - 12/11/2015 1115 EDT Jia returns today for her preoperative visit prior to fat grafting to bilateral breasts. The patient is feeling well with no complaints. We again discussed the nature of surgery in detail and recovery time. All questions were answered and informed consent was obtained. The patient agreed to proceedand informed consent was obtained. She will follow up after surgery. documented in this encounter Plan of Treatment Upcoming Encounters Date Type Specialty Care Team Description 12/16/2021 Appointment Infusion Therapy 04/15/2022 Office Visit Hematology and Oncology Poppy Felton PA-C [address] [phone] (Wo rk) 05/30/2022 Office Visit Surgical Oncology Asa Cameron MD [address] [phone] (Wo rk) Scheduled Orders Name Type Priority Associated Diagnoses Order S chedule HEMAGRAM Lab Routine Personal history of Expected : 12/11/2015 malignant neoplasm of (Appro ximate), Expires: breast 12/10/2016 BASIC METABOLIC PANEL Lab Routine Personal history of Expected: 12/11/2015 malignant neoplasm of (Appro ximate), Expires: breast 12/10/2016 PTT Lab Routine Personal history of Expected : 12/11/2015 malignant neoplasm of (Appro ximate), Expires: breast 12/10/2016 PROTIME Lab Routine Personal history of Expected : 12/11/2015 malignant neoplasm of (Appro ximate), Expires: breast 12/10/2016 documented as of this encounter Visit Diagnoses Diagnosis Personal history of malignant neoplasm o f breast - Primary documented in this encounter Care Teams Oil And Gas Principal Relationship Specialty Start Date End Date Evert Perdomo MD PCP - General 10/13/08 05/13/[address] [address] documented as of this encounter
--- OUTSIDE RECORDS SUMMARY | 2021-11-29 00:28 | XMS_ITS | Encounter Summary ---
:1970 Author Organization [facility] Address [address] [place] [address] Care Team Providers Name Role Phone Evert Perdomo MD Primary Care Provider Reason for Visit Reason Onset Date Comments Medications Refill 01/21/2016 Encounter Details Date Type Department Care Team Description 01/21/2016 Refill [facility] Adult Evert Perdomo MD Medications Refill Primary Care - [address] [phone] (Wo rk) Social History Tobacco Use Types [...] Take 1 Cap by 90 Cap 0 201508/04/2016 40 mg capsule mouth every morning for 90 days. Earliest Fill Date: 01/25/16 Daily Max: 40 mg documented in this encounter Miscellaneous Notes Telephone Encounter - Khadra Vaughn RN - 01/22/2016 0803 EST Last office visit 12/11/15 Refill for: vyvanse Last prescribed: 10/27/15 elephone Encounter - Khadra Vaughn RN - 01/22/2016 0801 EST From: Jia Dow To: Evert Perdomo MD Sent: 01/21/2016 23:34 EST Subject: Medication Renewal Request Original authorizing provider: MD Jia Ellis would like a refill of the following medications: lisdexamfetamine (VYVANSE) 40 mg capsule [Evert Perdomo MD] Preferred pharmacy: [facility] [place] [address] [address] [facility] Comment: Impt: 90 day supply. Please renew as a 90 day supply to [facility] online mail service. It needs to be sent to them, not faxed. Thank you! Call [phone] with any questions. documented in this encounter Plan of Treatment Upcoming Encounters Date Type Specialty Care Team Description 12/16/2021 Appointment Infusion Therapy 04/15/2022 Office Visit Hematology and Oncology Poppy Felton PA-C 111 [facility], [facility] 2 [place], [place] [phone] (Wo rk) 05/30/2022 Office Visit Surgical Oncology Asa Cameron MD 111 [facility], [facility] 2 [place], [place] [address] (Wo rk) documented as of this encounter Visit Diagnoses Not on filedocumented in this encounter Discontinued Medications Medication Sig Discontinue Reason Start Date End Date lisdexamfetamine (VYVANSE) Take 1 Cap by Reorder 10/27/2015 01/21/2016 40 mg capsule mouth every morning for 90 days. Earliest Fill Date: 10/27/15 Daily Max: 40 mg documented as of this encounter Care Teams Orthotic Fitter Relationship Specialty Start Date End Date Evert Perdomo MD PCP - General 10/13/08 05/13/[address] [place] [address] [id number] documented as of this encounter
--- OUTSIDE RECORDS SUMMARY | 2021-11-29 00:28 | XMS_ITS | Encounter Summary ---
:1970 Author Organization [facility] Address [address] [place] [address] Care Team Providers Name Role Phone Philip Schulz MD Primary Care Provider Reason for Visit Reason Onset Date Comments Medications Refill 08/27/2016 Encounter Details Date Type Department Care Team Description 08/27/2016 Refill [facility] Jessi Pleitez MD PhD Medications Refill Hematology & Oncology - [address] [place] [address], [address] 2 [place], [place] [id number] [place] [address] [phone] (Wo rk) Social History Tobacco Use [...] Tab by mouth 90 Tab 1 0 08/27/2016 08/12/2017 300 mg XL daily. tabletIndications: Depression, unspecified depression type, Malignant neoplasm of female breast, unspecified laterality, unspecified site of breast documented in this encounter Miscellaneous Notes Telephone Encounter - Carmen Overton RN - 08/27/2016 1708 EDT Renewal prescription for Wellbutrin has been processed through [facility] pharmacy. Requested operations scheduler schedule a FUR visit for pt. elephone Encounter - Carmen Overton RN - 08/27/2016 1706 EDT From: Jia Dow To: Jessi Pleitez MD Sent: 08/27/2016 16:59 EDT Subject: Medication Renewal Request Original authorizing provider: MD Jia Posada would like a refill of the following medications: buPROPion (WELLBUTRIN XL) 300 mg XL tablet [Jessi Pleitez MD] Preferred pharmacy: [facility] - [place], [place] - [address] [facility] Comment: 90 day supply please documented in this encounter Plan of Treatment Upcoming Encounters Date Type Specialty Care Team Description 12/16/2021 Appointment Infusion Therapy 04/15/2022 Office Visit Hematology and Oncology Poppy Felton PA-C [facility], [facility] 2 [place], [place] [phone] (Wo rk) 05/30/2022 Office Visit Surgical Oncology Asa Cameron MD 111 [facility], [facility] 2 [place], [place] [phone] (Wo rk) documented as of this encounter Visit Diagnoses Diagnosis Depression, unspecified depression type Malignant neoplasm of female breast, uns pecified laterality, unspecified site of breast documented in this encounter Discontinued Medications Medication Sig Discontinue Reason Start Date End Date buPROPion (WELLBUTRIN XL) Take 1 Tab by mouth Reorder 02/20/20 16 08/27/2016 300 mg XL daily. tabletIndications: Depression, unspecified depression type, Malignant neoplasm of female breast, unspecified laterality, unspecified site of breast documented as of this encounter Care Teams Thread Milling Machine Set Up Operator Relationship Specialty Start Date End Date Philip Schulz MD PCP - General 05/14/16 12/06/[address] [place] [address] [place] [address] documented as of this encounter
--- OUTSIDE RECORDS SUMMARY | 2021-11-29 00:28 | XMS_ITS | Encounter Summary ---
:1970 Author Organization [facility] Address [address] [place] [address] Care Team Providers Name Role Phone Evert Perdomo MD Primary Care Provider Reason for Visit Reason Onset Date Comments Medications Refill 01/28/2016 Encounter Details Date Type Department Care Team Description 01/28/2016 Telephone [facility] Adult Evert Perdomo Ala, Medications Refill Primary Care - Hallie ROA [address] [place] [address] [address] [place], [place] [address] (Wo rk) Social History Tobacco Use Types [...] this encounter Miscellaneous Notes Telephone Encounter - Pauline Simmons - 01/28/2016 1453 EST This was mailed to [facility] on 01/22/16. Left message w/Patient elephone Encounter - Khadra Vaughn RN - 01/28/2016 0737 EST Please confirm this was sent to her mail order. elephone Encounter - Khadra Vaughn RN - 01/28/2016 0736 EST From: Jia Dow To: Evert Perdomo MD Sent: 01/28/2016 0:54 EST Subject: Medication Renewal Request Original authorizing provider: MD Jia Ellis would like a refill of the following medications: lisdexamfetamine (VYVANSE) 40 mg capsule [Evert Perdomo MD] Preferred pharmacy[facility] [address] [facility] Comment: I requested this last week but never received confirmation it was mailed to [facility] (90 day supply) documented in this encounter Plan of Treatment Upcoming Encounters Date Type Specialty Care Team Description 12/16/2021 Appointment Infusion Therapy 04/15/2022 Office Visit Hematology and Oncology Poppy Felton PA-C 111 [facility], [facility], [facility] 2 [place], [place] [phone] (Wo rk) 05/30/2022 Office Visit Surgical Oncology Asa Cameron MD 111 [facility], [facility], Level 2 [place], [place] [phone] (Wo rk) documented as of this encounter Visit Diagnoses Not on filedocumented in this encounter Care Teams Tray Setter Relationship Specialty Start Date End Date Evert Perdomo MD PCP - General 10/13/08 05/13/[address] [address] documented as of this encounter
--- OUTSIDE RECORDS SUMMARY | 2021-11-29 00:28 | XMS_ITS | Encounter Summary ---
:1970 Author Organization [facility] Address [address] [place] [address] Care Team Providers Name Role Phone Evert Perdomo MD Primary Care Provider Encounter Details Date Type Department Care Team Description 01/21/2016 Results Only [facility] Asa Cameron MD Imaging Surgical Oncology - [address] [place] [address], [address], [address] 2 [place], [place] [phone] [place] [phone] (Wo rk) Social History Tobacco Use Types [...] Hematology and Oncology Poppy Felotn PA-C 111 [facility], [facility], [facility] 2 [place], [place] [phone] (Wo rk) 05/30/2022 Office Visit Surgical Oncology Asa Cameron MD 111 [facility], [facility] 2 [place], [place] [phone] (Wo rk) documented as of this encounter Procedures Procedure Name Priority Date/Time Associated Diagnosis Comme [facility] 01/21/2016 11:16 Results for this BREAST-BREAST CARE EST procedure are in CENTER ONLY the results section. documented in this encounter Results [facility] BREAST-BREAST CARE CENTER ONLY (01/21/2016 11:16 EST) Anatomical Region Laterality Modality Other Specimen Narrative [facility] BREAST IMAGING MAIN C AMPUS - 01/21/2016 11:16 EST See Notes Tab. Procedure Note ED TECH, IMAGING - 01/21/2016 See Notes Tab. Performing Organization Address City/State/ZIP Code Phon e Number [facility] BREAST IMAGING [facility] documented in this encounter Visit Diagnoses Not on filedocumented in this encounter Care Teams Paint Roller Covermaker Relationship Specialty Start Date End Date Evert Perdomo MD PCP - General 10/13/08 05/13/[address] [address] documented as of this encounter
--- OUTSIDE RECORDS SUMMARY | 2021-11-29 00:28 | XMS_ITS | Encounter Summary ---
:[address] [facility] Address [address] [place] [address] Care Team Providers Name Role Phone Philip Schulz MD Primary Care Provider Reason for Visit Reason Comments Follow-up breast recon discussion Encounter Details Date Type Department Care Team Description 09/04/2017 Office Visit [facility] Roman Chino/Ariel ortega reconstruction, bilateral (Primary Dx); Plastic, Reconstructive Cindy Norwood FACS Personal history of malignant neoplasm o f breast & Cosmetic Surgery - [address], [address] [facility] [address] [place] [address] (Work) [phone] Social History Tobacco Use Types Packs/Day Years [...] this encounter Progress Notes Roman Chino MD - 09/04/2017 1430 EDT Elyssa follows up for her bilateral breast reconstruction. She originally underwent her bilateral mastectomies by Dr. Asa Cameron tissue actuarial intern reconstruction by me. She subsequently had her expanders converted to gel implants at another institution as the three-month consolidation was not convenient for her schedule. She subsequently moved to [place] where she had the silicone implants exchangedto what sound like form stable anatomic textured implants. She also underwent fat grafting at this time. She had her nipple reconstruction and areolar tattooing done in [place] as well. She returned to [place] and required re-pigmenting of her areola. She also underwent repeat fat grafting by Dr. Marzena Ordonez in 2016. She returns today feeling that her implants are visible and the rippling in the left breast is particularly bad. On exam she has a very good reconstruction. Her inframammary foldsare symmetric. Her breasts are soft particularly given that she likely has a form stable cohesive gel implant. Her body fat is very low. I can see her pectoralis muscle moving beneath the chest skin above the breast. The edge of the implant laterally on the left breast does have some fairly obvious rippling. She has no significant adipose tissue palpable between the dermis and the implant capsule/AlloDerm. Jia reports that has Allergan Natrelle implants in place. She knows that there are different sizes but does not know if they are different profiles etc. [address]. I explained to Jia that I am not as familiar with the Allergan implants and we would need to have her sign a release of information so that we could obtain the operative notes and implant data from [place]. She understands that I do not know if changing to a different type implant would be beneficial without knowing which implant was placed. We discussed that repeat fat grafting is possible but that she has very little scaffolding to place the fat in and it would likely take several treatments. Jia has not had any imaging for implant integrity and would like to go ahead and schedule an MRI. She will call us when she has had that study completed and I will review the results and notify her of the findings. I spent 45 minutes with this patient; 40 minutes was spent in counseling and coordination of care asdescribed in the progress note. documented in this encounter Plan of Treatment Upcoming Encounters Date Type Specialty Care Team Description 12/16/2021 Appointment Infusion Therapy 04/15/2022 Office Visit Hematology and Oncology Poppy Felton PA-C [address] [phone] (Wo rk) 05/30/2022 Office Visit Surgical Oncology Asa Cameron MD [address] [phone] (Wo rk) documented as of this encounter Visit Diagnoses Diagnosis S/P breast reconstruction, bilateral - P rimary Breast replaced by other means Personal history of malignant neoplasm o f breast documented in this encounter Care Teams Front Desk Coordinator Relationship Specialty Start Date End Date Philip Schulz MD PCP - General 05/14/16 12/06/[address] [place] [address] [place] [address] documented as of this encounter
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
--- OUTSIDE RECORDS SUMMARY | 2021-11-29 00:28 | XMS_ITS | Encounter Summary ---
:[address] [facility] Address [address] [place] [address] Care Team Providers Name Role Phone Philip Schulz MD Primary Care Provider Jia Minor PA-C Primary Care Provider Unavailable Filomena Ochoa PA-C Primary Care Provider Encounter Details Date Type Department Care Team Description 08/24/2017 [facility] Adult Filomena Angelo PA-C Primary Care - [place] [address] [phone] (Wo rk) Social History Tobacco Use [...] Take 1 Cap by 28 Cap 0 201709/30/2017 40 mg capsule mouth every morning for 28 days. Daily Max: 40 mg lisdexamfetamine (VYVANSE) Take 1 Cap by 28 Cap 0 201709/30/2017 40 mg capsule mouth every morning for 28 days. Daily Max: 40 mg lisdexamfetamine (VYVANSE) Take 1 Cap by 28 Cap 0 201709/28/2017 40 mg capsule mouth every morning for 28 days. Daily Max: 40 mg documented in this encounter Miscellaneous Notes Telephone Encounter - Filomena Ochoa PA - 08/24/2017 4375 EDT Pt needs 3mo refill of vyvanse sent to [facility]. Pt was seen in office today(discussed multiple prescriptions. ) She is taking wellbutrin. She lives in [place] (2hrs away) but used to live in this area. She prefers to keep her PCP office here. [id number]. documented in this encounter Plan of Treatment Upcoming Encounters Date Type Specialty Care Team Description 12/16/2021 Appointment Infusion Therapy 04/15/2022 Office Visit Hematology and Oncology Poppy Felton PA-C [address] [facility], [facility], [facility] 2 [place], [place] [phone] (Wo rk) 05/30/2022 Office Visit Surgical Oncology Asa Cameron MD [address] [facility], [facility], Level 2 [place], [place] [phone] (Wo rk) documented as of this encounter Visit Diagnoses Not on filedocumented in this encounter Discontinued Medications Medication Sig Discontinue Reason Start Date End Date lisdexamfetamine (VYVANSE) Take 1 Cap by Reorder 08/12/2017 08/24/2017 40 mg capsule mouth every morning for 28 days. Daily Max: 40 mg documented as of this encounter Additional Health Concerns Infection Onset Date Last Indicated Resolved Time R/O COVID-19 10/16/2019 10/16/2019 10/21/2019 22:15 EDT documented as of this encounter Care Teams Multiple Needle Stitcher Relationship Specialty Start Date End Date Philip Schulz MD PCP - General 05/14/16 12/06/[address] [place] [address] [place] [address] Jia Minor PA-C PCP - General 12/07/1703/01/18 Filomena Ochoa PA-C PCP - General 03/02/18 2 [place] [address] documented as of this encounter
--- OUTSIDE RECORDS SUMMARY | 2021-11-29 00:28 | XMS_ITS | Encounter Summary ---
:1970 Author Organization [facility] Address [address] [place] [address] Care Team Providers Name Role Phone Philip Schulz MD Primary Care Provider Jia Minor PA-C Primary Care Provider Unavailable Filomena Ochoa PA-C Primary Care Provider [phone] Reason for Visit Reason Onset Date Comments Medications Refill 08/07/2017 Encounter Details Date Type Department Care Team Description 08/07/2017 Refill [facility] Adult Philip Hopkins MD Medications Refill Primary Care - [address] [phone] [place] [address] [phone] Social History Tobacco Use Types Packs/Day Years [...] Take 1 Cap by 28 Cap 0 201708/24/2017 40 mg capsule mouth every morning for 28 days. Daily Max: 40 mg documented in this encounter Miscellaneous Notes Telephone Encounter - Philip Schulz MD - 08/12/2017 1202 EDT Refill provided for 28, I will not sign for any more without seeing her in person. I still do not believe that that being on benzodiazepines and amphetamines is a good long-term prospect. elephone Encounter - Tara Saavedra RN - 08/12/2017 1055 EDT Incoming call from pt. Discussed that 28 days will be sent in pending OV. Reviewed message as below. Saw Dr Schulz once and did not think it was a good match. Pt would like to see Dr Becker, available appointments did not fit for pt's schedule. Scheduled per pt preference with SB 08/24/17 to discuss medications and new PCP. elephone Encounter - Tara Saavedra RN - 08/12/2017 0950 EDT Left message for pt to call back. Discussed with . Tentative plan is to RX vyvanse for 30 days pending OV. Need to discuss with pt. See email. elephone Encounter - Philip Schulz MD - 08/12/2017 0907 EDT Sorry, no. I am simply not going to sign a 90 day prescription for high dose Vyvanse without seeing her again first. I also need to let her know that I will be leaving and the continuation of benzodiazepines + amphetamines needs to be reviewed as other providers might not be inclined to provide these medications. elephone Encounter - Philip Schulz MD - 08/07/2017 1308 EDT This request has been denied until she is seen in the clinic again. elephone Encounter - Melanie Oconnor RN - 08/07/2017 1259 EDT Last OV here was 08/04/16. Last prescription for Vyvanse 40 mg caps was 08/04/16- 11/02/16, #90, 0 RF. She must not take daily. Order is pended for print as she requested. Also will let her know she is due for an OV. elephone Encounter - Melanie Oconnor RN - 08/07/2017 1256 EDT From: Jia Dow To: Philip Schulz MD Sent: 08/07/2017 10:56 EDT Subject: Medication Renewal Request Original authorizing provider: MD Jia Francisco would like a refill of the following medications: lisdexamfetamine (VYVANSE) 40 mg capsule [Philip Schulz MD] Preferred pharmacy: [facility] - [place], [place] - [address] AT [facility] Comment: Impt: 90 day supply, not 30!! Please renew as a 90 day supply to [facility] [employer] online mail service, as has been done in the past. The script needs to be sent to them, not faxed. Thank you so very much!Please call [phone] with any problems or questions! documented in this encounter Plan of Treatment Upcoming Encounters Date Type Specialty Care Team Description 12/16/2021 Appointment Infusion Therapy 04/15/2022 Office Visit Hematology and Oncology Poppy Felton PA-C [address] [place] [phone] (Wo rk) 05/30/2022 Office Visit Surgical Oncology Asa Cameron MD [address] [phone] (Wo rk) documented as of this encounter Visit Diagnoses Not on filedocumented in this encounter Discontinued Medications Medication Sig Discontinue Reason Start Date End Date lisdexamfetamine (VYVANSE) Take 1 Cap by Reorder 08/04/2016 08/12/2017 40 mg capsule mouth every morning for 90 days. Daily Max: 40 mg documented as of this encounter Additional Health Concerns Infection Onset Date Last Indicated Resolved Time R/O COVID-19 10/16/2019 10/16/2019 10/21/2019 22:15 EDT documented as of this encounter Care Teams Unit Tender Relationship Specialty Start Date End Date Philip Schulz MD PCP - General 05/14/16 12/06/[address] [place], [place] [phone] Jia Minor PA-C PCP - General 12/07/1703/01/18 Filomena Ochoa PA-C PCP - General 03/02/18 [address] [place] [phone] documented as of this encounter
--- OUTSIDE RECORDS SUMMARY | 2021-11-29 00:28 | XMS_ITS | Encounter Summary ---
:1970 Author Organization [facility] Address [address] [place] [address] Care Team Providers Name Role Phone Evert Perdomo MD Primary Care Provider Reason for Visit Reason Comments Post-OP Follow Up Encounter Details Date Type Department Care Team Description 01/21/2016 Office Visit [facility] Ailyn Krishnamurthy S/P breast Plastic, Reconstructive L, PA-C reconstruction, & Cosmetic Surgery - [address] ([address] Dx) [address], [address] [place] [phone] Social History Tobacco Use Types Packs/Day Years [...] documented as of this encounter Progress Notes Ailyn Krishnamurthy PA - 01/21/2016 0945 EST SUBJECTIVE: Jia Dow returns in follow up from Fat grafting to bilateral reconstructed breasts on 12/20/2015. She is doing well. She wears abdominal binder infrequently. Pain, nearly resolved, right medial thigh. She has returned to running for exercise. OBJECTIVE: On examination, she is in no distress. Her liposuction donor sites are well healing. Hematoma, resolved, right medial thigh. No pain to palpation of abdomen. Upper pole of bilatreal breastswith improved contour. IMPRESSION: Doing well; POD #31. Improved bilateral contour of breasts. PLAN: Pt to follow up PRN. Photos taken today. Stressed importance of listening to body to return toexercise/fitness regimen. ?? Dr. Ordonez was present for the evaluation of Ms. Dow today documented in this encounter Plan of Treatment Upcoming Encounters Date Type Specialty Care Team Description 12/16/2021 Appointment Infusion Therapy 04/15/2022 Office Visit Hematology and Oncology Poppy Felton PA-C 111 [facility], [facility] 2 [place], [place] [phone] (Larissa felder) 05/30/2022 Office Visit Surgical Oncology Asa Cameron MD 111 [facility], [facility] 2 [place], [place] [phone] (Larissa felder) documented as of this encounter Visit Diagnoses Diagnosis S/P breast reconstruction, bilateral - P rimary Breast replaced by other means documented in this encounter Care Teams Locomotive Crane Operator Relationship Specialty Start Date End Date Evert Perdomo MD PCP - General 10/13/08 05/13/[address] [place] [phone] documented as of this encounter
--- OUTSIDE RECORDS SUMMARY | 2021-11-29 00:28 | XMS_ITS | Encounter Summary ---
:1970 Author Organization [facility] Address [address] [place] [address] Care Team Providers Name Role Phone Philip Schulz MD Primary Care Provider Reason for Visit Reason Comments Follow-up Encounter Details Date Type Department Care Team Description 08/24/[address] [facility] Asa Cameron MD Routine cancer follow-up visit (Primary Dx); Surgical Oncology - [address] [place] [address] al history of breast cancer [facility] [address] [place] [address] [place], [facility] [place] [phone] (Wo rk) Social History Tobacco [...] encounter Progress Notes Asa Cameron MD - 08/24/2017 1630 EDT This office note has been dictated. Asa sheppard MD - 08/24/2017 0000 EDT [facility] BREAST CANCER PROGRAM PROGRESS / FOLLOWUP NOTE - 08/24/2017 PROBLEM: The patient is seen in followup for a history of breast cancer. SUBJECTIVE: The patient is a 47-year-old woman who had a right breast cancer operated in July 2011. She had a right total mastectomy with sentinel node biopsy with implant reconstruction and a prophylactic left total mastectomy with implant reconstruction at the same time. Tumor stage was T1cN0. The patient was treated with endocrine therapy, initially tamoxifen then converted to toremifene. She had about a total of 4 years of treatment and then stopped. She is currently on no treatments. She is seen here in routine followup. She has no new complaints. OBJECTIVE: On clinical examination, she is in no acute distress. She has no scleral icterus. Neck exam reveals no palpable cervical or supraclavicular lymph nodes. There are no palpable nodules in her thyroid. No carotid bruits or JVD are noted. Lungs are clear to auscultation. Heart has a regular rate and rhythm without S3, S4, or murmurs. Breast exam reveals bilateral mastectomies with implant reconstructions. No other skin changes are noted on the right side, there are no discrete palpable abnormalities. She has some very slight nodularity, which is consistent with benign subcutaneous fat nodules. The implant was in good position. There are no palpable lymph nodes in the axilla. The left side similarly has minimal nodularity, which is benign feeling. No dominant masses are felt. The implant was in good position. There are no palpable lymph nodes in the axilla. There were no abdominal masses, no abdominal tenderness, no hepato or splenomegaly was noted. She has good range of motion of the upper extremities. There is no edema in the upper extremities on either side. DIAGNOSTIC DATA: Ultrasound evaluation of the right breast area shows no evidence of recurrent disease in the mastectomy site. The implant was in good position. There are no abnormal lymph nodes in theinternal mammary or axillary region. Left side similarly has an implant in good position. There is no evidence of recurrent disease in the mastectomy bed. There are no abnormal lymph nodes seen in the internal mammary or axillary region. ASSESSMENT: The patient is without evidence of recurrent disease. She is now 6 years out. We will continue to follow her to the 10-year airam. PLAN: We will plan followup again in 1 year. Asa Cameron MD 08 46 AM - Asa Cameron MD en Dictation ID: [id number] cc: Philip Schulz MD, [facility] Primary Care [address] [place] [address] Jessi Pleitez MD, [facility] - Hematology Oncology [address] [place] [id number] signed by Asa Cameron MD at 08/25/2017 12:21 EDTdocumented in this encounter Plan of Treatment Upcoming Encounters Date Type Specialty Care Team Description 12/16/2021 Appointment Infusion Therapy 04/15/2022 Office Visit Hematology and Oncology Poppy Felton, SHAHAB [address] [place] [address], [address] [phone] (Larissa felder) 05/30/2022 Office Visit Surgical Oncology Asa Cameron MD [address] [place] [phone] (Larissa felder) documented as of this encounter Visit Diagnoses Diagnosis Routine cancer follow-up visit - Primary Other follow-up examination Personal history of breast cancer Personal history of malignant neoplasm o f breast documented in this encounter Care Teams Automatic Silk Screen Printer Relationship Specialty Start Date End Date Philip Schulz MD PCP - General 05/14/16 12/06/[address] [place] [address] [place] [phone] documented as of this encounter
--- OUTSIDE RECORDS SUMMARY | 2021-11-29 00:28 | XMS_ITS | Encounter Summary ---
:1970 Author Organization [facility] Address [address] [place] [address] Care Team Providers Name Role Phone Evert Perdomo MD Primary Care Provider Reason for Visit Reason Comments Follow-up Encounter Details Date Type Department Care Team Description 12/27/2015 Office Visit [facility] Ailyn Krishnamurthy S/P breast Plastic, Reconstructive L, PAChuyC reconstruction, & Cosmetic Surgery - [address] ([address] Dx) [address], [address] [place], [place] [phone] Social History Tobacco Use Types Packs/Day Years [...] documented as of this encounter Progress Notes iAlyn Krishnamurthy PA - 12/27/2015 1300 EDT SUBJECTIVE: Jia Dow returns in follow up from Fat grafting to bilateral reconstructed breasts on 12/20/2015. She is doing well. Pain control is adequate without pain medication. Pt states that she did not take the ABX that were prescribed for her. She contends that she is wearing her compression garment daily as advised. Some mild pain, mostly in right medial thigh. She reports walking for physical activity yesterday without change in SX. OBJECTIVE: On examination, she is in no distress. Her liposuction donor sites appear to be well healing. Hematoma, right medial thigh, with mild pain to palpation. No pain to palpation of abdomen. Upper pole of bilatreal breasts with improved contour. Some mild, anticipatory ecchymoses from grafting to bilateral breasts. Rapid dissolving sutures still present. IMPRESSION: Doing well; POD #7. PLAN: Stressed the importance of wearing the compression garment for best result. Pt to increase daily activity slowly, recommending only walks for exercise at this time. No heavy lifting with bilateral UE for a few more weeks. Pt to follow up in 3-4 weeks time or sooner as necessary. Dr. Ordonez was present for the evaluation of Ms. Dow today. documented in this encounter Plan of Treatment Upcoming Encounters Date Type Specialty Care Team Description 12/16/2021 Appointment Infusion Therapy 04/15/2022 Office Visit Hematology and Oncology Poppy Felton PA-C 111 [facility] venue [facility], [facility], [facility] 2 [place], [place] [phone] (Wo rk) 05/30/2022 Office Visit Surgical Oncology Asa Cameron MD 111 [facility], [address] [place], [place] [phone] (Wo rk) documented as of this encounter Visit Diagnoses Diagnosis S/P breast reconstruction, bilateral - P rimary Breast replaced by other means documented in this encounter Care Teams Clam Grader Relationship Specialty Start Date End Date Evert Perdomo MD PCP - General 10/13/08 05/13/[address] [phone] documented as of this encounter
--- OUTSIDE RECORDS SUMMARY | 2021-11-29 00:28 | XMS_ITS | Encounter Summary ---
:1970 Author Organization [facility] Address [address] [place] [address] Care Team Providers Name Role Phone Evert Perdomo MD Primary Care Provider Philip Schulz MD Primary Care Provider Reason for Visit Reason Onset Date Comments Testing 03/26/2016 Breast Cancer Index Encounter Details Date Type Department Care Team Description 03/26/2016 Telephone [facility] Jessi Pleitez MD PhD Testing (Breast Cancer Hematology & Oncology [address] [place] [address] Index) - [facility], [address], [address] [place], [place] [phone] [place] [address] [phone] (Wo rk) Social History Tobacco Use [...] this encounter Miscellaneous Notes Telephone Encounter - Marilou Castro - 03/28/2016 1428 EST Left message for Jia 03/28/16 to review some additional information about [employer] billing and [employer] patient assistance. Asked her to give me a call back to discuss; provided direct number. [employer] on hold per pt. elephone Encounter - Marilou Castro - 03/27/2016 0935 EST Spoke to Jia; she had some additional questions about the billing process for the Breast Cancer Index testing. Answered questions to the best of my ability and asked her to discuss further with her insurance company and testing company [employer]. Left message for [employer] billing department 03/27/16 asking them to give the pt a call to review to provide billing code(s) and review the process in more detail. Patient asked to hold off on sending out for [employer]CI testing until she can have this conversation with [employer]. Notified surg path; they will wait to send out until hearing back from me. Per Surgical Pathology, there is sufficient tissue for testing and a block has been selected. Patient notified 03/27/16. elephone Encounter - Marilou Castro - 03/26/2016 1158 EST Breast Cancer Index (BCI) form completed and signed by Dr. Pleitez. Called [employer] to inquireabout coverage for pt's specific insurance (MVP). Per development representative, while BCI is generallyconsidered [id number], part of their process is working to obtain in-network status and ensuringpt is not responsible for any part of the bill except for deductible/copay/coinsurance, and a Patient Assistance Program is available to assist with these costs as well. Called and spoke to pt 03/26/16to review relevant [employer]CI billing information from [employer] before sending out for this test. She agrees to proceed. [employer] billing information sheet given to patient in person. Provided my direct number for any questions. Breast Cancer Index requisition form, face sheet, and copy of insurance card brought to surgical pathology to send out. Pathology specimen: [id number] signed by Marilou Castro at 03/26/2016 12:14 ESTdocumented in this encounter Plan of Treatment Upcoming Encounters Date Type Specialty Care Team Description 12/16/2021 Appointment Infusion Therapy 04/15/2022 Office Visit Hematology and Oncology Poppy Felton, SHAHAB [address] [phone] (Wo rk) 05/30/2022 Office Visit Surgical Oncology Asa Cameron MD [address] [phone] (Wo rk) documented as of this encounter Visit Diagnoses Not on filedocumented in this encounter Care Teams Stock Drier Tender Relationship Specialty Start Date End Date Evert Perdomo MD PCP - General 10/13/08 05/13/16 108 [facility] [address] [place] [address] Philip Schulz MD PCP - General 05/14/16 12/06/[address] [place], [place] [phone] documented as of this encounter
--- OUTSIDE RECORDS SUMMARY | 2021-11-29 00:28 | XMS_ITS | Encounter Summary ---
:1970 Author Organization [facility] Address [address] [place] [address] Care Team Providers Name Role Phone Philip Schulz MD Primary Care Provider Reason for Visit Reason Comments Injections Encounter Details Date Type Department Care Team Description 09/25/2017 Nurse Only [facility] Unknown, Josh ge MD Need for Tdap Adult Primary Care - Nurse, [facility] Hallie AdultMD vaccination (Primary [place] iFlomena Ochoa PA-C [address] [place] [phone] Dx) [address] [place] [phone] Social History Tobacco Use Types Packs/Day Years [...] documented as of this encounter Progress Notes Yonathan Vallejo, LAMAR - 09/25/2017 1530 EDT Patient in for TDAP vaccine Patient received and reviewed VIS prior to injection Patient was cautioned on potential side effects and signs of potential adverse reactions Patient was encouraged to remain in waiting area for 15 minutes following injection to monitor for severe allergic reaction Patient expressed understanding of these issues with no identified barriers TDAP- lot# [id number], exp 03/14/19 Injection site- left deltoid I was supervised by Dr. Schulz who was present and immediately available in the office suite. YONATHAN VALLEJO RN 09/25/2017 16:03 documented in this encounter Plan of Treatment Upcoming Encounters Date Type Specialty Care Team Description 12/16/2021 Appointment Infusion Therapy 04/15/2022 Office Visit Hematology and Oncology Poppy Felton, PAChuyC [address] [phone] (Wo rk) 05/30/2022 Office Visit Surgical Oncology Asa Cameron MD [address] [phone] (Wo rk) documented as of this encounter Visit Diagnoses Diagnosis Need for Tdap vaccination - Primary Need for prophylactic vaccination with c ombined rbzpsuksvu-wycblfy-rqtxjqrjh (DTP) vaccine documented in this encounter Care Teams Group Home Manager Relationship Specialty Start Date End Date Philip Schulz MD PCP - General 05/14/16 12/06/[address] [place] [address] DR [place], [place] [phone] documented as of this encounter
--- OUTSIDE RECORDS SUMMARY | 2021-11-29 00:28 | XMS_ITS | Encounter Summary ---
:1970 Author Organization [facility] Address [address] [place] [address] Care Team Providers Name Role Phone Philip Schulz MD Primary Care Provider Reason for Visit Reason Comments Medication Management For ADHD, Anxiety. Encounter Details Date Type Department Care Team Description 08[facility] [facility] deficit hyper[facility] disorder (ADHD), unspecified ADHD type (Primary Dx); Adult Primary Care - TANIYA Huang Depression, unspecified depression type [place] [address] [address] [place] [address] Social History Tobacco Use Types Packs/Day [...] Sign Reading Time Taken Comments Blood Pressure 108/68 08/24/2017 1325 EDT Pulse 76 08/24/2017 1325 EDT Temperature 36.7 ??C (98.1 ??F) 08/24/2017 1325 EDT Respiratory Rate 12 08/24/2017 1325 EDT Oxygen Saturation - - Inhaled Oxygen Concentration - - Weight 61.7 kg (136 lb) 08/24/2017 1325 EDT Height 168.9 cm (5' 6.5) 08/24/2017 1325 EDT Body Mass Index 21.62 08/24/2017 1325 EDT documented in this encounter [...] 1 Tab by mouth 90 Tab 3 08/24/2017 12/21/2017 tablet at bedtime. buPROPion (WELLBUTRIN XL) TAKE 1 TABLET DAILY 90 Tab 3 0 08/24/2017 09/09/2018 300 mg XL tabletIndications: Depression, unspecified depression type documented in this encounter Progress Notes Filomena Ochoa PA - 08/24/2017 1315 EDT Subjective: Patient ID: Jia Dow is an 47 y.o. female. Chief Complaint Patient presents with ??? Medication Management For ADHD, Anxiety. HPI Comments: Pt was seeing Dr. Perdomo. She switched to Dr. Schulz. She moved to [place] for [place] and then to [place] her daughter to attend the ski academy. Pt feels like the vyvanse works. She has depression in the winter except for this past winter. Pt has some anxiety around menses. Pt has used this dose of vyvanse and wants to continue this dose as it worked. Pt has been taking 0.5mg -1mg of lorazepam. Pt takes this once a month generally but is worse int hewinter. Pt will take this at night if increased anxiety. Pt will take every other day in the winter.Pt's father had a CVA and he is living closer to her and is at the [facility]. This has been a source of stress. Patient Active Problem List Diagnosis ??? Depression ??? ADHD (attention deficit hyperactivity disorder) ??? Episodic mood disorder (HCC-CMS) ??? Malignant neoplasm of breast (HCC-CMS) Outpatient Prescriptions Marked as Taking for the 08/24/17 encounter (Office Visit) with Filomena Ochoa PA Medication Sig Dispense Refill ??? buPROPion (WELLBUTRIN XL) 300 mg XL tablet TAKE 1 TABLET DAILY 90 Tab 0 ??? lisdexamfetamine (VYVANSE) 40 mg capsule Take 1 Cap by mouth every morning for 28 days. Daily Max: 40 mg 28 Cap 0 ??? LORazepam (ATIVAN) 1 mg tablet Take 1 Tab by mouth 2 times daily as needed for Anxiety (PMS). Daily Max: 2 mg 30 Tab 0 ??? traZODone (DESYREL) 100 mg tablet Take 1 Tab by mouth at bedtime. 90 Tab 0 Review of Systems Constitutional: Negative. Respiratory: Negative. Cardiovascular: Negative. Negative for chest pain and palpitations. Psychiatric/Behavioral: Negative for depression and suicidal ideas. The patient is nervous/anxious (occurs at times, 1-2x/month during summer, more often during winter). - See HPI Objective: There were no vitals taken for this visit. Physical Exam Constitutional: She is oriented to person, place, and time. She appears well- developed and well-nourished. No distress. Cardiovascular: Normal rate and regular rhythm. Pulmonary/Chest: Effort normal and breath sounds normal. Neurological: She is alert and oriented to person, place, and time. Skin: She is not diaphoretic. Psychiatric: She has a normal mood and affect. Her speech is normal and behavior is normal. Judgmentand thought content normal. Cognition and memory are normal. Assessment / Plan: ??? Attention deficit hyperactivity disorder (ADHD), unspecified ADHD type ??? Depression, unspecified depression type ADHD tx with vyvanse -40mg daily. Pt requesting to get 3 rx today - to send to [facility] (can eprescribe to mail order if OK) Depression - Treated with wellbutrin XL 300mg daily Insomnia - taking trazodone 100mg qHS Discussed counseling, pt was in the past Anxiety - discussed tx Pt currently using lorazepam 0.5mg-1mg 1-2x/month Pt's anxiety had increased in the past during winter months Recommend pt f/u in 3-4mo to reeval If anxiety increasing, then would add low dose SSRI to wellbutrin to try to avoid increased lorazepam Pt aware goal is to limit lorazepam to only rare prn usage and not every other day as she had done in the past over winter. Pt was getting rx from [facility] but asked to switch back to this office for all Rx. TANIYA Menon 08/24/2017 13:27 documented in this encounter Plan of Treatment Upcoming Encounters Date Type Specialty Care Team Description 12/16/2021 Appointment Infusion Therapy 04/15/2022 Office Visit Hematology and Oncology Poppy Felton PA-C [address] [phone] (Wo rk) 05/30/2022 Office Visit Surgical Oncology Asa Cameron MD [address] [phone] (Wo rk) documented as of this encounter Visit Diagnoses Diagnosis Attention deficit hyperactivity disorder (ADHD), unspecified ADHD type - Primary Depression, unspecified depression type documented in this encounter Discontinued Medications Medication Sig Discontinue Reason Start Date End Date buPROPion (WELLBUTRIN XL) TAKE 1 TABLET DAILY Reorder 08/13/19 18 08/24/2017 300 mg XL tabletIndications: Depression, unspecified depression type, Malignant neoplasm of female breast (HCC-CMS) (HCC) traZODone (DESYREL) 100 Take 1 Tab by mouth Reorder 07/31/2017 08/24/2017 mg tablet at bedtime. documented as of this encounter Care Teams Stars Coordinator Relationship Specialty Start Date End Date Philip Schulz MD PCP - General 05/14/16 12/06/[address] [place] [address] documented as of this encounter
--- OUTSIDE RECORDS SUMMARY | 2021-11-29 00:28 | XMS_ITS | Encounter Summary ---
:1970 Author Organization [facility] Address [address] [place] [address] Care Team Providers Name Role Phone Evert Perdomo MD Primary Care Provider Reason for Visit Reason Onset Date Comments Appointment Related 04/28/2016 reschedule 05/07 Encounter Details Date Type Department Care Team Description 04/28/2016 Telephone [facility] Jessi Pleitez MD PhD Appointment Related Hematology & Oncology [address] [place] [address] (reschedule 05/07) - [facility], [address] [place], [place] [id number] [place] [address] [phone] (Wo rk) Social History Tobacco Use [...] Notes Telephone Encounter - Marilou Castro - 05/12/2016 1506 EDT Spoke to Jia 05/12/16 to discuss Breast Cancer Index testing further. Notified her that we will not be able to do prior authorization for BCI testing as we are not the billing agency. Pt notes understanding. Confirmed appt with Dr. Pleitez scheduled on Thursday05/14/16 at 10:00 AM. No further questions at this point. elephone Encounter - Lianna Carroll - 04/29/2016 1007 EST Called Jia and rescheduled her apt with Dr. Pleitez to 05/14 at 1000am. Left message for Jia andasked for a call back if this did not work for her. elephone Encounter - Suad Willams - 04/28/2016 1300 EST Reason for Call: Appointment Related (reschedule 05/07) Summary/Symptoms: Patient will be away and needs to reschedule her 05/07/16 appointment. Suad Willams 04/28/2016 13:00 documented in this encounter Plan of Treatment Upcoming Encounters Date Type Specialty Care Team Description 12/16/2021 Appointment Infusion Therapy 04/15/2022 Office Visit Hematology and Oncology Poppy Felton PA-C [address] [facility], [facility] 2 [place] [phone] (Wo rk) 05/30/2022 Office Visit Surgical Oncology Asa Cameron MD [address] [facility], [facility] [address] [place] [phone] (Wo rk) documented as of this encounter Visit Diagnoses Not on filedocumented in this encounter Care Teams National Sales Relationship Specialty Start Date End Date Evert Perdomo MD PCP - General 10/13/08 05/13/[address] [phone] documented as of this encounter
--- OUTSIDE RECORDS SUMMARY | 2021-11-29 00:28 | XMS_ITS | Encounter Summary ---
:1970 Author Organization [facility] Address [address] [place] [address] Care Team Providers Name Role Phone Evert Perdomo MD Primary Care Provider Reason for Referral (Routine) - Closed Specialty Diagnoses / Procedures Referred By Contact Refer benson To Contact Ailyn Krishnamurthy PA-C [address] [place] [phone] Referral ID Status Reason Start Date Expiration Date Visits V isits Requested Authorized [id number] Closed Specialty 12/20/2015 1 1 Services Required Comments See Dr. Ordonez in the office in 7-10 da ys or as scheduled. Please call [phone] for questions or concerns. (Routine) - Closed Specialty Diagnoses / Procedures Referred By Contact Maksim knowles To Contact Ailyn Krishnamurthy PA-C [address] [place] [phone] Referral ID Status Reason Start Date Expiration Date Visits V isits Requested Authorized [id number] Closed Specialty 12/20/2015 1 1 Services Required Comments - Chest pain (angina) - Dizziness or fainting - Decreased urine output - Fever greater than 100.5 or chills - Inability to swallow or increasing dif ficulty swallowing - Increased or new pain - Increased swelling in legs or arms - Nausea or vomiting - Pain unrelieved by medication - Severe or increasing headache - Shortness of breath or rapid breathing - Skin rash - Signs of infection such as pain, redne ss, swelling or drainage at procedure or wound site Encounter Details Date Type Department Care Team Description 12/20/2015 Hospital Encounter [facility] Griffin Ordonez Perioperative Services- S, [address] [place] [address] [place] [address] [place], [place] [id number] [place] [address] [phone] (Wo rk) Social History Tobacco Use Types [...] Sign Reading Time Taken Comments Blood Pressure 102/51 12/20/2015 1600 EDT Pulse - - Temperature 36.5 ??C (97.7 ??F) 12/20/2015 1600 EDT Respiratory Rate 22 12/20/2015 1600 EDT Oxygen Saturation 100% 12/20/2015 1600 EDT Inhaled Oxygen Concentration - - Weight 61.2 kg (135 lb) 12/19/2015 1118 EDT Height 168.9 cm (5' 6.5) 12/19/2015 1118 EDT Body Mass Index 21.46 12/19/2015 1118 EDT documented in this encounter [...] history of malignant neop lasm of breast-Z85.3[ICD-10-CM] F41.9 Anxiety disorder, unspecified-F41. 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 lisdexamfetamine (VYVANSE) Take 1 Cap by 90 Cap 0 201501/21/2016 40 mg capsule mouth every morning for 90 days. Earliest Fill Date: 10/27/15 Daily Max: 40 mg LORazepam (ATIVAN) 1 mg Take 1 Tab by 30 Tab 0 6 01/21/2016 tablet mouth 2 times daily as needed for Anxiety (PMS). Daily Max: 2 mg traMADol (ULTRAM) 50 mg Take 1 Tab [...] 5 mg documented as of this encounter Ordered Prescriptions Prescription Sig Dispensed Refills Start Date End Date traMADol (ULTRAM) 50 mg Take 1 Tab by mouth 30 Tab 0 03/26/2016 tablet every 6 hours as needed for Pain. Daily Max: 200 mg doxycycline (ADOXA) 100 mg Take 1 Tab by mouth 14 Tab 0 12/20/2015 12/27/2015 tablet 2 times daily for 7 days. documented in this encounter Discharge Disposition Disposition Code Departure Means Destination Home or Self Care documented in this encounter Progress Notes Olivia Mendoza RN - 12/20/2015 1548 EDT Pt and given discharge instructions both verbalize understanding. Pt able to amb to bathroomtol activity well. Pt filemon po fluids well. Removed piv applied pressure to the site will cont to follow. Taylor Gutierrez RN - 12/19/2015 1133 EDT The Patient Declines testing for prior to the Surgery/ Procedure. The following were Explained to the Patient: ?? Testing is done to minimize the risk of potential adverse effects of Anesthesia/ Surgery on a developing fetus ?? It is a [facility] Policy to test all females who are having menstrual periods ?? It is for their safety and that of a developing fetus should they be ?? The Patient does have the right to decline and understands the risks of not obtaining the test The Surgeon Dr. Ordonez and Anesthesiologist were notified. Taylor Gutierrez RN - 12/19/2015 1128 EDT Jia Dow has been instructed as follows regarding medication administration for the day of the scheduled procedure. Date of Surgery: 12-19-15 Instructions for Taking Medications Day of Surgery Medication Sig Last Dose Hold DOS Take DOS buPROPion (WELLBUTRIN XL) 150 mg XL tablet Take 1 Tab by mouth daily. Patient taking differently: Take 300 mg by mouth daily. Yes ibuprofen (MOTRIN) 600 mg tablet Take 1 Tab by mouth every 6 hours as needed for Pain Not taking lisdexamfetamine (VYVANSE) 40 mg capsule Take 1 Cap by mouth every morning for 90 days. Earliest Fill Date: 10/27/15 Daily Max: 40 mg Will not take in am LORazepam (ATIVAN) 1 mg tablet Take 1 Tab by mouth 2 times daily as needed for Anxiety (PMS). Daily Max: 2 mg PRN Yes Toremifene 60 mg tablet Take 60 mg by mouth daily. Not taking in am traZODone (DESYREL) 50 mg tablet Take 50 mg by mouth at bedtime. Not taking zolpidem (AMBIEN) 5 mg tablet Take 1 Tab by mouth at bedtime as needed for Sleep. Daily Max: 5 mg HSyes - documented in this encounter H&P Notes Ailyn Krishnamurthy PA - 12/20/2015 1202 EDT Plastic Surgery Admission H&P Admit Date: 12/20/2015 Date of Service: 12/20/2015 PCP: Evert Perdomo Referring MD: Marzena Ordonez MD Referring Institution: Chief Complaint: No chief complaint on file. HPI: Jia Dow is a 45 y.o. female who presents with breast contour abnormality. Pt with no acute complaints or concerns today. Otherwise feeling well. No changes in medications. PMH PSH Past Medical History Diagnosis Date ??? Breast cancer 07/2011 Past Surgical History Procedure Laterality Date ??? Hand tendon surgery ??? Mastectomy ??? Breast reconstruction Social History Family history Social History Substance Use Topics ??? Smoking status: Never Smoker ??? Smokeless tobacco: Never Used ??? Alcohol use 1.2 oz/week 2 Standard drinks or equivalent per week Family History Problem Relation Age of Onset ??? Cancer Brother thyroid ??? Cancer Maternal Grandmother breast, postmenopausal Medications Current Facility-Administered Medications Medication Route Frequency ??? lactated ringers (LR) infusion intravenous CONTINUOUS Allergies No Known Allergies Review of Systems Pertinent items are noted in Subjective/HPI Objective/Physical Exam: VS: Visit Vitals ??? BP 107/73 (BP Cuff Location: Right arm, Patient Position: Semi fowlers) ??? Temp 36.3 ??C (97.3 ??F) (Tympanic) ??? Resp 14 ??? Ht 168.9 cm (66.5) ??? Wt 61.2 kg (135 lb) ??? LMP 11/27/2015 ??? SpO2 100% ??? BMI 21.46 kg/m2 Pain: Weight: Blood pressure 107/73, temperature 36.3 ??C (97.3 ??F), temperature source Tympanic, resp. rate 14, height 168.9 cm (66.5), weight 61.2 kg (135 lb), last menstrual period 11/27/2015, SpO2 100 %. Body mass index is 21.46 kg/(m^2). General Appearance: alert, cooperative, oriented Neck: supple, symmetrical, trachea midline Heart: regular rate and rhythm, S1, S2 normal, no murmur, click, rub or gallop Lungs: clear to auscultation bilaterally Extremities: extremities warm, atraumatic, no cyanosis or edema Skin: WNL; no rash, erythema or ecchymoses Lymphatic: No abnormally enlarged lymph nodes. Data Review: NA Other Studies: None Problems: (update problem list daily as appropriate) Patient Active Problem List Diagnosis Date Noted ??? Personal history of malignant neoplasm of breast 02/13/2015 Priority: Medium ??? Malignant neoplasm of breast 08/04/2011 ??? Episodic mood disorder 09/09/2010 ICD10 Update Auto Replacement ??? Depression 12/18/2009 ??? ADHD (attention deficit hyperactivity disorder) 12/18/2009 Assessment: Jia Dow is a 45 y.o. female with breast contour abnormality, s/p bilateral breast reconstruction. Pt wishes to receive liposuction and fat grafting to bilateral breasts. Plan: To OR as planned The patient is currently taking the following anticoagulents: none The plan for perioperative management is: NA DVT Prophylaxis: Seqential Compression Device TANIYA Ruiz 12/20/2015 12:02 documented in this encounter OR Notes OR Surgeon - Marzena Ordonez MD - 12/20/2015 1622 EDT OPERATIVE REPORT SERVICE DATE: 12/20/2015 PREOPERATIVE DIAGNOSIS: Personal history of breast cancer. POSTOPERATIVE DIAGNOSIS: Personal history of breast cancer. PROCEDURE: Fat grafting to bilateral reconstructed breasts. SURGEON: Marzena Ordonez MD RADIOLOGY RN: Ailyn Krishnamurthy PA-C, please note that no qualified resident was available to assist with this case. ANESTHESIA: General endotracheal. ESTIMATED BLOOD LOSS: Minimal. DRAINS: None. SPECIMENS: None. COMPLICATIONS: None. CONDITION: The patient at the end of the procedure was stable and transferred to the recovery room. INDICATIONS: Jia is a very pleasant 45-year-old female with a past history of breast cancer status post bilateral mastectomy and implant-based reconstruction with persistent contour abnormalities ofthe upper pole of the bilateral reconstructed breasts. She presents today for fat grafting to improve the upper pole hollowing. The risks, benefits and alternatives of the procedure, which included but were not limited to bleeding, infection, pain, scarring, persistent contour abnormality and incomplete correction of the deformity, were first explained to the patient and informed consent was obtained. NARRATIVE: The patient was then marked in the standing position in the preoperative holding area to identify the areas of hollowing around the implants. She was then brought into the operating room andplaced in supine position on the operating room table. Venodyne boots were placed on bilateral lowerextremities. Kefzol was infused intravenously prior to the start of the case. General anesthesia wasinduced, and the patient was intubated. The patient's chest, abdomen and thighs were first prepped and draped in the typical sterile fashion. Stab incisions were first made in the bilateral flanks, umbi lical area and medial thighs with a 15 blade. Tumescent solution was then infused in each of the areas for a total of 500 mL of tumescent. Sufficient time was then allowed for the tumescent to take effect. Standard liposuction was then performed in the bilateral flanks, infraumbilical region of the abdomen and inner thighs with a 2mm cannula. In the area of the thighs, care was taken not to violate the femoral triangle. A total of 150 mL of lipoaspirate was obtained. The lipoaspirate was then transferred to syringes and placed in the centrifuge. The fat was then obtained for injection. Stab incisions with a 15 blade were then made in the upper pole of the bilateral breasts. A total of 57 mL of fatwas injected around the upper pole of the bilateral reconstructed breasts in addition to the upper lateral area just inferior to the pectoralis major muscle with Arora cannulas. This appeared to significantly improve the contour. All incisions were then approximated with 5-0 fast gut interrupted sutures. The skin was cleaned and dried and Band-Aids were placed on the fat injection sites. Sterile dressings were applied to the liposuction incisions. An abdominal binder was placed. The patient tolerated the procedure well. She was awakened from anesthesia and transferred to the recovery room in stable condition. I attest that I was present and scrubbed for the entirety of this operation. The sponge and instrument counts were correct at the completion of the surgery. Unless otherwise noted, there were no complications, no blood loss, no cultures obtained, no specimens removed, and no drains retained. Marzena Ordonez MD 02 53 PM / Marzena Ordonez MD mn Confirmation: [id number] Dictation ID: [id number] documented in this encounter Miscellaneous Notes Anesthesia Post-Eval - OberGordo gardiner - 12/20/2015 1619 EDT Post Anesthesia Evaluation Note Date of Service: 12/20/2015 Jia Dow, a 45 y.o. year old female has received General Anesthesia today. She has been evaluated, assessed and discharged from anesthesia care with stable cardiorespiratory function and alert mental status. The last set of recorded vital signs and pain rating were reviewed: Temp: 36 ??C (96.8 ??F), Heart Rate: 60 BPM, BP: 102/51, Resp: 22, SpO2: 100 %,Numeric Pain Level (Scale 1-10): 2 Jia Dow participated in this evaluation unless otherwise noted. Her pain, nausea and vomiting have been managed and her body temperature and fluid balance have been restored. Additional monitoring and assessment needs have been addressed. If present, any postoperative events are documented below. Gordo Anne MD 12/20/2015 16:19 rief Op Note - Ailyn Krishnamurthy PA - 12/20/2015 1447 EDT Brief Op Note Date of Surgery: 12/20/2015 Surgeon: MD José Luis, FACS Assistants: TANIYA Ruiz Pre-Op Diagnosis: Breast Reconstruction/Fat Grafting Post-Op Diagnosis: SAME Procedure(s): Liopsuction of bilateral flank, medial thigh, and abdomen. Fat grafting, bilateral; superior pole of breast and axillae. Findings: As anticipated. See attending dictation for complete operative details. Anesthesia Type: General Estimated Blood Loss: Unless otherwise noted, there was no blood loss, specimens removed, cultures obtained, or drains retained. The estimated blood loss was Minimal Fluids: Jia Dow received 700mL of fluid replacement. Urine Output: not recorded Specimens/Cultures: None Drains/Packs: None Complications: None Disposition and Condition: Jia Dow was sent to PACU in Good condition. TANIYA Ruiz 12/20/2015 14:47 CPT: [ ] documented in this encounter Plan of Treatment Upcoming Encounters Date Type Specialty Care Team Description 12/16/2021 Appointment Infusion Therapy 04/15/2022 Office Visit Hematology and Oncology Poppy Felton PAChuyC [address] [facility], [facility] [address] [place], [place] [phone] (Larissa felder) 05/30/2022 Office Visit Surgical Oncology Asa Cameron MD [address] [facility], [facility] [address] [place], [place] [phone] (Larissa felder) Scheduled Referrals Name Type Priority Associated Order Schedule Diagnoses PROVIDER FOLLOW-UP Outpatient Referral Routine Or dered: INSTRUCTIONS 12/20/2015 PROVIDER FOLLOW-UP Outpatient Referral Routine Or dered: INSTRUCTIONS 12/20/2015 documented as of this encounter Procedures Procedure Name Priority Date/Time Associated Diagnosis Comme nts ECG REPORT - SCANNED 12/25/2015 9:52 EDT documented in this encounter Visit Diagnoses Not on filedocumented in this encounter Administered Medications Inactive Administered Medications - up to 3 most recent administrations Medication Order MAR Action Action Date Dose Rate Site atropine 0.1 mg/mL syringe 0.5 mg 0.5 mg, intravenous, PRN, Starting on Th u 12/20/15 at 1452, Until Luz 12/20/15 at 1844, Symptomatic HR < 50, Routine, Recovery (only) ceFAZolin (ANCEF) syringe 2 g Given by Other 12/20/2015 12:42 EDT 2 g 2 g, intravenous, Administer over 10 Minutes, PRE-OP ONCE, 1 dose, On Luz 12/20/15 at 1230, Routine diphenhydrAMINE (BENADRYL) injection 6.2 5 mg 6.25 mg, intravenous, PRN, 2 doses, Starting on Luz at 1452, Until Luz 12/20/15 at 1844, nausea, Routine, Recovery (only) fentaNYL citrate (PF) 50 mcg/mL injectio n 25-100 mcg 25-100 mcg, intravenous, EVERY 5 MIN PRN , Starting on Luz 12/20/15 at 1452, Until Luz 12/20/15 at 1844, Pain, Routine, Recovery (only) lactated ringers (LR) infusion New Bag 12/20/2015 11:38 EDT 25 mL/hr at 25 mL/hr, intravenous, CONTINUOUS, Starting on Luz 12/20/15 at 1115, Until Luz 12/20/15 at 1844, Routine, Pre Op Day of Surgery lactated ringers (LR) infusion at 75 mL/hr, intravenous, CONTINUOUS, St arting on Luz 12/20/15 at 1515, Until Luz 12/20/15 at 1844, Routine, Recovery (only) meperidine (PF) (DEMEROL) 25 mg/0.5 mL i njection 12.5 mg 12.5 mg, intravenous, PRN, 1 dose, Starting on Luz at 1452, Until Luz 12/20/15 at 1844, Other, shivering, Routine, Recovery (only) metoCLOPramide (REGLAN) injection 10 mg 10 mg, intravenous, PRN, 1 dose, Starting on Luz 12/19 at 1452, Until Luz 12/20/15 at 1844, Nausea, Routine, Recovery (only) midazolam (PF) (VERSED) 1 mg/mL injectio n 1 mg 1 mg, intravenous, EVERY 5 MIN PRN, 2 doses, Starting on Luz 12/20/15 at 1452, Until Luz 12/20/15 at 1844, Anxiety, Routine, Recovery (only) naloxone (NARCAN) injection 0.2 mg 0.2 mg, intravenous, PRN, Starting on Th u 12/20/15 at 1452, Until Luz 12/20/15 at 1844, Opioid Reversal, Routine, Recovery (only) ondansetron (PF) (ZOFRAN) injection 2 mg 2 mg, intravenous, PRN, 1 dose, Starting on Luz at 1452, Until Luz 12/20/15 at 1844, Nausea, Vomiting, Routine, Recovery (only) oxyCODONE (ROXICODONE) immediate release tablet 5 mg 5 mg, oral, PRN, 2 doses, Starting on Th u 12/20/15 at 1452, Until Luz 12/20/15 at 1844, Pain, Routine, Recovery (only) traMADol (ULTRAM) tablet 50 mg 50 mg, oral, EVERY 6 HOURS PRN, Starting on Luz at 1507, Until Luz 12/20/15 at 1844, Pain, Routine, Recovery (only) documented in this encounter Discontinued Medications Medication Sig Discontinue Reason Start Date End Date ibuprofen (MOTRIN) 600 mg Take 1 Tab by mouth 10/04/19 15 12/20/2015 tablet every 6 hours as needed for Pain Toremifene 60 mg Take 60 mg by mouth 11/15/201511/24 tabletIndications: daily. Malignant neoplasm of female breast, unspecified laterality, unspecified site of breast documented as of this encounter Historical Medications This list may reflect changes made after this encounter. Medication Sig Dispensed Refills Start Date End Date traZODone (DESYREL) 50 Take 50 mg by mouth 0 03/12/2016 mg tablet at bedtime. Reported on 01/21/2016 added in this encounter Active and Recently Administered Medications Times are shown in EDT. Scheduled Medication Order 12/18/2015 12/19/2015 12/20/2015 ceFAZolin (ANCEF) syringe 2 g (COMPLETED) 1242 (Given by Other - Provider: Martina Miller RN - Comment: in OR by anesthesia staff) 2 g, intravenous, Administer over 10 Min utes, PRE-OP ONCE, 1 dose, Luz 12/20/15 at 1230, Routine Continuous Medication Order 12/18/2015 12/19/2015 12/20/2015 lactated ringers (LR) infusion 1 138 (New Bag - Provider: Leesa Hayes RN) at 25 mL/hr, intravenous, CONTINUOUS, St arting Luz 12/20/15 at 1115, Until Luz 12/20/15 at 1844, Routine lactated ringers (LR) infusion 1 515 (Canceled Entry - Provider: Batch Job User Admin - Comment: Automatically canceled at discontinue of medication order) at 75 mL/hr, intravenous, CONTINUOUS, St arting Luz 12/20/15 at 1515, Until Luz 12/20/15 at 1844, Routine PRN Medication Order 12/18/2015 12/19/2015 12/20/2015 atropine 0.1 mg/mL syringe 0.5 mg 0.5 mg, intravenous, PRN, Starting Luz 1 at 1452, Until Luz 12/20/15 at 1844, Symptomatic HR < 50, Routine diphenhydrAMINE (BENADRYL) injection 6.25 mg 6.25 mg, intravenous, PRN, 2 doses, Star ting Luz 12/20/15 at 1452, Until Luz 12/20/15 at 1844, nausea, Routine fentaNYL citrate (PF) 50 mcg/mL injection 25-100 mcg 25-100 mcg, intravenous, EVERY 5 MIN PRN , Starting Luz 12/20/15 at 1452, Until Luz 12/20/15 at 1844, Pain, Routine meperidine (PF) (DEMEROL) 25 mg/0.5 mL injection 12.5 mg 12.5 mg, intravenous, PRN, 1 dose, Start ing Luz 12/20/15 at 1452, Until Luz 12/20/15 at 1844, Other, shivering, Routine metoCLOPramide (REGLAN) injection 10 mg 10 mg, intravenous, PRN, 1 dose, Startin g Luz 12/20/15 at 1452, Until Luz 12/20/15 at 1844, Nausea, Routine midazolam (PF) (VERSED) 1 mg/mL injection 1 mg 1 mg, intravenous, EVERY 5 MIN PRN, 2 do ses, Starting Luz 12/20/15 at 1452, Until Luz 12/20/15 at 1844, Anxiety, Routine naloxone (NARCAN) injection 0.2 mg 0.2 mg, intravenous, PRN, Starting Luz 1 at 1452, Until Luz 12/20/15 at 1844, Opioid Reversal, Routine ondansetron (PF) (ZOFRAN) injection 2 mg 2 mg, intravenous, PRN, 1 dose, Starting Luz 12/20/15 at 1452, Until Luz 12/20/15 at 1844, Nausea, Vomiting, Routine oxyCODONE (ROXICODONE) immediate release tablet 5 mg 5 mg, oral, PRN, 2 doses, Starting Luz 1 at 1452, Until Luz 12/20/15 at 1844, Pain, Routine traMADol (ULTRAM) tablet 50 mg 50 mg, oral, EVERY 6 HOURS PRN, Starting Luz 12/20/15 at 1507, Until Luz 12/20/15 at 1844, Pain, Routine documented in this encounter Orders Medications Ordered That Might Not Have Count Last Ord ered Date First Ordered Date Been Administered atropine 0.1 mg/mL syringe 0.5 mg 1 12/20/2015 diphenhydrAMINE (BENADRYL) injection 6.25 1 2015 mg fentaNYL citrate (PF) 50 mcg/mL injection 1 2015 25-100 mcg lactated ringers (LR) infusion 1 12/20/2015 meperidine (PF) (DEMEROL) 25 mg/0.5 mL 1 6 injection 12.5 mg metoCLOPramide (REGLAN) injection 10 mg 1 12/20/19 16 midazolam (PF) (VERSED) 1 mg/mL injection 1 2015 1 mg naloxone (NARCAN) injection 0.2 mg 1 12/20/2015 ondansetron (PF) (ZOFRAN) injection 2 mg 1 016 oxyCODONE (ROXICODONE) immediate release 1 016 tablet 5 mg traMADol (ULTRAM) tablet 50 mg 1 12/20/2015 Procedures Count Last Ordered Date First Ordered Date ECG REPORT - SCANNED 1 12/25/2015 Diet Count Last Ordered Date First Ordered Date DISCHARGE DIET 1 12/20/2015 Nursing Count Last Ordered Date First Ordered Date ACTIVITY INSTRUCTIONS 1 12/20/[address] SEQUENTIAL COMPRESSION DEVICE 1 12/20/2015 WOUND CARE INSTRUCTIONS 1 12/20/2015 Transfer Count Last Ordered Date First Ordered Date NOTIFY PPS PACU PATIENT DISCHARGE 2 12/20/2015 Discharge Count Last Ordered Date First Ordered Date DISCHARGE PATIENT 1 12/20/2015 documented in this encounter Care Teams Triage Technician Relationship Specialty Start Date End Date Evert Perdomo MD PCP - General 10/13/08 05/13/[address] [place] [id number] documented as of this encounter
--- OUTSIDE RECORDS SUMMARY | 2021-11-29 00:28 | XMS_ITS | Encounter Summary ---
:1970 Author Organization [facility] Address [address] [place] [address] Care Team Providers Name Role Phone Evert Perdomo MD Primary Care Provider Reason for Visit Reason Onset Date Comments Medications Refill 05/09/2016 Encounter Details Date Type Department Care Team Description 05/09/2016 Refill [facility] Adult Evert Perdomo MD Medications Refill Primary Care - [address] [phone] (Wo rk) Social History Tobacco Use Types [...] TAKE 1 TABLET AT 90 Tab 0 201606/19/2016 mg tablet BEDTIME documented in this encounter Miscellaneous Notes Telephone Encounter - Lucero Ly RN - 05/09/2016 1532 EDT Last Refill Date: 03-12-16 Last Visit Date with Ordering Provider: 03-12-16 Next Visit Date as it relates to the requested medication: No. Last Related Labs Date: NA Lucero Ly RN 05/09/2016 15:32 elephone Encounter - Cristiane Bautista - 05/09/2016 1458 EDT Medication(s) Requested: Trazodone, pt called, she says she has always taken 100 mg, she is not surewhy 50 mg was Rx'd last time, pt says she has been taking two of the 50 mg HS Preferred Pharmacy: [facility] Is patient out of medication? Yes, explained 72 hour business day notice for future refills. Cristiane Bautista 05/09/2016 14:58 documented in this encounter Plan of Treatment Upcoming Encounters Date Type Specialty Care Team Description 12/16/2021 Appointment Infusion Therapy 04/15/2022 Office Visit Hematology and Oncology Poppy Felton PA-C 111 [facility], [facility], [facility] [address] [place], [place] [phone] (Wo rk) 05/30/2022 Office Visit Surgical Oncology Asa Cameron MD 111 [facility], [facility], [address] [place], [place] [phone] (Wo rk) documented as of this encounter Visit Diagnoses Not on filedocumented in this encounter Discontinued Medications Medication Sig Discontinue Reason Start Date End Date traZODone (DESYREL) 50 Take 1 Tab by mouth 03/12/2016 05/09/2016 mg tablet at bedtime. Reported on 01/21/2016 documented as of this encounter Care Teams Information Security Specialist Relationship Specialty Start Date End Date Evert Perdomo MD PCP - General 10/13/08 05/13/[address] [address] documented as of this encounter
--- OUTSIDE RECORDS SUMMARY | 2021-11-29 00:28 | XMS_ITS | Encounter Summary ---
:1970 Author Organization [facility] Address [address] [place] [address] Care Team Providers Name Role Phone Philip Schulz MD Primary Care Provider Reason for Visit Reason Onset Date Comments Palpitations 07/25/2016 Encounter Details Date Type Department Care Team Description 07/25/2016 Telephone [facility] Adult Philip Hopkins MD Palpitations Primary Care - [address] [phone] [place] [address] [phone] Social History Tobacco Use Types Packs/Day Years [...] Telephone Encounter - Khadra Vaughn RN - 07/25/2016 1618 EDT Pt states this has been going on for over a month but has intensified more recently. She denies any shortness of breath, chest pain, lightheadedness or dizziness. Pt states she is comfortable waiting for her scheduled visit on 08.04.16 to discuss this with her PCP. Patient was instructed to call back if she develops any of the symptoms discussed above prior to heroffice visit. The patient indicates understanding of these issues and agrees with the plan. elephone Encounter - Mamta Mayorga - 07/25/2016 1607 EDT Reason for Call: Palpitations Summary/Symptoms: Palpitations, does not get dizzy , patient has appt scheduled for 08/04/16 for med management Onset and Duration? 1 month, patient had appt schedule but [place] Appointment Offered? Yes For med management Mamta Mayorga 07/25/2016 16:07 documented in this encounter Plan of Treatment Upcoming Encounters Date Type Specialty Care Team Description 12/16/2021 Appointment Infusion Therapy 04/15/2022 Office Visit Hematology and Oncology Poppy Felton PA-C 111 [facility], [facility] 2 [place], [place] [phone] (Wo rk) 05/30/2022 Office Visit Surgical Oncology Asa Cameron MD 111 [facility] Level [address] [place], [place] [phone] (Wo rk) documented as of this encounter Visit Diagnoses Not on filedocumented in this encounter Care Teams Roller Inspector And Mender Relationship Specialty Start Date End Date Philip Schulz MD PCP - General 05/14/16 12/06/[address] [place] [address] [place] [address] documented as of this encounter
--- OUTSIDE RECORDS SUMMARY | 2021-11-29 00:28 | XMS_ITS | Encounter Summary ---
:1970 Author Organization [facility] Address [address] [place] [address] Care Team Providers Name Role Phone Evert Perdomo MD Primary Care Provider Philip Schulz MD Primary Care Provider Reason for Visit Reason Onset Date Comments Appointment Related 03/11/2016 Mar 12 Encounter Details Date Type Department Care Team Description 03/11/2016 Telephone [facility] Jessi Pleitez MD PhD Appointment Related Hematology & Oncology 111 [facility] (Mar 12) - [facility], [address] [place], [place] [id number] [place] [address] [phone] (Wo rk) Social History Tobacco Use [...] Notes Telephone Encounter - Lianna Carroll - 03/11/2016 1430 EST Scheduled apt with Jia to 03/19 at 830am. Patient agreed and is aware elephone Encounter - Audelia Heaton V. - 03/11/2016 1048 EST Reason for Call: Appointment Related (Mar 12) Summary/Symptoms: Please call patient to reschedule her Mar 12 appointment due to the weather forecast Audelia Heaton 03/11/2016 10:48 documented in this encounter Plan of Treatment Upcoming Encounters Date Type Specialty Care Team Description 12/16/2021 Appointment Infusion Therapy 04/15/2022 Office Visit Hematology and Oncology Poppy Felton PA-C [address] [phone] (Wo rk) 05/30/2022 Office Visit Surgical Oncology Asa Cameron MD [address] [phone] (Wo rk) documented as of this encounter Visit Diagnoses Not on filedocumented in this encounter Care Teams E/M Engineer Relationship Specialty Start Date End Date Evert Perdomo MD PCP - General 10/13/08 05/13/16 [address] [place] [address] Philip Schulz MD PCP - General 05/14/16 12/06/[address] [place] [address] documented as of this encounter
--- OUTSIDE RECORDS SUMMARY | 2021-11-29 00:28 | XMS_ITS | Encounter Summary ---
:1970 Author Organization [facility] Address [address] [place] [address] Care Team Providers Name Role Phone Philip Schulz MD Primary Care Provider Reason for Visit Reason Onset Date Comments Appointment Related 01/09/2017 Dr Cameron 01/12/17 Encounter Details Date Type Department Care Team Description 01/09/2017 Telephone [facility] Asa Cameron MD Appointment Related MEDICINE [address] [place] [address] (Dr Cameron 01/12/17) [address] [place] [phone] [place] [address], [facility] [phone] (Wo rk) Social History Tobacco Use [...] this encounter Miscellaneous Notes Telephone Encounter - Nelly Floyd - 01/12/2017 1001 EST Left message for patient to call back in regards to rescheduling. elephone Encounter - Rupa Irwin - 01/09/2017 1044 EST Reason for Call: Appointment Related (Dr Cameron 01/12/17) Summary/Symptoms: Patient needs to cancel and re-schedule appt with Dr Cameron, will be out of town. Please call back. Rupa Irwin 01/09/2017 10:44 documented in this encounter Plan of Treatment Upcoming Encounters Date Type Specialty Care Team Description 12/16/2021 Appointment Infusion Therapy 04/15/2022 Office Visit Hematology and Oncology Poppy Felton, PAChuyC [address] [phone] (Wo rk) 05/30/2022 Office Visit Surgical Oncology Asa Cameron MD [address] [phone] (Wo rk) documented as of this encounter Visit Diagnoses Not on filedocumented in this encounter Care Teams Seamer Relationship Specialty Start Date End Date Philip Schulz MD PCP - General 05/14/16 12/06/17 [facility] [place] [address] documented as of this encounter
--- OUTSIDE RECORDS SUMMARY | 2021-11-29 00:29 | XMS_ITS | Encounter Summary ---
:1970 Author Organization [facility] Address [address] [place] [address] Care Team Providers Name Role Phone Evert Perdomo MD Primary Care Provider Reason for Visit Reason Onset Date Comments Medications Refill 03/13/2015 Encounter Details Date Type Department Care Team Description 03/13/2015 Refill [facility] Adult Evert Perdomo MD Medications Refill Primary Care - [address] [address] [phone] (Wo rk) Social History Tobacco Use Types [...] a physical, mental, or emotional condition, No 02/12/2015 does this person have difficulty doing errands alone such as visiting a doctor's office or shopping? Cognitive Status Response Date of Assessment Because of a physical, mental, or emotional condition, No 02/12/2015 does this person have serious difficulty concentrating, remembering, or making decisions? documented as of this encounter Ordered Prescriptions Prescription Sig Dispensed Refills Start Date End Date tamoxifen (NOLVADEX) 20 mg Take 1 Tab by mouth 90 Tab 2 03/13/2015 11/15/2015 tablet daily documented in this encounter Miscellaneous Notes Telephone Encounter - Cristiane Bautista - 03/13/2015 1602 EST Medication(s) requested: Tamoxifen, 20 mg, 1 daily, #90, last refill 11.15.14 Is the pt out of the medication?: See request for local fill Pharmacy: [facility] - please also see request for local fill as well Last OV w/PCP: 01.02.15 Next OV w/PCP: Visit date not found Cristiane Bautista 03/13/2015 15:57 documented in this encounter Plan of Treatment Upcoming Encounters Date Type Specialty Care Team Description 12/16/2021 Appointment Infusion Therapy 04/15/2022 Office Visit Hematology and Oncology Poppy Felton PAChuyC [address] [phone] (Wo rk) 05/30/2022 Office Visit Surgical Oncology Asa Cameron MD [address] [place] [address] [phone] (Wo rk) documented as of this encounter Visit Diagnoses Not on filedocumented in this encounter Care Teams Dry Plasterer Relationship Specialty Start Date End Date Evert Perdomo MD PCP - General 10/13/08 05/13/[address] [place] [phone] documented as of this encounter
--- OUTSIDE RECORDS SUMMARY | 2021-11-29 00:29 | XMS_ITS | Encounter Summary ---
:1970 Author Organization [facility] Address [address] [place] [address] Care Team Providers Name Role Phone Evert Perdomo MD Primary Care Provider Reason for Visit Reason Comments Medication Management discuss meds Encounter Details Date Type Department Care Team Description 12/11/2015 Office Visit [facility] Evert Perdomo Personal history of malignant neoplasm of breast (Primary Dx); Adult Primary Care - MD Teo Depression, unspecified depression type; [place] [address] Attention deficit hyperactivity disorder (ADHD), unspecified ADHD type; [address] Insomnia, unspecified type [place], [place] [phone] [place] [address] Social History Tobacco Use Types Packs/Day Years [...] Sign Reading Time Taken Comments Blood Pressure 106/72 12/11/2015 1517 EDT Pulse 64 12/11/2015 1517 EDT Temperature 37 ??C (98.6 ??F) 12/11/2015 1517 EDT Respiratory Rate 12 12/11/2015 1517 EDT Oxygen Saturation - - Inhaled Oxygen Concentration - - Weight 63 kg (139 lb) 12/11/2015 1517 EDT Height - - Body Mass Index 22.47 10/31/2015 1311 EDT documented in this encounter Functional Status [...] Sig Dispensed Refills Start Date End Date zolpidem (AMBIEN) 5 mg Take 1 Tab by mouth 30 Tab 2 11/2302/11/2016 tablet at bedtime as needed for Sleep. Daily Max: 5 mg documented in this encounter Progress Notes Evert Perdomo MD - 12/11/2015 1530 EDT PROBLEM: Depression and anxiety. PROBLEM: Insomnia. PROBLEM: ADHD. PROBLEM: Breast cancer. SUBJECTIVE: The patient is here to discuss her medications. She has had very poor tolerance of tamoxifen and now has the opportunity to spend the next year on toremifene. In making that change, she would need to discontinue trazodone, which she uses for sleep. She continues on Vyvanse, Wellbutrin-SR, and occasional lorazepam for panic symptoms, and these all seem to be continuing to go well. She has a number of life stresses currently with her 14-year-old daughter and father. She is going to be concerned about sleep once she makes the change from tamoxifen to toremifene. She is currently on a 1-month drug holiday. She has tried melatonin, but concurrently with lower doses of trazodone and never alone. From a review of systems standpoint, she otherwise is feeling well without major concerns. OBJECTIVE: Seated in no distress. Temperature 98.6, pulse 64, regular, blood pressure 106/72. She isable to provide a very coherent history and be focused in conversation, with no major evidence of depressed affect, mostly concerns. ASSESSMENT: 1. Depression/anxiety -- seems to be managed as well as possible with Wellbutrin-SR and p.r.n. lorazepam. I doubt the contribution of trazodone to this is significant. 2. Attention deficit hyperactivity disorder -- doing well on current dose of Vyvanse. 3. Insomnia -- needs to have a plan in place for the possibility she will sleep poorly off of trazodone. PLAN: A1. Return as needed or call. B1. Continue Wellbutrin-XL150 mg daily. B2. Continue Vyvanse 40 mg daily. B3. Continue p.r.n. lorazepam. B4. Discontinue trazodone. B5. Trial of melatonin alone for several days. B6. Assuming lack of success in the above, will transition to Ambien 5 mg at bedtime. documented in this encounter Plan of Treatment Upcoming Encounters Date Type Specialty Care Team Description 12/16/2021 Appointment Infusion Therapy 04/15/2022 Office Visit Hematology and Oncology Poppy Felton PA-C [address] [phone] (Wo bradford) 05/30/2022 Office Visit Surgical Oncology Aas Cameron MD [address] [phone] (Wo rk) documented as of this encounter Visit Diagnoses Diagnosis Personal history of malignant neoplasm o f breast - Primary Depression, unspecified depression type Attention deficit hyperactivity disorder (ADHD), unspecified ADHD type Insomnia, unspecified type documented in this encounter Discontinued Medications Medication Sig Discontinue Reason Start Date End Date TRAZODONE HCL (TRAZODONE Take by mouth. 1 ORAL) documented as of this encounter Care Teams Hang Gliding Instructor Relationship Specialty Start Date End Date Evert Perdomo MD PCP - General 10/13/08 05/13/[address] [place] [address] documented as of this encounter
--- OUTSIDE RECORDS SUMMARY | 2021-11-29 00:29 | XMS_ITS | Encounter Summary ---
:1970 Author Organization [facility] Address [address] [place] [address] Care Team Providers Name Role Phone Evert Perdomo MD Primary Care Provider Reason for Visit Reason Onset Date Comments Medications Refill 10/11/2014 Encounter Details Date Type Department Care Team Description 10/11/2014 Refill [facility] Adult Evert Perdomo MD Medications Refill Primary Care - [address] [address] [phone] (Wo rk) Social History Tobacco Use Types Packs/Day Years Used Date Never Smoker Smokeless Tobacco: Never Used Alcohol Use Standard Drinks/Week Comments No 0 (1 standard drink = 0.6 oz pure alcoho l) rare Alcohol Habits Answer Date Recorded How often [...] documented as of this encounter Functional Status Cognitive Status Response Date of Assessment Because of a physical, mental, or emotional condition, do Ye s 08/15/2011 you have serious difficulty concentrating, remembering, or making decisions? (5 years old or older) documented as of this encounter Ordered Prescriptions Prescription Sig Dispensed Refills Start Date End Date tamoxifen (NOLVADEX) 20 mg Take 1 Tab by 90 Tab 3 201411/15/2014 tablet mouth daily lisdexamfetamine (VYVANSE) Take 1 Cap by 28 Cap 0 201411/06/2014 40 mg capsuleIndications: mouth every Attention deficit morning for 28 hyperactivity disorder days Earliest Fill (ADHD), unspecified ADHD Date: 10/11/14 type Daily Max: 40 mg tamoxifen (NOLVADEX) 20 mg Take 1 Tab by 30 Tab 0 201411/14/2014 tablet mouth daily documented in this encounter Miscellaneous Notes Telephone Encounter - Audelia Martínez - 10/17/2014 0833 EDT 90 day Tamoxifen script faxed to [facility]. Vyvanse script in drawer elephone Encounter - Audelia Martínez - 10/11/2014 1146 EDT Medication(s) requested: 1. Vyvanse 40mg Patient spoke with Dr. Perdomo about incrementally increasing the dosage. Take 1 cap by mouth every morning. 2. Tamoxifen 20 mg, Take 1 tab by mouth daily. Patient has changed insurances and would like a 30 day supply to a local pharmacy [facility]. Last [facility]ill 08/14/14 Is the pt out of the medication?: No Patient will be out of the Tamoxifen on Thursday Pharmacy: [facility] for the Tamoxifen and patient will pickling drum operator Vyvanse. Last OV w/PCP: 08/28/14 Next OV w/PCP: Visit date not found Audelia Martínez 10/11/2014 11:46 documented in this encounter Plan of Treatment Upcoming Encounters Date Type Specialty Care Team Description 12/16/2021 Appointment Infusion Therapy 04/15/2022 Office Visit Hematology and Oncology Poppy Felton PA-C 111 [facility] 2 [place], [place] [phone] (Wo rk) 05/30/2022 Office Visit Surgical Oncology Asa Cameron MD 111 [facility] 2 [place], [place] [phone] (Wo rk) documented as of this encounter Visit Diagnoses Diagnosis Attention deficit hyperactivity disorder (ADHD), unspecified ADHD type - Primary documented in this encounter Discontinued Medications Medication Sig Discontinue Reason Start Date End Date tamoxifen (NOLVADEX) 20 Take 1 Tab by mouth Reorder 08/14/2014 10/11/2014 mg tablet daily Replacement prescription. lisdexamfetamine Take 1 Cap by mouth Reorder 08/28/201409/23 (VYVANSE) 40 mg every morning for capsuleIndications: 28 days Daily Max: Attention deficit 40 mg hyperactivity disorder (ADHD), unspecified ADHD type documented as of this encounter Care Teams Logistics Supply Officer Relationship Specialty Start Date End Date Evert Perdomo MD PCP - General 10/13/08 05/13/[address] [phone] documented as of this encounter
--- OUTSIDE RECORDS SUMMARY | 2021-11-29 00:29 | XMS_ITS | Encounter Summary ---
:1970 Author Organization [facility] Address [address] [place] [address] Care Team Providers Name Role Phone Evert Perdomo MD Primary Care Provider Reason for Referral Prior Authorization (Routine/Next Available) - Closed Specialty Diagnoses / Procedures Referred By Contact Refer red To Contact Diagnoses Malignant neoplasm of female breast, unspecified laterality, unspecified site of breast Jessi Pleitez MD PhD [address] [place] [address], [address] [place] [phone] Referral ID Status Reason Start Date Expiration Date Visits Requ ested Visits Authorized Closed Other 10/31/2015 1 0 Question Answer Medication to be Prior Authorized: lab test [facility] Precertification Request f or Medications 10/31/2015 URGENT: No Lab test Patient Name: Jia Dow Patient : [id number] Ordering MD: Pricilla Nurse: yoni Phone: [phone] Please Prior Auth Lab test Listed below: aguilar test ID: [id number], cytochrome p450 2D6 , comprehensive cascade blood CPT code: 90490 onsult (Routine/Next Available) - Specialty Report Received Specialty Diagnoses / Procedures Referred By Contact Refer red To Contact Plastic Surgery Diagnoses Malignant neoplasm of female breast, unspecified laterality, unspecified site of breast Jessi Pleitez MD PhD [facility] [address], [address] [place], [facility] 2 [place] [address] [place] Phone: [phone] Referral ID Status Reason Start Expiration Visits Visits Date Date Requested Authorized [id number] Specialty Specialty 10/31/2015 1 1 Report Services Received Required Question Answer Reason for Request: Pt w/ deficits after bilater a mastectomies, would like to consider plastic surgery Reason for Visit Reason Comments New Patient Visit Consult (Routine) - Closed Specialty Diagnoses / Referred By Contact Referred To Contact Procedures Hematology and Diagnoses Malignant neoplasm of breast (HCC) Jessi Pleitez MD PhD Jessi Pleitez MD PhD Oncology [address] [place] [address], [facility], [facility], [facility] 2 [place], [facility] 2 [place] [phone] Fax: Referral ID Status Reason Start Date Expiration Date Visits Requ ested Visits Authorized [id number] Closed 1 1 Encounter Details Date Type Department Care Team Description 10/31/2015 Office Visit [facility] Jessi Pleitez MD Malig nant neoplasm of Hematology & PhD female breast, Oncology - Main [address] [place] [address] [facility] [address] [place] [address], [facility] unspecified site of [address] 2 breast (Primary Dx) [phone] [place] [address] (Wo rk) Social History Tobacco [...] Sign Reading Time Taken Comments Blood Pressure 111/66 10/31/2015 1311 EDT Pulse 70 10/31/2015 1311 EDT Temperature 37.7 ??C (99.8 ??F) 10/31/2015 1311 EDT Respiratory Rate 16 10/31/2015 1311 EDT Oxygen Saturation 100% 10/31/2015 1311 EDT Inhaled Oxygen Concentration - - Weight 61.9 kg (136 lb 8 oz) 10/31/2015 1311 EDT Height 167.5 cm (5' 5.95) 10/31/2015 1311 EDT Body Mass Index 22.07 10/31/2015 1311 EDT documented in this encounter [...] encounter Progress Notes Jessi Pleitez MD - 10/31/2015 1301 EDT REASON FOR OFFICE VISIT: Re-establish care and discussion of side effects while receiving tamoxifenfor ER+ breast cancer. ?? PROBLEM LIST: ?? 1. Invasive adenocarcinoma of the right breast identified based palpable mass in June 2011. ?? a. Total mastectomy and prophylactic mastectomy performed 08/14/2011 with pathology revealing a 1.2 cm invasive ductal carcinoma of the right breast, well-differentiated, lymphovascular invasion identified on the core biopsy and by DFCI there was an area on the mastectomy specimen. 0/4 lymph nodes; ER+>90%, UT+ > 90%; HER-2 2+ by immunohistochemistry and negative by FISH. Oncotype DX score 20 (intermediate range). ?? b. Initiated tamoxifen 08/2011 ?? 2. Family history of breast cancer, genetic testing negative for BRCA mutation 3. Other chronic health problems include ADHD, depression and anxiety. ?? SUBJECTIVE: [facility] of antiestrogen receptor positive breast cancer. She moved to the [facility] approximately one year ago after spending a few years in [place]. She has continued to follow up with Dr. Cameron and saw him last January. She has continued on tamoxifen though she feels that tamoxifen is contributing to depression and an impaired sex drive. She also has some hot flashes and an uncomfortable vaginal discharge on tamoxifen. Because of the depression is back on Wellbutrin. Wellbutrin has worked well for depression in the past. Currently she is on Wellbutrin 150 mg daily. She knows that her depression will worsen as we move into [facility] and she would like to increase the Wellbutrin to 300 mg daily. She has not noticed any problems with lymphedema. She feels her range of motion is good. She had planned to get additional plastic surgery with Dr. Bautista but this is now been put on hold. She just had a gynecologic exam but is nothad I exams for quite some time. ROS: A 10 point review of systems was obtained. Other than described in the subjective she notes mild insomnia. Medications Prior to Today's Visit Medication Sig ??? buPROPion (WELLBUTRIN XL) 300 mg XL tablet Take 300 mg by mouth daily ??? ibuprofen (MOTRIN) 600 mg tablet Take 1 Tab by mouth every 6 hours as needed for Pain ??? lisdexamfetamine (VYVANSE) 40 mg capsule Take 1 Cap by mouth every morning for 90 days. EarliestFill Date: 10/27/15 Daily Max: 40 mg ??? LORazepam (ATIVAN) 1 mg tablet Take 1 Tab by mouth 2 times daily as needed for Anxiety (PMS). Daily Max: 2 mg ??? tamoxifen (NOLVADEX) 20 mg tablet Take 1 Tab by mouth daily ??? traZODone (DESYREL) 100 mg tablet TAKE 1 TABLET AT BEDTIME No facility-administered medications prior to visit. Social History Substance Use Topics ??? Smoking status: Never Smoker ??? Smokeless tobacco: Never Used ??? Alcohol use 1.2 oz/week 2 Standard drinks or equivalent per week Presents to clinic alone today. She is has 3 children. She continues to be very active. Objective: There were no vitals taken for this visit. Estimated body mass index is 22.18 kg/(m^2) as calculated from the following: Height as of 09/19/14: 167.6 cm (66). Weight as of 01/02/15: 62.3 kg (137 lb 6.4 oz). ECOG Performance Status: 0 General: Comfortable, cooperative and in no apparent distress HEENT: Pupils are equal, round, reactive to light; Extraocular muscles are intact; [place]ucosa is moist; no mucosal lesions are identified LYMPH: No cervical, supraclavicular lymphadenopathy LUNGS: Clear to auscultation bilaterally, resonant to percussion CARDIOVASCULAR: Regular, rate and rhythm; No murmurs, rubs or gallops BREAST: No skin changes, no axillary adenopathy appreciated, minimal cording. ABDOMEN: Soft, non-tender, non distended, no hepatosplenomegaly appreciated. EXTREMITIES: No clubbing, cyansis or edema; No calf tenderness NEURO: Alert and oriented x 3; Grossly neurologically intact ASSESSMENT: Ms Dow is a 42-year-old female with a [id number] invasive ductal carcinoma which was ERpositive, well-differentiated. Her Oncotype DX score was 20 and she did not receive chemotherapy. She initiated tamoxifen in August of 2011. Symptoms on tamoxifen include mild hot flashes but more importantly depression which she feels is interfering with her function. She is on Wellbutrin 150 mg daily and during the summer this helps control the depression. Wellbutrin interferes with tamoxifen metabolism. She would like to increase her dose of Wellbutrin to 300 mg daily. We will plan to obtain fifth 2 D6 testing as this may help us regarding dose of Wellbutrin that she should continue. Alternativelyshe could consider toremifene as TRAM then is not metabolized through the sixth 2 D6 system. If she proceeds with toremifene she would have to discontinue trazodone as the combination of the 2 is associated with QT prolongation. We would recommend that she discontinue tamoxifen for 4. If her symptoms of depression improved while remaining on the same dose of 12. Chin we would recommend that she consider toremifene. We discussed again that we would recommend at least 5 years of therapy and perhaps 10. She would complete 5 years of therapy next year. Hopefully by then we will have the breast cancer index available to help with recommendations regarding 5 versus 10 years of therapy. ?? PLAN: 1. For now continue tamoxifen 20 mg daily, 5 years of antiestrogen therapy would be completed in August 2016. 2. Arrange for CYP2D6 testing. 3. Continue followup with Dr Cameron. 4. Arrange for plastic surgery consultation 5. Return to clinic in 6 months. Jessi Pleitez MD 10/31/2015 13:01 documented in this encounter Plan of Treatment Upcoming Encounters Date Type Specialty Care Team Description 12/16/2021 Appointment Infusion Therapy 04/15/2022 Office Visit Hematology and Oncology Poppy Felton, PAChuyC [address] [phone] (Larissa felder) 05/30/2022 Office Visit Surgical Oncology Asa Cameron MD [address] [phone] (Larissa felder) Scheduled Referrals Name Type Priority Associated Order Schedule Diagnoses AMB CONS/FOLLOW UP Outpatient Referral Routine Malignant neopl asm Ordered: PLASTIC SURGERY of female breast, 016 unspecified laterality, unspecified site of breast AMB MEDICATION PRIOR Outpatient Referral Routine Malignant elio plasm Ordered: AUTHORIZATION of female breast, 6 unspecified laterality, unspecified site of breast documented as of this encounter Visit Diagnoses Diagnosis Malignant neoplasm of female breast, uns pecified laterality, unspecified site of breast - Primary documented in this encounter Care Teams Associate Financial Advisor Relationship Specialty Start Date End Date Evert Perdomo MD PCP - General 10/13/08 05/13/[address] [place] [phone] documented as of this encounter
--- OUTSIDE RECORDS SUMMARY | 2021-11-29 00:29 | XMS_ITS | Encounter Summary ---
:1970 Author Organization [facility] Address [address] [place] [address] Care Team Providers Name Role Phone Evert Perdomo MD Primary Care Provider Reason for Visit Reason Onset Date Comments Medications Refill 12/13/2014 Encounter Details Date Type Department Care Team Description 12/13/2014 Refill [facility] Adult Evert Perdomo MD Medications Refill Primary Care - [address] [phone] (Wo rk) Social History Tobacco Use Types [...] Take 1 Cap by 28 Cap 0 201401/02/2015 40 mg capsuleIndications: mouth every Attention deficit morning for 28 hyperactivity disorder days Earliest Fill (ADHD), unspecified ADHD Date: 12/13/14 type Daily Max: 40 mg documented in this encounter Miscellaneous Notes Telephone Encounter - Nito Holbrook - 12/18/2014 1433 EDT Script in drawer. elephone Encounter - Elyssa Pal - 12/13/2014 1345 EDT Medication(s) requested: lisdexamfetamine 40 mg capsule, take 1 cap daily, 28 days Is the pt out of the medication?: no Pharmacy: picker here Last refill date: 11.14.14 Last OV w/PCP: 08.28.14 Next OV w/PCP: 01/02/2015 Elyssa Pal 12/13/2014 13:45 documented in this encounter Plan of Treatment Upcoming Encounters Date Type Specialty Care Team Description 12/16/2021 Appointment Infusion Therapy 04/15/2022 Office Visit Hematology and Oncology Poppy Felton PA-C 111 [facility], [facility] 2 [place], [place] [phone] (Larissa felder) 05/30/2022 Office Visit Surgical Oncology Asa Cameron MD 111 [facility], [facility] 2 [place], [place] [phone] (Larissa felder) documented as of this encounter Visit Diagnoses Diagnosis Attention deficit hyperactivity disorder (ADHD), unspecified ADHD type - Primary documented in this encounter Discontinued Medications Medication Sig Discontinue Reason Start Date End Date lisdexamfetamine (VYVANSE) Take 1 Cap by Reorder 11/14/2014 12/13/2014 40 mg capsuleIndications: mouth every Attention deficit morning for 28 hyperactivity disorder days Earliest Fill (ADHD), unspecified ADHD Date: 11/14/14 type Daily Max: 40 mg documented as of this encounter Care Teams Fur Finisher Relationship Specialty Start Date End Date Evert Perdomo MD PCP - General 10/13/08 05/13/[address] [place] [address] documented as of this encounter
--- OUTSIDE RECORDS SUMMARY | 2021-11-29 00:29 | XMS_ITS | Encounter Summary ---
:1970 Author Organization [facility] Address [address] [place] [address] Care Team Providers Name Role Phone Eevrt Perdomo MD Primary Care Provider Reason for Visit Reason Onset Date Comments Medications Refill 07/13/2014 Encounter Details Date Type Department Care Team Description 07/13/2014 Telephone [facility] Adult Evert Perdomo Ala, Medications Refill Primary Care - Hallie ROA [address] [place] [address] [address] [place], [place] [address] (Wo rk) Social History [...] this encounter Miscellaneous Notes Telephone Encounter - Charlotte Lynne - 07/14/2014 1409 EDT Script for a 90 day supply mailed to [facility] elephone Encounter - Carey Tejada RN - 07/13/2014 1700 EDT Done in another encounter. elephone Encounter - Charlotte Lynne - 07/13/2014 1627 EDT Medication(s) requested: vyvanse 30 mg 1 po daily #90 Is the pt out of the medication?: No Pharmacy: [facility] mail order Last refill date: Last OV w/PCP: 02/22/14 Next OV w/PCP: Visit date not found Charlotte Lynne 07/13/2014 16:27 documented in this encounter Plan of Treatment Upcoming Encounters Date Type Specialty Care Team Description 12/16/2021 Appointment Infusion Therapy 04/15/2022 Office Visit Hematology and Oncology Poppy Felton, PACl 111 [facility], [facility] 2 [place], [place] [phone] (Wo rk) 05/30/2022 Office Visit Surgical Oncology Asa Cameron MD 111 [facility] 2 [place], [place] [phone] (Wo rk) documented as of this encounter Visit Diagnoses Not on filedocumented in this encounter Care Teams Pin Attacher Relationship Specialty Start Date End Date Evert Perdomo MD PCP - General 10/13/08 05/13/[address] [address] documented as of this encounter
--- OUTSIDE RECORDS SUMMARY | 2021-11-29 00:29 | XMS_ITS | Encounter Summary ---
:1970 Author Organization [facility] Address [address] [place] [address] Care Team Providers Name Role Phone Evert Perdomo MD Primary Care Provider Reason for Visit Reason Comments Nipple Tattoo bilateral Encounter Details Date Type Department Care Team Description 02/09/2015 Office Visit [facility] Rodolfo S/P derik st reconstruction, bilateral (Primary Dx); Plastic, Reconstructive Jazmine Sandra PA-C Malignant neoplasm of right female breas t, unspecified site of breast & Cosmetic Surgery - [address] [phone] [place] [address] Social History Tobacco Use Types Packs/Day Years [...] or older) documented as of this encounter Patient Instructions Patient InstructionsJazmine Reynolds PA - 02/09/2015 11:44 EST Instructions for the Care of Your Areolar Tattoo ?? Wait for about 24hrs before you shower ?? The first time you shower, you may notice some pigment washing off; this is normal. ?? Apply bacitracin and telfa pad ?? Change 1-2x/day until no longer weepy (generally 3-4 days) ?? Return to the office for follow-up in 1 month. documented in this encounter Progress Notes Jazmine Reynolds PA - 02/09/2015 1147 EST Jia returns. She had bilateral tissue [facility] specialist breast reconstruction in 2011. She then moved to [place] and had an implant exchange there. She has this done a second time for improvement in her appearance. She was fat grafted in the second surgery. In November 2013 she had a nipple reconstruction using gortex and then an areolar tattoo which has faded significantly. She presents today for repeat areolar tattooing. Anesthetized with 1% lidocaine with epinephrine. The previous tattoos were darkened over the area of about 38 mm areola. Mix of pigments applied with new sterile needle. Dressed with bacitracin, telfa. She tolerated the procedure well. RTC in 4-6 weeks for final photographs and last follow up visit. documented in this encounter Plan of Treatment Upcoming Encounters Date Type Specialty Care Team Description 12/16/2021 Appointment Infusion Therapy 04/15/2022 Office Visit Hematology and Oncology Poppy Felton PA-C 111 [facility], [facility] 2 [place], [place] [phone] (Wo rk) 05/30/2022 Office Visit Surgical Oncology Asa Cameron MD 111 [facility], [facility] 2 [place] [phone] (Wo rk) documented as of this encounter Visit Diagnoses Diagnosis S/P breast reconstruction, bilateral - P rimary Breast replaced by other means Malignant neoplasm of right female breas t, unspecified site of breast documented in this encounter Care Teams Campaign Manager Relationship Specialty Start Date End Date Evert Perdomo MD PCP - General 10/13/08 05/13/[address] [address] documented as of this encounter
--- OUTSIDE RECORDS SUMMARY | 2021-11-29 00:29 | XMS_ITS | Encounter Summary ---
:1970 Author Organization [facility] Address [address] [place] [address] Care Team Providers Name Role Phone Evert Perdomo MD Primary Care Provider Reason for Visit Reason Onset Date Comments Medications Refill 11/14/2015 Encounter Details Date Type Department Care Team Description 11/14/2015 Refill [facility] Adult Evert Perdomo MD Medications Refill Primary Care - [address] [phone] (Wo rk) Social History Tobacco Use Types [...] 1 Tab by mouth 30 Tab 0 01/21/2016 tablet 2 times daily as needed for Anxiety (PMS). Daily Max: 2 mg documented in this encounter Miscellaneous Notes Telephone Encounter - Audelia Martínez - 11/14/2015 1152 EDT [facility] [place] elephone Encounter - Khadra Vaughn RN - 11/14/2015 1018 EDT Last OV 01/02/15 Last refill 08/08/15 elephone Encounter - Khadra Vaughn RN - 11/14/2015 1018 EDT From: Jia Dow To: Evert Perdomo MD Sent: 11/14/2015 10:08 EDT Subject: Medication Renewal Request Original authorizing provider: MD Jia Ellis would like a refill of the following medications: LORazepam (ATIVAN) 1 mg tablet [Evert Perdomo MD] Preferred pharmacy: [id number] Comment: documented in this encounter Plan of Treatment Upcoming Encounters Date Type Specialty Care Team Description 12/16/2021 Appointment Infusion Therapy 04/15/2022 Office Visit Hematology and Oncology Poppy Felton PA-C 111 [facility], [facility], [facility] 2 [place], [place] [phone] (Wo rk) 05/30/2022 Office Visit Surgical Oncology Asa Cameron MD 111 [facility], Level 2 [place], [place] [phone] (Wo rk) documented as of this encounter Visit Diagnoses Not on filedocumented in this encounter Discontinued Medications Medication Sig Discontinue Reason Start Date End Date LORazepam (ATIVAN) 1 mg Take 1 Tab by mouth Reorder 08/08/2015 11/14/2015 tablet 2 times daily as needed for Anxiety (PMS). Daily Max: 2 mg documented as of this encounter Care Teams Service Delivery Management Consultant Relationship Specialty Start Date End Date Evert Perdomo MD PCP - General 10/13/08 05/13/[address] [address] documented as of this encounter
--- OUTSIDE RECORDS SUMMARY | 2021-11-29 00:29 | XMS_ITS | Encounter Summary ---
:1970 Author Organization [facility] Address [address] [place] [address] Care Team Providers Name Role Phone Evert Predomo MD Primary Care Provider Philip Schulz MD Primary Care Provider Jia Minor PA-C Primary Care Provider Unavailable Filomena Ochoa PA-C Primary Care Provider [phone] Reason for Visit Reason Onset Date Comments Medications Refill 02/01/2015 Encounter Details Date Type Department Care Team Description 02/01/2015 Refill [facility] Adult Evert Perdomo MD Medications Refill Primary Care - [phone] [place] [phone] (Wo rk) Social History Tobacco Use Types [...] Take 1 Cap by 90 Cap 0 201404/17/2015 40 mg capsule mouth every morning for 90 days Earliest Fill Date: 02/06/15 Daily Max: 40 mg lisdexamfetamine (VYVANSE) Take 1 Cap by 90 Cap 0 201402/02/2015 40 mg capsule mouth every morning for 28 days Earliest Fill Date: 02/06/15 Daily Max: 40 mg lisdexamfetamine (VYVANSE) Take 1 Cap by 28 Cap 0 201402/02/2015 40 mg capsule mouth every morning for 28 days Earliest Fill Date: 02/06/15 Daily Max: 40 mg documented in this encounter Miscellaneous Notes Telephone Encounter - Mamta Mayorga - 02/08/2015 1334 EST 90 day script in drawer elephone Encounter - Lucero Ly RN - 02/02/2015 0800 EST Patient requesting 90 day supply. Patient to mail to mail order pharmacy. Patient did receive 90 daysupply in the past. elephone Encounter - Melanie Oconnor RN - 02/01/2015 1449 EST *see pts note below- she is requesting 40 mg caps instead of 50 mg. I have pended the 40 mg caps as requested. She is also requesting a 90 day supply. She has always gotten 28 day supplies in the past so I have pended it this way. Do you want to change it to a 90 day supply? Telephone Encounter - Melanie Oconnor RN - 02/01/2015 1443 EST From: Jia Dow To: Evert Perdomo MD Sent: 02/01/2015 13:05 EST Subject: Medication Renewal Request Original authorizing provider: MD Jia Ellis would like a refill of the following medications: lisdexamfetamine (VYVANSE) 50 mg capsule [Evert Perdomo MD] Preferred pharmacy: Other - will warehouse picker Comment: I am requesting a prescription for a 90 day supply of vyvanse (a 3 month prescription) 40 mg. My Kareem can warehouse picker the script and I will send it to mail order, as this type of medicine can't be called in. Last month Dr. Perdomo upped my daily dose of vyvanse from 40 to 50mg, per my request and our conversation. If it isn't a problem, I would like to return to the 40mg dose, as the 50 mg dose had me feeling a little more anxious than I'd like. Pls feel free to call me at [phone] if documented in this encounter Plan of Treatment Upcoming Encounters Date Type Specialty Care Team Description 12/16/2021 Appointment Infusion Therapy 04/15/2022 Office Visit Hematology and Oncology Poppy Felton PA-C 111 [facility], [facility] 2 [place], [place] [phone] (Wo bradford) 05/30/2022 Office Visit Surgical Oncology Asa Cameron MD 111 [facility], [facility] 2 [place], [place] [phone] (Larissa felder) documented as of this encounter Visit Diagnoses Diagnosis Attention deficit hyperactivity disorder (ADHD), unspecified ADHD type documented in this encounter Discontinued Medications Medication Sig Discontinue Reason Start Date End Date lisdexamfetamine (VYVANSE) Take 1 Cap by 01/09/2015 02/01/2015 50 mg capsuleIndications: mouth every Attention deficit morning for 28 hyperactivity disorder days Earliest Fill (ADHD), unspecified ADHD Date: 01/09/15 type Daily Max: 50 mg lisdexamfetamine (VYVANSE) Take 1 Cap by Reorder 02/06/2015 02/02/2015 40 mg capsule mouth every morning for 28 days Earliest Fill Date: 02/06/15 Daily Max: 40 mg lisdexamfetamine (VYVANSE) Take 1 Cap by Reorder 02/06/2015 02/02/2015 40 mg capsule mouth every morning for 28 days Earliest Fill Date: 02/06/15 Daily Max: 40 mg documented as of this encounter Additional Health Concerns Infection Onset Date Last Indicated Resolved Time R/O COVID-19 10/16/2019 10/16/2019 10/21/2019 22:15 EDT documented as of this encounter Care Teams Pipefitter Relationship Specialty Start Date End Date Evert Perdomo MD PCP - General 10/13/08 05/13/[address] [phone] Philip Schulz MD PCP - General 05/14/16 12/06/[address] [place] [address] [place] [address] Jia Minor PA-C PCP - General 12/07/1703/01/18 Filomena Ochoa PA-C PCP - General 03/02/18 2 [place] [phone] documented as of this encounter
--- OUTSIDE RECORDS SUMMARY | 2021-11-29 00:29 | XMS_ITS | Encounter Summary ---
:[address] [facility] Address [address] [place] [address] Care Team Providers Name Role Phone Evert Perdomo MD Primary Care Provider Reason for Visit Reason Onset Date Comments Medications Refill 04/16/2015 Encounter Details Date Type Department Care Team Description 04/16/2015 Refill [facility] Adult Evert Perdomo MD Medications Refill Primary Care - [address] [phone] (Wo rk) Social History Tobacco Use Types [...] Take 1 Cap by 90 Cap 0 201507/03/2015 40 mg capsule mouth every morning for 90 days. Mail order Fill date 04-30-15 for start date of 05-07-15 Earliest Fill Date: 04/30/15 Daily Max: 40 mg documented in this encounter Miscellaneous Notes Addendum Note - Lucero Sadler RN - 04/17/2015 0832 EST Addended by: LUCERO SADLER on: 04/17/2015 08:32 Modules accepted: Orders elephone Encounter - Lucero Sadler RN - 04/17/2015 0830 EST From: Jia Dow To: Evert Perdomo MD Sent: 04/16/2015 9:41 EST Subject: Medication Renewal Request Original authorizing provider: MD Jia Ellis would like a refill of the following medications: lisdexamfetamine (VYVANSE) 40 mg capsule [Evert Perdomo MD] [facility] [place] [place] [facility] [address] [facility] Comment: Please send (not fax) prescription directly to [facility] mail order for a 90 day supply. Thank you! documented in this encounter Plan of Treatment Upcoming Encounters Date Type Specialty Care Team Description 12/16/2021 Appointment Infusion Therapy 04/15/2022 Office Visit Hematology and Oncology Poppy Felton PA-C [address] [place] [address] 2 [place], [place] [phone] (Wo rk) 05/30/2022 Office Visit Surgical Oncology Asa Cameron MD 111 [facility], [facility], [facility] 2 [place], [place] [phone] (Wo rk) documented as of this encounter Visit Diagnoses Not on filedocumented in this encounter Discontinued Medications Medication Sig Discontinue Reason Start Date End Date lisdexamfetamine (VYVANSE) Take 1 Cap by Reorder 02/06/2015 04/17/2015 40 mg capsule mouth every morning for 90 days Earliest Fill Date: 02/06/15 Daily Max: 40 mg documented as of this encounter Care Teams Customer Account Coordinator Relationship Specialty Start Date End Date Evert Perdomo MD PCP - General 10/13/08 05/13/[address] [phone] documented as of this encounter
--- OUTSIDE RECORDS SUMMARY | 2021-11-29 00:29 | XMS_ITS | Encounter Summary ---
:1970 Author Organization [facility] Address [address] [place] [address] Care Team Providers Name Role Phone Evert Perdomo MD Primary Care Provider Reason for Visit Reason Onset Date Comments Medications Refill 10/09/2015 Encounter Details Date Type Department Care Team Description 10/09/2015 Refill [facility] Adult Evert Perdomo MD Medications Refill Primary Care - [address] [phone] (Wo rk) Social History Tobacco Use Types [...] TAKE 1 TABLET AT 90 Tab 0 201510/10/2015 mg tablet BEDTIME documented in this encounter Miscellaneous Notes Telephone Encounter - Maye Galeano - 10/09/2015 0909 EDT Medication(s) requested: Trazodone tab 100mg Is the pt out of the medication?: unknown Pharmacy: [facility] Last OV w/PCP: 01/02/15 Next OV w/PCP: Visit date not found Maye Galeano 10/09/2015 9:09 documented in this encounter Plan of Treatment Upcoming Encounters Date Type Specialty Care Team Description 12/16/2021 Appointment Infusion Therapy 04/15/2022 Office Visit Hematology and Oncology Poppy Felton PA-C 111 [facility], [facility] 2 [place], [place] [phone] (Wo rk) 05/30/2022 Office Visit Surgical Oncology Asa Cameron MD 111 [facility], [facility] 2 [place], [place] [phone] (Wo rk) documented as of this encounter Visit Diagnoses Not on filedocumented in this encounter Discontinued Medications Medication Sig Discontinue Reason Start Date End Date traZODone (DESYREL) 100 TAKE 1 TABLET AT Reorder 04/11/2015 10/09/2015 mg tablet BEDTIME documented as of this encounter Care Teams Claims Investigator Relationship Specialty Start Date End Date Evert Perdomo MD PCP - General 10/13/08 05/13/16 [address] [place] [address] documented as of this encounter
--- OUTSIDE RECORDS SUMMARY | 2021-11-29 00:29 | XMS_ITS | Encounter Summary ---
:1970 Author Organization [facility] Address [address] [place] [address] Care Team Providers Name Role Phone Evert Perdomo MD Primary Care Provider Reason for Visit Reason Onset Date Comments Medications Refill 04/11/2015 Encounter Details Date Type Department Care Team Description 04/11/2015 Refill [facility] Adult Evert Perdomo MD Medications Refill Primary Care - [address] [address] [phone] (Wo rk) Social History Tobacco Use Types [...] 1 Tab by mouth 30 Tab 0 08/08/2015 tablet 2 times daily as needed for Anxiety (PMS). Daily Max: 2 mg documented in this encounter Miscellaneous Notes Addendum Note - Lucero Sadler RN - 04/11/2015 1536 EST Addended by: LUCERO SADLER on: 04/11/2015 15:36 Modules accepted: Orders Telephone Encounter - Lucero Sadler RN - 04/11/2015 1535 EST From: Jia Dow To: Evert Perdomo MD Sent: 04/11/2015 0:50 EST Subject: Medication Renewal Request Original authorizing provider: MD Jia Ellis would like a refill of the following medications: LORazepam (ATIVAN) 1 mg tablet [Evert Perdomo MD] Preferred pharmacy: [id number] Comment: 30 day supply, please documented in this encounter Plan of Treatment Upcoming Encounters Date Type Specialty Care Team Description 12/16/2021 Appointment Infusion Therapy 04/15/2022 Office Visit Hematology and Oncology Poppy Felton PA-C [address] [phone] (Wo rk) 05/30/2022 Office Visit Surgical Oncology Asa Cameron MD [address] [phone] (Wo rk) documented as of this encounter Visit Diagnoses Not on filedocumented in this encounter Discontinued Medications Medication Sig Discontinue Reason Start Date End Date LORazepam (ATIVAN) 1 mg Take 1 Tab by mouth Reorder 01/02/2015 04/11/2015 tablet 2 times daily as needed for Anxiety (PMS) Daily Max: 2 mg documented as of this encounter Care Teams Cyber Intel Planner Relationship Specialty Start Date End Date Evert Perdomo MD PCP - General 10/13/08 05/13/[address] [place] [address] documented as of this encounter
--- OUTSIDE RECORDS SUMMARY | 2021-11-29 00:29 | XMS_ITS | Encounter Summary ---
:1970 Author Organization [facility] Address [address] [place] [address] Care Team Providers Name Role Phone Evert Perdomo MD Primary Care Provider Reason for Visit Reason Onset Date Comments Medications Refill 07/13/2014 Encounter Details Date Type Department Care Team Description 07/13/2014 Refill [facility] Adult Evert Perdomo MD Medications Refill Primary Care - [phone] [place] [phone] (Wo rk) Social History Tobacco Use Types [...] Take 1 Cap by 90 Cap 0 201408/14/2014 30 mg capsuleIndications: mouth every ADHD (attention deficit morning for 90 hyperactivity disorder) days Earliest Fill Date: 07/14/14 Daily Max: 30 mg documented in this encounter Miscellaneous Notes Telephone Encounter - Cristiane Bautista - 07/18/2014 1353 EDT Pt called today, she says it takes about three weeks to get the Rx from [facility]. Pt said last Thursday she had 14-16 left. Today she is saying she only has only a week's worth left. Pt is wanting to know if Dr. Perdomo will do a 7 day script & mail it to her pharmacy until she can get her mail orderRx. If a small script is done it has to be mailed to the pharmacy via UPS or Fed Ex as the pt says they do not have regular mail to the pharmacy out there, she says they all have PO boxes. elephone Encounter - Charlotte Lynne - 07/14/2014 1405 EDT Script for a 90 day supply mailed to [facility] elephone Encounter - Carey Tejada RN - 07/13/2014 1657 EDT See routing message from Dr Fink - 90 day supply pended - [facility] go [facility] pharmacy. elephone Encounter - Melanie Oconnor RN - 07/13/2014 1624 EDT Last prescription was 04/12- 07/11, #90. A 2 week supply is pended. elephone Encounter - Charlotte Lynne - 07/13/2014 1556 EDT Medication(s) requested: Vyvanse 30 mg 1 po daily DOS Is the pt out of the medication?: No Pharmacy:per patient send via UPS or Fed Ex only Reg mail is PO box that they do not go to daily [id number] - [place], [place] - [address] [facility] Last refill date: 04/12/14 Last OV w/PCP: 02/22/14 Next OV w/PCP: Visit date not found Charlotte Lynne 07/13/2014 15:56 documented in this encounter Plan of Treatment Upcoming Encounters Date Type Specialty Care Team Description 12/16/2021 Appointment Infusion Therapy 04/15/2022 Office Visit Hematology and Oncology Poppy Felton, PACl [address] [phone] (Larissa felder) 05/30/2022 Office Visit Surgical Oncology Asa Cameron MD 111 [facility] 2 [place], [place] [phone] (Larissa rk) documented as of this encounter Visit Diagnoses Diagnosis ADHD (attention deficit hyperactivity di sorder) - Primary Attention deficit disorder with hyperact ivity documented in this encounter Discontinued Medications Medication Sig Discontinue Reason Start Date End Date lisdexamfetamine (VYVANSE) Take 1 Cap by 09/20/2013 07/13/2014 30 mg capsule mouth every morning for 90 days ID #[id number]. Earliest Fill Date: 09/20/13 lisdexamfetamine (VYVANSE) Take 1 Cap by 10/26/2012 07/13/2014 30 mg capsule mouth daily for 90 days. lisdexamfetamine (VYVANSE) Take 1 Cap by Reorder 04/12/2014 07/13/2014 30 mg capsuleIndications: mouth every ADHD (attention deficit morning for 90 hyperactivity disorder) days Earliest Fill Date: 04/12/14 Daily Max: 30 mg documented as of this encounter Care Teams Fresh Foods Technician Relationship Specialty Start Date End Date Evert Perdomo MD PCP - General 10/13/08 05/13/[address] [place] [address] documented as of this encounter
--- OUTSIDE RECORDS SUMMARY | 2021-11-29 00:29 | XMS_ITS | Encounter Summary ---
:1970 Author Organization [facility] Address [address] [place] [address] Care Team Providers Name Role Phone Evert Perdomo MD Primary Care Provider Reason for Visit Reason Onset Date Comments Medications Refill 04/19/2014 Encounter Details Date Type Department Care Team Description 04/19/2014 Refill [facility] Adult Kyleigh Coronado MD Medications Refill Primary Care - [address] [phone] (Wo rk) Social History Tobacco Use Types [...] Telephone Encounter - Lucero Ly RN - 05/09/2014 1433 EDT Call to patient. Patient states she just received a 90 day prescription from [facility]. Does not currently need medication. Will void prescription for vyvance. Patient will call back when needs refill. The patient indicates understanding of these issues and agrees with the plan. Telephone Encounter - Lucero Ly RN - 05/09/2014 1428 EDT Letter containing prescription for vyvance was returned to office. Address to [facility] in [place] incorrect. elephone Encounter - Filomena Ochoa PA - 04/24/2014 1515 EST It appears that this prescription (trazodone) was already filled this AM. Does pt need 2 tabs or is she all set? elephone Encounter - Lucero Ly RN - 04/19/2014 1658 EST From: Jia Dow To: Kyleigh Jacinto MD Sent: 04/19/2014 14:28 EST Subject: Medication Renewal Request Original authorizing provider: MD Jia Francis would like a refill of the following medications: traZODone (DESYREL) 100 mg tablet [Kyleigh Jacinto MD] Preferred pharmacy: [facility] #[id number] - [email or web address] - [address] [place] [address] Comment: Trazodone can be called in to [facility] (90 day supply with refills please) Lorazepam: could this be called in to [facility] pharmacy in [facility] (where I temporarily live)? Address: [address] [facility], [place] [address] Jia Gaviria [phone] Medication renewals requested in this message routed to other providers: LORazepam (ATIVAN) 1 mg tablet [Evert Perdomo MD] documented in this encounter Plan of Treatment Upcoming Encounters Date Type Specialty Care Team Description 12/16/2021 Appointment Infusion Therapy 04/15/2022 Office Visit Hematology and Oncology Poppy Felton, PAChuyC [address] [phone] (Wo rk) 05/30/2022 Office Visit Surgical Oncology Asa Cameron MD [address] [phone] (Wo rk) documented as of this encounter Visit Diagnoses Not on filedocumented in this encounter Care Teams Outboard Motor Inspector Relationship Specialty Start Date End Date Evert Perdomo MD PCP - General 10/13/08 05/13/[address] [address] documented as of this encounter
--- OUTSIDE RECORDS SUMMARY | 2021-11-29 00:29 | XMS_ITS | Encounter Summary ---
:1970 Author Organization [facility] Address [address] [place] [address] Care Team Providers Name Role Phone Evert Perdomo MD Primary Care Provider Reason for Visit Reason Onset Date Comments Medications Refill 08/08/2015 Encounter Details Date Type Department Care Team Description 08/08/2015 Refill [facility] Adult Evert Perdomo MD Medications Refill Primary Care - [address] [phone] (Wo rk) Social History Tobacco Use Types [...] documented as of this encounter Miscellaneous Notes Addendum Note - Khadra Vaughn RN - 08/08/2015 1139 EDT Addended by: KHADRA VAUGHN on: 08/08/2015 11:39 Modules accepted: Orders elephone Encounter - Khadra Vaughn RN - 08/08/2015 1131 EDT From: Jia Dow To: Evert Perdomo MD Sent: 08/08/2015 10:05 EDT Subject: Medication Renewal Request Original authorizing provider: MD Jia Ellis would like a refill of the following medications: LORazepam (ATIVAN) 1 mg tablet [Evert Perdomo MD] Preferred pharmacy: [id number] Comment: documented in this encounter Plan of Treatment Upcoming Encounters Date Type Specialty Care Team Description 12/16/2021 Appointment Infusion Therapy 04/15/2022 Office Visit Hematology and Oncology Poppy Felton, SHAHAB [address] [phone] (Wo rk) 05/30/2022 Office Visit Surgical Oncology Asa Cameron MD [address] [phone] (Wo rk) documented as of this encounter Visit Diagnoses Not on filedocumented in this encounter Care Teams Maintenance Carpenter Relationship Specialty Start Date End Date Evert Perdomo MD PCP - General 10/13/08 05/13/[address] [address] documented as of this encounter
--- OUTSIDE RECORDS SUMMARY | 2021-11-29 00:29 | XMS_ITS | Encounter Summary ---
:1970 Author Organization [facility] Address [address] [place] [address] Care Team Providers Name Role Phone Evert Perdomo MD Primary Care Provider Reason for Visit Reason Onset Date Comments Medications Refill 10/10/2015 Encounter Details Date Type Department Care Team Description 10/10/2015 Refill [facility] Adult Evert Perdomo MD Medications Refill Primary Care - [address] [phone] (Wo rk) Social History Tobacco Use Types [...] Date: 10/27/15 Daily Max: 40 mg documented in this encounter Miscellaneous Notes Telephone Encounter - Elyssa Pal - 10/10/2015 2729 EDT Mailed to [facility] elephone Encounter - Khadra Vaughn RN - 10/10/2015 1133 EDT From: Jia Dow To: Evert Perdomo MD Sent: 10/10/2015 11:30 EDT Subject: Medication Renewal Request Original authorizing provider: MD Jia Ellis would like a refill of the following medications: lisdexamfetamine (VYVANSE) 40 mg capsule [Evert Perdomo MD] [facility] [place] [address] [address] [facility] Comment: Vyvanse 40mg Capsule Qty 90 days supply Please mail (US mail) this prescription directly to [facility] mail service (can't be faxed). Please make sure it is a 90 day supply. Thank you! documented in this encounter Plan of Treatment Upcoming Encounters Date Type Specialty Care Team Description 12/16/2021 Appointment Infusion Therapy 04/15/2022 Office Visit Hematology and Oncology Poppy Felton, SHAHAB 111 [facility] 2 [place], [place] [phone] (Wo rk) 05/30/2022 Office Visit Surgical Oncology Asa Cameron MD 111 [facility], [facility], Level [address] [place], [place] [phone] (Wo rk) documented as of this encounter Visit Diagnoses Not on filedocumented in this encounter Discontinued Medications Medication Sig Discontinue Reason Start Date End Date lisdexamfetamine (VYVANSE) Take 1 Cap by Reorder 07/29/2015 10/10/2015 40 mg capsule mouth every morning for 90 days. Earliest Fill Date: 07/29/15 Daily Max: 40 mg documented as of this encounter Care Teams Collision Technician Relationship Specialty Start Date End Date Evert Perdomo MD PCP - General 10/13/08 05/13/16 108 [facility] [address] [place], [place] [address] documented as of this encounter
--- OUTSIDE RECORDS SUMMARY | 2021-11-29 00:29 | XMS_ITS | Encounter Summary ---
:[address] [facility] Address [address] [place] [address] Care Team Providers Name Role Phone Evert Perdomo MD Primary Care Provider Reason for Visit Reason Comments Other Encounter Details Date Type Department Care Team Description 07/26/2014 Refill [facility] Adult Felicia Leavitt MD Other Primary Care - [address] [phone] (Wo rk) Social History Tobacco Use Types [...] TAKE 1 TABLET AT 90 Tab 0 201411/01/2014 mg tablet BEDTIME documented in this encounter Miscellaneous Notes Telephone Encounter - Tiarra Dubois, RN - 07/27/2014 1111 EDT Refill request for trazodone Last OV 03/25/13 documented in this encounter Plan of Treatment Upcoming Encounters Date Type Specialty Care Team Description 12/16/2021 Appointment Infusion Therapy 04/15/2022 Office Visit Hematology and Oncology Poppy Felton, PAChuyC [address] [phone] (Wo rk) 05/30/2022 Office Visit Surgical Oncology Asa Cameron MD [address] [phone] (Wo rk) documented as of this encounter Visit Diagnoses Not on filedocumented in this encounter Discontinued Medications Medication Sig Discontinue Reason Start Date End Date traZODone (DESYREL) 100 TAKE 1 TABLET AT Reorder 04/24/2014 07/26/2014 mg tablet BEDTIME documented as of this encounter Care Teams Lbd Teacher Relationship Specialty Start Date End Date Evert Perdomo MD PCP - General 10/13/08 05/13/[address] [address] documented as of this encounter
--- OUTSIDE RECORDS SUMMARY | 2021-11-29 00:29 | XMS_ITS | Encounter Summary ---
:1970 Author Organization [facility] Address [address] [place] [address] Care Team Providers Name Role Phone Evert Perdomo MD Primary Care Provider Reason for Visit Reason Onset Date Comments Medication Management 11/14/2014 Encounter Details Date Type Department Care Team Description 11/14/2014 Telephone [facility] Evert Perdomo, [facility] ication Management Adult Primary Care - [address] [phone] (Wo rk) Social History Tobacco Use Types [...] (NOLVADEX) 20 Take 1 Tab by mouth 30 Tab 0 03/13/2015 mg tablet daily To cover until mail order received tamoxifen (NOLVADEX) 20 Take 1 Tab by mouth 30 Tab 0 07/03/2015 mg tablet daily Waiting for mail order. documented in this encounter Miscellaneous Notes Telephone Encounter - Tiarra Dubois RN - 11/15/2014 1603 EDT 30 day script was sent to mail order and should have been sent to local pharmacy. Called in 30 day script to local pharmacy on 11/15 And needed to pend a 90 day script for mail order elephone Encounter - Tiarra Dubois RN - 11/15/2014 1551 EDT Did order for 30 pills to get patient through until mail order received elephone Encounter - Elyssa Pal - 11/15/2014 1528 EDT Patient needed this to go to [facility], she is there now. elephone Encounter - Nito Holbrook - 11/14/2014 1509 EDT Reason for Call: Medication management Summary/Symptoms: Patient states that her latest tamoxifen refill was processed but is in the mail and she has not received it yet. Was wondering if we could process a short fill for a few days to a week? Onset and Duration? N/A Appointment Offered? No Nito Holbrook 11/14/2014 15:09 documented in this encounter Plan of Treatment Upcoming Encounters Date Type Specialty Care Team Description 12/16/2021 Appointment Infusion Therapy 04/15/2022 Office Visit Hematology and Oncology Poppy Felton PA-C 111 [facility], [facility] 2 [place], [place] [phone] (Wo rk) 05/30/2022 Office Visit Surgical Oncology Asa Cameron MD [address] [phone] (Wo rk) documented as of this encounter Visit Diagnoses Not on filedocumented in this encounter Discontinued Medications Medication Sig Discontinue Reason Start Date End Date tamoxifen (NOLVADEX) 20 Take 1 Tab by mouth Reorder 10/11/2014 11/14/2014 mg tablet daily tamoxifen (NOLVADEX) 20 Take 1 Tab by mouth Reorder 10/11/2014 11/15/2014 mg tablet daily documented as of this encounter Care Teams Director Of Marketing Relationship Specialty Start Date End Date Evert Perdomo MD PCP - General 10/13/08 05/13/[address] [address] documented as of this encounter
--- OUTSIDE RECORDS SUMMARY | 2021-11-29 00:29 | XMS_ITS | Encounter Summary ---
:1970 Author Organization [facility] Address [address] [place] [address] Care Team Providers Name Role Phone Evert Perdomo MD Primary Care Provider Reason for Visit Reason Comments Follow-up Encounter Details Date Type Department Care Team Description 02/12/2015 Office Visit [facility] Asa Cameron MD Personal history of Surgical Oncology - [address] [place] malign ant neoplasm of [facility] [address] breast (Primary Dx) [address] [place] [address] Pavilion, [place] [phone] (Wo rk) Social History Tobacco Use Types [...] lasm of breast-Z85.3[ICD-10-CM] documented in this encounter Discharge Disposition Disposition Code Departure Means Destination Auto Discharge documented in this encounter Progress Notes Asa Cameron MD - 02/13/2015 0812 EST [facility] BREAST CANCER PROGRAM PROGRESS / FOLLOWUP NOTE - 02/12/2015 PROBLEM: The patient is seen in followup for a history of breast cancer. SUBJECTIVE: The patient is a 44-year-old woman who had a right breast cancer in July 2011, underwenta right total mastectomy with sentinel node biopsy and a prophylactic left total mastectomy with bilateral implant reconstructions. Tumor stage was T1c N0. She has been on tamoxifen, which she continues on and is doing relatively well with that. The patient is seen here in routine followup. She has just recently had some tattooing of the nipple areolar areas and has a little bit of sensitivity there,but otherwise has no complaints. OBJECTIVE: On exam she is in no acute distress. There is no scleral icterus. There are no palpable neck masses, no cervical or supraclavicular lymph nodes are noted. There are no thyroid nodules. Thereare no carotid bruits or JVD. Lungs are clear to auscultation. Heart has a regular rate and rhythm without S3, S4, or murmurs. She has bilateral skin-sparing mastectomies with implant reconstructions. Palpation of the right mastectomy site reveals no palpable abnormalities suspicious for recurrence. The implant is in good position. There are no palpable lymph nodes in the right axilla. The left mastectomy site has no palpable abnormalities. Implant is in good position. There are no palpable abnormalities in the axilla. There are no abdominal masses, no abdominal tenderness, no hepato or splenomegaly is noted. She has good range of motion of the upper extremities, no edema in the upper extremities is noted. DIAGNOSTIC DATA: Ultrasound of the right mastectomy site shows no evidence of recurrent disease. Theimplant is in good position. There are no abnormal- appearing lymph nodes seen in the internal mammary or axillary region. On the left side, again the implant is in good position. There is no evidence of recurrent disease in the mastectomy site. There are no abnormal lymph nodes in the internal mammaryor axillary region. ASSESSMENT: The patient is doing well. She is without evidence of recurrent disease. PLAN: To have her return for a followup again in 1 year. Asa Cameron MD 05 16 PM - Asa Cameron MD cn Dictation ID: [id number] cc: Jessi Pleitez MD, [facility] - Hematology Oncology [address] [place] [address] Evert Perdomo MD, [facility] - [place] [address] Roman Chino MD, [facility] - Plastic Surgery [address] [place] [address] documented in this encounter Plan of Treatment Upcoming Encounters Date Type Specialty Care Team Description 12/16/2021 Appointment Infusion Therapy 04/15/2022 Office Visit Hematology and Oncology Poppy Felton PA-C [address] [phone] (Wo rk) 05/30/2022 Office Visit Surgical Oncology Asa Cameron MD 111 [facility] 2 [place], [place] [phone] (Wo rk) documented as of this encounter Visit Diagnoses Diagnosis Personal history of malignant neoplasm o f breast - Primary documented in this encounter Care Teams Cordage Sales Representative Relationship Specialty Start Date End Date Evert Perdomo MD PCP - General 10/13/08 05/13/[address] [address] documented as of this encounter
--- OUTSIDE RECORDS SUMMARY | 2021-11-29 00:29 | XMS_ITS | Encounter Summary ---
:1970 Author Organization [facility] Address [address] [place] [address] Care Team Providers Name Role Phone Evert Perdomo MD Primary Care Provider Reason for Visit Reason Onset Date Comments Labs Only 11/06/2015 Encounter Details Date Type Department Care Team Description 11/06/2015 Telephone [facility] Hematology Carmen Overton, Labs Only & Oncology - Main Ca mpus RN [address] [place] [address] Social History Tobacco Use Types [...] Tab by mouth 90 Tab 1 0 11/06/2015 12/24/2015 150 mg XL daily. tabletIndications: Depression, unspecified depression type, Malignant neoplasm of female breast, unspecified laterality, unspecified site of breast documented in this encounter Miscellaneous Notes Telephone Encounter - Carmen Overton RN - 11/06/2015 1350 EDT Ms Dow called and made aware her lab test was denied through her insurance. Pt made aware insurance is asking about effexor, celexa or lexapro being tried in the past. Ms Dow reports she has tried many SSRI's in the past and they seem to only work for 3 months then no longer are effective for her. Dr. Pleitez made aware and will appeal denial. Ms Dow requested a 90 day supply be sent to the [facility] pharmacy per her insurance needs. elephone Encounter - Camren Overton RN - 11/06/2015 1120 EDT Left message for Ms Dow to obtain more information to get approval for her lab test through her insurance. documented in this encounter Plan of Treatment Upcoming Encounters Date Type Specialty Care Team Description 12/16/2021 Appointment Infusion Therapy 04/15/2022 Office Visit Hematology and Oncology Poppy Felton PA-C 111 [facility], [facility], [facility] 2 [place], [place] [phone] (Wo rk) 05/30/2022 Office Visit Surgical Oncology Asa Cameron MD 111 [facility], [facility], Level [address] [place], [place] [phone] (Wo rk) documented as of this encounter Visit Diagnoses Diagnosis Depression, unspecified depression type Malignant neoplasm of female breast, uns pecified laterality, unspecified site of breast documented in this encounter Discontinued Medications Medication Sig Discontinue Reason Start Date End Date buPROPion (WELLBUTRIN XL) Take 1 Tab by mouth Reorder 11/01/19 16 11/06/2015 150 mg XL daily. tabletIndications: Depression, unspecified depression type, Malignant neoplasm of female breast, unspecified laterality, unspecified site of breast documented as of this encounter Care Teams Sorter/Assay Tech Relationship Specialty Start Date End Date Evert Perdomo MD PCP - General 10/13/08 05/13/[address] [address] documented as of this encounter
--- OUTSIDE RECORDS SUMMARY | 2021-11-29 00:29 | XMS_ITS | Encounter Summary ---
:1970 Author Organization [facility] Address [address] [place] [address] Care Team Providers Name Role Phone Evert Perdomo MD Primary Care Provider Reason for Visit Reason Comments Nipple Tattoo 2013 faded Encounter Details Date Type Department Care Team Description 12/19/2014 Office Visit [facility] Dwayne Reynolds neoplasm of Plastic, Reconstructive Jazmine Sandra PA-C right female breast, & [facility] breast (Primary Dx) [address] [place], [place] [phone] [place] [address] Social History Tobacco Use Types [...] older) documented as of this encounter Discharge Diagnoses Diagnosis C50.911 Malignant neoplasm of unspecifie d site of right female breast-C50.911[ICD-10-CM] documented in this encounter Discharge Disposition Disposition Code Departure Means Destination Auto Discharge documented in this encounter Progress Notes Jazmine Reynolds PA - 12/20/2014 1619 EDT Jia returns. She had bilateral tissue spa coordinator breast reconstruction in 2011. She then moved to [place] and had an implant exchange there. She has this done a second time for improvement in her appearance. She was fat grafted in the second surgery. In November 2013 she had a nipple reconstruction using gortex. She presents today interested in tattooing. She also states that she is concerned with the fake appearance of her breasts especially laterally. She was seen with Dr. Chino today who saidshe would benefit from further fat grafting. We will submit to insurance for fat grafting and for areolar / nipple tattooing and proceed from there. I spent 30 minutes with this patient; 25 minutes was spent in xako-hy-gxce counseling for the above diagnosis. documented in this encounter Plan of Treatment Upcoming Encounters Date Type Specialty Care Team Description 12/16/2021 Appointment Infusion Therapy 04/15/2022 Office Visit Hematology and Oncology Poppy Felton PA-C [address] [facility] [address] [phone] (Wo rk) 05/30/2022 Office Visit Surgical Oncology Asa Cameron MD [address] [facility] [address] [phone] (Wo rk) documented as of this encounter Visit Diagnoses Diagnosis Malignant neoplasm of right female breas t, unspecified site of breast - Primary documented in this encounter Care Teams Carry Out Clerk Relationship Specialty Start Date End Date Evert Perdomo MD PCP - General 10/13/08 05/13/[address] [place] [address] documented as of this encounter
--- OUTSIDE RECORDS SUMMARY | 2021-11-29 00:29 | XMS_ITS | Encounter Summary ---
:1970 Author Organization [facility] Address [address] [place] [address] Care Team Providers Name Role Phone Evert Perdomo MD Primary Care Provider Reason for Referral Consult (Routine) - Specialty Report Received Specialty Diagnoses / Procedures Referred By Contact Refer red To Contact Diagnoses Knee pain, unspecified chronicity, unspecified laterality Jozef Galvez MD [address] [place] [phone] Referral ID Status Reason Start Expiration Visits Visits Date Date Requested Authorized [id number] Specialty Specialty 06/12/2015 1 1 Report Services Received Required Question Answer Reason for Request: L KNEE INJURY Reason for Visit Reason Onset Date Comments Knee Pain 06/12/2015 Encounter Details Date Type Department Care Team Description 06/12/2015 Telephone [facility] Adult Evert Perdomo MD Knee Pain Primary Care - [address] [place] [address] (Wo rk) Social History Tobacco Use Types [...] Notes Telephone Encounter - Pauline Simmons - 06/12/2015 1548 EDT Pt called to request the Ortho Referral be faxed to [facility] in [facility] FAX# [phone] - Done. elephone Encounter - Khadra Vaughn RN - 06/12/2015 1234 EDT Patient had a left knee injury while skiing over the weekend. She was seen at [facility] in [place], [place]. I have contacted that office and they are faxing information from her encounter yesterday. elephone Encounter - Pauline Simmons - 06/12/2015 1205 EDT Pt calling after being seen at a walk in care center in [place] for a knee injury on 06/09.( see 06/10 encounter) She was recommended to f/u with an Orthopedic MD. Pt would like a referral to [facility] To Dr. Mckeon. Pt's tel# fw [phone]- REFERRAL TEED UP documented in this encounter Plan of Treatment Upcoming Encounters Date Type Specialty Care Team Description 12/16/2021 Appointment Infusion Therapy 04/15/2022 Office Visit Hematology and Oncology Poppy Felton, PAChuyC [address] [phone] (Wo rk) 05/30/2022 Office Visit Surgical Oncology Asa Cameron MD [address] [phone] (Wo rk) Scheduled Referrals Name Type Priority Associated Diagnoses Order S chedule AMB CONS/FOLLOW UP Outpatient Referral Routine Knee Pain, Or dered: ORTHOPEDICS Unspecified 06/12/2015 Chronicity, Unspecified Laterality documented as of this encounter Visit Diagnoses Diagnosis Knee pain, unspecified chronicity, unspe cified laterality - Primary documented in this encounter Care Teams Product Tester Fiberglass Relationship Specialty Start Date End Date Evert Perdomo MD PCP - General 10/13/08 05/13/[address] [address] documented as of this encounter
--- OUTSIDE RECORDS SUMMARY | 2021-11-29 00:29 | XMS_ITS | Encounter Summary ---
:1970 Author Organization [facility] Address [address] [place] [address] Care Team Providers Name Role Phone Evert Perdomo MD Primary Care Provider Reason for Visit Reason Onset Date Comments Medications Refill 11/01/2014 Encounter Details Date Type Department Care Team Description 11/01/2014 Refill [facility] Adult Evert Perdomo MD Medications Refill Primary Care - [address] [phone] (Wo rk) Social History Tobacco Use Types [...] TAKE 1 TABLET AT 90 Tab 1 201404/11/2015 mg tablet BEDTIME documented in this encounter Miscellaneous Notes Telephone Encounter - Elyssa Pal - 11/01/2014 1021 EDT Medication(s) requested: trazodone 100 mg tablet, take 1 tab at bedtime, 90 Is the pt out of the medication?: yes Pharmacy: [facility] Last refill date: 07.27.14 Last OV w/PCP: 08.28.14 Next OV w/PCP: Visit date not found Elyssa Pal 11/01/2014 10:21 documented in this encounter Plan of Treatment Upcoming Encounters Date Type Specialty Care Team Description 12/16/2021 Appointment Infusion Therapy 04/15/2022 Office Visit Hematology and Oncology Poppy Felton, PAChuyC 111 [facility], [facility] 2 [place], [place] [phone] (Wo rk) 05/30/2022 Office Visit Surgical Oncology Asa Cameron MD 111 [facility] 2 [place], [place] [phone] (Wo rk) documented as of this encounter Visit Diagnoses Not on filedocumented in this encounter Discontinued Medications Medication Sig Discontinue Reason Start Date End Date traZODone (DESYREL) 100 TAKE 1 TABLET AT Reorder 07/27/2014 11/01/2014 mg tablet BEDTIME documented as of this encounter Care Teams Opto Mechanical Technician Relationship Specialty Start Date End Date Evert Perdomo MD PCP - General 10/13/08 05/13/[address] [address] documented as of this encounter
--- OUTSIDE RECORDS SUMMARY | 2021-11-29 00:29 | XMS_ITS | Encounter Summary ---
:1970 Author Organization [facility] Address [address] [place] [address] Care Team Providers Name Role Phone Evert Perdomo MD Primary Care Provider Encounter Details Date Type Department Care Team Description 10/22/2015 Results Only [facility]- PRISM Nika Charles MD [phone] [address] [facility] [address] [place] [address] (Wo rk) Social History Tobacco Use Types [...] and Oncology Poppy Felton PA-C [address] [phone] (Wo rk) 05/30/2022 Office Visit Surgical Oncology Asa Cameron MD [address] [phone] (Wo rk) documented as of this encounter Procedures Procedure Name Priority Date/Time Associated Diagnosis Comme nts PAP TEST- RESULT Routine 10/22/2015 0:00 EDT Resu lts for this ONLY procedure are i n the results section. documented in this encounter Results PAP TEST- RESULT ONLY (10/22/2015 0:00 EDT) Pathology Report: CYTOPATHOLOGY REPORT [facility] Reports generated via electronic interface contain masha ginal data; SERVICES however they are lacking the format of the original re port. Caution should be taken when reading/interpreting unfo rmatted reports. Name: ? JIA BOTELLO ? Accession #: ? [id number] ? : ? 1970 (Age: [age]) ??F ?Collect Date: ? 10/22/2015 ? Location: ? [facility] ? Receive Date: ? 6 ? Provider: NIKA CHARLES MD Copy to: ? Final Report SPECIMEN ADEQUACY ? Satisfactory for Evaluation - transformation zone component present GENERAL CATEGORIZATION ? Negative for Intraepithelial Lesion or Malignan cy ?? Last Menstrual Period: 10/01/2015 Hormonal/Contraceptive status: None Specimen/Source: ??Pap Test, Cervix/Endocervix, ThinPr ep Imaging System with manual evaluation Document reviewed and electronically signed by: ? Ailyn Starr [facility](ASCP) ? Report ??Date: 10/26/2015 11:35 HPV with Pap Test ? Date Ordered: ? 10/26/2015 ? Status: ?? S igned Out ?Date Complete: ? 10/30/2015 ? By: ??Sys tem Interface ? Date Reported: ? 10/30/2015 ? Interpretation RESULT: Negative for HPV. No E6 or E7 mRNA is detected from HPV types 16,18,31,3 3,35, 39,45,51,52,56,58,59,66, and 68 by branch library clerk media mervat amplification. Comments Document reviewed and electronically signed by: ? System Interface ? Report date: 10/30/2015 By the signature above, the attending physician certif ies that he/she has personally conducted a gross and/or microscopic examin ation of the described specimens and rendered or confirmed the above diagnosi s. End of Report Specimen Performing Organization Address City/State/ZIP Code Phon e Number [facility] [address] [place] [address] SERVICES documented in this encounter Visit Diagnoses Not on filedocumented in this encounter Care Teams Lead Programmer Relationship Specialty Start Date End Date Evert Perdomo MD PCP - General 10/13/08 05/13/[address] [address] documented as of this encounter
--- OUTSIDE RECORDS SUMMARY | 2021-11-29 00:29 | XMS_ITS | Encounter Summary ---
:1970 Author Organization [facility] Address [address] [place] [address] Care Team Providers Name Role Phone Evert Perdomo MD Primary Care Provider Reason for Visit Reason Onset Date Comments Medication Management 09/28/2014 [place] Encounter Details Date Type Department Care Team Description 09/28/2014 Telephone [facility] Evert Perdomo, [facility] ication Management Adult Primary Care - ([place]) [address] [phone] Social History Tobacco Use Types Packs/Day Years [...] Notes Telephone Encounter - Charlotte Lynne - 09/28/2014 1257 EDT Patient did not pickle pumper Vyvanse 30 mg capsule #7 dated 08/15/14 Script has been voided documented in this encounter Plan of Treatment Upcoming Encounters Date Type Specialty Care Team Description 12/16/2021 Appointment Infusion Therapy 04/15/2022 Office Visit Hematology and Oncology Poppy Felton PAChuyC 111 [facility] 2 [place], [place] [phone] (Wo rk) 05/30/2022 Office Visit Surgical Oncology Asa Cameron MD [address] [facility], [facility] 2 [place], [place] [phone] (Wo rk) documented as of this encounter Visit Diagnoses Not on filedocumented in this encounter Care Teams Field Clerk Relationship Specialty Start Date End Date Evert Perdomo MD PCP - General 10/13/08 05/13/[address] [address] documented as of this encounter
--- OUTSIDE RECORDS SUMMARY | 2021-11-29 00:29 | XMS_ITS | Encounter Summary ---
:1970 Author Organization [facility] Address [address] [place] [address] Care Team Providers Name Role Phone Evert Perdomo MD Primary Care Provider Reason for Visit Reason Onset Date Comments Appointment Related 07/28/2014 Encounter Details Date Type Department Care Team Description 07/28/2014 Telephone [facility] Vanessa Dong RN Mary ointment Related Women's Services - [address] [address] Social History Tobacco Use Types [...] this encounter Miscellaneous Notes Telephone Encounter - Vanessa Dong RN - 07/28/2014 2737 EDT Call from pt. has not been seen here for 2 years, as has been living in [place]. was told by provider in [place] that she needed a D+C for endometrial hyperplasia. Pt was inquiring whether we perform D+C in office environment. Informed pt that she would need to be seen as a 45 minute visit, since it's been 2 years since last visit.Informed pt that we do not perform D+C in office, but in [place] as outpatient. Regardless, we wouldneed to see pt as consult and would best to have medical records from provider and referral(though not necessarily needed). Pt stated I might just follow up in [place] with my provider any ways . Pt given nurse triage direct phone number if decides would like to be seen here so nurse can help set up appt.with appropriateprovider. documented in this encounter Plan of Treatment Upcoming Encounters Date Type Specialty Care Team Description 12/16/2021 Appointment Infusion Therapy 04/15/2022 Office Visit Hematology and Oncology Poppy Felton PA-C 111 [facility], [facility] 2 [place], [place] [phone] (Wo rk) 05/30/2022 Office Visit Surgical Oncology Asa Cameron MD 111 [facility] 2 [place], [place] [phone] (Wo rk) documented as of this encounter Visit Diagnoses Not on filedocumented in this encounter Care Teams Audio Specialist Relationship Specialty Start Date End Date Evert Perdomo MD PCP - General 10/13/08 05/13/[address] [address] documented as of this encounter
--- OUTSIDE RECORDS SUMMARY | 2021-11-29 00:29 | XMS_ITS | Encounter Summary ---
:[address] [facility] [place] Address [address] [place] [address] Care Team Providers Name Role Phone Evert Perdomo MD Primary Care Provider Reason for Visit Reason Onset Date Comments Medications Refill 10/10/2015 Encounter Details Date Type Department Care Team Description 10/10/2015 Refill [facility] Adult Evert Perdomo MD Medications Refill Primary Care - [address] [phone] (Wo rk) Social History Tobacco Use Types [...] TAKE 1 TABLET AT 90 Tab 0 201511/15/2015 mg tablet BEDTIME documented in this encounter Miscellaneous Notes Telephone Encounter - Khadra Vaughn RN - 10/10/2015 1311 EDT From: Jia Dow To: Evert Perdomo MD Sent: 10/10/2015 12:00 EDT Subject: Medication Renewal Request Original authorizing provider: MD Jia Ellis would like a refill of the following medications: traZODone (DESYREL) 100 mg tablet [Evert Perdomo MD] Preferred pharmacy: [facility] - [place], [place] - [address] AT [facility] Comment: Trazodone Hcl 100mg Tablet 90 days supply Note: [employer] sent a request for this prescription to your office for 90 days, as it is on auto-renewal. Instead of renewing the 90 day through [employer] mail order, your office sent a prescription for 30 days to [place] [facility] in [facility]. I canceled the 30day order, as my insurance will NOT pay for 30 day, they will only pay for 90 day. They charge me full bill for a 30 day amt. Please abby renew this through [employer] for 90 day suppy documented in this encounter Plan of Treatment Upcoming Encounters Date Type Specialty Care Team Description 12/16/2021 Appointment Infusion Therapy 04/15/2022 Office Visit Hematology and Oncology Poppy Felton, PACl 111 [facility], [facility], [facility] 2 [place], [place] [phone] (Wo rk) 05/30/2022 Office Visit Surgical Oncology Asa Cameron MD 111 [facility], Level 2 [place], [place] [phone] (Wo rk) documented as of this encounter Visit Diagnoses Not on filedocumented in this encounter Discontinued Medications Medication Sig Discontinue Reason Start Date End Date traZODone (DESYREL) 100 TAKE 1 TABLET AT Reorder 10/09/2015 10/10/2015 mg tablet BEDTIME documented as of this encounter Care Teams Live Games Dealer Relationship Specialty Start Date End Date Evert Perdomo MD PCP - General 10/13/08 05/13/[address] [address] documented as of this encounter
--- OUTSIDE RECORDS SUMMARY | 2021-11-29 00:29 | XMS_ITS | Encounter Summary ---
:[address] [facility] Address [address] [place] [address] Care Team Providers Name Role Phone Evert Perdomo MD Primary Care Provider Reason for Visit Reason Onset Date Comments Medications Refill 08/08/2015 Encounter Details Date Type Department Care Team Description 08/08/2015 Refill [facility] Adult Evert Perdomo MD Medications Refill Primary Care - [address] [phone] (Wo rk) Social History Tobacco Use Types [...] 1 Tab by mouth 30 Tab 0 11/14/2015 tablet 2 times daily as needed for Anxiety (PMS). Daily Max: 2 mg documented in this encounter Miscellaneous Notes Telephone Encounter - Pauline Simmons - 08/08/2015 1007 EDT Script phoned in elephone Encounter - Pauline Simmons - 08/08/2015 0934 EDT Medication(s) requested: LORazepam ( ATIVAN) 1 mg tab Is the pt out of the medication?: YES Pharmacy: [facility] Last refill date: 04/11/15 Last OV if other than PCP: Last OV w/PCP: 01/02/15 Next OV w/PCP: Visit date not found Pauline Simmons 08/08/2015 9:34 documented in this encounter Plan of Treatment Upcoming Encounters Date Type Specialty Care Team Description 12/16/2021 Appointment Infusion Therapy 04/15/2022 Office Visit Hematology and Oncology Poppy Felton PA-C [address] [place] [address] [phone] (Larissa felder) 05/30/2022 Office Visit Surgical Oncology Asa Cameron MD [address] [place] [address] [phone] (Wo rk) documented as of this encounter Visit Diagnoses Not on filedocumented in this encounter Discontinued Medications Medication Sig Discontinue Reason Start Date End Date LORazepam (ATIVAN) 1 mg Take 1 Tab by mouth Reorder 04/11/2015 08/08/2015 tablet 2 times daily as needed for Anxiety (PMS). Daily Max: 2 mg documented as of this encounter Care Teams Flight Crew Ordnanceman Relationship Specialty Start Date End Date Evert Perdomo MD PCP - General 10/13/08 05/13/[address] [place] [address] documented as of this encounter
--- OUTSIDE RECORDS SUMMARY | 2021-11-29 00:29 | XMS_ITS | Encounter Summary ---
:1970 Author Organization [facility] Address [address] [place] [address] Care Team Providers Name Role Phone Evert Perdomo MD Primary Care Provider Reason for Visit Reason Onset Date Comments Appointment Related 12/13/2014 Encounter Details Date Type Department Care Team Description 12/13/2014 Telephone [facility] Asa Cameron MD Appointment Related Surgical Oncology - [address] [place] [address], [address], Level [address] [place], [place] [address] [place] [address] [phone] (Wo rk) Social History Tobacco Use [...] this encounter Miscellaneous Notes Telephone Encounter - Mine Chavez - 12/13/2014 1447 EDT Called patient and she is scheduled on 02/12 at 3:30. elephone Encounter - Angeline Mercedes - 12/13/2014 1333 EDT Reason for Call: Appointment Related Summary/Symptoms: Patient calling to schedule fur appt Angeline Mercedes 12/13/2014 13:33 documented in this encounter Plan of Treatment Upcoming Encounters Date Type Specialty Care Team Description 12/16/2021 Appointment Infusion Therapy 04/15/2022 Office Visit Hematology and Oncology Poppy Felton, PACl [address] [phone] (Wo rk) 05/30/2022 Office Visit Surgical Oncology Asa Cameron MD 111 [facility] 2 [place], [place] [phone] (Wo rk) documented as of this encounter Visit Diagnoses Not on filedocumented in this encounter Care Teams Landman Relationship Specialty Start Date End Date Evert Perdomo MD PCP - General 10/13/08 05/13/[address] [address] documented as of this encounter
--- OUTSIDE RECORDS SUMMARY | 2021-11-29 00:29 | XMS_ITS | Encounter Summary ---
:1970 Author Organization [facility] Address [address] [place] [address] Care Team Providers Name Role Phone Evert Perdomo MD Primary Care Provider Reason for Visit Reason Comments Follow-up MEDICATION CHECK Encounter Details Date Type Department Care Team Description 08/28/2014 Office Visit [facility] Evert Perdomo (Primary Dx); Adult Primary Care - MD Teo Attention deficit hyperactivity disorder (ADHD), unspecified ADHD type; [place] [facility] Malignant neoplasm of breast, unspecifie d laterality 87 [facility] [address] [place], [place] [phone] [place] [phone] Social History Tobacco Use Types Packs/Day Years [...] Sign Reading Time Taken Comments Blood Pressure 92/62 08/28/2014911 EDT Pulse 68 08/28/2014911 EDT Temperature 37.1 ??C (98.8 ??F) 08/28/2014911 EDT Respiratory Rate - - Oxygen Saturation - - Inhaled Oxygen Concentration - - Weight 59.4 kg (131 lb) 08/28/2014911 EDT Height 167.6 cm (5' 6) 08/28/2014911 EDT Body Mass Index 21.14 08/28/2014911 EDT documented in this encounter Functional Status Cognitive Status Response Date of Assessment Because of a physical, mental, or emotional condition, do Ye s 08/15/2011 you have serious difficulty concentrating, remembering, or making decisions? (5 years old or older) documented as of this encounter Discharge Diagnoses Diagnosis 311. DEPRESSIVE DISORDER NEC[ICD-9-CM] 314.01 ATTN DEFICIT W HYPERACT[ICD-9-CM] 174.9 MALIGN NEOPL BREAST NOS[ICD-9-CM] documented in this encounter Ordered Prescriptions Prescription Sig Dispensed Refills Start Date End Date lisdexamfetamine (VYVANSE) Take 1 Cap by 28 Cap 0 201410/11/2014 40 mg capsuleIndications: mouth every Attention deficit morning for 28 hyperactivity disorder days Daily Max: 40 (ADHD), unspecified ADHD mg type LORazepam (ATIVAN) 1 mg Take 1 Tab by 30 Tab 0 5 01/02/2015 tablet mouth 2 times daily as needed for Anxiety (PMS) Daily Max: 2 mg lisdexamfetamine (VYVANSE) Take 1 Cap by 7 Cap 0 201408/28/2014 40 mg capsuleIndications: mouth every Attention deficit morning for 28 hyperactivity disorder days Daily Max: 40 (ADHD), unspecified ADHD mg type documented in this encounter Progress Notes Evert Perdomo MD - 08/28/2014 1100 EDT PROBLEM: Depression and anxiety. PROBLEM: ADHD. PROBLEM: Breast cancer. SUBJECTIVE: The patient is now officially moved back to [place]. She still is not excited about tamoxifen therapy, but willing to finish the final 2 years. She is going to be scheduled for D+C due to some irregular uterine bleeding. She reports that the last 2 alonso have been rough for her in terms of depression. She was allowed by her oncologist to use Wellbutrin earlier this year, but did not really feel like it helped her that much. She was having some difficulties with focus, so never felt sheever caught up with her work. She had used a friend's Vyvanse dose, one time and it was 60 mg and she felt that this helped her get a tremendous amount accomplished. Her oncologist continues to be in [facility]. She feels fine physically and the only thing she notes is that if she is dehydrated she feels somewhat lightheaded when changing position. She would like to try a higher dose of the Vyvanse basedon her experience. OBJECTIVE: Seated in no distress with somewhat subdued affect. Weight 131, a 9- pound decrease in 6 months, though BMI is normal at 21. Pulse 68 regular, blood pressure 92/62. Her usual blood pressures are in the high 90s or low 100s. ASSESSMENT: 1. Depression/anxiety -- Per her usual, Kathryn is improved and there is a definite seasonal component to this, but no need to augment therapy at this time. 2. Attention deficit hyperactivity disorder -- Could benefit from a slight increase in her dose. 3. Breast cancer with no evidence of disease on tamoxifen for 3 years. PLAN: A1. Return in 6 months, sooner p.r.n. A2. Follow through on the D+C. B1. Continue Trazodone 100 mg daily. B2. Increase Vyvanse to 40 mg daily. B3. Provided another prescription for Ativan, which is rarely used. documented in this encounter Plan of Treatment Upcoming Encounters Date Type Specialty Care Team Description 12/16/2021 Appointment Infusion Therapy 04/15/2022 Office Visit Hematology and Oncology Poppy Felton, PAChuyC 111 [facility], Level [address] [place], [place] [phone] (Wo rk) 05/30/2022 Office Visit Surgical Oncology Asa Cameron MD [address] [place] [facility], [facility], Level [address] [place], [place] [phone] (Wo rk) documented as of this encounter Visit Diagnoses Diagnosis Depression - Primary Depressive disorder, not elsewhere class ified Attention deficit hyperactivity disorder (ADHD), unspecified ADHD type Malignant neoplasm of breast, unspecifie d laterality documented in this encounter Discontinued Medications Medication Sig Discontinue Reason Start Date End Date lisdexamfetamine Take 1 Cap by mouth Reorder 08/15/20140 07/2014 (VYVANSE) 30 mg every morning for 7 capsuleIndications: ADHD days Replacement (attention deficit prescription hyperactivity disorder) Earliest Fill Date: 08/15/14 Daily Max: 30 mg LORazepam (ATIVAN) 1 mg Take 1 Tab by mouth Reorder 04/19/2014 08/28/2014 tablet 2 times daily as needed for Anxiety (PMS) Daily Max: 2 mg lisdexamfetamine Take 1 Cap by mouth Reorder 08/28/[address] 07/2014 (VYVANSE) 40 mg every morning for 28 capsuleIndications: days Daily Max: 40 Attention deficit mg hyperactivity disorder (ADHD), unspecified ADHD type documented as of this encounter Historical Medications This list may reflect changes made after this encounter. Medication Sig Dispensed Refills Start Date End Date buPROPion (WELLBUTRIN XL) Take 150 mg by mouth 0 11/01/2015 300 mg XL tablet daily. added in this encounter Care Teams Meat Carver Relationship Specialty Start Date End Date Evert Perdomo MD PCP - General 10/13/08 05/13/16 108 [facility] 301 [place] [address] documented as of this encounter
--- OUTSIDE RECORDS SUMMARY | 2021-11-29 00:29 | XMS_ITS | Encounter Summary ---
:[address] [facility] Address [address] [place] [address] Care Team Providers Name Role Phone Evert Perdomo MD Primary Care Provider Reason for Visit Reason Onset Date Comments Other 07/28/2014 Encounter Details Date Type Department Care Team Description 07/28/2014 Telephone [facility] Adult Evert Perdomo MD Other Primary Care - [phone] [place] [phone] (Wo rk) Social History Tobacco Use Types [...] Notes Telephone Encounter - Charlotte Lynne - 07/28/2014 1305 EDT The patient called stating she is going to be moving back to [place] in a few weeks and her business office technician in [place] has recommended a D&C for abnormal bleeding. She states she cannot get in to have this done prior to leaving [place] and will need to have this done in [place]. She is requesting that her records be sent here for your review for the referral information. documented in this encounter Plan of Treatment Upcoming Encounters Date Type Specialty Care Team Description 12/16/2021 Appointment Infusion Therapy 04/15/2022 Office Visit Hematology and Oncology Poppy Felton PA-C [address] [phone] (Wo rk) 05/30/2022 Office Visit Surgical Oncology Asa Cameron MD [address] [phone] (Wo rk) documented as of this encounter Visit Diagnoses Not on filedocumented in this encounter Care Teams Engine Testing Supervisor Relationship Specialty Start Date End Date Evert Perdomo MD PCP - General 10/13/08 05/13/[address] [phone] documented as of this encounter
--- OUTSIDE RECORDS SUMMARY | 2021-11-29 00:29 | XMS_ITS | Encounter Summary ---
:1970 Author Organization [facility] Address [address] [place] [address] Care Team Providers Name Role Phone Evert Perdomo MD Primary Care Provider Reason for Visit Reason Onset Date Comments Appointment Related 10/09/2015 New Patient Visit 10/12/[address] Ester mathews 10/31/15 at 1:15 PM Encounter Details Date Type Department Care Team Description 10/09/2015 Telephone [facility] Jessi Pleitez MD PhD Appointment Related; Hematology & Oncology [address] [place] [address] New Patient Visit - [facility] (Scheduled with Dr. Lesly Zapata Level 2 [place] 10/31/15 at 1:15 [place] [address] [place], [place] PM) [phone] (Wo rk) Social History Tobacco Use [...] Notes Telephone Encounter - Marilou Castro - 10/15/2015 1456 EDT Welcome Letter, New Patient Evaluation form, and directions mailed to patient at home address. Telephone Encounter - Marilou Castro - 10/15/2015 1431 EDT Requested and received notes and imaging reports by fax from [place] medical oncologist Dr. Eugene Day at [facility]. elephone Encounter - Marilou Castro - 10/12/2015 1628 EDT Received call back from Paloma to schedule appointment with Dr. Pleitez. Scheduled new patient visit with Dr. Pleitez on Thursday10/31/15 at 1:15 PM. Asked patient to arrive at 1:00 PM. Patient has my direct number for any questions or for appointment changes. She did see a medical oncologist in [place], Dr. Eugene Day at the [facility] in [place], [place]. Will reach out for notes. Patient willing to sign ENRIQUETA form if needed; can be sentto her via email at [email or web address]. elephone Encounter - Marilou Castro - 10/11/2015 1240 EDT Called patient and left message asking for call back about setting up appointment with Dr. Pleitez; provided direct number for patient to call back. She is technically a new patient since last visit with Dr. Pleitez (06/09/12) was over 3 years ago[address] Cameron here in follow up on 02/12/15. Will need to know if patient received any treatment/imaging in [place] and where to request notes and discfrom; will also ask her to fill out new patient questionnaire again to provide any updates. Next NPVwith Dr. Pleitez is Thursday10/31/15 at 1:15 PM. elephone Encounter - Sharmila Damian - 10/09/2015 1637 EDT Patient would like to get scheduled for sooner appointment with Dr. Pleitez. Symptoms/Reason for visit: h/o Breast cancer, moved to [place] for 2 years, would like to re-establish care Timeframe: As soon as possible. Please call to schedule. Sharmila Damian 10/09/2015 16:38 documented in this encounter Plan of Treatment Upcoming Encounters Date Type Specialty Care Team Description 12/16/2021 Appointment Infusion Therapy 04/15/2022 Office Visit Hematology and Oncology Poppy Felton, SHAHAB [address] [phone] (Wo rk) 05/30/2022 Office Visit Surgical Oncology Asa Cameron MD [address] [phone] (Wo rk) documented as of this encounter Visit Diagnoses Not on filedocumented in this encounter Care Teams Floor Waxer Relationship Specialty Start Date End Date Evert Perdomo MD PCP - General 10/13/08 05/13/[address] [address] documented as of this encounter
--- OUTSIDE RECORDS SUMMARY | 2021-11-29 00:29 | XMS_ITS | Encounter Summary ---
:1970 Author Organization [facility] Address [address] [place] [address] Care Team Providers Name Role Phone Evert Perdomo MD Primary Care Provider Reason for Visit Reason Onset Date Comments Medication Management 03/31/2014 Encounter Details Date Type Department Care Team Description 03/31/2014 Telephone [facility] Evert Perdomo, [facility] ication Management Adult Primary Care - [address] [phone] (Wo rk) Social History Tobacco Use Types [...] Notes Telephone Encounter - Cristiane Bautista - 03/31/2014 1525 EST Pt called, I gave her Dr. Perdomo's msg below. She will talk w/her Oncologist. elephone Encounter - Cristiane Bautista - 03/31/2014 1405 EST Left msg for pt to call. elephone Encounter - Evert Perdomo MD - 03/31/2014 1341 EST It is strongly contraindicated with tamoxifen so I am reluctant to rx it. I know we talked about it but I am not comfortable. elephone Encounter - Cristiane Bautista - 03/31/2014 1029 EST Pt says she used to be on Wellbutrin XL, 300 mg, 1 daily, pt would like to start the med again. If ok please Rx to [facility] in [place]. I xpld I was not sure if Dr. Perdomo would start her at that high of a dose or if she would need to start at a lower dose & taper up. Pt says she talked w/Dr. Perdomo about this at her last appt on 02.22.14. Pt is only in town for the weekend, would like Rx before she leaves to go back to [place]. documented in this encounter Plan of Treatment Upcoming Encounters Date Type Specialty Care Team Description 12/16/2021 Appointment Infusion Therapy 04/15/2022 Office Visit Hematology and Oncology Poppy Felton PA-C 111 [facility], [facility] 2 [place], [place] [phone] (Wo rk) 05/30/2022 Office Visit Surgical Oncology Asa Cameron MD 111 [facility] 2 [place] [phone] (Wo rk) documented as of this encounter Visit Diagnoses Not on filedocumented in this encounter Care Teams Crankshaft Straightener Relationship Specialty Start Date End Date Evert Perdomo MD PCP - General 10/13/08 05/13/[address] [address] documented as of this encounter
--- OUTSIDE RECORDS SUMMARY | 2021-11-29 00:29 | XMS_ITS | Encounter Summary ---
:1970 Author Organization [facility] Address [address] [place] [address] Care Team Providers Name Role Phone vEert Perdomo MD Primary Care Provider Reason for Visit Reason Onset Date Comments Medications Refill 07/03/2015 Encounter Details Date Type Department Care Team Description 07/03/[address] [facility] Adult Evert Perdomo MD Medications Refill Primary Care - [phone] [place] [phone] (Wo rk) Social History Tobacco Use Types [...] Take 1 Cap by 90 Cap 0 201510/10/2015 40 mg capsule mouth every morning for 90 days. Earliest Fill Date: 07/29/15 Daily Max: 40 mg documented in this encounter Miscellaneous Notes Telephone Encounter - Elyssa Pal - 07/03/2015 1611 EDT Mailed to [facility]. elephone Encounter - Cristiane Bautista - 07/03/2015 1343 EDT MAIL TO [facility] Medication(s) requested: Vyvanse, 40 mg, 1 daily, #90, last refill 04.30.15 Is the pt out of the medication?: No Pharmacy: [facility] Last OV w/PCP: 01.02.15 Next OV w/PCP: Visit date not found Cristiane Bautista 07/03/2015 13:43 documented in this encounter Plan of Treatment Upcoming Encounters Date Type Specialty Care Team Description 12/16/2021 Appointment Infusion Therapy 04/15/2022 Office Visit Hematology and Oncology Poppy Felton PA-C [address] [facility] 2 [place], [place] [phone] (Wo rk) 05/30/2022 Office Visit Surgical Oncology Asa Cameron MD [address] [facility] 2 [place], [place] [phone] (Wo rk) documented as of this encounter Visit Diagnoses Not on filedocumented in this encounter Discontinued Medications Medication Sig Discontinue Reason Start Date End Date tamoxifen (NOLVADEX) 20 mg Take 1 Tab by Reorder 03/13/2015 07/03/2015 tablet mouth daily To cover until mail order received tamoxifen (NOLVADEX) 20 mg Take 1 Tab by Reorder 11/14/2014 07/03/2015 tablet mouth daily Waiting for mail order. lisdexamfetamine (VYVANSE) Take 1 Cap by Reorder 04/30/2015 07/03/2015 40 mg capsule mouth every morning for 90 days. Mail order Fill date 04-30-15 for start date of 05-07-15 Earliest Fill Date: 04/30/15 Daily Max: 40 mg documented as of this encounter Care Teams Glaze Supervisor Relationship Specialty Start Date End Date Evert Perdomo MD PCP - General 10/13/08 05/13/[address] [place] [phone] documented as of this encounter
--- OUTSIDE RECORDS SUMMARY | 2021-11-29 00:29 | XMS_ITS | Encounter Summary ---
:1970 Author Organization [facility] Address [address] [place] [address] Care Team Providers Name Role Phone Jimob Davey MD Primary Care Provider Reason for Referral (Routine) - Closed Specialty Diagnoses / Procedures Referred By Contact Refer red To Contact Marichuy Bernard MD [address] [place] [address] Referral ID Status Reason Start Date Expiration Date Visits V isits Requested Authorized [id number] Closed Specialty 10/03/2014 1 1 Services Required Comments Please call Dr. Neal's office to make a follow-up appointment with Nika Neal MD in 2 weeks. (Routine) - Closed Specialty Diagnoses / Procedures Referred By Contact Refer red To Contact Marichuy Bernard MD [address] [place] [phone] Referral ID Status Reason Start Date Expiration Date Visits V isits Requested Authorized [id number] Closed Specialty 10/03/2014 1 1 Services Required (Routine) - Closed Specialty Diagnoses / Procedures Referred By Contact Refer red To Contact Marichuy Bernard MD [address] [place] [phone] Referral ID Status Reason Start Date Expiration Date Visits V isits Requested Authorized [id number] Closed Specialty 10/03/2014 1 1 Services Required Comments Call 911 anytime you think you may need emergency care. For example, call if: - You passed out (lost consciousness). - You have severe trouble breathing. - You have sudden chest pain and shortne ss of breath, or you cough up blood. Call your doctor now or seek immediate m edical care if: - You have bright red vaginal bleeding t hat soaks one or more pads in an hour for two consecutive hours, or you have large reno ts. - You have foul-smelling discharge from your vagina. - You are sick to your stomach or cannot keep fluids down. - You have pain that does not get better after you take pain medicine. - You have loose stitches, or your incis ion comes open. - You have signs of infection, such as: - Increased pain, swelling, warmth, or r edness. - Red streaks leading from the incision. - Pus draining from the incision. - A fever greater than 100.4 degrees F ( 38 degrees C). - You have signs of a blood clot, such a s: - Pain in your calf, back of the knee, t high, or groin. - Redness and swelling in your leg or gr oin. - You have trouble passing urine or stoo l, especially if you have pain or swelling in your lower belly. Watch closely for changes in your health , and be sure to contact your doctor if: - You do not have a bowel movement after taking a laxative. - You have hot flashes, sweating, flushi ng, or a fast heartbeat, but no fever. Encounter Details Date Type Department Care Team Description 10/03/2014 Hospital Encounter [facility] Nika Neal, Perioperative Services- Main [place] [id number] [place] [address] [place] [phone] (Wo rk) Social History Tobacco Use [...] Sign Reading Time Taken Comments Blood Pressure 93/54 10/03/2014 1145 EDT Pulse - - Temperature 36.1 ??C (97 ??F) 10/03/2014 1145 EDT Respiratory Rate 16 10/03/2014 1145 EDT Oxygen Saturation 98% 10/03/2014 1145 EDT Inhaled Oxygen Concentration - - Weight 59.4 kg (131 lb) 09/19/2014 1046 EDT Height 167.6 cm (5' 6) 09/19/2014 1046 EDT Body Mass Index 21.14 09/19/2014 1046 EDT documented in this encounter Functional Status Cognitive Status Response Date of Assessment Because of a physical, mental, or emotional condition, do Ye s 08/15/2011 you have serious difficulty concentrating, remembering, or making decisions? (5 years old or older) documented as of this encounter Discharge Instructions MedicationsEladia Gupta RN - 10/03/2014 11:40 EDT Tylenol given in the OR at 1040. Can take again at 440 PM documented in this encounter Medications at Time of Discharge Medication Sig Dispensed Refills Start Date End Date buPROPion (WELLBUTRIN XL) Take 150 mg by mouth 0 11/01/2015 300 mg XL tablet daily. ibuprofen (MOTRIN) 600 mg Take 1 Tab by mouth 0 0 10/03/2014 12/20/2015 tablet every 6 hours as needed for Pain lisdexamfetamine Take 1 Cap by mouth 28 Cap 0 08/28/2014 10/11/2014 (VYVANSE) 40 mg every morning for 28 capsuleIndications: days Daily Max: 40 Attention deficit mg hyperactivity disorder (ADHD), unspecified ADHD type LORazepam (ATIVAN) 1 mg Take 1 Tab by mouth 30 Tab 0 07/201401/02/2015 tablet 2 times daily as needed for Anxiety (PMS) Daily Max: 2 mg tamoxifen (NOLVADEX) 20 Take 1 Tab by mouth 7 Tab 0 10/11/2014 mg tablet daily Replacement prescription. traZODone (DESYREL) 100 TAKE 1 TABLET AT 90 Tab 0 201411/01/2014 mg tablet BEDTIME documented as of this encounter Ordered Prescriptions Prescription Sig Dispensed Refills Start Date End Date ibuprofen (MOTRIN) 600 mg Take 1 Tab by mouth 0 0 10/03/2014 12/20/2015 tablet every 6 hours as needed for Pain documented in this encounter Discharge Disposition Disposition Code Departure Means Destination Home or Self Care documented in this encounter Progress Notes Marichuy Bernard MD - 10/03/2014 1058 EDT Brief Operative Note Date: 10/03/2014 Attending: Nika Neal MD Director Digital: None Pre-op diagnosis: Menometrorrhagia Post-op diagnosis: same Procedure: Hysteroscopy D&C Anesthesia: General with LMA Findings: Cavity sounded to 9 cm. Large amount of normal appearing endometrial tissue. Blood loss: minimal Fluids: 850cc LR Urine output: 30cc drained prior to procedure Specimens: EMC Drains/Packs/Foreign object retained: None Complications: None Condition: Good Disposition: PACU, then home See dictated operative report for more details Marichuy Bernard MD 10/03/2014 11:01 Action Installer PGY-1 Yolande Kumari RN - 10/03/2014 0910 EDT The Patient Declines testing for prior to the Surgery/ Procedure. The following were Explained to the Patient: ?? Testing is done to minimize the risk of potential adverse effects of Anesthesia/ Surgery on a developing fetus ?? It is a [facility] Policy to test all females who are having menstrual periods ?? It is for their safety and that of a developing fetus should they be ?? The Patient does have the right to decline and understands the risks of not obtaining the test The Surgeon and Anesthesiologist were notified. Matthew miller RN - 09/19/2014 1045 EDT Jia Dow has been instructed as follows regarding medication administration for the day of the scheduled procedure. Date of Surgery: 10/03/14 Instructions for Taking Medications Day of Surgery Medication Sig Last Dose Hold DOS Take DOS buPROPion (WELLBUTRIN XL) 300 mg XL tablet Take 300 mg by mouth every 48 hours X lisdexamfetamine (VYVANSE) 40 mg capsule Take 1 Cap by mouth every morning for 28 days Daily Max: 40mg X LORazepam (ATIVAN) 1 mg tablet Take 1 Tab by mouth 2 times daily as needed for Anxiety (PMS) Daily Max: 2 mg PRN tamoxifen (NOLVADEX) 20 mg tablet Take 1 Tab by mouth daily Replacement prescription. X traZODone (DESYREL) 100 mg tablet TAKE 1 TABLET AT BEDTIME HS \ documented in this encounter H&P Notes Nika Neal MD - 10/03/2014 0979 EDT In reviewing the chart, I see Jia Dow had a Pre-surgical History & Physical completed within the last 30 days. The following is a copy of that H&P note from the encounter associated with the physical. The note has been copied for review and update purposes within the scheduled perioperative encounter. Nika Neal MD 10/03/2014 9:19 documented in this encounter OR Notes OR Surgeon - Nika Neal MD - 10/10/2014 7769 EDT OPERATIVE REPORT SERVICE DATE: 10/03/2014 PREOPERATIVE DIAGNOSIS: Menometrorrhagia. POSTOPERATIVE DIAGNOSIS: Menometrorrhagia. SURGEON: Nika Neal MD FACILITY SERVICE ASSOCIATE: ANESTHESIA: General. PROCEDURE: Exam under anesthesia, diagnostic hysteroscopy, dilatation and curettage. COMPLICATIONS: None. ESTIMATED BLOOD LOSS: Minimal. SPECIMENS: Endometrial curettings. INDICATIONS: The patient is a 44-year-old 2, para 2-0-0-2 white female who is currently on tamoxifen for estrogen positive breast cancer. She developed menometrorrhagia and on ultrasound had a thickened and irregular endometrial lining. Because of tamoxifen therapy, she is here for a D+C to rule out any abnormal endometrial tissue. FINDINGS: On exam under anesthesia, the uterus was small, retroverted and mobile. On diagnostic hysteroscopy, there was a moderate to large amount of normal-appearing endometrial tissue. The patient's last menstrual period was 09/09/2014. On dilatation and curettage, moderate amount of normal-appearing endometrial tissue was obtained and submitted to pathology. NARRATIVE: After adequate anesthesia was obtained, and the OR protocol was followed, the patient wasplaced in the dorsolithotomy position and prepped and draped in the normal sterile fashion. She was in and out catheterized for 30 mL of clear urine. A weighted speculum was placed in the vagina and a tenaculum was placed on the anterior lip of the cervix. The uterus was measured with a uterine sound and was found to be 9 cm. The cervical os was dilated to a #7 Hegar Mccloud dilator. The hysteroscope was inserted within the uterine cavity and the findings are as described above. Both tubal ostia were observed. The hysteroscope was removed and a small serrated curette was placed within the uterine cavity and the endometrial curettings were obtained and submitted to pathology. At completion of the procedure, the lining of the uterus felt smooth and symmetrical, and there were no irregularities observed or detected. The tenaculum was removed from the cervix and hemostasis was adequate. The weighted speculum was removed from the vagina and the patient was returned to the supine position, extubated and taken to the recovery room in good condition. Unless otherwise noted, there were no complications, no blood loss, no cultures obtained, no specimens removed, and no drains retained. Nika Neal MD 03 40 PM / Nika Neal MD pn Confirmation: [id number] Dictation ID: [id number] cc:Nika Neal MD documented in this encounter Miscellaneous Notes Anesthesia Post-Eval - My Cooley CRNA - 10/03/2014 1151 EDT Post Anesthesia Evaluation Note Date of Service: 10/03/2014 Jia Dow, a 44 y.o. year old female has received General Anesthesia today. She has been evaluated, assessed and discharged from anesthesia care with stable cardiorespiratory function and alert mental status. The last set of recorded vital signs and pain rating were reviewed: Temp: 36.1 ??C (97 ??F) (10/03/14 1145), Heart Rate: 54 BPM (10/03/14 1145), BP: 96/56 mmHg (10/03/14 1130), Resp: 16 (10/03/14 1145), SpO2: 98 % (10/03/14 1145),Numeric Pain Level (Scale 1-10): 0 Jia Dow participated in this evaluation unless otherwise noted. Her pain, nausea and vomiting have been managed and her body temperature and fluid balance have been restored. Additional monitoring and assessment needs have been addressed. If present, any postoperative events are documented below. My Cooley CRNA 10/03/2014 11:51 nesthesia Post-Eval - Lupillo Munoz MD - 10/03/2014 1142 EDT Post Anesthesia Evaluation Note Date of Service: 10/03/2014 Jia Dow, a 44 y.o. year old female has received General Anesthesia today. She has been evaluated, assessed and discharged from anesthesia care with stable cardiorespiratory function and alert mental status. The last set of recorded vital signs and pain rating were reviewed: Temp: 36.6 ??C (97.9 ??F) (10/03/14 1111), Heart Rate: 64 BPM (10/03/14 1130), BP: 96/56 mmHg (10/03/14 1130), Resp: 21 (10/03/14 1130), SpO2: 100 % (10/03/14 1130),Numeric Pain Level (Scale 1-10): 0 Jia Dow participated in this evaluation unless otherwise noted. Her pain, nausea and vomiting have been managed and her body temperature and fluid balance have been restored. Additional monitoring and assessment needs have been addressed. If present, any postoperative events are documented below. Lupillo Munoz MD 10/03/2014 11:42 documented in this encounter Plan of Treatment Upcoming Encounters Date Type Specialty Care Team Description 12/16/2021 Appointment Infusion Therapy 04/15/2022 Office Visit Hematology and Oncology Poppy Felton PA-C [address] [phone] (Wo rk) 05/30/2022 Office Visit Surgical Oncology Asa Cameron MD [address] [phone] (Wo rk) Scheduled Referrals Name Type Priority Associated Order Schedule Diagnoses PROVIDER FOLLOW-UP Outpatient Referral Routine Or dered: INSTRUCTIONS 10/03/2014 PROVIDER FOLLOW-UP Outpatient Referral Routine Or dered: INSTRUCTIONS 10/03/2014 PROVIDER FOLLOW-UP Outpatient Referral Routine Or dered: INSTRUCTIONS 10/03/2014 documented as of this encounter Procedures Procedure Name Priority Date/Time Associated Diagnosis Comme nts ECG REPORT - 10/07/2014 17:43 SCANNED EDT SURGICAL PATHOLOGY Routine 10/03/2014 13:29 Resul ts for this EDT procedure are i n the results section. documented in this encounter Results SURGICAL PATHOLOGY (10/03/2014 13:29 EDT) Pathology Report: SURGICAL PATHOLOGY REPORT [facility] Reports generated via electronic interface conta in original data; [facility] however they are lacking the format of the original re port. SERVICES Caution should be taken when reading/interpreting unfo rmatted reports. Name: ? JIA DOW ? Accession #: ? [id number] ? : ? 1970 (Age: 6 2) ??F ? Collect Date: ? 10/03/2014 ? Location: ? [facility] ? Receive Date: ? 015 ? Provider: NIKA NEAL MD Copy to: JIMBO DAVEY MD ? Final Pathologic Diagnosis: ENDOMETRIUM, CURETTAGE: - ??Late secretory-type endometrium. - ??Squamous epithelium with no specific histopatholog ic features. Document reviewed and electronically signed by: Marita Rodrigez MD Report ??Date: 10/06/2014 08:37 By the signature above, the attending physician certif ies that he/she has personally conducted a gross and/or microscopic examin ation of the described specimens and rendered or confirmed the above diagnosi s. Specimen(s) Received: EMC Clinical History: Menometrorrhagia Gross Description: ? Received in normal saline labelled with proper patient identification (initials S, A) and EMC is an aggregate of aguirre -pink tissue (3.5 x 2.8 x 0.6 cm). The specimen is submitted entirely in 1-3. 10/03/2014 3:24 PM End of Report Specimen Performing Organization Address City/State/ZIP Code Phon e Number [facility] [address] [place] [address] SERVICES documented in this encounter Visit Diagnoses Not on filedocumented in this encounter Administered Medications Inactive Administered Medications - up to 3 most recent administrations Medication Order MAR Action Action Date Dose Rate Site lactated ringers (LR) infusion New Bag 10/03/2014 9:24 EDT 25 mL/hr at 25 mL/hr, intravenous, CONTINUOUS, Starting on Thu10/03/14 at 0945, Until Thu10/03/14 at 1413, Routine, Pre Op Day of Surgery documented in this encounter Discontinued Medications Medication Sig Discontinue Reason Start Date End Date Cholecalciferol, Vitamin Take 800 Units by Patient Stopped Taking 09/19/2014 D3, 400 unit tablet mouth daily. FEXOFENADINE HCL Take by mouth as Patient Stopped Taking 09/19/2014 ([facility] ORAL) needed. [place]-3 Fatty Take by mouth. Patient Stopped Taking Acids-Vitamin E (FISH OIL) 1,000 mg capsule documented as of this encounter Active and Recently Administered Medications Times are shown in EDT. Continuous Medication Order 10/01/2014 10/02/2014 10/03/2014 lactated ringers (LR) infusion (CANCELED) 0924 (New Bag - Provider: China Souza RN) at 25 mL/hr, intravenous, CONTINUOUS, St arting Thu10/03/14 at 0945, Until Thu10/03/14 at 1413, Routine documented in this encounter Orders Medications Ordered That Might Not Have Count Last Ord ered Date First Ordered Date Been Administered atropine 0.1 mg/mL syringe 0.5 mg 1 10/03/2014 diphenhydrAMINE (BENADRYL) injection 6.25 1 2014 mg fentaNYL citrate (PF) 50 mcg/mL injection 1 2014 25-100 mcg HYDROmorphone (DILAUDID) tablet 2 mg 1 10/03/2014 lactated ringers (LR) infusion 1 10/03/2014 metoCLOPramide (REGLAN) injection 10 mg 1 10/04/19 15 nalOXone (NARCAN) injection 0.2 mg 1 10/03/2014 ondansetron (PF) (ZOFRAN) injection 2 mg 1 015 Procedures Count Last Ordered Date First Ordered Date ECG REPORT - SCANNED 1 10/07/2014 Nursing Count Last Ordered Date First Ordered Date ACTIVITY INSTRUCTIONS 1 10/03/[address] SEQUENTIAL COMPRESSION DEVICE 1 10/03/2014 Transfer Count Last Ordered Date First Ordered Date NOTIFY PPS PACU PATIENT DISCHARGE 1 10/03/2014 NOTIFY PPS PATIENT ARRIVAL IN PACU 1 10/03/2014 Discharge Count Last Ordered Date First Ordered Date DISCHARGE PATIENT 1 10/03/2014 documented in this encounter Care Teams Physician Scientist Relationship Specialty Start Date End Date Jimbo Davey MD PCP - General 10/13/08 05/13/[address] [address] documented as of this encounter
--- OUTSIDE RECORDS SUMMARY | 2021-11-29 00:29 | XMS_ITS | Encounter Summary ---
:1970 Author Organization [facility] Address [address] [place] [address] Care Team Providers Name Role Phone Evert Perdomo MD Primary Care Provider Reason for Visit Reason Onset Date Comments Medications Refill 03/13/2015 Encounter Details Date Type Department Care Team Description 03/13/2015 Refill [facility] Adult Evert Perdomo MD Medications Refill Primary Care - [address] [address] [phone] (Wo rk) Social History Tobacco Use Types [...] 30 Tab 0 07/03/2015 mg tablet daily To cover until mail order received documented in this encounter Miscellaneous Notes Telephone Encounter - Cristiane Bautista - 03/13/2015 6759 EST Medication(s) requested: Tamoxifen, 20 mg, 1 daily, #30, last refill 11.15.14 Is the pt out of the medication?: Yes Pharmacy: [facility] - please also see request for mail order as well Last OV w/PCP: 01.02.15 Next OV w/PCP: Visit date not found Cristiane Bautista 03/13/2015 15:57 documented in this encounter Plan of Treatment Upcoming Encounters Date Type Specialty Care Team Description 12/16/2021 Appointment Infusion Therapy 04/15/2022 Office Visit Hematology and Oncology Poppy Felton PA-C [address] [phone] (Wo rk) 05/30/2022 Office Visit Surgical Oncology Asa Cameron MD [address] [phone] (Wo rk) documented as of this encounter Visit Diagnoses Not on filedocumented in this encounter Discontinued Medications Medication Sig Discontinue Reason Start Date End Date tamoxifen (NOLVADEX) 20 Take 1 Tab by mouth Reorder 11/15/2014 03/13/2015 mg tablet daily To cover until mail order received documented as of this encounter Care Teams Marketing Communications Specialist Relationship Specialty Start Date End Date Evert Perdomo MD PCP - General 10/13/08 05/13/[address] [place] [phone] documented as of this encounter
--- OUTSIDE RECORDS SUMMARY | 2021-11-29 00:29 | XMS_ITS | Encounter Summary ---
:1970 Author Organization [facility] Address [address] [place] [address] Care Team Providers Name Role Phone Evert Perdomo MD Primary Care Provider Reason for Visit Reason Onset Date Comments Appointment Related 02/01/2015 Encounter Details Date Type Department Care Team Description 02/01/2015 Telephone [facility] Asa Caemron MD Appointment Related Surgical Oncology - [address] [place] [address], [address], [address] [place], [place] [id number] [place] [address] [phone] (Wo rk) Social History Tobacco Use [...] Notes Telephone Encounter - Mine Chavez - 02/05/2015 1300 EST Called Jia and told her that Dr. Cameron is ok with seeing her after her tattooing with Plastics. She is coming in on 02/12. elephone Encounter - Angelo Chaveza - 02/01/2015 1356 EST Called patient and she is getting tattooed from plastics on 02/09 wants to make sure that it's stillok to see Dr. Cameron. I talked to Mary Carmen Hilton and she didn't think it would be a problem but I willtalk to and make sure he is ok with this. Telephone Encounter - Lucero Walsh - 02/01/2015 1312 EST Reason for Call: Appointment Related Summary/Symptoms: Pt needs to reschedule 02-12 Rakesh appt. Please call Lucero Walsh 02/01/2015 13:12 documented in this encounter Plan of Treatment Upcoming Encounters Date Type Specialty Care Team Description 12/16/2021 Appointment Infusion Therapy 04/15/2022 Office Visit Hematology and Oncology Poppy Felton PA-C [address] [phone] (Wo rk) 05/30/2022 Office Visit Surgical Oncology Asa Cameron MD [address] [phone] (Wo rk) documented as of this encounter Visit Diagnoses Not on filedocumented in this encounter Care Teams Motor Vehicle Parts Interpreter Relationship Specialty Start Date End Date Evert Perdomo MD PCP - General 10/13/08 05/13/[address] [address] documented as of this encounter
--- OUTSIDE RECORDS SUMMARY | 2021-11-29 00:29 | XMS_ITS | Encounter Summary ---
:1970 Author Organization [facility] Address [address] [place] [address] Care Team Providers Name Role Phone Evert Perdomo MD Primary Care Provider Reason for Visit Reason Onset Date Comments Medications Refill 04/11/2015 Encounter Details Date Type Department Care Team Description 04/11/[address] [facility] Adult Evert Perdomo MD Medications Refill Primary Care - [address] [address] [phone] (Wo rk) Social History Tobacco Use Types [...] TAKE 1 TABLET AT 90 Tab 1 201510/09/2015 mg tablet BEDTIME documented in this encounter Miscellaneous Notes Addendum Note - Lucero Sadler RN - 04/11/2015 1538 EST Addended by: LUCERO SADLER. on: 04/11/2015 15:38 Modules accepted: Orders Telephone Encounter - Lucero Sadler RN - 04/11/2015 1537 EST Last OV [id number] signed by Lucero Sadler, RN at 04/11/2015 15:37 ESTTelephone Encounter - Lucero Sadler RN - 04/11/2015 1536 EST From: Jia Dow To: Evert Perdomo MD Sent: 04/11/2015 0:50 EST Subject: Medication Renewal Request Original authorizing provider: MD Jia Ellis would like a refill of the following medications: traZODone (DESYREL) 100 mg tablet [Evert Perdomo MD] [facility] [place] [place] [facility] [address] [facility] Comment: 90 day supply, please documented in this encounter Plan of Treatment Upcoming Encounters Date Type Specialty Care Team Description 12/16/2021 Appointment Infusion Therapy 04/15/2022 Office Visit Hematology and Oncology Poppy Felton, SHAHAB [address] [facility], [address] [place], [place] [phone] (Wo rk) 05/30/2022 Office Visit Surgical Oncology Asa Cameron MD 111 [facility], [facility] [address] [place] [phone] (Wo rk) documented as of this encounter Visit Diagnoses Not on filedocumented in this encounter Discontinued Medications Medication Sig Discontinue Reason Start Date End Date traZODone (DESYREL) 100 TAKE 1 TABLET AT Reorder 11/01/2014 04/11/2015 mg tablet BEDTIME documented as of this encounter Care Teams Cosmetologist Relationship Specialty Start Date End Date Evert Perdomo MD PCP - General 10/13/08 05/13/[address] [address] documented as of this encounter
--- OUTSIDE RECORDS SUMMARY | 2021-11-29 00:30 | XMS_ITS | Encounter Summary ---
:1970 Author Organization [facility] Address [address] [place] [address] Care Team Providers Name Role Phone Evert Perdomo MD Primary Care Provider Philip Schulz MD Primary Care Provider Jia Minor PA-C Primary Care Provider Unavailable Filomena Ochoa PA-C Primary Care Provider [phone] Reason for Visit Reason Onset Date Comments Appointment Related 02/08/2014 cancel 02/10 Encounter Details Date Type Department Care Team Description 02/08/2014 Telephone [facility] Asa Cameron MD Appointment Related Surgical Oncology - [address] [place] [address] (cancel 02/10) [facility], [address] [place] [address] [place] [phone] (Wo rk) Social History Tobacco Use [...] Notes Telephone Encounter - Nelly Floyd - 02/08/2014 1544 EST Spoke with patient she is rescheduled to 02/20/14 @ 12:45pm with Dr. Cameron. elephone Encounter - Cristobal Bella - 02/08/2014 1400 EST Please call pt to reschedule 02/10 appt. Pt still out of town 02/10. High priority due to pt's limited time frame documented in this encounter Plan of Treatment Upcoming Encounters Date Type Specialty Care Team Description 12/16/2021 Appointment Infusion Therapy 04/15/2022 Office Visit Hematology and Oncology Poppy Felton, SHAHAB [address] [phone] (Wo rk) 05/30/2022 Office Visit Surgical Oncology Asa Cameron MD [address] [phone] (Wo rk) documented as of this encounter Visit Diagnoses Not on filedocumented in this encounter Additional Health Concerns Infection Onset Date Last Indicated Resolved Time R/O COVID-19 10/16/2019 10/16/2019 10/21/2019 22:15 EDT documented as of this encounter Care Teams Film Technician Relationship Specialty Start Date End Date Evert Perdomo MD PCP - General 10/13/08 05/13/[address] [address] Philip Schulz MD PCP - General 05/14/16 12/06/[address] [place] [address] [place] [address] Jia iMnor PA-C PCP - General 12/07/1703/01/18 Filomena Ochoa PA-C PCP - General 03/02/18 [address] [place] [phone] documented as of this encounter
--- OUTSIDE RECORDS SUMMARY | 2021-11-29 00:30 | XMS_ITS | Encounter Summary ---
:1970 Author Organization [facility] Address [address] [place] [address] Care Team Providers Name Role Phone Evert Perdomo MD Primary Care Provider Reason for Visit Reason Onset Date Comments Appointment Related 01/23/2014 Encounter Details Date Type Department Care Team Description 01/23/2014 Telephone [facility] Asa Cameron MD Appointment Related [facility] - [address] [place] [address], [address], [address] [place], [place] [address] [place] [address] [phone] (Wo rk) Social History Tobacco Use [...] Notes Telephone Encounter - Nelly Floyd - 01/24/2014 0951 EST Spoke with patient she is scheduled for 02/10/14 @ 4:45pm with Dr. Cameron. elephone Encounter - Magalys Ventura - 01/23/2014 1611 EST Patient called to schedule a follow-up with Dr. Cameron. Will be in [place] from 02/10 thru 02/22. (currently living in [place]) documented in this encounter Plan of Treatment Upcoming Encounters Date Type Specialty Care Team Description 12/16/2021 Appointment Infusion Therapy 04/15/2022 Office Visit Hematology and Oncology Poppy Felton, PAChuyC 111 [facility] 2 [place], [place] [phone] (Wo rk) 05/30/2022 Office Visit Surgical Oncology Asa Cameron MD 111 [facility] 2 [place], [place] [phone] (Wo rk) documented as of this encounter Visit Diagnoses Not on filedocumented in this encounter Care Teams Lining Baster Relationship Specialty Start Date End Date Evert Perdomo MD PCP - General 10/13/08 05/13/[address] [address] documented as of this encounter
--- OUTSIDE RECORDS SUMMARY | 2021-11-29 00:30 | XMS_ITS | Encounter Summary ---
:[address] [facility] Address [address] [place] [address] Care Team Providers Name Role Phone Evert Perdomo MD Primary Care Provider Reason for Visit Reason Onset Date Comments Medications Refill 03/31/2014 Encounter Details Date Type Department Care Team Description 03/31/2014 Refill [facility] Adult Evert Perdomo MD Medications Refill Primary Care - [address] [address] [phone] (Wo rk) Social History Tobacco Use Types [...] Take 1 Cap by 90 Cap 0 201407/13/2014 30 mg capsuleIndications: mouth every ADHD (attention deficit morning for 90 hyperactivity disorder) days Earliest Fill Date: 04/12/14 Daily Max: 30 mg lisdexamfetamine (VYVANSE) Take 1 Cap by 90 Cap 0 201404/12/2014 30 mg capsule mouth every morning for 90 days. Earliest Fill Date: 03/31/14 documented in this encounter Miscellaneous Notes Telephone Encounter - Audelia Martínez - 04/14/2014 1235 EST Script mailed to [facility]. Mailed out Thursday04/17/14. ddendum Note - Tatum Navarro - 04/12/2014 1403 EST Addended by: TATUM NAVARRO on: 04/12/2014 14:03 Modules accepted: Orders, Medications elephone Encounter - Tatum Navarro - 04/12/2014 1337 EST 1) Outgoing phone call to [facility]: [phone] Confirmed with [facility] professional healthcare representative that as of today they have NOT received printed rx for lisdexamphetamine (Vyvanse), and it is not in their system for this patient (nevere received rx, never filled). Tatum Navarro RN 2) Pended new Vyvanse order, will forward to provider for review. Patient would like this rx mailed to a different, local pharmacy so that she can get this medication: [address] [address] Will forward to provider for review. Tatum Navarro RN elephone Encounter - Cristiane Bautista - 04/12/2014 1323 EST Pt called today, she says [facility] has not rec'd the script that we mailed to them yet. She says they told her that when they rec it that it will be two weeks before they ship it out. Pt wants to know if a 30 day script can be mailed to her pharmacy in [place]. If ok mail script to [facility] in [place]If it is done pt would like it mailed out in tomorrow's mail. elephone Encounter - Mamta Mayorga - 04/03/2014 1324 EST Mailed to [facility] Mail order elephone Encounter - Melanie Oconnor RN - 03/31/2014 1050 EST Last prescription was 09/20- 12/19, #90. New order is pended. elephone Encounter - Cristiane Bautista - 03/31/2014 1026 EST Medication(s) requested: Vyvanse, 30 mg, 1 daily, #90, last refill 09.20.13 Is the pt out of the medication?: Pharmacy: [facility] Last OV w/PCP: 02.22.14 Next OV w/PCP: Visit date not found Cristiane Bautista 03/31/2014 10:26 documented in this encounter Plan of Treatment Upcoming Encounters Date Type Specialty Care Team Description 12/16/2021 Appointment Infusion Therapy 04/15/2022 Office Visit Hematology and Oncology Poppy Felton PA-C 111 [facility] venue [facility], [address] [place], [place] [phone] (Wo rk) 05/30/2022 Office Visit Surgical Oncology Asa Cameron MD [address] [place] [facility] venue [facility], [facility] 2 [place], [place] [phone] (Wo rk) documented as of this encounter Visit Diagnoses Diagnosis ADHD (attention deficit hyperactivity di sorder) - Primary Attention deficit disorder with hyperact ivity documented in this encounter Discontinued Medications Medication Sig Discontinue Reason Start Date End Date lisdexamfetamine (VYVANSE) Take 30 mg by Reorder 03/31/2014 30 mg capsule mouth every morning. lisdexamfetamine (VYVANSE) Take 1 Cap by Reorder 03/31/2014 04/12/2014 30 mg capsule mouth every morning for 90 days. Earliest Fill Date: 03/31/14 documented as of this encounter Care Teams Core Stripper Relationship Specialty Start Date End Date Evert Perdomo MD PCP - General 10/13/08 05/13/[address] [address] documented as of this encounter
--- OUTSIDE RECORDS SUMMARY | 2021-11-29 00:30 | XMS_ITS | Encounter Summary ---
:[address] [facility] Address [address] [place] [address] Care Team Providers Name Role Phone Evert Perdomo MD Primary Care Provider Reason for Visit Reason Comments Depression 6 mo f/u Encounter Details Date Type Department Care Team Description 08/11/2012 Office Visit [facility] Evert Perdomo (Primary Dx); Adult Primary Care - MD Teo ADHD (attention deficit hyperactivity di sorder); [address] [place] [address] [address] [phone] Social History Tobacco Use Types Packs/Day Years [...] Sign Reading Time Taken Comments Blood Pressure 98/60 08/11/2012 1636 EDT Pulse 60 08/11/2012 1636 EDT Temperature 37.4 ??C (99.4 ??F) 08/11/2012 1636 EDT Respiratory Rate 16 08/11/2012 1636 EDT Oxygen Saturation - - Inhaled Oxygen Concentration - - Weight 62.6 kg (138 lb) 08/11/2012 1636 EDT Height 170.2 cm (5' 7) 08/11/2012 1636 EDT Body Mass Index 21.61 08/11/2012 1636 EDT documented in this encounter Functional Status Cognitive Status Response Date of Assessment Because of a physical, mental, or emotional condition, do Ye s 08/15/2011 you have serious difficulty concentrating, remembering, or making decisions? (5 years old or older) documented as of this encounter Discharge Disposition Disposition Code Departure Means Destination Auto Discharge documented in this encounter Progress Notes Evert Perdomo MD - 08/11/2012 1710 EDT PROBLEM: ADHD. PROBLEM: Depression. PROBLEM: Anxiety. PROBLEM: Adenocarcinoma, right breast. SUBJECTIVE: The patient will be moving to [place] for a year and is to touch [facility]. She continues tohave regular visits with our surgical and medical oncologists. She continues on tamoxifen and has had improvement in hot flashes and significantly no longer has PMS symptoms because of the medication. She is unable to be on Wellbutrin and during the winter felt like she would benefit from that but once the days became longer, she has been feeling wonderful and she reports herself as great today. She remains on a small dose of trazodone for sleep at bedtime and on her Vyvanse for ADHD. She recentlyhad some reconstructive surgery for her mastectomy sites and has had a little bit of orthostatic lightheadedness since then, but otherwise, no other new symptoms. OBJECTIVE: Weight stable 138, pulse 60 and regular, blood pressure 98/60. The patient looks well andis bright and cheerful. Neck without mass. Lungs clear. Heart regular. Abdomen benign. Extremities: No edema. ASSESSMENT: 1. Breast cancer-on tamoxifen therapy and doing well at this point in time. 2. Attention-deficit hyperactivity disorder-stable on current therapy. 3. Depression-while worse in the winter, has certainly improved significantly and is doing well on much less therapy than previously. 4. Anxiety-no longer using lorazepam. 5. Premenstrual syndrome-resolved with tamoxifen. PLAN: A. Return in 1 year assuming she is back in the state by that time. B1. Continue trazodone and Vyvanse therapy as her only medications at this time other than allergy medications. Her will be traveling back and forth to [place] and may be able to help with the every 3 month control of prescriptions. Otherwise, she will need to seek care locally in [place]. documented in this encounter Plan of Treatment Upcoming Encounters Date Type Specialty Care Team Description 12/16/2021 Appointment Infusion Therapy 04/15/2022 Office Visit Hematology and Oncology Poppy Felton, PAChuyC [address] [phone] (Wo rk) 05/30/2022 Office Visit Surgical Oncology Asa Cameron MD [address] [phone] (Wo rk) documented as of this encounter Results LIPID PROFILE (INCLUDES CHOLESTEROL, TRIGLYCERIDES, HDL, LDL) (08/19/2012 13:26 EDT) [facility] Signature Cholesterol 164 mg/dl [facility] Comment: Desirable:<200 Borderline High:200-239 High:>yb=409 Triglycerides 40 mg/dl [facility] Comment: Normal:<150 Borderline High:150-199 High:200-499 Very High:>kk=255 HDL 79 mg/dl [facility] Comment: Low:<40 Normal:40-60 Desirable: >60 LDL, Calculated 77 mg/dl [facility] Comment: Optimal:<100 Near Optimal:100-129 Borderline High:130-159 High:160-189 Very High:>wd=521 Chol/HDL Ratio 2.1 [facility] Fasting? Unknown [facility] Specimen Blood specimen (specimen) Performing Organization Address City/State/ZIP Code Phon e Number [facility] [address] [place] [address] SERVICES [facility] [address] [place] [address] documented in this encounter Visit Diagnoses Diagnosis Depression - Primary Depressive disorder, not elsewhere class ified ADHD (attention deficit hyperactivity di sorder) Attention deficit disorder with hyperact ivity Healthcare maintenance Routine general medical examination at a health care facility documented in this encounter Care Teams Cloth Brushing And Sueding Supervisor Relationship Specialty Start Date End Date Evert Perdomo MD PCP - General 10/13/08 05/13/16 [address] [place] [address] documented as of this encounter
--- OUTSIDE RECORDS SUMMARY | 2021-11-29 00:30 | XMS_ITS | Encounter Summary ---
:1970 Author Organization [facility] Address [address] [place] [address] Care Team Providers Name Role Phone Evert Perdomo MD Primary Care Provider Reason for Visit Reason Onset Date Comments Suture / Staple Removal 08/05/2012 Encounter Details Date Type Department Care Team Description 08/05/2012 Telephone [facility] Asa Cameron MD Suture / Staple Surgical Oncology - [address] [facility] [address] Removal [facility], [address], [address] [place], [place] [address] [place] [address] [phone] (Wo rk) Social History Tobacco Use [...] this encounter Miscellaneous Notes Telephone Encounter - Nicolle Hilton, RN - 08/05/2012 1340 EDT Spoke with Elyssa. Dr. Cameron stated he would take out her sutures at her visit on 08/17. Telephone Encounter - Eli Driscoll - 08/05/2012 1233 EDT Patient is requesting a call back. Per patient, she had nipple reconstruction surgery done today (08.05.12) at [facility] [place] and she would like to know if Dr. Cameron could remove the stitches from this at her 08.17.12 appointment with him. documented in this encounter Plan of Treatment Upcoming Encounters Date Type Specialty Care Team Description 12/16/2021 Appointment Infusion Therapy 04/15/2022 Office Visit Hematology and Oncology Poppy Felton PA-C [address] [facility], [facility] 2 [place], [place] [phone] (Wo rk) 05/30/2022 Office Visit Surgical Oncology Asa Cameron MD [address] [facility], [facility] 2 [place] [phone] (Wo rk) documented as of this encounter Visit Diagnoses Not on filedocumented in this encounter Care Teams Cement Or Concrete Finishing Supervisor Relationship Specialty Start Date End Date Evert Perdomo MD PCP - General 10/13/08 05/13/[address] [place] [address] documented as of this encounter
--- OUTSIDE RECORDS SUMMARY | 2021-11-29 00:30 | XMS_ITS | Encounter Summary ---
:1970 Author Organization [facility] Address [address] [place] [address] Care Team Providers Name Role Phone Evert Perdomo MD Primary Care Provider Reason for Visit Reason Onset Date Comments Medication Management 01/02/2014 Encounter Details Date Type Department Care Team Description 01/02/2014 Telephone [facility] Evert Perdomo, [facility] ication Management Adult Primary Care - [address] [phone] (Wo rk) Social History Tobacco Use Types [...] Telephone Encounter - Melanie Oconnor RN - 01/03/2014 0851 EST Spoke with mail order pharmacy and start date of prescription changed to today. elephone Encounter - Filomena Ochoa PA - 01/02/2014 1659 EST OK to change start date to 01/02/14. elephone Encounter - Melanie Oconnor RN - 01/02/2014 1241 EST Received call from mail order pharmacist Emer[facility]. *see 09/20 refill encounter. Apparently they did receive the first of the prescriptions for Vyvanse and did not need it to be redone. They filled the prescription with start date of 09/12 on 09/21. It was a 90 day supply. Now pt hassupplied them with the second prescption with start date 09/20 and end date 12/19, #90 and would likethis filled. Pharmacy is calling b/c it is older than 30 days and they would need permission to fillit at this time. They will need a call back at [phone] with either permission to change the start date to today so they can fill it or instructions to return outdated script to pt. Ok to change start date on this to today? elephone Encounter - Cristiane Bautista - 01/02/2014 1241 EST Freida, pharmacy technician trainee from [facility], called regarding the Vyanse script that was done for this pt inJuly. They just rec'd it in the mail, the script is now outdated, they want to know if they can havepermission to change the date to current so they can fill the script. documented in this encounter Plan of Treatment Upcoming Encounters Date Type Specialty Care Team Description 12/16/2021 Appointment Infusion Therapy 04/15/2022 Office Visit Hematology and Oncology Poppy Felton, PAChuyC [address] [phone] (Wo rk) 05/30/2022 Office Visit Surgical Oncology Asa Cameron MD [address] [phone] (Wo rk) documented as of this encounter Visit Diagnoses Not on filedocumented in this encounter Care Teams Rail Grinder Relationship Specialty Start Date End Date Evert Perdomo MD PCP - General 10/13/08 05/13/[address] [address] documented as of this encounter
--- OUTSIDE RECORDS SUMMARY | 2021-11-29 00:30 | XMS_ITS | Encounter Summary ---
:1970 Author Organization [facility] Address [address] [place] [address] Care Team Providers Name Role Phone Evert Perdomo MD Primary Care Provider Reason for Visit Reason Comments Follow-up Encounter Details Date Type Department Care Team Description 06/09/2012 Office Visit [facility] Jessi lPeitez MD Breas t cancer ([facility]- HCC) (Primary Dx); Hematology & PhD Malignant neoplasm of breast ([facility]-HCC); Oncology - Main [address] [place] [address] ADHD (atte ntion deficit hyperactivity disorder); [address] Depression [address] [place] [address] Pavilion, [place] [phone] (Wo rk) Social History Tobacco Use Types [...] Sign Reading Time Taken Comments Blood Pressure 106/63 06/09/2012 1543 EDT Pulse 66 06/09/2012 1543 EDT Temperature 36.4 ??C (97.5 ??F) 06/09/2012 1543 EDT Respiratory Rate 16 06/09/2012 1543 EDT Oxygen Saturation - - Inhaled Oxygen Concentration - - Weight 63.1 kg (139 lb 3.2 oz) 06/09/2012 1543 EDT Height 169 cm (5' 6.54) 06/09/2012 1543 EDT Body Mass Index 22.11 06/09/2012 1543 EDT documented in this encounter Functional Status Cognitive Status Response Date of Assessment Because of a physical, mental, or emotional condition, do Ye s 08/15/2011 you have serious difficulty concentrating, remembering, or making decisions? (5 years old or older) documented as of this encounter Discharge Disposition Disposition Code Departure Means Destination Auto Discharge documented in this encounter Progress Notes Jessi Pleitez MD - 06/09/2012 1552 EDT REASON FOR OFFICE VISIT: Discussion of side effects while receiving tamoxifen for ER+, node negative, invasive ductal carcinoma. PROBLEM LIST: 1. Invasive adenocarcinoma of the right breast identified based palpable mass in June 2011. a. total mastectomy and prophylactic mastectomy performed 08/14/2011 with pathology revealing a 1.2 cm invasive ductal carcinoma of the right breast, well-differentiated, lymphovascular invasion identified on the core biopsy and by DFCI there was an area on the mastectomy specimen. 0/4 lymph nodes; ER+>90%, WI+ > 90%; HER-2 2+ by immunohistochemistry and negative by FISH. Oncotype DX score 20 (intermediate range). b. Initiated tamoxifen 08/2011 2. Family history of breast cancer, genetic testing negative for BRCA mutation 3. Other chronic health problems include ADHD and anxiety. SUBJECTIVE: Ms Dow presents to the clinic today for evaluation while receiving tamoxifen. She hasintermittent hot flashes but they don not interfere with her function. She has had problems with depression over the winter. Her depression was much more stable on Wellbutrin. She discontinued it so she could take tamoxifen. She has been more tearful, alcohol effects her differently. She has been on many other antidepressants in the past. She has a regular therapist. She has been having regular periods. ROS: A 10 point review of systems was obtained. Other than described in the subjective she notes mild fatigue, weight gain, occasional insomina Medications Prior to Today's Visit Medication Sig ??? lisdexamfetamine (VYVANSE) 30 mg capsule Take 1 Cap by mouth daily for 84 days. ??? lorazepam (ATIVAN) 1 mg tablet Take 1 Tab by mouth 2 times daily as needed for Anxiety (PMS). ??? tamoxifen (NOLVADEX) 20 mg tablet Take 1 Tab by mouth daily. ??? trazodone (DESYREL) 50 mg tablet Take 1.5 Tabs by mouth at bedtime. [id number] by mouth. ??? fluticasone (FLONASE) 50 mcg/actuation nasal spray 50 mcg by Nasal route 2 times daily as needed. ??? FEXOFENADINE HCL (MART ORAL) Take by mouth as needed. History Substance Use Topics ??? Smoking status: Never Smoker ??? Smokeless tobacco: Never Used ??? Alcohol Use: No rare Planning to move back to [place]. 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 Objective: BP 106/63 Pulse 66 Temp(Src) 36.4 ??C (97.5 ??F) (Tympanic) Resp 16 Ht 169 cm (66.54) Wt 63.141 kg (139 lb 3.2 oz) BMI 22.11 kg/m2 Estimated Body mass index is 22.11 kg/(m^2) as calculated from the following: Height as of this encounter: 5' 6.535(1.69 m). Weight as of this encounter: 139 lb 3.2 oz(63.141 kg). ECOG Performance Status: 0 General: Comfortable, cooperative and in no apparent distress HEENT: Pupils are equal, round, reactive to light; Extraocular muscles are intact; Oromucosa is moist; no mucosal lesions are identified LYMPH: No cervical, supraclavicular lymphadenopathy LUNGS: Clear to auscultation bilaterally, resonant to percussion CARDIOVASCULAR: Regular, rate and rhythm; No murmurs, rubs or gallops ABDOMEN: Soft, non-tender, non distended, no hepatosplenomegaly appreciated, though exam difficult secondary to body habitis. EXTREMITIES: No clubbing, cyansis or edema; No calf tenderness NEURO: Alert and oriented x 3; Grossly neurologically intact ASSESSMENT: Ms Dow is a 42-year-old female with a [id number] invasive ductal carcinoma, ER positive, well-differentiated, Oncotype DX score of 20. She initiated tamoxifen in August of 2011. She has intermittent hotflashes, but otherwise the tamoxifen is tolerable. However, she had to go off Wellbutrin when she started the tamoxifen because of the decreased metabolism of tamoxifen in the setting of Wellbutrin. Her depression had been quite stable on Wellbutrin for several years. Her depression is definitely increased since discontinuing the Wellbutrin. At this point, she feels as summer approaches the depression will get better. She continues to see a therapist. She does not want to initiate any anti-depressant medications at least for now. We discussed in regard to helping control the depression were to refer her to [facility] to discuss medical intervention options considering that she has been on many medications in the past. Alternatively, we could provide ovarian suppression and switch to an aromatase inhibitor. We would provide ovarian suppression at least upfront with chemical suppression so that she could experience the side effects of menopause before pursuing anything more permanent. Jia would like to know her tamoxifen metabolizer status as she feels that that might also help her make a decision in the future regarding antiestrogen therapy. She continues to be seen in the breast care center and will see Dr Cameron in August. PLAN: 1. For now continue tamoxifen 20 mg daily, 5 years of antiestrogen therapy would be completed in August 2016. 2. Arrange for CYP2D6 testing. 3. Continue followup with Dr Cameron. 4. Return to clinic in 6 months. She is encouraged to call earlier if she would like to make a change in the tamoxifen. Jessi Pleitez MD 06/09/2012 15:52 documented in this encounter Miscellaneous Notes Scanned Note-Null - PACKAGING SALES, SCAN 2 - 06/12/2012 9470 EDT documented in this encounter Plan of Treatment Upcoming Encounters Date Type Specialty Care Team Description 12/16/2021 Appointment Infusion Therapy 04/15/2022 Office Visit Hematology and Oncology Poppy Felton PAChuyC 111 [facility], [facility] 2 [place], [place] [phone] (Wo rk) 05/30/2022 Office Visit Surgical Oncology Asa Cameron MD 111 [facility] 2 [place], [place] [phone] (Wo rk) documented as of this encounter Visit Diagnoses Diagnosis Breast cancer (HCC-CMS) (HCC) - Primary Malignant neoplasm of breast (female), u nspecified site Malignant neoplasm of breast (HCC) Malignant neoplasm of breast (female), u nspecified site ADHD (attention deficit hyperactivity di sorder) Attention deficit disorder with hyperact ivity Depression Depressive disorder, not elsewhere class ified documented in this encounter Care Teams Deliverer Pharmacy Relationship Specialty Start Date End Date Evert Perdomo MD PCP - General 10/13/08 05/13/[address] [phone] documented as of this encounter
--- OUTSIDE RECORDS SUMMARY | 2021-11-29 00:30 | XMS_ITS | Encounter Summary ---
:1970 Author Organization [facility] Address [address] [place] [address] Care Team Providers Name Role Phone Evert Perdomo MD Primary Care Provider Reason for Visit Reason Onset Date Comments Medications Refill 02/22/2013 Encounter Details Date Type Department Care Team Description 02/22/2013 Refill [facility] Adult Evert Perdomo MD Medications Refill Primary Care - [address] [address] [phone] (Wo rk) Social History Tobacco Use Types [...] Take 1 Cap by 90 Cap 0 201206/15/2013 30 mg capsule mouth every morning. ID #[id number] documented in this encounter Miscellaneous Notes Telephone Encounter - Charlotte Lynne - 02/28/2013 1038 EST Script mailed to [facility] elephone Encounter - Cristiane Bautista - 02/22/2013 1203 EST Mail directly to [facility], [id number], [place] [address] Pt requesting refill for: Vyvanse, 30 mg, 1 PO QAM, #90, last refill 01.28.13, pt uses mail order pharmacy, needs/wants a 90 day supply. Would also like her ID number on the script as well, #[id number]. Is the pt out of the medication?: No Pharmacy: [facility] Last OV w/PCP: 01.28.13 Next OV w/PCP: Visit date not found Cristiane Bautista 02/22/2013 12:03 documented in this encounter Plan of Treatment Upcoming Encounters Date Type Specialty Care Team Description 12/16/2021 Appointment Infusion Therapy 04/15/2022 Office Visit Hematology and Oncology Poppy Felton PA-C 111 [facility], Level [address] [place], [place] [phone] (Wo rk) 05/30/2022 Office Visit Surgical Oncology Asa Cameron MD 111 [facility] [address] [place], [place] [phone] (Wo rk) documented as of this encounter Visit Diagnoses Not on filedocumented in this encounter Discontinued Medications Medication Sig Discontinue Reason Start Date End Date lisdexamfetamine (VYVANSE) Take 1 Cap by Reorder 01/28/2013 02/22/2013 30 mg capsule mouth every morning. documented as of this encounter Care Teams Manager Agriculture Relationship Specialty Start Date End Date Evert Perdomo MD PCP - General 10/13/08 05/13/[address] [address] documented as of this encounter
--- OUTSIDE RECORDS SUMMARY | 2021-11-29 00:30 | XMS_ITS | Encounter Summary ---
:1970 Author Organization [facility] Address [address] [place] [address] Care Team Providers Name Role Phone Evert Perdomo MD Primary Care Provider Reason for Visit Reason Onset Date Comments Medications Refill 07/23/2012 Encounter Details Date Type Department Care Team Description 07/23/2012 Refill [facility] Adult Evert Perdomo MD Medications Refill Primary Care - [phone] [place] [phone] (Wo rk) Social History Tobacco Use Types [...] Start Date End Date traZODone (DESYREL) 50 mg Take 1.5 Tabs by 135 Tab 0 06/2510/26/2012 tablet mouth at bedtime. [id number] by mouth. lisdexamfetamine (VYVANSE) Take 1 Cap by 90 Cap 0 201210/26/2012 30 mg capsule mouth daily for 90 days. documented in this encounter Miscellaneous Notes Telephone Encounter - Mamta Mayorga - 07/26/2012 1356 EDT Script in drawer, patient will pick up elephone Encounter - Mamta Mayorga - 07/23/2012 1230 EDT Pt requesting refill for: Med & Strength: Vyvanse 30 mg Sig & Quantity: 1 daily 90 Needs 3 month For mail order to cover Last refill:05/03/12 Is the pt out of the medication?: no Pharmacy: [facility] Mail order Last OV w/PCP: 11/18/11 Next OV w/PCP: 08/11/2012 Med & Strength: Trazadone 50 mg Sig & Quantity: 1.5 tabs Q hs Needs 90 day supply for Mail order Last Refill:06/14/12 Is the pt out of the medication?no Needs scripts printed to mail to mail order pharmacy, needs to be 90 day scripts Mamta Mayorga 07/23/2012 12:32 documented in this encounter Plan of Treatment Upcoming Encounters Date Type Specialty Care Team Description 12/16/2021 Appointment Infusion Therapy 04/15/2022 Office Visit Hematology and Oncology Poppy Felton, SHAHAB [facility] 2 [place], [place] [phone] (Wo rk) 05/30/2022 Office Visit Surgical Oncology Asa Cameron MD 111 [facility], [address] [phone] (Wo rk) documented as of this encounter Visit Diagnoses Not on filedocumented in this encounter Discontinued Medications Medication Sig Discontinue Reason Start Date End Date lisdexamfetamine (VYVANSE) Take 1 Cap by Reorder 05/03/2012 07/23/2012 30 mg capsule mouth daily for 84 days. traZODone (DESYREL) 50 mg Take 1.5 Tabs by Reorder 06/14/2012 07/23/2012 tablet mouth at bedtime. [id number] by mouth. documented as of this encounter Care Teams Lamination Machine Operator Relationship Specialty Start Date End Date Evert Perdomo MD PCP - General 10/13/08 05/13/[address] [address] documented as of this encounter
--- OUTSIDE RECORDS SUMMARY | 2021-11-29 00:30 | XMS_ITS | Encounter Summary ---
:1970 Author Organization [facility] Address [address] [place] [address] Care Team Providers Name Role Phone Evert Perdomo MD Primary Care Provider Reason for Visit Reason Onset Date Comments Medications Refill 07/15/2012 Encounter Details Date Type Department Care Team Description 07/15/2012 Refill [facility] Adult Evert Perdomo MD Medications Refill Primary Care - [phone] [place] [phone] (Wo rk) Social History Tobacco Use Types [...] Telephone Encounter - Melanie Oconnor RN - 07/15/2012 1359 EDT Called pharmacy and they will fill the 06/14/12 prescription that was e- prescribed for pt at that time. elephone Encounter - Elyssa Pal - 07/15/2012 1213 EDT Pt requesting refill for: Med & Strength: Trazodone 50 mg tablet Sig & Quantity: take 1.5 tabs by mouth at bedtime, 135 Last refill:4..13 Is the pt out of the medication?: Out of medication patient leaving town and needs it by tomorrow, told her about 72 hour notice. Pharmacy: [id number], [place] Last OV w/PCP: 9.25.12 Next OV w/PCP: Elyssa Pal 07/15/2012 12:13 documented in this encounter Plan of Treatment Upcoming Encounters Date Type Specialty Care Team Description 12/16/2021 Appointment Infusion Therapy 04/15/2022 Office Visit Hematology and Oncology Poppy Felton PACl 111 [facility], [facility] 2 [place], [place] [phone] (Larissa felder) 05/30/2022 Office Visit Surgical Oncology Asa Cameron MD 111 [facility], [facility] 2 [place], [place] [phone] (Larissa felder) documented as of this encounter Visit Diagnoses Not on filedocumented in this encounter Care Teams Right Of Way Appraiser Relationship Specialty Start Date End Date Evert Perdomo MD PCP - General 10/13/08 05/13/[address] [place] [phone] documented as of this encounter
--- OUTSIDE RECORDS SUMMARY | 2021-11-29 00:30 | XMS_ITS | Encounter Summary ---
:1970 Author Organization [facility] Address [address] [place] [address] Care Team Providers Name Role Phone Evert Perdomo MD Primary Care Provider Reason for Visit Reason Comments Follow-up Encounter Details Date Type Department Care Team Description 08/17/2012 Office Visit [facility] Asa Cameron MD Malignant neoplasm of Surgical Oncology - [address] [place] [address] breast ([facility]-HCC) [facility] (Primary Dx) [address] [place] [address] Pavili, [place] [address] (Wo rk) Social History Tobacco [...] encounter Progress Notes Asa Cameron MD - 08/17/2012 1436 EDT DIVISION OF SURGICAL ONCOLOGY - BREAST [facility] PROGRESS/FOLLOWUP NOTE - 08/17/2012 SUBJECTIVE: The patient seen in followup for history of breast cancer. The patient is a 42-year-old woman who had a right breast cancer in July of 2011. She underwent a right total mastectomy with sentinel node biopsy and prophylactic left total mastectomy. She had implant reconstruction. She had a T1cN0 cancer and has been on tamoxifen since that time. The patient about 1-1/2 to 2 weeks ago had a nipple reconstruction procedure done down in [place] and has sutures and is also wanting to have those removed today. The patient has no other complaints. OBJECTIVE: On exam, she is in no distress. There is no scleral icterus. There are no palpable neck masses. No cervical or supraclavicular lymphadenopathy is noted. There are no thyroid nodules, carotidbruits, or JVD. Lungs are clear to auscultation. Heart has a regular rate and rhythm, no S3, S4 or murmurs are noted. Breast exam reveals the mastectomies with implants and suture material in from her nipple reconstruction. Palpation of the right mastectomy site reveals the implant in good position. There are no palpable subcutaneous nodules. There are no palpable lymph nodes in the right axilla. Theleft breast similarly has no palpable abnormalities. The implant is in good position. There are no palpable abnormalities in the axilla. There are no abdominal masses, no abdominal tenderness and no hepato- or splenomegaly is noted. DIAGNOSTIC DATA: Ultrasound of the right breast area shows the implant in good position. There is noevidence of local recurrence in the mastectomy site. No abnormal appearing lymph nodes are seen in the internal mammary or axillary region. On the left side, again, the implant is in good position. There is no evidence of suspicious findings in the subcutaneous tissues. There are no abnormal lymph nodes in the internal mammary or axillary region. Sutures are removed from the nipple reconstruction on both sites and Steri-Strips were placed over the area. PLAN: The plan is to have the patient return for followup in approximately 6 months. Of note, the patient will be going to [place] for approximately 1 year. She will be back at some point in the future and we will try to coordinate a time for her visit when she returns home. Electronically Signed by Asa Cameron MD 08/18/2012 16:15 Asa Cameron MD - Asa Cameron MD - [facility] Job ID: SM Doc ID: [id number] Ext Doc ID: [id number] cc: MD Evert Ames MD Robert D Nesbit, MD AMTHAsa sheppard MD - 08/17/2012 1115 EDT This office note has been dictated. documented in this encounter Miscellaneous Notes Scanned Note-Null - PRECISION OPTICAL GOODS WORKER, SCAN 2 - 09/09/2012 0723 EDT canned Note- Null - PRECISION OPTICAL GOODS WORKER, SCAN 2 - 08/30/2012 0717 EDT documented in this encounter Plan of Treatment Upcoming Encounters Date Type Specialty Care Team Description 12/16/2021 Appointment Infusion Therapy 04/15/2022 Office Visit Hematology and Oncology Poppy Felton PA-C [address] [place] [facility], [facility] 2 [place], [place] [phone] (Wo rk) 05/30/2022 Office Visit Surgical Oncology Asa Cameron MD [address] [place] [address] [facility], [facility], Level [address] [place], [place] [phone] (Wo rk) documented as of this encounter Visit Diagnoses Diagnosis Malignant neoplasm of breast (HCC) - Nicole rizo Malignant neoplasm of breast (female), u nspecified site documented in this encounter Care Teams Document Photographer Relationship Specialty Start Date End Date Evert Perdomo MD PCP - General 10/13/08 05/13/[address] [address] documented as of this encounter
--- OUTSIDE RECORDS SUMMARY | 2021-11-29 00:30 | XMS_ITS | Encounter Summary ---
:1970 Author Organization [facility] Address [address] [place] [address] Care Team Providers Name Role Phone Evert Perdomo MD Primary Care Provider Encounter Details Date Type Department Care Team Description 12/01/2012 Orders Only [facility] Juan Carr [address] [place], [place] [phone] Social History Tobacco Use Types Packs/Day Years [...] and Oncology Poppy Felton PA-C [address] [phone] (Wo rk) 05/30/2022 Office Visit Surgical Oncology Asa Cameron MD [address] [phone] (Wo rk) documented as of this encounter Visit Diagnoses Not on filedocumented in this encounter Care Teams Load Tester Relationship Specialty Start Date End Date Evert Perdomo MD PCP - General 10/13/08 05/13/[address] [address] documented as of this encounter
--- OUTSIDE RECORDS SUMMARY | 2021-11-29 00:30 | XMS_ITS | Encounter Summary ---
:1970 Author Organization [facility] Address [address] [place] [address] Care Team Providers Name Role Phone Evert Perdomo MD Primary Care Provider Reason for Visit Reason Onset Date Comments Medications Refill 06/11/2012 Encounter Details Date Type Department Care Team Description 06/11/2012 Refill [facility] Adult Evert Perdomo MD Medications Refill Primary Care - [address] [address] [phone] (Wo rk) Social History Tobacco Use Types [...] Take 1.5 Tabs by 135 Tab 0 05/2507/23/2012 tablet mouth at bedtime. [id number] by mouth. traZODone (DESYREL) 50 mg Take 1.5 Tabs by 45 Tab 0 05/2406/14/2012 tablet mouth at bedtime. [id number] by mouth. documented in this encounter Miscellaneous Notes Telephone Encounter - Cristiane Bautista - 06/11/2012 1511 EDT Pt requesting refill for: Med & Strength: Trazodone, 50 mg Sig & Quantity: 1 02/24 PO HS, #45 Pharmacy: One month supply to [facility] & three month supply to [facility] mail order Last refill: 11.11.11 Last OV w/PCP: 12.30.11 Next OV w/PCP: Not scheduled Is the pt out of the medication?: no documented in this encounter Plan of Treatment Upcoming Encounters Date Type Specialty Care Team Description 12/16/2021 Appointment Infusion Therapy 04/15/2022 Office Visit Hematology and Oncology Poppy Felton PA-C 111 [facility], [facility] 2 [place], [place] [phone] (Wo rk) 05/30/2022 Office Visit Surgical Oncology Asa Cameron MD [address] [phone] (Wo rk) documented as of this encounter Visit Diagnoses Not on filedocumented in this encounter Discontinued Medications Medication Sig Discontinue Reason Start Date End Date trazodone (DESYREL) 50 mg Take 1.5 Tabs by Reorder 11/11/2011 06/11/2012 tablet mouth at bedtime. [id number] by mouth. traZODone (DESYREL) 50 mg Take 1.5 Tabs by Reorder 06/11/2012 06/14/2012 tablet mouth at bedtime. [id number] by mouth. documented as of this encounter Care Teams Database Security Expert Relationship Specialty Start Date End Date Evert Perdomo MD PCP - General 10/13/08 05/13/[address] [place] [phone] documented as of this encounter
--- OUTSIDE RECORDS SUMMARY | 2021-11-29 00:30 | XMS_ITS | Encounter Summary ---
:1970 Author Organization [facility] Address [address] [place] [address] Care Team Providers Name Role Phone Evert Perdomo MD Primary Care Provider Reason for Visit Reason Onset Date Comments Medications Refill 01/30/2014 Encounter Details Date Type Department Care Team Description 01/30/2014 Refill [facility] Adult Evert Perdomo MD Medications Refill Primary Care - [address] [phone] (Wo rk) Social History Tobacco Use Types [...] Telephone Encounter - Lucero Ly RN - 01/31/2014 0907 EST Duplicate request. elephone Encounter - Melanie Oconnor RN - 01/30/2014 1427 EST From: Jia Dow To: Evert Perdomo MD Sent: 01/30/2014 14:18 EST Subject: Medication Renewal Request Original authorizing provider: MD Jia Ellis would like a refill of the following medications: LORazepam (ATIVAN) 1 mg tablet [Evert Perdomo MD] Preferred pharmacy: [facility] [address] [place] [address] Comment: documented in this encounter Plan of Treatment Upcoming Encounters Date Type Specialty Care Team Description 12/16/2021 Appointment Infusion Therapy 04/15/2022 Office Visit Hematology and Oncology Poppy Felton, PAChuyC 111 [facility], [facility] 2 [place], [place] [phone] (Wo rk) 05/30/2022 Office Visit Surgical Oncology Asa Cameron MD 111 [facility], [facility] 2 [place] [phone] (Wo rk) documented as of this encounter Visit Diagnoses Not on filedocumented in this encounter Care Teams Automotive Teacher Relationship Specialty Start Date End Date Evert Perdomo MD PCP - General 10/13/08 05/13/[address] [address] documented as of this encounter
--- OUTSIDE RECORDS SUMMARY | 2021-11-29 00:30 | XMS_ITS | Encounter Summary ---
:1970 Author Organization [facility] Address [address] [place] [address] Care Team Providers Name Role Phone Evert Perdomo MD Primary Care Provider Encounter Details Date Type Department Care Team Description 02/19/2012 Results Only [facility] Asa Cameron MD Imaging Surgical Oncology - [address] [place] [address], [address], [address] 2 [place], [place] [phone] [place] [phone] (Wo rk) Social History Tobacco Use Types [...] and Oncology Poppy Felton PA-C 111 [facility], [facility] 2 [place], [place] [phone] (Wo rk) 05/30/2022 Office Visit Surgical Oncology Asa Cameron MD [address] [phone] (Wo rk) documented as of this encounter Procedures Procedure Name Priority Date/Time Associated Diagnosis Comme nts [facility] 02/25/2012 13:19 Results for this BREAST-BREAST CARE EST procedure are in CENTER ONLY the results section. documented in this encounter Results [facility] BREAST-BREAST CARE CENTER ONLY (02/25/2012 13:19 EST) Anatomical Region Laterality Modality Other Specimen Narrative [facility] RAD[facility] - 02/25/2012 13:19 EST See Notes Tab. Procedure Note 02/25/2012 See Notes Tab. Performing Organization Address City/State/ZIP Code Phon e Number [facility] BREAST IMAGING [facility] RAD[facility] documented in this encounter Visit Diagnoses Not on filedocumented in this encounter Care Teams Custom Garment Designer Relationship Specialty Start Date End Date Evert Perdomo MD PCP - General 10/13/08 05/13/[address] [address] documented as of this encounter
--- OUTSIDE RECORDS SUMMARY | 2021-11-29 00:30 | XMS_ITS | Encounter Summary ---
:1970 Author Organization [facility] Address [address] [place] [address] Care Team Providers Name Role Phone Evert Perdomo MD Primary Care Provider Reason for Visit Reason Onset Date Comments Labs Only 06/23/2012 Encounter Details Date Type Department Care Team Description 06/23/2012 Telephone [facility] Jessi Pleitez MD PhD Labs Only Hematology & Oncology - 111 [facility], [address] 2 [place], [place] [phone] [place] [phone] (Wo rk) Social History Tobacco Use [...] this encounter Miscellaneous Notes Telephone Encounter - Jenn Mock RN - 06/23/2012 1616 EDT The coverage for CYP2D6 genotype testing has been discussed with the patient (see letters). She willawait further discussion with Dr. Pleitez, but would like to pursue testing as long as the patient cost is applied toward her deductible. elephone Encounter - Magalys Ventura - 06/23/2012 1251 EDT Patient has order in system for CYP2DC lab, was told that we would check with her insurance company to verify this lab is covered. documented in this encounter Plan of Treatment Upcoming Encounters Date Type Specialty Care Team Description 12/16/2021 Appointment Infusion Therapy 04/15/2022 Office Visit Hematology and Oncology Poppy Felton PA-C 111 [facility] 2 [place], [place] [phone] (Wo bradford) 05/30/2022 Office Visit Surgical Oncology Asa Cameron MD 111 [facility] 2 [place] [phone] (Wo rk) documented as of this encounter Visit Diagnoses Not on filedocumented in this encounter Care Teams Manager Orange Relationship Specialty Start Date End Date Evert Perdomo MD PCP - General 10/13/08 05/13/[address] [address] documented as of this encounter
--- OUTSIDE RECORDS SUMMARY | 2021-11-29 00:30 | XMS_ITS | Encounter Summary ---
:1970 Author Organization [facility] Address [address] [place] [address] Care Team Providers Name Role Phone Evert Perdomo MD Primary Care Provider Reason for Visit Reason Comments Follow-up Encounter Details Date Type Department Care Team Description 11/26/2011 Office Visit [facility] Jessi Pleitez MD Breas t cancer Hematology & PhD ([facility]) Oncology - [address] [place] [address] [address], [place] [phone] (Wo rk) Social History Tobacco Use Types [...] Sign Reading Time Taken Comments Blood Pressure 118/78 11/26/2011 1250 EDT Pulse 71 11/26/2011 1250 EDT Temperature 37 ??C (98.6 ??F) 11/26/2011 1250 EDT Respiratory Rate 16 11/26/2011 1250 EDT Oxygen Saturation - - Inhaled Oxygen Concentration - - Weight 61.8 kg (136 lb 4.8 oz) 11/26/2011 1250 EDT Height - - Body Mass Index 21.67 11/18/2011 1418 EDT documented in this encounter Functional Status Cognitive Status Response Date of Assessment Because of a physical, mental, or emotional condition, do Ye s 08/15/2011 you have serious difficulty concentrating, remembering, or making decisions? (5 years old or older) documented as of this encounter Discharge Disposition Disposition Code Departure Means Destination Auto Discharge documented in this encounter Progress Notes Jessi Pleitez MD - 11/26/2011 6237 EDT REASON FOR OFFICE VISIT: Discussion of [...] the mastectomy specimen. 0/4 lymph nodes; ER+>90%, NC+ > 90%; HER-2 2+ by immunohistochemistry and negative by FISH. Oncotype DX score 20 (intermediate range). B. Initiated tamoxifen 08/2011 2. Family history of breast cancer, genetic testing is pending. 3. Other chronic health problems include ADHD and anxiety. SUBJECTIVE: Ms Dow presents to the clinic for ongoing evaluation while receiving tamoxifen for treatment of breast cancer. She has mild hotflashes which do not interfere with her function. She stopped the Wellbutrin and has not noticed worsening depression and so has not started another medication.She has decresed libido. She plans to have final plastic surgery intervention in early Jan. ROS: A 10 point review of systems was obtained. Other than described in the subjective she notes occasional insomnia, mild anxiety/depression Medications Prior to Today's Visit Medication Sig ??? lorazepam (ATIVAN) 1 mg tablet Take 1 Tab by mouth 2 times daily as needed for Anxiety (PMS). ??? tamoxifen (NOLVADEX) 20 mg tablet Take 1 Tab by mouth daily. ??? lisdexamfetamine (VYVANSE) 30 mg capsule Take 1 Cap by mouth daily for 28 days. ??? trazodone (DESYREL) 50 mg tablet Take 1.5 Tabs by mouth at bedtime. [id number] by mouth. ??? fluticasone (FLONASE) 50 mcg/actuation nasal spray 50 mcg by Nasal route 2 times daily as needed. ??? FEXOFENADINE HCL (MART ORAL) Take by mouth as needed. History Substance Use Topics ??? Smoking status: Never Smoker ??? Smokeless tobacco: Never Used ??? Alcohol Use: No rare Presents to the clinic alone today. 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 Exercises regularly. Objective: BP 118/78 Pulse 71 Temp(Src) 37 ??C (98.6 ??F) (Tympanic) Resp 16 Wt 61.825 kg (136 lb 4.8 oz) Estimated Body mass index is 21.67 kg/(m^2) as calculated from the following: Height as of 11/18/11: 5' 6.5(1.689 m). Weight as of this encounter: 136 lb 4.8 oz(61.825 kg). ECOG Performance Status: 0 General: Comfortable, [...] visit with results is: Phlebotomy Only on 11/21/2011 Component Date Value Range Status ??? Potassium (mEq/L) 11/21/2011 3.9 3.5-5.0 Final ??? Sodium (mEq/L) 11/21/2011 139 136-145 Final ??? Chloride (mEq/L) 11/21/2011 105 96-110 Final ??? CO2 (mEq/L) 11/21/2011 27 24-32 Final ??? Anion Gap 11/21/2011 7 0-18 Final ??? Total Alkaline Phosphatase (U/L) 11/21/2011 63 38-126 Final ? ? Bilirubin, Total (mg/dl) 11/21/2011 <0.5 0.2-1.3 Final ??? AST (U/L) 11/21/2011 32 15-46 Final ??? ALT (U/L) 11/21/2011 20 9-52 Final ??? Albumin (g/dl) 11/21/2011 3.9 3.4-4.9 Final ??? Total Protein (g/dl) 11/21/2011 6.8 6.5-8.3 Final ??? Creatinine (mg/dl) 11/21/2011 0.83 0.52-1.04 Final ? ? GFR, Calculated (ml/min/1.73m2) 11/21/2011 >60 >60 Final ??? BUN (mg/dl) 11/21/2011 13 10-26 Final ??? Calcium (mg/dl) 11/21/2011 9.7 8.5-10.5 Final ??? Calculated Calcium (mg/dl) 11/21/2011 10.2 8.5-10.5 Final ??? Glucose, Serum (mg/dl) 11/21/2011 117* 70-100 Final ??? Magnesium (mg/dl) 11/21/2011 2.1 1.7-2.8 Final ??? WBC (K/cmm) 11/21/2011 6.71 4.0-12.4 Final ??? RBC (M/cmm) 11/21/2011 4.00 3.86-5.04 Final ??? Hemoglobin (gm/dl) 11/21/2011 12.3 11.6-15.2 Final ??? HCT (%) 11/21/2011 36.1 34.9-44.4 Final ??? MCV (fl) 11/21/2011 90 81-98 Final ??? MCH (pg) 11/21/2011 30.8 26.7-33.3 Final ??? MCHC (gm/dl) 11/21/2011 34.1 32.1-35.9 Final ??? PLT (K/cmm) 11/21/2011 205 141-320 Final ??? RDW-CV (%) 11/21/2011 12.7 11.7-14.6 Final ??? Neutrophils (%) 11/21/2011 63.8 45.5-79.7 Final ??? Lymphocytes (%) 11/21/2011 30.5 15.0-46.8 Final ??? Monocytes (%) 11/21/2011 4.9 1.8-12.0 Final ??? Eosinophils (%) 11/21/2011 0.4* 0.6-6.9 Final ??? Basophils (%) 11/21/2011 0.4 0.2-1.4 Final ??? ABS Neutrophils (K/cmm) 11/21/2011 4.28 2.20-8.85 Final ??? ABS Lymphs (K/cmm) 11/21/2011 2.05 1.09-3.30 Final ??? ABS Monocytes (K/cmm) 11/21/2011 0.33 0.1-0.8 Final ??? ABS Eosinophils (K/cmm) 11/21/2011 0.03 0.03-0.61 Final ??? ABS Basophils (K/cmm) 11/21/2011 0.02 0.01-0.11 Final ??? Type of Diff: 11/21/2011 Automated Final ASSESSMENT: Ms Dow is a 41-year-old female with a pT1c N0 M0 invasive ductal carcinoma with the pathology indicating estrogen-receptor positivity and a well- differentiated tumor. Her Oncotype DX score was 20. Based on discussion at [facility], she elected to forego chemother apy and initiate tamoxifen. She has been on tamoxifen for approximately 2 months. There are no abnormalities in her labs. She has mild hot flashes, but is otherwise tolerating the tamoxifen. She stopped the Wellbutrin and has not noticed much difference in her depressive symptoms. We will plan to complete 5 years of antiestrogen therapy with tamoxifen given that she is premenopausal. PLAN: 1. Tamoxifen 20 mg daily. Five years of antiestrogen therapy with tamoxifen would be completed in 08/2016. 2. Continue to follow up with Dr Cameron. 3. Return to the clinic in 6 months. She is encouraged to call with any intercurrent concerns or problems. Jessi Pleitez MD 11/26/2011 17:32 documented in this encounter Plan of Treatment Upcoming Encounters Date Type Specialty Care Team Description 12/16/2021 Appointment Infusion Therapy 04/15/2022 Office Visit Hematology and Oncology Poppy Felton PA-C [address] [phone] (Wo rk) 05/30/2022 Office Visit Surgical Oncology Asa Cameron MD [address] [phone] (Wo rk) documented as of this encounter Visit Diagnoses Diagnosis Breast cancer (HCC-CMS) (HCC) Malignant neoplasm of breast (female), u nspecified site documented in this encounter Care Teams Fur Buyer Relationship Specialty Start Date End Date Evert Perdomo MD PCP - General 10/13/08 05/13/[address] [phone] documented as of this encounter
--- OUTSIDE RECORDS SUMMARY | 2021-11-29 00:30 | XMS_ITS | Encounter Summary ---
:1970 Author Organization [facility] Address [address] [place] [address] Care Team Providers Name Role Phone Evert Perdomo MD Primary Care Provider Encounter Details Date Type Department Care Team Description 11/21/2011 Phlebotomy Only [facility] Scientific ManagerChristian [facility] ([facility] [address] [place] [address] Social History Tobacco Use Types Packs/Day Years [...] Hematology and Oncology Poppy Felton PA-C 111 [facility], [facility] 2 [place], [place] [phone] (Wo rk) 05/30/2022 Office Visit Surgical Oncology Asa Cameron MD 111 [facility], [facility] 2 [place] [phone] (Wo rk) documented as of this encounter Procedures Procedure Name Priority Date/Time Associated Comments Diagnosis COMPREHENSIVE STAT 11/21/2011 15:14 Breast cancer Results f or this METABOLIC PANEL EDT ([facility]) procedure ar e in (ONCOLOGY USE ONLY-INC the r esults MG) section. DIFFERENTIAL Routine 11/21/2011 15:14 Results for this EDT procedure are i n the results section. COMPLETE BLOOD COUNT Routine 11/21/2011 15:14 Res ults for this EDT procedure are i n the results section. COMPLETE BLOOD COUNT STAT 11/21/2011 15:14 Breast cancer AND DIFFERENTIAL EDT ([facility]) documented in this encounter Results (ABNORMAL) DIFFERENTIAL (11/21/2011 15:14 EDT) Pathologist Sig nature Neutrophils 63.8 45.5 - 79.7 % [facility] Lymphocytes 30.5 15.0 - 46.8 % [facility] Monocytes 4.9 1.8 - 12.0 % [facility] Eosinophils 0.4 (L) 0.6 - 6.9 % [facility] Basophils 0.4 0.2 - 1.4 % [facility] ABS Neutrophils 4.28 2.20 - 8.85 K/cmm [facility] ABS Lymphs 2.05 1.09 - 3.30 K/cmm [facility] ABS Monocytes 0.33 0.1 - 0.8 K/cmm [facility] ABS Eosinophils 0.03 0.03 - 0.61 K/cmm [facility] ABS Basophils 0.02 0.01 - 0.11 K/cmm [facility] Type of Diff: Automated [facility] Specimen Performing Organization Address City/[facility]/ZIP Code Phon e Number [facility] [address] [place] [address] SERVICES [facility] [address] [place] [address] HEMAGRAM (11/21/2011 15:14 EDT) Pathologist Sig nature WBC 6.71 4.0 - 12.4 K/cmm [facility] RBC 4.00 3.86 - 5.04 M/cmm [facility] Hemoglobin 12.3 11.6 - 15.2 gm/dl [facility] HCT 36.1 34.9 - 44.4 % [facility] MCV 90 81 - 98 fl [facility] MCH 30.8 26.7 - 33.3 pg [facility] MCHC 34.1 32.1 - 35.9 gm/dl [facility] PLT 205 141 - 320 K/cmm [facility] RDW-CV 12.7 11.7 - 14.6 % [facility] Specimen Performing Organization Address [facility] Phon e Number [facility] [address] [place] [address] SERVICES [facility] [address] [place] [address] (ABNORMAL) COMPREHENSIVE METABOLIC PANEL (ONCOLOGY USE ONLY-INC MG: DRAW GREEN TOP) (11/21/2011 15:14 EDT) Pathologist Sig nature Potassium 3.9 3.5 - 5.0 mEq/L [facility] Sodium 139 136 - 145 mEq/L [facility] Chloride 105 96 - 110 mEq/L [facility] CO2 27 24 - 32 mEq/L [facility] Anion Gap 7 0 - 18 [facility] Total Alkaline 63 38 - 126 U/L [facility] Phosphatase Bilirubin, Total <0.5 0.2 - 1.3 mg/dl [facility] AST 32 15 - 46 U/L [facility] ALT 20 9 - 52 U/L [facility] Albumin 3.9 3.4 - 4.9 g/dl [facility] Total Protein 6.8 6.5 - 8.3 g/dl [facility] Creatinine 0.83 0.52 - 1.04 [facility] mg/dl GFR, Calculated >60 >60 [facility] ml/min/1.73m2 BUN 13 10 - 26 mg/dl [facility] Calcium 9.7 8.5 - 10.5 [facility] mg/dl Calculated Calcium 10.2 8.5 - 10.5 [facility] mg/dl Glucose, Serum 117 (H) 70 - 100 mg/dl [facility] Magnesium 2.1 1.7 - 2.8 mg/dl [facility] Specimen Blood specimen (specimen) Performing Organization Address City/State/ZIP Code Phon e Number [facility] [address] [place] [address] SERVICES [facility] [address] [place] [address] documented in this encounter Visit Diagnoses Diagnosis Breast cancer (HCC-CMS) (HCC) Malignant neoplasm of breast (female), u nspecified site documented in this encounter Care Teams Educational Administrator Relationship Specialty Start Date End Date Evert Perdomo MD PCP - General 10/13/08 05/13/[address] [phone] documented as of this encounter
--- OUTSIDE RECORDS SUMMARY | 2021-11-29 00:30 | XMS_ITS | Encounter Summary ---
:1970 Author Organization [facility] Address [address] [place] [address] Care Team Providers Name Role Phone Evert Perdomo MD Primary Care Provider Reason for Visit Reason Onset Date Comments Follow-up 10/08/2012 Encounter Details Date Type Department Care Team Description 10/08/2012 Telephone [facility] Center Jessi Pleitez MD PhD Follow-up Hematology & Oncology - [address] [place] [address], [address] [phone] (Wo rk) Social History Tobacco Use [...] encounter Miscellaneous Notes Telephone Encounter - Radha Xie, RN - 10/08/2012 1634 EDT Stated the the X-ray of her back showed a white area on the spine, stated radiologist & MD not concerned. elephone Encounter - Radha Valdez - 10/08/2012 1551 EDT Pt calling states had an xray done this afternoon in [place], and wanting to speak w/ us documented in this encounter Plan of Treatment Upcoming Encounters Date Type Specialty Care Team Description 12/16/2021 Appointment Infusion Therapy 04/15/2022 Office Visit Hematology and Oncology Poppy Felton, PAChuyC 111 [facility], [facility] 2 [place], [place] [phone] (Wo rk) 05/30/2022 Office Visit Surgical Oncology Asa Cameron MD 111 [facility] 2 [place], [place] [phone] (Wo rk) documented as of this encounter Visit Diagnoses Not on filedocumented in this encounter Care Teams Synthetic Resin Operator Relationship Specialty Start Date End Date Evert Perdomo MD PCP - General 10/13/08 05/13/[address] [phone] documented as of this encounter
--- OUTSIDE RECORDS SUMMARY | 2021-11-29 00:30 | XMS_ITS | Encounter Summary ---
:1970 Author Organization [facility] Address [address] [place] [address] Care Team Providers Name Role Phone Evert Perdomo MD Primary Care Provider Reason for Visit Reason Comments Follow-up Encounter Details Date Type Department Care Team Description 02/20/2014 Office Visit [facility] Asa Cameron MD Malignant neoplasm of Surgical Oncology - [address] [place] [address] breast ([facility]) [facility] (Primary Dx) [address] [place] [address] [address], [place] [phone] (Wo rk) Social History Tobacco Use Types [...] as of this encounter Discharge Diagnoses Diagnosis 174.9 MALIGN NEOPL BREAST NOS[ICD-9-CM] documented in this encounter Progress Notes Asa Cameron MD - 02/20/[address] [facility] BREAST CANCER PROGRAM PROGRESS / FOLLOWUP NOTE - 02/20/2014 PROBLEM: The patient is seen in followup for a history of breast cancer. SUBJECTIVE: The patient is a 43-year-old woman who had a breast cancer on the right side in July of 2011. She opted for a right total mastectomy with sentinel node biopsy and a prophylactic left total mastectomy. She had bilateral implant reconstructions. Tumor stage was T1c N0. She has been on tamoxifen since that time. She continues on that. She is tolerating it reasonably well. The patient did have some additional plastic surgery in [place] in the past year, had her implants replaced at that point. The patient currently is doing well, has no complaints. OBJECTIVE: On exam today, she is in no acute distress. There is no scleral icterus. There are no palpable neck masses, no cervical or supraclavicular lymphadenopathy is noted. There are no palpable thyroid nodules. There are no carotid bruits or JVD. Lungs are clear to auscultation. Heart has a regular rate and rhythm without S3, S4, or murmurs. Breast exam reveals bilateral mastectomies, with no skin changes otherwise noted. She has implants in place. Palpation of the right side reveals no palpableabnormalities suspicious for recurrent disease. There are no palpable lymph nodes in the right axilla. The left mastectomy site has no palpable abnormalities suspicious for recurrent disease. There areno palpable lymph nodes in the axilla. There are no abdominal masses, no abdominal tenderness, no hepato or splenomegaly is noted. She had good range of motion of the upper extremities without lymphedema. DIAGNOSTIC DATA: Ultrasound of the right side demonstrates the implant in good position. There is noevidence of recurrent disease in the mastectomy site. There are no abnormal lymph nodes seen in the internal mammary or axillary region. On the left side, again, there is no evidence of recurrent disease in the mastectomy site. There are no abnormal lymph nodes seen in the internal mammary or axillaryregion. ASSESSMENT: The patient is doing well. She has no evidence of recurrent disease. PLAN: We will plan a followup again in 1 year. Asa Cameron MD 01 10 PM - Asa Cameron MD cn Dictation ID: [id number] cc: Jessi Pleitez MD, [facility] Cancer Center - Hematology Oncology [address] [place] [address] Evert Perdomo MD, [facility] [place] [address] Roman Chino MD, [facility] - Plastic Surgery [address] [facility], [address], [place] [address] arAsa garcía MD - 02/20/2014 1312 EST This office note has been dictated. documented in this encounter Plan of Treatment Upcoming Encounters Date Type Specialty Care Team Description 12/16/2021 Appointment Infusion Therapy 04/15/2022 Office Visit Hematology and Oncology Poppy Felton PA-C 111 [facility], [facility] 2 [place], [place] [phone] (Wo rk) 05/30/2022 Office Visit Surgical Oncology Asa Cameron MD 111 [facility] 2 [place], [place] [phone] (Wo rk) documented as of this encounter Visit Diagnoses Diagnosis Malignant neoplasm of breast (HCC) - [facility] Malignant neoplasm of breast (female), u nspecified site documented in this encounter Historical Medications This list may reflect changes made after this encounter. Medication Sig Dispensed Refills Start Date End Date lisdexamfetamine (VYVANSE) Take 30 mg by 0 03/31/2014 30 mg capsule mouth every morning. added in this encounter Care Teams Analytical Lead Relationship Specialty Start Date End Date Evert Perdomo MD PCP - General 10/13/08 05/13/[address] [place] [phone] documented as of this encounter
--- OUTSIDE RECORDS SUMMARY | 2021-11-29 00:30 | XMS_ITS | Encounter Summary ---
:[address] [facility] Address [address] [place] [address] Care Team Providers Name Role Phone Evert Perdomo MD Primary Care Provider Encounter Details Date Type Department Care Team Description 08/19/2012 Phlebotomy Only [facility] Side Stitching Machine Operator, Ethan barrera; - [facility] Outpatient ADHD (attention deficit hype ractivity disorder); [address] [place] [address] Social History Tobacco Use Types Packs/Day Years [...] 111 [facility], [facility] 2 [place], [place] [phone] (Wo rk) 05/30/2022 Office Visit Surgical Oncology Asa Cameron MD [address] [phone] (Wo rk) documented as of this encounter Procedures Procedure Name Priority Date/Time Associated Diagnosis Comme nts LIPID PROFILE Routine 08/19/2012 13:26 Depression Results for this (INCLUDES EDT ADHD (attention procedure ar e in CHOLESTEROL, deficit hyperactivity the re sults TRIGLYCERIDES, disorder) section. HDL, LDL) Healthcare maintenance documented in this encounter Results LIPID PROFILE (INCLUDES CHOLESTEROL, TRIGLYCERIDES, HDL, LDL) (08/19/2012 13:26 EDT) Cholesterol 164 mg/dl [facility] Comment: Desirable:<200 Borderline High:200-239 High:>kr=386 Triglycerides 40 mg/dl [facility] Comment: Normal:<150 Borderline High:150-199 High:200-499 Very High:>gr=351 HDL 79 mg/dl [facility] Comment: Low:<40 Normal:40-60 Desirable: >60 LDL, Calculated 77 mg/dl [facility] Comment: Optimal:<100 Near Optimal:100-129 Borderline High:130-159 High:160-189 Very High:>zn=077 Chol/HDL Ratio 2.1 [facility] Fasting? Unknown [facility] Specimen Blood specimen (specimen) Performing Organization Address City/State/ZIP Code Phon e Number [facility] [address] [place] [address] SERVICES [facility] [address] [place] [address] documented in this encounter Visit Diagnoses Diagnosis Depression Depressive disorder, not elsewhere class ified ADHD (attention deficit hyperactivity di sorder) Attention deficit disorder with hyperact ivity Healthcare maintenance Routine general medical examination at a health care facility documented in this encounter Care Teams Workers Compensation Attorney Relationship Specialty Start Date End Date Evert Perdomo MD PCP - General 10/13/08 05/13/[address] [place] [address] documented as of this encounter
--- OUTSIDE RECORDS SUMMARY | 2021-11-29 00:30 | XMS_ITS | Encounter Summary ---
:1970 Author Organization [facility] Address [address] [place] [address] Care Team Providers Name Role Phone Evert Perdomo MD Primary Care Provider Reason for Visit Reason Onset Date Comments Medications Refill 09/20/2013 Encounter Details Date Type Department Care Team Description 09/20/2013 Refill [facility] Adult Evert Perdomo MD Medications Refill Primary Care - [address] [address] [phone] (Wo rk) Social History Tobacco Use Types [...] Take 1 Cap by 90 Cap 0 201307/13/2014 30 mg capsule mouth every morning for 90 days ID #[id number]. Earliest Fill Date: 09/20/13 documented in this encounter Miscellaneous Notes Telephone Encounter - Elyssa Pal - 09/20/2013 1726 EDT Mailed hard copy. elephone Encounter - Melanie Oconnor RN - 09/20/2013 0959 EDT Spoke with Jia ([facility]) and she said that the prescriptions that were mailed out 09/15 were sent to the wrong address and need to be redone and mailed to the address below. Last script had a start date of 09/12 and was for #90. New order is pended. elephone Encounter - Elyssa Pal - 09/20/2013 0916 EDT [facility] called and they can not filled Vyvanse through a fax. They need the hard copy mailed [facility], [address] [place] [address]. documented in this encounter Plan of Treatment Upcoming Encounters Date Type Specialty Care Team Description 12/16/2021 Appointment Infusion Therapy 04/15/2022 Office Visit Hematology and Oncology Poppy Felton PA-C 111 [facility], [facility], [facility] 2 [place], [place] [phone] (Wo rk) 05/30/2022 Office Visit Surgical Oncology Asa Cameron MD 111 [facility], [facility], Level 2 [place], [place] [phone] (Wo rk) documented as of this encounter Visit Diagnoses Not on filedocumented in this encounter Discontinued Medications Medication Sig Discontinue Reason Start Date End Date lisdexamfetamine (VYVANSE) Take 1 Cap by Reorder 09/12/2013 09/20/2013 30 mg capsule mouth every morning ID #[id number]. Earliest Fill Date: 09/12/13 documented as of this encounter Care Teams Rn Transplant Relationship Specialty Start Date End Date Evert Perdomo MD PCP - General 10/13/08 05/13/[address] [address] documented as of this encounter
--- OUTSIDE RECORDS SUMMARY | 2021-11-29 00:30 | XMS_ITS | Encounter Summary ---
:1970 Author Organization [facility] Address [address] [place] [address] Care Team Providers Name Role Phone Evert Perdomo MD Primary Care Provider Reason for Visit Reason Onset Date Comments Medications Refill 09/03/2012 Encounter Details Date Type Department Care Team Description 09/03/2012 Refill [facility] Adult Evert Perdomo MD Medications Refill Primary Care - [address] [address] [phone] (Wo rk) Social History Tobacco Use Types [...] 1 Tab by mouth 90 Tab 3 09/03/2012 09/12/2013 tablet daily. documented in this encounter Miscellaneous Notes Telephone Encounter - Marilou Bruner - 09/03/2012 7937 EDT Pt requesting refill for: Med & Strength: Tamoxifen 20mg Sig & Quantity: QTY 90, take 1 tablet daily. Last refill: Is the pt out of the medication?: faxed [facility] Last OV w/PCP: 08.11.12 Next OV w/PCP: Visit date not found Marilou Bruner 09/03/2012 14:47 documented in this encounter Plan of Treatment Upcoming Encounters Date Type Specialty Care Team Description 12/16/2021 Appointment Infusion Therapy 04/15/2022 Office Visit Hematology and Oncology Poppy Felton PA-C 111 [facility], [facility] 2 [place], [place] [phone] (Wo rk) 05/30/2022 Office Visit Surgical Oncology Asa Cameron MD 111 [facility] 2 [place], [place] [phone] (Wo rk) documented as of this encounter Visit Diagnoses Not on filedocumented in this encounter Discontinued Medications Medication Sig Discontinue Reason Start Date End Date tamoxifen (NOLVADEX) 20 Take 1 Tab by mouth Reorder 11/18/2011 09/03/2012 mg tablet daily. documented as of this encounter Care Teams Tunnel Mucker Relationship Specialty Start Date End Date Evret Perdomo MD PCP - General 10/13/08 05/13/[address] [address] documented as of this encounter
--- OUTSIDE RECORDS SUMMARY | 2021-11-29 00:30 | XMS_ITS | Encounter Summary ---
:[address] [facility] Address [address] [place] [address] Care Team Providers Name Role Phone Evert Perdomo MD Primary Care Provider Reason for Visit Reason Onset Date Comments Medications Refill 06/15/2013 Encounter Details Date Type Department Care Team Description 06/15/2013 Refill [facility] Adult Evert Perdomo MD Medications Refill Primary Care - [address] [phone] (Wo rk) Social History Tobacco Use Types [...] Take 1 Cap by 90 Cap 0 201309/12/2013 30 mg capsule mouth every morning ID #[id number]. Earliest Fill Date: 06/15/13 documented in this encounter Miscellaneous Notes Telephone Encounter - Mamta Mayorga - 06/16/2013 0950 EDT Mailed to [facility] Telephone Encounter - Charlotte Lynne - 06/15/2013 1450 EDT Medication(s) requested: Vyvanse 30 mg 1 po daily #90 Is the pt out of the medication?: No Pharmacy: [facility] [employer] Last refill date: 02/22/13 Last OV w/PCP: 01/28/13 Next OV w/PCP: Visit date not found Charlotte Lynne 06/15/2013 14:50 documented in this encounter Plan of Treatment Upcoming Encounters Date Type Specialty Care Team Description 12/16/2021 Appointment Infusion Therapy 04/15/2022 Office Visit Hematology and Oncology Poppy Felton PACl 111 [facility], [facility] 2 [place], [place] [phone] (Larissa felder) 05/30/2022 Office Visit Surgical Oncology Asa Cameron MD 111 [facility] 2 [place], [place] [phone] (Larissa felder) documented as of this encounter Visit Diagnoses Not on filedocumented in this encounter Discontinued Medications Medication Sig Discontinue Reason Start Date End Date lisdexamfetamine (VYVANSE) Take 1 Cap by Reorder 02/22/2013 06/15/2013 30 mg capsule mouth every morning. ID #[id number] documented as of this encounter Care Teams Boiler Tester Relationship Specialty Start Date End Date Evert Perdomo MD PCP - General 10/13/08 05/13/[address] [place] [address] documented as of this encounter
--- OUTSIDE RECORDS SUMMARY | 2021-11-29 00:30 | XMS_ITS | Encounter Summary ---
:1970 Author Organization [facility] Address [address] [place] [address] Care Team Providers Name Role Phone Evert Perdomo MD Primary Care Provider Reason for Visit Reason Onset Date Comments Medications Refill 01/20/2012 Encounter Details Date Type Department Care Team Description 01/20/2012 Refill [facility] Adult Evert Perdomo MD Medications Refill Primary Care - [address] [phone] (Wo rk) Social History Tobacco Use Types [...] Take 1 Cap by 84 Cap 0 201105/03/2012 30 mg capsule mouth daily for 84 days. documented in this encounter Miscellaneous Notes Telephone Encounter - Charlotte Lynne - 01/21/2012 0933 EST Script in drawer Telephone Encounter - Mamta Mayorga - 01/20/2012 1446 EST Patient request refill on Vyvanse, gets 3 month suppl documented in this encounter Plan of Treatment Upcoming Encounters Date Type Specialty Care Team Description 12/16/2021 Appointment Infusion Therapy 04/15/2022 Office Visit Hematology and Oncology Poppy Felton, PAChuyC 111 [facility], [address] [phone] (Wo rk) 05/30/2022 Office Visit Surgical Oncology Asa Cameron MD 111 [facility] 2 [place], [place] [phone] (Wo rk) documented as of this encounter Visit Diagnoses Not on filedocumented in this encounter Discontinued Medications Medication Sig Discontinue Reason Start Date End Date lisdexamfetamine (VYVANSE) Take 1 Cap by Reorder 11/18/2011 01/20/2012 30 mg capsule mouth daily for 28 days. documented as of this encounter Care Teams Dye Jig Operator Relationship Specialty Start Date End Date Evert Perdomo MD PCP - General 10/13/08 05/13/[address] [address] documented as of this encounter
--- OUTSIDE RECORDS SUMMARY | 2021-11-29 00:30 | XMS_ITS | Encounter Summary ---
:1970 Author Organization [facility] Address [address] [place] [address] Care Team Providers Name Role Phone Evert Perdomo MD Primary Care Provider Encounter Details Date Type Department Care Team Description 08/16/2012 Results Only [facility] Asa Cameron MD Imaging Surgical Oncology - [address] [place] [address], [address], [address] [place], [place] [address] [place] [phone] (Wo rk) Social History Tobacco Use Types [...] PA-C 111 [facility], [facility] 2 [place], [place] [phone] (Wo rk) 05/30/2022 Office Visit Surgical Oncology Asa Cameron MD [address] [phone] (Wo rk) documented as of this encounter Procedures Procedure Name Priority Date/Time Associated Diagnosis Comme nts [facility] 08/17/2012 12:50 Results for this BREAST-BREAST CARE EDT procedure are in CENTER ONLY the results section. documented in this encounter Results [facility] BREAST-BREAST CARE CENTER ONLY (08/17/2012 12:50 EDT) Anatomical Region Laterality Modality Other Specimen Narrative [facility] - 08/17/2012 12:50 EDT See Notes Tab. Procedure Note 08/17/2012 See Notes Tab. Performing Organization Address City/State/ZIP Code Phon e Number [facility] BREAST IMAGING [facility] documented in this encounter Visit Diagnoses Not on filedocumented in this encounter Care Teams Casing Man Relationship Specialty Start Date End Date Evert Perdomo MD PCP - General 10/13/08 05/13/[address] [address] documented as of this encounter
--- OUTSIDE RECORDS SUMMARY | 2021-11-29 00:30 | XMS_ITS | Encounter Summary ---
:1970 Author Organization [facility] Address [address] [place] [address] Care Team Providers Name Role Phone Evert Perdomo MD Primary Care Provider Reason for Visit Reason Comments Follow-up Encounter Details Date Type Department Care Team Description 01/28/[address] [facility] Asa Cameron MD Malignant neoplasm of Surgical Oncology - [address] [place] [address] breast ([facility]) [facility] (Primary Dx) [address] [place] [address] [address], [place] [phone] (Wo rk) Social History Tobacco Use Types [...] encounter Progress Notes Asa Cameron MD - 01/28/2013 204 EST DIVISION OF SURGICAL ONCOLOGY - [facility] PROGRESS / FOLLOWUP NOTE - 01/28/2013 SUBJECTIVE: The patient is seen in followup for a history of breast cancer. The patient is a 42-year-old woman who in July 2011 had a right breast cancer. She had a right total mastectomy with sentinelnode biopsy and a prophylactic left total mastectomy with bilateral implant reconstructions. Tumor stage was T1cN0. She has been treated with tamoxifen since then. The patient has had an exchange of her implants in the past year and also just had a nipple reconstruction on both sides. OBJECTIVE: On exam today, the patient is in no acute distress. She has no scleral icterus. She has no palpable neck masses. No cervical or supraclavicular lymphadenopathy is noted. There are no thyroidnodules, carotid bruits or JVD. Lungs are clear to auscultation. Heart has a regular rate and rhythmwithout S3, S4 or murmurs. Breast exam reveals bilateral mastectomy incisions, which are well healed. Palpation of the right mastectomy site reveals no palpable abnormalities. There are no palpable lymph nodes in the right axilla. The left mastectomy site has no palpable abnormalities. There are no palpable lymph nodes in the left axilla. There are no abdominal masses, no abdominal tenderness, no hepato or splenomegaly is noted. She has good range of motion of the upper extremities without edema. DIAGNOSTIC DATA: Ultrasound evaluation of the right mastectomy site shows the implant in good position. There are no abnormal findings suspicious for recurrent disease. There are no abnormal lymph nodes in the axilla or internal mammary area. On the left side, again, the implant is in good position. There is no evidence of suspicious findings for recurrent disease. There are no abnormal lymph nodes in the internal mammary or axillary region. ASSESSMENT AND PLAN: The patient is doing well without evidence of recurrent disease. Of note, the patient has moved recently to [place], [place]. She states that she does travel back here a couple timesa year and would like to continue following here. We will plan a repeat followup again in 6 months. If she is going to be a little delayed in getting in we will simply reschedule that as needed. At that point, she will be at 2 years and we can go to once a year followup if everything is doing well. Asa Cameron MD 05 37 PM - Asa Cameron MD tn Dictation ID: [id number] cc: Jessi Pleitez MD, FA - Hematology/Oncology [address] [place] [address] Evert Perdomo MD, [place] [address] Roman Chino MD, FA - Plastic Surgery [address] [facility], [address] [address] Asa Brennan MD - 01/28/2013 1740 EST This office note has been dictated. documented in this encounter Plan of Treatment Upcoming Encounters Date Type Specialty Care Team Description 12/16/2021 Appointment Infusion Therapy 04/15/2022 Office Visit Hematology and Oncology Poppy Felton PA-C [address] [phone] (Wo rk) 05/30/2022 Office Visit Surgical Oncology Asa Cameron MD [address] [phone] (Wo rk) documented as of this encounter Visit Diagnoses Diagnosis Malignant neoplasm of breast (HCC) - [facility] Malignant neoplasm of breast (female), u nspecified site documented in this encounter Historical Medications This list may reflect changes made after this encounter. Medication Sig Dispensed Refills Start Date End Date lisdexamfetamine (VYVANSE) Take 30 mg by 0 01/28/2013 30 mg capsule mouth every morning. added in this encounter Care Teams Fish Technologist Relationship Specialty Start Date End Date Evert Perdomo MD PCP - General 10/13/08 05/13/[address] [place] [address] documented as of this encounter
--- OUTSIDE RECORDS SUMMARY | 2021-11-29 00:30 | XMS_ITS | Encounter Summary ---
:1970 Author Organization [facility] Address [address] [place] [address] Care Team Providers Name Role Phone Evert Perdomo MD Primary Care Provider Reason for Visit Reason Onset Date Comments Medications Refill 01/30/2014 Encounter Details Date Type Department Care Team Description 01/30/2014 Refill [facility] Adult Evert Perdomo MD Medications Refill Primary Care - [address] [phone] (Wo rk) Social History Tobacco Use Types [...] Encounter - Lucero Ly RN - 01/31/2014 0908 EST Duplicate request elephone Encounter - Melanie Oconnor RN - 01/30/2014 1419 EST Last prescription was 10/26, #30, 1 RF. elephone Encounter - Melanie Oconnor RN - 01/30/2014 1418 EST From: Jia Dow To: Evert Perdomo MD Sent: 01/30/2014 14:15 EST Subject: Medication Renewal Request Original authorizing provider: MD Jia Ellis would like a refill of the following medications: LORazepam (ATIVAN) 1 mg tablet [Evert Perdomo MD] Preferred pharmacy: [facility] [address] [place] [address] Comment: documented in this encounter Plan of Treatment Upcoming Encounters Date Type Specialty Care Team Description 12/16/2021 Appointment Infusion Therapy 04/15/2022 Office Visit Hematology and Oncology Poppy Felton PA-C 111 [facility], [facility] 2 [place], [place] [phone] (Wo bradford) 05/30/2022 Office Visit Surgical Oncology Asa Cameron MD 111 [facility], [facility] 2 [place], [place] [phone] (Larissa rk) documented as of this encounter Visit Diagnoses Not on filedocumented in this encounter Care Teams Clinical Rehabilitation Coordinator Relationship Specialty Start Date End Date Evert Perdomo MD PCP - General 10/13/08 05/13/[address] [place] [address] documented as of this encounter
--- OUTSIDE RECORDS SUMMARY | 2021-11-29 00:30 | XMS_ITS | Encounter Summary ---
:1970 Author Organization [facility] Address [address] [place] [address] Care Team Providers Name Role Phone Evert Perdomo MD Primary Care Provider Encounter Details Date Type Department Care Team Description 08/19/2012 Hospital Encounter [facility] - Unknown, Provider, Evert Black MD 108 [facility] [address] [place] [phone] [place], [place] [address] Social History Tobacco Use Types Packs/Day Years [...] Sig Dispensed Refills Start Date End Date FEXOFENADINE HCL (MART Take by mouth as 0 09/19/2014 ORAL) needed. fluticasone (FLONASE) 50 50 mcg by Nasal 0 02/22/2014 mcg/actuation nasal spray route 2 times daily as needed. lisdexamfetamine (VYVANSE) Take 1 Cap by 90 Cap 0 201210/26/2012 30 mg capsule mouth daily for 90 days. lorazepam (ATIVAN) 1 mg Take 1 Tab by 30 Tab 1 2 10/26/2012 tablet mouth 2 times daily as needed for Anxiety (PMS). tamoxifen (NOLVADEX) 20 mg Take 1 Tab by 90 Tab 3 201109/03/2012 tablet mouth daily. traZODone (DESYREL) 50 mg Take 1.5 Tabs by 135 Tab 0 06/2510/26/2012 tablet mouth at bedtime. [id number] by mouth. documented as of this encounter Discharge Disposition Disposition Code Departure Means Destination Auto Discharge Home documented in this encounter Plan of Treatment Upcoming Encounters Date Type Specialty Care Team Description 12/16/2021 Appointment Infusion Therapy 04/15/2022 Office Visit Hematology and Oncology Poppy Felton, PAChuyC [address] [phone] (Wo rk) 05/30/2022 Office Visit Surgical Oncology Asa Cameron MD [address] [phone] (Wo rk) documented as of this encounter Procedures Procedure Name Priority Date/Time Associated Diagnosis Comme [facility] 02/12/2015 16:08 Results for this BREAST-BREAST CARE EST procedure are in CENTER ONLY the results section. [facility] 02/20/2014 14:11 Results for this BREAST-BREAST CARE EST procedure are in CENTER ONLY the results section. [facility] 01/28/2013 13:16 Results for this BREAST-BREAST CARE EST procedure are in CENTER ONLY the results section. documented in this encounter Results [facility] BREAST-BREAST CARE CENTER ONLY (02/12/2015 16:08 EST) Anatomical Region Laterality Modality Other Specimen Narrative [facility] BREAST IMAGING [facility] - 02/12/2015 16:08 EST See Notes Tab. Procedure Note SEQUINS SLINGER, IMAGING - 02/12/2015 See Notes Tab. Performing Organization Address City/State/ZIP Code Phon e Number [facility] BREAST IMAGING [facility] BREAST-BREAST CARE CENTER ONLY (02/20/2014 14:11 EST) Anatomical Region Laterality Modality Other Specimen Narrative [facility] BREAST IMAG[facility] - 02/20/2014 14:11 EST See Notes Tab. Procedure Note 02/20/2014 See Notes Tab. Performing Organization Address City/State/ZIP Code Phon e Number [facility] BREAST IMAG[facility] BREAST[facility]BREAST [facility]ARE C[facility] ONLY (01/28/2013 13:16 EST) Anatomical Region Laterality Modality Other Specimen Narrative [facility] RAD[facility] - 01/28/2013 13:16 EST See Notes Tab. Procedure Note 01/28/2013 See Notes Tab. Performing Organization Address City/State/ZIP Code Phon e Number [facility] BREAST IMAGING MAIN [facility] documented in this encounter Visit Diagnoses Not on filedocumented in this encounter Care Teams Horse Racetrack Manager Relationship Specialty Start Date End Date Evert Perdomo MD PCP - General 10/13/08 05/13/[address] [place] [address] documented as of this encounter
--- OUTSIDE RECORDS SUMMARY | 2021-11-29 00:30 | XMS_ITS | Encounter Summary ---
:1970 Author Organization [facility] Address [address] [place] [address] Care Team Providers Name Role Phone Evert Perdomo MD Primary Care Provider Reason for Visit Reason Comments MEDICATION CHECK ADHD Medication Questions ? vision testing Encounter Details Date Type Department Care Team Description 11/18/2011 Office Visit [facility] Evert Perdomo [facility] ncer ([facility]); Adult Primary Care - MD Teo Depression; Hallie 108 [facility] ADHD (attention deficit hyperactivity di sorder); 87 [facility] [address] PMS (premenstrual syndrome) [place], [place] [id number] [place] [address] Social History Tobacco Use Types Packs/Day Years [...] Sign Reading Time Taken Comments Blood Pressure 110/60 11/18/2011 1418 EDT left arm Pulse 68 11/18/2011 1418 EDT Temperature - - Respiratory Rate - - Oxygen Saturation - - Inhaled Oxygen Concentration - - Weight 62.1 kg (137 lb) 11/18/2011 1418 EDT Height 168.9 cm (5' 6.5) 11/18/2011 1418 EDT Body Mass Index 21.78 11/18/2011 1418 EDT documented in this encounter [...] Take 1 Cap by 84 Cap 0 201101/20/2012 30 mg capsule mouth daily for 28 days. tamoxifen (NOLVADEX) 20 mg Take 1 Tab by 90 Tab 3 201109/03/2012 tablet mouth daily. lorazepam (ATIVAN) 1 mg Take 1 Tab by 30 Tab 1 2 10/26/2012 tablet mouth 2 times daily as needed for Anxiety (PMS). documented in this encounter Discharge Disposition Disposition Code Departure Means Destination Auto Discharge documented in this encounter Progress Notes Evert Perdomo MD - 11/19/2011 0831 EDT Primary Care Internal Medicine [address] [place] [id number] PROGRESS/FOLLOWUP NOTE - 11/18/2011 PROBLEM: ADHD. PROBLEM: Depression. PROBLEM: Anxiety. PROBLEM: Invasive adenocarcinoma right breast, identified palpable mass 07/04. a. Total mastectomy and prophylactic mastectomy 08/13/01 with pathology revealing 1.2 cm invasive ductal carcinoma, right breast, well-differentiated, lymphovascular invasion identified, negative nodes,ER and NC strongly positive, HER-2 negative. b. Tamoxifen therapy 08/2011. c. Family history of breast cancer. SUBJECTIVE: As per the list above, the patient has had all of her interventions performed regarding her breast cancer diagnosed here in July. She has seen Dr Schuster at [facility] and all have agreed that chemotherapy will not be necessary at this time in terms of the risk/benefit ratio and she will continue on 5 years of tamoxifen. She continues on Vyvanse successfully for ADHD. She is now off Wellbutrin due to the interaction with tamoxifen and is only on trazodone and sleep is going well and shefeels mood is going well as well. The only thing she does notice is PMS has become more problematic,especially about 3 or 4 days a month. This has caused a transient mood issue. She has gotten mild hot flashes from the tamoxifen as well. She is also off her control pills, which have led to the PMS abnormality. She otherwise feels physically quite well other than some nasal allergies for which Flonase is being used. OBJECTIVE: Weight 137, which is stable. Pulse 68, regular. Blood pressure 110/60. Spirits seem excellent. ASSESSMENT: 1. Breast cancer -- undergoing tamoxifen therapy for what should hopefully be a very positive prognosis malignancy. 2. ADHD -- stable on current therapy. 3. Depression, anxiety -- stable on current therapy 4. PMS -- aggravated due to the discontinuation of control pills and Wellbutrin, but should bereadily helpful during the course of the month. PLAN: A. Return in 6 months, sooner p.r.n. She may need a preoperative evaluation here in the near future. B. Continue Vyvanse and trazodone. B2. Calvin Ativan 1 mg 1 to 2 times daily during the 3 to 4 days a month that it is needed. Electronically Signed by Evert Perdomo MD 11/19/2011 15:57 Evert Perdomo MD - Evert Perdomo MD - CD Job ID: SM Doc ID: [id number] Ext Doc ID: [id number] cc: Evert Mora MD - 11/18/2011 1430 EDT .dict documented in this encounter Plan of Treatment Upcoming Encounters Date Type Specialty Care Team Description 12/16/2021 Appointment Infusion Therapy 04/15/2022 Office Visit Hematology and Oncology Poppy Felton PA-C 111 [facility], [facility] 2 [place], [place] [address] (Wo rk) 05/30/2022 Office Visit Surgical Oncology Asa Cameron MD 111 [facility], [facility] 2 [place] [address] (Wo rk) documented as of this encounter Visit Diagnoses Diagnosis Breast cancer (HCC-CMS) (HCC) Malignant neoplasm of breast (female), u nspecified site Depression Depressive disorder, not elsewhere class ified ADHD (attention deficit hyperactivity di sorder) Attention deficit disorder with hyperact ivity PMS (premenstrual syndrome) Premenstrual tension syndromes documented in this encounter Discontinued Medications Medication Sig Discontinue Reason Start Date End Date DIAZepam (VALIUM) 5 mg Take 1 Tab by 08/20/201110/25 tablet mouth every 6 hours as needed for Anxiety. zolpidem (AMBIEN) 10 mg Take 1 Tab by 09/25/2011 tablet mouth at bedtime as needed for Sleep. Take one half to one tab at bedtime as needed for sleep. tamoxifen (NOLVADEX) 20 mg Take 20 mg by Reorder 11/18/2011 tablet mouth daily. lisdexamfetamine (VYVANSE) Take 1 Cap by Reorder 10/28/2011 11/18/2011 30 mg capsule mouth daily for 28 days. documented as of this encounter Care Teams Outside Sales Executive Relationship Specialty Start Date End Date Evert Perdomo MD PCP - General 10/13/08 05/13/[address] [address] documented as of this encounter
--- OUTSIDE RECORDS SUMMARY | 2021-11-29 00:30 | XMS_ITS | Encounter Summary ---
:1970 Author Organization [facility] Address [address] [place] [address] Care Team Providers Name Role Phone Evert Perdomo MD Primary Care Provider Reason for Visit Reason Onset Date Comments Medications Refill 09/12/2013 Encounter Details Date Type Department Care Team Description 09/12/2013 Refill [facility] Adult Evert Perdomo MD Medications Refill Primary Care - [address] [address] [phone] (Wo rk) Social History Tobacco Use Types [...] Take 1 Cap by 90 Cap 0 201309/20/2013 30 mg capsule mouth every morning ID #[id number]. Earliest Fill Date: 09/12/13 tamoxifen (NOLVADEX) 20 mg Take 1 Tab by 90 Tab 3 201308/14/2014 tablet mouth daily. documented in this encounter Miscellaneous Notes Telephone Encounter - Audelia Martínez - 09/15/2013 1519 EDT Per [facility]: Sript cannot be faxed to [facility] as it is a controlled medication. Called patient and she states to mail the script to [facility] Script mailed to [facility] in postage paid envelope elephone Encounter - Audelia Martínez - 09/15/2013 1336 EDT Script faxed to [facility] elephone Encounter - Elyssa Pal - 09/12/2013 1353 EDT Medication(s) requested: lisdexamfetamine 30 mg capsule, take 1 daily, 90, last refill 4.23.14 this is mailed to [facility]. Tamoxifen 20 mg tablet, take 1 tab daily, 90 last refill 7..13. Is the pt out of the medication?: no Pharmacy: [facility] Last refill date: Last OV w/PCP: 12.6. Next OV w/PCP: Visit date not found Elyssa Pal 09/12/2013 13:53 documented in this encounter Plan of Treatment Upcoming Encounters Date Type Specialty Care Team Description 12/16/2021 Appointment Infusion Therapy 04/15/2022 Office Visit Hematology and Oncology Poppy Felton PA-C 111 [facility] 2 [place], [place] [phone] (Wo rk) 05/30/2022 Office Visit Surgical Oncology Asa Cameron MD 111 [facility] 2 [place], [place] [address] (Wo rk) documented as of this encounter Visit Diagnoses Not on filedocumented in this encounter Discontinued Medications Medication Sig Discontinue Reason Start Date End Date tamoxifen (NOLVADEX) 20 mg Take 1 Tab by Reorder 09/03/2012 09/12/2013 tablet mouth daily. lisdexamfetamine (VYVANSE) Take 1 Cap by Reorder 06/15/2013 09/12/2013 30 mg capsule mouth every morning ID #[id number]. Earliest Fill Date: 06/15/13 documented as of this encounter Care Teams Seat Nailer Relationship Specialty Start Date End Date Evert Perdomo MD PCP - General 10/13/08 05/13/[address] [id number] documented as of this encounter
--- OUTSIDE RECORDS SUMMARY | 2021-11-29 00:30 | XMS_ITS | Encounter Summary ---
:1970 Author Organization [facility] Address [address] [place] [address] Care Team Providers Name Role Phone Evert Perdomo MD Primary Care Provider Reason for Visit Reason Onset Date Comments Appointment Related 11/26/2011 today Encounter Details Date Type Department Care Team Description 11/26/2011 Telephone [facility] Jessi Pleitez MD PhD Appointment Related Hematology & Oncology 111 [facility] (today) - [facility], [address], [address] [place], [place] [address] [place] [address] [phone] (Wo rk) Social History Tobacco Use [...] encounter Miscellaneous Notes Telephone Encounter - Neha Macdonald RN - 11/26/2011 1139 EDT Pt will be seen at 12:[address] Pleitez. Pt notified. 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 Please call pt. Thanks documented in this encounter Plan of Treatment Upcoming Encounters Date Type Specialty Care Team Description 12/16/2021 Appointment Infusion Therapy 04/15/2022 Office Visit Hematology and Oncology Poppy Felton PA-C 111 [facility], [facility] 2 [place], [place] [phone] (Wo rk) 05/30/2022 Office Visit Surgical Oncology Asa Cameron MD 111 [facility] 2 [place], [place] [address] (Wo rk) documented as of this encounter Visit Diagnoses Not on filedocumented in this encounter Care Teams Maintenance Service Technician Relationship Specialty Start Date End Date Evert Perdomo MD PCP - General 10/13/08 05/13/[address] [address] documented as of this encounter
--- OUTSIDE RECORDS SUMMARY | 2021-11-29 00:30 | XMS_ITS | Encounter Summary ---
:1970 Author Organization [facility] Address [address] [place] [address] Care Team Providers Name Role Phone Evert Perdomo MD Primary Care Provider Encounter Details Date Type Department Care Team Description 11/21/2011 Hospital Encounter [facility] - Unknown, Brooke Chahal MD [address] [place] [address] Road [phone] [place] [address] (Work) [phone] Social History Tobacco Use Types Packs/Day Years [...] needed. lisdexamfetamine (VYVANSE) Take 1 Cap by 84 Cap 0 201101/20/2012 30 mg capsule mouth daily for 28 days. lorazepam (ATIVAN) 1 mg Take 1 Tab by 30 Tab 1 2 10/26/2012 tablet mouth 2 times daily as needed for Anxiety (PMS). tamoxifen (NOLVADEX) 20 mg Take 1 Tab by 90 Tab 3 201109/03/2012 tablet mouth daily. trazodone (DESYREL) 50 mg Take 1.5 Tabs by 135 Tab 1 10/2406/11/2012 tablet mouth at bedtime. [id number] by mouth. documented as of this encounter Discharge Disposition Disposition Code Departure Means Destination Home or Self Senior Living documented in this encounter Plan of Treatment Upcoming Encounters Date Type Specialty Care Team Description 12/16/2021 Appointment Infusion Therapy 04/15/2022 Office Visit Hematology and Oncology Poppy Felton, PAChuyC 111 [facility] 2 [place], [place] [address] (Wo rk) 05/30/2022 Office Visit Surgical Oncology Asa Cameron MD 111 [facility] 2 [place], [place] [phone] (Wo rk) documented as of this encounter Visit Diagnoses Not on filedocumented in this encounter Care Teams Junior Buyer Relationship Specialty Start Date End Date Evert Perdomo MD PCP - General 10/13/08 05/13/[address] [address] documented as of this encounter
--- OUTSIDE RECORDS SUMMARY | 2021-11-29 00:30 | XMS_ITS | Encounter Summary ---
:1970 Author Organization [facility] Address [address] [place] [address] Care Team Providers Name Role Phone Evert Perdomo MD Primary Care Provider Reason for Visit Reason Comments Gynecologic Exam pap? Encounter Details Date Type Department Care Team Description 01/28/2013 Office Visit [facility] Evert Perdomo Cervical cancer screening (Primary Dx); Adult Primary Care - MD Teo Depression; Hallie 108 [facility] ADHD (attention deficit hyperactivity di sorder); 87 [facility] [address] Malignant neoplasm of breast ([facility]) [place], [place] [address] [place] [address] Social History Tobacco Use Types Packs/Day Years [...] Sign Reading Time Taken Comments Blood Pressure 100/58 01/28/2013 1404 EST Pulse 78 01/28/2013 1404 EST Temperature 36.5 ??C (97.7 ??F) 01/28/2013 1404 EST Respiratory Rate 14 01/28/2013 1404 EST Oxygen Saturation - - Inhaled Oxygen Concentration - - Weight 64.4 kg (142 lb) 01/28/2013 1404 EST Height 167.6 cm (5' 6) 01/28/2013 1404 EST Body Mass Index 22.92 01/28/2013 1404 EST documented in this encounter Functional Status Cognitive Status Response Date of Assessment Because of a physical, mental, or emotional condition, do Ye s 08/15/2011 you have serious difficulty concentrating, remembering, or making decisions? (5 years old or older) documented as of this encounter Ordered Prescriptions Prescription Sig Dispensed Refills Start Date End Date lisdexamfetamine (VYVANSE) Take 1 Cap by 30 Cap 0 201202/22/2013 30 mg capsule mouth every morning. traZODone (DESYREL) 100 mg Take 1 Tab by 30 Tab 2 201201/30/2014 tablet mouth at bedtime. traZODone (DESYREL) 100 mg Take 1 Tab by 90 Tab 3 201201/29/2014 tablet mouth at bedtime. documented in this encounter Progress Notes Taylor Linares LPN - 01/28/2013 1531 EST Present in room as director of financial planning during pelvic exam. Evert Borjas MD - 01/28/2013 1440 EST PROBLEM: ADHD. PROBLEM: Depression, anxiety. PROBLEM: Breast cancer. SUBJECTIVE: The patient is home for a brief time from [place]. Things have generally been going well except for sleep. In November she started using light therapy to avert SAD, and this has helps her mood quite a bit and she feels her mood is still doing well. However, around that time, she started having more sleep difficulties. 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 She also has her usual anxiety about her kids. She finds there are times she cannot fall asleep well and may only sleep 3 to 4 hours that night, other times she can sleep 6 or 7. She rarely uses lorazepam but is more often using 75 mg on Trazodone. She reports the back pain, we discussed at last visit, has resolved and she is exercising again, though finding the altitude challenging. She has no other new symptoms. She saw Dr Cameron today, who performed an ultrasound of her breasts, which were unremarkable. She would like to have a pelvic exam as part of screening for ovarian and endometrial CA. OBJECTIVE: Weight stable 142, pulse 78 regular, blood pressure 100/58. The patient looks well, but is mildly anxious per usual. Neck without mass or thyromegaly. Lungs clear. Heart regular. Abdomen is benign. Extremities: No edema. Pelvic exam reveals no abnormalities on bimanual and the speculum examis not performed as she had a Pap smear 1 year ago. ASSESSMENT: 1. Psychologically -- ADHD, anxiety, depression, all very stable. 2. Sleep disorder, most likely related to anxiety and life events. 3. Breast cancer with no evidence of disease on tamoxifen therapy over 1 year now. PLAN: A1: Return in 6 months. A2: No studies needed at this time. B1: Consistent dose of 100 mg nightly Trazodone. B2. Continue Vyvanse. B3. Continue rare use of Lorazepam. documented in this encounter Plan of Treatment Upcoming Encounters Date Type Specialty Care Team Description 12/16/2021 Appointment Infusion Therapy 04/15/2022 Office Visit Hematology and Oncology Poppy Felton PA-C 111 [facility] 2 [place], [place] [phone] (Larissa felder) 05/30/2022 Office Visit Surgical Oncology Asa Cameron MD 111 [facility] 2 [place], [place] [phone] (Wo rk) documented as of this encounter Visit Diagnoses Diagnosis Cervical cancer screening - Primary Screening for malignant neoplasm of the cervix Depression Depressive disorder, not elsewhere class ified ADHD (attention deficit hyperactivity di sorder) Attention deficit disorder with hyperact ivity Malignant neoplasm of breast (HCC) Malignant neoplasm of breast (female), u nspecified site documented in this encounter Discontinued Medications Medication Sig Discontinue Reason Start Date End Date traZODone (DESYREL) 50 mg Take 1.5 Tabs by 10/26/2012 01/28/2013 tablet mouth at bedtime. [id number] by mouth. lisdexamfetamine (VYVANSE) Take 30 mg by Reorder 01/28/2013 30 mg capsule mouth every morning. documented as of this encounter Historical Medications This list may reflect changes made after this encounter. Medication Sig Dispensed Refills Start Date End Date Cholecalciferol, Vitamin Take 800 Units by 0 09/19/2014 D3, 400 unit tablet mouth daily. Pocahontas-3 Fatty Take by mouth. 0 015 Acids-Vitamin E (FISH OIL) 1,000 mg capsule added in this encounter Care Teams Wardrobe Manager Relationship Specialty Start Date End Date Evert Perdomo MD PCP - General 10/13/08 05/13/[address] [place] [address] documented as of this encounter
--- OUTSIDE RECORDS SUMMARY | 2021-11-29 00:30 | XMS_ITS | Encounter Summary ---
:1970 Author Organization [facility] Address [address] [place] [address] Care Team Providers Name Role Phone Evert Perdomo MD Primary Care Provider Reason for Visit Reason Onset Date Comments Back Pain 10/12/2012 Encounter Details Date Type Department Care Team Description 10/12/2012 Telephone [facility] Jessi Pleitez MD PhD Back Pain Hematology & Oncology - [address] [place] [address], [address] [place], [place] [address] [place] [phone] (Wo rk) Social History Tobacco Use [...] Telephone Encounter - Jenn Mock RN - 10/13/2012 0922 EDT Ms. Dow has experienced persistent back pain at the mid thoracic area below the scapulae, able topinpoint the precise area of pain; onset approximately five to six weeks ago with no improvement over time. She notes that the pain worsens as each day progresses. Recent plain films reveals an isolated white spot that was reported as not suggestive of bone cancer. Per Dr. Pleitez, Ms. Dow has been advised to have a bone scan done through her local physician. elephone Encounter - Shea Mares - 10/12/2012 1549 EDT Per pt, has been having persistent back pain for 5 to 6 weeks now. Per pt, it is painful to the touch and with some movements. Per pt, it is worse later in the day than in the a.m. Per pt, living in [place] right now. Per pt, not seeing an Oncologist there. Per pt, wondering if she should have a bonescan done. Patient was made aware to expect a call back with in 24hrs. documented in this encounter Plan of Treatment Upcoming Encounters Date Type Specialty Care Team Description 12/16/2021 Appointment Infusion Therapy 04/15/2022 Office Visit Hematology and Oncology Poppy Felton PA-C [address] [place] [address], [facility] 2 [place], [place] [phone] (Wo rk) 05/30/2022 Office Visit Surgical Oncology Asa Cameron MD 111 [facility], [facility], Level [address] [place] [phone] (Wo rk) documented as of this encounter Visit Diagnoses Not on filedocumented in this encounter Care Teams Court Registry Officer Relationship Specialty Start Date End Date Evert Perdomo MD PCP - General 10/13/08 05/13/[address] [phone] documented as of this encounter
--- OUTSIDE RECORDS SUMMARY | 2021-11-29 00:30 | XMS_ITS | Encounter Summary ---
:1970 Author Organization [facility] Address [address] [place] [address] Care Team Providers Name Role Phone Evert Perdomo MD Primary Care Provider Reason for Visit Reason Onset Date Comments Update 10/14/2012 Encounter Details Date Type Department Care Team Description 10/14/[address] [facility] Cancer Center Jessi Pleitez MD PhD Update Hematology & Oncology - [address] [place] [address], [address] [place], [place] [phone] [place] [phone] (Wo rk) Social History Tobacco Use [...] Telephone Encounter - Jenn Mock RN - 10/19/2012 1223 EDT Ms. Dow clarifies that a recent bone scan performed at the [place], [place], was normal. She requests no other follow up at this time and has been reassured that Dr. Pleitez will be informed. elephone Encounter - Ashtyn Hayes - 10/14/2012 1646 EDT Patient had a bone scan done today at [facility] and would like to please take a look at it today if possible as it is being faxed over. Patient informed she may not be able to getback to her today but within 24hrs. Thanks documented in this encounter Plan of Treatment Upcoming Encounters Date Type Specialty Care Team Description 12/16/2021 Appointment Infusion Therapy 04/15/2022 Office Visit Hematology and Oncology Poppy Felton PA-C [address] [phone] (Wo rk) 05/30/2022 Office Visit Surgical Oncology Asa Cameron MD [address] [phone] (Wo rk) documented as of this encounter Visit Diagnoses Not on filedocumented in this encounter Care Teams Linux Architect Relationship Specialty Start Date End Date Evert Perdomo MD PCP - General 10/13/08 05/13/[address] [place] [address] documented as of this encounter
--- OUTSIDE RECORDS SUMMARY | 2021-11-29 00:30 | XMS_ITS | Encounter Summary ---
:1970 Author Organization [facility] Address [address] [place] [address] Care Team Providers Name Role Phone Evert Perdomo MD Primary Care Provider Reason for Visit Reason Onset Date Comments Medications Refill 03/30/2014 Encounter Details Date Type Department Care Team Description 03/30/2014 Refill [facility] Adult Evert Perdomo MD Medications Refill Primary Care - [address] [phone] (Wo rk) Social History Tobacco Use Types [...] (DESYREL) 100 mg TAKE 1 TABLET AT 2 Tab 0 06/201404/19/2014 tablet BEDTIME. documented in this encounter Miscellaneous Notes Telephone Encounter - Mamta Mayorga - 03/30/2014 1608 EST Medication(s) requested: trazadone 100mg Is the pt out of the medication?: Yes Patient just flew in from [place] and the air line lost her bags, can she get an order for 1 or 2 tabs, she is hoping to get her bags back tomorrow Pharmacy: [facility] Last refill date: Last OV w/PCP: Next OV w/PCP: Visit date not found Mamta Mayorga 03/30/2014 16:08 documented in this encounter Plan of Treatment Upcoming Encounters Date Type Specialty Care Team Description 12/16/2021 Appointment Infusion Therapy 04/15/2022 Office Visit Hematology and Oncology Poppy Felton PA-C 111 [facility], [facility] 2 [place], [place] [phone] (Wo rk) 05/30/2022 Office Visit Surgical Oncology Asa Cameron MD 111 [facility], [facility] 2 [place], [place] [phone] (Wo rk) documented as of this encounter Visit Diagnoses Not on filedocumented in this encounter Discontinued Medications Medication Sig Discontinue Reason Start Date End Date traZODone (DESYREL) 100 TAKE 1 TABLET AT Reorder 01/29/2014 03/30/2014 mg tablet BEDTIME documented as of this encounter Care Teams Brand Lead Relationship Specialty Start Date End Date Evert Perdomo MD PCP - General 10/13/08 05/13/[address] [address] documented as of this encounter
--- OUTSIDE RECORDS SUMMARY | 2021-11-29 00:30 | XMS_ITS | Encounter Summary ---
:1970 Author Organization [facility] Address [address] [place] [address] Care Team Providers Name Role Phone Evert Perdomo MD Primary Care Provider Reason for Visit Reason Comments ADHD - Inattentive Type Sleep Problems Encounter Details Date Type Department Care Team Description 11/07/2011 [facility] Nito Xiao Att ention deficit disorder without mention of hyperactivity; Psychiatry - S Persistent disorder of initiating or rossana ntaining sleep [place] [address] [address] [facility] [place] [address] (Wo rk) Social History Tobacco Use Types [...] Hematology and Oncology Poppy Felton PA-C [address] [phone] (Wo rk) 05/30/2022 Office Visit Surgical Oncology Asa Cameron MD [address] [phone] (Wo rk) documented as of this encounter Visit Diagnoses Diagnosis Attention deficit disorder without menti on of hyperactivity Persistent disorder of initiating or rossana ntaining sleep documented in this encounter Care Teams Licensed Mortician Relationship Specialty Start Date End Date Evert Perdomo MD PCP - General 10/13/08 05/13/[address] [phone] documented as of this encounter
--- OUTSIDE RECORDS SUMMARY | 2021-11-29 00:30 | XMS_ITS | Encounter Summary ---
:1970 Author Organization [facility] Address [address] [place] [address] Care Team Providers Name Role Phone Evert Perdomo MD Primary Care Provider Reason for Visit Reason Onset Date Comments Other 12/23/2011 Encounter Details Date Type Department Care Team Description 12/23/2011 Telephone [facility] Plastic, [place], Other Reconstructive & Cosmetic MD [facility] Surgery [address], [place] [address] [facility] [place] [address] [phone] Social History Tobacco Use Types Packs/Day Years [...] encounter Miscellaneous Notes Telephone Encounter - Neha Wheatley, RN - 12/23/2011 1423 EDT Per documentation in [facility]ISM, she has 250 cc in each tissue internal audit senior manager. This information was given to Jia. elephone Encounter - Estela Pryor - 12/23/2011 1142 EDT Pt called and wanted to know how much fill is in her tissue expanders? documented in this encounter Plan of Treatment Upcoming Encounters Date Type Specialty Care Team Description 12/16/2021 Appointment Infusion Therapy 04/15/2022 Office Visit Hematology and Oncology Poppy Felton, SHAHAB 111 [facility], [facility] 2 [place], [place] [phone] (Wo rk) 05/30/2022 Office Visit Surgical Oncology Asa Cameron MD 111 [facility], [facility] 2 [place], [place] [phone] (Wo rk) documented as of this encounter Visit Diagnoses Not on filedocumented in this encounter Care Teams Global Chief Creative Officer Relationship Specialty Start Date End Date Evert Perdomo MD PCP - General 10/13/08 05/13/[address] [address] documented as of this encounter
--- OUTSIDE RECORDS SUMMARY | 2021-11-29 00:30 | XMS_ITS | Encounter Summary ---
:1970 Author Organization [facility] Address [address] [place] [address] Care Team Providers Name Role Phone Evert Perdomo MD Primary Care Provider Reason for Visit Reason Onset Date Comments Appointment Related 08/01/2013 CANCEL 08/23 Returning Call 08/01/2013 Mine Appointment Related 08/03/2013 Encounter Details Date Type Department Care Team Description 08/01/2013 Telephone [facility] Asa Cameron MD Appointment Related Surgical Oncology - 111 [facility] (CANCEL 08/23); [place], [place] Returning Call (Mine); 111 [facility], Level 2 Appointment Related [place], [place] [phone] [place] [phone] (Wo rk) Social History Tobacco Use Types [...] Notes Telephone Encounter - Nelly Floyd - 08/04/2013 1112 EDT Left patient a message that Dr. Cameron is not in clinic next week and to call back so we could discuss a different date and time and that we have canceled her appointment for today. elephone Encounter - Audelia Heaton V. - 08/03/2013 1436 EDT 6.12 not good day for patient. Next week better. elephone Encounter - Maria D Zapien - 08/02/2013 1648 EDT Pt returning Mine's call. States she will be in [place] on 08/04. Dates that work best 08/03, 08/08-17-18. Please call. elephone Encounter - Mine Chavez - 08/02/2013 1212 EDT Called patient and left message that I could put her in between patients on 08/04 at 1:15. Told patient to call and confirm. elephone Encounter - Cristobal Bella - 08/01/2013 1626 EDT Pt called to cancel 08/23 appt. Pt states she goes back to [place] 6/19 and needs appt prior to leaving, although 08/04- are unavailable. Please call to advise. documented in this encounter Plan of Treatment Upcoming Encounters Date Type Specialty Care Team Description 12/16/2021 Appointment Infusion Therapy 04/15/2022 Office Visit Hematology and Oncology Poppy Felton, PAChuyC 111 [facility] 2 [place] [phone] (Wo rk) 05/30/2022 Office Visit Surgical Oncology Asa Cameron MD [address] [phone] (Wo rk) documented as of this encounter Visit Diagnoses Not on filedocumented in this encounter Care Teams Ladle Cleaner Relationship Specialty Start Date End Date Evert Perdomo MD PCP - General 10/13/08 05/13/[address] [address] documented as of this encounter
--- OUTSIDE RECORDS SUMMARY | 2021-11-29 00:30 | XMS_ITS | Encounter Summary ---
:1970 Author Organization [facility] Address [address] [place] [address] Care Team Providers Name Role Phone Evert Perdomo MD Primary Care Provider Reason for Visit Reason Comments Follow-up Encounter Details Date Type Department Care Team Description 02/20/2012 Office Visit [facility] Asa Cameron MD Malignant neoplasm of Surgical Oncology - [address] [place] [address] breast ([facility]) [facility] (Primary Dx) [address] [place] [address] [address], [place] [phone] (Wo rk) Social History Tobacco Use Types [...] encounter Progress Notes Asa Cameron MD - 02/23/2012 0810 EST DIVISION OF SURGICAL ONCOLOGY - BREAST [facility] PROGRESS/FOLLOWUP NOTE - 02/20/2012 PROBLEM: The patient is seen in followup for history of breast cancer. SUBJECTIVE: The patient is a 41-year-old woman who in July of 2011 was found to have a right breast cancer. The patient opted to have a right total mastectomy with sentinel lymph node biopsy and a prophylactic left total mastectomy. She had implant reconstructions done at the same time. Tumor stage was T1cN0 on the right. The patient has been on tamoxifen since that time. The patient has been doing relatively well, has no complaints. She, in December, had her permanent implants placed and is doing well from that. OBJECTIVE: On exam today, she is in no distress, has no scleral icterus. There are no palpable neck masses. No cervical or supraclavicular lymphadenopathy is noted. There are no thyroid nodules, carotid bruits, or JVD. Lungs are clear to auscultation. Heart has a regular rate and rhythm without S3, S4, or murmurs. Breast exam reveals bilateral mastectomies with implant reconstructions. Palpation of the right side reveals no palpable abnormalities. The implant is in good position. There are no palpable lymph nodes in the axilla. On the left side, there are no palpable abnormalities. The implant is in good position. There are no palpable lymph nodes in the left axilla. There are no abdominal masses,no abdominal tenderness, no hepato or splenomegaly is noted. She has good range of motion of the upper extremities without lymphedema. DIAGNOSTIC DATA: Ultrasound of the right side demonstrates the implant in good position. There is noevidence of local recurrence in the mastectomy site. No abnormal lymph nodes are seen in the axilla or internal mammary area. Left side was examined. Again, the implant is in good position. There is noevidence of local recurrence in the mastectomy site. No abnormal lymph nodes are seen in the internal mammary or axillary region. ASSESSMENT: The patient is doing well without evidence of recurrent disease. PLAN: The plan is to have her return for a followup again in 6 months. Electronically Signed by Asa Cameron MD 02/23/2012 15:01 Asa Cameron MD - Asa Cameron MD - Job ID: SM Doc ID: [id number] Ext Doc ID: [id number] cc: MD Evert Ames MD Robert D Nesbit, MD Asa Brennan MD - 02/20/2012 1739 EST This office note has been dictated. documented in this encounter Plan of Treatment Upcoming Encounters Date Type Specialty Care Team Description 12/16/2021 Appointment Infusion Therapy 04/15/2022 Office Visit Hematology and Oncology Poppy Felton PA-C [address] [phone] (Wo rk) 05/30/2022 Office Visit Surgical Oncology Asa Cameron MD [address] [phone] (Wo rk) documented as of this encounter Visit Diagnoses Diagnosis Malignant neoplasm of breast (HCC) - Nicole rizo Malignant neoplasm of breast (female), u nspecified site documented in this encounter Care Teams Catalogue Illustrator Relationship Specialty Start Date End Date Evert Perdomo MD PCP - General 10/13/08 05/13/[address] [address] documented as of this encounter
--- OUTSIDE RECORDS SUMMARY | 2021-11-29 00:30 | XMS_ITS | Encounter Summary ---
:1970 Author Organization [facility] Address [address] [place] [address] Care Team Providers Name Role Phone Evert Perdomo MD Primary Care Provider Reason for Visit Reason Onset Date Comments Results 11/05/2012 Encounter Details Date Type Department Care Team Description 11/05/2012 Telephone [facility] Adult Evert Perdomo MD Results Primary Care - [phone] [place] [phone] (Wo rk) Social History Tobacco Use Types [...] Notes Telephone Encounter - Mamta Mayorga - 11/05/2012 0905 EDT Images from the original note were not included. From: Jia Dow [[email or web address]] Sent: October 4:29 PM To: Evert Perdomo Subject: Fw: Radiology Report Hello Dr. Perdomo, Thanks for meeting with me at my appointment on October 26. Per our conversation, I am emailing the results of the tests done here in [place] as related to my back pain. Please let me know if I should have any further information sent or faxed directly to you from the hospital. Pain is still there, but doesn't seem to get any better or worse and does not in any way interfere with my daily activities. Thank you, Jia Dow Reports also scanned into chart documented in this encounter Plan of Treatment Upcoming Encounters Date Type Specialty Care Team Description 12/16/2021 Appointment Infusion Therapy 04/15/2022 Office Visit Hematology and Oncology Poppy Felton, SHAHAB [address] [phone] (Wo rk) 05/30/2022 Office Visit Surgical Oncology Asa Cameron MD 111 [facility], [facility] 2 [place] [phone] (Wo rk) documented as of this encounter Visit Diagnoses Not on filedocumented in this encounter Care Teams District Operations Manager Relationship Specialty Start Date End Date Evert Perdomo MD PCP - General 10/13/08 05/13/16 [address] [place] [phone] documented as of this encounter
--- OUTSIDE RECORDS SUMMARY | 2021-11-29 00:30 | XMS_ITS | Encounter Summary ---
:[address] [facility] Address [address] [place] [address] Care Team Providers Name Role Phone Evert Perdomo MD Primary Care Provider Reason for Visit Reason Onset Date Comments Labs Only 06/30/2012 Encounter Details Date Type Department Care Team Description 06/30/2012 Telephone [facility] Hollis Mock RN Labs Only Hematology & Oncology - [address] [place] [address] [address] [place] [address] Social History Tobacco Use Types Packs/Day Years [...] Telephone Encounter - Jenn Mock RN - 06/30/2012 1506 EDT A prior authorization was performed for CYP2D6 genetic testing (see letters dated 06/18/12). Ms. Dow will clarify with her patient insurance clerk whether or not her cost will be applied to her deductible. If so, she may then proceed with the test, but will call this office to confirm. documented in this encounter Plan of Treatment Upcoming Encounters Date Type Specialty Care Team Description 12/16/2021 Appointment Infusion Therapy 04/15/2022 Office Visit Hematology and Oncology Poppy Felton, PAChuyC [address] [phone] (Wo rk) 05/30/2022 Office Visit Surgical Oncology Asa Cameron MD [address] [phone] (Wo rk) documented as of this encounter Visit Diagnoses Not on filedocumented in this encounter Care Teams Second Language Tutor Relationship Specialty Start Date End Date Evert Perdomo MD PCP - General 10/13/08 05/13/[address] [phone] documented as of this encounter
--- OUTSIDE RECORDS SUMMARY | 2021-11-29 00:30 | XMS_ITS | Encounter Summary ---
:1970 Author Organization [facility] Address [address] [place] [address] Care Team Providers Name Role Phone Evert Perdomo MD Primary Care Provider Reason for Visit Reason Comments Other Encounter Details Date Type Department Care Team Description 01/29/2014 Refill [facility] Adult Evert Perdomo MD Other Primary Care - [phone] [place] [phone] (Wo rk) Social History Tobacco Use Types [...] TAKE 1 TABLET AT 90 Tab 0 201303/30/2014 mg tablet BEDTIME documented in this encounter Plan of Treatment Upcoming Encounters Date Type Specialty Care Team Description 12/16/2021 Appointment Infusion Therapy 04/15/2022 Office Visit Hematology and Oncology Poppy Felton PA-C 111 [facility] 2 [place], [place] [phone] (Wo rk) 05/30/2022 Office Visit Surgical Oncology Asa Cameron MD 111 [facility] 2 [place] [phone] (Wo rk) documented as of this encounter Visit Diagnoses Not on filedocumented in this encounter Discontinued Medications Medication Sig Discontinue Reason Start Date End Date traZODone (DESYREL) 100 Take 1 Tab by mouth 01/28/2013 01/30/2014 mg tablet at bedtime. traZODone (DESYREL) 100 Take 1 Tab by mouth Reorder 01/28/2013 01/29/2014 mg tablet at bedtime. documented as of this encounter Care Teams Photo Specialist Relationship Specialty Start Date End Date Evert Perdomo MD PCP - General 10/13/08 05/13/[address] [address] documented as of this encounter
--- OUTSIDE RECORDS SUMMARY | 2021-11-29 00:31 | XMS_ITS | Encounter Summary ---
:1970 Author Organization [facility] Address [address] [place] [address] Care Team Providers Name Role Phone Evert Perdomo MD Primary Care Provider Encounter Details Date Type Department Care Team Description 10/14/2011 Documentation Visit [facility] Agusto Martin ra Hematology & Oncology - [address] [address] Social History Tobacco Use Types [...] documented as of this encounter Progress Notes Sharmila Martin - 10/14/2011 1618 EDT Child life services continue to be available to the [age] year old daughter of Marita Ro. Marita isworking on a writing project with this [employer] Utility Worker to help her to express her feelings andidentify coping strategies related to her mother's cancer. Child Life services will continue to be av ailable, as needed. -Jami Martin CCLS Pager # [phone] documented in this encounter Plan of Treatment Upcoming Encounters Date Type Specialty Care Team Description 12/16/2021 Appointment Infusion Therapy 04/15/2022 Office Visit Hematology and Oncology Poppy Felton, PAChuyC 111 [facility] 2 [place], [place] [phone] (Wo rk) 05/30/2022 Office Visit Surgical Oncology Asa Cameron MD 111 [facility], [facility] 2 [place], [place] [phone] (Wo rk) documented as of this encounter Visit Diagnoses Not on filedocumented in this encounter Care Teams Airline Counter Agent Relationship Specialty Start Date End Date Evert Perdomo MD PCP - General 10/13/08 05/13/[address] [phone] documented as of this encounter
--- OUTSIDE RECORDS SUMMARY | 2021-11-29 00:31 | XMS_ITS | Encounter Summary ---
:1970 Author Organization [facility] Address [address] [place] [address] Care Team Providers Name Role Phone Evert Perdomo MD Primary Care Provider Reason for Visit Reason Comments Mood Disorder ADHD Breast Cancer Encounter Details Date Type Department Care Team Description 09/25/2011 Office Visit [facility] Nito Xiao, Uns pecified episodic mood disorder; Psychiatry - S ADHD (attention deficit hyperactivity di sorder); [place] 1 [facility] Breast cancer ([facility]-HCC) 1 [place] [address] [place] [address] Social History Tobacco Use Types Packs/Day Years [...] Refills Start Date End Date zolpidem (AMBIEN) 10 mg Take 1 Tab by mouth 30 Tab 1 03/201111/18/2011 tablet at bedtime as needed for Sleep. Take one half to one tab at bedtime as needed for sleep. documented in this encounter Miscellaneous Notes Scanned Note-Null - DATABASE MODELER, SCAN 2 - 09/26/2011 0949 EDT documented in this encounter Plan of Treatment Upcoming Encounters Date Type Specialty Care Team Description 12/16/2021 Appointment Infusion Therapy 04/15/2022 Office Visit Hematology and Oncology Poppy Felton PA-C 111 [facility] 2 [place], [place] [phone] (Wo rk) 05/30/2022 Office Visit Surgical Oncology Asa Cameron MD 111 [facility] 2 [place], [place] [phone] (Wo rk) documented as of this encounter Visit Diagnoses Diagnosis Unspecified episodic mood disorder ADHD (attention deficit hyperactivity di sorder) Attention deficit disorder with hyperact ivity Breast cancer ([facility]) (HCC) Malignant neoplasm of breast (female), u nspecified site documented in this encounter Discontinued Medications Medication Sig Discontinue Reason Start Date End Date DIAZepam (VALIUM) 5 mg Take 1 Tab by mouth Duplicate Therapy 201109/25/2011 tablet 2 times daily. documented as of this encounter Historical Medications This list may reflect changes made after this encounter. Medication Sig Dispensed Refills Start Date End Date fluticasone (FLONASE) 50 50 mcg by Nasal 0 02/22/2014 mcg/actuation nasal spray route 2 times daily as needed. added in this encounter Care Teams Date Night Sitter Relationship Specialty Start Date End Date Evert Perdomo MD PCP - General 10/13/08 05/13/[address] [place] [phone] documented as of this encounter
--- OUTSIDE RECORDS SUMMARY | 2021-11-29 00:31 | XMS_ITS | Encounter Summary ---
:1970 Author Organization [facility] Address [address] [place] [address] Care Team Providers Name Role Phone Evert Perdomo MD Primary Care Provider Reason for Visit Reason Onset Date Comments Results 09/08/2011 Encounter Details Date Type Department Care Team Description 09/08/2011 Telephone [facility] Jessi Pleitez MD PhD Results Hematology & Oncology - [address] [place] [address], [address] Level 2 [place], [place] [phone] [place] [phone] (Wo rk) Social History Tobacco Use [...] Telephone Encounter - Jenn Mock RN - 09/09/2011 1159 EDT Ms. Dow has been reassured that the Oncotype results have not as yet arrived. She understands that she will be called as soon as results are available. elephone Encounter - Magalys Ventura - 09/08/2011 1439 EDT While making appt reminder call, patient asked for her results from [employer] documented in this encounter Plan of Treatment Upcoming Encounters Date Type Specialty Care Team Description 12/16/2021 Appointment Infusion Therapy 04/15/2022 Office Visit Hematology and Oncology Poppy Felton, PAChuyC 111 [facility] 2 [place], [place] [phone] (Wo rk) 05/30/2022 Office Visit Surgical Oncology Asa Cameron MD 111 [facility] 2 [place], [place] [phone] (Wo rk) documented as of this encounter Visit Diagnoses Not on filedocumented in this encounter Care Teams Traffic Survey Technician Relationship Specialty Start Date End Date Evert Perdomo MD PCP - General 10/13/08 05/13/[address] [address] documented as of this encounter
--- OUTSIDE RECORDS SUMMARY | 2021-11-29 00:31 | XMS_ITS | Encounter Summary ---
:1970 Author Organization [facility] Address [address] [place] [address] Care Team Providers Name Role Phone Evert Perdomo MD Primary Care Provider Reason for Visit Reason Comments Post-OP Follow Up dos 08/14/11 Encounter Details Date Type Department Care Team Description 09/22/2011 Office Visit [facility] Roman Chino Follow- up Plastic, Reconstructive Cindy Norwood FACS examination, & Cosmetic Surgery - 130 [facility] following unspecified [place], [place] surgery (Primary Dx) 354 [facility], [address] [place] [address] [address] [place] [address] (Work) [phone] Social History Tobacco Use Types Packs/Day Years [...] as of this encounter Patient Instructions Patient InstructionsEmerita Beauchamp RN - 09/22/2011 15:57 EDT Wear bandaid for next 24 hours. Ok to shower Thursday. documented in this encounter Discharge Disposition Disposition Code Departure Means Destination Auto Discharge documented in this encounter Progress Notes Roman Chino MD - 04/17/2012 1727 EST Jia is here for fill of her bilateral tissue expanders. After verbal informed consent was obtained the port was located magnetically and marked. A three step Betadine Alcohol prep was used. Using standard sterile technique and a closed system the port was accessed and the cash clerk filled with 50cc of injectable saline bilaterally. The patient tolerated the procedure well. Access sites were dressedwith spot bandaids to be removed tomorrow. Totals were recorded on the flow sheet. She now has fillsof 150cc's bilaterally. Signs and symptoms of infection were discussed. She will follow up in 2-3 weeks. documented in this encounter Plan of Treatment Upcoming Encounters Date Type Specialty Care Team Description 12/16/2021 Appointment Infusion Therapy 04/15/2022 Office Visit Hematology and Oncology Poppy Felton PA-C [address] [phone] (Larissa felder) 05/30/2022 Office Visit Surgical Oncology Asa Cameron MD [address] [phone] (Wo rk) documented as of this encounter Visit Diagnoses Diagnosis Follow-up examination, following unspeci fied surgery - Primary documented in this encounter Discontinued Medications Medication Sig Discontinue Reason Start Date End Date buPROPion (WELLBUTRIN XL) Take 1 Tab by mouth 07/25/19 12 09/22/2011 300 mg XL tablet daily. senna (SENOKOT) 8.6 mg Take 1 Tab by mouth 08/16/2011 09/22/2011 tablet daily as needed. documented as of this encounter Historical Medications This list may reflect changes made after this encounter. Medication Sig Dispensed Refills Start Date End Date tamoxifen (NOLVADEX) 20 Take 20 mg by mouth 0 11/18/2011 mg tablet daily. added in this encounter Care Teams Spanish Interpreter/Translator Relationship Specialty Start Date End Date Evert Perdomo MD PCP - General 10/13/08 05/13/[address] [place] [address] documented as of this encounter
--- OUTSIDE RECORDS SUMMARY | 2021-11-29 00:31 | XMS_ITS | Encounter Summary ---
:1970 Author Organization [facility] Address [address] [place] [address] Care Team Providers Name Role Phone Evert Perdomo MD Primary Care Provider Reason for Visit Reason Comments Post-OP Follow Up Encounter Details Date Type Department Care Team Description 08/25/2011 Office Visit [facility] Asa Cameron MD Breast cancer Surgical Oncology - [address] [place] [address] ([facility]) (Primary [facility] [address] Dx) [address] [place] [address] [facility] [place] [address] (Wo rk) Social History Tobacco [...] Pressure - - Pulse - - Temperature 37.6 ??C (99.6 ??F) 08/25/2011 1649 EDT Respiratory Rate 16 08/25/2011 1649 EDT Oxygen Saturation - - Inhaled Oxygen Concentration - - Weight - - Height - - Body Mass Index - - documented in this encounter Functional Status Cognitive Status Response Date of Assessment Because of a physical, mental, or emotional condition, do Ye s 08/15/2011 you have serious difficulty concentrating, remembering, or making decisions? (5 years old or older) documented as of this encounter Progress Notes Asa Cameron MD - 08/28/2011 1034 EDT DIVISION OF SURGICAL ONCOLOGY - BRE[facility] PROGRESS/FOLLOWUP NOTE - 08/25/2011 SUBJECTIVE: The patient is seen in postop followup after bilateral mastectomies and right axillary sentinel node biopsy. The patient is doing relatively well. She has some tightness in the surgical areas, but otherwise has minimal pain or discomfort. OBJECTIVE: On examination, her incisions are healed nicely. Her drains have been removed last week. There are no fluid collections that are noted. DIAGNOSTIC DATA: Ultrasound demonstrates no significant fluid collections under either mastectomy site. ASSESSMENT: Final pathology was reviewed with the patient. She had a 1.2 cm invasive ductal cancer in the right breast, which was well-differentiated. We had clear margins for both invasive and the in situ component. There was no lymphovascular invasion noted. Four sentinel nodes were negative for tumor. Tumor stage is therefore T1cN0. It was ER/FL strongly positive, HER-2/jason was 2+, FISH analysis is being done on that. The patient has had a chance to meet already with Dr Jessi Pleitez and awaiting results of the FISH analysis as well as Onco-type testing to make a decision as to the appropriate systemic therapies. PLAN: At this point, the patient was given instructions for arm range of motion exercises, which I would like to have her wait another week before starting. She is scheduled to be followed by Dr Hernandes in about 5 weeks for her implants. As far as I am concerned, the patient as long as she is doing well, will be able to have routine followup in 6 months. Electronically Signed by Asa Cameron MD 08/29/2011 10:47 Asa Cameron MD - Asa Cameron MD - BB Job ID: SM Doc ID: [id number] Ext Doc ID: [id number] cc: MD Evert Ames MD Robert D Nesbit, MD Asa sheppard MD - 08/26/2011 0759 EDT This office note has been dictated. documented in this encounter Plan of Treatment Upcoming Encounters Date Type Specialty Care Team Description 12/16/2021 Appointment Infusion Therapy 04/15/2022 Office Visit Hematology and Oncology Poppy Felton PA-C 111 [facility] 2 [place] [phone] (Wo rk) 05/30/2022 Office Visit Surgical Oncology Asa Cameron MD 111 [facility] 2 [place] [phone] (Wo rk) documented as of this encounter Visit Diagnoses Diagnosis Breast cancer (HCC-CMS) (HCC) - Primary Malignant neoplasm of breast (female), u nspecified site documented in this encounter Care Teams Appliance Assembler Relationship Specialty Start Date End Date Evert Perdomo MD PCP - General 10/13/08 05/13/[address] [address] documented as of this encounter
--- OUTSIDE RECORDS SUMMARY | 2021-11-29 00:31 | XMS_ITS | Encounter Summary ---
:1970 Author Organization [facility] Address [address] [place] [address] Care Team Providers Name Role Phone Evert Perdomo MD Primary Care Provider Reason for Visit Reason Onset Date Comments Appointment Related 09/30/2011 Encounter Details Date Type Department Care Team Description 09/30/2011 Telephone [facility] Jessi Pleitez MD Appo intment Related Oncology Rehabilitation PhD - [address] [phone] [facility] 2 [place] [address] (Wo rk) Social History Tobacco [...] this encounter Miscellaneous Notes Telephone Encounter - Margariat Rizzo - 09/30/2011 1128 EDT [facility] [address] [facility] [address] Telephone Intake Information for Scheduling NEW Patients for Therapy Script/referral (present in [facility]) Referring Provider: Jessi Pleitez MD Diagnosis: Deconditioning after surgery - breast cancer Primary Insurance: [employer] Notes/other: The patient is scheduled for Steps to Wellness Program evaluations at the [facility] location on 10/02/11. Packet was not mailed to patient, as appointment was just scheduled. Margarita Rizzo 09/30/2011 documented in this encounter Plan of Treatment Upcoming Encounters Date Type Specialty Care Team Description 12/16/2021 Appointment Infusion Therapy 04/15/2022 Office Visit Hematology and Oncology Poppy Felton, PAChuyC 111 [facility] 2 [place], [place] [phone] (Wo rk) 05/30/2022 Office Visit Surgical Oncology Asa Cameron MD 111 [facility] 2 [place] [phone] (Wo rk) documented as of this encounter Visit Diagnoses Not on filedocumented in this encounter Care Teams Legal Process Specialist Relationship Specialty Start Date End Date Evert Perdomo MD PCP - General 10/13/08 05/13/[address] [address] documented as of this encounter
--- OUTSIDE RECORDS SUMMARY | 2021-11-29 00:31 | XMS_ITS | Encounter Summary ---
:1970 Author Organization [facility] Address [address] [place] [address] Care Team Providers Name Role Phone Evert Perdomo MD Primary Care Provider Reason for Visit Reason Onset Date Comments Follow-up 09/01/2011 Encounter Details Date Type Department Care Team Description 09/01/2011 Telephone [facility] Jessi Pleitez MD PhD Follow-up Hematology & Oncology - [address] [place] [address], [address] 2 [place], [place] [address] [place] [phone] (Wo rk) Social History Tobacco Use [...] Telephone Encounter - Jenn Mock RN - 09/01/[address] Pleitez has contacted the patient as requested. elephone Encounter - Jumana Orourke - 09/01/2011 1206 EDT Patient would like to discuss the report from [facility]. Patient is concerned because she did not authorized the slides to be sent. She would like to know results of the FISH. Patient wantsto speak with Dr. Pleitez. documented in this encounter Plan of Treatment Upcoming Encounters Date Type Specialty Care Team Description 12/16/2021 Appointment Infusion Therapy 04/15/2022 Office Visit Hematology and Oncology Poppy Felton, PAChuyC [address] [place], [facility] 2 [place], [place] [phone] (Wo rk) 05/30/2022 Office Visit Surgical Oncology Asa Cameron MD [address] [place], [facility] 2 [place] [phone] (Wo rk) documented as of this encounter Visit Diagnoses Not on filedocumented in this encounter Care Teams Tool Design Draftsperson Relationship Specialty Start Date End Date Evert Perdomo MD PCP - General 10/13/08 05/13/[address] [address] documented as of this encounter
--- OUTSIDE RECORDS SUMMARY | 2021-11-29 00:31 | XMS_ITS | Encounter Summary ---
:1970 Author Organization [facility] Address [address] [place] [address] Care Team Providers Name Role Phone Evert Perdomo MD Primary Care Provider Encounter Details Date Type Department Care Team Description 10/22/2011 Hospital Encounter [facility] - Samantha Lee Nakina [address] [address] [address] [place] [phone] (Wo rk) Social History Tobacco Use Types [...] Sig Dispensed Refills Start Date End Date DIAZepam (VALIUM) 5 mg Take 1 Tab by 30 Tab 0 08/20/2011 11/18/2011 tablet mouth every 6 hours as needed for Anxiety. FEXOFENADINE HCL (MART Take by mouth as 0 09/19/2014 ORAL) needed. fluticasone (FLONASE) 50 50 mcg by Nasal 0 02/22/2014 mcg/actuation nasal spray route 2 times daily as needed. lisdexamfetamine (VYVANSE) Take 1 Cap by 28 Cap 0 201110/28/2011 30 mg capsule mouth daily for 28 days. tamoxifen (NOLVADEX) 20 mg Take 20 mg by 0 11/18/2011 tablet mouth daily. trazodone (DESYREL) 50 mg Take 1.5 Tabs by 135 Tab 1 02/2411/11/2011 tablet mouth at bedtime. [id number] by mouth. zolpidem (AMBIEN) 10 mg Take 1 Tab by 30 Tab 1 2 11/18/2011 tablet mouth at bedtime as needed for Sleep. Take one half to one tab at bedtime as needed for sleep. documented as of this encounter Discharge Disposition Disposition Code Departure Means Destination Home or Self Care documented in this encounter Plan of Treatment Upcoming Encounters Date Type Specialty Care Team Description 12/16/2021 Appointment Infusion Therapy 04/15/2022 Office Visit Hematology and Oncology Poppy Felton PA-C [address] [phone] (Wo rk) 05/30/2022 Office Visit Surgical Oncology Asa Cameron MD [address] [phone] (Wo rk) documented as of this encounter Visit Diagnoses Not on filedocumented in this encounter Care Teams Coastal And Estuary Specialist Relationship Specialty Start Date End Date Evert Perdomo MD PCP - General 10/13/08 05/13/[address] [address] documented as of this encounter
--- OUTSIDE RECORDS SUMMARY | 2021-11-29 00:31 | XMS_ITS | Encounter Summary ---
:1970 Author Organization [facility] Address [address] [place] [address] Care Team Providers Name Role Phone Evert Perdomo MD Primary Care Provider Encounter Details Date Type Department Care Team Description 08/17/2011 Hospital Encounter [facility] Boaz Avitia MD PhD Radiation Oncology - [address] [place] [address], [address] [place], [place] [address] [place] [address] [phone] (Wo rk) Social History Tobacco Use [...] Sig Dispensed Refills Start Date End Date acetaminophen (TYLENOL) 500 Take 2 Tabs by 1 Tab 0 07/2509/10/2011 mg tablet mouth every 6 hours. buPROPion (WELLBUTRIN XL) Take 1 Tab by 90 Tab 3 012 09/22/2011 300 mg XL tablet mouth daily. cephALEXin (KEFLEX) 500 mg Take 1 Cap by 42 Cap 0 201109/06/2011 capsule mouth every 12 hours for 21 days. DIAZepam (VALIUM) 5 mg Take 1 Tab by 20 Tab 0 08/16/2011 09/25/2011 tablet mouth 2 times daily. FEXOFENADINE HCL (MART Take by mouth as 0 09/19/2014 ORAL) needed. lisdexamfetamine (VYVANSE) Take 1 Cap by 28 Cap 0 201109/29/2011 30 mg capsule mouth daily. methylphenidate (CONCERTA) Take 27 mg by 0 09/10/2011 27 mg CR tablet mouth daily. [place]-3 Fatty Acids-Vitamin Take by mouth. 0 09/10/2011 E (FISH OIL) 1,000 mg Cap oxycodone (ROXICODONE) 5 mg Take 1-3 Tabs by 60 Tab 0 09/10/2011 immediate release tablet mouth every 3 hours as needed for Pain. senna (SENOKOT) 8.6 mg Take 1 Tab by 0 08/16/2011 09/22/2011 tablet mouth daily as needed. trazodone (DESYREL) 50 mg Take 1.5 Tabs by 135 Tab 1 02/2411/11/2011 tablet mouth at bedtime. [id number] by mouth. documented as of this encounter Discharge Disposition Disposition Code Departure Means Destination Home or Self Jail documented in this encounter Plan of Treatment Upcoming Encounters Date Type Specialty Care Team Description 12/16/2021 Appointment Infusion Therapy 04/15/2022 Office Visit Hematology and Oncology Poppy Felton PA-C 111 [facility], [facility] 2 [place], [place] [phone] (Wo rk) 05/30/2022 Office Visit Surgical Oncology Asa Cameron MD 111 [place] [facility], [facility] 2 [place], [place] [phone] (Wo rk) documented as of this encounter Visit Diagnoses Not on filedocumented in this encounter Care Teams Implementation Engineer Relationship Specialty Start Date End Date Evert Perdomo MD PCP - General 10/13/08 05/13/[address] [address] documented as of this encounter
--- OUTSIDE RECORDS SUMMARY | 2021-11-29 00:31 | XMS_ITS | Encounter Summary ---
:1970 Author Organization [facility] Address [address] [place] [address] Care Team Providers Name Role Phone Evert Perdomo MD Primary Care Provider Encounter Details Date Type Department Care Team Description 08/22/2011 Hospital Encounter [facility] - Yasmeen Palacios MD [address] 1 [place] [address] Pavilion, [place] [address] (Wo rk) Social History Tobacco Use Types [...] every 6 hours as needed for Anxiety. DIAZepam (VALIUM) 5 mg Take 1 Tab by 20 Tab 0 08/16/2011 09/25/2011 tablet mouth 2 times daily. FEXOFENADINE HCL (MART Take by mouth as 0 09/19/2014 ORAL) needed. lisdexamfetamine (VYVANSE) Take 1 Cap by 28 Cap 0 201109/29/2011 30 mg capsule mouth daily. methylphenidate (CONCERTA) Take 27 mg by 0 09/10/2011 27 mg CR tablet mouth daily. [place]-3 Fatty Acids-Vitamin Take by mouth. 0 09/10/2011 E (FISH OIL) 1,000 mg Cap oxycodone (ROXICODONE) 5 mg Take 1-3 Tabs by 60 Tab 0 09/10/2011 immediate release tablet mouth every 3 hours as needed for Pain. promethazine (PHENERGAN) 25 Take 0.5 Tabs by 10 Tab 0 09/10/2011 mg tablet mouth every 6 hours as needed for Nausea. senna (SENOKOT) 8.6 mg Take 1 Tab by 0 08/16/2011 09/22/2011 tablet mouth daily as needed. tramadol (ULTRAM) 50 mg Take 1 Tab by 30 Tab 0 2 09/10/2011 tablet mouth every 6 hours as needed for Pain. trazodone (DESYREL) 50 mg Take 1.5 Tabs by 135 Tab 1 02/2411/11/2011 tablet mouth at bedtime. [id number] by mouth. documented as of this encounter Discharge Disposition Disposition Code Departure Means Destination Home or Self Care documented in this encounter Plan of Treatment Upcoming Encounters Date Type Specialty Care Team Description 12/16/2021 Appointment Infusion Therapy 04/15/2022 Office Visit Hematology and Oncology Poppy Felton PA-C [address] [phone] (Wo rk) 05/30/2022 Office Visit Surgical Oncology Asa Cameron MD [address] [phone] (Wo rk) documented as of this encounter Visit Diagnoses Not on filedocumented in this encounter Care Teams Rn Clinician Relationship Specialty Start Date End Date Evert Perdomo MD PCP - General 10/13/08 05/13/[address] [address] documented as of this encounter
--- OUTSIDE RECORDS SUMMARY | 2021-11-29 00:31 | XMS_ITS | Encounter Summary ---
:1970 Author Organization [facility] Address [address] [place] [address] Care Team Providers Name Role Phone Evert Perdomo MD Primary Care Provider Encounter Details Date Type Department Care Team Description 08/22/2011 Phlebotomy Only [facility] - Sustainable Landscape Architect, [facility] Outpatient [address] [place] [address] Social History Tobacco Use Types Packs/Day Years [...] Visit Hematology and Oncology Poppy Felton, PAChuyC [address] [place] [phone] (Wo rk) 05/30/2022 Office Visit Surgical Oncology Asa Cameron MD [address] [phone] (Wo rk) documented as of this encounter Visit Diagnoses Not on filedocumented in this encounter Care Teams Manager Gallery Relationship Specialty Start Date End Date Evert Perdomo MD PCP - General 10/13/08 05/13/[address] [address] documented as of this encounter
--- OUTSIDE RECORDS SUMMARY | 2021-11-29 00:31 | XMS_ITS | Encounter Summary ---
:1970 Author Organization [facility] Address [address] [place] [address] Care Team Providers Name Role Phone Evert Perdomo MD Primary Care Provider Reason for Visit Reason Onset Date Comments Letter for School/Work 08/25/2011 [facility] Lynn harper opped off Follow-up 08/25/2011 Encounter Details Date Type Department Care Team Description 08/25/2011 Telephone [facility] Asa Cameron MD Letter for School/Work Surgical Oncology - 111 [facility] ([facility] dropped off); 111 [facility] [place], Level 2 Follow-up [place], [place] [address] [place] [phone] (Wo rk) Social History Tobacco Use Types [...] this encounter Miscellaneous Notes Telephone Encounter - Shea Mares - 08/25/2011 1103 EDT Joceline, mom of Jia Dow, would like to know if the FLMA paperwork has been filled out yet. Per Joceline, she dropped off at the front desk clerk last week. Joceline requesting a call back today. documented in this encounter Plan of Treatment Upcoming Encounters Date Type Specialty Care Team Description 12/16/2021 Appointment Infusion Therapy 04/15/2022 Office Visit Hematology and Oncology Poppy Felton, SHAHAB 111 [facility] 2 [place], [place] [phone] (Wo rk) 05/30/2022 Office Visit Surgical Oncology Asa Cameron MD 111 [facility] 2 [place], [place] [phone] (Wo rk) documented as of this encounter Visit Diagnoses Not on filedocumented in this encounter Care Teams Installment Loan Collector Relationship Specialty Start Date End Date Evert Perdomo MD PCP - General 10/13/08 05/13/[address] [phone] documented as of this encounter
--- OUTSIDE RECORDS SUMMARY | 2021-11-29 00:31 | XMS_ITS | Encounter Summary ---
:1970 Author Organization [facility] Address [address] [place] [address] Care Team Providers Name Role Phone Evert Perdomo MD Primary Care Provider Reason for Visit Reason Onset Date Comments Other 09/01/2011 Encounter Details Date Type Department Care Team Description 09/01/2011 Telephone [facility] Plastic, [place], Other Reconstructive & Cosmetic MD [facility] Surgery [address], [facility] [place] [address] [facility] [place] [address] [phone] Social History Tobacco Use Types Packs/Day Years [...] this encounter Miscellaneous Notes Telephone Encounter - Emerita Beauchamp RN - 09/01/2011 1737 EDT We discussed Coobie bras. No running. Hold for another week [facility] arm exercises Ibuprofen has helped a lot.. elephone Encounter - Estela Pryor - 09/01/2011 1348 EDT PT has questions about her reconstruction tissue expanders...... Bra's, exercise etc documented in this encounter Plan of Treatment Upcoming Encounters Date Type Specialty Care Team Description 12/16/2021 Appointment Infusion Therapy 04/15/2022 Office Visit Hematology and Oncology Poppy Felton, PAChuyC 111 [facility] 2 [place], [place] [phone] (Wo rk) 05/30/2022 Office Visit Surgical Oncology Asa Cameron MD 111 [facility], [facility] 2 [place], [place] [phone] (Wo rk) documented as of this encounter Visit Diagnoses Not on filedocumented in this encounter Care Teams Pricing Strategist Relationship Specialty Start Date End Date Evert Perdomo MD PCP - General 10/13/08 05/13/[address] [phone] documented as of this encounter
--- OUTSIDE RECORDS SUMMARY | 2021-11-29 00:31 | XMS_ITS | Encounter Summary ---
:1970 Author Organization [facility] Address [address] [place] [address] Care Team Providers Name Role Phone Evert Perdomo MD Primary Care Provider Reason for Visit Reason Onset Date Comments Paperwork request 08/25/2011 Encounter Details Date Type Department Care Team Description 08/25/[address] [facility] Asa Cameron MD Paperwork request Surgical Oncology - [address] [place] [address], [address], [address] [place], [place] [address] [place] [address] [phone] (Wo rk) Social History Tobacco Use [...] this encounter Miscellaneous Notes Telephone Encounter - Audeila Martínez - 08/25/2011 1424 EDT Patient's mom (Joceline) returned call to say it is ok to fax filled out paperwork. The last page of the forms should have the fax number on it. ) case #[id number]. Please fax as soon as possible. documented in this encounter Plan of Treatment Upcoming Encounters Date Type Specialty Care Team Description 12/16/2021 Appointment Infusion Therapy 04/15/2022 Office Visit Hematology and Oncology Poppy Felton PA-C [address] [phone] (Wo rk) 05/30/2022 Office Visit Surgical Oncology Asa Cameron MD [address] [phone] (Wo rk) documented as of this encounter Visit Diagnoses Not on filedocumented in this encounter Care Teams Oncologist Relationship Specialty Start Date End Date Evert Perdomo MD PCP - General 10/13/08 05/13/[address] [phone] documented as of this encounter
--- OUTSIDE RECORDS SUMMARY | 2021-11-29 00:31 | XMS_ITS | Encounter Summary ---
:1970 Author Organization [facility] Address [address] [place] [address] Care Team Providers Name Role Phone Evert Perdomo MD Primary Care Provider Encounter Details Date Type Department Care Team Description 08/22/2011 Results Only [facility] Asa Cameron MD Imaging Surgical Oncology - [address] [place] [address], [address], [address] 2 [place], [place] [phone] [place] [phone] (Wo rk) Social History Tobacco Use Types [...] Hematology and Oncology Poppy Felton PA-C [address] [phone] (Wo rk) 05/30/2022 Office Visit Surgical Oncology Asa Cameron MD [address] [phone] (Wo rk) documented as of this encounter Visit Diagnoses Not on filedocumented in this encounter Care Teams Beekeeper Farmer Relationship Specialty Start Date End Date Evert Perdomo MD PCP - General 10/13/08 05/13/[address] [address] documented as of this encounter
--- OUTSIDE RECORDS SUMMARY | 2021-11-29 00:31 | XMS_ITS | Encounter Summary ---
:1970 Author Organization [facility] Address [address] [place] [address] Care Team Providers Name Role Phone Evert Perdomo MD Primary Care Provider Reason for Visit Reason Onset Date Comments Appointment Related 10/16/2011 Encounter Details Date Type Department Care Team Description 10/16/2011 Telephone [facility] Jessi Pleitez MD Appo intment Related Oncology Rehabilitation PhD - [address] [phone] [facility] 2 [place] [phone] (Wo rk) Social History Tobacco [...] encounter Miscellaneous Notes Telephone Encounter - Margarita Rizzo - 10/16/2011 1439 EDT Ambulatory Consult for Physical Therapy received today. This referral has been [facility] for ROM and lymphedema education. documented in this encounter Plan of Treatment Upcoming Encounters Date Type Specialty Care Team Description 12/16/2021 Appointment Infusion Therapy 04/15/2022 Office Visit Hematology and Oncology Poppy Felton PA-C [address] [phone] (Wo rk) 05/30/2022 Office Visit Surgical Oncology Asa Cameron MD [address] [phone] (Wo rk) documented as of this encounter Visit Diagnoses Not on filedocumented in this encounter Care Teams Review Trainer Relationship Specialty Start Date End Date Evert Perdomo MD PCP - General 10/13/08 05/13/[address] [address] documented as of this encounter
--- OUTSIDE RECORDS SUMMARY | 2021-11-29 00:31 | XMS_ITS | Encounter Summary ---
:[address] [facility] Address [address] [place] [address] Care Team Providers Name Role Phone Evert Perdomo MD Primary Care Provider Reason for Referral Consult, Test and Treat (Routine/Next Available) - Closed Specialty Diagnoses / Procedures Referred By Contact Refer red To Contact Rehab Therapies Diagnoses Breast cancer ([facility]) ([facility]) Jessi Pleitez MD PhD [facility] [address] [place] [address] [address], [address] 2 [place], [place] Fax: [phone] Referral ID Status Reason Start Date Expiration Date Visits V isits Requested Authorized [id number] Closed Specialty 09/24/2011 1 1 Services Required Question Answer Reason for Request: Deconditioning after surgery Comments Refer to [facility]; To see Alejandra Coronado Reason for Visit Reason Comments Follow-up Encounter Details Date Type Department Care Team Description 09/24/2011 Office Visit [facility] Jessi Pleitez MD Breas t cancer Hematology & PhD ([facility]) (Primary Oncology - [address] [place] [address] [address], [place] [phone] (Wo rk) Social History Tobacco Use Types [...] Sign Reading Time Taken Comments Blood Pressure 120/78 09/24/2011 1603 EDT Pulse 81 09/24/2011 1603 EDT Temperature 36.9 ??C (98.5 ??F) 09/24/2011 1603 EDT Respiratory Rate 16 09/24/2011 1603 EDT Oxygen Saturation - - Inhaled Oxygen Concentration - - Weight 59.9 kg (132 lb) 09/24/2011 1603 EDT Height - - Body Mass Index 21.31 08/11/2011 1544 EDT documented in this encounter Functional Status Cognitive Status Response Date of Assessment Because of a physical, mental, or emotional condition, do Ye s 08/15/2011 you have serious difficulty concentrating, remembering, or making decisions? (5 years old or older) documented as of this encounter Discharge Disposition Disposition Code Departure Means Destination Auto Discharge documented in this encounter Progress Notes Jessi Pleitez MD - 09/24/2011 1633 EDT REASON FOR OFFICE VISIT: Discussion of medical oncology management in a patient with an ER+, node negative, invasive ductal carcinoma. PROBLEM LIST: 1. Invasive adenocarcinoma of the right breast identified based palpable mass in June 2011. a. total mastectomy and prophylactic mastectomy performed 08/14/2011 with pathology revealing a 1.2 cm invasive ductal carcinoma of the right breast, well-differentiated, lymphovascular invasion identified on the core biopsy and by [facility] there was an area on the mastectomy specimen. 0/4 lymph nodes; ER+>90%, RI+ > 90%; HER-2 2+ by immunohistochemistry and negative by FISH. Oncotype DX score 20 (intermediate range). B. Initiated tamoxifen 08/2011 2. Family history of breast cancer, genetic testing is pending. 3. Other chronic health problems include ADHD and anxiety. SUBJECTIVE: Ms Dow presents to the clinic to discuss consultation with [facility] and initiaition of tamoxifen. She met with Dr Schuster at [facility]. He was comfortable eliminating chemotherapy. Elyssa started tamoxifen the next day as she wanted to identify her side effects before her family left for [place]. She has not noted any side effects with the tamoxifen. She stopped Wellbutrin and had not noticed and change in depressive symptoms. She also stopped trazadone and has noted more insomnia. She will see her psychologist tomorrow to identify other options. ROS: A 10 point review of systems was obtained. Other than described in the subjective she notes insomnia. Medications Prior to Today's Visit Medication Sig ??? tamoxifen (NOLVADEX) 20 mg tablet Take 20 mg by mouth daily. ??? DIAZepam (VALIUM) 5 mg tablet Take 1 Tab by mouth every 6 hours as needed for Anxiety. ??? DIAZepam (VALIUM) 5 mg tablet Take 1 Tab by mouth 2 times daily. ??? FEXOFENADINE HCL (MART ORAL) Take by mouth as needed. ??? lisdexamfetamine (VYVANSE) 30 mg capsule Take 1 Cap by mouth daily. ??? trazodone (DESYREL) 50 mg tablet Take 1.5 Tabs by mouth at bedtime. [id number] by mouth. History Substance Use Topics ??? Smoking status: Never Smoker ??? Smokeless tobacco: Never Used ??? Alcohol Use: No rare family in [place], Back to exercising. Objective: BP 120/78 Pulse 81 Temp(Src) 36.9 ??C (98.5 ??F) (Tympanic) Resp 16 Wt 59.875 kg (132 lb) Estimated Body mass index is 21.31 kg/(m^2) as calculated from the following: Height as of 08/14/11: 5' 6(1.676 m). Weight as of this encounter: 132 lb(59.875 kg). ECOG Performance Status: 0 General: Comfortable, [...] neurologically intact ASSESSMENT: Ms Dow is a 41-year-old female with a [id number] invasive adenocarcinoma of the right breast with pathology indicating an estrogen-receptor positive, well- differentiated tumor. Oncotype DX testing revealed an Oncotype DX score of 20 which is in the intermediate range. She had already had a second opinion set up at [facility] [place] which she proceeded with. She met with Dr Wallace Schuster and, based on their discussion, she has foregone chemotherapy and initiated tamoxifen. She has been ontamoxifen for about 7 days. She has not experienced any side effects. We discussed the side effects of tamoxifen including an approximate 1% risk of endometrial cancer and blood clots. The symptoms of both were discussed. We also discussed other side effects including vaginal discharge, muscle cramps,hot flashes. She has not noticed any new side effects with the tamoxifen. She stopped the Wellbutrinbecause of the known interaction with the metabolism of tamoxifen. She also stopped trazodone. She acosta s not had any change in her depression symptoms. She has had worsening insomnia since discontinuing the trazodone. She has an appointment to meet with a psychiatrist tomorrow and they will discuss options to help with sleep. For now, we would recommend 5 years of antiestrogen therapy. We will see her back in about 2 months and check labs at that point. PLAN: 1. Tamoxifen 20 mg daily which would be recommended for at least 5 years. Five years of tamoxifen therapy would be completed 08/2016. 2. A handout was provided outlining the side effects of tamoxifen. 3. Check labs. CBC and CMP in approximately 2 months. 4. Patient is encouraged to call with any intercurrent concerns or problems. Jessi Pleitez MD 09/24/2011 16:33 REASON FOR OFFICE VISIT SUBJECTIVE ROS: A 10 point review of systems was obtained. Other than described in the subjective ... Medications Prior to Today's Visit Medication Sig ??? tamoxifen (NOLVADEX) 20 mg tablet Take 20 mg by mouth daily. ??? DIAZepam (VALIUM) 5 mg tablet Take 1 Tab by mouth every 6 hours as needed for Anxiety. ??? DIAZepam (VALIUM) 5 mg tablet Take 1 Tab by mouth 2 times daily. ??? FEXOFENADINE HCL (MART ORAL) Take by mouth as needed. ??? lisdexamfetamine (VYVANSE) 30 mg capsule Take 1 Cap by mouth daily. ??? trazodone (DESYREL) 50 mg tablet Take 1.5 Tabs by mouth at bedtime. [id number] by mouth. History Substance Use Topics ??? Smoking status: Never Smoker ??? Smokeless tobacco: Never Used ??? Alcohol Use: No rare Objective: BP 120/78 Pulse 81 Temp(Src) 36.9 ??C (98.5 ??F) (Tympanic) Resp 16 Wt 59.875 kg (132 lb) Estimated Body mass index is 21.31 kg/(m^2) as calculated from the following: Height as of 08/14/11: 5' 6(1.676 m). Weight as of this encounter: 132 lb(59.875 kg). ECOG Performance Status: General: Comfortable, cooperative and in no apparent [...] visit. Latest known visit with results is: Results Only on 09/02/2011 Component Date Value Range Status ??? Test Name 09/02/2011 ONCOTYPE DX, TISSUE BLOCK Final ??? Result 09/02/2011 Results to be sent directly to physician by Performing Laboratory Final ??? Ref Lab 09/02/2011 [facility] Final ??? Date Sample Shipped 09/02/2011 09/03/2011 Final ASSESSMENT: Jessi Pleitez MD 09/24/2011 16:33 documented in this encounter Plan of Treatment Upcoming Encounters Date Type Specialty Care Team Description 12/16/2021 Appointment Infusion Therapy 04/15/2022 Office Visit Hematology and Oncology Poppy Felton, PAChuyC [address] [phone] (Wo rk) 05/30/2022 Office Visit Surgical Oncology Asa Cameron MD [address] [phone] (Wo rk) Scheduled Referrals Name Type Priority Associated Diagnoses Order S chedule AMB CONSULT Outpatient Referral Routine Breast cancer Ordered : PHYSICAL THERAPY ([facility]) 09/24/2011 documented as of this encounter Results (ABNORMAL) COMPREHENSIVE METABOLIC PANEL (ONCOLOGY USE ONLY-INC MG: DRAW GREEN TOP) (11/21/2011 15:14 EDT) Pathologist Sig nature Potassium 3.9 3.5 - 5.0 mEq/L [facility] Sodium 139 136 - 145 mEq/L [facility] Chloride 105 96 - 110 mEq/L [facility] CO2 27 24 - 32 mEq/L [facility] Anion Gap 7 0 - 18 [...] Organization Address City/State/ZIP Code Phon e Number [facility] [address] [place] [address] SERVICES [facility] [address] [place] [address] documented in this encounter Visit Diagnoses Diagnosis Breast cancer (HCC-CMS) (HCC) - Primary Malignant neoplasm of breast (female), u nspecified site documented in this encounter Care Teams Rag Boiler Relationship Specialty Start Date End Date Evert Perdomo MD PCP - General 10/13/08 05/13/[address] [phone] documented as of this encounter
--- OUTSIDE RECORDS SUMMARY | 2021-11-29 00:31 | XMS_ITS | Encounter Summary ---
:1970 Author Organization [facility] Address [address] [place] [address] Care Team Providers Name Role Phone Evert Perdomo MD Primary Care Provider Reason for Visit Reason Onset Date Comments Activity Restrictions 10/02/2011 Encounter Details Date Type Department Care Team Description 10/02/2011 Telephone [facility] Emerita Beauchamp Activ anay Restrictions Plastic, Reconstructive St, RN & Cosmetic Surgery - [address], [address] [place] [address] Social History Tobacco Use Types [...] Telephone Encounter - Emerita Beauchamp RN - 10/02/2011 1639 EDT Patient has many. questions about restrictions. She is wanting to do weight lifting working with a P.T. She describes normal ROM. She has had one fill. DOS: 08/14/11. She had many questions about timing of implant exchange. She likes to ski! She is thinking about skipass. She understands she has about 10 weeks of fills ahead of her and then 3 month wait. She is off to a yoga retreat for the weekend. I encouraged her to take it easy with the pectoralis activities. documented in this encounter Plan of Treatment Upcoming Encounters Date Type Specialty Care Team Description 12/16/2021 Appointment Infusion Therapy 04/15/2022 Office Visit Hematology and Oncology Poppy Felton PA-C 111 [facility], [facility] 2 [place], [place] [phone] (Wo rk) 05/30/2022 Office Visit Surgical Oncology Asa Cameron MD 111 [facility] 2 [place], [place] [phone] (Wo rk) documented as of this encounter Visit Diagnoses Not on filedocumented in this encounter Care Teams Account Executive Key Accounts Relationship Specialty Start Date End Date Evert Perdomo MD PCP - General 10/13/08 05/13/[address] [phone] documented as of this encounter
--- OUTSIDE RECORDS SUMMARY | 2021-11-29 00:31 | XMS_ITS | Encounter Summary ---
:1970 Author Organization [facility] Address [address] [place] [address] Care Team Providers Name Role Phone Evert Perdomo MD Primary Care Provider Reason for Visit Reason Onset Date Comments Medications Refill 09/29/2011 [place] Encounter Details Date Type Department Care Team Description 09/29/2011 Refill [facility] Adult Evert Perdomo Ala, Medications Refill Primary Care - Hallie ROA (Yrisyvila) [address] [place] [address] [address] [place], [place] [address] (Wo rk) Social History Tobacco Use Types [...] capsule mouth daily for 28 days. documented in this encounter Miscellaneous Notes Telephone Encounter - Cristiane Bautista - 10/01/2011 1715 EDT Script in drawer elephone Encounter - Lucero Ly RN - 09/29/2011 1229 EDT Due [id number] signed by Lucero Ly RN at 09/29/2011 12:30 EDTTelephone Encounter - Charlotte Lynne - 09/29/2011 1140 EDT Pt left voicemail for refill of Vyvanse 30 mg 1 daily #28 Last ov 07/25/11 Call pt when ready documented in this encounter Plan of Treatment Upcoming Encounters Date Type Specialty Care Team Description 12/16/2021 Appointment Infusion Therapy 04/15/2022 Office Visit Hematology and Oncology Poppy Felton PA-C 111 [facility], [facility] 2 [place], [place] [phone] (Wo bradford) 05/30/2022 Office Visit Surgical Oncology Asa Cameron MD 111 [facility], [facility] 2 [place], [place] [phone] (Wo bradford) documented as of this encounter Visit Diagnoses Not on filedocumented in this encounter Discontinued Medications Medication Sig Discontinue Reason Start Date End Date lisdexamfetamine (VYVANSE) Take 1 Cap by Reorder 08/15/2011 09/29/2011 30 mg capsule mouth daily. documented as of this encounter Care Teams Food Stylist Relationship Specialty Start Date End Date Evert Perdomo MD PCP - General 10/13/08 05/13/[address] [place] [address] documented as of this encounter
--- OUTSIDE RECORDS SUMMARY | 2021-11-29 00:31 | XMS_ITS | Encounter Summary ---
:1970 Author Organization [facility] Address [address] [place] [address] Care Team Providers Name Role Phone Evert Perdomo MD Primary Care Provider Reason for Visit Reason Onset Date Comments Results 09/02/2011 Encounter Details Date Type Department Care Team Description 09/02/2011 Telephone [facility] Jessi Pleitez MD PhD Results Hematology & Oncology - [address] [place] [address], [address] [place], [place] [phone] [place] [phone] (Wo rk) Social History Tobacco Use [...] Telephone Encounter - Jenn Mock RN - 09/02/2011 1637 EDT Ms. Dow understands that she is scheduled to meet with Dr. Pleitez 09/09. Highlights of the pathology report from a second read at [facility] were reviewed, having discussed original results previously with Dr. Pleitez. elephone Encounter - Audelia Martínez - 09/02/2011 1354 EDT Patient thought someone was going to call her regarding results from [facility] and also wants to know about an appointment for next week. documented in this encounter Plan of Treatment Upcoming Encounters Date Type Specialty Care Team Description 12/16/2021 Appointment Infusion Therapy 04/15/2022 Office Visit Hematology and Oncology Poppy Felton, PAChuyC [address] [phone] (Wo rk) 05/30/2022 Office Visit Surgical Oncology Asa Cameron MD 111 [facility] 2 [place] [phone] (Wo rk) documented as of this encounter Visit Diagnoses Not on filedocumented in this encounter Care Teams Boatwright Relationship Specialty Start Date End Date Evert Perdomo MD PCP - General 10/13/08 05/13/[address] [address] documented as of this encounter
--- OUTSIDE RECORDS SUMMARY | 2021-11-29 00:31 | XMS_ITS | Encounter Summary ---
:1970 Author Organization [facility] Address [address] [place] [address] Care Team Providers Name Role Phone Evert Perdomo MD Primary Care Provider Reason for Visit Reason Onset Date Comments Other 08/26/2011 Question about drivi ng Encounter Details Date Type Department Care Team Description 08/26/2011 Telephone [facility] Roman Chino ( Question about Plastic, Reconstructive & MD Cuco FACS driving) Cosmetic Surgery - [address] [place], [place] [address], [address] [facility] [address] [place] [address] (Work) [phone] Social History Tobacco Use Types Packs/Day Years [...] encounter Miscellaneous Notes Telephone Encounter - Neha Wheatley RN - 08/26/2011 1507 EDT Patient had her drains removed 08/21 and has not been taking narcotic pain medication. She reports that driving is painful when she turns the steering wheel. Advised to stop driving until she is more comfortable. elephone Encounter - Margarita Vick - 08/26/2011 1428 EDT Patient had breast reconstruction w/RDN recently. Has a question about driving. Please call cell number as noted. documented in this encounter Plan of Treatment Upcoming Encounters Date Type Specialty Care Team Description 12/16/2021 Appointment Infusion Therapy 04/15/2022 Office Visit Hematology and Oncology Poppy Felton, PAChuyC 111 [facility] 2 [place], [place] [phone] (Wo rk) 05/30/2022 Office Visit Surgical Oncology Asa Cameron MD 111 [facility] 2 [place], [place] [phone] (Wo rk) documented as of this encounter Visit Diagnoses Not on filedocumented in this encounter Care Teams Accounting Systems Manager Relationship Specialty Start Date End Date Evert Perdomo MD PCP - General 10/13/08 05/13/[address] [address] documented as of this encounter
--- OUTSIDE RECORDS SUMMARY | 2021-11-29 00:31 | XMS_ITS | Encounter Summary ---
:1970 Author Organization [facility] Address [address] [place] [address] Care Team Providers Name Role Phone Evert Perdomo MD Primary Care Provider Reason for Visit Reason Onset Date Comments Appointment Related 09/10/2011 Encounter Details Date Type Department Care Team Description 09/10/2011 Telephone [facility] Jessi Pleitez MD PhD Appointment Related Hematology & Oncology 111 [facility], [facility] 111 [facility] Level 2 [place], [place] [phone] [place] [address] [phone] (Wo rk) Social History Tobacco Use [...] Telephone Encounter - Jenn Mock RN - 09/10/2011 0942 EDT Ms. Dow is aware that Oncotype test results are still pending. She will consider rescheduling to next week to discuss treatment options at that time. elephone Encounter - Jumana Orourke - 09/10/2011 0934 EDT Patient would like to know whether her results are in, please call her on her cell phone Regarding today's appointment. documented in this encounter Plan of Treatment Upcoming Encounters Date Type Specialty Care Team Description 12/16/2021 Appointment Infusion Therapy 04/15/2022 Office Visit Hematology and Oncology Poppy Felton PA-C [address] [facility] 2 [place], [place] [phone] (Wo rk) 05/30/2022 Office Visit Surgical Oncology Asa Cameron MD [address] [facility] 2 [place], [place] [phone] (Wo rk) documented as of this encounter Visit Diagnoses Not on filedocumented in this encounter Care Teams Manager It Training Relationship Specialty Start Date End Date Evert Perdomo MD PCP - General 10/13/08 05/13/[address] [phone] documented as of this encounter
--- OUTSIDE RECORDS SUMMARY | 2021-11-29 00:31 | XMS_ITS | Encounter Summary ---
:1970 Author Organization [facility] Address [address] [place] [address] Care Team Providers Name Role Phone Evert Perdomo MD Primary Care Provider Encounter Details Date Type Department Care Team Description 08/21/2011 Results Only [facility] Asa Cameron MD Surgical Oncology - [address], [address], Level 2 [place] [address] [place], [place] [phone] (Wo rk) Social History Tobacco Use Types [...] Hematology and Oncology Poppy Felton PA-C 111 [facility] 2 [place], [place] [phone] (Wo rk) 05/30/2022 Office Visit Surgical Oncology Asa Cameron MD 111 [facility] 2 [place], [place] [phone] (Wo rk) documented as of this encounter Procedures Procedure Name Priority Date/Time Associated Diagnosis Comme nts HER-2/SUPRIYA, FISH Routine 08/14/2011 12:41 EDT Resu lts for this procedure are i n the results section. documented in this encounter Results HER-2/SUPRIYA, FISH (08/14/2011 12:41 EDT) Specimen Tissue Paraffin [facility] Specimen ID [id number] [facility] Source (Note)Comment: Right [facility] breast [id number] B 2 LAB Order Date 25 Aug 2011 12:05 [facility] Reason For Referral (Note)Comment: r/o [facility] HER2 gene LAB amplification Fixative Formalin [facility] Method (Note) [facility] Comment: LAB FISH using probes for HER2 (17q12) and a chromosome 17 centromere (D17Z1) control probe ([employer] ??Two technologists score signals in 60 total nuclei from invasive or metastatic tumor and concurrent controls. Results (Note) [facility] Comment: LAB nuc yanna(D17Z1,HER2)x2 The HER2:D17Z1 ratio is 1.05. Average HER2 signals per nucleus is 1.9. Average D17Z1 signals per nucleus is 1.9. Interpretation (Note) [facility] Comment: LAB The invasive tumor nuclei have no evidence of HER2 gen e amplification (per ASCO/CAP guidelines) in this breast excision specimen. ??The HER2:D17Z1 ratio is 1.05. 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 ASCO/CAP reporting guidelines (Shandra et al., Arch Path Lab Med 131:18-43, 2007): A HER2:D17Z1 ratio less than 1.8 indicates absence of HER2 gene amplification. A HER2:D17Z1 ratio from 1.8-2.2 is equivocal for HER2 gene amplification. A HER2:D17Z1 ratio greater than 2.2 indicates HER2 gen e amplification when there are greater than 6 HER2 signa ls per nucleus. DISCLAIMER: ??This test was developed and its performa nce characteristics determined by [facility], [facility], [facility]. ??It is intended as an adjunct to existing prognostic clinical and pathologic information for breast cancer patients. ??This test is not intended to diagnose or screen for breast cancer. ??Si nce only a portion of the tumor was tested, it is possible that this result may not represent the entire tumor populat ion. Per ASCO/CAP guidelines, HER2 FISH test results are va lid for non-decalcified paraffin embedded specimens fixed in 10% neutral buffered formalin between 6 and 48 hours. ??Re sults from specimens fixed outside these parameters should b e interpreted accordingly. Associate Technician Olivia Sosa DO [facility] Report Date 29 Aug 2011 10:29 [facility] Comment: LAB Performed or Referred by: [facility] Dpt of Lab Med a nd Path, [address] [place] [address], Lab Dir: Maicol naylor III, MD Specimen Performing Organization Address City/State/ZIP Code Phon e Number [facility] [address] [place] [address] SERVICES [facility] [address] [place] [address] documented in this encounter Visit Diagnoses Not on filedocumented in this encounter Care Teams Information Assoc Relationship Specialty Start Date End Date Evert Perdomo MD PCP - General 10/13/08 05/13/[address] [phone] documented as of this encounter
--- OUTSIDE RECORDS SUMMARY | 2021-11-29 00:31 | XMS_ITS | Encounter Summary ---
:1970 Author Organization [facility] Address [address] [place] [address] Care Team Providers Name Role Phone Evert Perdomo MD Primary Care Provider Reason for Visit Reason Comments Tissue Business Objects Consultant Fill bilateral fill of 50ml/each three weeks ago Encounter Details Date Type Department Care Team Description 10/13/2011 Office Visit [facility] Roman Chino Plastic, Reconstructive Cindy Norwood FACS reconstruction (Primary & Cosmetic Surgery - [address] Dx) [place], [place] [address] [address] [address], [address] [place] [address] (Work) [phone] Social History Tobacco Use Types Packs/Day Years [...] Progress Notes Roman Chino MD - 04/17/2012 210 EST Jia is here for fill of her right l tissue clinical rehab specialist. After verbal informed consent was obtained the port was located magnetically and marked. A three step Betadine Alcohol prep was used. Using standard sterile technique and a closed system the port was accessed and the clinical rehab specialist filled with 75 cc ofinjectable saline. The patient tolerated the procedure well. Access sites were dressed with spot bandaid to be removed tomorrow. Totals were recorded on the flow sheet. She now has fills of 200 cc's bilaterally. Jia would like to stop here with plans for exchange to silicone permanent silicone implant around the last week of December or first week of January. Signs and symptoms of infection were d iscussed. She will follow up in 2 months for a pre-op appointment. documented in this encounter Plan of Treatment Upcoming Encounters Date Type Specialty Care Team Description 12/16/2021 Appointment Infusion Therapy 04/15/2022 Office Visit Hematology and Oncology Poppy Felton PA-C [address] [phone] (Larissa felder) 05/30/2022 Office Visit Surgical Oncology Asa Cameron MD [address] [phone] (Larissa felder) documented as of this encounter Visit Diagnoses Diagnosis S/P breast reconstruction - Primary Breast replaced by other means documented in this encounter Care Teams Road Cutter Relationship Specialty Start Date End Date Evert Perdomo MD PCP - General 10/13/08 05/13/[address] [address] documented as of this encounter
--- OUTSIDE RECORDS SUMMARY | 2021-11-29 00:31 | XMS_ITS | Encounter Summary ---
:1970 Author Organization [facility] Address [address] [place] [address] Care Team Providers Name Role Phone Evert Perdomo MD Primary Care Provider Reason for Visit Reason Comments Follow-up Encounter Details Date Type Department Care Team Description 11/05/2011 Office Visit [facility] Roman Chino neoplasm of Plastic, Reconstructive Cindy Norwood FACS breast ([facility]) & Cosmetic Surgery - [address] [facility] (Primary Dx) [place], [place] [address], [address] [place] [address] [address] [place] [address] (Work) [phone] Social History Tobacco Use Types Packs/Day Years [...] Patient Instructions Patient InstructionsEmerita Beauchamp RN - 11/05/2011 16:48 EDT To see what your surgical result can do for you go to: [employer] Before and after Wear bandaid for next 24 hours. Ok to shower in 24 hours. documented in this encounter Discharge Disposition Disposition Code Departure Means Destination Auto Discharge documented in this encounter Progress Notes Roman Chino MD - 04/11/2012 3288 EST Jia is here for fill of her bilateral tissue expanders. After verbal informed consent was obtained the port was located magnetically and marked. A three step Betadine Alcohol prep was used. Using standard sterile technique and a closed system the port was accessed and the crocheter filled with 50 ccof injectable saline bilaterally. The patient tolerated the procedure well. Access sites were dressed with spot bandaids to be removed tomorrow. Totals were recorded on the flow sheet. She now has fills of 250 cc's bilaterally. Signs and symptoms of infection were discussed. She will follow up in 2-3 weeks. documented in this encounter Plan of Treatment Upcoming Encounters Date Type Specialty Care Team Description 12/16/2021 Appointment Infusion Therapy 04/15/2022 Office Visit Hematology and Oncology Poppy Felton PA-C [address] [phone] (Wo rk) 05/30/2022 Office Visit Surgical Oncology Asa Cameron MD [address] [phone] (Wo rk) documented as of this encounter Visit Diagnoses Diagnosis Malignant neoplasm of breast (HCC) - Nicole rizo Malignant neoplasm of breast (female), u nspecified site documented in this encounter Care Teams Senior Lead Java Developer Relationship Specialty Start Date End Date Evert Perdomo MD PCP - General 10/13/08 05/13/[address] [address] documented as of this encounter
--- OUTSIDE RECORDS SUMMARY | 2021-11-29 00:31 | XMS_ITS | Encounter Summary ---
:[address] [facility] Address [address] [place] [address] Care Team Providers Name Role Phone Evert Perdomo MD Primary Care Provider Encounter Details Date Type Department Care Team Description 09/02/2011 Results Only [facility] Jessi Pleitez MD PhD Hematology & Oncology - [address] [place] [address] [address] [place], [place] [phone] [place] [address] [phone] (Wo rk) Social History Tobacco Use [...] and Oncology Poppy Felton PA-C [address] [phone] (Wo rk) 05/30/2022 Office Visit Surgical Oncology Asa Cameron MD [address] [phone] (Wo rk) documented as of this encounter Procedures Procedure Name Priority Date/Time Associated Diagnosis Comme nts REFERRAL TEST 1 Routine 09/02/2011 22:24 EDT Resu lts for this procedure are i n the results section. documented in this encounter Results REFERRAL TEST 1 (09/02/2011 22:24 EDT) Test Name ONCOTYPE DX, TISSUE [facility] BLOCK Result Results to be sent [facility] directly to physician by Performing Laboratory Ref Lab [facility] Date Sample 09/03/2011 [facility] Shipped Specimen Performing Organization Address City/State/ZIP Code Phon e Number [facility] [address] [place] [address] SERVICES [facility] [address] [place] [address] documented in this encounter Visit Diagnoses Not on filedocumented in this encounter Care Teams Mailroom Courier Relationship Specialty Start Date End Date Evert Perdomo MD PCP - General 10/13/08 05/13/[address] [phone] documented as of this encounter
--- OUTSIDE RECORDS SUMMARY | 2021-11-29 00:31 | XMS_ITS | Encounter Summary ---
:1970 Author Organization [facility] Address [address] [place] [address] Care Team Providers Name Role Phone Evert Perdomo MD Primary Care Provider Reason for Visit Reason Comments Post-OP Follow Up dos 08/14/11 Encounter Details Date Type Department Care Team Description 08/20/2011 Office Visit [facility] Roman Chino Follow- up Plastic, Reconstructive Cindy Norwood FACS examination, & Cosmetic Surgery - 130 [facility] following unspecified [place], [place] surgery (Primary Dx) 354 [facility], [address] [place] [address] [address] [place] [address] (Work) [phone] Social History Tobacco Use Types Packs/Day Years [...] Patient Instructions Patient InstructionsEmerita Beauchamp RN - 08/20/2011 12:08 EDT Call when 20 cc for two days in a row. Thursday at the soonest. Call [phone] and Neha will get you seen. documented in this encounter Ordered Prescriptions Prescription Sig Dispensed Refills Start Date End Date promethazine (PHENERGAN) Take 0.5 Tabs by 10 Tab 0 08/1909/10/2011 25 mg tablet mouth every 6 hours as needed for Nausea. DIAZepam (VALIUM) 5 mg Take 1 Tab by mouth 30 Tab 0 07/2511/18/2011 tablet every 6 hours as needed for Anxiety. tramadol (ULTRAM) 50 mg Take 1 Tab by mouth 30 Tab 0 09/10/2011 tablet every 6 hours as needed for Pain. documented in this encounter Progress Notes Roman Chino MD - 04/17/2012 1537 EST Jia follows for her 08/14/11 immediate breast reconstruction with bilateral tissue expanders and acellular dermal matrix. She reports no problems. On examination the incisions are healing nicely. Drain sites look good. There are no signs of infection or dehiscence. There are no signs of seroma formation. Followup with me 6 weeks from the DOS for likely first fill. If drains are meeting criteria of less than 20cc in a 2 day period, Jia knows to call my office and have them removed by nursing. Signs and symptoms of infection and other complications were discussed. Jia knows to call for questions or concerns. documented in this encounter Plan of Treatment Upcoming Encounters Date Type Specialty Care Team Description 12/16/2021 Appointment Infusion Therapy 04/15/2022 Office Visit Hematology and Oncology Poppy Felton PA-C 111 [facility] 2 [place], [place] [phone] (Wo rk) 05/30/2022 Office Visit Surgical Oncology Asa Cameron MD 111 [facility] 2 [place], [place] [phone] (Wo rk) documented as of this encounter Visit Diagnoses Diagnosis Follow-up examination, following unspeci fied surgery - Primary documented in this encounter Care Teams Tent Worker Relationship Specialty Start Date End Date Evert Perdomo MD PCP - General 10/13/08 05/13/[address] [address] documented as of this encounter
--- OUTSIDE RECORDS SUMMARY | 2021-11-29 00:31 | XMS_ITS | Encounter Summary ---
:1970 Author Organization [facility] Address [address] [place] [address] Care Team Providers Name Role Phone Evert Perdomo MD Primary Care Provider Reason for Visit Reason Onset Date Comments Medications Refill 10/28/2011 Encounter Details Date Type Department Care Team Description 10/28/[address] [facility] Adult Evert Perdomo MD Medications Refill Primary Care - [address] [phone] (Wo rk) Social History Tobacco Use Types [...] Take 1 Cap by 28 Cap 0 201111/18/2011 30 mg capsule mouth daily for 28 days. documented in this encounter Miscellaneous Notes Telephone Encounter - Cristiane Bautista - 10/31/2011 0855 EDT Script in drawer elephone Encounter - Lucero Ly RN - 10/28/2011 1603 EDT Patient due [id number] signed by Lucero Ly RN at 10/28/2011 16:03 EDTTelephone Encounter - Zoraida Malin - 10/28/2011 1528 EDT Refill line Name of Medication Vyvanse 30mg Last Refill Date 09/29/11 Last Visit Date 07/25/11 Next Visit Date 11/18/11 Is patient out of medication? unknown documented in this encounter Plan of Treatment Upcoming Encounters Date Type Specialty Care Team Description 12/16/2021 Appointment Infusion Therapy 04/15/2022 Office Visit Hematology and Oncology Poppy Felton PA-C 111 [facility] 2 [place], [place] [phone] (Wo bradford) 05/30/2022 Office Visit Surgical Oncology Asa Cameron MD 111 [facility] 2 [place], [place] [phone] (Wo bradford) documented as of this encounter Visit Diagnoses Not on filedocumented in this encounter Discontinued Medications Medication Sig Discontinue Reason Start Date End Date lisdexamfetamine (VYVANSE) Take 1 Cap by Reorder 09/29/2011 10/28/2011 30 mg capsule mouth daily for 28 days. documented as of this encounter Care Teams [employer]ta Relationship Specialty Start Date End Date Evert Perdomo MD PCP - General 10/13/08 05/13/[address] [place] [address] documented as of this encounter
--- OUTSIDE RECORDS SUMMARY | 2021-11-29 00:31 | XMS_ITS | Encounter Summary ---
:1970 Author Organization [facility] Address [address] [place] [address] Care Team Providers Name Role Phone Evert Perdomo MD Primary Care Provider Reason for Referral Consult, Test and Treat (Routine/Next Available) - Closed Specialty Diagnoses / Procedures Referred By Contact Refer red To Contact [facility] Diagnoses Breast cancer ([facility]) ([facility]) Jessi Pleitez MD PhD [facility] [address] [place] [phone] [place] [address], Level 2 [place], [place] Fax: [phone] Referral ID Status Reason Start Date Expiration Date Visits V isits Requested Authorized [id number] Closed Specialty 10/16/2011 1 1 Services Required Question Answer Reason for Request: Referal to PT for ROM and ly mphedema education Encounter Details Date Type Department Care Team Description 10/16/[address] [facility] Cancer Center Jessi Pleitez MD Breas t cancer Hematology & Oncology PhD ([facility]) (Primary - [address] D[address]) [address] [place] [address] [facility] [phone] [address], Level [address] [place] [phone] (Wo rk) Social History Tobacco [...] Hematology and Oncology Poppy Felton, PAChuyC 111 [facility] 2 [place], [place] [phone] (Wo rk) 05/30/2022 Office Visit Surgical Oncology Asa Cameron MD 111 [facility], [facility] 2 [place], [place] [phone] (Wo rk) Scheduled Referrals Name Type Priority Associated Diagnoses Order S chedule AMB CONSULT Outpatient Referral Routine Breast cancer Ordered : PHYSICAL THERAPY (CMS-HCC) 10/16/2011 documented as of this encounter Visit Diagnoses Diagnosis Breast cancer (HCC-CMS) (HCC) - Primary Malignant neoplasm of breast (female), u nspecified site documented in this encounter Care Teams Grinding Wheel Operator Relationship Specialty Start Date End Date Evert Perdomo MD PCP - General 10/13/08 05/13/16 [address] [place] [address] documented as of this encounter
--- OUTSIDE RECORDS SUMMARY | 2021-11-29 00:31 | XMS_ITS | Encounter Summary ---
:1970 Author Organization [facility] Address [address] [place] [address] Care Team Providers Name Role Phone Evert Perdomo MD Primary Care Provider Reason for Visit Reason Comments Genetic Evaluation Encounter Details Date Type Department Care Team Description 08/22/2011 Office Visit [facility] Unknown, Christos alanis MD Genetic counseling and testing (Primary Dx); Hematology & Virginia Mccracken, MS [address] [place], [place] [phone] Breast cancer (CMS-HCC); Oncology - Main Family histo ry of breast cancer [place] [address] [place], [place] [id number] Social History Tobacco Use Types Packs/Day Years [...] documented as of this encounter Progress Notes Virginia Mccracken, MS - 08/25/2011 1123 EDT DIVISION OF HEMATOLOGY / ONCOLOGY August 22, 2011 [place] [address] Cameron: Thank you for referring your patient, Jia Dow to the Familial Cancer Program to discuss options for genetic testing based on her recent diagnosis of breast cancer. Jia was evaluated, together with her mother, on August 22, 2011. I reviewed Jia's personal medical history, as well as her family history, discussed options for genetic testing, as well as implications of any results. Medical History: Jia is a 41-year-old woman who was diagnosed with breast cancer recently in her right breast. Shefound a lump at the end of June, which was confirmed by her primary care provider. She went on to have a diagnostic mammogram, followed by an ultrasound, and a biopsy. The biopsy revealed infiltrating ductal carcinoma, nuclear grade 2, with ductal carcinoma in situ and one area suspicious for LVI. BothER and OH were positive. Jia has since undergone bilateral mastectomies on August 13 and was found to have a 1.2 cm, well-differentiated, invasive ductal carcinoma. Zero of four lymph nodes were positive and again the tumor was ER/OH positive and HER-2 was weakly positive and has been sent for FISH. Following the results of the FISH testing, if HER-2 is negative, then Oncotype DX testing will be performed. Jia currently has expanders as part of her reconstructive process. Jia's medical history is also of note for the diagnosis of ADHD in 1994. She also has a history of depression and anxiety. Her current medications include Wellbutrin, trazodone and Concerta. Menstrual History: Jia started her periods at the age of 14. She has had 2 pregnancies, the first at age 29. She didbreastfeed both of her children. She has taken oral contraceptives in the past starting around age 19 up until the time of her breast cancer diagnosis, with interruption for pregnancies. Social History: Jia was born in [place]. She is . She has 2 children. 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 She has never been a smoker. She socially drinks alcohol and has a healthy lifestyle with regards to diet and exercise. Family History: Jia has 2 children, a daughter age 10 and a son age 12. She also has 1 brother age 42 who was diagnosed with thyroid cancer in his 20s. Jia also has 1 maternal half-brother who is 27 and in good health. Jia's maternal family history includes her mom, who is 68 years of age and was present during ourconversation. Her history is of note for a hysterectomy at age 44 or 45. One ovary was left behind. She receives mammograms every 2 years and has never had a breast problem. Jia's mother has no fullsiblings. She has 3 maternal half-siblings who are in their 50s and 60s and healthy. Jia's maternal grandmother was diagnosed with breast cancer at age 46. She at age 60 from metastatic bone cancer. Jia's mother recently heard through other family members that her mother may have also had a diagnosis of ovarian cancer, but this is very unclear. Jia's maternal grandmother had 9 siblings, including 5 brothers and 4 sisters. One sister was diagnosed with breast cancer in her 70s and one was diagnosed with lung cancer. Many of these relatives were smokers. Jia's maternal relatives are of [place] ancestry. Jia's paternal family history is of note for her father who is 76 years of age and has some colonissues; it is not clear what these issues are. Her father has 1 brother who is alive and well and has 5 children including 2 daughters and 3 sons. One of these individuals was diagnosed with melanoma in their 30s. There is no other history of malignancy amongst Jia's paternal relatives. This side of the family is of northern mixed ancestry. Assessment: I discussed with Jia the possibility that inherited factors may be playing a role in the development of cancer in her family. Based on two cases of breast cancer under the age of 50, we discussed that there could be an approximate 20% likelihood of a BRCA1 or BRCA2 mutation being present. We discussed the risks, benefits and limitations of Jia undergoing BRCA testing. If she is BRCA positive, she would have an increased risk for both breast and ovarian cancer. However, since she has undergone bilateral mastectomies, she has reduced her future breast cancer risk to the greatest extent. Her risk of ovarian cancer would be somewhere between 25 and 50%. We did discuss the recommendation for a prophylactic oophorectomy in BRCA carriers between the ages of 40 and 50. We also discussed implications for family members. If Jia undergoes BRCA testing and no mutations are identified, we discussed that this is considered an inconclusive result and future cancer risks are based on family history. As she has no family history of breast or ovarian cancer, her risk for these cancers would be considered average. We did also discuss with Jia's mom that regardless of genetic test results, she may be at above average-risk for developing breast cancer, which may warrant increased screening. We will await the results of genetic testing before making final recommendations. Plan: Jia was interested in having BRCA testing and proceeded to the blood drawing lab where her blood was drawn and sent to [facility]. Results will be available in approximately 2 to 3 weeks' time. We will contact Jia by phone. If she is positive for BRCA mutation, we will have her return to the Familial Cancer Program for further discussion of the implications of these results. Time: Jia and her mother were seen for approximately 60 minutes with 100% of this hnrd-ly-wpcp time spent in counseling. Sincerely, Supervising Physician Edited and Electronically Signed by Yasmeen Finnegan MD 09/22/2011 10:23 Electronically Reviewed by Virginia Mccracken MS 09/02/2011 14:42 Virginia Mccracken, MS Yasmeen Finnegan MD Hematology / Oncology Attending - Virginia Mccracken MS - SAMEER Job ID: SM Doc ID: [id number] Ext Doc ID: [id number] cc: MD Nika Ames MD Seth P Harlow, MD Ruth Heimann, MD Mark A Levine, MD Robert D Nesbit, MD eKllyjulietVirginia, - 08/22/2011 1114 EDT Note dictated documented in this encounter Plan of Treatment Upcoming Encounters Date Type Specialty Care Team Description 12/16/2021 Appointment Infusion Therapy 04/15/2022 Office Visit Hematology and Oncology Poppy Felton PA-C 111 [facility] 2 [place], [place] [phone] (Wo rk) 05/30/2022 Office Visit Surgical Oncology Asa Cameron MD [address] [phone] (Wo rk) documented as of this encounter Visit Diagnoses Diagnosis Genetic counseling and testing - Primary Genetic counseling Breast cancer (HCC-CMS) (HCC) Malignant neoplasm of breast (female), u nspecified site Family history of breast cancer Family history of malignant neoplasm of breast documented in this encounter Care Teams Tool Designer Apprentice Relationship Specialty Start Date End Date Evert Perdomo MD PCP - General 10/13/08 05/13/[address] [address] documented as of this encounter
--- OUTSIDE RECORDS SUMMARY | 2021-11-29 00:31 | XMS_ITS | Encounter Summary ---
:1970 Author Organization [facility] Address [address] [place] [address] Care Team Providers Name Role Phone Evert Perdomo MD Primary Care Provider Encounter Details Date Type Department Care Team Description 08/22/2011 Results Only [facility] Yasmeen Finnegan MD Hematology & Oncology - [address] [place], [place] [id number] [place] [address] [phone] (Wo rk) Social History Tobacco Use [...] Hematology and Oncology Poppy Felton PA-C [address] [phone] (Wo rk) 05/30/2022 Office Visit Surgical Oncology Asa Cameron MD [address] [phone] (Wo rk) documented as of this encounter Procedures Procedure Name Priority Date/Time Associated Diagnosis Comme nts REFERRAL TEST 1 Routine 08/22/2011 11:09 EDT Resu lts for this procedure are i n the results section. documented in this encounter Results REFERRAL TEST 1 (08/22/2011 11:09 EDT) Test Name [facility] Result Results to be sent [facility] directly to physician LAB by Performing Laboratory Ref Lab [facility] Date Sample [id number] [facility] Specimen Performing Organization Address City/State/ZIP Code Phon e Number [facility] [address] [place] [address] [facility] [address] [place] [address] documented in this encounter Visit Diagnoses Not on filedocumented in this encounter Care Teams Wildlife Policy Professional Relationship Specialty Start Date End Date Evert Perdomo MD PCP - General 10/13/08 05/13/[address] [phone] documented as of this encounter
--- OUTSIDE RECORDS SUMMARY | 2021-11-29 00:31 | XMS_ITS | Encounter Summary ---
:1970 Author Organization [facility] Address [address] [place] [address] Care Team Providers Name Role Phone Evert Perdomo MD Primary Care Provider Philip Schulz MD Primary Care Provider Jia Minor PA-C Primary Care Provider Unavailable Filomena Ochoa PA-C Primary Care Provider [phone] Encounter Details Date Type Department Care Team Description 09/10/2011 Documentation Visit [facility] Boaz Avitia MD PhD Radiation Oncology - [address] [place] [address], [address] [place], [place] [id number] [place] [phone] (Wo rk) Social History Tobacco Use Types [...] encounter Progress Notes Virginia Mccracken, MS - 09/11/2011 0528 EDT DIVISION OF HEMATOLOGY / ONCOLOGY September 10, 2011 JIA BOTELLO [address] [place] [phone] Dear Jia: We are writing to summarize the results of your genetic testing. We had previously seen you in the Familial Cancer Program on 08/22/2011. You were referred for genetic counseling to discuss options for genetic testing based on your recent diagnosis of breast cancer. Following this discussion, you choseto undergo genetic testing for BRCA1 and BRCA2, the 2 genes associated with the majority of inherited breast and ovarian cancer. These results have been discussed with you by phone. These results as well as our conclusions and recommendations are summarized below. Results: The results of genetic testing did not identify any abnormalities in either the BRCA1 or BRCA2 genes. To summarize, your personal medical history is of note for the diagnosis of breast cancer in your right breast. You underwent bilateral mastectomies on August 13 of this year. You were found to have a 1.2 cm well-differentiated infiltrating ductal carcinoma that was estrogen and progesterone positive and HER-2 negative. No lymph nodes contained cancer cells. You underwent reconstructive surgery at the time of your mastectomies as well. Your family history includes your only sibling, a brother who was diagnosed with thyroid cancer in his 20s. Amongst your maternal relatives, it is of note for your grandmother who was diagnosed with breast cancer at the age of 46. She then at age 60 from metastatic disease. The only history of cancer on your paternal side of the family is a cousin who was diagnosed with melanoma in his 30s. Your ancestry is northern . As noted above, the results of genetic testing did not identify any abnormalities in either the BRCA1 or BRCA2 genes. A copy of these results have been sent to you separately. We discussed possible explanations for these results. These include: 1. It is possible you carry a mutation in one of these 2 genes, but it was not detected. While you had the most comprehensive of testing available, there is additional testing of the BRCA genes lookingfor large rearrangements (CHRISTIAN). Your insurance would not cover the cost of this additional testing.The likelihood you carry a CHRISTIAN-type mutation is on the order of 1 to 2% and the additional cost is $700. We would not encourage you to pay out of pocket for this additional testing due to the low likelihood of finding a mutation. 2. It is possible you carry mutation in a different cancer susceptibility gene. While the BRCA genesaccount for most inherited breast and ovarian cancer, there are other breast cancer susceptibility genes. We discussed possible participation in a research study based out of the [facility] in which researchers are looking for mutations in other breast cancer susceptibility genes in women who were diagnosed with breast cancer under the age of 40. You seemed interested in this study and your information was forwarded to the researchers to determine if you are eligible. If you are eligible, the research coordinator will contact you directly to discuss your participation. 3. It is possible that your diagnosis of breast cancer is not hereditary that is due to one single gene mutation, but may be a combination of many factors interacting together. Possible interacting factors include multiple genetic, environmental and other biologic factors. As your genetic test results are considered inconclusive at this time, we base future cancer risks for you and your family on the family history. You do have a second-degree relative with early onset breast cancer and therefore may have above average risk for a second primary breast cancer; however, you have undergone bilateral mastectomies and therefore have reduced your risk of a second primary breast cancer to the greatest extent. With regards to your risk of ovarian cancer, we discussed that it is no higher than for other women in the population. Women who have no family history and no identifiable BRCA mutations have an approximate 1% to 2% lifetime risk for developing ovarian cancer. No increased screening or prevention is recommended at this time. It was a pleasure to meet with you. We hope our discussions were helpful. Should you have further questions or concerns regarding any of the information we discussed, please do not hesitate to contact our office. Sincerely, Electronically Signed by Yasmeen Finnegan MD 09/26/2011 05:25 Electronically Reviewed by Virginia Mccracken MS 09/11/2011 14:16 Amanda Julio Kaykay, MSWedeshaun Julio Kaykay, Tommie Finnegan MDHematology / Oncology Attending - Virginia Mccracken, - RF Job ID: SM Doc ID: [id number] Ext Doc ID: [id number] cc: MD Nika Ames MD Seth P Harlow, MD Ruth Heimann, MD Mark A Levine, MD Robert D Nesbit, MD The Patient documented in this encounter Plan of Treatment Upcoming Encounters Date Type Specialty Care Team Description 12/16/2021 Appointment Infusion Therapy 04/15/2022 Office Visit Hematology and Oncology Poppy Felton PA-C 111 [facility] 2 [place], [place] [phone] (Wo rk) 05/30/2022 Office Visit Surgical Oncology Asa Cameron MD [address] [phone] (Wo rk) documented as of this encounter Visit Diagnoses Not on filedocumented in this encounter Additional Health Concerns Infection Onset Date Last Indicated Resolved Time R/O COVID-19 10/16/2019 10/16/2019 10/21/2019 22:15 EDT documented as of this encounter Care Teams Kst Operator Relationship Specialty Start Date End Date Evert Perdomo MD PCP - General 10/13/08 05/13/16 108 [facility] [address] [place] [address] Philip Schulz MD PCP - General 05/14/16 12/06/[address] [place] [address] DR MELO, FOUZIA [phone] Jia Minor PA-C PCP - General 12/07/1703/01/18 Filomena Ochoa PA-C PCP - General 03/02/18 [address] [place] [phone] documented as of this encounter
--- OUTSIDE RECORDS SUMMARY | 2021-11-29 00:31 | XMS_ITS | Encounter Summary ---
:1970 Author Organization [facility] Address [address] [place] [address] Care Team Providers Name Role Phone Evert Perdomo MD Primary Care Provider Encounter Details Date Type Department Care Team Description 10/22/2011 Results Only [facility] Aimee Charles MD Laboratory Services - [address] [place] [address] [address] [place] [phone] (Wo rk) Social History Tobacco Use Types [...] Hematology and Oncology Poppy Felton PA-C [address] [phone] (Wo rk) 05/30/2022 Office Visit Surgical Oncology Asa Cameron MD [address] [phone] (Wo rk) documented as of this encounter Procedures Procedure Name Priority Date/Time Associated Diagnosis Comme nts PAP TEST- RESULT Routine 10/22/2011 0:00 EDT Resu lts for this ONLY procedure are i n the results section. documented in this encounter Results PAP TEST- RESULT ONLY (10/22/2011 0:00 EDT) Pathology Report: CYTOPATHOLOGY REPORT [facility] Reports generated via electronic interface contain masha ginal data; however they are lacking the format of the original re port. Caution should be taken when reading/interpreting unfo rmatted reports. Name: ? JIA BOTELLO ? Accession #: ? [id number] ? : ? 1970 (Age: 41) ??F ?Collect Da te: ? 10/22/2011 ? Location: ? [facility] ? Receive Date: ? 10/23/19 12 ? Provider: HARRIETT CHARLES MD Copy to: ? Final Report SPECIMEN ADEQUACY ? Satisfactory for Evaluation - transformation zone component present GENERAL CATEGORIZATION ? Negative for Intraepithelial Lesion or Malignan cy ?? Last Menstural Period: today Hormonal/Contraceptive status: Tamoxifen Other: Additional clinical information: H/O Breast CA Specimen/Source: ??Pap Test, Cervix/Endocervix, ThinPr ep Imaging System with manual evaluation Document reviewed and electronically signed by: ? Natalia Cuellar, CT(ASCP) ? Report ??Date: 10/30/2011 14:23 HPV with Pap Test ? Date Ordered: ? 10/30/2011 ? Status: ?? Signed Out ?Date Complete: ? 11/03/2011 ? By: ??S ystem Interface ? Date Reported: ? 11/03/2011 ? Interpretation RESULT: Negative for HPV. No E6 or E7 mRNA is detected from HPV types 16,18,31,3 3,35, 39,45,51,52,56,58,59,66, and 68 by instructional design technologist media mervat amplification. Comments Document reviewed and electronically signed by: ? System Interface ? Report date: 11/03/2011 By the signature above, the attending physician certif ies that he/she has personally conducted a gross and/or microscopic examin ation of the described specimens and rendered or confirmed the above diagnosi s. End of Report Specimen Performing Organization Address City/State/ZIP Code Phon e Number [facility] [address] [place] [address] SERVICES [facility] [address] [place] [address] documented in this encounter Visit Diagnoses Not on filedocumented in this encounter Care Teams Wall Attendant Relationship Specialty Start Date End Date Evert Perdomo MD PCP - General 10/13/08 05/13/[address] [address] documented as of this encounter
--- OUTSIDE RECORDS SUMMARY | 2021-11-29 00:31 | XMS_ITS | Encounter Summary ---
:1970 Author Organization [facility] Address [address] [place] [address] Care Team Providers Name Role Phone Evert Perdomo MD Primary Care Provider Reason for Visit Reason Comments Post-OP Follow Up Drain removal Encounter Details Date Type Department Care Team Description 08/22/2011 Nurse Only [facility] Unknown, Josh ge MD Follow-up examination, Plastic, Reconstructive & Nurse, Plastics, RN following unspecified Cosmetic Surgery - surgery ( Primary Dx) [address], [address] [place] [address] Social History Tobacco Use Types [...] as of this encounter Progress Notes Neha Wheatley, RN - 08/22/2011 1518 EDT Plastic Surgery Drain Removal Procedure: Bilateral tissue manager appointment reconstruction Surgeon: Dr. Roman Chino Date of Surgery: 08/14/11 Please see drain record. Color of drainage: serous Drains removed without incident: Yes Bacitracin applied to holes: Yes Dressing used: 2x2 gauze Wound care instructions given. Jia's next appointment is on 09/22/11. Neha Wheatley RN 08/22/2011 15:18 documented in this encounter Plan of Treatment Upcoming Encounters Date Type Specialty Care Team Description 12/16/2021 Appointment Infusion Therapy 04/15/2022 Office Visit Hematology and Oncology Poppy Felton PA-C 111 [facility] 2 [place], [place] [phone] (Wo rk) 05/30/2022 Office Visit Surgical Oncology Asa Cameron MD 111 [facility] 2 [place], [place] [phone] (Wo rk) documented as of this encounter Visit Diagnoses Diagnosis Follow-up examination, following unspeci fied surgery - Primary documented in this encounter Care Teams Statistician Theoretical Relationship Specialty Start Date End Date Evert Perdomo MD PCP - General 10/13/08 05/13/[address] [address] documented as of this encounter
--- OUTSIDE RECORDS SUMMARY | 2021-11-29 00:31 | XMS_ITS | Encounter Summary ---
:1970 Author Organization [facility] Address [address] [place] [address] Care Team Providers Name Role Phone Evert Perdomo MD Primary Care Provider Reason for Visit Reason Onset Date Comments Appointment Related 10/02/2011 Encounter Details Date Type Department Care Team Description 10/02/2011 Telephone [facility] Olivia Coronado A ppointment Related Oncology Rehabilitation - [address] [phone] [facility] 2 [place] [phone] (Wo rk) Social History Tobacco [...] Notes Telephone Encounter - Margarita Rizzo - 10/06/2011 1008 EDT [facility] Evaluation rescheduled to 10/16/[address] [facility] location. Telephone Encounter - Ute Bueno - 10/02/2011 1602 EDT Rehabilitation Therapies [facility] [address] [place] [address] The patient called to cancel today's appointment 10/02/11 due to that her [facility] insurance stated that Sharon Jacinto is not in her network for her health insurance. This patient stated that Dr Jessi Pleitez is in her [facility] insurance network. The patient opted to cancel both of her visits today 10/02/11. We will give her a call to reschedule with Dr Jessi Pleitez and Felicia Howard P.T., at a later time. Ute Bueno 10/02/2011 16:02 documented in this encounter Plan of Treatment Upcoming Encounters Date Type Specialty Care Team Description 12/16/2021 Appointment Infusion Therapy 04/15/2022 Office Visit Hematology and Oncology Poppy Felton PA-C [address] [phone] (Wo rk) 05/30/2022 Office Visit Surgical Oncology Asa Cameron MD [address] [phone] (Wo rk) documented as of this encounter Visit Diagnoses Not on filedocumented in this encounter Care Teams Sheriff Officer Relationship Specialty Start Date End Date Evert Perdomo MD PCP - General 10/13/08 05/13/[address] [address] documented as of this encounter
--- OUTSIDE RECORDS SUMMARY | 2021-11-29 00:31 | XMS_ITS | Encounter Summary ---
:1970 Author Organization [facility] Address [address] [place] [address] Care Team Providers Name Role Phone Evert Perdomo MD Primary Care Provider Reason for Visit Reason Onset Date Comments Appointment Related 10/20/2011 Encounter Details Date Type Department Care Team Description 10/20/2011 Telephone [facility] Evert Perdomo, Mary ointment Related Rehabilitation Therapy - [address] [address] [place], [place] [phone] Social History Tobacco Use Types Packs/Day [...] this encounter Miscellaneous Notes Telephone Encounter - Jessica San - 10/20/2011 1516 EDT [facility]) [address] [facility] [address] A therapy referral was received for Jia Norman Paloma. Attempted to contact Ms. Dow to schedule her initial therapy visit. Left message. Jessica San 10/20/2011 15:16 documented in this encounter Plan of Treatment Upcoming Encounters Date Type Specialty Care Team Description 12/16/2021 Appointment Infusion Therapy 04/15/2022 Office Visit Hematology and Oncology Poppy Felton, PACl 111 [facility], [facility] 2 [place], [place] [phone] (Wo rk) 05/30/2022 Office Visit Surgical Oncology Asa Cameron MD [address] [phone] (Wo rk) documented as of this encounter Visit Diagnoses Not on filedocumented in this encounter Care Teams Stacker And Sorter Operator Relationship Specialty Start Date End Date Evert Perdomo MD PCP - General 10/13/08 05/13/[address] [phone] documented as of this encounter
--- OUTSIDE RECORDS SUMMARY | 2021-11-29 00:31 | XMS_ITS | Encounter Summary ---
:1970 Author Organization [facility] Address [address] [place] [address] Care Team Providers Name Role Phone Evert Perdomo MD Primary Care Provider Reason for Visit Reason Onset Date Comments Appointment Related 10/22/2011 Encounter Details Date Type Department Care Team Description 10/22/2011 Telephone [facility] Asa Cameron MD Appointment Related Surgical Oncology - [address] [place] [address], [address], [address] 2 [place], [place] [id number] [place] [address] [phone] (Wo rk) Social History Tobacco Use [...] this encounter Miscellaneous Notes Telephone Encounter - Eli Driscoll - 10/22/2011 1501 EDT Patient is requesting a call back. Per patient, she would like to change her ..[address] Cameron to some time in January if possible. documented in this encounter Plan of Treatment Upcoming Encounters Date Type Specialty Care Team Description 12/16/2021 Appointment Infusion Therapy 04/15/2022 Office Visit Hematology and Oncology Poppy Felton, PAChuyC [address] [phone] (Wo rk) 05/30/2022 Office Visit Surgical Oncology Asa Cameron MD [address] 0 [phone] (Wo rk) documented as of this encounter Visit Diagnoses Not on filedocumented in this encounter Care Teams Audience Coordinator Relationship Specialty Start Date End Date Evert Perdomo MD PCP - General 10/13/08 05/13/[address] [phone] documented as of this encounter
--- OUTSIDE RECORDS SUMMARY | 2021-11-29 00:31 | XMS_ITS | Encounter Summary ---
:1970 Author Organization [facility] Address [address] [place] [address] Care Team Providers Name Role Phone Evert Perdomo MD Primary Care Provider Reason for Visit Reason Onset Date Comments Appointment Related 10/22/2011 Encounter Details Date Type Department Care Team Description 10/22/2011 Telephone [facility] Jessi Pleitez MD Appo intment Related Rehabilitation Therapy - PhD [address] [phone] [facility] 2 [place] [phone] (Wo rk) Social History Tobacco [...] this encounter Miscellaneous Notes Telephone Encounter - Mariella Allen - 10/22/2011 1312 EDT Jia returned our call in regards to scheduling physical therapy. She states that she did not knowthat her doctor's office was sending one to a specific site and she has already made an appointment at another location. documented in this encounter Plan of Treatment Upcoming Encounters Date Type Specialty Care Team Description 12/16/2021 Appointment Infusion Therapy 04/15/2022 Office Visit Hematology and Oncology Poppy Felton, PA-C [address] [phone] (Wo rk) 05/30/2022 Office Visit Surgical Oncology Asa Cameron MD [address] [phone] (Wo rk) documented as of this encounter Visit Diagnoses Not on filedocumented in this encounter Care Teams Acute Care Surgeon Relationship Specialty Start Date End Date Evert Perdomo MD PCP - General 10/13/08 05/13/[address] [address] documented as of this encounter
--- OUTSIDE RECORDS SUMMARY | 2021-11-29 00:32 | XMS_ITS | Encounter Summary ---
:1970 Author Organization [facility] Address [address] [place] [address] Care Team Providers Name Role Phone Evert Perdomo MD Primary Care Provider Encounter Details Date Type Department Care Team Description 07/25/2011 - Hospital Encounter [facility] Cristina Avitia M D 08/13/2011 Radiation Oncology - PhD [address], [place] [phone] [facility] Level 2 [place] [address] (Wo rk) Social History Tobacco [...] 09/10/2011 27 mg CR tablet mouth daily. Wallace-3 Fatty Acids-Vitamin Take by mouth. 0 09/10/2011 [...] Tab 1 02/2411/11/2011 tablet mouth at bedtime. [id number] by mouth. documented as of this encounter Discharge Disposition Disposition Code Departure Means Destination Admitted to this Hospital documented in this encounter Plan of Treatment Upcoming Encounters Date Type Specialty Care Team Description 12/16/2021 Appointment Infusion Therapy 04/15/2022 Office Visit Hematology and Oncology Poppy Felton, PACl 111 [facility], [facility] 2 [place], [place] [phone] (Wo rk) 05/30/2022 Office Visit Surgical Oncology Asa Cameron MD 111 [facility], [facility], Level 2 [place], [place] [phone] (Wo rk) documented as of this encounter Visit Diagnoses Not on filedocumented in this encounter Care Teams Patent Searcher Relationship Specialty Start Date End Date Evert Perdomo MD PCP - General 10/13/08 05/13/[address] [address] documented as of this encounter
--- OUTSIDE RECORDS SUMMARY | 2021-11-29 00:32 | XMS_ITS | Encounter Summary ---
:1970 Author Organization [facility] Address [address] [place] [address] Care Team Providers Name Role Phone Evert Perdomo MD Primary Care Provider Reason for Visit Reason Comments Mood Disorder Encounter Details Date Type Department Care Team Description 09/09/2010 Office Visit [facility] Nito Xiao, Uns pecified episodic Psychiatry - S mood disorder [address] (Primary Dx) [address] [place] [address] [place], [place] [address] (Wo rk) Social History Tobacco [...] documented as of this encounter Miscellaneous Notes Scanned Note-Null - [place], Wire Winder - 09/16/2010 1016 EDT documented in this encounter Plan of Treatment Upcoming Encounters Date Type Specialty Care Team Description 12/16/2021 Appointment Infusion Therapy 04/15/2022 Office Visit Hematology and Oncology Poppy Felton PA-C [address] [phone] (Wo rk) 05/30/2022 Office Visit Surgical Oncology Asa Cameron MD [address] [phone] (Wo rk) documented as of this encounter Visit Diagnoses Diagnosis Unspecified episodic mood disorder - [facility] documented in this encounter Care Teams Tar Chaser Relationship Specialty Start Date End Date Evert Perdomo MD PCP - General 10/13/08 05/13/[address] [phone] documented as of this encounter
--- OUTSIDE RECORDS SUMMARY | 2021-11-29 00:32 | XMS_ITS | Encounter Summary ---
:[address] [facility] Address [address] [place] [address] Care Team Providers Name Role Phone Evert Perdomo MD Primary Care Provider Reason for Visit Reason Onset Date Comments Prior Auth, Other (i.e. radiology, 08/12/2011 Per Cindy garcia CPT's 71914,19928, DOS etc.) 08/13/11 , 23 hr stay , Do not req prior auth, CPT-17461 does , LMVM for jesse John, that no auth started yet Encounter Details Date Type Department Care Team Description 08/12/2011 Telephone [facility] Asa Cameron MD Prior Auth, Other Surgical Oncology - [address] [place] [address] (i.e. radiology, etc.) [facility], [facility] (Per Nelda CPT's [address] [facility], Level 2 [id number], [place] [address] [place] 08/13/11 , 23 hr stay, [phone] Do not req prior auth, (Wo rk) CPT-81641 does, LMVM for jesse John , that no auth started ye t) Social History Tobacco Use Types Packs/Day Years [...] encounter Miscellaneous Notes Telephone Encounter - Nicolle Mondragon - 08/12/2011 1329 EDT Per Nelda CPT's [id number], DOS 08/13/11 , 23 hr stay, Do not req prior auth, CPT-08257 does, LMVMfor jesse John, that no auth started yet documented in this encounter Plan of Treatment Upcoming Encounters Date Type Specialty Care Team Description 12/16/2021 Appointment Infusion Therapy 04/15/2022 Office Visit Hematology and Oncology Poppy Felton, PA-C 111 [facility], [facility] 2 [place], [place] [phone] (Wo rk) 05/30/2022 Office Visit Surgical Oncology Asa Cameron MD 111 [facility] 2 [place], [place] [phone] (Wo rk) documented as of this encounter Visit Diagnoses Not on filedocumented in this encounter Care Teams Ui Developer With Angular Js Relationship Specialty Start Date End Date Evert Perdomo MD PCP - General 10/13/08 05/13/[address] [address] documented as of this encounter
--- OUTSIDE RECORDS SUMMARY | 2021-11-29 00:32 | XMS_ITS | Encounter Summary ---
:1970 Author Organization [facility] Address [address] [place] [address] Care Team Providers Name Role Phone Evert Perdomo MD Primary Care Provider Reason for Visit Reason Comments Mood Disorder Encounter Details Date Type Department Care Team Description 09/23/2010 Office Visit [facility] Nito Xiao, Uns pecified episodic Psychiatry - S mood disorder [address] (Primary Dx) [address] [place] [address] [place], [place] [address] (Wo rk) Social History Tobacco [...] Visit Hematology and Oncology Poppy Felton PA-C [address] [place] [phone] (Wo rk) 05/30/2022 Office Visit Surgical Oncology Asa Cameron MD [address] [phone] (Wo rk) documented as of this encounter Visit Diagnoses Diagnosis Unspecified episodic mood disorder - [facility] documented in this encounter Care Teams Climatologist Relationship Specialty Start Date End Date Evert Perdomo MD PCP - General 10/13/08 05/13/[address] [phone] documented as of this encounter
--- OUTSIDE RECORDS SUMMARY | 2021-11-29 00:32 | XMS_ITS | Encounter Summary ---
:[address] [facility] Address [address] [place] [address] Care Team Providers Name Role Phone Evert Perdomo MD Primary Care Provider Encounter Details Date Type Department Care Team Description 07/28/2011 Results Only Imaging [facility] Evert Perdomo, Adult Primary Care - [address] [phone] (Wo rk) Social History Tobacco Use Types [...] Hematology and Oncology Poppy Felton PA-C 111 [facility], [facility] 2 [place] [phone] (Wo rk) 05/30/2022 Office Visit Surgical Oncology Asa Cameron MD 111 [facility], [facility] 2 [place] [phone] (Wo rk) documented as of this encounter Procedures Procedure Name Priority Date/Time Associated Diagnosis Comme nts RAD US CHETAN BREAST 07/30/2011 11:55 Resul ts for this BILATERAL - TWO EDT procedure ar e in BREASTS the results section. documented in this encounter Results RAD US CHETAN BREAST BILATERAL - TWO BREASTS (07/30/2011 11:55 EDT) Anatomical Region Laterality Modality Other Specimen Narrative [facility] - 07/30/2011 12:13 EDT [facility]ER[facility]D DX YOLANDA ??EMERGENCY 2 BREAST AND BILATERAL BREAST ULTRASOUNDS ??Jul 30, 2011 09:11:00 AM Signs and Symptoms/Comments: < 611.72-GARCÍA MP OR MASS IN [id number]-CM R breast firm area 4-5:00 > This is the patient's baseline mammogram . Right breast findings: Digital diagnosti c views of the right breast were obtained in standard projections. A triangle shaped marker was placed over the area of palpable concern in the 2 to 3:00 region. The standard views are supplemented with spo t compression magnification views of this site. The breast tissue is heterogeneously dense, limiting interpretation. There is no dom inant mass or suspicious calcification. There is some vague nodul arity in the region on the additional views although this is diffic ult to elucidate a definite mass, separately from other breast tissu e. There are no associated microcalcifications. Sonography of the entire right breast wa s performed with particular attention to the palpable region. Corres ponding to a relatively large vague region of palpable concern, there are hypoechoic masses/hypoechoic irregular tissue. This begins at superiorly at 2 to 230, 3.5 cm from the nipple with a somew hat partially discrete mass measuring 6 x 6 mm. This appears somewha t contiguous, however with a larger region at 3:00, 3.5 cm from the n ipple measuring 13 x 6 x 21 mm. The entire region has increased flow on Doppler evaluation. Two suspected satellite nodules are noted; t he first at 230, 4.5 cm from the nipple measuring 3 x 2 mm and separa mervat from the main mass by 11 mm, and the second at 2:30 to 3:00, 5 cm from the nipple measuring 3 x 2 x 3 mm. There are no findings at 4 t o 5:00. Elsewhere within the right breast, a benign appearing fibrocy stic nodule is noted at 11:00, 3 cm from the nipple; not viewed with concern. There are no additional findings elsewhere in the rig ht breast. Lymph nodes in the right axilla appear normal. Left breast findings: Digital diagnostic views of the left breast were obtained in standard projections. T he breast tissue is heterogeneously dense, limiting interpre tation. On the standard views, a questionable 7 mm mass was note d anteriorly at approximately 9:00. Additional views of this region we re subsequently obtained demonstrating a possible persistent 5 mm mass at this site; although although evaluation is difficult given t he dense breast tissue in the region. Because of this finding, as well as the suspicious finding in the right breast, sonography of the left breast was requested. Sonography of the entire left breast was performed including particular attention given to the area o f questionable mass at 9:00 on the mammogram. No findings in the lef t breast identified. Lymph nodes in the left axilla appear normal. Impression right breast: Suspicious mass in the region of palpable concern. In particular, this region is q uite irregular and difficult to measure. BI-RADS category 4C. Ultraso und guided core biopsy is recommended. Note: Given the irregularit y and difficulty with measuring this lesion, as well as in ass essing extent of disease given the suspected satellite nodules, s hould this biopsy turning sander tender to be malignant, further preoperative evalu ation with MRI would be recommended if breast conservation is co ntemplated. Impression left breast: Negative, BI-RAD S category one. Annual screening mammography recommended. This examination was interpreted with th e aid of computer-assisted detection (CAD) technology. Results and recommendations were discussed with the patient by the radiol ogist at the time of the exam. The patient has been scheduled for an ultrasound guided core biopsy to be performed later today. A se bob report will be issued. Her physician's office will be informed. Overall assessment: BI-RADS Category Ass essment 4: Suspicious. The patient will be notified of her/his breast imaging results via a lay letter from radiology. Radiology ester naylor contact the patient directly regarding any findings which re quire additional imaging (Category 0) at this time. Procedure Note 07/30/2011 [facility] DX [facility] EMERGENCY 2 BREAST AND BILATE RAL BREAST ULTRASOUNDS Jul 30, 2011 09:11:00 AM Signs and Symptoms/Comments: < 611.72-GARCÍA MP OR MASS IN [id number]-CM R breast firm area 4-5:00 > This is the patient's baseline mammogram . Right breast findings: Digital diagnosti c views of the right breast were obtained in standard projections. A triangle shaped marker was placed over the area of palpable concern in the 2 to 3:00 region. The standard views are supplemented with spo t compression magnification views of this site. The breast tissue is heterogeneously dense, limiting interpretation. There is no dom inant mass or suspicious calcification. There is some vague nodul arity in the region on the additional views although this is diffic ult to elucidate a definite mass, separately from other breast tissu e. There are no associated microcalcifications. Sonography of the entire right breast wa s performed with particular attention to the palpable region. Corres ponding to a relatively large vague region of palpable concern, there are hypoechoic masses/hypoechoic irregular tissue. This begins at superiorly at 2 to 230, 3.5 cm from the nipple with a somew hat partially discrete mass measuring 6 x 6 mm. This appears somewha t contiguous, however with a larger region at 3:00, 3.5 cm from the n ipple measuring 13 x 6 x 21 mm. The entire region has increased flow on Doppler evaluation. Two suspected satellite nodules are noted; t he first at 230, 4.5 cm from the nipple measuring 3 x 2 mm and separa mervat from the main mass by 11 mm, and the second at 2:30 to 3:00, 5 cm from the nipple measuring 3 x 2 x 3 mm. There are no findings at 4 t o 5:00. Elsewhere within the right breast, a benign appearing fibrocy stic nodule is noted at 11:00, 3 cm from the nipple; not viewed with concern. There are no additional findings elsewhere in the rig ht breast. Lymph nodes in the right axilla appear normal. Left breast findings: Digital diagnostic views of the left breast were obtained in standard projections. T he breast tissue is heterogeneously dense, limiting interpre tation. On the standard views, a questionable 7 mm mass was note d anteriorly at approximately 9:00. Additional views of this region we re subsequently obtained demonstrating a possible persistent 5 mm mass at this site; although although evaluation is difficult given t he dense breast tissue in the region. Because of this finding, as well as the suspicious finding in the right breast, sonography of the left breast was requested. Sonography of the entire left breast was performed including particular attention given to the area o f questionable mass at 9:00 on the mammogram. No findings in the lef t breast identified. Lymph nodes in the left axilla appear normal. Impression right breast: Suspicious mass in the region of palpable concern. In particular, this region is q uite irregular and difficult to measure. BI-RADS category 4C. Ultraso und guided core biopsy is recommended. Note: Given the irregularit y and difficulty with measuring this lesion, as well as in ass essing extent of disease given the suspected satellite nodules, s hould this biopsy turning sander tender to be malignant, further preoperative evalu ation with MRI would be recommended if breast conservation is co ntemplated. Impression left breast: Negative, BI-RAD S category one. Annual screening mammography recommended. This examination was interpreted with th e aid of computer-assisted detection (CAD) technology. Results and recommendations were discussed with the patient by the radiol ogist at the time of the exam. The patient has been scheduled for an ultrasound guided core biopsy to be performed later today. A se bob report will be issued. Her physician's office will be informed. Overall assessment: BI-RADS Category Ass essment 4: Suspicious. The patient will be notified of her/his breast imaging results via a lay letter from radiology. Radiology ester l contact the patient directly regarding any findings which re quire additional imaging (Category 0) at this time. Performing Organization Address City/State/ZIP Code Phon e Number [facility]Y [facility] RADIOLOG[facility] documented in this encounter Visit Diagnoses Not on filedocumented in this encounter Care Teams Railroad Track Inspector Relationship Specialty Start Date End Date Evert Perdomo MD PCP - General 10/13/08 05/13/[address] [address] documented as of this encounter
--- OUTSIDE RECORDS SUMMARY | 2021-11-29 00:32 | XMS_ITS | Encounter Summary ---
:1970 Author Organization [facility] Address [address] [place] [address] Care Team Providers Name Role Phone Evert Perdomo MD Primary Care Provider Reason for Visit Reason Onset Date Comments Pre-op Exam 08/11/2011 preop medications Encounter Details Date Type Department Care Team Description 08/11/2011 Pre-Procedure Orders [facility] Asa Cameron MD Encounter Surgical Oncology - [address] [place] [address], [address], [address] 2 [place], [place] [address] [place] [address] [phone] (Wo rk) Social History Tobacco Use [...] Hematology and Oncology Poppy Felton, PAChuyC 111 [facility], [facility] 2 [place], [place] [phone] (Wo rk) 05/30/2022 Office Visit Surgical Oncology Asa Cameron MD 111 [facility], [facility] 2 [place], [place] [phone] (Wo rk) documented as of this encounter Visit Diagnoses Not on filedocumented in this encounter Care Teams Fire Prevention Engineer Relationship Specialty Start Date End Date Evert Perdomo MD PCP - General 10/13/08 05/13/[address] [place] [phone] documented as of this encounter
--- OUTSIDE RECORDS SUMMARY | 2021-11-29 00:32 | XMS_ITS | Encounter Summary ---
:1970 Author Organization [facility] Address [address] [place] [address] Care Team Providers Name Role Phone Evert Perdomo MD Primary Care Provider Encounter Details Date Type Department Care Team Description 08/04/2011 Documentation Visit [facility] Marisa Calyton , Hematology & Oncology - PhD Main [place] [address] [place] [address] Social History Tobacco Use Types Packs/Day [...] documented as of this encounter Progress Notes Marisa Clayton, PhD - 08/04/2011 1140 EDT Met Jia and her in today's Breast Cancer Multidisciplinary Clinic. Presented information regarding Cancer Patient Support program support services. Will provide follow-up as needed. Marisa Clayton, PhD, Licensed Psychologist-Doctorate documented in this encounter Plan of Treatment Upcoming Encounters Date Type Specialty Care Team Description 12/16/2021 Appointment Infusion Therapy 04/15/2022 Office Visit Hematology and Oncology Poppy Felton, PAChuyC [address] [phone] (Wo rk) 05/30/2022 Office Visit Surgical Oncology Asa Cameron MD [address] [phone] (Wo rk) documented as of this encounter Visit Diagnoses Not on filedocumented in this encounter Care Teams Manager Service Desk Relationship Specialty Start Date End Date Evert Perdomo MD PCP - General 10/13/08 05/13/[address] [address] documented as of this encounter
--- OUTSIDE RECORDS SUMMARY | 2021-11-29 00:32 | XMS_ITS | Encounter Summary ---
:1970 Author Organization [facility] Address [address] [place] [address] Care Team Providers Name Role Phone Evert Perdomo MD Primary Care Provider Reason for Visit Reason Onset Date Comments Other 11/04/2010 problem with insuran ce Encounter Details Date Type Department Care Team Description 11/04/2010 Telephone [facility] Nito Xiao, [facility] er (problem with Psychiatry - S MD insurance) [address] [address] [facility] [place] [address] (Wo rk) Social History Tobacco [...] Hematology and Oncology Poppy Felton PAChuyC 111 [facility] 2 [place] [phone] (Wo rk) 05/30/2022 Office Visit Surgical Oncology Asa Cameron MD [address] [phone] (Wo rk) documented as of this encounter Visit Diagnoses Not on filedocumented in this encounter Care Teams Bi Tri Operator Relationship Specialty Start Date End Date Evert Perdomo MD PCP - General 10/13/08 05/13/[address] [phone] documented as of this encounter
--- OUTSIDE RECORDS SUMMARY | 2021-11-29 00:32 | XMS_ITS | Encounter Summary ---
:1970 Author Organization [facility] Address [address] [place] [address] Care Team Providers Name Role Phone Evert Perdomo MD Primary Care Provider Reason for Visit Reason Comments New Patient Visit Encounter Details Date Type Department Care Team Description 08/04/2011 Office Visit [facility] Asa Cameron MD Breast cancer Surgical Oncology - [address] [place] [address] ([facility]) (Primary [facility] [address]) [address] [place] [address] [place], [place] [address] (Wo rk) Social History Tobacco [...] Sign Reading Time Taken Comments Blood Pressure 112/67 08/04/2011912 EDT Pulse 68 08/04/2011912 EDT Temperature 37.1 ??C (98.8 ??F) 08/04/2011912 EDT Respiratory Rate 15 08/04/2011912 EDT Oxygen Saturation - - Inhaled Oxygen Concentration - - Weight 61.2 kg (135 lb) 08/04/2011912 EDT Height 168.9 cm (5' 6.5) 08/04/2011912 EDT Body Mass Index 21.47 08/04/2011912 EDT documented in this encounter Discharge Disposition Disposition Code Departure Means Destination Auto Discharge documented in this encounter Progress Notes Asa Cameron MD - 08/04/2011 1341 EDT This office note has been dictated. documented in this encounter Procedure Notes CHEF BROILER OR FRY, SCAN 2 - 12/04/2011 0229 EDTAssociated Order(s): ORDERS - SCANNED documented in this encounter Consult Notes Asa Cameron MD - 08/06/2011 0821 EDT DIVISION OF SURGICAL ONCOLOGY - [facility] CONSULTATION - 08/04/2011 PROBLEM: The patient is seen for evaluation of newly diagnosed breast cancer of the right breast. SUBJECTIVE: The patient is a 41-year-old woman who noticed a palpable lump in her right breast abouta month ago. She saw her primary doctor who then got mammogram and ultrasound, which showed a suspicious lesion, which was biopsied. This shows an invasive ductal cancer. The patient is seen here for evaluation and recommendations for further management. The patient denies any pain or discomfort in the area. Denies any discharge from the breast. She has no history of other breast lumps in the past. PAST MEDICAL HISTORY: She denies any other significant medical problems. She does have a history of some depression. CURRENT MEDICATIONS: Concerta 27 mg a day. Trazodone 75 mg a day. Wellbutrin 300 mg a day. Fish oil. ALLERGIES: She has no known drug allergies. PAST SURGICAL HISTORY: Has had no previous surgeries. HABITS: The patient does not smoke. She drinks only occasionally. GYNECOLOGIC HISTORY: She is . Age at first delivery 29. Age at first menstrual period is 14. She is premenopausal. The patient had been on oral control pills but has stopped those recently. The patient also gives a history of having a heart murmur, question of whether this was mitral valveprolapse on an echo in the past, but there has not been on any precautions because of that. The patient currently is employed, , lives with her , has 2 children ages 10 and 11. REVIEW OF SYSTEMS: She denies fevers, chills, night sweats or fatigue. Denies appetite change, eyes,ears, nose, mouth or throat problems. Denies chest pain, pressure, shortness of breath, nausea, vomiting, GI, , musculoskeletal, thyroid, diabetes, blood clotting or bleeding problems. FAMILY HISTORY: Brother had thyroid cancer at age 25. A paternal cousin had melanoma at age 40. Maternal grandmother had breast cancer at age 46. No other cancer noted in the family. OBJECTIVE: On exam, the patient is a well-appearing woman in no acute distress. She has no scleral icterus. She has no palpable neck masses. There is no cervical or supraclavicular lymphadenopathy. There are no thyroid nodules, carotid bruits, or JVD. Lungs are clear to auscultation. Heart has a regular rate and rhythm without S3, S4, or murmurs. Breast exam reveals somewhat small breasts bilaterally. There are no skin changes or nipple retraction on either side. Palpation of the right breast reveals some nodular areas at about the 2:30 to 3 o'clock location a centimeter or two from the areolar margin. This is not fixed to the skin or the underlying muscle. There are no other discrete palpable abnormalities in the right breast. There is no nipple discharge. There are no palpable lymph nodes in the right axilla. Left breast has no distinct palpable abnormalities. There is no nipple discharge. There are no palpable lymph nodes in the left axilla. There are no abdominal masses, no abdominal tenderness, no hepato- or splenomegaly is noted. She has good range of motion of the upper extremities without lymphedema. DIAGNOSTIC DATA: Ultrasound of the right breast demonstrates the area that was biopsied to be multiple areas of hypoechoic glandular tissue. On my exam the maximum distance of the area is about 2.6 cm.In radiology there appeared to be separate areas with some small satellite lesions, which are seen on ultrasound here as well. It appears that the entire area was a similar size in radiology as well. The remaining breast tissue on the right has no other architectural changes. There are no other solid or cystic abnormalities on the right. There are no abnormal-appearing lymph nodes in the internal mammary or axillary region on the right. Left breast was then examined. No architectural changes, no solid or cystic abnormalities on the left. No abnormal-appearing lymph nodes are seen in the left axilla. ASSESSMENT AND PLAN: The patient is a 41-year-old woman with a clinical T1c or T2 breast cancer of the right breast. She is clinically node negative. Given the size and location of this tumor in relationship to the size of the breast the patient would be a marginal candidate for breast-conserving therapy. We could certainly give that a try. This would involve removing a significant portion of the upper-inner and lower-inner aspect of the breast and is quite likely would have some postoperative asymmetry in that area. The other option would be to do a mastectomy with or without reconstruction. The patient would also be a candidate for sentinel lymph node biopsy and axillary dissection only if the se ntinel nodes came back positive for metastatic disease. Given the fact that this appears to be satellite lesions, the amount of tissue that would need to removed would not necessarily be any different with preoperative chemotherapy to try to reduce the size of the area that could be excised. The patient is also concerned given her young age and family history of having a potential inherited risk and is seriously considering having prophylactic mastectomy on the left as well as a mastectomy on the right. The patient would like to have a discussion with plastic surgery in regards to options for reconstruction. Her tumor was somewhat high nuclear grade on the biopsy and there were some areas that were suspicious for lymphovascular invasion. It is therefore possible that she may need postmastectomy radiation if she goes for a total mastectomy, which could have an impact on her reconstructive optionsas well. At this point, the plan is to have her be seen by plastic surgery for evaluation; however, the patient is strongly leaning at this point towards bilateral mastectomies with sentinel lymph node biopsy on the right. The patient will be meeting with medical oncology and radiation oncology today as well to discuss those options as well. Electronically Signed by Asa Cameron MD 08/06/2011 16:58 Asa Cameron MD - Asa Cameron MD - Job ID: SM Doc ID: [id number] Ext Doc ID: [id number] cc: MD Cristina Ames MD Mark A Levine, MD documented in this encounter Plan of Treatment Upcoming Encounters Date Type Specialty Care Team Description 12/16/2021 Appointment Infusion Therapy 04/15/2022 Office Visit Hematology and Oncology Poppy Felton PA-C [address] [phone] (Wo rk) 05/30/2022 Office Visit Surgical Oncology Asa Cameron MD [address] [phone] (Wo rk) documented as of this encounter Procedures Procedure Name Priority Date/Time Associated Diagnosis Comme nts ORDERS - SCANNED 12/04/2011 2:29 EDT Resu lts for this procedure are i n the results section. documented in this encounter Results ORDERS - SCANNED (12/04/2011 2:29 EDT) Specimen Narrative 12/04/2011 3:31 EDT Procedure Note CHEF BROILER OR FRY, SCAN 2 - 12/04/2011 2:29 EDT documented in this encounter Visit Diagnoses Diagnosis Breast cancer (HCC-CMS) (HCC) - Primary Malignant neoplasm of breast (female), u nspecified site documented in this encounter Historical Medications This list may reflect changes made after this encounter. Medication Sig Dispensed Refills Start Date End Date NORETH A-ET ESTRA/FE Take by mouth 0 0 08/11/2011 FUMARATE (LOESTRIN 24 FE daily. ORAL) methylphenidate (CONCERTA) Take 27 mg by 0 09/10/2011 27 mg CR tablet mouth daily. added in this encounter Care Teams Community Affairs Manager Relationship Specialty Start Date End Date Evert Perdomo MD PCP - General 10/13/08 05/13/[address] [place] [address] documented as of this encounter
--- OUTSIDE RECORDS SUMMARY | 2021-11-29 00:32 | XMS_ITS | Encounter Summary ---
:1970 Author Organization [facility] Address [address] [place] [address] Care Team Providers Name Role Phone Evert Perdomo MD Primary Care Provider Encounter Details Date Type Department Care Team Description 08/04/2011 Documentation Visit [facility] Unknown, Provider, [facility] - Jessi Pleitez MD PhD [address] [place] [address] [address] [place] [address] [facility] Nurse, [facility] [address] [place], [place] [phone] Social History Tobacco Use Types Packs/Day Years [...] Poppy Felton PA-C 111 [facility] 2 [place], [place] [phone] (Wo rk) 05/30/2022 Office Visit Surgical Oncology Asa Cameron MD 111 [facility], [facility] 2 [place], [place] [phone] (Wo rk) documented as of this encounter Visit Diagnoses Not on filedocumented in this encounter Care Teams Manager Customs Relationship Specialty Start Date End Date Evert Perdomo MD PCP - General 10/13/08 05/13/[address] [phone] documented as of this encounter
--- OUTSIDE RECORDS SUMMARY | 2021-11-29 00:32 | XMS_ITS | Encounter Summary ---
:1970 Author Organization [facility] Address [address] [place] [address] Care Team Providers Name Role Phone Evert Perdomo MD Primary Care Provider Reason for Referral Consult (Routine/Next Available) - Closed Specialty Diagnoses / Procedures Referred By Contact Refer red To Contact Surgical Oncology Diagnoses Breast CA ([facility]) ([facility]) Evert Perdomo MD 2 Surg-Oncology [address] [address] Referral ID Status Reason Start Date Expiration Date Visits V isits Requested Authorized [id number] Closed Specialty 08/01/2011 1 1 Services Required Question Answer Reason for Request: new dx breast ca Reason for Visit Reason Onset Date Comments Other 07/30/2011 Encounter Details Date Type Department Care Team Description 07/30/2011 Telephone [facility] Adult Evert Perdomo MD Other Primary Care - [place] [address] [place] [address] [phone] (Wo rk) Social History Tobacco Use Types [...] Notes Telephone Encounter - Cristiane Bautista - 08/04/2011 1056 EDT Cheyenne @ [facility] aware that referral has been done. elephone Encounter - Cristiane Bautista - 08/01/2011 1412 EDT Spoke w/Cheyenne Wagner at the [facility], she would like to have the referral in [facility] for documentation purposes. elephone Encounter - Evert Perdomo MD - 08/01/2011 1204 EDT Appt is already scheduled for 3 different consultants, so looks like I don't need to do anything. elephone Encounter - Cristiane Bautista - 08/01/2011 1159 EDT Are you going to do the referral for a breast surgeon? elephone Encounter - Evert Perdomo MD - 08/01/2011 1157 EDT Spoke with patient. elephone Encounter - Cristiane Bautista - 08/01/2011 1024 EDT Pt called this morning, said the biopsy came back positive for breast CA. She said the Pathologist who read the results is a personal friend of hers so she found out the results quickly. Cheyenne at the [facility] needs a referral to a breast surgeon for this pt. Fax it to Cheyenne [phone]. The pt would like you to call her. elephone Encounter - Kristina Gottlieb - 07/30/2011 1158 EDT Having a Right breast biopsy today at [facility]. documented in this encounter Plan of Treatment Upcoming Encounters Date Type Specialty Care Team Description 12/16/2021 Appointment Infusion Therapy 04/15/2022 Office Visit Hematology and Oncology Poppy Fleton, PAChuyC 111 [facility] 2 [place], [place] [phone] (Wo rk) 05/30/2022 Office Visit Surgical Oncology Asa Cameron MD 111 [facility] 2 [place], [place] [phone] (Wo rk) Scheduled Referrals Name Type Priority Associated Diagnoses Order S chedule AMB CONSULT Outpatient Referral Routine Breast ca (CMS-HCC) O rdered: SURGICAL ONCOLOGY 08/01/2011 documented as of this encounter Visit Diagnoses Diagnosis Breast CA (HCC-CMS) (HCC) - Primary Malignant neoplasm of breast (female), u nspecified site documented in this encounter Care Teams Cardiopulmonary Supervisor Relationship Specialty Start Date End Date Evert Perdomo MD PCP - General 10/13/08 05/13/[address] [address] documented as of this encounter
--- OUTSIDE RECORDS SUMMARY | 2021-11-29 00:32 | XMS_ITS | Encounter Summary ---
:1970 Author Organization [facility] Address [address] [place] [address] Care Team Providers Name Role Phone Evert Perdomo MD Primary Care Provider Encounter Details Date Type Department Care Team Description 07/30/2011 Hospital Encounter [facility] [address] [place] [address] [address] [place] [address] (Wo bradford) Social History Tobacco Use Types Packs/Day Years [...] 09/22/2011 300 mg XL tablet mouth daily. clonAZEPAM (KLONOPIN) 0.5 mg Take 1 Tab by 6 Tab 0 05/2408/11/2011 tablet mouth 2 times daily as needed. LEVONORGESTREL-ETH ESTRA Take by mouth. 0 08/11/2011 (AVIANE ORAL) lisdexamfetamine (VYVANSE) Take 1 Cap by 28 Cap 0 201109/29/2011 30 mg capsule mouth daily. Bunn-3 Fatty Acids-Vitamin Take by mouth. 0 09/10/2011 E (FISH OIL) 1,000 mg Cap trazodone (DESYREL) 50 mg Take 1.5 Tabs by 135 Tab 1 02/2411/11/2011 tablet mouth at bedtime. [id number] by mouth. documented as of this encounter Discharge Disposition Disposition Code Departure Means Destination Auto Discharge Home documented in this encounter Miscellaneous Notes Scanned Note-Null - [facility], SCAN 2 - 08/07/2011 0720 EDT documented in this encounter Plan of Treatment Upcoming Encounters Date Type Specialty Care Team Description 12/16/2021 Appointment Infusion Therapy 04/15/2022 Office Visit Hematology and Oncology Poppy Felton PA-C 111 [facility], [facility] [address] [place] [phone] (Larissa felder) 05/30/2022 Office Visit Surgical Oncology Asa Cameron MD 111 [facility], [facility] 2 [place] [phone] (Larissa rk) documented as of this encounter Procedures Procedure Name Priority Date/Time Associated Comments Diagnosis ANA MARIA DUARTE DIAG DIGITAL 07/30/2011 13:31 Resu lts for this UNILATERAL ADDED EDT procedure a re in VIEWS the results section. RAD US BREAST BIOPSY 07/30/2011 13:22 Res ults for this EDT procedure are i n the results section. documented in this encounter Results ANA MARIA DIXON DIGITAL UNILATERAL ADDED VIEWS (07/30/2011 13:31 EDT) Anatomical Region Laterality Modality Other Specimen Narrative [facility] RADIOLOGY - 08/01/2011 8:37 EDT RIGHT BREAST ULTRASOUND GUIDED CORE BIOPSY WITH CLIP PLACEMENT AND POST PROCEDURE DIGITAL MAMMOGRAM AT NO A DDITIONAL CHARGE on 07/30/2011 History: The patient presented with a pa lpable mass in the right breast. An irregular mass was identified . Ultrasound guided core biopsy was requested. Procedure: Informed consent was obtained for ultrasound guided core biopsy and clip placement. The risks, be nefits and alternatives were discussed with the patient. Proper ident ity and site verification were obtained. The lesion at 3:00, 3.5 c m from the nipple was identified. The skin was marked. The ski n was prepped with Betadine and draped. 1% buffered lidocaine was us ed for local anesthesia. Using a 14-gauge Achieve core biopsy nee dle inserted through a 13-gauge introducer, 4 core specimens we re obtained through different parts of the lesion at 3:00, 3.5 cm from the nipple and including a portion of it at 2 to 230, 3.5 cm from t he nipple. A coil shaped HydroMark clip was then deployed in the area biopsied. Post procedure digital mammography was s ubsequently obtained in craniocaudal and ML projections demonstr ating the clip to correspond to the original finding of concern on th e mammogram as seen on the craniocaudal view. The patient tolerated the procedure well and experienced no immediate complications. Impression: Successful ultrasound guided core biopsy with documentation of mammographic sonographi c correlation. The patient was informed that she would be called wi results by a member of the radiology department in 3 to 5 working d ays. Addendum Begins This is an addendum to the right breast ultrasound guided core biopsy performed on 07/30/2011. Pathology from the right breast biopsy at 2 to 3:00, 3.5 cm from the nipple demonstr ates adenocarcinoma, ductal type, invasive, nuclear grade 2 with DCI S, cribriform pattern, focal necrosis, nuclear grade 2. There are foc i suspicious for lymphovascular invasion. This is a malig nant concordant diagnosis. As such, surgical referral for definitive t reatment will be needed. Given the dense breast pattern, irregula r amorphous size and extent of the tumor and strong suspicion of sat ellite lesions, if breast conservation is contemplated, further pr eoperative evaluation with MRI would be recommended. Dr. [place] Felton already has called the patient with the biopsy results and and followup recommendations. She will be seeing Dr. Cameron in the near [facility]. Addendum Ends Procedure Note 08/01/2011 RIGHT BREAST ULTRASOUND GUIDED CORE BIOP SY WITH CLIP PLACEMENT AND POST PROCEDURE DIGITAL MAMMOGRAM AT NO A DDITIONAL CHARGE on 07/30/2011 History: The patient presented with a pa lpable mass in the right breast. An irregular mass was identified . Ultrasound guided core biopsy was requested. Procedure: Informed consent was obtained for ultrasound guided core biopsy and clip placement. The risks, be nefits and alternatives were discussed with the patient. Proper ident ity and site verification were obtained. The lesion at 3:00, 3.5 c m from the nipple was identified. The skin was marked. The ski n was prepped with Betadine and draped. 1% buffered lidocaine was us ed for local anesthesia. Using a 14-gauge Achieve core biopsy nee dle inserted through a 13-gauge introducer, 4 core specimens we re obtained through different parts of the lesion at 3:00, 3.5 cm from the nipple and including a portion of it at 2 to 230, 3.5 cm from t he nipple. A coil shaped HydroMark clip was then deployed in the area biopsied. Post procedure digital mammography was s ubsequently obtained in craniocaudal and ML projections demonstr ating the clip to correspond to the original finding of concern on th e mammogram as seen on the craniocaudal view. The patient tolerated the procedure well and experienced no immediate complications. Impression: Successful ultrasound guided core biopsy with documentation of mammographic sonographi c correlation. The patient was informed that she would be called wi results by a member of the radiology department in 3 to 5 working d ays. Addendum Begins This is an addendum to the right breast ultrasound guided core biopsy performed on 07/30/2011. Pathology from the right breast biopsy at 2 to 3:00, 3.5 cm from the nipple demonstr ates adenocarcinoma, ductal type, invasive, nuclear grade 2 with DCI S, cribriform pattern, focal necrosis, nuclear grade 2. There are foc i suspicious for lymphovascular invasion. This is a malig nant concordant diagnosis. As such, surgical referral for definitive t reatment will be needed. Given the dense breast pattern, irregula r amorphous size and extent of the tumor and strong suspicion of sat ellite lesions, if breast conservation is contemplated, further pr eoperative evaluation with MRI would be recommended. Dr. [place] Felton already has called the patient with the biopsy results and and followup recommendations. She will be seeing Dr. Cameron in the near [facility]. Addendum Ends Performing Organization Address City/State/ZIP Code Phon e Number [facility] RAD[facility] RAD[facility] RAD US BREAST BIOPSY (07/30/2011 13:22 EDT) Anatomical Region Laterality Modality Other Specimen Narrative [facility] RADIOLOGY - 08/01/2011 8:37 EDT RIGHT BREAST ULTRASOUND GUIDED CORE BIOPSY WITH CLIP PLACEMENT AND POST PROCEDURE DIGITAL MAMMOGRAM AT NO A DDITIONAL CHARGE on 07/30/2011 History: The patient presented with a pa lpable mass in the right breast. An irregular mass was identified . Ultrasound guided core biopsy was requested. Procedure: Informed consent was obtained for ultrasound guided core biopsy and clip placement. The risks, be nefits and alternatives were discussed with the patient. Proper ident ity and site verification were obtained. The lesion at 3:00, 3.5 c m from the nipple was identified. The skin was marked. The ski n was prepped with Betadine and draped. 1% buffered lidocaine was us ed for local anesthesia. Using a 14-gauge Achieve core biopsy nee dle inserted through a 13-gauge introducer, 4 core specimens we re obtained through different parts of the lesion at 3:00, 3.5 cm from the nipple and including a portion of it at 2 to 230, 3.5 cm from t he nipple. A coil shaped HydroMark clip was then deployed in the area biopsied. Post procedure digital mammography was s ubsequently obtained in craniocaudal and ML projections demonstr ating the clip to correspond to the original finding of concern on th e mammogram as seen on the craniocaudal view. The patient tolerated the procedure well and experienced no immediate complications. Impression: Successful ultrasound guided core biopsy with documentation of mammographic sonographi c correlation. The patient was informed that she would be called wi th results by a member of the radiology department in 3 to 5 working d ays. Addendum Begins This is an addendum to the right breast ultrasound guided core biopsy performed on 07/30/2011. Pathology from the right breast biopsy at 2 to 3:00, 3.5 cm from the nipple demonstr ates adenocarcinoma, ductal type, invasive, nuclear grade 2 with DCI S, cribriform pattern, focal necrosis, nuclear grade 2. There are foc i suspicious for lymphovascular invasion. [facility] diagnosis. As such, surgical referral for definitive t reatment will be needed. Given the dense breast pattern, irregula r amorphous size and extent of the tumor and strong suspicion of sat ellite lesions, if breast conservation is contemplated, further pr eoperative evaluation with MRI would be recommended. Dr. [place] Felton already has called the patient with the biopsy results and and followup recommendations. She will be seeing Dr. Cameron in the near ture. Addendum Ends Procedure Note 08/01/2011 RIGHT BREAST ULTRASOUND GUIDED CORE BIOP SY WITH CLIP PLACEMENT AND POST PROCEDURE DIGITAL MAMMOGRAM AT NO A DDITIONAL CHARGE on 07/30/2011 History: The patient presented with a pa lpable mass in the right breast. An irregular mass was identified . Ultrasound guided core biopsy was requested. Procedure: Informed consent was obtained for ultrasound guided core biopsy and clip placement. The risks, be nefits and alternatives were discussed with the patient. Proper ident ity and site verification were obtained. The lesion at 3:00, 3.5 c m from the nipple was identified. The skin was marked. The ski n was prepped with Betadine and draped. 1% buffered lidocaine was us ed for local anesthesia. Using a 14-gauge Achieve core biopsy nee dle inserted through a 13-gauge introducer, 4 core specimens we re obtained through different parts of the lesion at 3:00, 3.5 cm from the nipple and including a portion of it at 2 to 230, 3.5 cm from t he nipple. A coil shaped HydroMark clip was then deployed in the area biopsied. Post procedure digital mammography was s ubsequently obtained in craniocaudal and ML projections demonstr ating the clip to correspond to the original finding of concern on th e mammogram as seen on the craniocaudal view. The patient tolerated the procedure well and experienced no immediate complications. Impression: Successful ultrasound guided core biopsy with documentation of mammographic sonographi c correlation. The patient was informed that she would be called wi th results by a member of the radiology department in 3 to 5 working d ays. Addendum Begins This is an addendum to the right breast ultrasound guided core biopsy performed on 07/30/2011. Pathology from the right breast biopsy at 2 to 3:00, 3.5 cm from the nipple demonstr ates adenocarcinoma, ductal type, invasive, nuclear grade 2 with DCI S, cribriform pattern, focal necrosis, nuclear grade 2. There are foc i suspicious for lymphovascular invasion. This is a malig nant concordant diagnosis. As such, surgical referral for definitive t reatment will be needed. Given the dense breast pattern, irregula r amorphous size and extent of the tumor and strong suspicion of sat ellite lesions, if breast conservation is contemplated, further pr eoperative evaluation with MRI would be recommended. Dr. [place] Felton already has called the patient with the biopsy results and and followup recommendations. She will be seeing Dr. Cameron in the near [facility]. Addendum Ends Performing Organization Address City/State/ZIP Code Phon e Number [facility] documented in this encounter Visit Diagnoses Not on filedocumented in this encounter Care Teams Delicatessen Slicer Relationship Specialty Start Date End Date Evert Perdomo MD PCP - General 10/13/08 05/13/[address] [place] [id number] documented as of this encounter
--- OUTSIDE RECORDS SUMMARY | 2021-11-29 00:32 | XMS_ITS | Encounter Summary ---
:1970 Author Organization [facility] Address [address] [place] [address] Care Team Providers Name Role Phone Evert Perdomo MD Primary Care Provider Encounter Details Date Type Department Care Team Description 08/04/2011 Documentation Visit [facility] Agusto Martin ra Hematology & Oncology - Main [address] [address] Social History Tobacco Use Types [...] this encounter Progress Notes Sharmila Martin - 08/04/2011 1146 EDT Child life services introduced to Jai and her , Kareem, during today's Breast MDCGiovani Ro has two children, a 12 year old son and a 10 year old daughter. Contact information was provided, will continue to be available as needed. -SHAYY Santiago Pager # [phone] documented in this encounter Plan of Treatment Upcoming Encounters Date Type Specialty Care Team Description 12/16/2021 Appointment Infusion Therapy 04/15/2022 Office Visit Hematology and Oncology Poppy Felton PA-C [address] [phone] (Wo rk) 05/30/2022 Office Visit Surgical Oncology Asa Cameron MD [address] [phone] (Wo rk) documented as of this encounter Visit Diagnoses Not on filedocumented in this encounter Care Teams Construction Laborer Relationship Specialty Start Date End Date Evert Perdomo MD PCP - General 10/13/08 05/13/[address] [phone] documented as of this encounter
--- OUTSIDE RECORDS SUMMARY | 2021-11-29 00:32 | XMS_ITS | Encounter Summary ---
:1970 Author Organization [facility] Address [address] [place] [address] Care Team Providers Name Role Phone Evert Perdomo MD Primary Care Provider Reason for Visit Reason Comments Follow-up no labs, no meds changes Medication Management Encounter Details Date Type Department Care Team Description 08/15/2010 Office Visit [facility] Evert Perdomo; Adult Primary Care - [place] Teo ADHD (attention deficit hyperactivity di sorder) [address] [phone] Social History Tobacco Use Types Packs/Day [...] Sign Reading Time Taken Comments Blood Pressure 90/58 08/15/2010 1031 EDT Pulse 64 08/15/2010 1031 EDT Temperature - - Respiratory Rate 20 08/15/2010 1031 EDT Oxygen Saturation - - Inhaled Oxygen Concentration - - Weight 59 kg (130 lb) 08/15/2010 1031 EDT Height - - Body Mass Index 20.36 06/11/2010 1651 EDT documented in this encounter Progress Notes Evert Perdomo MD - 08/16/2010 1659 EDT Primary Care Internal Medicine [address] [place] [address] PROGRESS/FOLLOWUP NOTE - 08/15/2010 PROBLEM: Depression. PROBLEM: ADHD. SUBJECTIVE: Jia presents today because she is concerned about mood instability. She has had a 3-year history of struggles with depression. However, this has been reasonably well controlled on her therapy, which includes Wellbutrin; she continues to use Concerta for ADHD and rare clonazepam. She uses trazodone for sleep. Lately she has been concerned about mood instability. There are times she feels very down on herself as if she is a bad person, but certainly not the way she feels when she is generally depressed. Then, there may be days when she is elated. There was a 10-day period recently where she felt incredibly creative, did not feel the need to sleep, felt accomplished and good about herself. She recognizes this is somewhat hypomanic but did not feel that she was doing unusual things in terms of grandiosity or major wild purchases or other activities. She continues to see her therapist every 1 to 2 weeks and has an upcoming appointment with Dr Xiao in psychiatry in 1 month. She relates her family history of thyroid disease with a mother who was on thyroid replacement and a brotherwho has had thyroid cancer at an early age and wonders if there is a medical etiology for any of hercurrent symptoms. She continues to exercise, though this also parallels somewhat her mood. 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 OBJECTIVE: Seated in no distress. Weight 130 and she notes she has lost 15 pounds gradually over time, though is eating well, but does not have as quite as good an appetite. Pulse 64, blood pressure 90/58. She looks well and looks well nourished. She is not tremulous. Reflexes are all normal, without delayed relaxation phase. Neck without thyromegaly or lymphadenopathy. EOMs normal. Lungs clear. Heart regular. Abdomen benign. Extremities: No edema, good pulses, no excessive diaphoresis. ASSESSMENT: I do not find a significant medical disorder that will explain the patient's symptoms and doubt she will be found to have a true hypo or hyperthyroid state. Nonetheless, it is important to rule out metabolic factors. She is on a number of medications, some depressants and some stimulants, though her symptoms do not seem to parallel use of these and in fact she uses most of them with the exception of Klonopin on a regular basis. She is aware that some of her symptoms would be considered to be on the continuum of bipolar disorder, though certainly not to the extremes of depression and shayy that characterize that disorder. PLAN: A. We will check CBC, thyroid profile, CMP. I agreed heartily with the upcoming visit with Dr Xiao to help sort out the bipolar aspect of the case and the current medications the patient is using. B. No changes were made in medication today, but supportive counseling provided. Electronically Signed by Evert Perdomo MD 08/16/2010 16:59 Evert Perdomo MD - Evert Perdomo MD - Job ID: SM Doc ID: [id number] [facility] Doc ID: [id number] cc: Evert Mora MD - 08/15/2010 1057 EDT This office note has been dictated. documented in this encounter Plan of Treatment Upcoming Encounters Date Type Specialty Care Team Description 12/16/2021 Appointment Infusion Therapy 04/15/2022 Office Visit Hematology and Oncology Poppy Felton PA-C 111 [facility], [facility] [address] [place], [place] [phone] (Wo rk) 05/30/2022 Office Visit Surgical Oncology Asa Cameron MD 111 [facility], [facility] [address] [place] [phone] (Wo rk) documented as of this encounter Results (ABNORMAL) COMPREHENSIVE METABOLIC PANEL (CMP) (08/28/2010 9:43 EDT) [facility] Potassium 4.3 3.5 - 5.0 mEq/L [facility] Sodium 139 136 - 145 mEq/L [facility] Chloride 105 96 - 110 mEq/L [facility] CO2 28 24 - 32 mEq/L [facility] Total Alkaline 39 38 - 126 U/L [facility] Phosphatase Bilirubin, Total 0.5 0.2 - 1.3 mg/dl [facility] AST 19 15 - 46 U/L [facility] ALT 19 9 - 52 U/L [facility] Albumin 3.9 3.4 - 4.9 g/dl [facility] Total Protein 6.4 (L) 6.5 - 8.3 g/dl [facility] Creatinine 1.04 0.7 - 1.5 mg/dl [facility] GFR, Calculated 59 ml/min/1.73m2 [facility] BUN 17 10 - 26 mg/dl [facility] Calcium 9.5 8.5 - 10.5 [facility] mg/dl Calculated Calcium 10.0 8.5 - 10.5 [facility] mg/dl Glucose, Serum 79 70 - 100 mg/dl [facility] Fasting? Yes [facility] Specimen Blood specimen (specimen) Performing Organization Address City/State/ZIP Code Phon e Number [facility] [address] [place] [address] SERVICES [facility] [address] [place] [address] THYROID CASCADE (08/28/2010 9:43 EDT) TSH 2.41 0.35 - 5.00 [facility] Comment: uIU/ml ??TSH cascade is not recommended for patients in [facility] h pituitary or hypothalamic disorders are suspected. Specimen Blood specimen (specimen) Performing Organization Address [facility] Code Phon e Number [facility] [address] [place] [address] SERVICES [facility] [address] [place] [address] HEMAGRAM (08/28/2010 9:43 EDT) Pathologist Sig nature WBC 4.66 4.0 - 12.4 K/cmm [facility] RBC 4.05 3.86 - 5.04 M/cmm [facility] Hemoglobin 12.8 11.6 - 15.2 gm/dl [facility] HCT 37.6 34.9 - 44.4 % [facility] MCV 93 81 - 98 fl [facility] MCH 31.6 26.7 - 33.3 pg [facility] MCHC 34.1 32.1 - 35.9 gm/dl [facility] PLT 222 141 - 320 K/cmm [facility] RDW-CV 13.7 11.7 - 14.6 % [facility] Specimen Blood specimen (specimen) Performing Organization Address [facility] Code Phon e Number [facility] [address] [place] [address] SERVICES [facility] [address] [place] [address] documented in this encounter Visit Diagnoses Diagnosis Depression Depressive disorder, not elsewhere class ified ADHD (attention deficit hyperactivity di sorder) Attention deficit disorder with hyperact ivity documented in this encounter Historical Medications This list may reflect changes made after this encounter. Medication Sig Dispensed Refills Start Date End Date methylphenidate (CONCERTA) Take 27 mg by 0 09/02/2010 27 mg CR tablet mouth daily. added in this encounter Care Teams Braddisher Relationship Specialty Start Date End Date Evert Perdomo MD PCP - General 10/13/08 05/13/16 [address] [place] [address] documented as of this encounter
--- OUTSIDE RECORDS SUMMARY | 2021-11-29 00:32 | XMS_ITS | Encounter Summary ---
:1970 Author Organization [facility] Address [address] [place] [address] Care Team Providers Name Role Phone Evert Perdomo MD Primary Care Provider Reason for Visit Reason Onset Date Comments Results 06/06/2010 Encounter Details Date Type Department Care Team Description 06/06/2010 Telephone [facility] Adult Nova Ochoa, Results Primary Care - [place] PA-C [address] [place] [id number] [place] [address] [phone] (Wo rk) Social History Tobacco Use Types Packs/Day Years Used Date Never Smoker Alcohol Use Standard Drinks/Week Comments No 0 [...] Telephone Encounter - Filomena Ochoa PA-C - 06/06/2010 1218 EDT Please inform pt that her GC/chlamydia testing is negative. Called pt. Informed of results. documented in this encounter Plan of Treatment Upcoming Encounters Date Type Specialty Care Team Description 12/16/2021 Appointment Infusion Therapy 04/15/2022 Office Visit Hematology and Oncology Poppy Felton PA-C 111 [facility] [place], [place] [phone] (Wo rk) 05/30/2022 Office Visit Surgical Oncology Asa Cameron MD 111 [facility], [facility] [address] [place] [phone] (Wo rk) documented as of this encounter Visit Diagnoses Not on filedocumented in this encounter Care Teams Surgery Scheduling Coordinator Relationship Specialty Start Date End Date Evert Perdomo MD PCP - General 10/13/08 05/13/[address] [phone] documented as of this encounter
--- OUTSIDE RECORDS SUMMARY | 2021-11-29 00:32 | XMS_ITS | Encounter Summary ---
:1970 Author Organization [facility] Address [address] [place] [address] Care Team Providers Name Role Phone Evert Perdomo MD Primary Care Provider Reason for Visit Reason Comments Breast Cancer Encounter Details Date Type Department Care Team Description 08/04/2011 Office Visit [facility] Jessi Pleitez MD Breas t cancer Hematology & PhD ([facility]) Oncology - [address] [place] [address] [address], [place] [address] (Wo rk) Social History Tobacco [...] encounter Progress Notes Jessi Pleitez MD - 08/04/2011 1257 EDT This office note has been dictated. documented in this encounter Consult Notes Jessi Pleitez MD - 08/06/2011 0415 EDT DIVISION OF HEMATOLOGY / ONCOLOGY CONSULTATION - 08/04/2011 REQUESTING PHYSICIAN: Evert Perdomo. REASON FOR REQUEST: Discussion of next steps in medical oncology management in a patient with newly identified invasive ductal carcinoma. HISTORY OF PRESENT ILLNESS: Obtained from review of patient medical record and patient interview. Ifeanyi is a 41-year-old female who noticed a palpable mass on her right breast in late June. This wasalso confirmed by her primary care provider on July 24. She went on to receive a diagnostic mammogram, which revealed a vague nodularity. The ultrasound identified a hypoechoic mass with irregular borders measuring approximately 2 cm in greatest dimension. The size was identified by Dr Cameron to be larger in clinic today. The axilla was clinically node negative and negative by ultrasound. She went on to receive an ultrasound-guided core biopsy. 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 There was one area suspicious for lymphovascular invasion, nuclear grade 2, estrogen-receptor positive greater than 90%, progesterone-receptor positive greater than 90%. Ms Dow is premenopausal. She has 2 children. Age at first menses was 14. Age at first delivery 29. She has had a maternal grandmother with breast cancer at age 46 and a brother who had thyroid cancer in his 20s. She has a background. PAST MEDICAL HISTORY: ADHD, anxiety. PAST SURGICAL HISTORY: None. ALLERGIES: None. MEDICATIONS: Concerta 27 mg daily. Trazodone 75 mg daily. Wellbutrin 300 mg daily. Fish oil irregularly. FAMILY HISTORY: Grandmother with breast cancer at age 46. Brother with thyroid cancer at age 20 and 1 maternal cousin with melanoma. SOCIAL HISTORY: The patient is , has 2 children, lives in the [facility] area. 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 She does not smoke, drinks alcohol on occasion, exercises regularly. REVIEW OF SYSTEMS: A detailed 10-point review of systems is obtained and documented on the symptom report form, which was discussed with the patient. Other than described in the subjective, she notes depression and anxiety symptoms. OBJECTIVE: Vital signs stable. ECOG performance status 0. General: The patient is comfortable, cooperative, in no apparent distress. HEENT: Pupils are equal, round and reactive to light. Extraocular muscles are intact. Oral mucosa is moist. No mucosal lesions are identified. No cervical or supraclavicular lymphadenopathy. Lungs are clear to auscultation bilaterally and resonant to percussion. Cardiovascular: Regular rate and rhythm, no murmurs, rubs or gallops. Abdomen: Positive bowel sounds, soft, nontender, nondistended, no hepatosplenomegaly appreciated. Extremities: No clubbing, cyanosis or edema. No calf tenderness. Neurologic: Alert and oriented x3 and grossly neurologically intact. ASSESSMENT: Ms Dow is a 41-year-old female with a newly identified invasive ductal carcinoma of the right breast. She presents to multidisciplinary clinic to discuss next steps in management. She met today with Dr Cameron and Dr Avitia. PLAN: 1. Next steps in oncology management. Ms Dow is considering bilateral total mastectomies. She will be set up with an appointment with Dr Nicolle Carson to discuss reconstruction options. She will then proceed on with surgery. 2. Antiestrogen therapy. Ms Dow's tumor is estrogen-receptor positive. As a result, she would benefit from antiestrogen therapy. She is premenopausal and as such, the only antiestrogen therapy option is tamoxifen. It was explained that at this point we would recommend 5 years of tamoxifen. It was also explained that the length of time that antiestrogen therapy is provided could change in the future based on ongoing studies. Ms Dow is currently on Wellbutrin. It was explained that Wellbutrin interferes with the metabolism of tamoxifen and she was encouraged to consider alternative antidepressants. She will discuss this with her primary care provider. Options for antidepressantswhile receivint tamoxifen would include Effexor and Celexa. Lexapro is also appropriate. 3. Chemotherapy. It is likely that Ms Dow will receive chemotherapy given her age and the suspicion for possible lymphovascular invasion. It was explained that the chemotherapy of choice would be based on the additional findings at the time of pathology, in particular lymph node status and HER-2 status. Currently, she is clinically lymph node negative. There is a small possibility that if there isnot lymphovascular invasion and that she is clinically node negative, that we could consider Oncotype DX testing. However, if the tumor is anything but well-differentiated we would not proceed with Oncotype DX testing. 4. Genetic counseling. Ms Dow is young. She also had a grandmother with breast cancer at age 46. She has been referred to [facility] to discuss options for genetic testing. The results of genetic testing would not make a difference in terms of her current selection of breast surgery. 5. Lifestyle factors. Ms Dow currently exercises regularly and has a normal weight. She was encouraged to continue to exercise. She also was encouraged to limit alcohol consumption to no more than 3alcoholic drinks a week. 6. We will plan to see Ms Dow back approximately 14 days after her surgery. Ms Dow and her asked appropriate questions today. Their questions were answered. We appreciate being involved in the care of Ms Dow. Electronically Signed by Jessi Pleitez MD 08/19/2011 13:46 Jessi Pleitez MD - Jessi Pleitez MD - SAMEER Job ID: SM Doc ID: [id number] Ext Doc ID: [id number] cc: MD Cristina Campos MD Mark A Levine, MD documented in this encounter Plan of Treatment Upcoming Encounters Date Type Specialty Care Team Description 12/16/2021 Appointment Infusion Therapy 04/15/2022 Office Visit Hematology and Oncology Poppy Felton PA-C [address] [phone] (Wo rk) 05/30/2022 Office Visit Surgical Oncology Asa Cameron MD [address] [phone] (Wo rk) documented as of this encounter Visit Diagnoses Diagnosis Breast cancer (HCC-CMS) (HCC) Malignant neoplasm of breast (female), u nspecified site documented in this encounter Care Teams Curing Machine Operator Relationship Specialty Start Date End Date Evert Perdomo MD PCP - General 10/13/08 05/13/[address] [phone] documented as of this encounter
--- OUTSIDE RECORDS SUMMARY | 2021-11-29 00:32 | XMS_ITS | Encounter Summary ---
:1970 Author Organization [facility] Address [address] [place] [address] Care Team Providers Name Role Phone Evert Perdomo MD Primary Care Provider Encounter Details Date Type Department Care Team Description 08/28/2010 Phlebotomy Only [facility] Rn, [facility] Outpatient [address] [place] [address] Social History Tobacco Use Types Packs/Day Years [...] and Oncology Poppy Felton PA-C 111 [facility] [address] [place], [place] [phone] (Wo rk) 05/30/2022 Office Visit Surgical Oncology Asa Cameron MD [address] [facility] [address] [place], [place] [phone] (Wo rk) documented as of this encounter Procedures Procedure Name Priority Date/Time Associated Comments Diagnosis THYROID CASCADE Routine 08/28/2010 9:43 Depression Results f or this EDT procedure are i n the results section. COMPLETE BLOOD COUNT Routine 08/28/2010 9:43 Depression Resu lts for this EDT procedure are i n the results section. COMPREHENSIVE Routine 08/28/2010 9:43 Depression Results for this METABOLIC PANEL (CMP) EDT proced ure are in the results section. documented in this encounter Results (ABNORMAL) COMPREHENSIVE METABOLIC PANEL (CMP) (08/28/2010 9:43 EDT) Pathologist [facility] nature Potassium 4.3 3.5 - 5.0 mEq/L [facility] [...] specimen (specimen) Performing Organization Address [facility]/ZIP Code Phon e Number [facility] [address] [place] [address] SERVICES [facility] [address] [place] [address] THYROID CASCADE (08/28/2010 9:43 EDT) TSH 2.41 0.35 - 5.00 [facility] Comment: uIU/ml ??TSH cascade is not recommended for patients in [facility] h pituitary or hypothalamic disorders are suspected. Specimen Blood specimen (specimen) Performing Organization Address [facility] Phon e Number [facility] [address] [place] [address] SERVICES [facility] [address] [place] [address] HEMAGRAM (08/28/2010 9:43 EDT) Pathologist Sig nature [...] Specimen Blood specimen (specimen) Performing Organization Address City/[facility]/ZIP [facility] Phon e Number [facility] [address] [place] [address] SERVICES [facility] [address] [place] [address] documented in this encounter Visit Diagnoses Diagnosis Depression Depressive disorder, not elsewhere class ified documented in this encounter Care Teams Vice Principal Relationship Specialty Start Date End Date Evert Perdomo MD PCP - General 10/13/08 05/13/[address] [phone] documented as of this encounter
--- OUTSIDE RECORDS SUMMARY | 2021-11-29 00:32 | XMS_ITS | Encounter Summary ---
:1970 Author Organization [facility] Address [address] [place] [address] Care Team Providers Name Role Phone Evert Perdomo MD Primary Care Provider Encounter Details Date Type Department Care Team Description 07/28/2011 Results Only Imaging [facility] Evert Perdomo, Adult Primary Care - [address] [phone] (Wo rk) Social History Tobacco Use Types [...] Felton PA-C 111 [facility] [address] [place], [place] [phone] (Wo rk) 05/30/2022 Office Visit Surgical Oncology Asa Cameron MD 111 [facility] [address] [place] [phone] (Wo rk) documented as of this encounter Visit Diagnoses Not on filedocumented in this encounter Care Teams Structural Analysis Engineer Relationship Specialty Start Date End Date Evert Perdomo MD PCP - General 10/13/08 05/13/[address] [phone] documented as of this encounter
--- OUTSIDE RECORDS SUMMARY | 2021-11-29 00:32 | XMS_ITS | Encounter Summary ---
:1970 Author Organization [facility] Address [address] [place] [address] Care Team Providers Name Role Phone Evert Perdomo MD Primary Care Provider Reason for Visit Reason Onset Date Comments Medications Refill 03/19/2011 Encounter Details Date Type Department Care Team Description 03/19/2011 Refill [facility] Adult Evert Perdomo MD Medications Refill Primary Care - [address] [address] [phone] (Wo rk) Social History Tobacco Use Types [...] on file documented as of this encounter Ordered Prescriptions Prescription Sig Dispensed Refills Start Date End Date methylphenidate (CONCERTA) Take 1 Tab by 28 Tab 0 201104/14/2011 27 mg CR tablet mouth daily. documented in this encounter Miscellaneous Notes Telephone Encounter - Mamta Mayorga - 03/20/2011 1630 EST Script in drawer elephone Encounter - Cristiane Bautista - 03/19/2011 1336 EST Pt requesting refill for Methyllphenidate HCL 27 mg, 1 PO daily, #28. Would like to hop picker on Thursday. documented in this encounter Plan of Treatment Upcoming Encounters Date Type Specialty Care Team Description 12/16/2021 Appointment Infusion Therapy 04/15/2022 Office Visit Hematology and Oncology Poppy Fetlon, SHAHAB 111 [facility] [address] [place], [place] [phone] (Wo rk) 05/30/2022 Office Visit Surgical Oncology Asa Cameron MD [address] [phone] (Wo rk) documented as of this encounter Visit Diagnoses Not on filedocumented in this encounter Discontinued Medications Medication Sig Discontinue Reason Start Date End Date methylphenidate (CONCERTA) Take 1 Tab by Reorder 12/08/2010 03/19/2011 27 mg CR tablet mouth daily for 90 days. documented as of this encounter Care Teams Client Technical Support Associate Relationship Specialty Start Date End Date Evert Perdomo MD PCP - General 10/13/08 05/13/[address] [address] documented as of this encounter
--- OUTSIDE RECORDS SUMMARY | 2021-11-29 00:32 | XMS_ITS | Encounter Summary ---
:1970 Author Organization [facility] Address [address] [place] [address] Care Team Providers Name Role Phone Evert Perdomo MD Primary Care Provider Reason for Referral Radiology Services (Routine/Next Available) - Closed Specialty Diagnoses / Procedures Referred By Contact Refer red To Contact Diagnoses Malignant neoplasm of breast (female), unspecified site Asa Cameron MD Procedures CHEST PA AND LATERAL [address] [facility] Level [address] [place] [phone] Referral ID Status Reason Start Date Expiration Date Visits Requ ested Visits Authorized [id number] Closed 08/04/2011 1 1 Reason for Visit Reason Onset Date Comments Breast Cancer 08/04/2011 Breast Cancer-right Encounter Details Date Type Department Care Team Description 08/04/2011 Orders [address] [facility] Asa Cameron MD Malignant neoplasm of Surgical Oncology - [address] [place] [address] breast (female), [facility] [address] unspecified site 111 [facility] (Primary Dx) [address] [place] [address] (Wo rk) Social History Tobacco [...] Hematology and Oncology Poppy Felton, PAChuyC [address] [phone] (Wo rk) 05/30/2022 Office Visit Surgical Oncology Asa Cameron MD [address] [phone] (Wo rk) documented as of this encounter Procedures Procedure Name Priority Date/Time Associated Diagnosis Comme [facility] CHEST PA AND Routine 08/05/2011 16:15 Malignant neoplasm Resul ts for this LATERAL EDT of breast (female), procedur e are in unspecified site the results section. documented in this encounter Results CHEST PA AND LATERAL (08/05/2011 16:15 EDT) Anatomical Region Laterality Modality Other Specimen Narrative [facility] RADIOLOGY - 08/05/2011 16:50 EDT CHEST PA AND LAT ??Aug 05, 2011 04:15:00 PM Clinical history/Comments: Right breast cancer. Comparison: None. Findings: PA and lateral views of the chest were o btained. The bones show no abnormality. The cardi omediastinal contours and pulmonary vascularity are normal. The charlene ngs are clear and there is no evidence of pleural disease or pneumotho rax. Impression: Normal chest. I have personally reviewed the images an d the above interpretation and agree with the findings. Procedure Note Javier Bell MD - 08/05/2011 CHEST PA AND LAT Aug 05, 2011 04:15:00 P M Clinical history/Comments: Right breast cancer. Comparison: None. Findings: PA and lateral views of the chest were o btained. The bones show no abnormality. The cardi omediastinal contours and pulmonary vascularity are normal. The charlene ngs are clear and there is no evidence of pleural disease or pneumotho rax. Impression: Normal chest. I have personally reviewed the images an d the above interpretation and agree with the findings. Performing Organization Address City/State/ZIP Code Phon e Number [facility] RADI[facility] RADIOLOG[facility] HEMAGRAM AND DIFFERENTIAL (08/05/2011 15:54 EDT) Pathologist Sig nature WBC 6.49 4.0 - 12.4 K/cmm [facility] RBC 4.36 3.86 - 5.04 M/cmm [facility] Hemoglobin 13.7 11.6 - 15.2 gm/dl [facility] HCT 39.9 34.9 - 44.4 % [facility] MCV 92 81 - 98 fl [facility] MCH 31.5 26.7 - 33.3 pg [facility] MCHC 34.4 32.1 - 35.9 gm/dl [facility] PLT 221 141 - 320 K/cmm [facility] RDW-CV 12.9 11.7 - 14.6 % [facility] Neutrophils 63.6 45.5 - 79.7 % [facility] Lymphocytes 29.7 15.0 - 46.8 % [facility] Monocytes 5.5 1.8 - 12.0 % [facility] Eosinophils 0.7 0.6 - 6.9 % [facility] Basophils 0.5 0.2 - 1.4 % [facility] ABS Neutrophils 4.13 2.20 - 8.85 K/cmm [facility] ABS Lymphs 1.92 1.09 - 3.30 K/cmm [facility] ABS Monocytes 0.36 0.1 - 0.8 K/cmm [facility] ABS Eosinophils 0.05 0.03 - 0.61 K/cmm [facility] ABS Basophils 0.03 0.01 - 0.11 K/cmm [facility] Type of Diff: Automated [facility] Specimen Blood specimen (specimen) Performing Organization Address [facility] Phon e Number [facility] [address] [place] [address] SERVICES [facility] [address] [place] [address] COMPREHENSIVE METABOLIC PANEL (CMP) (08/05/2011 15:54 EDT) Pathologist [facility] nature Potassium 4.7 3.5 - 5.0 mEq/L [facility] Sodium 140 136 - 145 mEq/L [facility] Chloride 103 96 - 110 mEq/L [facility] CO2 24 24 - 32 mEq/L [facility] Total Alkaline 40 38 - 126 U/L [facility] Phosphatase Bilirubin, Total <0.5 0.2 - 1.3 mg/dl [facility] AST 27 15 - 46 U/L [facility] ALT 25 9 - 52 U/L [facility] Albumin 4.2 3.4 - 4.9 g/dl [facility] Total Protein 6.7 6.5 - 8.3 g/dl [facility] Creatinine 0.79 0.52 - 1.04 [facility] mg/dl GFR, Calculated >60 >60 [facility] ml/min/1.73m2 BUN 16 10 - 26 mg/dl [facility] Calcium 10.0 8.5 - 10.5 mg/dl [facility] Calculated Calcium 10.2 8.5 - 10.5 mg/dl [facility] Glucose, Serum 76 70 - 100 mg/dl [facility] Fasting? No [facility] Specimen Blood specimen (specimen) Performing Organization Address [facility] Phon e Number [facility] [address] [place] [address] SERVICES [facility] [address] [place] [address] documented in this encounter Visit Diagnoses Diagnosis Malignant neoplasm of breast (female), u nspecified site - Primary documented in this encounter Care Teams Laboratory Scientist Relationship Specialty Start Date End Date Evert Perdomo MD PCP - General 10/13/08 05/13/[address] [address] documented as of this encounter
--- OUTSIDE RECORDS SUMMARY | 2021-11-29 00:32 | XMS_ITS | Encounter Summary ---
:[address] [facility] Address [address] [place] [address] Care Team Providers Name Role Phone Evert Perdomo MD Primary Care Provider Reason for Visit Reason Comments Breast Cancer Encounter Details Date Type Department Care Team Description 08/11/2011 Office Visit [facility] Pramod Herrera Breast cancer Plastic, Reconstructive Cindy Norwood FACS ([facility] (Primary & Cosmetic Surgery - [address]) [address], [address] [place] [address] [address] [place] [address] (Work) [phone] Social History Tobacco Use Types Packs/Day Years [...] documented as of this encounter Progress Notes Pramod Herrera MD - 11/23/2011 1810 EDT Reason for Visit /HPI: Jia is seen in consultation for breast reconstruction at the request of Dr. Asa Cameron. Jia was diagnosed with a biopsy-proven invasive ductal cancer of her right breast and has chosen to undergo a right mastectomy with prophylactic left mastectomy. 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 Patient Active Problems: Patient Active Problem List Diagnoses ??? Depression ??? ADHD (attention deficit hyperactivity disorder) ??? Unspecified episodic mood disorder ??? Breast cancer Past Medical History: Past Medical History Diagnosis Date ??? Cancer Past Surgical History: Past Surgical History Procedure Date ??? Hand tendon surgery ??? Breast surgery Family History: Family History Problem Relation Age of Onset ??? Cancer Brother thyroid ??? Cancer Maternal Grandmother breast, postmenopausal Health Habits: History Substance Use Topics ??? Smoking status: Never Smoker ??? Smokeless tobacco: Never Used ??? Alcohol Use: No rare Medications: Outpatient Encounter Prescriptions as of 08/11/2011 Medication Sig Dispense Refill ??? DISCONTD: methylphenidate (CONCERTA) 27 mg CR tablet Take 27 mg by mouth daily. ??? DISCONTD: NORETH A-ET ESTRA/FE FUMARATE (LOESTRIN 24 FE ORAL) Take by mouth daily. ??? DISCONTD: lisdexamfetamine (VYVANSE) 30 mg capsule Take 1 Cap by mouth daily. 28 Cap 0 ??? DISCONTD: buPROPion (WELLBUTRIN XL) 300 mg XL tablet Take 1 Tab by mouth daily. 90 Tab 3 ??? DISCONTD: trazodone (DESYREL) 50 mg tablet Take 1.5 Tabs by mouth at bedtime. [id number] by mouth.135 Tab 1 ??? DISCONTD: clonAZEPAM (KLONOPIN) 0.5 mg tablet Take 1 Tab by mouth 2 times daily as needed. 6 Tab0 ??? DISCONTD: Capron-3 Fatty Acids-Vitamin E (FISH OIL) 1,000 mg Cap Take by mouth. ??? DISCONTD: LEVONORGESTREL-ETH ESTRA (AVIANE ORAL) Take by mouth. Allergies: No Known Allergies ROS: The patient denies neuro, endocrine, ENT, opthamologic, pulmonary, cardiovascular, gastrointestinal,genitourinary, dermatologic, or musculoskeletal complaints other than those above. Vitals: There were no vitals taken for this visit. Physical Exam: Patient is a well-developed well-nourished female in no apparent distress other than slight anxiety. She has a well conditioned core. Her sternal lash to nipple distance on theright is 19 cm and on the left is 22 cm. She has a slight asymmetry to her rib cage being more prominent on the left over the floating ribs in the right. Her left breast Has slightly more volume than the right. Assessment: 41 y.o. female with biopsy-proven breast cancer scheduled for right therapeutic mastectomy and left prophylactic mastectomy. I discussed breast reconstruction at length with Jia and her including reviewing the reconstruction possibilities ranging from: No reconstruction Immediate versus delayed reconstruction Implant based reconstruction Tissue manager business to implant Direct to implant Autologous tissue reconstruction TRAM (pedicle versus free) LITA, SGAP, IGAP, TUG) Combined tissue and implant reconstruction latissimus dorsi We discussed the general risks of these reconstructive surgery techniques including reviewing the more specific risks of the reconstructions we most commonly performed here being tissue manager business to implant reconstruction and pedicled TRAM flap reconstruction. She understands should she prefer a perfora tor technique I can I will refer her to [facility]. In terms of tissue manager business implant based reconstruction the patient understands the technique to require 2 more surgeries with serial fills of the tissue manager business over approximate six-month period. She understands that tissue expanders and implants are mechanical devices and do have a failure rate and therefore would require a later surgery for implant exchange. We discussed capsular contracture (all grades), implant palpability/rippling, infection/tissue necrosis/implant exposure (which would likely require implant removal). We discussed the significantly increased risk in manager business/implant reconstruction the patient to receive postoperative radiation or have received previous radiation therapy for any reason. We discussed the use of human derived acellular dermal matrix. We discussed pedicled TRAM flap reconstruction. She understands that this is a larger surgery with alonger operative time and longer hospitalization. We discussed the possibility of partial or complete flap loss including fat necrosis. We discussed abdominal wall weakness postoperatively including bulging or hernia formation despite when-possible muscle-splitting and abdominal wall reinforcement. Wealso discussed physical core weakness. We discussed healing problems at either the reconstruction site or the donor site. We discussed complications with the umbilicus including complete loss. We discussed hematoma/infection/seroma/prolonged drain placement. We discussed TRAM flap injury related to radiation. Jia understands that reconstructed breasts are never are capable of replacing her original breastin look or fell. She understands that once the soft tissue has healed she has an option of nipple reconstruction with areolar tattooing. The relevant [place] [employer] consent forms were also provided to the patient for her per perusal. Plan: Bilateral tissue manager business based reconstruction. Note: Jia and her understand that usually I meet with patients twice prior to surgery butwhen the time frame is compressed and if the patient desires I will do the 2nd appointment by phone and consents day of surgery. Orders: There are no diagnoses linked to this encounter. I spent 50 minutes with this patient; 45 minutes was spent in [id number] counseling and coordination of care. PRAMOD HERRERA MD 11/23/2011 18:15 documented in this encounter Plan of Treatment Upcoming Encounters Date Type Specialty Care Team Description 12/16/2021 Appointment Infusion Therapy 04/15/2022 Office Visit Hematology and Oncology Poppy Felton PA-C [address] [phone] (Wo rk) 05/30/2022 Office Visit Surgical Oncology Asa Cameron MD [address] [phone] (Wo rk) documented as of this encounter Visit Diagnoses Diagnosis Breast cancer (HCC-CMS) (HCC) - Primary Malignant neoplasm of breast (female), u nspecified site documented in this encounter Care Teams Sales And Service Associate Relationship Specialty Start Date End Date Evert Perdomo MD PCP - General 10/13/08 05/13/[address] [address] documented as of this encounter
--- OUTSIDE RECORDS SUMMARY | 2021-11-29 00:32 | XMS_ITS | Encounter Summary ---
:1970 Author Organization [facility] Address [address] [place] [address] Care Team Providers Name Role Phone Evert Perdomo MD Primary Care Provider Reason for Visit Reason Onset Date Comments Medications Refill 06/21/2010 Encounter Details Date Type Department Care Team Description 06/21/2010 Refill [facility] Adult Evert Perdomo MD Medications Refill Primary Care - [address] [address] [phone] (Wo rk) Social History Tobacco Use Types [...] Tab by mouth 90 Tab 3 0 06/21/2010 07/25/2011 300 mg XL tablet daily. documented in this encounter Miscellaneous Notes Telephone Encounter - Filomena Ochoa PA-C - 06/24/[address] Perdomo's note, no change in dose. elephone Encounter - Melanie Oconnor RN - 06/24/2010 1732 EDT Filomena, will you double check this one- no changes made in Wellbutrin dose, right? Telephone Encounter - Marilou Bruner - 06/21/2010 1606 EDT Rec'd fax from pharmacy for refill for Bupropion documented in this encounter Plan of Treatment Upcoming Encounters Date Type Specialty Care Team Description 12/16/2021 Appointment Infusion Therapy 04/15/2022 Office Visit Hematology and Oncology Poppy Felton PA-C [address] [phone] (Wo rk) 05/30/2022 Office Visit Surgical Oncology Asa Cameron MD [address] [phone] (Wo rk) documented as of this encounter Visit Diagnoses Not on filedocumented in this encounter Discontinued Medications Medication Sig Discontinue Reason Start Date End Date buPROPion (WELLBUTRIN XL) Take 300 mg by Reorder 06/21/2010 300 mg XL tablet mouth daily. documented as of this encounter Care Teams Signal Operator Linguist Relationship Specialty Start Date End Date Evert Perdomo MD PCP - General 10/13/08 05/13/[address] [place] [phone] documented as of this encounter
--- OUTSIDE RECORDS SUMMARY | 2021-11-29 00:32 | XMS_ITS | Encounter Summary ---
:1970 Author Organization [facility] Address [address] [place] [address] Care Team Providers Name Role Phone Evert Perdomo MD Primary Care Provider Reason for Visit Reason Onset Date Comments Medications Refill 07/17/2011 Encounter Details Date Type Department Care Team Description 07/17/2011 Refill [facility] Adult Evert Perdomo MD Medications Refill Primary Care - [id number] [place] [phone] (Wo rk) Social History Tobacco Use Types [...] Take 1 Tab by 28 Tab 0 201107/25/2011 27 mg CR tablet mouth daily for 28 days. documented in this encounter Miscellaneous Notes Telephone Encounter - Mamta Mayorga - 07/18/2011 1436 EDT Script in drawer Patient aware Telephone Encounter - Audelia Richardson - 07/17/2011 1519 EDT She needs a new Rx for Concerta, 27 mg, i po daily, #28. She is due on Thursday but is going away tomorrow night so she needs to pick the Rx up tomorrow afternoon if possible. She will call then to see if it is ready. documented in this encounter Plan of Treatment Upcoming Encounters Date Type Specialty Care Team Description 12/16/2021 Appointment Infusion Therapy 04/15/2022 Office Visit Hematology and Oncology Poppy Felton PA-C [address] [phone] (Wo rk) 05/30/2022 Office Visit Surgical Oncology Asa Cameron MD [address] [phone] (Wo rk) documented as of this encounter Visit Diagnoses Not on filedocumented in this encounter Discontinued Medications Medication Sig Discontinue Reason Start Date End Date methylphenidate (CONCERTA) Take 1 Tab by Reorder 06/20/2011 07/17/2011 27 mg CR tablet mouth daily for 28 days. documented as of this encounter Care Teams Tassel Making Machine Operator Relationship Specialty Start Date End Date Evert Perdomo MD PCP - General 10/13/08 05/13/[address] [place] [phone] documented as of this encounter
--- OUTSIDE RECORDS SUMMARY | 2021-11-29 00:32 | XMS_ITS | Encounter Summary ---
:1970 Author Organization [facility] Address [address] [place] [address] Care Team Providers Name Role Phone Evert Perdomo MD Primary Care Provider Reason for Visit Reason Onset Date Comments Medications Refill 06/20/2011 Encounter Details Date Type Department Care Team Description 06/20/2011 Refill [facility] Adult Evert Perdomo MD Medications Refill Primary Care - [address] [address] [phone] (Wo rk) Social History Tobacco Use Types [...] Take 1 Tab by 28 Tab 0 201107/17/2011 27 mg CR tablet mouth daily for 28 days. documented in this encounter Miscellaneous Notes Telephone Encounter - Mamta Mayorga - 06/23/2011 1131 EDT SCRIPT IN DRAWER elephone Encounter - Jia Russo - 06/20/2011 1433 EDT Pt called for Concerta refill. Plse fill asap documented in this encounter Plan of Treatment Upcoming Encounters Date Type Specialty Care Team Description 12/16/2021 Appointment Infusion Therapy 04/15/2022 Office Visit Hematology and Oncology Poppy Felton PA-C [address] [phone] (Wo rk) 05/30/2022 Office Visit Surgical Oncology Asa Cameron MD [address] [phone] (Wo rk) documented as of this encounter Visit Diagnoses Not on filedocumented in this encounter Discontinued Medications Medication Sig Discontinue Reason Start Date End Date methylphenidate (CONCERTA) Take 1 Tab by Reorder 05/23/2011 06/20/2011 27 mg CR tablet mouth daily for 28 days. documented as of this encounter Care Teams Personal Companion Relationship Specialty Start Date End Date Evert Perdomo MD PCP - General 10/13/08 05/13/[address] [address] documented as of this encounter
--- OUTSIDE RECORDS SUMMARY | 2021-11-29 00:32 | XMS_ITS | Encounter Summary ---
:1970 Author Organization [facility] Address [address] [place] [address] Care Team Providers Name Role Phone Evert Perdomo MD Primary Care Provider Reason for Visit Reason Onset Date Comments Medications Refill 05/19/2011 Encounter Details Date Type Department Care Team Description 05/19/2011 Refill [facility] Adult Evert Perdomo MD Medications Refill Primary Care - [address] [address] [phone] (Wo rk) Social History Tobacco Use Types [...] Take 1 Tab by 28 Tab 0 201106/20/2011 27 mg CR tablet mouth daily for 28 days. documented in this encounter Miscellaneous Notes Telephone Encounter - Jia Russo. - 05/23/2011 1422 EDT Prescription in drawer. will pickle processor. elephone Encounter - Lucero Ly RN - 05/23/2011 1300 EDT Due 05-14-11 Telephone Encounter - Audelia Richardson - 05/23/2011 1245 EDT Patient called on Thursday for this but, unfortunately, the message was not routed to anyone. She needs to be able to pick it up by 3 pm. I told her we would call her when it is ready. elephone Encounter - Patricia Rivas - 05/19/2011 1617 EDT Cpt called script line requesting refill of Concerta, 27 mg CR, 30 tabs one by mouth daily Pt wants to be called when script is ready to be picked up documented in this encounter Plan of Treatment Upcoming Encounters Date Type Specialty Care Team Description 12/16/2021 Appointment Infusion Therapy 04/15/2022 Office Visit Hematology and Oncology Poppy Felton PA-C [address] [phone] (Wo rk) 05/30/2022 Office Visit Surgical Oncology Asa Cameron MD 111 [facility] [place], [place] [phone] (Wo rk) documented as of this encounter Visit Diagnoses Not on filedocumented in this encounter Discontinued Medications Medication Sig Discontinue Reason Start Date End Date methylphenidate (CONCERTA) Take 1 Tab by Reorder 04/16/2011 05/23/2011 27 mg CR tablet mouth daily for 28 days. documented as of this encounter Care Teams Apartment Leasing Specialist Relationship Specialty Start Date End Date Evert Perdomo MD PCP - General 10/13/08 05/13/[address] [place] [address] documented as of this encounter
--- OUTSIDE RECORDS SUMMARY | 2021-11-29 00:32 | XMS_ITS | Encounter Summary ---
:1970 Author Organization [facility] Address [address] [place] [address] Care Team Providers Name Role Phone Evert Perdomo MD Primary Care Provider Reason for Visit Reason Onset Date Comments Medications Refill 09/02/2010 Encounter Details Date Type Department Care Team Description 09/02/2010 Refill [facility] Adult Evert Perdomo MD Medications Refill Primary Care - [address] [place] [address] [address] [phone] (Wo rk) Social History Tobacco Use Types [...] Date methylphenidate (CONCERTA) Take 1 Tab by 90 Tab 0 201011/22/2010 27 mg CR tablet mouth daily for 90 days. documented in this encounter Miscellaneous Notes Telephone Encounter - Charlotte Lynne - 09/04/2010 1210 EDT Script in drawer Pt aware elephone Encounter - Melanie Oconnor RN - 09/03/2010 1406 EDT Pts last refill was 06/11 OV. Directions are for 1 tablet QD, #90, 0 RF. The start date is 06/11 but the end date is 07/11 (28 days). An order will be pended with start and end dates for 90 days. elephone Encounter - Marilou Bruner - 09/02/2010 1427 EDT Pt left RX refill message in voicemail for Concerta 27mg tab, 3 month supply. Please print Rx and call patient when it is ready to be picked up. documented in this encounter Plan of Treatment Upcoming Encounters Date Type Specialty Care Team Description 12/16/2021 Appointment Infusion Therapy 04/15/2022 Office Visit Hematology and Oncology Poppy Felton PA-C 111 [facility] 2 [place], [place] [phone] (Wo bradford) 05/30/2022 Office Visit Surgical Oncology Asa Cameron MD 111 [facility], [facility] 2 [place], [place] [phone] (Wo rk) documented as of this encounter Visit Diagnoses Not on filedocumented in this encounter Discontinued Medications Medication Sig Discontinue Reason Start Date End Date methylphenidate (CONCERTA) Take 27 mg by Reorder 09/02/2010 27 mg CR tablet mouth daily. documented as of this encounter Care Teams Wool Cleaner Relationship Specialty Start Date End Date Evert Perdomo MD PCP - General 10/13/08 05/13/[address] [place] [address] documented as of this encounter
--- OUTSIDE RECORDS SUMMARY | 2021-11-29 00:32 | XMS_ITS | Encounter Summary ---
:[address] [facility] Address [address] [place] [address] Care Team Providers Name Role Phone Evert Perdomo MD Primary Care Provider Encounter Details Date Type Department Care Team Description 08/05/2011 Phlebotomy Only [place] [employer]eter, Traci [facility]aya [facility] Outpatient of breast (female), [address] [place] [address] [place] [address] Social History Tobacco Use Types Packs/Day Years [...] Hematology and Oncology Poppy Felton, SHAHAB 111 [facility], [facility] 2 [place], [place] [phone] (Wo rk) 05/30/2022 Office Visit Surgical Oncology Asa Cameron MD 111 [facility], [facility] 2 [place], [place] [phone] (Wo rk) documented as of this encounter Procedures Procedure Name Priority Date/Time Associated Comments Diagnosis COMPLETE BLOOD COUNT Routine 08/05/2011 15:54 Malignant neopla sm Results for this AND DIFFERENTIAL EDT of breast (female), proc edure are in unspecified site the results section. COMPREHENSIVE Routine 08/05/2011 15:54 Malignant neoplasm Resu lts for this METABOLIC PANEL (CMP) EDT of breast (female), procedure are in unspecified site the results section. documented in this encounter Results HEMAGRAM AND DIFFERENTIAL (08/05/2011 15:54 EDT) Pathologist [...] Specimen Blood specimen (specimen) Performing Organization Address City/[facility] Phon e Number [facility] [address] [place] [address] SERVICES [facility] [address] [place] [address] COMPREHENSIVE METABOLIC PANEL (CMP) (08/05/2011 15:54 EDT) [facility] nature Potassium 4.7 3.5 - 5.0 mEq/L [...] Specimen Blood specimen (specimen) Performing Organization Address [facility] Phon e Number [facility] [address] [place] [address] [facility] [address] [place] [address] documented in this encounter Visit Diagnoses Diagnosis Malignant neoplasm of breast (female), u nspecified site documented in this encounter Care Teams Ceiling Cleaner Relationship Specialty Start Date End Date Evert Perdomo MD PCP - General 10/13/08 05/13/[address] [phone] documented as of this encounter
--- OUTSIDE RECORDS SUMMARY | 2021-11-29 00:32 | XMS_ITS | Encounter Summary ---
:1970 Author Organization [facility] Address [address] [place] [address] Care Team Providers Name Role Phone Evert Perdomo MD Primary Care Provider Encounter Details Date Type Department Care Team Description 07/30/2011 Hospital Encounter [facility] 111 [facility] [address] [place] [address] [address] [place] [address] (Wo bradford) Social History Tobacco Use Types [...] 0 201109/29/2011 30 mg capsule mouth daily. Laie-3 Fatty Acids-Vitamin Take by mouth. 0 09/10/2011 E (FISH OIL) 1,000 mg Cap trazodone (DESYREL) 50 mg Take 1.5 Tabs by 135 Tab 1 02/2411/11/2011 tablet mouth at bedtime. [id number] by mouth. documented as of this encounter Discharge Disposition Disposition Code Departure Means Destination Auto Discharge Home documented in this encounter Plan of Treatment Upcoming Encounters Date Type Specialty Care Team Description 12/16/2021 Appointment Infusion Therapy 04/15/2022 Office Visit Hematology and Oncology Poppy Felton, PACl [address] [phone] (Wo rk) 05/30/2022 Office Visit Surgical Oncology Asa Cameron MD 111 [facility] 2 [place] [phone] (Wo rk) documented as of this encounter Visit Diagnoses Not on filedocumented in this encounter Care Teams Geomorphologist Relationship Specialty Start Date End Date Evert Perdomo MD PCP - General 10/13/08 05/13/[address] [phone] documented as of this encounter
--- OUTSIDE RECORDS SUMMARY | 2021-11-29 00:32 | XMS_ITS | Encounter Summary ---
:1970 Author Organization [facility] Address [address] [place] [address] Care Team Providers Name Role Phone Evert Perdomo MD Primary Care Provider Encounter Details Date Type Department Care Team Description 08/14/2011 - [facility] Asa Jauregui MD [address] [facility], [facility] [address] [place] [address] Breast cancer 08/16/2011 Encounter General Surgery Roman Chino MD [address] [address] ([facility] [address] [place] [address] Social History Tobacco Use Types [...] Sign Reading Time Taken Comments Blood Pressure 131/61 08/16/2011 1107 EDT Pulse 57 08/16/2011 1107 EDT Temperature 36.6 ??C (97.9 ??F) 08/16/2011 1107 EDT Respiratory Rate 16 08/16/2011 1107 EDT Oxygen Saturation 99% 08/16/2011 1107 EDT Inhaled Oxygen Concentration - - Weight 60.3 kg (133 lb) 08/11/2011 1544 EDT Height 167.6 cm (5' 6) 08/11/2011 1544 EDT Body Mass Index 21.47 08/11/2011 1544 EDT documented in this encounter Functional Status Cognitive Status Response Date of Assessment Because of a physical, mental, or emotional condition, do Ye s 08/15/2011 you have serious difficulty concentrating, remembering, or making decisions? (5 years old or older) documented as of this encounter Discharge Summaries Herrera Gomez MD - 08/16/2011 0643 EDT Discharge Summary Chief Complaint/Reason for Admission: Right breast cancer Principal/Final Diagnosis: Right breast cancer Principal Procedure: Bilateral mastectomy with expender placement Date: 08/14/2011 Prognosis: good Condition at Discharge: Good Relevant Studies at Discharge: none Assessment at Discharge: Vital signs: Patient Vitals for the past 12 hrs: BP Pulse Resp Temp SpO2 O2 Device 08/16/11 0726 136/71 mmHg 55 16 36.8 ??C (98.2 ??F) 96 % Room air 08/16/11 0426 131/60 mmHg 64 16 37.1 ??C (98.8 ??F) 98 % Room air 08/15/11 2340 145/65 mmHg 66 16 38 ??C (100.4 ??F) 96 % Room air Hospital Course: Mrs. Jia Dow is a otherwise health 41 y.o. year old female who was diagnosed with breat cancer. She was seen and evaluated in the clinic and the discission was made to proceed to the OR for a oncoplastic procedure. As such, on 08/14/2011 , Mrs. Jia Dow was taken to the OR with Dr. Jauregui and Lulú , where she underwent a Bilateral mastectomy, Right sentinel node biopsy and placement of tissue expanders bilaterally. Intra-operative findings included a negative node. She was extubated and transferred to the PACU in stable condition, where she began her recovery before later being transferred to the floor.She was keept over night for pain control with IV pain medications but had an otherwise uncomplicated course. She recovered nicely and on 08/16/2011 Mrs. Jia Dow was tolerating a General diet. She was able to ambulated well. Her pain was controlled with oral pain medications. As such she was discharged home on 08/16/2011. She was told to follow up with her primary care doctor in 5-7 days. She was instructed to follow up with Dr. Jauregui and Dr. Chino. Future Appointments Date Time Provider Department Center 08/29/2011 15:30 Asa Jauregui MD MP2 Surg-Onc None 09/03/2011 11:30 Jessi Pleitez MD EP2 Hem/Onc None 11/25/2011 13:45 Evert Perdomo MD PCIM Given None Relevant Studies at Discharge: none Last Lab Results at Discharge: BUN: Lab Results Component Value Date BUN 7* 08/16/2011 Creatinine: Lab Results Component Value Date CREATININE 0.78 08/16/2011 CBC: Lab Results Component Value Date WBC 6.07 08/16/2011 RBC 3.40* 08/16/2011 HGB 10.6* 08/16/2011 HCT 31.1* 08/16/2011 MCV 91 08/16/2011 MCH 31.1 08/16/2011 MCHC 34.1 08/16/2011 PLT 158 08/16/2011 DIFFTYPE Automated 08/16/2011 Electrolytes: Lab Results Component Value Date NA 137 08/16/2011 K 3.8 08/16/2011 CL 105 08/16/2011 CO2 27 08/16/2011 cc: PCP: Evert Perdomo MD Referring Prov:Evert Perdomo Discharge Summary Completed: documented in this encounter Discharge Instructions AnnabellaCrHerrera das MD - 08/16/2011 Diet: Resume previous diet Activity: No heavy lifting, straining or exercise for 6 weeks Keep head elevated at all times Sleep with head elevated on at least two pillows Skin/Wound Care: bring a written record of your drain output with you to your first office visit call [phone] if your drain output is less than 30 ml/day for three consecutive days Do not remove drains Bathing: No shower for 2 days Okay to get wound wet, but pat dry. Do NOT rub the wound area. Shower with soap and water daily. Pending Results: Not applicable Symptoms to Call Your Doctor About: Chest pain (angina) Dizziness or fainting Fever greater than 101.5 or chills Pain unrelieved by medication Signs of infection such as pain, redness, swelling or drainage at procedure or wound site Appointments: Please see Dr. Chino in 7-10 days or as scheduled. [phone]. Future Appointments Date Time Provider Department Center 08/29/2011 15:30 Asa Jauregui MD MP2 Surg-Onc None 09/03/2011 11:30 Jessi Pleitez MD EP2 Hem/Onc None 11/25/2011 13:45 Evert Perdomo MD PCIM Given None Follow-up Services Contacted at Discharge: none Health Risk and Disease Information: Not applicable documented in this encounter Medications at Time [...] 09/10/2011 27 mg CR tablet mouth daily. Hankins-3 Fatty Acids-Vitamin Take by mouth. 0 09/10/2011 [...] Tab 1 02/2411/11/2011 tablet mouth at bedtime. [id number] by mouth. documented as of this encounter Ordered Prescriptions Prescription Sig Dispensed Refills Start Date End Date DIAZepam (VALIUM) 5 mg Take 1 Tab by mouth 20 Tab 0 07/2509/25/2011 tablet 2 times daily. cephALEXin (KEFLEX) 500 mg Take 1 Cap by mouth 42 Cap 0 08/16/2011 09/06/2011 capsule every 12 hours for 21 days. senna (SENOKOT) 8.6 mg Take 1 Tab by mouth 0 07/2509/22/2011 tablet daily as needed. oxycodone (ROXICODONE) 5 Take 1-3 Tabs by 60 Tab 0 08/1509/10/2011 mg immediate release mouth every 3 hours tablet as needed for Pain. acetaminophen (TYLENOL) Take 2 Tabs by 1 Tab 0 08/16/19 12 09/10/2011 500 mg tablet mouth every 6 hours. documented in this encounter Discharge Disposition Disposition Code Departure Means Destination Home or Self Care documented in this encounter Progress Notes Litzy Hernandez RN - 08/16/2011 1057 EDT 1058: taught patient and how to empty drain, both return demonstrated. Drain sponges and tape was given to patient. Mo was dcd this am dtv 1400. Asa Lopez MD - 08/16/2011 1125 EDT Surgery Progress Note Admit Date: 08/14/2011 Hospital Day: LOS: 2 days Date of Service: 08/16/2011 POD: 2 Procedure: Bilateral mastectomy, right sentinel node biopsy. Tissue flexo operator placement Subjective/Chief Complaint: Patient feeling well after some initial pain and nausea overnight. No lightheadedness, SOB, CP, abdominal pain, BM. Having flatus. No ambulation or eating yet. Current Facility-Administered Medications Medication Route Frequency ??? fentanyl citrate (PF) 50 mcg/mL injection 25-100 mcg Intravenous Q2H PRN ??? ibuprofen (MOTRIN) tablet 600 mg Oral Q6H ??? DIAZepam (VALIUM) tablet 5 mg Oral Q6H PRN ??? oxycodone (ROXICODONE) immediate release tablet 5-15 mg Oral Q3H PRN ??? diphenhydrAMINE (BENADRYL) injection 25 mg Intravenous AT BEDTIME PRN ??? magnesium hydroxide (MILK OF MAGNESIA) 400 mg/5 mL suspension 30 mL Oral QHS ??? senna (SENOKOT) tablet 1 Tab Oral QHS ??? docusate sodium (COLACE) capsule 100 mg Oral DAILY ??? bisacodyl (DULCOLAX) suppository 10 mg Rectal QHS ??? fentanyl citrate (PF) 50 mcg/mL injection ??? buPROPion (WELLBUTRIN XL) XL tablet 300 mg Oral DAILY ??? fexofenadine (MART) 12 hr tablet 180 mg Oral Daily PRN ??? methylphenidate (CONCERTA) CR tablet 27 mg Oral DAILY ??? trazodone (DESYREL) tablet 75 mg Oral QHS ??? acetaminophen (TYLENOL) tablet 1,000 mg Oral Q6H ??? HYDROmorphone (DILAUDID) tablet 2-4 mg Oral Q3H PRN ??? ondansetron (PF) (ZOFRAN) injection 2-4 mg Intravenous Q4H PRN ??? ibjtolntrm-ilistkw-hfuxfkmzsixukvg (CEPACOL SORE THROAT) 15-3.6 mg lozenge 1 Lozenge Buccal PRN ??? ceFAZolin (ANCEF) 1,000 mg in sodium chloride 0.9 % 50 mL IVPB Intravenous Q8H Review of Systems: Pertinent items are noted in Subjective/HPI Objective/Physical Exam: Vital Signs: Temp: [37.1 ??C (98.8 ??F)-38 ??C (100.4 ??F)] , Pulse: [57-66] , Resp: [16] , BP: (91-145)/(51-72) , SpO2: [94 %-98 %] SpO2: 98 % Pain: Patient Vitals for the past 8 hrs: Numeric Pain Level (Scale 1-10) Asleep 08/16/11 0436 8 - 08/16/11 0200 8 Reassessed, sleeping comfortably, RR WNL. 08/16/11 0136 8 - 08/16/11 0134 8 - 08/16/11 0000 - 08/15/11 2308 - 08/15/11 2230 - 08/15/11 2229 - 08/15/11 2136 9 - Glucose Readings: (last 2 readings) No results found for this basename: GLUCOSEFINGE:2 in the last 72 hours I+O: Intake/Output Summary (Last 24 hours) at 08/16/11 0535 Last data filed at 08/16/11 0426 Gross per 24 hour Intake 1381.5 ml Output 3985 ml Net -2603.5 ml Exam: General Appearance: alert, cooperative, mild distress Lung: clear to auscultation bilaterally Heart: regular rate and rhythm, S1, S2 normal, no murmur, click, rub or gallop Abdomen: soft, non-tender; bowel sounds normal; no masses, no organomegaly Extremities: WWP, no edema Chest: Dressings C/D/I. Bilateral LIZZETTE drains with serosang WBC/Hgb/Hct/Plts: 7.19/11.0/31.5/163 (08/14 645) Na/K/Cl/CO2: 134/4.1/105/23 (08/14 645) BUN/Cr/glu/ALT/AST/amyl/lip: 11/0.65/--/--/--/--/-- (08/14 645) Assessment: 41yo woman, s/p bilateral mastectomies and tissue flexo operator placement. Patient doing well and in needof further ambulation and eating. Problems/Plan: Reg diet Home meds PO pain control Post op antibiotics Ambulate DC chamorro Ready for discharge from this team's perspective after eating, ambulating and urinating Pedrito Benson MD 08/16/2011 5:35 Patient examined, above note reviewed. Agree with findings and plan as above. Pain better this am, only small amounts of food po so far. Ambulate more and chamorro dc today per plastics team. Asa Jauregui MD Herrera walker MD - 08/16/2011 0149 EDT Plastic Surgery Post-Op Note 08/16/2011 Admit Date: 08/14/2011 Hospital Stay: LOS: 2 days POD# 2 s/p Bilateral mastectomy with expender placement S: Pt seen and examined at bedside. Pt's pain is much better controlled this morning. Denies SOB/n/v/c/d/fever/chills/headache. Pain worse with movement or deep inspiration. O: Blood pressure 145/65, pulse 66, temperature 38 ??C (100.4 ??F), temperature source Tympanic, resp. rate 16, height 167.6 cm (66), weight 60.328 kg (133 lb), SpO2 96.00%. Exam: Gen: Alert, conversing fluently and responding appropriately, appears in comfortable in bed. CV: RRR, no m/g/r Pulm: CTAB, no w/r/r Exts: WWP, pulses 2+ x4. Wound: Dressings C/D/I B/L with L & R bulb drains each with moderate amt SS drainage. A/P: 41 y.o. female s/p Bilateral mastectomy with expender placement. Pain control improved . ?? Pain control with Oxcy PO/ Fentanyl IV (for breakthrough) ?? PO Valium for anxiety and mussel relaxation ?? Activity as tolerated ?? Need to ambulate patient ?? D/C chamorro ?? Regular diet ?? Cefazolin 1 g Q8H while drains in place ?? Dispo planning home once off IV pain medication Herrera Gomez MD 08/16/2011 1:49 #[id number] Daksha Valencia - 08/15/2011 5077 EDT Case Management Assessment Working Diagnosis/Presenting Problem: Right breast cancer with bilateral masectomy, tissue expandersplaced. Living Arrangements: Lives with , 2 minor children, 10 and 11 years of age in [place], [place]. Functional Status (psychosocial and physical): Client noted to be recovering from anesthesia post opday 1. Affect pleasant but more flat. interactive. Social Supports: Reports significant social supports in addition to . Reports mother is coming to care for patient and family. [place] (): [phone] cell phone. Existing Community Resources: None needed presently. Advanced Directives/DPOA: Not completed. Cultural/Spiritual Needs: None. Insurance/Financial Needs: None. MVP PPO/EPO [employer] insurance. Transportation Needs: None. Patient Goals: To be discharged home in 1-2 days. Assessment and Discharge Care Plan: Stable post operatively. Appears to have good supports. Cuco George - 08/15/2011 1341 EDT Plastic Surgery Post-Op Note 08/15/2011 Admit Date: 08/14/2011 Hospital Stay: LOS: 1 day POD#1 s/p Bilateral mastectomy with expender placement S: Pt seen and examined at bedside. Pt's pain is marginally controlled. Denies SOB/n/v/c/d/fever/chills/headache. +Operative site pain, worse with movement or deep inspiration. O: Blood pressure 91/52, pulse 57, temperature 37.4 ??C (99.3 ??F), temperature source Tympanic, resp. rate 16, height 167.6 cm (66), weight 60.328 kg (133 lb), SpO2 95.00%. Exam: Gen: Alert, conversing fluently and responding appropriately, appears in moderate to severe pain, worse with deep breathing CV: HRR, no m/g/r Pulm: CTAB, no w/r/r Exts: WWP, pulses 2+ x4. Wound: Dressings C/D/I B/L with L & R bulb drains each with moderate amt SS drainage. A/P: 41 y.o. female s/p Bilateral mastectomy with expender placement. Pain marginally controlled. ?? Pain control with hydromorphone PO/IV ?? Activity as tolerated ?? Regular diet ?? Cefazolin 1 g Q8H TANIYA DE JESUS 08/15/2011 13:41 #[id number] Jason. Ten Olivas RN - 08/15/2011 1143 EDT Patient has had difficulty managing pain today mostly hovering between 7-10/10 pain. White surgery notified and x1 dose ordered. Dosing offered to patient but when returning to patient room, patient pain ~5/10. Patient states she feels loopy from pain medication and does not want additional pain medication at this time. Will continue to monitor. Patient seems more relaxed and sitting up in bed eating lunch. Will CTM Asa Lopez MD - 08/15/2011 0609 EDT Surgery Progress Note Admit Date: 08/14/2011 Hospital Day: LOS: 1 day Date of Service: 08/15/2011 POD: 1 Procedure: Bilateral mastectomy, right sentinel node biopsy. Tissue flexo operator placement Subjective/Chief Complaint: Pain not optimally controlled, was OK overnight but worse this AM. Current Facility-Administered Medications Medication Route Frequency ??? buPROPion (WELLBUTRIN XL) XL tablet 300 mg Oral DAILY ??? fexofenadine (MART) 12 hr tablet 180 mg Oral Daily PRN ??? lisdexamfetamine (VYVANSE) capsule 30 mg Oral DAILY ??? methylphenidate (CONCERTA) CR tablet 27 mg Oral DAILY ??? trazodone (DESYREL) tablet 75 mg Oral QHS ??? dextrose 5 % and 0.45 % NaCl with KCl 20 mEq/L infusion Intravenous CONTINUOUS ??? acetaminophen (TYLENOL) tablet 1,000 mg Oral Q6H ??? HYDROmorphone (DILAUDID) tablet 2-4 mg Oral Q3H PRN ??? ondansetron (PF) (ZOFRAN) injection 2-4 mg Intravenous Q4H PRN ??? hpfkcsntlt-kantsbp-ysxltzvkullsekk (CEPACOL SORE THROAT) 15-3.6 mg lozenge 1 Lozenge Buccal PRN ??? HYDROmorphone (PF) (DILAUDID) 1 mg/mL injection 0.2-0.6 mg Intravenous Q4H PRN ??? ceFAZolin (ANCEF) 1,000 mg in sodium chloride 0.9 % 50 mL IVPB Intravenous Q8H Review of Systems: Pertinent items are noted in Subjective/HPI Objective/Physical Exam: Vital Signs: Temp: [36.3 ??C (97.3 ??F)-37 ??C (98.6 ??F)] , Pulse: [55-80] , Resp: [12-16] , BP: (95-123)/(45-71) , SpO2: [98 %-100 %] SpO2: 100 % Pain: Patient Vitals for the past 8 hrs: Numeric Pain Level (Scale 1-10) Asleep 08/15/11 0631 0 Reassessed, sleeping comfortably, RR WNL. 08/15/11 0553 0 Reassessed, sleeping comfortably, RR WNL. 08/15/11 0500 6 - 08/15/11 0355 7 - 08/15/11 0310 0 Reassessed, sleeping comfortably, RR WNL. 08/15/11 0143 0 Reassessed, sleeping comfortably, RR WNL. 08/15/11 0050 8 - 08/14/11 2245 4 - Glucose Readings: (last 2 readings) No results found for this basename: GLUCOSEFINGE:2 in the last 72 hours I+O: Intake/Output Summary (Last 24 hours) at 08/15/11 0638 Last data filed at 08/15/11 0553 Gross per 24 hour Intake 3729 ml Output 1035 ml Net 2694 ml Exam: General Appearance: alert, cooperative, mild distress Lung: clear to auscultation bilaterally Heart: regular rate and rhythm, S1, S2 normal, no murmur, click, rub or gallop Abdomen: soft, non-tender; bowel sounds normal; no masses, no organomegaly Extremities: extremities warm, atraumatic, no cyanosis or edema positive pulses bilat Chest: Dressings C/D/I. Bilateral LIZZETTE drains with serosang Is PICC or Central line present? No, PICC/Central line not present. Data Review: NA Labs: I have personally reviewed CBC: Lab Results Component Value Date WBC 6.49 08/05/2011 RBC 4.36 08/05/2011 HGB 13.7 08/05/2011 HCT 39.9 08/05/2011 MCV 92 08/05/2011 MCH 31.5 08/05/2011 MCHC 34.4 08/05/2011 PLT 221 08/05/2011 NEUTROABS 4.13 08/05/2011 BMP: Lab Results Component Value Date NA 140 08/05/2011 K 4.7 08/05/2011 CL 103 08/05/2011 CO2 24 08/05/2011 BUN 16 08/05/2011 CREATININE 0.79 08/05/2011 CALCIUM 10.0 08/05/2011 LABALBU 4.2 08/05/2011 Telemetry: no Assessment: 41yo woman, s/p bilateral mastectomies and tissue flexo operator placement. Increased pain this AM. Problems/Plan: There are no hospital problems to display for this patient. Reg diet Home meds PO/IV pain meds, could consider LOG BUYER Post op antibiotics D5 1/2 NS +K @ 75 Quinn Susan Canela MD 08/15/2011 6:38 Patient examined, above note reviewed. Agree with findings and plan as above. Asa Jauregui MD Robin Ching MD - 08/15/2011 0341 EDT Plastic Surgery Post-Op Note 08/15/2011 Admit Date: 08/14/2011 Hospital Stay: LOS: 1 day POD#0 s/p Bilateral mastectomy with expender placement S: Pt seen and examined at bedside, was asleep, awoke easily to voice. Pt's pain is marginally controlled. Denies SOB/n/v/c/d/fever/chills/headache. +Operative site pain, worse with movement or deep inspiration. O: Blood pressure 95/53, pulse 80, temperature 36.9 ??C (98.4 ??F), temperature source Tympanic, resp. rate 16, height 167.6 cm (66), weight 60.328 kg (133 lb), SpO2 98.00%. Exam: Gen: Alert, conversing fluently and responding appropriately, appears in moderate to severe pain, worse with deep breathing CV: HRR, no m/g/r Pulm: CTAB, no w/r/r Abd: Soft, NT, ND, +BS Exts: WWP, pulses 2+ x4. Wound: Dressings C/D/I B/L with L & R bulb drains each with moderate amt SS drainage. A/P: 41 y.o. female s/p Bilateral mastectomy with expender placement. Pain marginally controlled. ?? Pain control with hydromorphone PO/IV ?? Activity as tolerated ?? Regular diet ?? Cefazolin 1 g Q8H Robin Carroll MD 08/15/2011 3:41 #[id number] Nicolle Segundo RN - 08/14/2011 2207 EDT Camille- Lulú ROA attending to bedside to assess patient and talk with pt. Janeth Garcia RN - 08/14/2011 1052 EDT PT TO NUCLEAR MEDICINE AND RETURNED. Nicolle Vogel RN - 08/11/2011 1550 EDT Jia Dow has been instructed as follows regarding medication administration for the day of the scheduled procedure. Date of Surgery: 08/14/11 Instructions for Taking Medications Day of Surgery Medication Last Dose Hold DOS Take DOS FEXOFENADINE HCL (MART ORAL) Yes methylphenidate (CONCERTA) 27 mg CR tablet yes lisdexamfetamine (VYVANSE) 30 mg capsule Has not started yet buPROPion (WELLBUTRIN XL) 300 mg XL tablet Yes trazodone (DESYREL) 50 mg tablet Yes hs Hankins-3 Fatty Acids-Vitamin E (FISH OIL) 1,000 mg Cap 08/10/11 documented in this encounter H&P Notes Asa Jauregui MD - 08/14/2011 0928 EDT The preoperative history and physical which was performed within 30 days of this procedure has been reviewed and the clinically appropriate elements of the physical examination havebeen repeated. There are no changes to the documented history and physical or if so such changes aredocumented below ASA JAUREGUI MD 08/14/2011 9:28 Jia Dow Description: Female : 1970 08/04/2011 10:00 Office Visit Provider: ASA JAUREGUI MD Department: [facility] Surg-Oncology Consults Info Author Note Status Last Update User Last Update Date/Time Asa Jauregui MD Signed Asa Jauregui MD 08/06/2011 16:58 Consults DIVISION OF SURGICAL ONCOLOGY - [facility] CONSULTATION - 08/04/2011 PROBLEM: The patient is [...] options as well. Electronically Signed by Asa Jauregui MD 08/06/2011 16:58 Asa Jauregui MD - Asa Jauregui MD - CB Job ID: SM Doc ID: [id number] Ext Doc ID: [id number] cc: MD Cristina Ames MD Mark A Levine, MD Links Previous Version documented in this encounter Procedure Notes PLANT AND MACHINERY VALUER, SCAN 2 - 08/20/2011 1042 EDTAssociated Order(s): IMPLANT RECORD - SCANNED DMINISTRATOR, SCAN 2 - 08/20/2011 1042 EDTAssociated Order(s): ECG REPORT - SCANNED DMINISTRATOR, SCAN 2 - 08/20/2011 1042 EDTAssociated Order(s): ORDERS - SCANNED DMINISTRATOR, SCAN 2 - 08/18/2011 1329 EDTAssociated Order(s): IMPLANT RECORD - SCANNED documented in this encounter Nursing Notes PLANT AND MACHINERY VALUER, SCAN 2 - 08/18/2011 1310 EDT documented in this encounter OR Notes OR PreOp - PLANT AND MACHINERY VALUER, SCAN 2 - 08/20/2011 1042 EDT R Surgeon - Roman Chino MD - 08/19/2011 0734 EDT OPERATIVE REPORT SERVICE DATE: 08/14/2011 PREOPERATIVE DIAGNOSIS: Right breast cancer. POSTOPERATIVE DIAGNOSIS: Right breast cancer. PROCEDURE: Bilateral tissue flexo operator-based breast reconstructions following a right total mastectomywith right axillary sentinel lymph node and left total mastectomy by Dr Asa Jauregui. SURGEON: Roman Chino MD. ANESTHESIA: General endotracheal. INDICATIONS: Jia is a 41-year-old female with a right breast cancer who has elected to have a right mastectomy as well as prophylactic left mastectomy with immediate implant reconstruction. Risks and benefits have been thoroughly discussed. Signed informed [employer] consent and signed informed hospital consent are in the office and electronic health record, respectively. NARRATIVE: After Dr Jauregui completed his portion of the case, surgical hand-off was completed. I then carefully examined the patient's wounds. Two very healthy mastectomy flaps were noted. The SPY camera evaluation showed no areas of threatened tissue. Attention was then turned to the right where I carefully elevated the right pectoralis muscle off the 6th rib, fully releasing it from inferomedial to inferolateral. I took an 8 x 16 sheet of AlloDerm thick that was appropriately rehydrated in a 2-bath system and divided it in half. This was contoured to the surgical site and using 3-0 PDS attached to the tissue overlying the 7th rib and contoured appropriately to mesh the intramammary fold. Once this was complete, the superior sutures wereplaced but not tied, being secured with hemostats. The patient's submuscular base diameter was 12.7 cm, which was the exact width of a 350 mL low-height tissue flexo operator. The tissue flexo operator was evacuated of air, filled with 30 mL and placed. Then 2-0 PDS suture was used to secure the inferior tab to the tissue overlying the 7th rib, stabilizing it against the inferior margin. I then tied the previously placed sutures and used the port finder to sterilely access the port, 70 mL of normal saline were placed. This appeared to be an ideal fill volume to fill the space without overstretching the suture lines. The overlying skin was then temporarily stapled. Attention was turned to the left side. Here again, the pectoralis major was released from inferior to lateral. The second half AlloDerm was contoured similarly to the right and secured to the tissue overlying the 7th rib with buried, interrupted 3-0 PDS. Again the sutures were placed to the pectoralis and not tied. A second 350 mL low-heighttissue flexo operator flexo operator was evacuated and filled with 30 mL normal saline. This was placed. The inferior suture tab was secured inferiorly with 2-0 PDS to the tissue overlying the 7th rib. The superior sutures were then tied down, the port was accessed sterilely using the port finder and again 70 mL normal saline were placed. The overlying skin was stapled. The patient was placed in a sitting position, seen to have good symmetry. Both pockets were irrigated. Several small areas of bleeding were noted. The patient throughout the case had seemed to bleed somewhat more readily than was normal from the mastectomy flaps, which may simply be secondary to how robust these flaps were. After multiple irrigations and careful cauterization or clip placement, both pockets were seen to be dry. Two 15-Thai Meño drains were placed and secured with doubly thrown 3-0 nylon sutures. The areolar incisions werethen closed transversely with buried, interrupted 3-0 Monocryl and a running 4-0 Monocryl compression suture. Both suture lines were placed at 5 cm. Sterile tapes were placed. At the end of the case all needle, instruments and sponge counts were correct. Postoperative brief noted no unresolved deficien cies. Th rid step of the WHO checklist was completed. The patient was then awakened, extubated and transferred to the recovery room in stable condition having tolerated the procedure well. Yamileth ALUREANO# tabbed low height flexo operator Right: REF [id number] SN:[id number] Left: REF [id number] SN:[id number] Alloderm Thick; 8 x 16 cm Lot [id number] Roman Chino MD 12 14 AM / Roman Chino MD ss Confirmation: [id number] Dictation ID: [id number] R Surgeon - Asa Jauregui MD - 08/15/2011 0819 EDT OPERATIVE REPORT SERVICE DATE: 08/14/2011 PREOPERATIVE DIAGNOSIS: Right breast cancer. POSTOPERATIVE DIAGNOSIS: Right breast cancer. PROCEDURE: Injection for sentinel lymph node biopsy, bone marrow aspiration biopsy as part of clinical protocol number M12-009, right total mastectomy with right axillary sentinel lymph node biopsy, and left total mastectomy. SURGEON: Asa Jauregui MD SHOE SEWING MACHINE OPERATOR AND TENDER: Quinn Canela MD ANESTHESIA: General oral endotracheal tube. INDICATIONS: The patient is a 41-year-old woman who presents with a mass in the right breast at about the 3 o'clock location. Imaging showed a suspicious lesion, which was biopsied and found to be an invasive ductal cancer. The patient was clinically node negative, had no evidence of distant metastatic disease. The patient was a poor candidate based on the size and location of the tumor for breast-conserving therapy. She therefore decided to have a mastectomy on the right and a prophylactic mastectomy on the left and then have immediate reconstruction with implants. The patient also was a candidatefor sentinel node biopsy. She enrolled on the M12-009 trial as well. FINDINGS: The patient was injected by me at 10:35 a.m. in the nuclear medicine department. She was injected with 4 mL of unfiltered technetium sulfur colloid measuring 1 mCi into the breast parenchyma around the site of the tumor. An additional 0.05 mL containing 0.2 mCi of unfiltered technetium sulfur colloid was injected into the dermis of the skin at the site of the tumor at the same time. At 12:15 p.m. in the operating room, the patient was examined with a C- Trak gamma probe. Primary survey was performed that evaluated the supraclavicular, infraclavicular, internal mammary, intramammary, upper abdomen, and axillary regions. A single hot spot was found in the right axilla. Preincision count was17,346. Background was 979. At the time of surgery, a single specimen was removed from axillary level 1. This had a couple of lymph nodes adjacent to one another. Once this was removed, the count of the specimen was 36,155. No additional radioactive lymph nodes were noted in the axilla that had qdcyxo76% or greater than that. Bed count was 567. There were no other palpable nodes noted in the axilla.Stat touch scrape cytology was done on the sentinel node specimens. There was a total of four lymph nodes in the specimen. No metastatic disease was seen at any of these. NARRATIVE: The patient was brought to the operating room. Prior to anesthesia, the WHO checklist wasperformed. The patient was then placed in the supine position. General anesthesia with oral endotracheal tube was placed. The patient received 2 g of Ancef IV, had Venodyne boots placed, and had a Chamorro catheter placed. We then prepped the patient from the anterior superior iliac crest up to the neck area. The patient was then prepped and draped in sterile fashion. Prior to starting, we did confirm the patient and the procedure to be performed and that she received her antibiotics. We performed the bone marrow aspiration first. This was done on the right anterior iliac crest. We injected some 0.5% Marcaine. A small florian was made in the skin. We then advanced our bone marrow aspiration needle through the cortex of the bone marrow of the bone of the anterior superior iliac crest. The stylet was removed. A 6 mL syringe was attached and 5 mL of bone marrow was aspirated. This was injected into an appropriately labeled tube using an 18-gauge needle. The bone marrow aspiration biopsy needle was then removed. We used some Mastisol and dressed that with Steri-Strips. We then covered the abdomen with sterile blue towels. We then performed our right total mastectomy as our initial procedure. We injected some 0.5% Marcaine around the nipple-areolar area. We made a circumareolar incision using electrocautery. We then dissected in the plane between the subcu fat and the fibroglandular breast tissue. Superiorly, we raised this up to the level of the clavicle, medially to the sternum, inferiorly to the upper rectus muscle,and laterally out to the latissimus muscle. Vessels were clipped with hemoclips or clamped and tied with silk ties. When we dissected up into the axillary region, we used the gamma probe, which was ster ilely draped. We identified the radioactive lymph node. This was carefully dissected out. Vessels going into it were clipped with Hemoclips or cauterized with electrocautery. Once this sentinel node specimen was removed, a count of that node was taken as noted above. We placed the gamma probe back into the incision. No additional radioactive nodes were noted that had counts greater than 10%. The bed count was as noted above. We palpated the axilla. No other palpable nodes were noted. At this point, the sentinel node specimens were sent to pathology for stat touch prep cytology. We then completed the mastectomy. We removed the breast off the underlying pectoralis muscle, leaving the pectoralis fascia intact. Perforating vessels were clamped and tied with silk ties. Small vessels were coagulated. As we dissected out, we made sure that we removed the entire axillary tail region of the breast. Vessels going into this were clamped and tied with silk ties. Once this specimen was removed, it was marked, weighed, and sent to pathology for permanent evaluation. We copiously irrigated the wound with saline and bacitracin solution, made sure that we had good hemostasis. Once we did, we packed that woundand proceeded with our left mastectomy. Once again, we used a circumareolar incision after injectingsome 0.5% Marcaine. We raised flaps going in the plane between the subcu fat and the fibroglandular breast tissue using electrocautery. We dissected superiorly to the level just below the clavicle, medially to the sternum, inferiorly to the upper rectus muscle, and laterally out to the latissimus muscle. Bleeding was controlled with hemoclips or cauterized with cautery. Once we were down to the underlying pectoralis muscle, we removed the breast and subpectoral fat off the pectoralis muscle, leavingthe pectoralis fascia intact. Small perforating vessels were clipped with hemoclips. As we dissectedthis out into the axilla, we made sure we removed the entire axillary tail region of the breast. Vessels going into this were clamped and tied with silk ties. Once the specimen was removed, it was marked, weighed, and sent to pathology for permanent evaluation. That wound was then copiously irrigated with saline and bacitracin solution. At this point, once we had good hemostasis, an immediate reconstruction was performed by Dr Roman Chino and that will be dictated as a separate report. Unless otherwise noted, there were no complications, no blood loss, no cultures obtained, no specimens removed, and no drains retained. Asa Jauregui MD 04 44 PM / Asa Jauregui MD mt Confirmation: [id number] Dictation ID: [id number] cc:Jessi Avitia MD nesthesia Procedure Notes - PLANT AND MACHINERY VALUER, SCAN 2 - 08/14/20115 EDT R PreOp - PLANT AND MACHINERY VALUER, SCAN 2 - 08/14/2011 2123 EDT documented in this encounter Miscellaneous Notes Scanned Note-Null - PLANT AND MACHINERY VALUER, SCAN 2 - 08/20/2011 1042 EDT canned Note- Null - PLANT AND MACHINERY VALUER, SCAN 2 - 08/20/2011 1042 EDT canned Note- Null - PLANT AND MACHINERY VALUER, SCAN 2 - 08/20/2011 1042 EDT lan of Care - Litzy Hernandez RN - 08/16/2011 1233 EDT Problem: PAIN Goal: Patient???s Pain And Discomfort Are Adequately Managed Outcome: Met This Shift Active Multi-Disciplinary problems: PAIN [[id number]] (08/15/11) Data: los 2 for bilateral breast reconstruction with tissue expanders rated pain 6/10 Action: given oxy ir 15 mg this am Response: rated pain 5/10. 1255: given pain meds for 3/10 pain was given tylenol 1000mg, motrin 600mg, and oxy `15 mg LITZY HERNANDEZ RN 08/16/2011 12:30 lan of Shana - Melissa Christiansen RN - 08/16/2011 0538 EDT Problem: PAIN Goal: Patient???s Pain And Discomfort Are Adequately Managed Outcome: Ongoing Active Multi-Disciplinary problems: PAIN [[id number]] (08/15/11) Data: Upon start of shift patient reporting pain is starting to get back up there later stating Ican't move at all rating pain 10/10, at bedside. MD Gomez in department, made aware of patient's pain. Action: X1 Now order for 1mg IV Ativan received and administered, Medicated patient with PRN Oxy IR Q3H, scheduled Tylenol and Ibuprofen (See MAR). Response: Soon after IV Ativan administered patient able to fall asleep, per patient request, wanting to be awoken when PRN Oxy IR can be given, Q3H. Patient able to sleep in between nursing care/medication administration, states pain is better. Currently asleep at this time, call-castro within reach.Will continue to monitor and assess for adequate pain control. Melissa Christiansen RN 08/16/2011 5:31 lan of [facility] Laurel Moarn RN - 08/16/2011 0011 EDT Problem: PAIN Goal: Patient???s Pain And Discomfort Are Adequately Managed Intervention: Assess pain level Pain is to be assessed: admission, every shift, prior to medication administration, within two hoursafter pain medication administration, before transfer or discharge and every two hours while on LOG BUYER or epidural. Data: pt with c/o of 7 to 10 out of 10 pain this shift. Also with c/o shortness of breat after taking Dilaudid. Pt's brother is an MD and requested that we call the resident construction scheduler and ask for oxycodone for her instead. She is also resistant to ambulating in the hallways when it was suggested by nurse that this may help her breathing. Action: Notified Cuco Peterson of pt's request and oxycodone ordered. Pt did ambulate to hallway with two assist but continued to have great amounts of pain. Order later modified by Dr. Gomez to be increased from 5 mg to 15 mg. Pt refusing to take full dose and pain began to become out of control. Unable to get pt's pain to a tolerable level and Dr. Gomez ordered 50 mcg of Fentynl one time. Response: pt's pain relieved for a short time but began to worsen once again. Dr. Gomez notified once again of the worsening pain. Pt very emotional and seemingly unable to cope with the pain and discomfort and appears to become very anxious. in the room with pt attempting to keep her calm. Will continue to assess. Laurel Patino RN 08/15/2011 23:58 nesthesia Post-Eval - Patricia Dong - 08/15/2011 1440 EDT Post Anesthesia Evaluation Date of Service: 08/15/2011 The patient has been evaluated and assessed. If present, post anesthetic events are documented below. The last set of recorded vital signs and pain rating were reviewed: ,Numeric Pain Level (Scale 1-10): 4 Procedure detail: Anesthesia Type: General Level of Consciousness: Awake;Oriented Vital Signs: Stable Pulmonary Status: Coughing/deep breathing Post Op Pain: Taking PO/IV pain meds with good effect Ambulatory Status: Bedrest Additional follow up needed: No Perioperative events: General Events: None Patricia Dong 08/15/2011 14:40 lan of Shana - Jason. Ten Buenrostro RN - 08/15/2011 0920 EDT Problem: PAIN Goal: Patient???s Pain And Discomfort Are Adequately Managed Outcome: Ongoing Active Multi-Disciplinary problems: PAIN [[id number]] (08/15/11) Data: Patient awake in bed, complains of pain as excruciating in bilat breast surgical sites. Patient staets that the pain gets difficult to breathe. Action: Assessment completed. Patient medicated with PRN IV dilaudid. Patient finds it difficult to find achieve director long term care pain control but the pain medications help. Patient in room at bedsideattending to patient needs. Response: Will continue to monitor patient for relief of pain. Call light within reach. Sean Buenrostro RN 08/15/2011 9:19 lan of Care - Beatris Echevarria RN - 08/15/2011 0516 EDT Problem: PAIN Goal: Patient???s Pain And Discomfort Are Adequately Managed Intervention: Assess pain level Pain is to be assessed: admission, every shift, prior to medication administration, within two hoursafter pain medication administration, before transfer or discharge and every two hours while on LOG BUYER or epidural. Active Multi-Disciplinary problems: PAIN [[id number]] (08/15/11) Data: Pt c/o pain in bilat breast area. Drsgs CDI, JPx2 w/ SS drainage. Action: Pt medicated for pain with Scheduled and PRN pain meds, see MAR. Repositioning encouraged for comfort, pt declined. Bilat upper extremities supported on pillows. Pt encouraged to call for assistance if pain not controlled, able to make needs known. Response: Pt was able to sleep in between pain treatments. Will monitor. Beatris Echevarria RN 08/15/2011 5:06 nesthesia Post-Eval - OberAraceli gardiner - 08/14/20112232 EDT Post Anesthesia Evaluation Note Date of Service: 08/14/2011 Jia Dow, a 41 y.o. year old female has received General Anesthesia She has been evaluated, assessed and discharged from anesthesia care with stable cardiorespiratory function and alert mental status. The last set of recorded vital signs and pain rating were reviewed: Temp: 36.8 ??C (98.2 ??F) (08/14/112229), Heart Rate: 61 BPM (08/14/112229), BP: 104/59 mmHg (08/14/112229), Resp: 12 (08/14/112229), SpO2: 100 % (08/14/112229),Numeric Pain Level (Scale 1-10): 6 Jia Dow participated in this evaluation unless otherwise noted. Her pain, nausea and vomiting have been managed and her body temperature and fluid balance have been restored. Additional monitoring and assessment needs have been addressed. If present, any postoperative events are documented below. If the regional block for postoperative analgesia was intended to last greater than 48 hours, Avelina Dow will be followed by the Acute Pain Service. ARACELI ANNE MD 08/14/2011 22:33 rief Op Note - Robin Carroll MD - 08/14/2011 2123 EDT Brief Post-Op Note Date of Surgery: 08/14/2011 Surgeon: Lulú Pre-Op Diagnosis: Breast cancer Post-Op Diagnosis: Same Procedure(s): Bilateral mastectomy with expender placement Findings: None Anesthesia Type: General Estimated Blood Loss: Unless otherwise noted, there was no blood loss, specimens removed, cultures obtained, or drains retained. The estimated blood loss was 250 mL Fluids: Jia Dow received Crystalloids 3 L of fluid replacement. Urine Output: 200 mL Specimens/Cultures: Right sentinel node, Right and left breast tissue was sent for Routine Pathology Complications: None Disposition and Condition: Jia Dow was sent to PACU in Stable condition. Robin Carroll MD 08/14/2011 21:23 [id number] rief Op Note - Quinn Canela MD - 08/14/2011 1610 EDT BRIEF OP NOTE Surgeon: Asa Jauregui MD Licensing And Registration Director: Quinn Canela MD Pre-op diagnosis: Right breast cancer Post-op diagnosis: Same Procedure: Bilateral mastectomy. Right sentinel node biopsy. Anesth: General Findings: One right sentinel node, negative EBL: minimal IVF: Per Plastics note UOP: Per plastics Specimen: Right and left breast. Right sentinel node Cultures: None Foreign Material Retained: none Complications: none Dispo: Remains in OR with plastics uQinn Canela MD 08/14/2011 16:11 documented in this encounter Plan of Treatment Upcoming Encounters Date Type Specialty Care Team Description 12/16/2021 Appointment Infusion Therapy 04/15/2022 Office Visit Hematology and Oncology Popyp Felton PA-C [address] [facility] [address] [place], [place] [phone] (Wo rk) 05/30/2022 Office Visit Surgical Oncology Asa Jauregui MD [address] [facility] [address] [place], [place] [phone] (Wo rk) documented as of this encounter Procedures Procedure Name Priority Date/Time Associated Comments Diagnosis IMPLANT RECORD - 08/20/2011 10:42 Results for this SCANNED EDT procedure are i n the results section. ECG REPORT - SCANNED 08/20/2011 10:42 Res ults for this EDT procedure are i n the results section. ORDERS - SCANNED 08/20/2011 10:42 Results for this EDT procedure are i n the results section. IMPLANT RECORD - 08/18/2011 13:29 Results for this SCANNED EDT procedure are i n the results section. COMPLETE BLOOD COUNT Routine 08/16/2011 6:27 Resu lts for this AND DIFFERENTIAL EDT procedure a re in the results section. BUN Routine 08/16/2011 6:27 Results for this EDT procedure are i n the results section. CREATININE Routine 08/16/2011 6:27 Results for this EDT procedure are i n the results section. ELECTROLYTES Routine 08/16/2011 6:27 Results for this EDT procedure are i n the results section. SCREENING GLUCOSE Routine 08/15/2011 6:46 Results for this EDT procedure are i n the results section. COMPLETE BLOOD COUNT Routine 08/15/2011 6:46 Resu lts for this AND DIFFERENTIAL EDT procedure a re in the results section. BUN Routine 08/15/2011 6:46 Results for this EDT procedure are i n the results section. CREATININE Routine 08/15/2011 6:46 Results for this EDT procedure are i n the results section. ELECTROLYTES Routine 08/15/2011 6:46 Results for this EDT procedure are i n the results section. documented in this encounter Results IMPLANT RECORD - SCANNED (08/20/2011 10:42 EDT) Specimen Narrative This result has an attachment that is no t available. Transcriptions PLANT AND MACHINERY VALUER, SCAN 2 - 08/20/2011 10:42 EDT ECG REPORT - SCANNED (08/20/2011 10:42 EDT) Specimen Narrative This result has an attachment that is no t available. Transcriptions PLANT AND MACHINERY VALUER, SCAN 2 - 08/20/2011 10:42 EDT ORDERS - SCANNED (08/20/2011 10:42 EDT) Specimen Narrative This result has an attachment that is no t available. Transcriptions PLANT AND MACHINERY VALUER, SCAN 2 - 08/20/2011 10:42 EDT IMPLANT RECORD - SCANNED (08/18/2011 13:29 EDT) Specimen Narrative This result has an attachment that is no t available. Transcriptions PLANT AND MACHINERY VALUER, SCAN 2 - 08/18/2011 13:29 EDT (ABNORMAL) HEMAGRAM AND DIFFERENTIAL (08/16/2011 6:27 EDT) Pathologist Sig nature WBC 6.07 4.0 - 12.4 K/cmm [facility] RBC 3.40 (L) 3.86 - 5.04 M/cmm [facility] Hemoglobin 10.6 (L) 11.6 - 15.2 gm/dl [facility] HCT 31.1 (L) 34.9 - 44.4 % [facility] MCV 91 81 - 98 fl [facility] MCH 31.1 26.7 - 33.3 pg [facility] MCHC 34.1 32.1 - 35.9 gm/dl [facility] PLT 158 141 - 320 K/cmm [facility] RDW-CV 12.8 11.7 - 14.6 % [facility] Neutrophils 54.3 45.5 - 79.7 % [facility] Lymphocytes 35.8 15.0 - 46.8 % [facility] Monocytes 9.1 1.8 - 12.0 % [facility] Eosinophils 0.5 (L) 0.6 - 6.9 % [facility] Basophils 0.3 0.2 - 1.4 % [facility] ABS Neutrophils 3.29 2.20 - 8.85 K/cmm [facility] ABS Lymphs 2.17 1.09 - 3.30 K/cmm [facility] ABS Monocytes 0.55 0.1 - 0.8 K/cmm [facility] ABS Eosinophils 0.03 0.03 - 0.61 K/cmm [facility] ABS Basophils 0.02 0.01 - 0.11 K/cmm [facility] Type of Diff: Automated [facility] Specimen Blood specimen (specimen) Performing Organization Address [facility]/ZIP Code Phon e Number [facility] [address] [place] [address] SERVICES [facility] [address] [place] [address] CREATININE (08/16/2011 6:27 EDT) Pathologist Sig nature Creatinine 0.78 0.52 - 1.04 mg/dl [facility] GFR, Calculated >60 >60 ml/min/1.73m2 [facility] Specimen Blood specimen (specimen) Performing Organization Address [facility]/ZIP Code Phon e Number [facility] [address] [place] [address] SERVICES [facility] [address] [place] [address] (ABNORMAL) BUN (08/16/2011 6:27 EDT) Pathologist Sig nature BUN 7 (L) 10 - 26 mg/dl [facility] Specimen Blood specimen (specimen) Performing Organization Address [facility]/ZIP [facility] Phon e Number [facility] [address] [place] [address] SERVICES [facility] [address] [place] [address] ELECTROLYTES (08/16/2011 6:27 EDT) Pathologist Sig nature Sodium 137 136 - 145 mEq/L [facility] Potassium 3.8 3.5 - 5.0 mEq/L [facility] Chloride 105 96 - 110 mEq/L [facility] CO2 27 24 - 32 mEq/L [facility] Specimen Blood specimen (specimen) Performing Organization Address City/[facility] Code Phon e Number [facility] [address] [place] [address] SERVICES [facility] [address] [place] [address] (ABNORMAL) HEMAGRAM AND DIFFERENTIAL (08/15/2011 6:46 EDT) Pathologist Sig nature WBC 7.19 4.0 - 12.4 K/cmm [facility] RBC 3.46 (L) 3.86 - 5.04 M/cmm [facility] Hemoglobin 11.0 (L) 11.6 - 15.2 gm/dl [facility] HCT 31.5 (L) 34.9 - 44.4 % [facility] MCV 91 81 - 98 fl [facility] MCH 31.8 26.7 - 33.3 pg [facility] MCHC 34.9 32.1 - 35.9 gm/dl [facility] PLT 163 141 - 320 K/cmm [facility] RDW-CV 13.0 11.7 - 14.6 % [facility] Neutrophils 57.7 45.5 - 79.7 % [facility] Lymphocytes 30.8 15.0 - 46.8 % [facility] Monocytes 10.9 1.8 - 12.0 % [facility] Eosinophils 0.3 (L) 0.6 - 6.9 % [facility] Basophils 0.3 0.2 - 1.4 % [facility] ABS Neutrophils 4.15 2.20 - 8.85 K/cmm [facility] ABS Lymphs 2.22 1.09 - 3.30 K/cmm [facility] ABS Monocytes 0.79 0.1 - 0.8 K/cmm [facility] ABS Eosinophils 0.02 (L) 0.03 - 0.61 K/cmm [facility] ABS Basophils 0.02 0.01 - 0.11 K/cmm [facility] Type of Diff: Automated [facility] Specimen Blood specimen (specimen) Performing Organization Address City/[facility]/ZIP Code Phon e Number [facility] [address] [place] [address] SERVICES [facility] [address] [place] [address] CREATININE (08/15/2011 6:46 EDT) Pathologist Sig nature Creatinine 0.65 0.52 - 1.04 mg/dl [facility] GFR, Calculated >60 >60 ml/min/1.73m2 [facility] Specimen Blood specimen (specimen) Performing Organization Address [facility]/ZIP [facility] Phon e Number [facility] [address] [place] [address] SERVICES [facility] [address] [place] [address] BUN (08/15/2011 6:46 EDT) Pathologist Sig nature BUN 11 10 - 26 mg/dl [facility] Specimen Blood specimen (specimen) Performing Organization Address [facility] Phon e Number [facility] [address] [place] [address] SERVICES [facility] [address] [place] [address] (ABNORMAL) ELECTROLYTES (08/15/2011 6:46 EDT) Pathologist Sig nature Sodium 134 (L) 136 - 145 mEq/L [facility] Potassium 4.1 3.5 - 5.0 mEq/L [facility] Chloride 105 96 - 110 mEq/L [facility] CO2 23 (L) 24 - 32 mEq/L [facility] Specimen Blood specimen (specimen) Performing Organization Address [facility]/ZIP Code Phon e Number [facility] [address] [place] [address] SERVICES [facility] [address] [place] [address] SCREENING GLUCOSE (08/15/2011 6:46 EDT) Pathologist Sig [facility] Glucose, Screening 87 70 - 100 mg/dl [facility] Specimen Blood specimen (specimen) Performing Organization Address [facility] Phon e Number [facility] [address] [place] [address] SERVICES [facility] [address] [place] [address] documented in this encounter Visit Diagnoses Diagnosis Breast cancer (HCC-CMS) (HCC) Malignant neoplasm of breast (female), u nspecified site documented in this encounter Administered Medications Inactive Administered Medications - up to 3 most recent administrations Medication Order MAR Action Action Date Dose Rate Site acetaminophen (TYLENOL) tablet Given 08/16/2011 12:45 EDT 1,000 mg 1,000 mg 1,000 mg, oral, EVERY 6 HOURS, First dose on Thu08/15/11 at 0000, Until Discontinued, Routine, On Unit Given 08/16/2011 6:50 EDT 1,000 mg Given 08/16/2011 0:29 EDT 1,000 mg ceFAZolin (ANCEF) 1,000 mg in sodium chloride Given 8:23 EDT 1,000 mg 0.9 % 50 mL IVPB 1,000 mg, intravenous, Administer over 30 Minutes, EVERY 8 HOURS, 42 doses, First dose on Thu08/15/11 at 0000, Last dose on Thu08/28/11 at 1600, Routine Given 08/16/2011 7:59 EDT 1,000 mg Given 08/16/2011 0:29 EDT 1,000 mg ceFAZolin (ANCEF) syringe 1 g Given by Other 08/14/2011 16:30 EDT 1 g 1 g, intravenous, Administer over 10 Minutes, NOW X1, 1 dose, On Luz 08/14/11 at 1700, Routine ceFAZolin (ANCEF) syringe 1 g Given by Other 08/14/2011 20:28 EDT 1 g 1 g, intravenous, Administer over 10 Minutes, NOW X1, 1 dose, On Luz 08/14/11 at 2045, Routine ceFAZolin (ANCEF) syringe 2 g Given by Other 08/14/2011 12:19 EDT 2 g 2 g, intravenous, Administer over 10 Minutes, PRE-OP ONCE, 1 dose, On Luz 08/14/11 at 1100, Routine, Pre Op Day of Surgery dextrose 5 % and 0.45 % NaCl with Rate Documented 08/15/2011 16:44 EDT 75 mL/hr KCl 20 mEq/L infusion at 75 mL/hr, intravenous, CONTINUOUS, Starting on Luz 08/14/11 at 2215, Until 08/16/11 at 0407, Routine, On Unit Rate Documented 08/15/2011 9:15 EDT 75 mL/hr New Bag 08/15/2011 0:50 EDT 75 mL/hr DIAZepam (VALIUM) tablet 5 mg Given 08/16/2011 7:59 EDT 5 mg 5 mg, oral, EVERY 6 HOURS PRN, Starting on 08/16/11 at 0352, Until 08/16/11 at 1730, Anxiety, Sleep, Agitation, Routine docusate sodium (COLACE) capsule 100 mg Given 08/16/2011 8:03 EDT 100 mg 100 mg, oral, DAILY, First dose on Thu08/15/11 at 2000, Until Discontinued, Routine Given 08/15/2011 21:37 EDT 100 mg fentanyl citrate (PF) 50 mcg/mL injection Given 08/14/2011 21:59 EDT 50 mcg 25-100 mcg 25-100 mcg, intravenous, EVERY 5 MIN PRN, Starting on Luz 08/14/11 at 2105, Until Luz 08/14/11 at 2337, Pain, Routine, Recovery (only) Given 08/14/2011 21:47 EDT 50 mcg fentanyl citrate (PF) 50 mcg/mL injection 50 Given 08/15/2011 23 :08 EDT 50 mcg mcg 50 mcg, intravenous, NOW X1, 1 dose, On Thu08/15/11 at 2315, Routine HYDROmorphone (DILAUDID) tablet 2 mg Given 08/14/2011 22:06 EDT 2 mg 2 mg, oral, PRN, 2 doses, Starting on Luz 08/14/11 at 2105, Until Luz 08/14/11 at 2337, Pain, Routine, Recovery (only) HYDROmorphone (DILAUDID) tablet 2-4 mg Given 08/15/2011 17:37 EDT 4 mg 2-4 mg, oral, EVERY 3 HOURS PRN, Starting on Luz 08/14/11 at 2340, Until 08/16/11 at 1730, Pain, Routine, On Unit Given 08/15/2011 13:06 EDT 4 mg Given 08/15/2011 10:08 EDT 4 mg HYDROmorphone (PF) (DILAUDID) 1 mg/mL injection Given 08/15/2011 14:53 EDT 0.6 mg 0.2-0.6 mg 0.2-0.6 mg, intravenous, EVERY 4 HOURS PRN, Starting on Luz 08/14/11 at 2340, Until Thu08/15/11 at 1927, Pain, Routine Given 08/15/2011 9:02 EDT 0.6 mg Given 08/15/2011 5:00 EDT 0.6 mg HYDROmorphone (PF) (DILAUDID) 1 mg/mL injection Given 08/14/2011 22:28 EDT 0.5 mg 0.2-1 mg 0.2-1 mg, intravenous, EVERY 10 MINUTES PRN, Starting on Luz 08/14/11 at 2105, Until Luz 08/14/11 at 2337, Pain, Routine, Recovery (only) Given 08/14/2011 21:59 EDT 0.5 mg Given 08/14/2011 21:47 EDT 0.5 mg ibuprofen (MOTRIN) tablet 600 mg Given 08/16/2011 12:45 EDT 600 mg 600 mg, oral, EVERY 6 HOURS, First dose on 08/16/11 at 0045, Until Discontinued, Routine Given 08/16/2011 6:50 EDT 600 mg Given 08/16/2011 1:34 EDT 600 mg lactated ringers (LR) infusion New Bag 08/14/2011 10:38 EDT 25 mL/hr at 75 mL/hr, intravenous, CONTINUOUS, Starting on Luz 08/14/11 at 1100, Until Ulz 08/14/11 at 2340, Routine, Pre-Op DOS Rx Approved lorazepam (ATIVAN) 2 mg/mL injection 1 dose, Starting on 08/16/11 at 0019, Until Sat 07/25 05/04 at 0030 lorazepam (ATIVAN) injection 1 mg Given 08/16/2011 0:30 EDT 1 mg 1 mg, intravenous, NOW X1, 1 dose, On 08/16/11 at 0015, Routine oxycodone (ROXICODONE) immediate release tablet 5 Given 08/15/2011 21:36 EDT 5 mg mg 5 mg, oral, NOW X1, 1 dose, On Thu08/15/11 at 2145, Routine oxycodone (ROXICODONE) immediate release tablet Given 08/16/2011 14:57 EDT 10 mg 5-15 mg 5-15 mg, oral, EVERY 3 HOURS PRN, Starting on 08/15/11 at 1928, Until 08/16/11 at 1730, Pain, Routine Given 08/16/2011 12:45 EDT 15 mg Given 08/16/2011 9:12 EDT 15 mg senna (SENOKOT) tablet 1 Tab Given 08/15/2011 21:37 EDT 1 Tablet 1 Tablet, oral, AT BEDTIME, First dose on Thu08/15/11 at 2100, Until Discontinued, Routine documented in this encounter Discontinued Medications Medication Sig Discontinue Reason Start Date End Date clonAZEPAM (KLONOPIN) 0.5 Take 1 Tab by mouth Error 06/12/19 11 08/11/2011 mg tablet 2 times daily as needed. LEVONORGESTREL-ETH ESTRA Take by mouth. Error 0 08/11/2011 (AVIANE ORAL) NORETH A-ET ESTRA/FE Take by mouth Error 2011 FUMARATE (LOESTRIN 24 FE daily. ORAL) documented as of this encounter Historical Medications This list may reflect changes made after this encounter. Medication Sig Dispensed Refills Start Date End Date FEXOFENADINE HCL ([facility] Take by mouth as 0 09/19/2014 ORAL) needed. added in this encounter Active and Recently Administered Medications Times are shown in EDT. Scheduled Medication Order 08/14/2011 08/15/2011 08/16/2011 acetaminophen (TYLENOL) tablet 1,000 mg 0050 (Given - Provider: Beatris Echevarria RN)0708 (Given - Provider: Beatris Echevarria RN)1202 (Given - Provider: Jason. Ten Buenrostro, LAMAR)1737 (Given - Provider: Laurel Patino, LAMAR) 0029 (Given - Provider: Melissa Christiansen, LAMAR)0650 (Given - Provider: Melissa Christiansen, LAMAR)1245 (Given - Provider: Litzy Hernandez, LAMAR) 1,000 mg, Oral, EVERY 6 HOURS, First dos e on Thu08/15/11 at 0000, Until Discontinued ceFAZolin (ANCEF) 1,000 mg in sodium chloride 0.9 % 50 mL IV PB (CANCELED) 0050 (Given - Provider: Beatris Echevarria RN)0902 (Given - Provider: Jason. Ten Buenrostro, LAMAR)1545 (Given - Provider: Laurel Patino, LAMAR) 0029 (Given - Provider: Melissa Christiansen, LAMAR)0759 (Given - Provider: Litzy Hernandez, LAMAR)0823 (Given - Provider: Brenda Lee - Comment: asked to hang new antibiotic bag by LAMAR Hernandez as previous bag hung of abx was leaking.) 1,000 mg, Intravenous, for 30 Minutes, E VERY 8 HOURS, 42 doses, First dose on 08/15/11 at 0000, Last dose on Luz 08/28/11 at 1600 ceFAZolin (ANCEF) syringe 1 g (COMPLETED) 1630 (Given by Other - Provider: Francisca Phelps RN - Comment: Given in OR by Patricia Dong ) 1 g, Intravenous, for 10 Minutes, NOW X1, 1 dose, Luz 08/14/11 at 1700 ceFAZolin (ANCEF) syringe 1 g (COMPLETED) 2028 (Given by Other - Provider: Erica Wang RN - Comment: given by Jose Eduardo, [facility]) 1 g, Intravenous, for 10 Minutes, NOW X1, 1 dose, Luz 08/14/11 at 2045 ceFAZolin (ANCEF) syringe 2 g (COMPLETED) 1219 (Given by Other - Provider: Francisca Phelps RN - Comment: Given in OR by Aide Rios MD) 2 g, Intravenous, for 10 Minutes, PRE-OP ONCE, 1 dose, Luz at 1100 docusate sodium (COLACE) capsule 100 mg (CANCELED) 2137 (Given - Provider: Laurel Patino RN) 0803 (Given - Provider: Litzy Hernandez RN) 100 mg, Oral, DAILY, First dose on Thu08/15/11 at 2000, Until Di scontinued fentanyl citrate (PF) 50 mcg/mL injection 50 mcg (COMPLETED) 2308 (Given - Provider: Laurel Patino RN) 50 mcg, intravenous, NOW X1, 1 dose, Thu08/15/11 at 2315 ibuprofen (MOTRIN) tablet 600 mg (CANCELED) 0134 (Given - Provider: Melissa Christiansen, LAMAR)0650 (Given - Provider: Melissa Christiansen, LAMAR)1245 (Given - Provider: Litzy Hernandez RN) 600 mg, Oral, EVERY 6 HOURS, First dose on 6/23/12 at 0045, Until Discontinued lorazepam (ATIVAN) injection 1 mg (COMPLETED) 0030 (Given - Provider: Melissa Christiansen, LAMAR) 1 mg, intravenous, NOW X1, 1 dose, 08/16/11 at 0015 oxycodone (ROXICODONE) immediate release tablet 5 mg (COMPLE ALEXANDRA) 2135 (Given - Provider: Laurel Patino, LAMAR) 5 mg, oral, NOW X1, 1 dose, Thu08/15/11 at 2145 senna (SENOKOT) tablet 1 Tab 2136 (Given - Provi annabelle: Laurel Patino, LAMAR) 1 Tab, Oral, AT BEDTIME, First dose on Thu08/15/11 at 2100, Until Discontinued Continuous Medication Order 08/14/2011 08/15/2011 08/16/2011 dextrose 5 % and 0.45 % NaCl with KCl 20 mEq/L infusion (CAN CELED) 0050 (New Bag - Provider: Beatris Echevarria, LAMAR)0915 (Rate Documented - Provider: Jason. Ten Buenrostro RN)1644 (Rate Documented - Provider: Laurel Patino, LAMAR) at 75 mL/hr, Intravenous, CONTINUOUS, St arting Luz 08/14/11 at 2215, Until 08/16/11 at 0407 lactated ringers (LR) infusion (CANCELED) 1038 (New Ba g - Provider: Janeth Benavides, LAMAR)1359 (Due) at 75 mL/hr, Intravenous, CONTINUOUS, St arting Luz 08/14/11 at 1100, Until Luz 08/14/11 at 2340 PRN Medication Order 08/14/2011 08/15/2011 08/16/2011 DIAZepam (VALIUM) tablet 5 mg (CANCELED) 0759 (Given - Provider: Litzy Hernandez, LAMAR)0803 (Not Given - Provider: Litzy Hernandez RN - Reason: Other - Comment: already given was double scanned) 5 mg, Oral, EVERY 6 HOURS PRN, Starting 08/16/11 at 0352, Until 08/16/11 at 1730, Anxiety, Sleep, Agitation fentanyl citrate (PF) 50 mcg/mL injection 25-100 mcg ( CANCELED) 2146 (Given - Provider: Nicolle Simmons, LAMAR)2158 (Given - Provider: Nicolle Simmons RN) 25-100 mcg, Intravenous, EVERY 5 MIN PRN , Starting Luz 08/14/11 at 2105, Until Luz 08/14/11 at 2337, Pain HYDROmorphone (DILAUDID) tablet 2 mg (CANCELED) 220 ( Given - Provider: Nicolle Simmons RN) 2 mg, Oral, PRN, 2 doses, Starting Luz at 2105, Until Luz 08/14/11 at 2337, Pain HYDROmorphone (DILAUDID) tablet 2-4 mg (CANCELED) 0050 (Given - Provider: Beatris Echevarria RN)0355 (Given - Provider: Beatris Echevarria RN)0709 (Given - Provider: Beatris Echevarria RN)1008 (Given - Provider: Jason. Ten Buenrostro RN)1306 (Given - Provider: Jason. Ten Buenrostro RN) 2-4 mg, Oral, EVERY 3 HOURS PRN, Startin g Luz 08/14/11 at 2340, Until 08/16/11 at 1730, Pain 1737 (Given - Provider: Laurel Patino RN) HYDROmorphone (PF) (DILAUDID) 1 mg/mL injection 0.2-0.6 mg ( CANCELED) 0051 (Given - Provider: Beatris Echevarria RN)0500 (Given - Provider: Beatris Echevarria RN)0902 (Given - Provider: Jason. Ten Buenrostro RN)1453 (Given - Provider: Jason. Ten Buenrostro RN) 0.2-0.6 mg, Intravenous, EVERY 4 HOURS P RN, Starting Luz 08/14/11 at 2340, Until Thu08/15/11 at 1927, Pain HYDROmorphone (PF) (DILAUDID) 1 mg/mL injection 0.2-1 mg (CANCELED) 2146 (Given - Provider: Nicolle Simmons RN)2158 (Given - Provider: Nicolle Simmons RN)2208 (Canceled Entry - Provider: Nicolle Simmons RN)222 (Given - Provider: Nicolle Simmons RN) 0.2-1 mg, Intravenous, EVERY 10 MINUTES PRN, Starting Luz 08/14/11 at 2105, Until Luz 08/14/11 at 2337, Pain oxycodone (ROXICODONE) immediate release tablet 5-15 mg 1939 (Given - Provider: Laurel Patino, LAMAR)2006 (Given - Provider: Coleen Palomino RN)2228 (Given - Provider: Laurel Patino RN) 0136 (Given - Provider: Melissa Christiansen, LAMAR)0436 (Given - Provider: Melissa Christiansen, LAMAR)0912 (Given - Provider: Litzy Hernandez, LAMAR)1245 (Given - Provider: Litzy Hernandez RN)1457 (Given - Provider: Litzy Hernandez RN) 5-15 mg, Oral, EVERY 3 HOURS PRN, Starti ng Fri 08/15/11 at 1928, Until 08/16/11 at 1730, Pain documented in this encounter Orders Medications Ordered That Might Not Have Count Last Ord ered Date First Ordered Date Been Administered fentanyl citrate (PF) 50 mcg/mL injection 1 2011 25-100 mcg bisacodyl (DULCOLAX) suppository 10 mg 1 2 diphenhydrAMINE (BENADRYL) injection 25 mg 1 08/14 fentanyl citrate (PF) 50 mcg/mL injection 1 2011 HYDROmorphone (PF) (DILAUDID) 1 mg/mL 1 08/15/2011 injection 0.5 mg magnesium hydroxide (MILK OF MAGNESIA) 400 1 08/14 mg/5 mL suspension 30 mL oxycodone (ROXICODONE) immediate release 2 012 08/14/2011 tablet 5 mg acetaminophen (TYLENOL) tablet 1,000 mg 1 08/14/19 12 atropine 0.1 mg/mL 10 mL syringe 0.5 mg 1 08/14/19 12 [id number] 1 08/14/2011 (CEPACOL SORE THROAT) 15-3.6 mg lozenge 1 Lozenge buPROPion (WELLBUTRIN XL) XL tablet 300 mg 1 08/13 diphenhydrAMINE (BENADRYL) injection 6.25 1 2011 mg fexofenadine ([facility]) 12 hr tablet 180 mg 1 08/13 lisdexamfetamine (VYVANSE) capsule 30 mg 1 012 meperidine (PF) (DEMEROL) 25 mg/0.5 mL 1 2 injection 12.5 mg methylphenidate (CONCERTA) CR tablet 27 mg 1 08/13 midazolam (VERSED) injection 0.5-2 mg 1 08/14/2011 naloxone (NARCAN) injection 0.2 mg 1 08/14/2011 ondansetron (PF) (ZOFRAN) injection 2 mg 1 012 ondansetron (PF) (ZOFRAN) injection 2-4 mg 1 08/13 trazodone (DESYREL) tablet 75 mg 1 08/14/2011 Nursing Count Last Ordered Date First Ordered Date INSERT CHAMORRO CATHETER 1 08/14/2011 INSERT PERIPHERAL IV 1 08/14/[address] SEQUENTIAL COMPRESSION DEVICE 1 08/14/2011 Admission Count Last Ordered Date First Ordered Date STATUS: INPATIENT DOSA/DOPA DAY OF 1 08/14/2011 SURGERY/PROCEDURE ADMISSION Transfer Count Last Ordered Date First Ordered Date NOTIFY PPS PATIENT TRANSFERRED OUT OF PACU 1 08/13 Discharge Count Last Ordered Date First Ordered Date DISCHARGE PATIENT 1 08/16/2011 documented in this encounter 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
--- OUTSIDE RECORDS SUMMARY | 2021-11-29 00:32 | XMS_ITS | Encounter Summary ---
:[address] [facility] Address [address] [place] [address] Care Team Providers Name Role Phone Jimbo Davey MD Primary Care Provider Encounter Details Date Type Department Care Team Description 08/14/2011 Results Only [facility] Asa Jauregui MD Surgical Oncology - [address], [address], [address] [place] [address] [place], [place] [phone] (Wo rk) Social History Tobacco Use Types [...] Hematology and Oncology Poppy Felton PA-C 111 [facility], [facility] [place] [facility] 2 [place], [place] [phone] (Wo rk) 05/30/2022 Office Visit Surgical Oncology Asa Jauregui MD [address] [phone] (Wo rk) documented as of this encounter Procedures Procedure Name Priority Date/Time Associated Diagnosis Comme nts SURGICAL PATHOLOGY Routine 08/14/2011 0:00 EDT Re sults for this procedure are i n the results section. documented in this encounter Results SURGICAL PATHOLOGY (08/14/2011 0:00 EDT) Pathology SURGICAL PATHOLOGY REPORT [facility] Report: LAB Reports generated via electronic interface contain masha ginal data; however they are lacking the format of the original re port. Caution should be taken when reading/interpreting unfo rmatted reports. Name: ? ROSMERY, JIA D ? Accession #: ? [id number] ? : ? 1970 (Age: 41) ??F ?Collect Da te: ? 08/14/2011 ? Location: ? B006 ? Receive Date: ? 012 ? Provider: ASA JAUREGUI MD Copy to: JIMBO DAVEY MD ? Final Pathologic Diagnosis: ? SYNOPTIC DIAGNOSIS FOR MALIGNANT BREAST TUMORS ? Laterality: ?Right ?AJCC (7th edition): pT1c, pN0(sn) Specimen: ?Total mastectomy with sentinel ly mph node biopsy Tumor Type: ?Invasive ductal Tumor Size: ?1.2 cm in greatest dimension Tumor Location: ? Upper inner quadrant at 3 o'cloc k Norris Combined Histologic Scores: ? Tubules: ?2 ? Nuclei: ?2 ? Mitotic Rate: ? 1 (actual count 7/10 HPF with field diameter of 0.54 mm) ? Total: ?5 Differentiation: ? Well Margins: ?Negative (7.0 mm from the posterio r margin) ? DCIS: ? Cribriform pattern, with focal and central comedo-type necrosis, intermediate (II) ?nuclear grade ? % DCIS: ?Not applicable DCIS margins: ?Negative (6.0 mm from closest margin, posterior) LVI: ? Not identified Lymph nodes: ?0/4 (positive/total count) ? ER/ TX: ?ER positi ve (greater than 90%); TX positive (greater than 90%) ([id number]) Her2/jason: ? See separate report ? Final Pathologic Diagnosis: ? A. ??Lymph nodes, [place] [id number], excision: ? 1. ??Four lymph nodes negative for malignancy ( 0/4). B. ??Breast, right, total mastectomy: ? 1. ??Adenocarcinoma, invasive, ductal type, wel l-differentiated. See comment. ?- Specimen integrity: Intact. ? - Tumor location: Upper inner quadrant . ?- Tumor position: 3 o'clock . ?- Tumor focality: Single focus of invas axel carcinoma. ?- Tumor measu res 1.2 cm in greatest dimension (AJCC: pT1c, pN0[sn]). ?- Surgical resection margins nega tive; invasive tumor present: ? - 7.0 mm from posterior margin. ? - 8.0 mm from anterior margin. ? - Lymphovascular invasion is not id entified. ? 2. ??Ductal carcinoma in situ (DCIS), cribriform pattern, with focal and with central ??comedo ?type necrosis, intermediate (II) nuclear grade. ? - Area of involvement by DCIS is appro ximately 1.2 cm. ? - Surgical resection margins negative; DCIS present: ? - 6.0 mm from posterior margin. ? - 7.0 mm from the anterior margin. ? 3. ??Lobular carcinoma in situ (LCIS): Not iden tified. ? 4. ??Fibrocystic changes including: ?- Atypical ductal hyperplasia. ? - Adenosis. ? - Apocrine metaplasia. ? - Interlobular fibrosis. 5. ??Skin: Negative for malignancy. 6. ??Nipple: Negative for malignancy. 7. ??Skeletal muscle: not present. 8. ??Prior biopsy site identified. ? C. ??Breast, left, total mastectomy: ? 1. ??Fibrocystic changes including: ?- Usual ductal hyperplasia. ?- Microcysts. ?- Adenosis. ?- Intralobular fibrosis. ?? Comment: ? Immunohistochemical stains for HE R-2/jason has been ordered on block (B2) which will be reported separately. ??Within specimen ( B), three masses were identified grossly. ??The two larger masses are repres entative of a single irregularly shaped invasive carcinoma (1.2 cm in micro scopic diameter) with surrounding ductal carcinoma in situ and dense interlo bular fibrosis with adenosis. ??The third and sm allest mass is microscopically identified as nodular fibrocystic change. ??(Dr. Avalos)/mpl ? Document reviewed and electronically signed by: ? KONRAD MONTEZ [facility] ? Report ??Date: 08/19/2011 15:20 By the signature above, the attending physician certif ies that he/she has personally conducted a gross and/or microscopic examin ation of the described specimens and rendered or confirmed the above diagnosi s. Specimen(s) Received: A. ?Right axillary sentinel node, count 3 [id number] B. ? Right total mastectomy, one black is superior , two black is lateral C. ? Left total mastectomy, one black superior, tw o black lateral ? Clinical History: ? Right sided breast cancer ? Intraoperative Interpretation: ? SP1A. ??SP1D. ??Lymph nodes, right sentinel, count [id number], excision: ??Four lymph nodes negative for metastatic carcinoma. Reported to Dr. Jauregui in OR 14 on 08/14/2011 at 1441 ? ?Dr. Tilley I reviewed the slides with t he Fellow and agree with the interpretation rendered Dr. Renner, 08/14/11 at 1455 ? Gross Description: ? Received fresh labell ed Jia Dow and A ??right axillary sentinel node, count [id number] is a 4.0 x 2.0 x 0.8 cm piece of adipose tissue, within which are identified four probable lymph nodes . ??Lymph node 1A measures 1.0 x 0.5 x 0.6 cm and is bisected and s craped as SP1A, with the interpretation as rendered above. ??Lymph node 1B measu res 0.7 x 0.5 x 0.4 cm and is bisected and scraped as SP1B, with the interpretatio n as rendered above. ??Lymph node 1C measures 0.4 x 0.3 x 0.2 cm and is bisected and scraped as SP1C, with the interpretation as rendered above. ??Lymph node 1D measures 0.4 x 0.3 x 2.0 cm and is bisected and scraped as SP1C, with the in terpretation as rendered above. ??Lymph node 1A, 1B, and 1C were evaluated by Dr. Bojorquez in the OR for a research protocol, and tissue was obtained for investigational purposes. ??The possi ble lymph nodes are entirely submitted as follows: BLOCK CATES A1 ?Lymph node 1A A2 ?Lymph node 1B A3 ?Lymph node 1C A4 ?Lymph node 1D Received fresh labelled Jia Kinsey and right total mastectomy, one stitch superior, two stitch lateral is a 215 gram oriented breast which measures 20.0 cm from medial to lateral, 14.0 cm from superior to inferior, and 2.5 cm from anterior to posterior. ??There is an att ached skin ellipse measuring medial to lateral 3.5 cm, and superior to inferior 3.0 cm. ??The re is an erect nipple measuring 0.9 x 0.7 x 0.4 cm . ??There is no axillary tail. ??The specimen is inked black on the posterior and a ll remaining margins are inked blue. ??The specimen is sectioned from medial to lateral. Tissue was procur ed by Dr. Bojorquez (shave slices of the larger two nodules) for investigational purposes. ??Within the breast tissue, there are thr ee masses identified. ??The larger of the two masses are located at 2 o'clock, ap proximately 3 ??4 cm from the nipple. ??These masses are by approximate ly 0.4 cm of tissue. ??The larger measures 1.9 cm, is oval to irregular, and has a aguirre firm c ut surface. ??The second mass measures 0.8 cm, is round, slightly irregular, and has a aguirre-wh ite firm cut surfaces. The smaller of these lesions is located 0.4 cm from th e nearest black inked margin, the larger lesion is located 0.3 cm from the blue inked margin. ??There is a third mass noted at the 2 o'clock position 5 cm from the nipple, this mass is 0.4 x 0. 4 x 0.4 cm, is located 0.8 cm from t he nearest black inked margin and 1.0 cm to the nearest blue inked margin. ??This th ird mass is located approximately 0.6 cm from the first two masses. The remainder of the breast is fibrofatty, predominantly fibrous, with no other identified palpable lesions. BLOCK CATES B1 ?Nipple, three transverse sections B2, B3 ?One lev el bisected showing larger mass in B2 and smaller mass in B3 B4, B5 ?Additio nal section of two masses showing possible connection, bisected B6 ?Fibrous tissue between the first two and the third mass B7 ?Section of third mass showing blue an d black ink B8 ?Subareolar tissue B9 ?Upper inner quadrant adjacent to mass with likely biopsy tracts B10 ?Upper inner quadrant B11 ?Smaller inner quadrant B12 ?Lower outer quadrant B13 ?Upper outer quadrant B14 ?Additional section of third mass B15 ?Tissue between first two and third m ass ? Time removed from patient: ??1432 hours on 08/13 Time in formalin: ??1525 hours on 08/14/2011 Time out of formalin: ??1900 hours on 08/15/2011 ? Received fresh labelled Joey Kinsey ??left total mastectomy, 1 black superior, 2 black lateral is a [address] measuring medial to lateral 17.0 cm, superior to inferior 17.5 cm, and anterior to posterior 1.7 cm. There is an attached skin ellipse measuring medial to lateral 3.0 cm, and superior to inferior 3.5 cm. ??An erect nipple measures 1.0 x 0.9 x 0.5 cm. There is no axillary tail submitte d. ??The posterior is inked black and all remaining margins are inked blue and the specimen is sectioned f rom medial to lateral. Sectioning reveals fibrofatt y tissue (approximately 50% fibrous). ??The nipple is without lesion. ??At the 11 o'clock position lonnie roximately 5 cm to the nipple there is an area of cheng-aguirre nodularity measuring appr oximately 0.5 cm. Worship Leader sections are submitted as follows: BLOCK CATES C1 ?Nipple, three transverse sections C2 ?Nodule at 11 o'clock C3 ?Subareolar tissue C4 ?Upper outer quadrant C5 ?Lower outer quadrant C6 ?Lower inner quadrant C7 ?Upper inner quadrant (Dr. Avalos)/mms ? Time removed from patient: ??1552 hours on 08/13 Time in formalin: ??1640 hours on 08/14/2011 Time out of formalin: 1900 hours on 08/15/2011 ? C-erb-B2 IMMUNOPEROXIDASE STAIN ? Date Ordered: ? 08/20/2011 ? Status: ?? Signed Out ?Date Complete: ? 08/20/2011 ? By: ??Eitan Franklin ? Date Reported: ? 08/20/2011 ? Interpretation Comment ? Due to the equivocal (borderline positive) 2+ IHC result, an alternative test for Her2/jason gene amplification by fluorescence i n situ hybridization (FISH) has been ordered and will be reported separatel y. ??(Dr. Richardson)/jimmy Description ? Tissue submitted: Par affin embedded tissue block labelled [id number] (B2) from [facility] Fixative: ??Formalin (Fixati on in 10% neutral buffered formalin for 18-24 hours with maximum tissue thickness of 3-4 mil limeters is recommended for best assay performance. ??Dako HerceptestTM should not be perform ed on alcohol fixed tissues.) ? A c-erb-B2 (Her2/jason) assay (Dako HerceptestTM) was requested by Dr. Jauregui on this breast carcinoma. ?? The assay was performed under appropriate conditions according to the manufacture r' s instructions with appropriate assay and tissue controls. ?HerceptestTM Scoring Guid summer (invasive tumor component only) ? 0 ? negative ?No staining or membrane staining in less than 10% of cells ? 1+ ? negative ?Faint partial membrane staining in more than 10% of cells ? 2+ ? weakly posit axel ?Moderate complete membrane staining in more than 10% of cells ? 3+ ? positive ? Strong complete membrane staining in more than 30% of cells ? ASSAY RESULTS ? HerceptestTM Score: ? 2+ ?See comment. ?Cells with complete membrane staining: ? 10% ? Membrane staining intensity: ?Mode rate to strong ? Partial membrane staining: ?Presen t in 60% of cells ? Cytoplasmic staining: ? Aleida t to moderate ? Staining pattern: ? Heteroge neous ? Staining in benign epithelium: ?Fa int, cytoplasmic ?The c-erb-B2 (Her2-jason) assay performed is interpreted as weakly positive. ?? Document reviewed and electronically signed by: ? JESSICA RICHARDSON MD ? Report date: 08/20/2011 By the signature above, the attending physician certif ies that he/she has personally conducted a gross and/or microscopic examin ation of the described specimens and rendered or confirmed the above diagnosi s. HER2/JASON by FISH ? Date Ordered: ? 08/21/2011 ? Status: ?? Signed Out ?Date Complete: ? 09/02/2011 ? By: ??K cyndy Schulz ? Date Reported: ? 09/02/2011 ? Interpretation Description ? A Her2/jason (c-erbB-2) test by fluorescence in-situ hybridization (FISH) was requested by Dr. Rakesh martínez owing a 2+ immunohistochemical assay ([id number]). ??A paraffin embedded tissue block ([id number] (B2)) was se nt to [facility] for testing. ??The ratio of target probe to centromeric control probe was 1.05. ??Most nucle i had 1.9 copies of control probe and 1.9 copies of target probe. ??A ratio greater than 2.2 usually indicates Her2/jason (c-erb-B2) gene amplification. This is interpreted as a negative (non-amplified) resu lt. ?? Document reviewed and electronically signed by: ? PHYLLIS GARZA MD ? Report date: 09/02/2011 By the signature above, the attending physician certif ies that he/she has personally conducted a gross and/or microscopic examin ation of the described specimens and rendered or confirmed the above diagnosi s. End of Report Specimen Performing Organization Address [facility]/State/ZIP Code Phon e Number [facility] [address] [place] [address] [facility] [address] [place] [address] documented in this encounter Visit Diagnoses Not on filedocumented in this encounter Care Teams Family Resource Coordinator Relationship Specialty Start Date End Date Jimbo Davey MD PCP - General 10/13/08 05/13/[address] [phone] documented as of this encounter
--- OUTSIDE RECORDS SUMMARY | 2021-11-29 00:32 | XMS_ITS | Encounter Summary ---
:1970 Author Organization [facility] Address [address] [place] [address] Care Team Providers Name Role Phone Evert Perdomo MD Primary Care Provider Reason for Visit Reason Onset Date Comments Paperwork request 08/12/2011 Encounter Details Date Type Department Care Team Description 08/12/2011 Telephone [facility] Asa Cameron MD Paperwork request Surgical Oncology - [address] [place] [address], [address], [address] [place], [place] [id number] [place] [address] [phone] (Wo rk) Social History Tobacco Use [...] this encounter Miscellaneous Notes Telephone Encounter - MarquesLucero flores - 08/12/2011 1533 EDT MOM, CARA CHAND FAXED PAPERWORK TODAY TO DR CAMERON SO SHE COULD TAKE TIME TO HELP PATIENT. SHE WANTS YOU TO TRASH IT BECAUSE SHE IS BRING UPDATE PAPERWORK. documented in this encounter Plan of Treatment Upcoming Encounters Date Type Specialty Care Team Description 12/16/2021 Appointment Infusion Therapy 04/15/2022 Office Visit Hematology and Oncology Poppy Felton, PAChuyC [address] [phone] (Wo rk) 05/30/2022 Office Visit Surgical Oncology Asa Cameron MD [address] [phone] (Wo rk) documented as of this encounter Visit Diagnoses Not on filedocumented in this encounter Care Teams Decator Operator Relationship Specialty Start Date End Date Evert Perdomo MD PCP - General 10/13/08 05/13/[address] [phone] documented as of this encounter
--- OUTSIDE RECORDS SUMMARY | 2021-11-29 00:32 | XMS_ITS | Encounter Summary ---
:1970 Author Organization [facility] Address [address] [place] [address] Care Team Providers Name Role Phone Evert Perdomo MD Primary Care Provider Reason for Visit Reason Onset Date Comments Medications Refill 04/14/2011 concerta Encounter Details Date Type Department Care Team Description 04/14/2011 Refill [facility] Adult Evert Perdomo Ala, Medications Refill Primary Care - Hallie ROA (concerta) [address] [address] [address] [place], [place] [phone] (Wo rk) Social History Tobacco Use Types [...] Take 1 Tab by 28 Tab 0 201105/23/2011 27 mg CR tablet mouth daily for 28 days. documented in this encounter Miscellaneous Notes Telephone Encounter - Mamta Mayorga - 04/16/2011 1344 EST Script in drawer Patient aware Telephone Encounter - Charlotte Lynne - 04/14/2011 1532 EST concerta ER 27 mg 1 daily Please call pt when ready documented in this encounter Plan of Treatment Upcoming Encounters Date Type Specialty Care Team Description 12/16/2021 Appointment Infusion Therapy 04/15/2022 Office Visit Hematology and Oncology Poppy Felton PA-C [address] [phone] (Wo rk) 05/30/2022 Office Visit Surgical Oncology Asa Cameron MD [address] [phone] (Wo rk) documented as of this encounter Visit Diagnoses Not on filedocumented in this encounter Discontinued Medications Medication Sig Discontinue Reason Start Date End Date methylphenidate (CONCERTA) Take 1 Tab by Reorder 03/19/2011 04/14/2011 27 mg CR tablet mouth daily. documented as of this encounter Care Teams Advertising Designer Relationship Specialty Start Date End Date Evert Perdomo MD PCP - General 10/13/08 05/13/[address] [phone] documented as of this encounter
--- OUTSIDE RECORDS SUMMARY | 2021-11-29 00:32 | XMS_ITS | Encounter Summary ---
:1970 Author Organization [facility] Address [address] [place] [address] Care Team Providers Name Role Phone Evert Perdomo MD Primary Care Provider Reason for Visit Reason Onset Date Comments Medications Refill 03/19/2011 Encounter Details Date Type Department Care Team Description 03/19/[address] [facility] Adult Evert Perdomo MD Medications Refill Primary Care - [address] [address] [phone] (Wo rk) Social History Tobacco Use Types [...] Sig Dispensed Refills Start Date End Date trazodone (DESYREL) 50 mg Take 1.5 Tabs by 135 Tab 1 02/2411/11/2011 tablet mouth at bedtime. [id number] by mouth. documented in this encounter Miscellaneous Notes Telephone Encounter - Marilou Bruner - 03/19/2011 1547 EST Rec'd fax from pharmacy for refill of Trazodone HCL 50mg tabs. documented in this encounter Plan of Treatment Upcoming Encounters Date Type Specialty Care Team Description 12/16/2021 Appointment Infusion Therapy 04/15/2022 Office Visit Hematology and Oncology Poppy Felton, PAChuyC [address] [phone] (Wo rk) 05/30/2022 Office Visit Surgical Oncology Asa Cameron MD 111 [facility] 2 [place], [place] [phone] (Wo rk) documented as of this encounter Visit Diagnoses Not on filedocumented in this encounter Discontinued Medications Medication Sig Discontinue Reason Start Date End Date trazodone (DESYREL) 50 mg Take 1.5 Tabs by Reorder 04/08/2010 03/19/2011 tablet mouth at bedtime. [id number] by mouth. documented as of this encounter Care Teams Reconciliation Machine Operator Relationship Specialty Start Date End Date Evert Perdomo MD PCP - General 10/13/08 05/13/[address] [phone] documented as of this encounter
--- OUTSIDE RECORDS SUMMARY | 2021-11-29 00:32 | XMS_ITS | Encounter Summary ---
:1970 Author Organization [facility] Address [address] [place] [address] Care Team Providers Name Role Phone Evert Perdomo MD Primary Care Provider Phliip Schulz MD Primary Care Provider Jia Minor PA-C Primary Care Provider Unavailable Filomena Ochoa PA-C Primary Care Provider [phone] Encounter Details Date Type Department Care Team Description 08/04/2011 Documentation Visit [facility] Boaz Avitia MD PhD Radiation Oncology - [address] [place] [address], [address] [place], [place] [id number] [place] [phone] (Wo rk) Social History Tobacco Use Types [...] on file documented as of this encounter Consult Notes Cristina Avitia MD - 08/05/2011 1110 EDT DIVISION OF RADIATION ONCOLOGY CONSULTATION - 08/04/2011 DIAGNOSIS: [id number] infiltrating ductal carcinoma of the right breast, upper inner quadrant. CHIEF COMPLAINT: Palpable mass/breast cancer. HISTORY OF PRESENT ILLNESS: The patient is a 41-year-old woman who is being seen at the request of Dr Cameron in the multidisciplinary breast clinic. The patient self-palpated a mass in her right breastat the upper inner quadrant. She also had the sensation that the breast was somehow enlarged. She was evaluated by Dr Evert Perdomo and referred for mammogram. Mammogram done on July 29 as well as sonogram showed a suspicious mass in the region of the palpable concern. The region is irregular, difficult to measure. There is also an appearance of a satellite nodule. There were no abnormalities in the axilla, contralateral breast or contralateral axilla. The patient underwent an ultrasound-guided biopsy the same day. Pathology reveals adenocarcinoma, ductal type, nuclear grade 2, associated with DCIS. There were foci suspicious for lymphovascular invasion. The tumor is ER positive in more than 90% of the cells and IA positive in more than 90% of the cells. The patient is being seen today in the multidi sciplinary breast clinic. She denies any nipple discharge or any other complaints related to her breast. She denies any cough, shortness of breath, abdominal pain or bone pain. She denies any headache,blurring of vision, diplopia. PAST MEDICAL HISTORY: Significant for depression, anxiety and ADHD. MEDICATIONS: Concerta, Vyvanse, Wellbutrin, Desyrel and fish oil. ALLERGIES: No known drug allergies. REPAIRER VENEER SHEET HISTORY: 2, para 2. Menarche at 14. First delivery at 29. She has 2 children, a son, age12, and a daughter, 10. 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 SOCIAL HISTORY: She does not smoke, drinks alcohol socially. FAMILY HISTORY: Significant for maternal grandmother breast cancer at age 46 and a brother with thyroid cancer in his 20s. REVIEW OF SYSTEMS: A 10-point review of systems performed. Pertinent positives and negatives as per HPI. OBJECTIVE: On physical examination, this is a well-appearing young woman in no apparent distress. HEENT: Unremarkable. Neck: Supple, full range of motion. There are no masses or thyromegaly palpable. There is no supraclavicular, infraclavicular or axillary lymphadenopathy in either right or left side.There are no suspicious nodularities, suspicious skin dimpling or nipple discharge in the left breast. In the right breast, at the upper inner quadrant periareolar area, there is a palpable mobile mass. Lungs: Clear to auscultation and percussion. Heart: Regular rate and rhythm. Abdomen: Soft, nontender without organomegaly or masses palpable. Extremities: No clubbing, cyanosis or edema. Neurologic exam: Unremarkable. The patient is alert and oriented x3 with normal mood and affect. IMPRESSION AND PLAN: A 41-year-old woman with approximately 2.1 cm invasive ductal carcinoma, ER positive, IA positive in the upper inner quadrant of the right breast. Clinically, the lymph nodes are negative. The patient is not an ideal candidate for breast conservation.The mass appears to be too large in relationship to the breast size. If the patient really wishes breast conservation, one can be attempted, but probably she would benefit more from a mastectomy. I discussed with the patient mastectomy versus breast-conserving therapy. I discussed with her the role of radiation therapy post-breast c onservation or post-mastectomy. Radiation would only be recommended post- mastectomy if the lymph nodes are positive or the tumor size is large. I discussed with her daily treatment, treatment planning and simulation. I discussed with her the acute and long-term side effects. I also discussed with her the issues of reconstruction. It seems that she will not have enough tissue for autologous reconstruction and an implant may be necessary. The patient seems to be preferring unilateral mastectomy at this time, however, she is also considering bilateral mastectomy. She will also be meeting with the genetic counselor. Electronically Signed by Cristina Avitia MD 08/05/2011 15:18 Cristina Avitia MD - Cristina Avitia MD - WP Job ID: SM Doc ID: [id number] Ext Doc ID: [id number] cc: MD Asa Ames MD Mark A Levine, MD documented in this encounter Plan of Treatment Upcoming Encounters Date Type Specialty Care Team Description 12/16/2021 Appointment Infusion Therapy 04/15/2022 Office Visit Hematology and Oncology Poppy Felton PA-C 111 [facility], [facility] 2 [place] [phone] (Wo rk) 05/30/2022 Office Visit Surgical Oncology Asa Cameron MD [address] [phone] (Wo rk) documented as of this encounter Visit Diagnoses Not on filedocumented in this encounter Additional Health Concerns Infection Onset Date Last Indicated Resolved Time R/O COVID-19 10/16/2019 10/16/2019 10/21/2019 22:15 EDT documented as of this encounter Care Teams Transitional Kindergarten Teacher Relationship Specialty Start Date End Date Evert Perdomo MD PCP - General 10/13/08 05/13/[address] [phone] Philip Schulz MD PCP - General 05/14/16 12/06/[address] [place] [address] DR MELO, FOUZIA [phone] Jia Minor PA-C PCP - General 12/07/1703/01/18 Filomena Ochoa PA-C PCP - General 03/02/18 [address] [place] [phone] documented as of this encounter
--- OUTSIDE RECORDS SUMMARY | 2021-11-29 00:32 | XMS_ITS | Encounter Summary ---
:1970 Author Organization [facility] Address [address] [place] [address] Care Team Providers Name Role Phone Evert Perdomo MD Primary Care Provider Encounter Details Date Type Department Care Team Description 07/30/2011 Hospital Encounter [facility] - S Jessi Pleitez MD PhD Marissa [address] [place] [address], [place] [phone] (Wo rk) Social History Tobacco Use Types [...] 0 201109/29/2011 30 mg capsule mouth daily. Benavides-3 Fatty Acids-Vitamin Take by mouth. 0 09/10/2011 E (FISH OIL) 1,000 mg Cap trazodone (DESYREL) 50 mg Take 1.5 Tabs by 135 Tab 1 02/2411/11/2011 tablet mouth at bedtime. [id number] by mouth. documented as of this encounter Discharge Disposition Disposition Code Departure Means Destination Home or Self Care documented in this encounter Plan of Treatment Upcoming Encounters Date Type Specialty Care Team Description 12/16/2021 Appointment Infusion Therapy 04/15/2022 Office Visit Hematology and Oncology Poppy Felton, PAChuyC 111 [facility] 2 [place], [place] [phone] (Wo rk) 05/30/2022 Office Visit Surgical Oncology Asa Cameron MD 111 [facility] 2 [place] [phone] (Wo rk) documented as of this encounter Visit Diagnoses Not on filedocumented in this encounter Care Teams Office Secretary Relationship Specialty Start Date End Date Evert Perdomo MD PCP - General 10/13/08 05/13/[address] [phone] documented as of this encounter
--- OUTSIDE RECORDS SUMMARY | 2021-11-29 00:32 | XMS_ITS | Encounter Summary ---
:1970 Author Organization [facility] Address [address] [place] [address] Care Team Providers Name Role Phone Evert Perdomo MD Primary Care Provider Encounter Details Date Type Department Care Team Description 08/28/2010 Hospital Encounter [facility] [address] [address] [address] [place], [place] [phone] (Wo rk) Social History Tobacco Use Types [...] Take 1 Tab by 90 Tab 3 011 07/25/2011 300 mg XL tablet mouth daily. clonAZEPAM (KLONOPIN) 0.5 mg Take 1 Tab by 6 Tab 0 05/2408/11/2011 tablet mouth 2 times daily as needed. LEVONORGESTREL-ETH ESTRA Take by mouth. 0 08/11/2011 (AVIANE ORAL) methylphenidate (CONCERTA) Take 27 mg by 0 09/02/2010 27 mg CR tablet mouth daily. Shelby-3 Fatty Acids-Vitamin Take by mouth. 0 09/10/2011 E (FISH OIL) 1,000 mg Cap trazodone (DESYREL) 50 mg Take 1.5 Tabs by 135 Tab 3 03/2603/19/2011 tablet mouth at bedtime. [id number] by mouth. documented as of this encounter Discharge Disposition Disposition Code Departure Means Destination Home or Self [place] documented in this encounter Plan of Treatment Upcoming Encounters Date Type Specialty Care Team Description 12/16/2021 Appointment Infusion Therapy 04/15/2022 Office Visit Hematology and Oncology Poppy Felton PA-C [address] [phone] (Wo rk) 05/30/2022 Office Visit Surgical Oncology Asa Cameron MD [address] [phone] (Wo rk) documented as of this encounter Visit Diagnoses Not on filedocumented in this encounter Care Teams Lard Mixer Relationship Specialty Start Date End Date Evert Perdomo MD PCP - General 10/13/08 05/13/[address] [phone] documented as of this encounter
--- OUTSIDE RECORDS SUMMARY | 2021-11-29 00:32 | XMS_ITS | Encounter Summary ---
:1970 Author Organization [facility] Address [address] [place] [address] Care Team Providers Name Role Phone Jimbo Perdomo MD Primary Care Provider Encounter Details Date Type Department Care Team Description 07/30/2011 Results Only [facility] Estela Vaughan Laboratory Services - Cindy Avila [address] [address] [place] [phone] (Wo rk) Social History [...] and Oncology Poppy Felton PA-C 111 [facility], [address] [phone] (Wo rk) 05/30/2022 Office Visit Surgical Oncology Asa Cameron MD 111 [facility], [address] [phone] (Wo rk) documented as of this encounter Procedures Procedure Name Priority Date/Time Associated Diagnosis Comme nts SURGICAL PATHOLOGY Routine 07/30/2011 0:00 EDT Re sults for this procedure are i n the results section. documented in this encounter Results SURGICAL PATHOLOGY (07/30/2011 0:00 EDT) Pathologist [facility] Pathology SURGICAL PATHOLOGY REPORT MALLORY ALBA Report: LAB Reports generated via electronic interface contain masha ginal data; however they are lacking the format of the original re port. Caution should be taken when reading/interpreting unfo rmatted reports. Name: ? JIA DOW ? Accession #: ? [id number] ? : ? 1970 (Age: 41) ??F ?Collect Da te: ? 07/30/2011 ? Location: ? [facility] ? Receive Date: ? 012 ? Provider: ESTELA VAUGHAN MD Copy to: JIMBO MALAGON MD ? Final Pathologic Diagnosis: ? Breast, right, 3:00, 3.5 cm out from nipple, ultrasound-guided needle core biopsies: 1. ?Adenocarcin meseret, ductal type, invasive, nuclear grade II. ??See comment. 2. ? Ductal carcinoma in situ (DCIS), cribri form pattern, focal necrosis, nuclear grade II. 3. ? Foci suspicious for lymphovascular invasion. ?? Comment: ? Rare foci are suspicious but not definitive for lymphvascular invasion. State Trooper sections of this case have been reviewe d in intradepartmental consultation. ??Estrogen and progesterone receptors have been ordered and will be reported separately. This case has been discusse d with Dr. Estela Vaughan on 07/31/2011 at 4:15 pm. (Dr. Felton)/lenin ? Document reviewed and electronically signed by: ? ARIADNE FELTON MD ? Report ??Date: 07/31/2011 16:38 By the signature above, the attending physician certif ies that he/she has personally conducted a gross and/or microscopic examin ation of the described specimens and rendered or confirmed the above diagnosi s. Specimen(s) Received: ? Ultrasound-guided cor e biopsy, right breast, 3:00, 3.5 cm out from nipple, 13.0 x 6.0 x 21.0 mm ? Clinical History: ? Palpable irregular mass ? Gross Description: ? Received in formalin labelled Jia Dow and right breast 3:00, 3.5 cm out are five yellow and white cylindrical biopsies each measuring 0.2 cm in diameter and ranging in length from 1.0 cm up to 1.7 c m. ??The specimens are submitted intact as (A1) and (A2). (Lori Lentz/audra naylor ? Time removed from patient: ??07/30/2011 at 12:51 hours Time in formalin: ??07/30/2011 at 12:51 hours Time out of formalin: ??07/31/2011 at 0900 hours ? ESTROGEN AND PROGESTERONE RECEPTOR IMMUNOPEROXIDASE ST AINS ? Date Ordered: ? 08/01/2011 ? Status: ?? Signed Out ?Date Complete: ? 08/01/2011 ? By: ??C hristine Hier ? Date Reported: ? 08/01/2011 ? Interpretation ? Breast, right, 3 o'clock, 3. 5 cm out from nipple, ultrasound-guided needle core biopsies: - Adenocarcinoma, ductal type, invasive. 1. ?Positive for estrogen r eceptors (in greater than 90% of tumor cells). ? - Nuclear staining intensity: ??Strong. 2. ?Positive fo r progesterone receptors (in greater than 90% of tumor cells). ? - Nuclear staining intensity: ??Strong. ?? Description ? Tissue submitted: ??P araffin embedded tissue block labelled [facility] [id number] (A1) An immunohistochemical assay for estrogen receptors (E R1D5, Dako) and progesterone receptors (JfS1020, Dako) has been perfor med on this specimen. Standard heat activated anti gen retrieval protocol (EDTA buffer at pH 8.0 and 98 C x 30 minutes) was employed followed by automated immunostaining. Intranuclear receptor complexes were visualized on tissue sections using an HRP polymer immunohistochemical technique. ? Results are reported as negative (<1% nuclear staining) or positive with the proportion of positive c ells noted. ??Estrogen receptor expression in <5% of tumor cells may not have a s masood interaction with estrogen receptor modulators such as Tamoxifen. ??(Dr. Richardson)/[facility] ? NOTE: ??One or more of the reagents used in immunohistochemical testing in this case may not have been cleared or approved by the U.S. Food and Drug Administration (FDA). ??The FDA has determined that such clearance or approval is not necessary. ??These tests are used for clinical purposes. ??They should not be regarded as investigational or for research. ??These r eagents' ??performance characteristics have been determined by [facility]. ??This laboratory is certified unde r the Clinical Laboratory Improvement Amendments of 1988 (CLIA-88) as qualified to perform high complexity clinical laboratory testing. Document reviewed and electronically signed by: ? JESSICA RICHARDSON MD ? Report date: 08/01/2011 By the signature above, the attending physician certif ies that he/she has personally conducted a gross and/or microscopic examin ation of the described specimens and rendered or confirmed the above diagnosi s. ONCOTYPE DX ASSAY ? Date Ordered: ? 09/05/2011 ? Status: ?? Signed Out ?Date Complete: ? 09/15/2011 ? By: ??Cindy Roper ? Date Reported: ? 09/15/2011 ? Interpretation Description Oncotype DX assay performed by [employer] The OncotypeDX breast cancer assay was requested by the patient and Dr. Pleitez. The assay is intended for newly diagnosed patients wit h Stage I or II, node negative, estrogen receptor positive young ast cancer. ??The assay uses RT-PCR to determine the expression of 21 genes in formalin-fixed paraffin-embedded tumor tissue. A paraffin-embedded tissue block ([id number] [A1]) was sent to [facility] for testing. ??The reported recurrence sc ore was 20. ??In a validation study, patients w ith the same recurrence score treated with Tamoxifen had an average rate of distant recurrence at 10 years of 13% (95% CI: 10% to 16%). ??This patient's 95% confidence intervals for 10 -year recurrence risk overlap the 95% confidence intervals for the low risk (4-10%) and intermediate risk (8-20%) groups and the ranges for the low risk (3 -11%) and intermediate risk (11-21% groups. ?? The reported recurrence scor e places this patient in the intermediate recurrence risk group. ?? Document reviewed and electronically signed by: ? PHYLLIS GARZA MD ? Report date: 09/15/2011 By the signature above, the attending physician certif ies that he/she has personally conducted a gross and/or microscopic examin ation of the described specimens and rendered or confirmed the above diagnosi s. End of Report Specimen Performing Organization Address City/State/ZIP Code Phon e Number [facility] [address] [place] [address] [facility] [address] [place] [address] documented in this encounter Visit Diagnoses Not on filedocumented in this encounter Care Teams Shank Maker Relationship Specialty Start Date End Date Jimbo Perdomo MD PCP - General 10/13/08 05/13/16 [address] [place] [phone] documented as of this encounter
--- OUTSIDE RECORDS SUMMARY | 2021-11-29 00:32 | XMS_ITS | Encounter Summary ---
:1970 Author Organization [facility] Address [address] [place] [address] Care Team Providers Name Role Phone Evert Perdomo MD Primary Care Provider Reason for Visit Reason Comments Breast Mass right Medication Questions Depression Encounter Details Date Type Department Care Team Description 07/25/2011 Office Visit [facility] Center Evert Perdomo ma ss (Primary Adult Primary Care - MD Teo Dx) [address] [phone] Social History Tobacco Use Types Packs/Day Years [...] Sign Reading Time Taken Comments Blood Pressure 111/77 07/25/2011 1534 EDT left arm Pulse 86 07/25/2011 1534 EDT Temperature - - Respiratory Rate - - Oxygen Saturation - - Inhaled Oxygen Concentration - - Weight 61.7 kg (136 lb) 07/25/2011 1534 EDT Height 168.9 cm (5' 6.5) 07/25/2011 1534 EDT Body Mass Index 21.62 07/25/2011 1534 EDT documented in this encounter Ordered Prescriptions Prescription Sig Dispensed Refills Start Date End Date buPROPion (WELLBUTRIN XL) Take 1 Tab by 90 Tab 3 012 09/22/2011 300 mg XL tablet mouth daily. lisdexamfetamine (VYVANSE) Take 1 Cap by 28 Cap 0 201109/29/2011 30 mg capsule mouth daily. documented in this encounter Progress Notes Evert Perdomo MD - 07/28/2011 1146 EDT Primary Care Internal Medicine [address] [place] [address] PROGRESS/FOLLOWUP NOTE - 07/25/2011 PROBLEM: ADHD. PROBLEM: Depression. PROBLEM: Anxiety. PROBLEM: Question breast mass. SUBJECTIVE: The patient is here for followup of all of the above. She is having some success with Concerta for her ADHD but on a recent business trip tried a friend's Vyvanse 60 mg, and found that accomplished so much more. She wonders if she can have a trial of that medication for herself. She feels her depression is doing relatively well on the combination of Wellbutrin and trazodone. She has notused clonazepam in many months. She continues to see a therapist but only had [address] Fuentes, an initial visit. Over the last month or so, she has wondered if her right breast has increased in size as she has always thought it was smaller than the left.. Over the last week or so she has noted a firm area around 4 o'clock to 5 o'clock in the right breast and she wonders if it is a mass. It is really asymptomatic in terms of tenderness or anything else to draw her attention to it. She does not perform self-breast exam on a regular basis. She has a family history of breast cancer in maternal grandmother, age 46 at onset. OBJECTIVE: Weight 136, pulse 86, blood pressure 111/77. The patient's ability to focus and provide acoherent history is improved from when I last saw her one year ago, but still somewhat disjointed attimes. She does not appear overly anxious. Examination of the breasts reveal that her ribcage is prominent bilaterally and creates a sense of firmness to exam, but there are no discrete masses palpablebilaterally except at 4 o'clock to 5 o'clock on the right breast where there is a firm area that is not mobile overlying the rib cage. It is somewhat cylindrical as opposed to a feeling of a round mass. It is nontender. There are no abnormalities in the axillae. ASSESSMENT: 1. ADHD -- seems reasonable to have a trial of a lower dose of a new medication. 2. Depression and anxiety - seem to be doing well at the present time. 3. Question right breast mass -- certainly a firm thickened area that needs to be appropriately followup. PLAN: A1. We will schedule for mammography and ultrasound. A2 Return in 4 months for followup of her other problems. B1. At the end of this prescription discontinue Concerta. B2. Begin Vyvanse 30 mg with contingency of increasing the dose. B3. No change in other psychotropic medications. Electronically Signed by Evert Perdomo MD 07/29/2011 18:03 Evert Perdomo MD - Evert Perdomo MD - ANNA Job ID: SM Doc ID: [id number] [facility] Doc ID: [id number] cc: Evret Mora MD - 07/25/2011 1615 EDT This office note has been dictated. documented in this encounter Plan of Treatment Upcoming Encounters Date Type Specialty Care Team Description 12/16/2021 Appointment Infusion Therapy 04/15/2022 Office Visit Hematology and Oncology Poppy Felton PA-C 111 [place] [facility], [address] [place], [place] [phone] (Wo rk) 05/30/2022 Office Visit Surgical Oncology Asa Cameron MD 111 [place] [facility], [address] [place], [place] [phone] (Wo rk) documented as of this encounter Procedures Procedure Name Priority Date/Time Associated Diagnosis Comme nts GERALD DX BILATERAL 07/30/2011 9:11 EDT Resu lts for this EMERGENCY 2 BREAST procedure are in the results section. 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 be malignant, further preoperative evalu ation [...] Symptoms/Comments: < 611.72-GARCÍA MP OR MASS IN [id number]-[id number] R breast firm area 4-5:00 > This [...] suspected satellite nodules, s hould 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 buPROPion (WELLBUTRIN XL) Take 1 Tab by Reorder 06/21/2010 0 07/25/2011 300 mg XL tablet mouth daily. documented as of this encounter Care Teams Legal Editor Relationship Specialty Start Date End Date Evert Perdomo MD PCP - General 10/13/08 05/13/[address] [place] [id number] documented as of this encounter
--- OUTSIDE RECORDS SUMMARY | 2021-11-29 00:33 | XMS_ITS | Encounter Summary ---
:1970 Author Organization [facility] Address [address] [place] [address] Care Team Providers Name Role Phone Jimbo Perdomo MD Primary Care Provider Reason for Visit Reason Comments Medication Management Encounter Details Date Type Department Care Team Description 12/18/2009 Office Visit [facility] Jimbo Perdomo; Adult Primary Care - MD Teo ADHD (attention deficit hyperactivity di sorder); [place] [address] Rash; [address] Routine health maintenance [place], [place] [address] [place] [id number] Social History Tobacco Use Types Packs/Day Years [...] Sign Reading Time Taken Comments Blood Pressure 102/64 12/18/2009 1527 EDT Pulse 68 12/18/2009 1527 EDT Temperature - - Respiratory Rate - - Oxygen Saturation - - Inhaled Oxygen Concentration - - Weight - - Height - - Body Mass Index - - documented in this encounter Progress Notes Jimbo Perdomo MD - 12/21/2009 1804 EDT Primary Care Internal Medicine [address] [place] [address] PROGRESS/FOLLOWUP NOTE - 12/18/2009 PROBLEM 1: Health maintenance. PLAN: Would like lipid profile. PROBLEM 2: Psychiatric issues. a. ADHD b. Depression. SUBJECTIVE: Continues on Concerta 27 mg daily, Wellbutrin 300 mg daily and Aviane, a control preparation which has helped mood stability. Recently, we increased her trazodone from 50 mg to 75 mg,which is the dose she had been on in the past and this has helped her with sleep. She feels her medications are all doing well by her at this point in time. She does not like to try to miss a day of the Concerta at this point in time as it seems to be helpful, though perhaps not as helpful as when shefirst started It. OBJECTIVE: Vital signs are stable. The history is provided coherently and directly without much meandering. Affect appears normal. ASSESSMENT: Seems to be doing well in all regards PLAN: a. Return in 1 year, sooner as needed. Continue with her therapist, who she has a good relationship with at this time. b. Continue the above medications. I have agreed that we can order Concerta through [employer] for 3 months supply at this time and will do so when she needs another prescription. TEMPORARY PROBLEM: Facial rash. SUBJECTIVE: She has been using 1% hydrocortisone cream on her face and wonders if this is okay. Areas of concern or to the right of the mouth and on the chin region where she notices scaliness and slight redness, which seemed to respond to this, but not moisturizers. OBJECTIVE: There is really nothing discernible at this point in time to see. ASSESSMENT: Most likely some mild eczema that did respond. PLAN: A. judicious use of HC cream 1% as needed. Electronically Signed by Jimbo Perdomo MD 12/21/2009 18:04 Jimbo Perdomo MD - Jimbo Perdomo MD - MS Job ID: SM Doc ID: [id number] Ext Doc ID: [id number] cc: Jimbo Mora MD - 12/18/2009 1603 EDT Addended by: JIMBO PERDOMO on: 12/18/2009 Modules accepted: Orders Jimbo Mora MD - 12/18/2009 1600 EDT .dict documented in this encounter Plan of Treatment Upcoming Encounters Date Type Specialty Care Team Description 12/16/2021 Appointment Infusion Therapy 04/15/2022 Office Visit Hematology and Oncology Poppy Felton, SHAHAB 111 [facility], [facility] 2 [place], [place] [phone] (Wo rk) 05/30/2022 Office Visit Surgical Oncology Asa Cameron MD 111 [facility] 2 [place], [place] [phone] (Wo rk) documented as of this encounter Visit Diagnoses Diagnosis Depression Depressive disorder, not elsewhere class ified ADHD (attention deficit hyperactivity di sorder) Attention deficit disorder with hyperact ivity Rash Rash and other nonspecific skin eruption Routine health maintenance Routine general medical examination at a health care facility documented in this encounter Care Teams Magazine Filler Relationship Specialty Start Date End Date Jimbo Perdomo MD PCP - General 10/13/08 05/13/[address] [address] documented as of this encounter
--- OUTSIDE RECORDS SUMMARY | 2021-11-29 00:33 | XMS_ITS | Encounter Summary ---
:1970 Author Organization [facility] Address [address] [place] [address] Care Team Providers Name Role Phone Evert Perdomo MD Primary Care Provider Barbara Moreno MD Primary Care Provider Philip Schulz MD Primary Care Provider Jia Minor PA-C Primary Care Provider Unavailable Filomena Ochoa PA-C Primary Care Provider [phone] Encounter Details Date Type Department Care Team Description 11/05/2000 Hospital Encounter [facility] - Call, Gaetano White MD [address] [place] [phone] Other Unknown, Provider, [address] [place] [address] Social History Tobacco Use Types [...] have Coronavirus/COVID-19? documented as of this encounter Plan of Treatment Upcoming Encounters Date Type Specialty Care Team Description 12/16/2021 Appointment Infusion Therapy 04/15/2022 Office Visit Hematology and Oncology Poppy Felton PA-C [address] [phone] (Wo rk) 05/30/2022 Office Visit Surgical Oncology Asa Cameron MD [address] [phone] (Wo rk) documented as of this encounter Procedures Procedure Name Priority Date/Time Associated Comments Diagnosis N.GONORRHOEAE PROBE Routine 11/05/2000 16:00 Resu lts for this EDT procedure are i n the results section. CHLAMYDIA TRACHOMATIS Routine 11/05/2000 16:00 Re sults for this PROBE EDT procedure are i n the results section. BACTERIAL CULTURE, Routine 11/05/2000 16:00 Resul ts for this URINE EDT procedure are i n the results section. CYTOPATHOLOGY Routine 11/05/2000 0:00 Results for this EDT procedure are i n the results section. documented in this encounter Results N.GONORRHOEAE PROBE (11/05/2000 16:00 EDT) Specimen Cervix [facility] Description LAB Result No Neisseria [facility] gonorrhoeae DNA LAB detected by tour coordinator mediated amplification. Report Status Final [facility] [id number] LAB Specimen Performing Organization Address City/State/ZIP Code Phon e Number [facility] [address] [place] [address] SERVICES [facility] [address] [place] [address] CHLAMYDIA TRACHOMATIS PROBE (11/05/2000 16:00 EDT) Specimen Cervix [facility] Description LAB Result No Chlamydia [facility] trachomatis DNA LAB detected by tour coordinator mediated amplification. Report Status Final [facility] [id number] LAB Specimen Performing Organization Address City/[facility]/ZIP Code Phon e Number [facility] [address] [place] [address] SERVICES [facility] [address] [place] [address] BACTERIAL CULTURE, URINE (11/05/2000 16:00 EDT) Pathologist Sig nature Specimen Description Urine [facility] Result No growth [facility] Report Status Final [facility] [id number] Specimen Performing Organization Address [facility]/ZIP [facility] Phon e Number [facility] [address] [place] [address] SERVICES [facility] [address] [place] [id number] CYTOPATHOLOGY (11/05/2000 0:00 EDT) Pathology Report: CYTOPATHOLOGY REPORT [facility] Reports generated via electronic interface contain masha ginal data; however they are lacking the format of the original re port. Caution should be taken when reading/interpreting unfo rmatted reports. Name: ? JIA BOTELLO ? Accession #: ? [id number] : ? 1970 (Age: 30) ??F ?Collect Date: ? 10/24 Location: ? [facility] ? Receive Date : ? 11/09/2000 Provider: ?KAYLIE ISAAC MD Copy to: ?AIMEE Mae TRAM ROA ? Specimen/Source: ?ThinPrep Pap Test, Cervix/ Endocervix Last Menstrual Period: ? 09/07/00 Menstrual/ Status: ? SPECIMEN ADEQUACY ? Satisfactory for evaluation. GENERAL CATEGORIZATION ? Within Normal Limits ? Document reviewed and electronically signed by: ? NARCISA Pastrana(ASCP) ? Report Date: ??11/10/2000 14:42 End of Report Specimen Performing Organization Address City/State/ZIP Code Phon e Number [facility] [address] [place] [address] SERVICES [facility] [address] [place] [address] documented in this encounter Visit Diagnoses Not on filedocumented in this encounter Additional Health Concerns Infection Onset Date Last Indicated Resolved Time R/O COVID-19 10/16/2019 10/16/2019 10/21/2019 22:15 EDT documented as of this encounter Care Teams [employer] Labourer Relationship Specialty Start Date End Date Evert Perdomo MD PCP - General 10/13/08 05/13/[address] [phone] Barbara Moreno MD PCP - General 08/02/08 10/12/08 1 [facility] Level 1 [place] [phone] Philip Schulz MD PCP - General 05/14/16 12/06/[address] [place] [address] [place] [address] Jia Minor PA-C PCP - General 12/07/1703/01/18 Filomena Ochoa PA-C PCP - General 03/02/18 2 [place] [phone] documented as of this encounter
--- OUTSIDE RECORDS SUMMARY | 2021-11-29 00:33 | XMS_ITS | Encounter Summary ---
:1970 Author Organization [facility] Address [address] [place] [address] Care Team Providers Name Role Phone Unavailable Primary Care Provider Unavailable Encounter Details Date Type Department Care Team Description 12/13/2007 Hospital Encounter [facility] - Nicolle Espino MD 111 [facility] 30 [place], [place] [phone] [place] [phone] (Wo rk) Social History Tobacco Use Types Packs/Day Years Used Date Never Assessed Alcohol Habits Answer Date Recorded How often do you have a drink containing alcohol? 2-3 times a week 11/08/2019 How many drinks containing alcohol do you have on a 1 or 2 11/08/2019 typical day when you are drinking? How often do you have six or more drinks on one Never 11/08/2019 occasion? Comment: Not asked Food Insecurity Answer Date Recorded Within the [...] on file documented as of this encounter Discharge Disposition Disposition Code Departure Means Destination Home or Self Care documented in this encounter Plan of Treatment Upcoming Encounters Date Type Specialty Care Team Description 12/16/2021 Appointment Infusion Therapy 04/15/2022 Office Visit Hematology and Oncology Poppy Felton PA-C 111 [facility] 2 [place], [place] [phone] (Wo rk) 05/30/2022 Office Visit Surgical Oncology Asa Cameron MD 111 [facility], [facility] 2 [place], [place] [phone] (Wo rk) documented as of this encounter Visit Diagnoses Not on filedocumented in this encounter
--- OUTSIDE RECORDS SUMMARY | 2021-11-29 00:33 | XMS_ITS | Encounter Summary ---
:1970 Author Organization [facility] Address [address] [place] [address] Care Team Providers Name Role Phone Unavailable Primary Care Provider Unavailable Encounter Details Date Type Department Care Team Description 12/29/2005 Hospital Encounter [facility] - Nicolle Espino MD 111 [facility] 30 [place], [place] [address] [place] [phone] (Wo rk) Social History Tobacco Use Types [...] Destination Auto Discharge documented in this encounter Plan of Treatment Upcoming Encounters Date Type Specialty Care Team Description 12/16/2021 Appointment Infusion Therapy 04/15/2022 Office Visit Hematology and Oncology Poppy eFlton PA-C 111 [facility] venue [facility], [facility], Level 2 [place], [place] [phone] (Wo rk) 05/30/2022 Office Visit Surgical Oncology Asa Cameron MD 111 [place] [facility] venue [facility], [facility] 2 [place], [place] [phone] (Wo rk) documented as of this encounter Procedures Procedure Name Priority Date/Time Associated Diagnosis Comme nts HPV DETECTION, HIGH Routine 12/29/2005 9:36 EST R esults for this RISK TYPES procedure are i n the results section. documented in this encounter Results HUMAN PAPILLOMA VIRUS DNA TEST (12/29/2005 9:36 EST) Specimen Description Cervix, ThinPrep [facility] vial Result Negative for HPV [facility] types 16, 18, 31, 33, 35, 39, 45, 51, 52, 56, 58, 59, and 68. Report Status Final [facility] [id number] Specimen Performing Organization Address City/State/ZIP Code Phon e Number [facility] [address] [place] [address] SERVICES [facility] [address] [place] [address] documented in this encounter Visit Diagnoses Not on filedocumented in this encounter
--- OUTSIDE RECORDS SUMMARY | 2021-11-29 00:33 | XMS_ITS | Encounter Summary ---
:1970 Author Organization [facility] Address [address] [place] [address] Care Team Providers Name Role Phone Evert Perdomo MD Primary Care Provider Barbara Moreno MD Primary Care Provider Encounter Details Date Type Department Care Team Description 01/07/2008 Office Visit [facility] - Kit Guardado conversion MD [address] [place] [address] [place] [address] [facility] [phone] [place] [address] (Wo rk) Social History Tobacco Use Types [...] documented as of this encounter Progress Notes Cosme Rucker MD - 04/06/2009 1425 EST [facility] - Physician Summary Registration Date/Time: 01/07/2008 11:03 AMMENDED REPORT - SEE ADDENDA BELOW Arrived- By private vehicle. Historian- patient. HISTORY OF PRESENT ILLNESS Chief Complaint: SORE THROAT. This started 4 days ago and is still present. It was gradual in onset.The illness is described as mild. No cough, fever, chills or nasal congestion or discharge. REVIEW OF SYSTEMS No headache, vomiting or diarrhea. PAST HISTORY See nurses notes. Medications: The patient's medications have been reviewed. Allergies: The patient's allergies have been reviewed. SOCIAL HISTORY Nonsmoker. ADDITIONAL NOTES The nursing notes have been reviewed. PHYSICAL EXAM Appearance: Alert. No acute distress. Vital Signs: Have been reviewed. Eyes: Eyes normal inspection. ENT: Ears normal. Mild generalized pharyngeal erythema. No right tonsillar exudate, right tonsillar swelling, left tonsillar exudate or left tonsillar swelling. Neck: Normal inspection. Neck supple. No lymphadenopathy. Respiratory: No respiratory distress. Skin: Normal skin color. Skin warm and dry. No rash. Neuro: Oriented X 3. LABS, X-RAYS, AND EKG Microbiology: Strep screen: negative. Lab Tests Pending: Throat culture. PROGRESS AND PROCEDURES Patient/family counseled. Disposition: Condition: stable. Discharged home. CLINICAL IMPRESSION Pharyngitis. INSTRUCTIONS Drink plenty of fluids. OTC Medications: Take acetaminophen (Tylenol, Datril, etc.) and ibuprofen (Advil, Nuprin, etc.) according to label instructions. Available over the counter. Follow-up: Follow up with your doctor as needed. (Electronically signed by Cosme Rucker M.D. 01/07/2008 16:30) Addenda for JIA BOTELLO VisitID: [id number] Date: 01/07/2008 01/09/2008 10:32 Throat Culture Negative. No Group A Beta Streptococci isolated. signed by Emerita Miles N.P. - 01/09/2008 10:32) Center - Nursing Summary Registration Date/Time: 01/07/2008 11:03 TRIAGE Initial Assessment BP: 110 / 70. HR: 80 regular. RR: 18. Temp: 98.8. --1132 Leesa Griggs R.N.. Medications Ritalin. Wellbutrin. --1130 Leesa Griggs R.N.. Allergies No history of allergy to LATEX. No known drug allergies. --1130 Leesa Griggs R.N.. History Chief Complaint: (sore throat x 3days, feeling tierd, daughter was diagnosed with strep throat last week ). The patient has had a subjective low grade fever (last night). 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 PAST HX: No history of previous surgery. (ADD). SOCIAL HX: Nonsmoker. No alcohol use. Abuse assessment: The patient was asked Do you feel safe in your home? and Has anyone hurt you or threatened to hurt you?. No report of abuse. Historian: patient. --1130 Leesa Griggs R.N.. NURSING PROGRESS NOTES Time-out completed immediately before the procedure per protocol: verified identity of patient (nameand birthdate); verification done by care team (nurse). Throat swab obtained for rapidstrep and culture; sent to lab. --0664 Leesa Griggs R.N.. DISPOSITION / DISCHARGE Condition at departure: unchanged. Patient reports pain level on departure as 4/10. Nolearning barriers present. Discharge instructions reviewed with the patient. Reviewed warnings (reviewed with patient). Patient verbalized understanding. Written instructions provided in Khmer. The patient was disch arged home. The patient left the Emergency Department ambulatory and via private vehicle. Patient driving. --2676 Audelia Barakat L.P.N.. Locked/Released at 01/07/2008 12:25 by Audelia Barakat L.P.N. documented in this encounter Plan of Treatment Upcoming Encounters Date Type Specialty Care Team Description 12/16/2021 Appointment Infusion Therapy 04/15/2022 Office Visit Hematology and Oncology Poppy Felton PA-C [address] [place] [address] [facility] 2 [place], [place] [phone] (Wo rk) 05/30/2022 Office Visit Surgical Oncology Asa Cameron MD 111 [place] [facility], [facility] 2 [place], [place] [phone] (Wo rk) documented as of this encounter Visit Diagnoses Not on filedocumented in this encounter Care Teams School Administrator Relationship Specialty Start Date End Date Evert Perdomo MD PCP - General 10/13/08 05/13/16 108 [facility] 301 [place], [place] [phone] Barbara Moreno MD PCP - General 08/02/08 10/12/08 1 [facility] Level 1 [place] [phone] documented as of this encounter
--- OUTSIDE RECORDS SUMMARY | 2021-11-29 00:33 | XMS_ITS | Encounter Summary ---
:1970 Author Organization [facility] Address [address] [place] [address] Care Team Providers Name Role Phone Evert Perdomo MD Primary Care Provider Barbara Moreno MD Primary Care Provider Philip Schulz MD Primary Care Provider Jia Minor PA-C Primary Care Provider Unavailable Filomena Ochoa PA-C Primary Care Provider [phone] Encounter Details Date Type Department Care Team Description 05/18/2001 Hospital Encounter [facility] - Roman Scott MD [address] [place] [address] Other Unknown, ProviderMD [address] [place], [place] [address] Social History Tobacco Use Types Packs/Day Years [...] Visit Hematology and Oncology Poppy Felton PA-C [address] [place] [phone] (Wo rk) 05/30/2022 Office Visit Surgical Oncology Asa Cameron MD [address] [phone] (Wo rk) documented as of this encounter Procedures Procedure Name Priority Date/Time Associated Comments Diagnosis GROUP B STREPTOCOCCUS Routine 05/18/2001 16:00 Re sults for this SUSCEPTIBILITY EST procedure are in the results section. documented in this encounter Results GROUP B STREPTOCOCCUS SUSCEPTIBILITY (05/18/2001 16:00 EST) Specimen Vaginal and Rectal [facility] Description LAB Result NO GROUP B BETA [facility] STREPTOCOCCI LAB ISOLATED Report Status Final [facility] [id number] LAB Specimen Performing Organization Address City/State/ZIP Code Phon e Number [facility] [address] [place] [address] SERVICES [facility] [address] [place] [address] documented in this encounter Visit Diagnoses Not on filedocumented in this encounter Additional Health Concerns Infection Onset Date Last Indicated Resolved Time R/O COVID-19 10/16/2019 10/16/2019 10/21/2019 22:15 EDT documented as of this encounter Care Teams Regional Construction Manager Relationship Specialty Start Date End Date Evert Perdomo MD PCP - General 10/13/08 05/13/16 108 [facility] [address] [place], [place] [address] Barbara Moreno MD PCP - General 08/02/08 10/12/08 1 [facility] Level 1 [place] [phone] Philip Schulz MD PCP - General 05/14/16 12/06/[address] [place] [address] Jia Minor PA-C PCP - General 12/07/1703/01/18 Filomena Ochoa PA-C PCP - General 03/02/18 2 [place] [address] documented as of this encounter
--- OUTSIDE RECORDS SUMMARY | 2021-11-29 00:33 | XMS_ITS | Encounter Summary ---
:1970 Author Organization [facility] Address [address] [place] [address] Care Team Providers Name Role Phone Evert Perdomo MD Primary Care Provider Reason for Visit Reason Onset Date Comments Medications Refill 08/13/2009 Encounter Details Date Type Department Care Team Description 08/13/2009 [facility] Adult Evert Perdomo MD Medications Refill Primary Care - [phone] [place] [address] [phone] (Wo rk) Social History Tobacco Use Types [...] Take 1 Tab by 28 Tab 0 200909/11/2009 27 mg CR tablet mouth daily for 28 days. 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 elephone Encounter - Charlotte Lynne - 08/13/2009 1601 EDT CONCERTA 27MG TAKE 1 PO DAILY #30 Pt states she will be out tomorow documented in this encounter Plan of Treatment Upcoming Encounters Date Type Specialty Care Team Description 12/16/2021 Appointment Infusion Therapy 04/15/2022 Office Visit Hematology and Oncology Poppy Felton, PAChuyC [address] [phone] (Wo rk) 05/30/2022 Office Visit Surgical Oncology Asa Cameron MD 111 [facility] 2 [place], [place] [phone] (Wo rk) documented as of this encounter Visit Diagnoses Not on filedocumented in this encounter Discontinued Medications Medication Sig Discontinue Reason Start Date End Date methylphenidate (CONCERTA) Take 1 Tab by Reorder 07/12/2009 08/14/2009 27 mg CR tablet mouth daily for 28 days. documented as of this encounter Care Teams Prototype Engineer Relationship Specialty Start Date End Date Evert Perdomo MD PCP - General 10/13/08 05/13/[address] [phone] documented as of this encounter
--- OUTSIDE RECORDS SUMMARY | 2021-11-29 00:33 | XMS_ITS | Encounter Summary ---
:1970 Author Organization [facility] Address [address] [place] [address] Care Team Providers Name Role Phone Barbara Moreno MD Primary Care Provider Encounter Details Date Type Department Care Team Description 08/08/2008 Office Visit [facility] - Nubia lozoya MD [address] [place] [address] [phone] (Wo rk) Social History Tobacco Use [...] Felton PA-C 111 [facility], [facility] 2 [place], [place] [phone] (Wo rk) 05/30/2022 Office Visit Surgical Oncology Asa Cameron MD 111 [facility], [facility] 2 [place] [phone] (Wo rk) documented as of this encounter Visit Diagnoses Evaluation - Cuco Lazo MD - 08/11/2008 0824 EDT Sports Medicine Service [facility] [address] [place] [address] NEW PATIENT EVALUATION - 08/08/2008 CHIEF COMPLAINT Left shoulder pain. SUBJECTIVE Jia Dow is a 38-year-old white right-hand dominant female who presents with two-month history of sudden onset left shoulder pain that occurred while snowboarding. She was snowboarding at night and fell on to the left shoulder. It was mostly the posterior aspect of the upper arm as well as the shoulder. She was able to continue all activities, but continued to have pain. It seems to have not improved with rest. It worsens with reaching as well as reaching behind her. She does not feel unstable and has no clicking or catching in the shoulder. She also denies weakness. She does not require any medication for pain. She rates her pain as 2/10 today, at its most severe is 4/10. PAST MEDICAL HISTORY Pertinent for depression and ADD. PAST SURGICAL HISTORY Negative. MEDICATIONS 1. Wellbutrin 300 mg every day. 2. Trazodone 50 mg every day. 3. Ritalin 20 mg a day. ALLERGIES NKDA. 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 REVIEW OF SYSTEMS A 12-system comprehensive review of systems was documented in the patients chart, all of which is negative. OBJECTIVE Height is 5 feet 7 inches, weight is 145 pounds. General: A and O x3. NAD and pleasant. Focus examination of the left shoulder reveals no ecchymosis, erythema, deformity or atrophy. He hasno deformity. On palpation, she has some tenderness to the proximal aspect of the posterior shoulder, but no tenderness over the AC joint, glenohumeral joint, or supraspinatus insertion. Range of motion of the shoulder is full. She does have some tenderness throughout the mid range arc of motion, on abduction. She internally rotates to T7 bilaterally. She has no apprehension in the abducted and externally rotated position. She has 5/5 motor strength throughout. She has negative impingement testing, negative sulcus sign, and equivocal active compression. Distal neurovascular examination is intact. DIAGNOSTIC DATA Plain films obtained today and independently reviewed by me including true AP, axillary, and outlet views demonstrate no bony abnormalities and no fractures. ASSESSMENT This is a 38-year-old right-hand dominant female with two-month history of left shoulder pain that began suddenly when snowboarding. Her location of her pain is mostly in the posterior shoulder and proximal upper arm around the triceps region. It is less anatomically located in the shoulder and would likely represent a triceps strain, proximal triceps tendinosis. PLAN Patients diagnosis, plain films, treatment options were discussed. She is relatively functional withher shoulder with very few limitations. However, I would recommend a course of physical therapy. Shewould like to do physical therapy on her own if possible. I have given her a triceps tendinosis handout with stretching and strengthening. She will see how this improves her symptoms and return in six weeks. If she has improved on her own, we will see her back as needed, but if she continues to have pain, then I will send her to formal physical therapy and potentially get an MRI of her shoulder. The patient verbalized understanding of the above and agrees with this plan. All of her questions were answered to her satisfaction today. Forty minutes of face to face time was spent with the patient, over 50 percent of which was spent oncounseling and coordination of care of the patients left shoulder pain. Electronically Signed by Cuco Lazo MD 08/11/2008 08:24 Cuco Lazo MD - Cuco Lazo MD - [facility] Job ID: [id number] Doc ID: [id number] cc: documented in this encounter Care Teams Fish Hatchery Specialist Relationship Specialty Start Date End Date Barbara Moreno MD PCP - General 08/02/08 10/12/08 1 [facility] 1 [place] [phone] documented as of this encounter
--- OUTSIDE RECORDS SUMMARY | 2021-11-29 00:33 | XMS_ITS | Encounter Summary ---
:1970 Author Organization [facility] Address [address] [place] [address] Care Team Providers Name Role Phone Evert Perdomo MD Primary Care Provider Barbara Moreno MD Primary Care Provider Philip Schulz MD Primary Care Provider Jia Minor PA-C Primary Care Provider Unavailable Filomena Ochoa PA-C Primary Care Provider [phone] Encounter Details Date Type Department Care Team Description 04/08/2004 Hospital Encounter [facility] - Nicolle Espino MD 111 [facility] 30 [place], [place] [phone] [place] [phone] (Wo rk) Social History Tobacco Use Types [...] and Oncology Poppy Felton PA-C [address] [phone] (Wo rk) 05/30/2022 Office Visit Surgical Oncology Asa Cameron MD [address] [phone] (Wo rk) documented as of this encounter Visit Diagnoses Not on filedocumented in this encounter Additional Health Concerns Infection Onset Date Last Indicated Resolved Time R/O COVID-19 10/16/2019 10/16/2019 10/21/2019 22:15 EDT documented as of this encounter Care Teams Etcher Photoengraving Relationship Specialty Start Date End Date Evert Perdomo MD PCP - General 10/13/08 05/13/16 108 [facility] [address] [place], [place] [address] Barbara Moreno MD PCP - General 08/02/08 10/12/08 1 [facility] Level 1 [place] [phone] Philip Schulz MD PCP - General 05/14/16 12/06/[address] [place] [address] [place] [address] Jia Minor PA-C PCP - General 12/07/1703/01/18 Filomena Ochoa PA-C PCP - General 03/02/18 2 [place] [phone] documented as of this encounter
--- OUTSIDE RECORDS SUMMARY | 2021-11-29 00:33 | XMS_ITS | Encounter Summary ---
:1970 Author Organization [facility] Address [address] [place] [address] Care Team Providers Name Role Phone Evert Perdomo MD Primary Care Provider Reason for Visit Reason Onset Date Comments Medications Refill 01/09/2010 Encounter Details Date Type Department Care Team Description 01/09/2010 Refill [facility] Adult Evert Perdomo MD Medications Refill Primary Care - [address] [address] [phone] (Wo rk) Social History Tobacco Use Types [...] Date methylphenidate (CONCERTA) Take 1 Tab by 30 Tab 0 200902/01/2010 27 mg CR tablet mouth daily. documented in this encounter Miscellaneous Notes Telephone Encounter - Charlotte Lynne - 01/09/2010 1559 EST Script avail for pt pickup Pt aware elephone Encounter - Charlotte Lynne - 01/09/2010 1124 EST CONCERTA Call pt when ready documented in this encounter Plan of Treatment Upcoming Encounters Date Type Specialty Care Team Description 12/16/2021 Appointment Infusion Therapy 04/15/2022 Office Visit Hematology and Oncology Poppy Felton PA-C [address] [phone] (Wo rk) 05/30/2022 Office Visit Surgical Oncology Asa Cameron MD [address] [phone] (Wo rk) documented as of this encounter Visit Diagnoses Not on filedocumented in this encounter Discontinued Medications Medication Sig Discontinue Reason Start Date End Date methylphenidate (CONCERTA) Take 1 Tab by Reorder 12/11/2009 01/09/2010 27 mg CR tablet mouth daily. documented as of this encounter Care Teams Gaming Investigator Relationship Specialty Start Date End Date Evert Perdomo MD PCP - General 10/13/08 05/13/[address] [address] documented as of this encounter
--- OUTSIDE RECORDS SUMMARY | 2021-11-29 00:33 | XMS_ITS | Encounter Summary ---
:[address] [facility] Address [address] [place] [address] Care Team Providers Name Role Phone Evert Perdomo MD Primary Care Provider Barbara Moreno MD Primary Care Provider Encounter Details Date Type Department Care Team Description 11/07/2004 Results Only [facility] - Nicolle Akbar conversion MD 111 [facility] 30 [place], [place] [address] [place] [phone] (Wo rk) Social History Tobacco Use Types [...] Therapy 04/15/2022 Office Visit Hematology and Oncology Felton, Squires M, PA-C 111 [facility], [facility] 2 [place], [place] [phone] (Wo rk) 05/30/2022 Office Visit Surgical Oncology Asa Cameron MD 111 [facility] 2 [place] [phone] (Wo rk) documented as of this encounter Procedures Procedure Name Priority Date/Time Associated Diagnosis Comme nts CYTOPATHOLOGY Routine 11/07/2004 0:00 EDT Results for this procedure are i n the results section . documented in this encounter Results CYTOPATHOLOGY (11/07/2004 0:00 EDT) Pathology Report: CYTOPATHOLOGY REPORT [facility] Reports generated via electronic interface contain masha ginal data; however they are lacking the format of the original re port. Caution should be taken when reading/interpreting unfo rmatted reports. Name: ? JIA BOTELLO ? Accession #: ? [id number] : ? 1970 (Age: 34) ??F ?Collect Date: ? 10/24 Location: ? [facility] ? Receive Date : ? 11/08/2004 Provider: ?NICOLLE LONDONO MD Copy to: ? Specimen/Source: ? ThinPrep Pap Test, Cervix/Endocervix, processed on DubMeNowPrep Imaging System, with manual evaluation Last Menstrual Period: ? 11/07/04 Other: ? HPVA - HPV testing requested if ASC-US on the current ThinPrep Pap test. ? SPECIMEN ADEQUACY ? Satisfactory for Evaluation - transformation zone component present GENERAL CATEGORIZATION ? Negative for Intraepithelial Lesion or Malignan cy ? Document reviewed and electronically signed by: ? NARCISA Pastrana(ASCP) ? Report Date: ??11/15/2004 15:51 End of Report Specimen Performing Organization Address City/State/ZIP Code Phon e Number [facility] [address] [place] [address] [facility] [address] [place] [address] documented in this encounter Visit Diagnoses Not on filedocumented in this encounter Care Teams General Internist Relationship Specialty Start Date End Date Evert Perdomo MD PCP - General 10/13/08 05/13/16 108 [facility] 301 [place], [place] [phone] Barbara Moreno MD PCP - General 08/02/08 10/12/08 1 [facility] Level [address] [place] [phone] documented as of this encounter
--- OUTSIDE RECORDS SUMMARY | 2021-11-29 00:33 | XMS_ITS | Encounter Summary ---
:1970 Author Organization [facility] Address [address] [place] [address] Care Team Providers Name Role Phone Evert Perdomo MD Primary Care Provider Reason for Visit Reason Onset Date Comments Medications Refill 07/09/2009 Encounter Details Date Type Department Care Team Description 07/09/2009 Refill [facility] Adult Evert Perdomo MD Medications Refill Primary Care - [phone] [place] [phone] (Wo rk) Social History Tobacco Use Types [...] Take 1 Tab by 28 Tab 0 200908/14/2009 27 mg CR tablet mouth daily for 28 days. documented in this encounter Miscellaneous Notes Telephone Encounter - Audelia Richardson - 07/10/2009 0754 EDT Patient notified Rx ready for pickup. elephone Encounter - Kyleigh Jacinto MD - 07/10/2009 0641 EDT signed Telephone Encounter - Charlotte Lynne - 07/09/2009 1134 EDT CONCERTA 27MG [address] Perdomo out of the office until Thursday 07/13. Pt states she needs this 07/12. Call when ready documented in this encounter Plan of Treatment Upcoming Encounters Date Type Specialty Care Team Description 12/16/2021 Appointment Infusion Therapy 04/15/2022 Office Visit Hematology and Oncology Poppy Felton, PAChuyC [address] [phone] (Wo rk) 05/30/2022 Office Visit Surgical Oncology Asa Cameron MD 111 [facility] 2 [place], [place] [phone] (Wo rk) documented as of this encounter Visit Diagnoses Not on filedocumented in this encounter Discontinued Medications Medication Sig Discontinue Reason Start Date End Date methylphenidate (CONCERTA) Take 1 Tab by Reorder 06/05/2009 07/09/2009 27 mg CR tablet mouth daily. documented as of this encounter Care Teams Brick Veneer Maker Relationship Specialty Start Date End Date Evert Perdomo MD PCP - General 10/13/08 05/13/[address] [place], [place] [address] documented as of this encounter
--- OUTSIDE RECORDS SUMMARY | 2021-11-29 00:33 | XMS_ITS | Encounter Summary ---
:1970 Author Organization [facility] Address [address] [place] [address] Care Team Providers Name Role Phone Unavailable Primary Care Provider Unavailable Encounter Details Date Type Department Care Team Description 01/01/2001 Hospital Encounter [facility] Roman Machado MD [facility] 111 [facility] 111 [place], [place] [address] [place] [address] [phone] Social History Tobacco Use Types Packs/Day Years [...] Hematology and Oncology Poppy Felton, MARINAC [address] [facility] venue [facility], Level 2 [place], [place] [phone] (Wo rk) 05/30/2022 Office Visit Surgical Oncology Asa Cameron MD 111 [facility] 2 [place], [place] [phone] (Wo rk) documented as of this encounter Visit Diagnoses Not on filedocumented in this encounter
--- OUTSIDE RECORDS SUMMARY | 2021-11-29 00:33 | XMS_ITS | Encounter Summary ---
:1970 Author Organization [facility] Address [address] [place] [address] Care Team Providers Name Role Phone Evert Perdomo MD Primary Care Provider Barbara Moreno MD Primary Care Provider Philip Schulz MD Primary Care Provider Jia Minor PA-C Primary Care Provider Unavailable Filomena Ochoa PA-C Primary Care Provider Encounter Details Date Type Department Care Team Description 10/07/2000 Hospital Encounter [facility] [address] [address] [place] [phone] Social History Tobacco Use Types Packs/Day Years [...] Visit Hematology and Oncology Poppy Felton PA-C [address] [place] [phone] (Wo rk) 05/30/2022 Office Visit Surgical Oncology Asa Cameron MD [address] [phone] (Wo rk) documented as of this encounter Procedures Procedure Name Priority Date/Time Associated Diagnosis Comme nts QUANT BETA HCG, Routine 10/07/2000 12:23 Results for this EDT procedure are i n the results section. documented in this encounter Results HCG (10/07/2000 12:23 EDT) Pathologist Sig nature HCG 2085 mIU/ml [facility] Comment: <4 = Negative 4-10 = Borderline, recommend repeat. Specimen Performing Organization Address City/State/ZIP Code Phon e Number [facility] [address] [place] [address] SERVICES [facility] [address] [place] [address] documented in this encounter Visit Diagnoses Not on filedocumented in this encounter Additional Health Concerns Infection Onset Date Last Indicated Resolved Time R/O COVID-19 10/16/2019 10/16/2019 10/21/2019 22:15 EDT documented as of this encounter Care Teams Credit Collections Specialist Relationship Specialty Start Date End Date Evert Perdomo MD PCP - General 10/13/08 05/13/16 108 [facility] [address] [place], [place] [address] Barbara Moreno MD PCP - General 08/02/08 10/12/08 1 [facility] Level 1 [place] [phone] Philip Schulz MD PCP - General 05/14/16 12/06/[address] [place] [address] [place] [phone] Jia Minor PA-C PCP - General 12/07/1703/01/18 Filomena Ochoa PA-C PCP - General 03/02/18 2 [place] [phone] documented as of this encounter
--- OUTSIDE RECORDS SUMMARY | 2021-11-29 00:33 | XMS_ITS | Encounter Summary ---
:1970 Author Organization [facility] Address [address] [place] [address] Care Team Providers Name Role Phone Barbara Moreno MD Primary Care Provider Encounter Details Date Type Department Care Team Description 12/23/2007 Before [facility] - Barbara Moreno, Converted Visit Carolyn salinas MD (Carolyn) [address] [phone] Level 1 [place] [phone] (Wo rk) Social History Tobacco [...] Hematology and Oncology Poppy Felton, SHAHAB 111 [facility], [facility] 2 [place], [place] [phone] (Wo rk) 05/30/2022 Office Visit Surgical Oncology Asa Cameron MD 111 [facility] [place] [facility], [facility] 2 [place] [phone] (Wo rk) documented as of this encounter Visit Diagnoses Evaluation - Barbara Moreno MD - 09/14/2008 2212 EDT Primary Care Internal Medicine [address] [place] [phone] NEW PATIENT EVALUATION - 12/23/2007 Temporary problem: Probable viral illness. SHAHLA Ro is a 37-year-old woman here to establish care and to discuss [facility] She is , has two children ages six and eight. 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 She has a history of depression, has seen Dr Arreaga in the past, and then was seeing Dr Espino. History also significant for right hand tendon repair about 10 years ago. In terms of health maintenance, she had a Pap and HPV in December 2005 that were negative/normal, and had a tetanus in February 2005. She has had her cholesterol checked in the past, and it has been good. She does not smoke and drinks alcohol rarely. On November 13, 2007, she had one day of high fever up to 102.5. It broke in the middle of the night, but since then, she has had chronic problems with low- grade fever, chills, and achiness. She has been evaluated, including a normal ESR and CRP, negative Lyme antibody test, normal CBC, and normal chest x-ray. She has had a little bit of a rash in the left axillary area with some small bumps that resolved on its own. She has had an HIV test that was negative. A friend of hers actually called in twoweeks of amoxicillin 500 mg three times a day just in case she had Lyme disease; that was after three weeks of symptoms. She is finished with that course of antibiotics. Her Lyme titer was done while she was on antibiotics, but after she had been sick for about three weeks. She thinks that over the past few days, she actually has felt better after a lot of concern and anxiety that she was not gettingbetter. Other symptoms she has had included right eyelid twitching and hand tingling, both of which have resolved. She does note that 10 years ago, she was in [facility], was not taking routine malaria prophylaxis, but after an episode of getting a lot of mosquito bites, she did take postexposure prophylaxis. She has felt generally fatigued and achy and her joints hurt, but her joints were not red, hot, or swollen. She did not have any sore throat, cough, shortness of breath, or chest pain. No abdominal painor other abdominal complaints. Definitely was anxious about the illness. Before this happened, she felt that her depression and anxiety were doing okay. There has been some marital stress and she and her are going to go back to couples counseling, which she has done before and which has been helpful. ALLERGIES No known drug allergies. MEDICATIONS Her meds are per medicine flow sheet. FAMILY HISTORY A family history of thyroid cancer in a brother. Her father is 72 and in generally good health. Her mother is 65 and in generally good health; she has hypothyroidism. Maternal grandmother had breast cancer, postmenopausal. She has a cousin with melanoma. OBJECTIVE Vitals per vital sign flow sheet. Temperature 99.6. She seems a little bit anxious, but overall looks well, in no distress. Anicteric. Conjunctivae not pale. Thyroid within normal limits. Her lungs areclear. Heart has regular S1 and S2 without murmurs, rubs, or gallops. Abdomen is soft, nontender, no hepatosplenomegaly or masses. She has no cervical, supraclavicular, axillary, or inguinal adenopathy. No skin rash, and skin check except for genitalia reveals no suspicious lesions. No lower extremityedema. ASSESSMENT I think most likely, this was a viral syndrome that seems to have resolved itself. I do not think ismael do any further evaluation at this time, but if her symptoms recur, she of course will let me know. There may have also been an element of anxiety about her illness causing some of her symptoms, such as the hand tingling and the right eyelid twitching. PLAN 1. I will assume responsibility for Julio primary care. 2. I have refilled her Wellbutrin and trazodone. 3. For now, she can follow up on an as-needed basis. Signed by Barbara Moreno MD 12/30/2007 14:03 Barbara Moreno MD - Barbara Moreno MD - Job ID: [id number] Doc ID: [id number] cc: documented in this encounter Care Teams Real Estate Intern Relationship Specialty Start Date End Date Barbara Moreno MD PCP - General 08/02/08 10/12/08 1 [facility] 1 [place] [address] documented as of this encounter
--- OUTSIDE RECORDS SUMMARY | 2021-11-29 00:33 | XMS_ITS | Encounter Summary ---
:1970 Author Organization [facility] Address [address] [place] [address] Care Team Providers Name Role Phone Evert Perdomo MD Primary Care Provider Barbara Moreno MD Primary Care Provider Encounter Details Date Type Department Care Team Description 03/19/2005 Office Visit [facility] - Kit Guardado conversion MD [id number] [place] [address] [facility] [phone] [place] [address] (Wo rk) Social History Tobacco [...] encounter Progress Notes Cosme Rucker MD - 04/25/2009 0516 EST Care Center - Physician Summary Registration Date/Time: 03/19/2005 13:48 Time Seen: 1409. Arrived- By private vehicle. Historian - patient. HISTORY OF PRESENT ILLNESS Chief Complaint- Injury to the left ring finger. The injury happened today about 2 hours ago. sustained a laceration from broken glass. Occurred at home. Patient is experiencing mild pain. No other injury. REVIEW OF SYSTEMS No tingling or numbness. PAST HISTORY See nurses notes. Last tetanus immunization was more than 5 years ago. Last tetanus: ( at least 8 or 9 years). Medications: See nurses notes. Allergies: See nurses notes. SOCIAL HISTORY Nonsmoker. ADDITIONAL NOTES The nursing notes have been reviewed. PHYSICAL EXAM Appearance: Alert. Oriented X3. No acute distress. Vital Signs: Have been reviewed - Skin: Skin warm and dry. Extremities: Left ring finger: mild tenderness and subcutaneous 1.5 cm laceration of the PIP joint; - SEE LACERATION PROCEDURE NOTE #1. Neurovascular intact distally. No erythema, swelling or ecchymosis. No limitation in movement. Hand and wrist exam otherwise negative. Extremities otherwise negative. Neuro, Vascular and Tendons: Vascular status intact. Sensation intact. Motor intact. Tendon functionintact. Neuro: Oriented X 3. LABS, X-RAYS, AND EKG X-Rays: Right tib/fib. PROGRESS AND PROCEDURES PROCEDURES Pre-procedure time-out completed. Laceration Repair: Location: left ring finger. Length: 1.5cm. Wound depth/shape- subcutaneous. Distal neuro/vascular/tendon status normal. Anesthesia provided by digital block using 2% lidocaine no epi. Prepped with Betadine. Wound cleansed. Closure of superficial layer: interrupted 5-0 nylon (4 sutures). Dressing applied. Tetanus immunization given. Patient/family counseled. Disposition:Discharged home. Condition: stable. CLINICAL IMPRESSION Laceration. INSTRUCTIONS Suture removal in 10 days. OTC Medications: Take acetaminophen (Tylenol, Datril, etc.) according to label instructions. Available over the counter. (Electronically signed by Cosme Rucker M.D. 03/20/2005 21:01) Care Center - Nursing Summary Registration Date/Time: 03/19/2005 13:48 TRIAGE Initial Assessment Triage time 13:50 . BP: 110 / 70. HR: 60. RR: 16. --1353 Viktoriya Carrington M.A. Medications Effexor (stopping med slowly). Trazodone. --1353 Viktoriya Carrington M.A. Allergies No known drug allergies. --1353 Viktoriya Carrington M.A. History Chief Complaint: INJURY TO THE LEFT RING FINGER. The patient sustained a laceration. PAST HX: Negative. SOCIAL HX: Nonsmoker. --1353 Viktoriya Carrington M.A. This occurred ( 2 1/2 hours ago). The patient sustained a laceration from a broken glass. Pain levelnow: 1/10. ( pt was cut on a piece of glass in the trash.). ( pt states the area did bleed alot.). PAST HX: Last tetanus: ( 10 years ago). --1401 Audelia Sevilla L.P.N. PHYSICAL ASSESSMENT Ambulatory to room. Alert. Oriented X 3. Extremities exhibit normal ROM. Left hand: laceration. Skinis warm. Bleeding is present. --1401 Audelia Sevilla L.P.N. NURSING PROGRESS NOTES Progress Wound cleansed. Call light placed in reach. Bed placed in lowest position. Brakes of bed on. Patientready for evaluation - chart flagged. --1422 Audelia Sevilla L.P.N. Td (TETANUS and DIPHTHERIA) 0.5 mL lot #[id number] exp [id number] IM right deltoid. Pre-procedure time-out completed: verified identity of patient (name and birthdate). . --1423 Audelia Sevilla L.P.N. ( lac tray setup for ). --1437 Audelia Sevilla L.P.N. Sterile dressing consisting of Band-Aid was applied, following the application of antibiotic ointment. --1514 Audelia Sevilla L.P.N. DISPOSITION / DISCHARGE Patient reports pain level on departure as 0/10. Condition at departure: improved and stable. No learning barriers present. Discharge instructions reviewed with the patient. Patient verbalized understanding. Written instructions provided in Spanish. ( pt to return here in 8-10 days for suture removal). The patient was discharged home. The patient left the Emergency Department ambulatory and via private vehicle. Patient driving. Departure time: 15:15. --1515 Audelia Sevilla L.P.N. Locked/Released at 03/19/2005 15:15 by Audelia Sevilla L.P.N. documented in this encounter Plan of Treatment Upcoming Encounters Date Type Specialty Care Team Description 12/16/2021 Appointment Infusion Therapy 04/15/2022 Office Visit Hematology and Oncology Poppy Felton PA-C [address] [phone] (Wo rk) 05/30/2022 Office Visit Surgical Oncology Asa Cameron MD [address] 0 [phone] (Wo rk) documented as of this encounter Visit Diagnoses Not on filedocumented in this encounter Care Teams Deck Engineer Relationship Specialty Start Date End Date Evert Perdomo MD PCP - General 10/13/08 05/13/[address] [phone] Barbara Moreno MD PCP - General 08/02/08 10/12/08 1 [facility] 1 [place] [phone] documented as of this encounter
--- OUTSIDE RECORDS SUMMARY | 2021-11-29 00:33 | XMS_ITS | Encounter Summary ---
:1970 Author Organization [facility] Address [address] [place] [address] Care Team Providers Name Role Phone Evert Perdomo MD Primary Care Provider Reason for Visit Reason Comments Anxiety Encounter Details Date Type Department Care Team Description 06/03/2010 Office Visit [facility] Filomena Ochoa for STDs Adult Primary Care - SHAHAB Wolf (sexually transmitted [place] [address] diseases) (Primary Dx) [address] [place] [address] [place] [address] Social History Tobacco Use Types Packs/Day [...] Sign Reading Time Taken Comments Blood Pressure 100/60 06/03/201041 EDT Pulse 80 06/03/2010 0941 EDT Temperature - - Respiratory Rate - - Oxygen Saturation - - Inhaled Oxygen Concentration - - Weight - - Height - - Body Mass Index - - documented in this encounter Progress Notes Filomena Ochoa PA-C - 06/03/2010 0945 EDT Subjective: Patient ID: Jia Dow is an 40 y.o. female. Chief Complaint Patient presents with ??? Anxiety HPI Comments: Pt is here and she has an appt with Dr. Perdomo next week. Pt was having some anxiety and she had clonazepam #8 over the past 3 years from a previous provider. Pt's was in the office last week for appt. Pt has panic attacks and increased anxiety over this past weekend. She used 2 c lonazepam over the past 2 days. She is having stress with her . She had a possible exposure to STDs and wants some testing. She is not as concerned about HIV, Hep C or syphilis testing. Pt wants to have GC/chlamydia testing done. She has a OUTPATIENT PHYSICAL THERAPIST annual exam in October and will have further testing done at that time if she feels it is necessary. pt does have a f/u with Dr. Perdomo next week. She is planning to have further review of her meds atthat time. Pt feels that she has enough clonazepam to get her to her f/u appt next week. Anxiety Patient Active Problem List Diagnoses Code ??? Depression 311L ??? ADHD (attention deficit hyperactivity disorder) 314.01M No past medical history on file. Current outpatient prescriptions ordered prior to encounter Medication Sig Dispense Refill ??? clonAZEPAM (KLONOPIN) 0.5 mg tablet Take 1 Tab by mouth 2 times daily as needed. 6 Tab 0 ??? methylphenidate (CONCERTA) 27 mg CR tablet Take 1 Tab by mouth daily for 28 days. 28 Tab 0 ??? trazodone (DESYREL) 50 mg tablet Take 1.5 Tabs by mouth at bedtime. [id number] by mouth. 135 Tab 3 ??? LEVONORGESTREL-ETH ESTRA (AVIANE ORAL) Take by mouth. ??? BUPROPION HCL (WELLBUTRIN ORAL) Take 300 mg by mouth. No Known Allergies Social History Substance Use Topics ??? Smoking status: Never Smoker ??? Smokeless tobacco: Not on file ??? Alcohol Use: No rare Review of Systems Constitutional: Negative. Genitourinary: Negative. Denies any lesion or discharge Psychiatric/Behavioral: The patient is nervous/anxious. - See HPI Objective: BP 100/60 Pulse 80 Physical Exam Constitutional: She appears well-developed and well-nourished. No distress. Skin: Skin is warm and dry. She is not diaphoretic. Psychiatric: Her mood appears anxious. Assessment: STD screening anxiety Plan: Anxiety pt is taking wellbutrin XL and has clonazepam #6 to get through the next week may need ramon script, she wanted to wait to discuss with Dr. Leanne berg - pt taking daily pt reports that she and her are all set. offerred to refer for couples counseling. STD screening pt declines other testing offered GC/chlamydia, HIV, Hep C, RPR pt has f/u with OUTPATIENT PHYSICAL THERAPIST in October and she wants to review with OUTPATIENT PHYSICAL THERAPIST will screen for Gc/Chlamydia today in office pt decines order for other screening tests Otky - [phone] I spent a total of 25 minutes in face to face time with this patient and 18 minutes of that time wasspent in counseling and coordination of care as described in the progress note. documented in this encounter Plan of Treatment Upcoming Encounters Date Type Specialty Care Team Description 12/16/2021 Appointment Infusion Therapy 04/15/2022 Office Visit Hematology and Oncology Poppy Felton PA-C 111 [facility], [facility] 2 [place], [place] [phone] (Larissa felder) 05/30/2022 Office Visit Surgical Oncology Asa Cameron MD 111 [facility], [facility] 2 [place], [place] [phone] (Larissa felder) documented as of this encounter Procedures Procedure Name Priority Date/Time Associated Diagnosis Comme nts CHLAMYDIA/N. Routine 06/03/2010 10:03 Screening for STDs Resul ts for this GONORRHOEAE EDT (sexually procedure are i n AMPLIFIED RNA, URINE transmitted the res ults diseases) section. documented in this encounter Results CHLAMYDIA/GC AMPLIFIED, URINE (06/03/2010 10:03 EDT) Specimen Urine [facility] Description LAB Chlamydia Result No Chlamydia [facility] trachomatis DNA LAB detected by procurement director mediated amplification. GC Result No Neisseria [facility] gonorrhoeae DNA LAB detected by procurement director mediated amplification. Specimen Other (qualifier value) Performing Organization Address City/State/ZIP Code Phon e Number [facility] [address] [place] [address] SERVICES [facility] [address] [place] [address] documented in this encounter Visit Diagnoses Diagnosis Screening for STDs (sexually transmitted diseases) - Primary Screening examination for venereal disea se documented in this encounter Discontinued Medications Medication Sig Discontinue Reason Start Date End Date BUPROPION HCL (WELLBUTRIN Take 300 mg by Duplicate Therapy 06/03/2010 ORAL) mouth. documented as of this encounter Historical Medications This list may reflect changes made after this encounter. Medication Sig Dispensed Refills Start Date End Date [place]-3 Fatty Take by mouth. 0 012 Acids-Vitamin E (FISH OIL) 1,000 mg Cap buPROPion (WELLBUTRIN XL) Take 300 mg by mouth 0 06/21/2010 300 mg XL tablet daily. added in this encounter Care Teams Court Of Appeals Judge Relationship Specialty Start Date End Date Evert Perdomo MD PCP - General 10/13/08 05/13/[address] [place] [phone] documented as of this encounter
--- OUTSIDE RECORDS SUMMARY | 2021-11-29 00:33 | XMS_ITS | Encounter Summary ---
:1970 Author Organization [facility] Address [address] [place] [address] Care Team Providers Name Role Phone Evert Perdomo MD Primary Care Provider Reason for Visit Reason Onset Date Comments Medications Refill 11/08/2009 Encounter Details Date Type Department Care Team Description 11/08/2009 Refill [facility] Adult Evert Perdomo MD Medications Refill Primary Care - [address] [address] [phone] (Wo rk) Social History Tobacco Use Types [...] Take 1 Tab by 28 Tab 0 200912/10/2009 27 mg CR tablet mouth daily for 28 days. documented in this encounter Miscellaneous Notes Telephone Encounter - Cristiane Bautista - 11/09/2009 1457 EDT In drawer for p/u elephone Encounter - Melanie Oconnor RN - 11/09/2009 0911 EDT There was no end date on the last prescription, pended this one with an end date. Telephone Encounter - Cristiane Bautista - 11/08/2009 1658 EDT Pt requesting refill for Concerta, 27mg, 1 PO daily, #28, has enough to get her through the weekend but would like to p/u script tomorrow. documented in this encounter Plan of Treatment Upcoming Encounters Date Type Specialty Care Team Description 12/16/2021 Appointment Infusion Therapy 04/15/2022 Office Visit Hematology and Oncology Poppy Felton PA-C 111 [facility], [facility] 2 [place], [place] [phone] (Wo rk) 05/30/2022 Office Visit Surgical Oncology Asa Cameron MD 111 [facility], [facility] 2 [place], [place] [phone] (Wo rk) documented as of this encounter Visit Diagnoses Not on filedocumented in this encounter Discontinued Medications Medication Sig Discontinue Reason Start Date End Date methylphenidate (CONCERTA) Take 1 Tab by Reorder 10/11/2009 11/09/2009 27 mg CR tablet mouth daily. documented as of this encounter Care Teams Neon Glass Blower Relationship Specialty Start Date End Date Evert Perdomo MD PCP - General 10/13/08 05/13/[address] [address] documented as of this encounter
--- OUTSIDE RECORDS SUMMARY | 2021-11-29 00:33 | XMS_ITS | Encounter Summary ---
:1970 Author Organization [facility] Address [address] [place] [address] Care Team Providers Name Role Phone Evert Perdomo MD Primary Care Provider Reason for Visit Reason Onset Date Comments Medications Refill 10/10/2009 Encounter Details Date Type Department Care Team Description 10/10/[address] [facility] Adult Evert Perdomo MD Medications Refill Primary Care - [address] [address] [phone] (Wo rk) Social History Tobacco Use Types [...] Take 1 Tab by 28 Tab 0 200911/09/2009 27 mg CR tablet mouth daily. documented in this encounter Miscellaneous Notes Telephone Encounter - Audelia Richardson - 10/12/[address] Leavitt printed this on but did not sign it. Can you please redo and sign. Patient needs to citrus picker this a.m. elephone Encounter - Mamta León RN - 10/11/2009 1623 EDT This was last written 09/11/09. elephone Encounter - Cristiane Bautista - 10/11/2009 1533 EDT Call when ready to p/u elephone Encounter - Charlotte Lynne - 10/10/2009 1547 EDT CONCERTA 27 MG 1 DAILY Call pt when ready for pick up documented in this encounter Plan of Treatment Upcoming Encounters Date Type Specialty Care Team Description 12/16/2021 Appointment Infusion Therapy 04/15/2022 Office Visit Hematology and Oncology Poppy Felton PA-C [address] [phone] (Wo rk) 05/30/2022 Office Visit Surgical Oncology Asa Cameron MD [address] [phone] (Wo rk) documented as of this encounter Visit Diagnoses Not on filedocumented in this encounter Discontinued Medications Medication Sig Discontinue Reason Start Date End Date methylphenidate (CONCERTA) Take 1 Tab by Reorder 09/11/2009 10/11/2009 27 mg CR tablet mouth daily. documented as of this encounter Care Teams Piece Dyer Relationship Specialty Start Date End Date Evert Perdomo MD PCP - General 10/13/08 05/13/[address] [address] documented as of this encounter
--- OUTSIDE RECORDS SUMMARY | 2021-11-29 00:33 | XMS_ITS | Encounter Summary ---
:1970 Author Organization [facility] Address [address] [place] [address] Care Team Providers Name Role Phone Unavailable Primary Care Provider Unavailable Encounter Details Date Type Department Care Team Description 03/19/2005 Hospital Encounter [facility]- Taco Rucker [facility] MD Lizandro 790 [facility] [address] [place] [address] [facility] [phone] [place] [address] (Wo rk) Social History Tobacco Use Types [...] Hematology and Oncology Poppy Felton PA-C 111 [facility], [facility] 2 [place], [place] [phone] (Wo rk) 05/30/2022 Office Visit Surgical Oncology Asa Cameron MD 111 [facility], [facility] 2 [place], [place] [phone] (Wo rk) documented as of this encounter Visit Diagnoses Not on filedocumented in this encounter
--- OUTSIDE RECORDS SUMMARY | 2021-11-29 00:33 | XMS_ITS | Encounter Summary ---
:1970 Author Organization [facility] Address [address] [place] [address] Care Team Providers Name Role Phone Evert Perdomo MD Primary Care Provider Encounter Details Date Type Department Care Team Description 05/01/2009 Abstract [facility] Adult Evert Perdomo MD Primary Care - [address] [address] [phone] (Wo rk) Social History Tobacco Use Types [...] Hematology and Oncology Poppy Felton PA-C 111 [facility], [facility] 2 [place], [place] [phone] (Wo rk) 05/30/2022 Office Visit Surgical Oncology Asa Cameron MD 111 [facility], [facility] 2 [place], [place] [phone] (Wo rk) documented as of this encounter Visit Diagnoses Not on filedocumented in this encounter Historical Medications This list may reflect changes made after this encounter. Medication Sig Dispensed Refills Start Date End Date LEVONORGESTREL-ETH ESTRA Take by mouth. 0 08/11/2011 (AVIANE ORAL) added in this encounter Care Teams Retreader Relationship Specialty Start Date End Date Evert Perdomo MD PCP - General 10/13/08 05/13/[address] [address] documented as of this encounter
--- OUTSIDE RECORDS SUMMARY | 2021-11-29 00:33 | XMS_ITS | Encounter Summary ---
:1970 Author Organization [facility] Address [address] [place] [address] Care Team Providers Name Role Phone Unavailable Primary Care Provider Unavailable Encounter Details Date Type Department Care Team Description 07/27/2001 Hospital Encounter [facility] Pramod Scott MD [address] [place], [place] [address] Other Unknown, Provider, [address] [place] [address] Social History Tobacco Use Types Packs/Day Years [...] Hematology and Oncology Poppy Felton PA-C 111 [facility], [facility] 2 [place], [place] [phone] (Wo rk) 05/30/2022 Office Visit Surgical Oncology Asa Cameron MD 111 [facility], [facility] 2 [place], [place] [phone] (Wo rk) documented as of this encounter Procedures Procedure Name Priority Date/Time Associated Diagnosis Comme nts CYTOPATHOLOGY Routine 07/27/2001 0:00 EDT Results for this procedure are i n the results section . documented in this encounter Results CYTOPATHOLOGY (07/27/2001 0:00 EDT) Pathology Report: CYTOPATHOLOGY REPORT [facility] Reports generated via electronic interface contain masha ginal data; however they are lacking the format of the original re port. Caution should be taken when reading/interpreting unfo rmatted reports. Name: ? JIA BOTELLO ? Accession #: ? [id number] : ? 1970 (Age: 31) ??F ?Collect Date: ? 05/2001 Location: ? RG ? Receive Date : ? 07/29/2001 Provider: ?PRAMOD SCOTT MD Copy to: ? Specimen/Source: ?ThinPrep Pap Test, Cervix/ Endocervix Last Menstrual Period: ? Menstrual/ Status: ? Post : 6 week check Other: ? DHPV - HPV testing requested if ASCUS/BALA on the curr ent ThinPrep Pap test. ? SPECIMEN ADEQUACY ? Satisfactory for Evaluation - transformation zone component present GENERAL CATEGORIZATION ? Negative for Intraepithelial Lesion or Malignan cy ? Document reviewed and electronically signed by: ? Samanta Emmanuel, ??SCT(ASCP) ? Report Date: ??07/30/2001 11:15 End of Report Specimen Performing Organization Address City/State/ZIP Code Phon e Number [facility] [address] [place] [address] SERVICES [facility] [address] [place] [address] documented in this encounter Visit Diagnoses Not on filedocumented in this encounter
--- OUTSIDE RECORDS SUMMARY | 2021-11-29 00:33 | XMS_ITS | Encounter Summary ---
:1970 Author Organization [facility] Address [address] [place] [address] Care Team Providers Name Role Phone Evert Perdomo MD Primary Care Provider Encounter Details Date Type Department Care Team Description 06/05/2009 Abstract [facility] Adult Evert Perdomo MD Primary Care - [address] [address] [phone] (Wo rk) Social History Tobacco Use Types [...] Hematology and Oncology Poppy Felton PA-C 111 [facility] 2 [place], [place] [phone] (Wo rk) 05/30/2022 Office Visit Surgical Oncology Asa Cameron MD 111 [facility] 2 [place], [place] [phone] (Wo rk) documented as of this encounter Visit Diagnoses Not on filedocumented in this encounter Care Teams Circuit Breaker Assembler Relationship Specialty Start Date End Date Evert Perdomo MD PCP - General 10/13/08 05/13/[address] [address] documented as of this encounter
--- OUTSIDE RECORDS SUMMARY | 2021-11-29 00:33 | XMS_ITS | Encounter Summary ---
:1970 Author Organization [facility] Address [address] [place] [address] Care Team Providers Name Role Phone Evert Perdomo MD Primary Care Provider Barbara Moreno MD Primary Care Provider Encounter Details Date Type Department Care Team Description 04/08/2004 Results Only [facility] - Nicolle Akbar conversion MD 111 [facility] [address] [place], [place] [address] [place] [phone] (Wo rk) Social History Tobacco Use Types [...] 04/15/2022 Office Visit Hematology and Oncology Felton, Lenox M, PA-C 111 [facility] 2 [place], [place] [phone] (Wo rk) 05/30/2022 Office Visit Surgical Oncology Asa Cameron MD 111 [facility] 2 [place], [place] [phone] (Wo rk) documented as of this encounter Procedures Procedure Name Priority Date/Time Associated Diagnosis Comme nts TSH Routine 04/08/2004 16:30 EST Results for this procedure are i n the results section . documented in this encounter Results TSH (04/08/2004 16:30 EST) Pathologist Sig nature TSH 1.28 0.35 - 5.50 uIU/ml [facility] Specimen Performing Organization Address City/State/ZIP Code Phon e Number [facility] [address] [place] [address] SERVICES [facility] [address] [place] [address] documented in this encounter Visit Diagnoses Not on filedocumented in this encounter Care Teams Building Manager Relationship Specialty Start Date End Date Evert Perodmo MD PCP - General 10/13/08 05/13/[address] [address] Barbara Moreno MD PCP - General 08/02/08 10/12/08 1 [facility] [place] 1 [place] [address] documented as of this encounter
--- OUTSIDE RECORDS SUMMARY | 2021-11-29 00:33 | XMS_ITS | Encounter Summary ---
:1970 Author Organization [facility] Address [address] [place] [address] Care Team Providers Name Role Phone Unavailable Primary Care Provider Unavailable Encounter Details Date Type Department Care Team Description 12/06/2007 Hospital Encounter [facility] - Carlos Avina, Other PA [address] [address] [place], [place] [phone] Social History Tobacco Use Types Packs/Day Years [...] Therapy 04/15/2022 Office Visit Hematology and Oncology Ppopy Felton, PA-C 111 [facility] venue [facility], [facility], Level 2 [place], [place] [address] (Wo rk) 05/30/2022 Office Visit Surgical Oncology Asa Cameron MD 111 [place] [facility] venue [facility], [facility], [facility] 2 [place], [place] [address] (Wo rk) documented as of this encounter Procedures Procedure Name Priority Date/Time Associated Comments Diagnosis TESTS ADDED BY PHONE Routine 12/13/2007 12:15 Res ults for this EDT procedure are i n the results section. LYME ANTIBODY Routine 12/13/2007 12:15 Results fo r this EDT procedure are i n the results section. HIV 1/2 ANTIGEN AND Routine 12/13/2007 12:15 Resu lts for this ANTIBODY, 4TH EDT procedure are in GENERATION the results section. C REACTIVE PROTEIN Routine 12/13/2007 12:15 Resul ts for this EDT procedure are i n the results section. COMPLETE BLOOD COUNT Routine 12/06/2007 16:59 Res ults for this AND DIFFERENTIAL EDT procedure a re in the results section. documented in this encounter Results LYME ANTIBODY (12/13/2007 12:15 EDT) Pathologist Sig nature Lyme Ab Negative NEGAT [facility] Specimen Performing Organization Address City/[facility] Code Phon e Number [facility] [address] [place] [address] SERVICES [facility] [address] [place] [address] HIV ANTIBODY (12/13/2007 12:15 EDT) HIV 1/2 Antibody Negative [facility] Reference Range: ??Negative Specimen Performing Organization Address City/[facility]/ZIP Code Phon e Number [facility] [address] [place] [address] SERVICES [facility] [address] [place] [address] TESTS ADDED BY PHONE (12/13/2007 12:15 EDT) Pathologist Sig nature Tests to be added HIV [facility] Diagnosis Code SAME [facility] Who Called [facility] Location Code [facility] Specimen Performing Organization Address City/State/ZIP Code Phon e Number [facility] [address] [place] [address] SERVICES [facility] [address] [place] [address] C-REACTIVE PROTEIN (12/13/2007 12:15 EDT) Pathologist Sig nature C-Reactive Protein <0.7 <1.0 mg/dl [facility] Specimen Performing Organization Address City/State/ZIP Code Phon e Number [facility] [address] [place] [address] SERVICES [facility] [address] [place] [address] HEMAGRAM AND DIFFERENTIAL (12/06/2007 16:59 EDT) Pathologist Sig nature WBC 6.12 4.0 - 12.4 K/cmm [facility] RBC 4.19 3.86 - 5.04 M/cmm [facility] Hemoglobin 12.8 11.6 - 15.2 gm/dl [facility] HCT 37.7 34.9 - 44.4 % [facility] MCV 90 81 - 98 fl [facility] MCH 30.5 26.7 - 33.3 pg [facility] MCHC 33.9 32.1 - 35.9 gm/dl [facility] PLT 242 141 - 320 K/cmm [facility] RDW-CV 12.1 11.7 - 14.6 % [facility] Neutrophils 52.5 45.5 - 79.7 % [facility] Lymphocytes 37.6 15.0 - 46.8 % [facility] Monocytes 7.8 1.8 - 12.0 % [facility] Eosinophils 1.7 0.6 - 6.9 % [facility] Basophils 0.4 0.2 - 1.4 % [facility] ABS Neutrophils 3.21 2.20 - 8.85 K/cmm [facility] ABS Lymphs 2.30 1.09 - 3.30 K/cmm [facility] ABS Monocytes 0.48 0.1 - 0.8 K/cmm [facility] ABS Eosinophils 0.11 0.03 - 0.61 K/cmm [facility] ABS Basophils 0.02 0.01 - 0.11 K/cmm [facility] Type of Diff: Automated [facility] Specimen Performing Organization Address City/State/ZIP Code Phon e Number [facility] [address] [place] [address] SERVICES [facility] [address] [place] [address] documented in this encounter Visit Diagnoses Not on filedocumented in this encounter
--- OUTSIDE RECORDS SUMMARY | 2021-11-29 00:33 | XMS_ITS | Encounter Summary ---
:1970 Author Organization [facility] Address [address] [place] [address] Care Team Providers Name Role Phone Evert Perdomo MD Primary Care Provider Encounter Details Date Type Department Care Team Description 12/25/2008 Hospital Encounter [facility] - Nika Charles Other MD [address] [address] [address] [place] [address] (Wo rk) Social History Tobacco Use Types [...] Poppy Felton PA-C 111 [facility], [facility] 2 [place], [place] [phone] (Wo rk) 05/30/2022 Office Visit Surgical Oncology Asa Cameron MD 111 [facility] 2 [place], [place] [address] (Wo rk) documented as of this encounter Visit Diagnoses Not on filedocumented in this encounter Care Teams Engineering Manager Electronics Relationship Specialty Start Date End Date Evert Perdomo MD PCP - General 10/13/08 05/13/[address] [address] documented as of this encounter
--- OUTSIDE RECORDS SUMMARY | 2021-11-29 00:33 | XMS_ITS | Encounter Summary ---
:1970 Author Organization [facility] Address [address] [place] [address] Care Team Providers Name Role Phone Evert Perdomo MD Primary Care Provider Reason for Visit Reason Onset Date Comments Medications Refill 06/04/2009 Encounter Details Date Type Department Care Team Description 06/04/2009 Refill [facility] Adult Evert Predomo MD Medications Refill Primary Care - [phone] [place] [phone] (Wo rk) Social History Tobacco Use Types [...] Take 1 Tab by 30 Tab 0 200907/09/2009 27 mg CR tablet mouth daily. documented in this encounter Miscellaneous Notes Telephone Encounter - Cristiane Bautista - 06/05/2009 1423 EDT Pt called [facility], because the med is a controlled they will fill it for a 30 day supply at a local pharmacy. It is more expensive, about 8.00 per month which she said does add up. Would like to get 90 day supply in the future for mailorder to save money. 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 Said she would discuss w/Dr. Perdomo at next appt. elephone Encounter - Cristiane Bautista - 06/05/[address] Perdomo is not comfortable writing for 90 day supply due to controlled med. Pt checking w/ins to see if they will pay for 30 day supply. Xpld is here ready for p/u. Telephone Encounter - Cristiane Bautista - 06/04/2009 1533 EDT Needs refill for Concerta, 24mg, 1 PO daily. Needs 90 day supply. Insurance will not pay for it unless it is a 90 day supply after 3 months unless she does mail order. documented in this encounter Plan of Treatment Upcoming Encounters Date Type Specialty Care Team Description 12/16/2021 Appointment Infusion Therapy 04/15/2022 Office Visit Hematology and Oncology Poppy Felton PA-C 111 [facility], [facility] 2 [place], [place] [phone] (Wo rk) 05/30/2022 Office Visit Surgical Oncology Asa Cameron MD 111 [facility] 2 [place], [place] [phone] (Wo rk) documented as of this encounter Visit Diagnoses Not on filedocumented in this encounter Discontinued Medications Medication Sig Discontinue Reason Start Date End Date methylphenidate (CONCERTA) Take 36 mg by 06/05/2009 36 mg CR tablet mouth. methylphenidate (RITALIN) 20 Take 20 mg by 06/05/2009 mg tablet mouth. documented as of this encounter Care Teams Quality Assurance Lead Relationship Specialty Start Date End Date Evert Perdomo MD PCP - General 10/13/08 05/13/[address] [place] [address] documented as of this encounter
--- OUTSIDE RECORDS SUMMARY | 2021-11-29 00:33 | XMS_ITS | Encounter Summary ---
:1970 Author Organization [facility] Address [address] [place] [address] Care Team Providers Name Role Phone Evert Perdomo MD Primary Care Provider Barbara Moreno MD Primary Care Provider Philip Schulz MD Primary Care Provider Jia Minor PA-C Primary Care Provider Unavailable Filomena Ochoa PA-C Primary Care Provider [phone] Encounter Details Date Type Department Care Team Description 09/22/2002 Hospital Encounter [facility] - Keri Briceno MD [address] [place] [phone] Other Roman Scott MD [address] [place], [place] [address] 111 [place], [place] [address] Social History Tobacco Use Types Packs/Day Years [...] Hematology and Oncology Poppy Felton PA-C [address] [phone] (Wo rk) 05/30/2022 Office Visit Surgical Oncology Asa Cameron MD [address] [phone] (Wo rk) documented as of this encounter Procedures Procedure Name Priority Date/Time Associated Diagnosis Comme nts CYTOPATHOLOGY Routine 09/22/2002 0:00 EDT Results for this procedure are i n the results section . documented in this encounter Results CYTOPATHOLOGY (09/22/2002 0:00 EDT) Pathology Report: CYTOPATHOLOGY REPORT [facility] Reports generated via electronic interface contain masha ginal data; however they are lacking the format of the original re port. Caution should be taken when reading/interpreting unfo rmatted reports. Name: ? JIA BOTELLO ? Accession #: ? [id number] : ? 1970 (Age: 32) ??F ?Collect Date: ? 08/25 Location: ? [facility] ? Receive Date : ? 09/26/2002 Provider: ?KRYSTAL BRICENO MD Copy to: ? Specimen/Source: ?ThinPrep Pap Test, Cervix/ Endocervix Last Menstrual Period: ? 09/09/02 ? SPECIMEN ADEQUACY ? Satisfactory for Evaluation - transformation zone component present GENERAL CATEGORIZATION ? Negative for Intraepithelial Lesion or Malignan cy ? Document reviewed and electronically signed by: ? NARCISA Fulton(ASCP) ? Report Date: ??09/28/2002 08:06 End of Report Specimen Performing Organization Address City/State/ZIP Code Phon e Number [facility] [address] [place] [address] SERVICES [facility] [address] [place] [address] documented in this encounter Visit Diagnoses Not on filedocumented in this encounter Additional Health Concerns Infection Onset Date Last Indicated Resolved Time R/O COVID-19 10/16/2019 10/16/2019 10/21/2019 22:15 EDT documented as of this encounter Care Teams Research & Insights Executive Relationship Specialty Start Date End Date Evert Perdomo MD PCP - General 10/13/08 05/13/16 108 [facility] [address] [place] [address] Barbara Moreno MD PCP - General 08/02/08 10/12/08 1 [facility] Level 1 [place] [address] Philip Schulz MD PCP - General 05/14/16 12/06/[address] [place] [address] Jia Minor PA-C PCP - General 12/07/1703/01/18 Filomena Ochoa PA-C PCP - General 03/02/18 2 [place] [address] documented as of this encounter
--- OUTSIDE RECORDS SUMMARY | 2021-11-29 00:33 | XMS_ITS | Encounter Summary ---
:1970 Author Organization [facility] Address [address] [place] [address] Care Team Providers Name Role Phone Evert Perdomo MD Primary Care Provider Reason for Visit Reason Onset Date Comments Medications Refill 09/11/2009 Encounter Details Date Type Department Care Team Description 09/11/2009 Refill [facility] Adult Evert Perdomo MD Medications Refill Primary Care - [phone] [place] [address] [phone] (Wo rk) Social History Tobacco Use Types [...] Take 1 Tab by 28 Tab 0 200910/11/2009 27 mg CR tablet mouth daily. documented in this encounter Miscellaneous Notes Telephone Encounter - Mamta Mayorga - 09/12/2009 1624 EDT SCRIPT IN DRAWER documented in this encounter Plan of Treatment Upcoming Encounters Date Type Specialty Care Team Description 12/16/2021 Appointment Infusion Therapy 04/15/2022 Office Visit Hematology and Oncology Poppy Felton, MARINAC 111 [facility], [facility] 2 [place], [place] [phone] (Wo rk) 05/30/2022 Office Visit Surgical Oncology Asa Cameron MD 111 [facility], [facility] 2 [place] [phone] (Wo rk) documented as of this encounter Visit Diagnoses Not on filedocumented in this encounter Care Teams Continuous Improvement Manager Relationship Specialty Start Date End Date Evert Perdomo MD PCP - General 10/13/08 05/13/[address] [phone] documented as of this encounter
--- OUTSIDE RECORDS SUMMARY | 2021-11-29 00:33 | XMS_ITS | Encounter Summary ---
:1970 Author Organization [facility] Address [address] [place] [address] Care Team Providers Name Role Phone Evert Perdomo MD Primary Care Provider Reason for Visit Reason Onset Date Comments Medications Refill 11/29/2009 Encounter Details Date Type Department Care Team Description 11/29/2009 Refill [facility] Adult Evert Perdomo MD Medications Refill Primary Care - [phone] [place] [phone] (Wo rk) Social History Tobacco Use Types [...] mg Take 1.5 Tabs by 45 Tab 11 10/0 08/2009 04/08/2010 tablet mouth at bedtime. [id number] by mouth. documented in this encounter Miscellaneous Notes Telephone Encounter - Evert Perdomo MD - 11/29/2009 2226 EDT Ordered 75mg Telephone Encounter - Cristiane Bautista - 11/29/2009 1358 EDT Pt RX'd Trazodone. Was RX'd as 50mg. When she saw Dr. Espino she was taking 75mg. She has gone back to taking 75mg which is working for her. She would like new RX for 75mg. documented in this encounter Plan of Treatment Upcoming Encounters Date Type Specialty Care Team Description 12/16/2021 Appointment Infusion Therapy 04/15/2022 Office Visit Hematology and Oncology Poppy Felton, PAChuyC [address] [phone] (Wo rk) 05/30/2022 Office Visit Surgical Oncology Asa Cameron MD [address] [phone] (Wo rk) documented as of this encounter Visit Diagnoses Not on filedocumented in this encounter Discontinued Medications Medication Sig Discontinue Reason Start Date End Date trazodone (DESYREL) 50 mg Take 50 mg by 1 tablet mouth. documented as of this encounter Care Teams Entry Manager Relationship Specialty Start Date End Date Evert Perdomo MD PCP - General 10/13/08 05/13/[address] [address] documented as of this encounter
--- OUTSIDE RECORDS SUMMARY | 2021-11-29 00:33 | XMS_ITS | Encounter Summary ---
:1970 Author Organization [facility] Address [address] [place] [address] Care Team Providers Name Role Phone Evert Perdomo MD Primary Care Provider Reason for Visit Reason Onset Date Comments Medications Refill 03/11/2010 Encounter Details Date Type Department Care Team Description 03/11/2010 Refill [facility] Adult Evert Perdomo MD Medications Refill Primary Care - [address] [address] [phone] (Wo rk) Social History Tobacco Use Types [...] Take 1 Tab by 30 Tab 0 201004/08/2010 27 mg CR tablet mouth daily. documented in this encounter Miscellaneous Notes Telephone Encounter - Charlotte Lynne - 03/11/2010 1735 EST Pt aware script ready elephone Encounter - Filomena Ochoa PA-C - 03/11/2010 1726 EST Script written, up front. elephone Encounter - Lucero Ly RN - 03/11/2010 1622 EST Patient due elephone Encounter - Cristiane Bautista - 03/11/2010 1532 EST Call when ready Pt left RX refill message left in voicemail for Concerta ER, 27mg. documented in this encounter Plan of Treatment Upcoming Encounters Date Type Specialty Care Team Description 12/16/2021 Appointment Infusion Therapy 04/15/2022 Office Visit Hematology and Oncology Poppy Felton PA-C [address] [phone] (Wo rk) 05/30/2022 Office Visit Surgical Oncology Asa Cameron MD [address] [phone] (Wo rk) documented as of this encounter Visit Diagnoses Not on filedocumented in this encounter Discontinued Medications Medication Sig Discontinue Reason Start Date End Date methylphenidate (CONCERTA) Take 1 Tab by Reorder 02/06/2010 03/11/2010 27 mg CR tablet mouth daily. documented as of this encounter Care Teams Echo Tech Relationship Specialty Start Date End Date Evert Perdomo MD PCP - General 10/13/08 05/13/[address] [address] documented as of this encounter
--- OUTSIDE RECORDS SUMMARY | 2021-11-29 00:33 | XMS_ITS | Encounter Summary ---
:1970 Author Organization [facility] Address [address] [place] [address] Care Team Providers Name Role Phone Evert Perdomo MD Primary Care Provider Barbara Moreno MD Primary Care Provider Encounter Details Date Type Department Care Team Description 12/29/2005 Results Only [facility] - Nicolle Akbar conversion MD 111 [facility] 30 [place], [place] [phone] [place] [phone] (Wo rk) Social History Tobacco Use Types [...] 04/15/2022 Office Visit Hematology and Oncology Felton, [place] M, PA-C 111 [facility], [facility] 2 [place], [place] [phone] (Wo rk) 05/30/2022 Office Visit Surgical Oncology Asa Cameron MD 111 [place] [facility] 2 [place] [address] (Wo rk) documented as of this encounter Procedures Procedure Name Priority Date/Time Associated Diagnosis Comme nts CYTOPATHOLOGY Routine 12/29/2005 0:00 EST Results for this procedure are i n the results section . documented in this encounter Results CYTOPATHOLOGY (12/29/2005 0:00 EST) Pathology Report: CYTOPATHOLOGY REPORT [facility] Reports generated via electronic interface contain masha ginal data; however they are lacking the format of the original re port. Caution should be taken when reading/interpreting unfo rmatted reports. Name: ? ROSMERYJIA Ester ? Accession #: ? [id number] : ? 1970 (Age: 35) ??F ?Collect Date: ? 07/2005 Location: ? [facility] ? Receive Date : ? 12/30/2005 Provider: ?NICOLLE LONDONO MD Copy to: ? Specimen/Source: ? ThinPrep Pap Test, Cervix/Endocervix, processed on RelayPrep Imaging System, with manual evaluation Last Menstrual Period: ? 10.20.06 Other: ? HPVDX - HPV testing requested regardless of diag nosis on current ThinPrep Pap test. ? SPECIMEN ADEQUACY ? Satisfactory for Evaluation - transformation zone component present GENERAL CATEGORIZATION ? Negative for Intraepithelial Lesion or Malignan cy ? Document reviewed and electronically signed by: ? Nicolle Myers, ALANA(ASCP) ? Report Date: ??01/06/2006 14:18 End of Report Specimen Performing Organization Address City/State/ZIP Code Phon e Number [facility] [address] [place] [address] SERVICES [facility] [address] [place] [address] documented in this encounter Visit Diagnoses Not on filedocumented in this encounter Care Teams School Standards Coach Relationship Specialty Start Date End Date Evert Perdomo MD PCP - General 10/13/08 05/13/16 108 [facility] [address] [place], [place] [phone] Barbara Moreno MD PCP - General 08/02/08 10/12/08 1 [facility] Level 1 [place] [phone] documented as of this encounter
--- OUTSIDE RECORDS SUMMARY | 2021-11-29 00:33 | XMS_ITS | Encounter Summary ---
:1970 Author Organization [facility] Address [address] [place] [address] Care Team Providers Name Role Phone Evert Perdomo MD Primary Care Provider Reason for Visit Reason Onset Date Comments Medications Refill 05/13/2010 Encounter Details Date Type Department Care Team Description 05/13/2010 Refill [facility] Adult Evert Perdomo MD Medications Refill Primary Care - [address] [address] [phone] (Wo rk) Social History Tobacco Use Types [...] Take 1 Tab by 28 Tab 0 201006/11/2010 27 mg CR tablet mouth daily for 28 days. documented in this encounter Miscellaneous Notes Telephone Encounter - Charlotte Lynne - 05/15/2010 1426 EDT Script in drawer Telephone Encounter - Mamta Mayorga - 05/14/2010 1450 EDT CALL PATIENT WHEN READY [phone] elephone Encounter - Jia Russo - 05/13/2010 1653 EDT Pt called for refill of concerta 27mg daily. Is out of med tomorrow. Will call to see if it is ready. documented in this encounter Plan of Treatment Upcoming Encounters Date Type Specialty Care Team Description 12/16/2021 Appointment Infusion Therapy 04/15/2022 Office Visit Hematology and Oncology Poppy Felton, PAChuyC 111 [facility], [facility] 2 [place], [place] [phone] (Wo rk) 05/30/2022 Office Visit Surgical Oncology Asa Cameron MD 111 [facility], [facility] 2 [place], [place] [phone] (Wo rk) documented as of this encounter Visit Diagnoses Not on filedocumented in this encounter Care Teams Architectural Associate Relationship Specialty Start Date End Date Evert Perdomo MD PCP - General 10/13/08 05/13/[address] [address] documented as of this encounter
--- OUTSIDE RECORDS SUMMARY | 2021-11-29 00:33 | XMS_ITS | Encounter Summary ---
:1970 Author Organization [facility] Address [address] [place] [address] Care Team Providers Name Role Phone Evert Perdomo MD Primary Care Provider Reason for Visit Reason Onset Date Comments Medications Refill 04/08/2010 Encounter Details Date Type Department Care Team Description 04/08/[address] [facility] Adult Evert Perdomo MD Medications Refill Primary Care - [address] [address] [phone] (Wo rk) Social History Tobacco Use Types [...] Take 1 Tab by 28 Tab 0 201005/08/2010 27 mg CR tablet mouth daily for 28 days. trazodone (DESYREL) 50 mg Take 1.5 Tabs by 135 Tab 3 03/2603/19/2011 tablet mouth at bedtime. [id number] by mouth. documented in this encounter Miscellaneous Notes Telephone Encounter - Cristiane Bautista - 04/10/2010 0914 EST Trazodone faxed to [facility], Tatyanaa in drawer to p/u elephone Encounter - Melanie Oconnor RN - 04/08/2010 1745 EST Last Concerta script was 03/11, #30. elephone Encounter - Cristiane Bautista - 04/08/2010 1515 EST Pt left RX refill message left in voicemail for two meds: 1) Trazodone to go to [facility] 2) Concerta, 27 mg, 1 daily, #28 documented in this encounter Plan of Treatment Upcoming Encounters Date Type Specialty Care Team Description 12/16/2021 Appointment Infusion Therapy 04/15/2022 Office Visit Hematology and Oncology Poppy Felton PA-C 111 [facility], [facility] 2 [place], [place] [phone] (Wo rk) 05/30/2022 Office Visit Surgical Oncology Asa Cameron MD 111 [facility], [facility] 2 [place], [place] [phone] (Wo rk) documented as of this encounter Visit Diagnoses Not on filedocumented in this encounter Discontinued Medications Medication Sig Discontinue Reason Start Date End Date trazodone (DESYREL) 50 mg Take 1.5 Tabs by Reorder 11/29/2009 04/08/2010 tablet mouth at bedtime. [id number] by mouth. methylphenidate (CONCERTA) Take 1 Tab by Reorder 03/11/2010 04/08/2010 27 mg CR tablet mouth daily. documented as of this encounter Care Teams Interactive Media Project Manager Relationship Specialty Start Date End Date Evert Perdomo MD PCP - General 10/13/08 05/13/[address] [place] [address] documented as of this encounter
--- OUTSIDE RECORDS SUMMARY | 2021-11-29 00:33 | XMS_ITS | Encounter Summary ---
:1970 Author Organization [facility] Address [address] [place] [address] Care Team Providers Name Role Phone Evert Perdomo MD Primary Care Provider Barbara Moreno MD Primary Care Provider Philip Schulz MD Primary Care Provider Jia Minor PA-C Primary Care Provider Unavailable Filomena Ochoa PA-C Primary Care Provider [phone] Encounter Details Date Type Department Care Team Description 10/05/2000 Hospital Encounter [facility] [address] [address] [place] [phone] Social History Tobacco Use Types Packs/Day Years [...] Visit Hematology and Oncology Poppy Felton PA-C [address] [place] [phone] (Wo rk) 05/30/2022 Office Visit Surgical Oncology Asa Cameron MD [address] [phone] (Wo rk) documented as of this encounter Procedures Procedure Name Priority Date/Time Associated Diagnosis Comme nts PROFILE Routine 10/05/2000 10:10 Results for this EDT procedure are i n the results section. QUANT BETA HCG, Routine 10/05/2000 10:10 Results for this EDT procedure are i n the results section. documented in this encounter Results HCG (10/05/2000 10:10 EDT) Pathologist Sig nature HCG 825 mIU/ml [facility] Comment: <4 = Negative 4-10 = Borderline, recommend repeat. Specimen Performing Organization Address City/State/ZIP Code Phon e Number [facility] [address] [place] [address] SERVICES [facility] [address] [place] [address] PROFILE (10/05/2000 10:10 EDT) ABO and Rh Type O POS [facility] Antibody Screen Neg [facility] WBC 5.23 4.0 - 12.4 [facility] K/cmm [facility] RBC 4.33 3.86 - 5.04 [facility] M/cmm [facility] Hemoglobin 13.0 11.6 - 15.2 [facility] gm/dl LAB HCT 38.6 34.9 - 44.4 % [facility] MCV 89 81 - 98 fl [facility] MCH 30.1 26.7 - 33.3 [facility] pg LAB MCHC 33.7 32.1 - 35.9 [facility] gm/dl LAB PLT 248 141 - 320 [facility] K/cmm [facility] RDW-CV 12.9 11.7 - 14.6 % [facility] Hepatitis B Surface Neg [facility] Ag [facility] Neutrophils 53.5 45.5 - 79.7 % [facility] Lymphocytes 36.4 15.0 - 46.8 % [facility] Monocytes 8.5 1.8 - 12.0 % [facility] Eosinophils 1.0 0.6 - 6.9 % [facility] Basophils 0.6 0.2 - 1.4 % [facility] ABS Neutrophils 2.80 2.20 - 8.85 [facility] ABS Lymphs 1.90 1.09 - 3.30 [facility] ABS Monocytes 0.45 0.1 - 0.8 [facility] ABS Eosinophils 0.05 0.03 - 0.61 [facility] ABS Basophils 0.03 0.01 - 0.11 [facility] Type of Diff: Automated [facility] Syphilis Sero (RPR) NONREACT. NR Dils [facility] Rubella IgG Scr Antibody detected [facility] Specimen Performing Organization Address City/State/ZIP Code Phon e Number [facility] [address] [place] [address] SERVICES [facility] [address] [place] [address] documented in this encounter Visit Diagnoses Not on filedocumented in this encounter Additional Health Concerns Infection Onset Date Last Indicated Resolved Time R/O COVID-19 10/16/2019 10/16/2019 10/21/2019 22:15 EDT documented as of this encounter Care Teams Flask Pusher Relationship Specialty Start Date End Date Evert Perdomo MD PCP - General 10/13/08 05/13/16 108 [facility] [address] [place], [place] [address] Barbara Moreno MD PCP - General 08/02/08 10/12/08 1 [facility] Level 1 [place] [phone] Philip Schulz MD PCP - General 05/14/16 12/06/[address] [place] [address] Jia Minor PA-C PCP - General 12/07/1703/01/18 Filomena Ochoa PA-C PCP - General 03/02/18 2 [place] [phone] documented as of this encounter
--- OUTSIDE RECORDS SUMMARY | 2021-11-29 00:33 | XMS_ITS | Encounter Summary ---
:1970 Author Organization [facility] Address [address] [place] [address] Care Team Providers Name Role Phone Unavailable Primary Care Provider Unavailable Encounter Details Date Type Department Care Team Description 01/07/2008 Hospital Encounter [facility] MD [place] 790 [facility] 790 [place] [address] [facility] [phone] [place] [address] (Wo rk) Social History Tobacco Use Types [...] Oncology Poppy Felton PA-C 111 [facility], [facility] 2 [place], [place] [phone] (Wo rk) 05/30/2022 Office Visit Surgical Oncology Asa Cameron MD 111 [facility], [facility] 2 [place], [place] [phone] (Wo rk) documented as of this encounter Procedures Procedure Name Priority Date/Time Associated Diagnosis Comme nts GROUP A STREP Routine 01/07/2008 11:51 Results fo r this CULTURE EST procedure are i n the results section. RAPID STREP Routine 01/07/2008 11:51 Results for this EST procedure are i n the results section. documented in this encounter Results RAPID STREP (01/07/2008 11:51 EST) Pathologist Sig nature Rapid Strep A Screen Neg [facility] Specimen Performing Organization Address City/[facility]/ZIP Code Phon e Number [facility] [address] [place] [address] SERVICES [facility] [address] [place] [address] CULTURE FOR GROUP A BETA STREPTOCOCCUS (01/07/2008 11:51 EST) Specimen Throat [facility] Description LAB Result NO GROUP A BETA [facility] STREPTOCOCCI LAB ISOLATED Report Status Final [facility] 01/09/2008 LAB Specimen Performing Organization Address City/[facility]/ZIP Code Phon e Number [facility] [address] [place] [address] SERVICES [facility] [address] [place] [address] documented in this encounter Visit Diagnoses Not on filedocumented in this encounter
--- OUTSIDE RECORDS SUMMARY | 2021-11-29 00:33 | XMS_ITS | Encounter Summary ---
:1970 Author Organization [facility] Address [address] [place] [address] Care Team Providers Name Role Phone Evert Perdomo MD Primary Care Provider Barbara Moreno MD Primary Care Provider Encounter Details Date Type Department Care Team Description 11/15/2003 Results Only [facility] - Krystal Min MD conversion 22 [facility] 111 [place] [address] [place], [place] [id number] [phone] Social History Tobacco Use Types Packs/Day Years [...] Hematology and Oncology Poppy Felton PA-C 111 [facility], [facility] 2 [place], [place] [phone] (Wo rk) 05/30/2022 Office Visit Surgical Oncology Asa Cameron MD 111 [facility], [facility] 2 [place], [place] [phone] (Wo rk) documented as of this encounter Procedures Procedure Name Priority Date/Time Associated Diagnosis Comme nts CYTOPATHOLOGY Routine 11/15/2003 0:00 EDT Results for this procedure are i n the results section . documented in this encounter Results CYTOPATHOLOGY (11/15/2003 0:00 EDT) Pathology Report: CYTOPATHOLOGY REPORT [facility] Reports generated via electronic interface contain masha ginal data; however they are lacking the format of the original re port. Caution should be taken when reading/interpreting unfo rmatted reports. Name: ? JIA BOTELLO ? Accession #: ? [id number] : ? 1970 (Age: 33) ??F ?Collect Date: ? 10/25 Location: ? RG ? Receive Date : ? 11/16/2003 Provider: ?KRYSTAL BRICENO MD Copy to: ? Specimen/Source: ?ThinPrep Pap Test, Cervix/ Endocervix Last Menstrual Period: ? 10/31/03 Other: ? HPVA - HPV testing requested if ASC-US on the current ThinPrep Pap test. ? SPECIMEN ADEQUACY ? Satisfactory for Evaluation - transformation zone component present GENERAL CATEGORIZATION ? Negative for Intraepithelial Lesion or Malignan cy ? Document reviewed and electronically signed by: ? NARCISA Yi(ASCP) ? Report Date: ??11/22/2003 14:16 End of Report Specimen Performing Organization Address City/State/[facility] Code Phon e Number [facility] [address] [place] [address] SERVICES [facility] [address] [place] [address] documented in this encounter Visit Diagnoses Not on filedocumented in this encounter Care Teams Medical Billing Instructor Relationship Specialty Start Date End Date Evert Perdomo MD PCP - General 10/13/08 05/13/16 108 [facility] 301 [place], [place] [address] Barbara Moreno MD PCP - General 08/02/08 10/12/08 1 [facility] Level 1 [place] [phone] documented as of this encounter
--- OUTSIDE RECORDS SUMMARY | 2021-11-29 00:33 | XMS_ITS | Encounter Summary ---
:1970 Author Organization [facility] Address [address] [place] [address] Care Team Providers Name Role Phone Evert Perdomo MD Primary Care Provider Encounter Details Date Type Department Care Team Description 02/01/2010 Orders Only [facility] Evert Perdomo ADHD (att ention deficit Adult Primary Care - MD Teo hyperactivity disorder) [place] 108 [facility] (Primary Dx) [address] [place] [address] [address] [phone] Social History Tobacco Use Types Packs/Day Years [...] Take 1 Tab by 30 Tab 0 200903/11/2010 27 mg CR tablet mouth daily. documented in this encounter Plan of Treatment Upcoming Encounters Date Type Specialty Care Team Description 12/16/2021 Appointment Infusion Therapy 04/15/2022 Office Visit Hematology and Oncology Poppy Felton PA-C 111 [facility] 2 [place], [place] [phone] (Wo rk) 05/30/2022 Office Visit Surgical Oncology Asa Cameron MD 111 [facility] 2 [place], [place] [phone] (Wo rk) documented as of this encounter Visit Diagnoses Diagnosis ADHD (attention deficit hyperactivity di sorder) - Primary Attention deficit disorder with hyperact ivity documented in this encounter Discontinued Medications Medication Sig Discontinue Reason Start Date End Date methylphenidate (CONCERTA) Take 1 Tab by Reorder 01/09/2010 02/01/2010 27 mg CR tablet mouth daily. documented as of this encounter Care Teams Cafeteria Cook Relationship Specialty Start Date End Date Evert Perdomo MD PCP - General 10/13/08 05/13/[address] [address] documented as of this encounter
--- OUTSIDE RECORDS SUMMARY | 2021-11-29 00:33 | XMS_ITS | Encounter Summary ---
:1970 Author Organization [facility] Address [address] [place] [address] Care Team Providers Name Role Phone Unavailable Primary Care Provider Unavailable Encounter Details Date Type Department Care Team Description 06/15/2001 - Hospital Encounter [facility] Roman Scott, 06/16/2001 Mother/Baby Unit 111 [facility] 111 [place], [place] [phone] [place] [phone] (Wo rk) Social History Tobacco Use Types [...] Discharge Disposition Disposition Code Departure Means Destination Home-Health Care Svc documented in this encounter Plan of Treatment Upcoming Encounters Date Type Specialty Care Team Description 12/16/2021 Appointment Infusion Therapy 04/15/2022 Office Visit Hematology and Oncology Poppy Felton PA-C 111 [facility], [facility] 2 [place], [place] [phone] (Wo rk) 05/30/2022 Office Visit Surgical Oncology Asa Cameron MD 111 [facility], [facility] 2 [place], [place] [phone] (Wo rk) documented as of this encounter Procedures Procedure Name Priority Date/Time Associated Diagnosis Comme nts HEMAGRAM & DIFF Routine 06/15/2001 22:42 EDT Resu lts for this procedure are i n the results section. documented in this encounter Results (ABNORMAL) HEMAGRAM & DIFF (06/15/2001 22:42 EDT) Pathologist Sig nature WBC 13.88 (H) 4.0 - 12.4 K/cmm [facility] RBC 4.53 3.86 - 5.04 M/cmm [facility] Hemoglobin 13.7 11.6 - 15.2 gm/dl [facility] HCT 40.8 34.9 - 44.4 % [facility] MCV 90 81 - 98 fl [facility] MCH 30.3 26.7 - 33.3 pg [facility] MCHC 33.6 32.1 - 35.9 gm/dl [facility] PLT 239 141 - 320 K/cmm [facility] RDW-CV 13.1 11.7 - 14.6 % [facility] Neutrophils 77.2 45.5 - 79.7 % [facility] Lymphocytes 17.6 15.0 - 46.8 % [facility] Monocytes 4.8 1.8 - 12.0 % [facility] Eosinophils 0.1 (L) 0.6 - 6.9 % [facility] Basophils 0.3 0.2 - 1.4 % [facility] ABS Neutrophils 10.72 (H) 2.20 - 8.85 K/cmm [facility] ABS Lymphs 2.45 1.09 - 3.30 K/cmm [facility] ABS Monocytes 0.66 0.1 - 0.8 K/cmm [facility] ABS Eosinophils 0.02 (L) 0.03 - 0.61 K/cmm [facility] ABS Basophils 0.03 0.01 - 0.11 K/cmm [facility] Type of Diff: Automated [facility] Specimen Performing Organization Address City/State/ZIP Code Phon e Number [facility] [address] [place] [address] SERVICES [facility] 111 [place] [phone] documented in this encounter Visit Diagnoses Not on filedocumented in this encounter
--- OUTSIDE RECORDS SUMMARY | 2021-11-29 00:34 | XMS_ITS | Encounter Summary ---
:1970 Author Organization [facility] Address [address] [place] [address] Care Team Providers Name Role Phone Unavailable Primary Care Provider Unavailable Encounter Details Date Type Department Care Team Description 03/29/1999 Hospital Encounter [facility] [place] MD 1 [place], [place] [phone] Social History Tobacco Use Types Packs/Day Years [...] and Oncology Poppy Felton PA-C 111 [facility], [facility], [facility] 2 [place], [place] [phone] (Wo rk) 05/30/2022 Office Visit Surgical Oncology Asa Cameron MD 111 [facility], [facility], [facility] 2 [place], [place] [phone] (Wo rk) documented as of this encounter Visit Diagnoses Not on filedocumented in this encounter
--- OUTSIDE RECORDS SUMMARY | 2021-11-29 00:34 | XMS_ITS | Encounter Summary ---
:1970 Author Organization [facility] Address [address] [place] [address] Care Team Providers Name Role Phone Evert Perdomo MD Primary Care Provider Barbara Moreno MD Primary Care Provider Philip Schulz MD Primary Care Provider Jia Minor PA-C Primary Care Provider Unavailable Filomena Ochoa PA-C Primary Care Provider [phone] Encounter Details Date Type Department Care Team Description 01/21/1999 Hospital Encounter [facility] Arreaga MD [address] [place], [place] [phone] Other Unknown, Provider, [address] [place], [place] [address] Social History Tobacco Use Types Packs/Day Years [...] Visit Hematology and Oncology Poppy Felton PA-C [address] [place] [phone] (Wo rk) 05/30/2022 Office Visit Surgical Oncology Asa Cameron MD [address] [phone] (Wo rk) documented as of this encounter Procedures Procedure Name Priority Date/Time Associated Diagnosis Comme nts QUANT BETA HCG, Routine 01/21/1999 10:45 Results for this EST procedure are i n the results section. documented in this encounter Results HCG (01/21/1999 10:45 EST) Pathologist Sig nature HCG 64818 mIU/ml [facility] Comment: <4 = Negative 4-10 = Borderline, recommend repeat. Specimen Performing Organization Address City/State/ZIP Code Phon e Number [facility] [address] [place] [address] SERVICES [facility] [address] [place] [address] documented in this encounter Visit Diagnoses Not on filedocumented in this encounter Additional Health Concerns Infection Onset Date Last Indicated Resolved Time R/O COVID-19 10/16/2019 10/16/2019 10/21/2019 22:15 EDT documented as of this encounter Care Teams Manager Benefit Relationship Specialty Start Date End Date Perdomo, Evert Teo, MD PCP - General 10/13/08 05/13/16 108 [facility] [address] [place], [place] [address] Barbara Moreno MD PCP - General 08/02/08 10/12/08 1 [facility] Level 1 [place] [phone] Philip Schulz MD PCP - General 05/14/16 12/06/[address] [place] [address] [place] [address] Jia Minor PA-C PCP - General 12/07/1703/01/18 Filomena Ochoa PA-C PCP - General 03/02/18 2 [place] [address] documented as of this encounter
--- OUTSIDE RECORDS SUMMARY | 2021-11-29 00:34 | XMS_ITS | Encounter Summary ---
:[address] [facility] Address [address] [place] [address] Care Team Providers Name Role Phone Evert Perdomo MD Primary Care Provider Barbara Moreno MD Primary Care Provider Philip Schulz MD Primary Care Provider Jia Minor PA-C Primary Care Provider Unavailable Filomena Ochoa PA-C Primary Care Provider [phone] Encounter Details Date Type Department Care Team Description 08/21/1999 Hospital Encounter [facility] - Roman Scott MD [address] [place] [address] Other Unknown, ProviderMD [address] [place] [address] Social History Tobacco Use Types Packs/Day Years [...] and Oncology Poppy Felton PA-C [address] [phone] (Wo rk) 05/30/2022 Office Visit Surgical Oncology Asa Cameron MD [address] [phone] (Wo rk) documented as of this encounter Procedures Procedure Name Priority Date/Time Associated Comments Diagnosis GROUP B STREPTOCOCCUS Routine 08/21/1999 15:30 Re sults for this SUSCEPTIBILITY EDT procedure are in the results section. documented in this encounter Results GROUP B STREPTOCOCCUS SUSCEPTIBILITY (08/21/1999 15:30 EDT) Specimen Description Vaginal and Rectal [facility] Result Heavy [facility] STREPTOCOCCUS, BETA HEMOLYTIC GROUP B (STREPTOCOCCUS A GALACTIAE) Report Status Final [facility] [id number] Specimen Performing Organization Address City/State/ZIP Code Phon e Number [facility] [address] [place] [address] SERVICES [facility] [address] [place] [address] documented in this encounter Visit Diagnoses Not on filedocumented in this encounter Additional Health Concerns Infection Onset Date Last Indicated Resolved Time R/O COVID-19 10/16/2019 10/16/2019 10/21/2019 22:15 EDT documented as of this encounter Care Teams Back Up Worker Relationship Specialty Start Date End Date Evert Perdomo MD PCP - General 10/13/08 05/13/16 108 [facility] 301 [place], [place] [address] Barbara Moreno MD PCP - General 08/02/08 10/12/08 1 [facility] Level 1 [place] [phone] Philip Schulz MD PCP - General 05/14/16 12/06/[address] [place] [address] [place] [address] Jia Minor PA-C PCP - General 12/07/1703/01/18 Filomena Ochoa PA-C PCP - General 03/02/18 2 [place] [phone] documented as of this encounter
--- OUTSIDE RECORDS SUMMARY | 2021-11-29 00:34 | XMS_ITS | Encounter Summary ---
:1970 Author Organization [facility] Address [address] [place] [address] Care Team Providers Name Role Phone Unavailable Primary Care Provider Unavailable Encounter Details Date Type Department Care Team Description 04/11/1999 Hospital Encounter [facility] Roman Machado MD [facility] 111 [facility] 111 [place], [place] [address] [place] [address] [phone] Social History Tobacco Use Types Packs/Day Years [...] Hematology and Oncology Poppy Felton, MARINAC [address] [facility] [address] [facility], Level 2 [place], [place] [phone] (Wo rk) 05/30/2022 Office Visit Surgical Oncology Asa Cameron MD 111 [place] A venue [facility], [facility], [facility] 2 [place], [place] [phone] (Wo rk) documented as of this encounter Procedures Procedure Name Priority Date/Time Associated Comments Diagnosis RAD US OBSTETRICAL Routine 04/11/1999 14:01 Resul ts for this COMPLETE EST procedure are i n the results section. documented in this encounter Results RAD US OBSTETRICAL COMPLETE (04/11/1999 14:01 EST) Anatomical Region Laterality Modality Other Specimen Impressions [facility] - 01/02/2009 13 :21 EST IMPRESSION: Single fetus in transverse position whos e size is consistent with dates. No abnormalities observed. /[facility] Narrative [facility] - 01/02/2009 13 :21 EST [facility] EXPOSURE OBSTETRICAL ULTRASOUND, 04/11/99 Scans of the pelvis show a single fetus in transverse position with head to the right. The fetus is active. Normal quantity of amniotic fluid. Posterior-fundal placenta. measurements are as follows: LMP: 12/09/98 = 17 weeks, 4 days BPD: 40 mm = 18 weeks, 1 day HC: 150 mm = 17 weeks, 6 days AC: 120 mm = 17 weeks, 4 days FL: 23 mm = 16 weeks, 6 days HUM: 25 mm = 17 weeks, 6 days EFW: 190 grams CM: Normal, measuring 3.4 mm. FH: Normal echocardiac activity a t a rate of 158 beats per minute was observed. U/S COMP. AGE: 17 weeks, 5 days, consis tent with dates. The stomach, kidneys, cord insertion, th ree-vessel cord, four-chamber heart view, outflow tracts, head, spine, and extremities all appear normal. The bladder also appears normal. Procedure Note Jacob Lomas, - 01/02/2009 [facility] EXPOSURE OBSTETRICAL ULTRASOUND, 04/11/99 Scans of the pelvis show a single fetus in transverse position with head to the right. The fetus is active. Normal quantity of amniotic fluid. Posterior-fundal placenta. measurements are as follows: LMP: 12/09/98 = 17 weeks, 4 days BPD: 40 mm = 18 weeks, 1 day HC: 150 mm = 17 weeks, 6 days AC: 120 mm = 17 weeks, 4 days FL: 23 mm = 16 weeks, 6 days HUM: 25 mm = 17 weeks, 6 days EFW: 190 grams CM: Normal, measuring 3.4 mm. FH: Normal echocardiac activity a t a rate of 158 beats per minute was observed. U/S COMP. AGE: 17 weeks, 5 days, consis tent with dates. The stomach, kidneys, cord insertion, th ree-vessel cord, four-chamber heart view, outflow tracts, head, spine, and extremities all appear normal. The bladder also appears normal. IMPRESSION IMPRESSION: Single fetus in transverse position whos e size is consistent with dates. No abnormalities observed. /[facility] Performing Organization Address City/State/ZIP Code Phon e Number [facility] 111 [facility] [place] [address] [facility] 111 [place], [place] [address] documented in this encounter Visit Diagnoses Not on filedocumented in this encounter
--- OUTSIDE RECORDS SUMMARY | 2021-11-29 00:34 | XMS_ITS | Encounter Summary ---
:1970 Author Organization [facility] Address [address] [place] [address] Care Team Providers Name Role Phone Unavailable Primary Care Provider Unavailable Encounter Details Date Type Department Care Team Description 03/06/1999 Hospital Encounter [facility] - Liz Weber MD Other Unknown, Provider, [address] [place] [address] Social History Tobacco Use Types Packs/Day Years [...] Hematology and Oncology Poppy Felton PA-C 111 [facility], [facility] [address] [place], [place] [phone] (Wo rk) 05/30/2022 Office Visit Surgical Oncology Asa Cameron MD [address] [facility], [facility], Level [address] [place], [place] [phone] (Wo rk) documented as of this encounter Procedures Procedure Name Priority Date/Time Associated Comments Diagnosis CYTOPATHOLOGY Routine 03/07/1999 13:53 Results fo r this EST procedure are i n the results section. PROFILE Routine 03/06/1999 14:39 Results for this EST procedure are i n the results section. BACTERIAL CULTURE, Routine 03/06/1999 14:34 Resul ts for this URINE EST procedure are i n the results section. N.GONORRHOEAE PROBE Routine 03/06/1999 6:57 Resul ts for this EST procedure are i n the results section. CHLAMYDIA TRACHOMATIS Routine 03/06/1999 6:57 Res ults for this PROBE EST procedure are i n the results section. documented in this encounter Results CYTOPATHOLOGY (03/07/1999 13:53 EST) Pathology Report: CYTOPATHOLOGY REPORT [facility] Reports generated via electronic interface contain masha ginal data; however they are lacking the format of the original re port. Caution should be taken when reading/interpreting unfo rmatted reports. Name: ? JIA BOTELLO ? Accession #: ? [id number] : ? 1970 (Age: 28) ??F ?Collect Date: ? 02/23 Location: ?Receive Date: ? 03/07/1999 Provider: ?KATYA WEBER MD Copy to: ?KATYA WEBER MD ? Specimen/Source: ?Store Worker ThinPrep Last Menstrual Period: ? GYNECOLOGIC ??CYTOPATHOLOG Y ??REPORT Name: JIA VANCE ?F C : 1970 ?? 28Y F ?Cl ient ID: ?? SS#: [id number] ? Ac cession #: [id number] Clinician: TIA ROA, KATYA ?? Location: [facility] ??Copy to: ?? Specimen: ?Store Worker ThinPrep ? Source: Cervix/Endocervix ?Collected: 03/06/99 ? Received: 03/07/1999 ?LMP: 12/09/98 ? Hormone Therapy: No ? : Yes ?Radiation Therapy: No ?? Post : No ?Chemotherapy: No ?IUD: No ? Prev Abnormal Pap: No ?? Clinical Hx: ?(Blank maldonado indicate information not provided on requisition) SPECIMEN ADEQUACY: ? Satisfactory For Evaluation ?? GENERAL CATEGORIZATION: ? BENIGN CELLULAR CHANGES ?? DESCRIPTIVE DIAGNOSIS: ? Fungal Organisms Present Morphologically Consis tent With Zehra ? Species ? Reviewed And Electronically Signed By: ? Francisca Verr iotto, CT(ASCP) ? Report Date : ?? 03/07/1999 [facility] Archived Tests - Final Diagnosis Text Field: Clinical History : ? Document reviewed and electronically signed by: ? Conversion ? Report Date: ??03/07/1999 00:00 End of Report Specimen Performing Organization Address City/State/ZIP Code Phon e Number [facility] [address] [place] [address] SERVICES [facility] [address] [place] [address] PROFILE (03/06/1999 14:39 EST) ABO and Rh Type O POS [facility] Antibody Screen Neg [facility] WBC 6.32 4.0 - 12.4 [facility] K/cmm LAB RBC 3.94 3.86 - 5.04 [facility] M/cm LAB Hemoglobin 12.4 11.6 - 15.2 [facility] gm/dl LAB HCT 35.8 34.9 - 44.4 % [facility] MCV 91 81 - 98 fl [facility] MCH 31.5 26.7 - 33.3 [facility] pg LAB MCHC 34.8 32.1 - 35.9 [facility] gm/dl LAB PLT 209 141 - 320 [facility] K/cmm LAB RDW-CV 12.0 11.7 - 14.6 % [facility] Hepatitis B Surface Neg [facility] Ag LAB Neutrophils 64.3 45.5 - 79.7 % [facility] Lymphocytes 27.3 15.0 - 46.8 % [facility] Monocytes 7.3 1.8 - 12.0 % [facility] Eosinophils 0.7 0.6 - 6.9 % [facility] Basophils 0.4 0.2 - 1.4 % [facility] ABS Neutrophils 4.07 2.20 - 8.85 [facility] K/cmm [facility] ABS Lymphs 1.72 1.09 - 3.30 [facility] K/cmm [facility] ABS Monocytes 0.46 0.1 - 0.8 [facility] ABS Eosinophils 0.04 0.03 - 0.61 [facility] ABS Basophils 0.03 0.01 - 0.11 [facility] Type of Diff: Automated [facility] Syphilis Sero (RPR) NONREACT. NR Dils [facility] Rubella IgG Scr Antibody detected [facility] Specimen Performing Organization Address City/[facility]/ZIP Code Phon e Number [facility] [address] [place] [address] SERVICES [facility] [address] [place] [address] BACTERIAL CULTURE, URINE (03/06/1999 14:34 EST) Pathologist Sig nature Specimen Description Urine [facility] Result No growth [facility] Report Status Final [facility] [id number] Specimen Performing Organization Address City/[facility]/ZIP Code Phon e Number [facility] [address] [place] [address] SERVICES [facility] [address] [place] [address] N.GONORRHOEAE PROBE (03/06/1999 6:57 EST) Specimen Cervix [facility] Description V[facility] LAB Result No Neisseria [facility] gonorrhoeae DNA LAB detected by sharepoint manager mediated amplification. Report Status Final [facility] [id number] [facility] Specimen Performing Organization Address City/State/ZIP Code Phon e Number [facility] [address] [place] [address] SERVICES [facility] [address] [place] [address] CHLAMYDIA TRACHOMATIS PROBE (03/06/1999 6:57 EST) Specimen Cervix [facility] Description [facility] Result No Chlamydia [facility] trachomatis DNA LAB detected by sharepoint manager mediated amplification. Report Status Final [facility] [id number] LAB Specimen Performing Organization Address City/[facility]/ZIP Code Phon e Number [facility] [address] [place] [address] SERVICES [facility] [address] [place] [address] documented in this encounter Visit Diagnoses Not on filedocumented in this encounter
--- OUTSIDE RECORDS SUMMARY | 2021-11-29 00:34 | XMS_ITS | Encounter Summary ---
:1970 Author Organization [facility] Address [address] [place] [address] Care Team Providers Name Role Phone Evert Perdomo MD Primary Care Provider Barbara Moreno MD Primary Care Provider Philip Schulz MD Primary Care Provider Jia Minor PA-C Primary Care Provider Unavailable Filomena Ochoa PA-C Primary Care Provider [phone] Encounter Details Date Type Department Care Team Description 10/22/1999 Hospital Encounter [facility] - Pramod Scott MD [address] [place] [address] Other Unknown, ProviderMD [address] [place] [address] Social History Tobacco Use Types Packs/Day Years [...] and Oncology Poppy Felton PA-C [address] [phone] (Wo rk) 05/30/2022 Office Visit Surgical Oncology Asa Cameron MD [address] [phone] (Wo rk) documented as of this encounter Procedures Procedure Name Priority Date/Time Associated Diagnosis Comme nts CYTOPATHOLOGY Routine 10/22/1999 0:00 EDT Results for this procedure are i n the results section . documented in this encounter Results CYTOPATHOLOGY (10/22/1999 0:00 EDT) Pathology Report: CYTOPATHOLOGY REPORT [facility] Reports generated via electronic interface contain masha ginal data; however they are lacking the format of the original re port. Caution should be taken when reading/interpreting unfo rmatted reports. Name: ? JIA BOTELLO ? Accession #: ? [id number] : ? 1970 (Age: 29) ??F ?Collect Date: ? 09/24 Location: ? [facility] ? Receive Date : ? 10/24/1999 Provider: ?PRAMOD SCOTT MD Copy to: ? Specimen/Source: ?ThinPrep Pap Test, Cervix/ Endocervix Last Menstrual Period: ? Menstrual/ Status: ? Post Hormonal/Contraceptive Status: ? Yes: Micronor Other: ? HPVL - HPV testing requested if LSIL/ASCUS/BALA on the current ThinPrep Pap test. ? SPECIMEN ADEQUACY ? Satisfactory for evaluation. GENERAL CATEGORIZATION ? Within Normal Limits ? Document reviewed and electronically signed by: ? NARCISA Fulton(ASCP) ? Report Date: ??10/29/1999 10:24 End of Report Specimen Performing Organization Address City/State/ZIP Code Phon e Number [facility] [address] [place] [address] SERVICES [facility] [address] [place] [address] documented in this encounter Visit Diagnoses Not on filedocumented in this encounter Additional Health Concerns Infection Onset Date Last Indicated Resolved Time R/O COVID-19 10/16/2019 10/16/2019 10/21/2019 22:15 EDT documented as of this encounter Care Teams Car Seat Maker Relationship Specialty Start Date End Date Evert Perdomo MD PCP - General 10/13/08 05/13/16 [address] [facility] [address] [place] [address] Barbara Moreno MD PCP - General 08/02/08 10/12/08 1 [facility] Level [address] [place] [address] Philip Schulz MD PCP - General 05/14/16 12/06/[address] [place] [address] Jia Minor PA-C PCP - General 12/07/1703/01/18 Filomena Ochoa PA-C PCP - General 03/02/18 [address] [place] [phone] documented as of this encounter
--- OUTSIDE RECORDS SUMMARY | 2021-11-29 00:34 | XMS_ITS | Encounter Summary ---
:1970 Author Organization [facility] Address [address] [place] [address] Care Team Providers Name Role Phone Evert Perdomo MD Primary Care Provider Barbara Moreno MD Primary Care Provider Philip Schulz MD Primary Care Provider Jia Minor PA-C Primary Care Provider Unavailable Filomena Ochoa PA-C Primary Care Provider Encounter Details Date Type Department Care Team Description 01/30/1999 Hospital Encounter [facility] - Lalit Miguel, [facility] [address] [place] [address] Social History Tobacco Use Types Packs/Day Years [...] and Oncology Poppy Felton PA-C [address] [phone] (Wo rk) 05/30/2022 Office Visit Surgical Oncology Asa Cameron MD [address] [phone] (Wo rk) documented as of this encounter Visit Diagnoses Not on filedocumented in this encounter Additional Health Concerns Infection Onset Date Last Indicated Resolved Time R/O COVID-19 10/16/2019 10/16/2019 10/21/2019 22:15 EDT documented as of this encounter Care Teams Formula Checker Relationship Specialty Start Date End Date Evert Perdomo MD PCP - General 10/13/08 05/13/[address] [phone] Barbara Moreno MD PCP - General 08/02/08 10/12/08 1 [facility] Level [address] [place] [phone] Philip Schulz MD PCP - General 05/14/16 12/06/[address] [place] [address] [address] [place], [place] [phone] Jia Minor PA-C PCP - General 12/07/1703/01/18 Filomena Ochoa PA-C PCP - General 03/02/18 [address] [place] [address] documented as of this encounter
--- OUTSIDE RECORDS SUMMARY | 2021-11-29 00:34 | XMS_ITS | Encounter Summary ---
:1970 Author Organization [facility] Address [address] [place] [address] Care Team Providers Name Role Phone Unavailable Primary Care Provider Unavailable Encounter Details Date Type Department Care Team Description 09/10/1999 - Hospital Encounter [facility] [place], Roman Hugh, 09/12/1999 Mother/Baby Unit 111 [facility] [address] [place], [place] [phone] [place] [phone] (Wo rk) Social History Tobacco Use Types [...] Hematology and Oncology Poppy Felton PA-C 111 [facility], [facility] 2 [place], [place] [phone] (Wo rk) 05/30/2022 Office Visit Surgical Oncology Asa Cameron MD 111 [facility], [facility] [address] [place] [phone] (Wo rk) documented as of this encounter Procedures Procedure Name Priority Date/Time Associated Comments Diagnosis COMPLETE BLOOD COUNT Routine 09/11/1999 8:35 Resu lts for this EDT procedure are i n the results section. URINE MICROSCOPIC Routine 09/10/1999 14:27 Result s for this EDT procedure are i n the results section. URINALYSIS WITH Routine 09/10/1999 14:27 Results for this MICROSCOPIC IF EDT procedure are in POSITIVE the results section. COMPLETE BLOOD COUNT Routine 09/10/1999 8:05 Resu lts for this EDT procedure are i n the results section. documented in this encounter Results (ABNORMAL) HEMAGRAM (09/11/1999 8:35 EDT) Pathologist Sig nature WBC 11.71 4.0 - 12.4 K/cmm [facility] RBC 3.74 (L) 3.86 - 5.04 M/cmm [facility] Hemoglobin 11.6 11.6 - 15.2 gm/dl [facility] HCT 33.5 (L) 34.9 - 44.4 % [facility] MCV 90 81 - 98 fl [facility] MCH 31.0 26.7 - 33.3 pg [facility] MCHC 34.6 32.1 - 35.9 gm/dl [facility] PLT 167 141 - 320 K/cmm [facility] RDW-CV 13.1 11.7 - 14.6 % [facility] Specimen Performing Organization Address City/State/ZIP Code Phon e Number [facility] [address] [place] [address] SERVICES [facility] [address] [place] [address] URINE MICROSCOPIC (09/10/1999 14:27 EDT) WBC, UA None seen 0 - 5 /HPF [facility] RBC, UA None seen 0 - 5 /HPF [facility] Squam Epithel, UA None seen NS /HPF [facility] Renal Epithel, UA None seen NS /HPF [facility] Bacteria, UA None seen NS /HPF [facility] Crystals, UA None seen /HPF [facility] Hyaline Casts, UA None seen /LPF [facility] UA Comment Microscopic results [facility] are unreliable on LAB urines unrefrig >2hrs or refrig >8hrs. Specimen Performing Organization Address [facility] Phon e Number [facility] [address] [place] [address] SERVICES [facility] [address] [place] [address] (ABNORMAL) URINALYSIS (09/10/1999 14:27 EDT) Pathologist Sig nature Color, UA Yellow [facility] Clarity, UA Clear [facility] Glucose, UA Norm NORM [facility] Bilirubin, UA Neg NEG [facility] Ketones, UA Neg NEG [facility] Specific [place], 1.010 1.005 - 1.02 [facility] Urine Blood, UA Trace (A) NEG [facility] pH, UA 7.0 5.0 - 9.0 [facility] Protein, UA Neg NEG [facility] Urobilinogen, UA Norm NORM mg/dL [facility] Nitrite, UA Neg NEG [facility] Leuk Esterase Neg NEG [facility] Specimen Performing Organization Address City/[facility]/ZIP Code Phon e Number [facility] [address] [place] [address] SERVICES [facility] [address] [place] [address] (ABNORMAL) HEMAGRAM (09/10/1999 8:05 EDT) Pathologist Sig nature WBC 15.43 (H) 4.0 - 12.4 K/cmm [facility] RBC 4.56 3.86 - 5.04 M/cmm [facility] Hemoglobin 14.0 11.6 - 15.2 gm/dl [facility] HCT 40.5 34.9 - 44.4 % [facility] MCV 89 81 - 98 fl [facility] MCH 30.7 26.7 - 33.3 pg [facility] MCHC 34.6 32.1 - 35.9 gm/dl [facility] PLT 227 141 - 320 K/cmm [facility] RDW-CV 12.8 11.7 - 14.6 % [facility] Specimen Performing Organization Address City/State/ZIP Code Phon e Number [facility] [address] [place] [address] SERVICES [facility] [address] [place] [address] documented in this encounter Visit Diagnoses Not on filedocumented in this encounter
--- NOTE | 2021-11-29 07:21 | DI.MRI_ITS ---
Exam(s) MR UPPER JOINT RT WO EXAM: MR UPPER JOINT RT WO CLINICAL HISTORY: traumatic weakness and pain,TRAUMATIC TEAR,SLAP TEAR,S43.431A,S46.011A TECHNIQUE: Multiplanar multisequence MRI of the shoulder was performed. COMPARISON: CR XR SHOULDER RT COMPLETE 2+V from 11/20/2021 FINDINGS: MARROW:There is no evidence of fracture, Hill-Sachs deformity, nor ominous osseous lesions. ROTATOR CUFF MECHANISM: AC JOINT/ACROMIUM: No obvious degenerative changes in the AC joint.. There is no evidence of os acromiale. Supraspinatus: There is mild increased signal at the musculotendinous junction of the supraspinatus, anteriorly, best seen on the sagittal fat sat T2 images. This is immediately above intra-articular b iceps tendon. Consistent with partial tearing. There is no full-thickness tear of the supraspinatus . No atrophy. There is, however, a tiny sliver of fluid in the subacromial bursa noted. Infraspinatus: Intact. No evidence of tear nor muscle atrophy. Teres Minor: Intact. No evidence of tear nor muscle atrophy. Subscapularis/anterior cuff: Intact. No abnormal signal at the level of the multipennate insertional fibers. There is a small degenerative subarticular cyst in the anterior aspect of the lesser tuberos ity. No significant tear nor atrophy of the anterior cuff-subscapularis. BICEPS TENDON/LABRUM: The biceps tendon is not displaced from the intertubercular groove. There is s ome fluid in its tendon sheath. There is mild increased signal at its attachment to the anterosuperi or labrum but no high-grade tear. There is mild increased signal seen in the anterior labrum. No ev idence of high-grade SLAP-type tear. The posterior labrum appears intact. Visualize anterior labrum appears intact. Inferior labrum appears intact. Inferior glenohumeral ligament is intact. There i s no bony Bankart lesion. There is no significant periosteal stripping off the anterior scapula at t his level. GLENOHUMERAL JOINT: There is a small joint effusion. There is no obvious loose intra-articular body. No degenerative subarticular cysts in the osseous glenoid. No osteophytes on either side of the darlin int. No subarticular edema. QUADRILATERAL SPACE: No evidence of mass in the region of the axillary nerve and dorsal circumflex hu meral vessels. Visualized triceps muscle at this level appears unremarkable. IMPRESSION: 1. Subtle increased signal within the intra-articular biceps tendon and anterosuperior labrum but no prominent SLAP tear evident. 2. Mild increased signal within the rotator cuff interval which appears to be associated with the mos t anterior aspect the supraspinatus just above the biceps tendon, possibly a small focus of partial-t hickness tearing. There is a sliver of fluid in the subacromial-subdeltoid toy bursa but there does not appear to be a full-thickness tear of the rotator cuff. Also no muscle atrophy. 3. There is a small 3-4 millimeter subarticular cyst in the lesser tuberosity but no evidence of ante rior cuff-subscapularis tear. A few tiny subarticular cysts are also seen in the posterolateral aspe ct of the humeral head subjacent to the infraspinatus attachment. 4. No degenerative changes seen within the glenohumeral joint. There is, however, of a small-modera te size joint effusion. There are loose intra-articular bodies. 5. No significant degenerative changes in the acromioclavicular joint. DATA REPOSITORY:
== END ==
PROVIDERS: PCP Internal Medicine; Visit Provider Student in an Organized Health Care Education/Training Program
DX: S43.431A Superior glenoid labrum lesion of right shoulder, initial encounter (principal)
CPT/HCPCS: 73221